=== PATIENT | female | born 1970 | race Caucasian/White ===

== ENCOUNTER 2017-10-02 11:20 | Emergency (ER) | payer OTHER, SELFPAY ==
[2017-10-02 11:21] VITALS: BP 117/82; PULSE 69; RESP 17; TEMP 36.9; O2SAT 96; BMI 28.9
--- NOTE | 2017-10-02 11:30 | RAD_ITS ---
STUDY: X-RAY - LEFT HUMERUS REASON FOR EXAM: Female, 47 years old. Status post fall 4 days ago. TECHNIQUE: AP and lateral view(s) of the humerus. COMPARISON: None. FINDINGS: Normal visualized humerus. There is no demonstrated fracture or osseous destructive process. Partially visualized left pacemaker is seen. There is no demonstrated soft tissue abnormality. RAD/Humerus min 2 Views IMPRESSION: No evidence of acute fracture or dislocation. Electronically Signed: Dawood Christensen MD at 12:14 EDT Tel , Service support ,
--- NOTE | 2017-10-02 11:37 | ED.DCSUM_ITS ---
- ER Visit Summary Date of Service: 10/02/17 Chief Complaint: Left upper arm injury History of Present Illness: The patient is a 47 F presents to the emergency department with injury to her left upper arm. The patient had a mechanical fall in the bathtub 4 days ago. She had the outside of her left shoulder just at her proximal humerus. Over the past 2 days, the pain is worsened. She has had increasing swelling. She has had difficult range of motion. She did not strike her head. She denies loss of consciousness. She denies any other systemic symptoms. She is not on anticoagulants. Physical Examination: Exam is relatively unremarkable. Patient has ecchymosis over the proximal humerus. There is no pain to palpation along the shoulder. There is no pain at the elbow. There is no pain with pronation or supination of the forearm. She has normal pulses. Axillary nerve is preserved. No tenderness over the ribs. Lungs are clear. GCS is 15. Test Results: [] Emergency Department Course and Treatment: The patient fell onto her left upper humerus. Compartments are soft. Pulses are normal. She does have some ecchymosis around the area. Plain films were obtained. There is no evidence of acute fracture. I do feel this is likely bony contusion. The patient was placed in a sling but counseled on increasing range of motion to prevent frozen shoulder. She was given 2 days of analgesics and will follow up with PCP for reevaluation. Treatment Plan: [] Disposition: Discharge Impression: 1. Left proximal humerus contusion This note was generated with [employer] dictation software. It may contain incorrect words, spelling, and punctuation that were not noted in review of the chart prior to signing ED Disposition - Plan for ED Patient: Chief Complaint: Upper Extremity Injury Instructions: ED Sprain Shoulder Prescriptions: Oxycodone HCl/Acetaminophen [Percocet 5/325] 1 tab PO Q6H PRN PRN 3 Days #10 tab PRN Reason: Pain Referrals: Oliver Lyons MD [Primary Care Provider] -
[2017-10-02] MEDS: oxyCODONE 5 MG Tablet PO (11:40)
[2017-10-02 12:19] VITALS: BP 115/76; PULSE 81; RESP 14; O2SAT 99
== END 2017-10-02 12:38 | disposition home or self-care (01) ==
LOC: ED 12:22
PROVIDERS: Emergency Provider Emergency Medicine; Family Provider Family Medicine; PCP Family Medicine
DX: S40.022A Contusion of left upper arm, initial encounter (principal); W18.2XXA Fall in (into) shower or empty bathtub, initial encounter; Y93.9 Activity, unspecified; Y92.002 Bathroom of unspecified non-institutional (private) residence as the place of occurrence of the external cause; Y99.9 Unspecified external cause status; I10 Essential (primary) hypertension; E78.00 Pure hypercholesterolemia, unspecified
CPT/HCPCS: 73060; 99283

== ENCOUNTER 2018-04-26 09:22 | Emergency (ER) | payer OTHER, SELFPAY ==
[2018-04-26 09:23] VITALS: BP 117/71; PULSE 69; RESP 20; TEMP 36.7; O2SAT 98; BMI 28.3
[2018-04-26 09:26] VITALS: O2SAT 100
[2018-04-26 09:53] VITALS: PULSE 69; RESP 16
[2018-04-26] MEDS: Ipratropium/Albuterol Sulfate 3 ML AMPUL.NEB INHALATION (09:53)
[2018-04-26 10:01] LABS: Hematocrit 41.5 % (37-47); Hemoglobin 13.6 g/dl (12.0-15.0); Mean Corp Hgb Conc 32.8 g/gl (32-36); Mean Corpuscular Hgb 29.3 pg (27.0-32.0); Mean Corpuscular Volume 89.4 fL (81-99); Mean Platelet Vol. 10.7 fl (6.2-12.0); Platelet Count 225 K/mm3 (150-450); RBC Distribution Width CV 13.2 % (11.6-14.6); RBC Distribution Width SD 42.9 fl (35.1-43.9); Red Blood Count 4.64 M/mm3 (4.2-5.4); White Blood Count 6.6 K/mm3 (4.4-11.0)
[2018-04-26 10:02] LABS: Scan Indicated on CBC? Y/N NO
[2018-04-26 10:10] LABS: Anion Gap 6 (5-15); BUN 7 mg/dL (7-18); BUN/Creat Ratio 7.8 RATIO (10-20); Calcium,Total 8.4 mg/dL (8.5-10.1); Chloride 107 mmol/L (98-107); D-Dimer Quantitative (DVT/PE) 0.42 FEU/ug/m (0.27-0.49); EST Glomerular Filtration Rate 72 mL/min (>60); Est Glom Filt Rate - Afr Amer 87 mL/min (>60); Estimated Creatinine Clearance 69.53 ml/min; Glucose 92 mg/dL (74-106); Potassium 4.2 mmol/L (3.5-5.1); Sodium Level 139 mmol/L (136-145)
[2018-04-26 10:23] LABS: BNP,B-Type NATRIURETIC PEPTIDE 8.3 pg/mL (0-100)
[2018-04-26 10:30] VITALS: BP 92/61; PULSE 72; RESP 16; O2SAT 98
--- NOTE | 2018-04-26 10:36 | ED.DCSUM_ITS ---
- ER Visit Summary Date of Service: 04/26/18 Chief Complaint: [Shortness of breath and cough History of Present Illness: The patient is a 48 F [presents to the emergency department complaint of shortness of breath that started 4 days ago. Patient's had a cough with some intermittent sputum production which she typically just swallows. Patient had a fever last night up to 101. Patient complains of this of breath with activity and exertion. Patient was seen at urgent care today and referred to the emergency department for further workup and evaluation. Patient did have a chest x-ray today at the urgent care that was unremarkable. Patient denies any headache or body aches. She denies any sick contacts. Patient does have a history of cardiomyopathy and history of CHF. She denies any weight gain or excessive edema.] Physical Examination: [HEENT-PERRLA, EOMI. Cranial nerves II through XII grossly intact. TMs clear. Mucous membranes moist. No adenopathy. Cardiovascular-regular rate and rhythm without murmur or ectopy Lungs-good aeration bilaterally with some faint expiratory wheezes noted bilaterally. No accessory muscle use or retractions. No conversational dyspnea. Abdomen-normoactive bowel sounds, soft, nontender, no rebound or rigidity, no peritoneal signs. Extremities-intact ?4, normal range of motion, normal pulses, atraumatic] Test Results: [CBC with differential obtained was normal. Chemistries were normal. BNP was normal at 8.3. D-dimer was normal at 24 2. Influenza screen was negative.] Emergency Department Course and Treatment: [Patient received a DuoNeb aerosol and was given prednisone 40 mg p.o.] Treatment Plan: [Patient will be started on prednisone and albuterol MDI as well as Tessalon Perles for cough. I suspect patient likely has a viral asthmatic bronchitis.] Disposition: [Discharged home in stable condition. Patient advised to follow-up with primary care physician within next 5-7 days. Patient advised to return if increasing shortness of breath or condition should worsen anyway.] Impression: [Asthmatic bronchitis] This note was generated with [employer] dictation software. It may contain incorrect words, spelling, and punctuation that were not noted in review of the chart prior to signing ED Disposition - Plan for ED Patient: Chief Complaint: Shortness of Breath Referrals: Oliver Lyons MD [Primary Care Provider] -
--- NOTE | 2018-04-26 10:36 | ED.DEP ---
ED Disposition - Plan for ED Patient: Chief Complaint: Shortness of Breath Instructions: ED Bronchitis Asthmatic Prescriptions: Benzonatate [Tessalon Perle] 200 mg PO TID PRN PRN #20 cap PRN Reason: Cough Prednisone [Deltasone] 20 mg PO BID #10 tab Referrals: Oliver Lyons MD [Primary Care Provider] - 5-7 Days
[2018-04-26] MEDS: predniSONE 20 MG Tablet 40 MG PO (10:45)
[2018-04-26 11:15] VITALS: BP 113/56; PULSE 78; RESP 16; O2SAT 99
== END 2018-04-26 11:16 | disposition home or self-care (01) ==
PROVIDERS: Emergency Provider Emergency Medicine; Family Provider Family Medicine; PCP Family Medicine
DX: J45.909 Unspecified asthma, uncomplicated (principal)
CPT/HCPCS: 80048; 83880; 85027; 85379; 87804; 94640; 99285

== ENCOUNTER 2018-12-28 13:41 | Emergency (ER) | payer OTHER, SELFPAY ==
[2018-12-28 13:42] VITALS: BP 115/75; PULSE 88; RESP 18; TEMP 36.7; O2SAT 97
--- NOTE | 2018-12-28 14:05 | CT_ITS ---
STUDY: CT BRAIN WITHOUT CONTRAST REASON FOR EXAM: Female, 48 years old. Headaches and nausea. RADIATION DOSAGE (If Supplied By Facility): CTDIvol = ( 44.99 ) mGy, DLP = ( 779.24 ) mGycm TECHNIQUE: Transaxial CT imaging of the brain was performed without administration of intravenous contrast material. Individualized dose optimization techniques were used for this CT. COMPARISON: No relevant priors. FINDINGS: Normal soft tissue structures. Normal calvarium. Normal size ventricles and extra-axial spaces for the patient's age. Normal white matter tracts of the cerebral hemispheres. Normal basal ganglia and thalami. Normal brainstem. Normal cerebellum. There is no intracranial hemorrhage. There are no findings of an acute ischemic infarction. Normal visualized paranasal sinuses. CT/Brain/Head without Contrast IMPRESSION: Normal unenhanced CT scan of the brain. Electronically Signed: Abel Lundberg, at 15:12 EDT , Service support ,
--- NOTE | 2018-12-28 14:10 | ED.DCSUM_ITS ---
- ER Visit Summary Date of Service: 12/28/18 Chief Complaint: Headache History of Present Illness: The patient is a 48 F pain gradual onset of a frontal headache yesterday. She thinks it might just be from it being hot at her workplace. Said their air conditioning went out. Denies any falls or trauma. No sinus congestion. No fever. No neck pain. She is on no blood thinners. There is no family history of intracranial bleeds or aneurysms. She denies any neurological symptoms. He does have a history of cardiomyopathy of uncertain etiology. Physical Examination: Middle-aged female no acute distress vital signs stable afebrile. She is not septic or toxic. HEENT exam unremarkable. Atraumatic. Pupils are reactive light. No frontal or maxillary sinus tenderness. No signs of trauma. No facial droop. Neck nontender. Lungs clear to auscultation bilaterally. Heart regular rhythm no murmur. Abdomen soft nontender. Extremities moves all 4. Calves nontender no edema no cords. Neurologically she is awake and alert with no focal motor or sensory deficits. No facial droop. Normal speech. Vital signs are faint bilaterally. Dorsi plantar flexion intact bilaterally. Fingertip to nose [id number] all within normal limits. NIH is 0. Test Results: CT scan of the brain without contrast shows no acute abnormality. Reviewed by me and read by the radiologist as normal. Emergency Department Course and Treatment: Patient treated with IV fluids and IV Toradol. Repeat exam at 1610 patient is doing better but still has a headache. She was also given IV Nubain. On repeat exam at 1601 p.m. her headache is resolving. Her neurologic exam remains normal. She is comfortable being discharged home. Treatment Plan: Tylenol Motrin for pain. Follow-up if not improving return if a lot worse. Disposition: Discharge Impression: Acute headache of uncertain etiology This note was generated with [employer] software. It may contain incorrect words, spelling, and punctuation that were not noted in review of the chart prior to signing ED Disposition - Plan for ED Patient: Referrals: Oliver Lyons MD [Primary Care Provider] -
[2018-12-28] MEDS: Ondansetron 4 MG/2 ML Vial IV (14:41)
[2018-12-28] MEDS: Ketorolac 30 MG/ML Syringe IV (14:41)
[2018-12-28] MEDS: 0.9% Normal Saline 1,000 ML 1000 ML IV (14:41)
[2018-12-28] MEDS: Nalbuphine 10 MG/ML Ampul IV (15:41)
--- NOTE | 2018-12-28 16:03 | ED.DEP ---
ED Disposition - Plan for ED Patient: Disposition: Home or Assisted Living Instructions: HEADACHE, Unspecified Referrals: Oliver Lyons MD [Primary Care Provider] - 3-5 Days if not improving Additional Instructions: Plenty of fluids and rest. Your CAT scan brain is normal today.
[2018-12-28 16:41] VITALS: BP 114/66; PULSE 60; RESP 16; O2SAT 98
--- NOTE | 2018-12-28 16:42 | ED.RN ---
REVIEWED D/C INSTRUCTIONS, FOLLOW UP CARE, AND S/S THAT WOULD WARRANT A RETURN TO THE ED WITH PT. PT VERBALIZED AN UNDERSTANDING AND DENIES FURTHER QUESTIONS FOR THIS RN. PT SKIN P/W/D, RESP EVEN AND UNLABORED, PT A&O X 3, NO DISTRESS NOTED. PT AMBULATED OUT OF ED, GAIT STEADY.
== END 2018-12-28 16:43 | disposition home or self-care (01) ==
PROVIDERS: Emergency Provider Emergency Medicine; Family Provider Family Medicine; PCP Family Medicine
DX: R51 Headache (principal); I42.9 Cardiomyopathy, unspecified; R11.0 Nausea
CPT/HCPCS: 70450; 96361; 96374; 96375; 99284; J7030; A4216; J2405

== ENCOUNTER 2019-05-02 09:23 | Emergency (ER) | payer OTHER, SELFPAY ==
[2019-05-02] VITALS (7 sets, daily range): BP systolic 98–117; BP diastolic 43–55; PULSE 79–86; RESP 16–33; TEMP 36.2; O2SAT 96–100; BMI 28.3
--- NOTE | 2019-05-02 09:34 | EKG12_ITS ---
Test Reason : SOB Blood Pressure : / mmHG Vent. Rate : 067 BPM Atrial Rate : 067 BPM P-R Int : 000 ms QRS Dur : 068 ms QT Int : 384 ms P-R-T Axes : 031 159 041 degrees QTc Int : 405 ms Ventricular-paced rhythm Biventricular pacemaker detected Abnormal ECG Confirmed by SUGAR WRIGHT, REKHA ([id number]), film and video editor ROBERT DOWLING ([id number]) on 05/05/2019 12:17:27 PM Referred By: ANANDA Confirmed By:MARCELINO WOOTEN MD
--- NOTE | 2019-05-02 09:35 | ED.VIS.GEN ---
History of Present Illness Chief Complaint: Shortness of Breath Informant: Patient Onset: Yesterday Narrative: Worsening dyspnea since yesterday. States cough for the past 2 months with intermittent productive. No fevers. No tobacco history. No asthma or COPD history. History of nonischemic cardiomyopathy diagnosed 11 years ago with an AICD followed by cardiology from [facility]. States that 15 minutes of chest pain yesterday however was under a lot of stress. States wheezing. Today felt more short of breath, breathing faster with tingling in the fingers around her mouth. Reports took her anxiety medicines with no relief. No current chest pain. Prior similar symptoms: Yes Past Medical History - Allergies and Home Meds Allergies/Adverse Reactions: Allergies naproxen Allergy (Verified 12/28/18 13:42) Hives vancomycin Allergy (Verified 12/28/18 13:42) Rash carvedilol Adverse Reaction (Verified 12/28/18 13:42) Upset Stomach Primary Care Physician: Oliver Lyons MD [Primary Care Provider] - Surgical History: appendectomy, cholecystectomy, - - Pacemaker, ICD. Smoking Status: Never smoker - Family History Maternal Family History: Reports: No pertinent history Paternal Family History: Reports: No pertinent history Review of Systems General: Denies: Chills, Fever, Sweats Eyes: Denies: Visual changes - bilaterally, Diplopia ENT: Denies: Rhinorrhea, Sore throat Cardiovascular: Denies: Chest pain, Palpitations Respiratory: Reports: Dyspnea, Cough, Sputum. Denies: Dyspnea on exertion Gastrointestinal: Denies: Abdominal pain, Nausea, Vomiting, Diarrhea, Melena, Hematochezia Genitourinary: Denies: Dysuria, Hematuria, Frequency Musculoskeletal: Denies: Back pain, Extremity Pain Skin: Denies: Rash, Wounds Neurological: Denies: Headache, Weakness, Numbness Physical Exam Vital Signs/Narrative: Vital Signs Temp Pulse Resp BP Pulse Ox 05/02/19 09:25 97.1 F L 81 30 H 117/43 L 100 Inital Vital Signs reviewed: Yes General: Well nourished, Well developed, - - Mildly hyperventilating, was able to calm down with coaching Head: Normocephalic, Atraumatic Eyes: Perrl, EOMI ENT: Moist mucous membranes, No rhinorrhea Neck: Supple, Nontender Cardiovascular: Regular rate, Regular rhythm, No murmurs Respiratory: Chest nontender, Wheezing, - - Mild expiratory wheeze. Abdomen: Soft, Nontender, Nondistended, Normal bowel sounds Back: Nontender, Normal Inspection Extremities: Nontender, No edema Skin: Normal color, No rash Neurological: Alert, Oriented x3, Cranial nerves II-XII grossly intact, Normal Strength, Normal Sensation Psychological: Normal affect, Normal Mood Diagnostic/Tx/Re-eval Clinical Impression(s) from Imaging Studies Chest X-Ray 05/02/19 09:59 IMPRESSION: No acute cardiopulmonary findings Electronically Signed: Mainor Ayon DO at 10:19 EST Tel , Service support , Abnormal Lab Results 05/02/19 05/02/19 09:50 09:50 WBC 9.5 RBC 4.30 Hgb 12.4 Hct 36.9 L MCV 85.8 MCH 28.8 MCHC 33.6 RDW Std Deviation 39.4 RDW Coeff of Irma 12.6 Plt Count 279 MPV 10.1 Immature Gran % (Auto) 0.300 Neut % (Auto) 73.3 H Lymph % (Auto) 17.1 L Angelina % (Auto) 7.4 Eos % (Auto) 1.5 Baso % (Auto) 0.4 Absolute Neuts (auto) 7.0 Absolute Lymphs (auto) 1.63 Nucleated RBC % 0 Sodium 141 Potassium 3.2 L Chloride 110 H Carbon Dioxide 22.0 Anion Gap 9 BUN 13 Creatinine 0.91 Estim Creat Clear Calc 68.03 Est GFR (MDRD) Af Amer 85 Est GFR (MDRD) Non-Af 70 BUN/Creatinine Ratio 14.3 Glucose 106 Calcium 9.1 Troponin I < 0.015 - EKG Initial EKG Interpretation: Sinus Rhythm - Sinus rate of 67, biventricular pace, T wave inversion in aVL, artifacts noted on inferior and extreme lateral leads. - Medical Decision Making patient with mild wheeze and hyperventilation on exam. Patient allowed toPatient allowed to breath into bag, duoneb tx given. improved. EKG and cardiac w/u neg. CXR neg. mild hypokalemia, orally replaced, no diuretics. PRN MDI, d/w viral syndrome and hyperventilation syndrome. Follow up as outpatient. ED Disposition - Plan for ED Patient: Disposition: Home or Assisted Living Diagnosis: Upper respiratory infection, Hyperventilation syndrome, Hypokalemia Instructions: BRONCHITIS, No Antibiotic (Adult), Hyperventilation Syndrome Prescriptions: Albuterol Inhaler [Ventolin Hfa] 1 - 2 puff INHALATION Q4H PRN PRN #1 inhaler PRN Reason: Wheezing Referrals: Oliver Lyons MD [Primary Care Provider] - 3-5 Days if not improving
[2019-05-02] MEDS: Ipratropium/Albuterol Sulfate 3 ML AMPUL.NEB INHALATION (09:42)
--- NOTE | 2019-05-02 09:59 | RAD_ITS ---
STUDY: X-RAY CHEST REASON FOR EXAM: Female, 49 years old. Shortness of breath. Cough. TECHNIQUE: PA and lateral views of the chest. COMPARISON: October 03, 2015. FINDINGS: Left-sided cardiac device in position. Cardiac silhouette unremarkable. Pulmonary vascularity unremarkable. Aorta unremarkable. No focal patchy airspace opacities. No pleural effusions. Right upper quadrant surgical clips. Osseous structures intact. No pneumothorax. RAD/Chest PA and Lateral IMPRESSION: No acute cardiopulmonary findings Electronically Signed: Mainor Ayon DO at 10:19 EST Tel , Service support ,
[2019-05-02 10:00] LABS: Absolute Lymphocyte Count 1.63 X10^3/uL (0.83-4.51); Basophil# 0.04 X10^3/uL; Basophil% 0.4 % (0-1); Eosinophil# 0.14 X10^3/uL; Eosinophils% 1.5 % (0-5); Hematocrit 36.9 % (37-47); Hemoglobin 12.4 g/dL (12.0-15.0); Lymphocyte # 1.63 X10^3/ul (4.0); Lymphocyte % 17.1 % (19-41); Mean Corp Hgb Conc 33.6 g/dL (32-36); Mean Corpuscular Hgb 28.8 pg (27.0-32.0); Mean Corpuscular Volume 85.8 fL (81-99); Mean Platelet Vol. 10.1 fl (6.2-12.0); Monocyte# 0.71 X10^3/uL; Monocyte% 7.4 % (0-10); NRBC Flagged by Analyzer 0 % (0-5); Neutrophil # 6.99 X10^3/uL (2.7-7.7); Neutrophil % 73.3 % (47-70); Platelet Count 279 K/mm3 (150-450); RBC Distribution Width CV 12.6 % (11.6-14.6); RBC Distribution Width SD 39.4 fl (35.1-43.9); White Blood Count 9.5 K/mm3 (4.4-11.0)
[2019-05-02 10:22] LABS: Anion Gap 9 (5-15); BUN 13 mg/dL (7-18); BUN/Creat Ratio 14.3 RATIO (10-20); Calcium,Total 9.1 mg/dL (8.5-10.1); Chloride 110 mmol/L (98-107); Creatinine, Serum 0.91 mg/dL (0.55-1.02); EST Glomerular Filtration Rate 70 mL/min (>60); Est Glom Filt Rate - Afr Amer 85 mL/min (>60); Estimated Creatinine Clearance 68.03 ml/min; Glucose 106 mg/dL (74-106); Potassium 3.2 mmol/L (3.5-5.1); Sodium Level 141 mmol/L (136-145)
== END 2019-05-02 10:49 | disposition home or self-care (01) ==
PROVIDERS: Emergency Provider Emergency Medicine; Family Provider Family Medicine; PCP Family Medicine
DX: J06.9 Acute upper respiratory infection, unspecified (principal); F45.8 Other somatoform disorders; E87.6 Hypokalemia; Z90.49 Acquired absence of other specified parts of digestive tract; Z95.810 Presence of automatic (implantable) cardiac defibrillator
CPT/HCPCS: 71046; 80048; 84484; 85025; 93005; 94640; 99285; A4216

== ENCOUNTER 2019-06-10 15:50 | Emergency (ER) | payer OTHER, SELFPAY ==
[2019-05-02 09:25] VITALS: BMI 28.3
[2019-06-10 15:51] VITALS: BP 113/69; PULSE 97; RESP 16; TEMP 37.4; O2SAT 97; BMI 27.8
--- NOTE | 2019-06-10 15:54 | ED.RN ---
PT STATES NEVERMIND AND WALKED OUT OF TRIAGE
== END 2019-06-10 16:54 | disposition left against medical advice (07) ==
LOC: ED 16:30
PROVIDERS: Emergency Provider Emergency Medicine; Family Provider Family Medicine; PCP Family Medicine
DX: R51 Headache (principal)

== ENCOUNTER 2020-01-14 00:05 | Emergency (ER) | payer BC, SELFPAY ==
[2020-01-14 00:07] VITALS: BP 138/71; PULSE 77; PULSE 79; RESP 16; RESP 18; TEMP 36.4; O2SAT 100; BMI 31.0
--- NOTE | 2020-01-14 00:13 | ED.DCSUM_ITS ---
History of Present Illness Chief Complaint: Nausea/Vomiting Informant: Patient Narrative: Presenting with abdominal pain which is been going on for a couple of days. She describes it as periumbilical. Patient has not had a fever. She states that sometimes she is able to tolerate p.o. fluids and other times she vomits this up. She also has diarrhea. She states she says cholecystectomy but no other abdominal surgeries. She describes her pain as a 10. Past Medical History - Allergies and Home Meds Allergies/Adverse Reactions: Allergies naproxen Allergy (Verified 06/10/19 15:51) Hives vancomycin Allergy (Verified 06/10/19 15:51) Rash carvedilol Adverse Reaction (Verified 06/10/19 15:51) Upset Stomach Primary Care Physician: Oliver Lyons MD [Primary Care Provider] - Prior records reviewed: Yes Surgical History: appendectomy, cholecystectomy, - - Pacemaker, ICD. Smoking Status: Never smoker - Family History Maternal Family History: Reports: No pertinent history Paternal Family History: Reports: No pertinent history Review of Systems General: Denies: Chills, Fever, Sweats Eyes: Denies: Visual changes - bilaterally, Diplopia ENT: Denies: Rhinorrhea, Sore throat Cardiovascular: Denies: Chest pain, Palpitations Respiratory: Denies: Dyspnea, Cough, Dyspnea on exertion Gastrointestinal: Reports: Abdominal pain, Nausea, Vomiting, Diarrhea. Denies: Melena, Hematochezia Genitourinary: Denies: Dysuria, Hematuria, Frequency Musculoskeletal: Denies: Back pain, Extremity Pain Skin: Denies: Rash, Wounds Neurological: Denies: Headache, Weakness, Numbness Endocrine: Denies: Polyuria, Polydipsia Hematologic: Denies: Easy bruising, Easy bleeding Allergy: Denies: Uticaria Physical Exam Vital Signs/Narrative: Vital Signs Temp Pulse Resp BP Pulse Ox 01/14/20 00:07 97.5 F L 79 18 138/71 H 100 General: Well nourished, Well developed, No Acute Distress Head: Normocephalic, Atraumatic Eyes: Perrl, EOMI ENT: Moist mucous membranes Neck: Supple, Nontender Cardiovascular: Regular rate, Regular rhythm Respiratory: No distress, CTA bilaterally Rectal: - - Tenderness to palpation above the umbilicus in the midline. Non- peritoneal. No rebound Back: Nontender, Normal Inspection Extremities: Nontender, No edema Skin: Normal color, No rash Neurological: Alert, Oriented x3, Cranial nerves II-XII grossly intact Psychological: Normal affect, Normal Mood Diagnostic/Tx/Re-eval Clinical Impression(s) from Imaging Studies Abdomen/Pelvis CT 01/14/20 00:24 IMPRESSION: Hepatic steatosis. There is fluid within the endometrial canal. Small amount of fluid in the pelvis. There is heterogeneous appearance to the cervix. Recommend correlation with pelvic ultrasound. The cervix may represent phase of cycle however mass cannot be excluded. Status post cholecystectomy. No CT evidence for acute diverticulitis. Small pulmonary nodule. Correlate with prior studies for stability versus follow-up CT scan in 6-12 months to ensure ability. Other findings as discussed above. Electronically Signed: Christian Infanteford, at 1:43 EDT Tel , Service support , Laboratory Data 01/14/20 01/14/20 00:25 00:25 WBC 9.2 RBC 4.28 Hgb 12.5 Hct 38.1 MCV 89.0 MCH 29.2 MCHC 32.8 RDW Std Deviation 41.4 RDW Coeff of Irma 12.7 Plt Count 246 MPV 10.3 Immature Gran % (Auto) 0.300 Neut % (Auto) 69.5 Lymph % (Auto) 22.8 Hockley % (Auto) 6.3 Eos % (Auto) 0.8 Baso % (Auto) 0.3 Absolute Neuts (auto) 6.4 Absolute Lymphs (auto) 2.11 Nucleated RBC % 0 Sodium 138 Potassium 3.4 L Chloride 109 H Carbon Dioxide 25.0 Anion Gap 4 L BUN 8 Creatinine 0.85 Estim Creat Clear Calc 72.83 Est GFR (MDRD) Af Amer 92 Est GFR (MDRD) Non-Af 76 BUN/Creatinine Ratio 9.4 L Glucose 107 H Calcium 8.9 Total Bilirubin 0.40 AST 15 ALT 23 Alkaline Phosphatase 89 Total Protein 7.2 Albumin 3.8 Globulin 3.4 Albumin/Globulin Ratio 1.1 Lipase 59 L - Medical Decision Making She was seen and evaluated on arrival for abdominal pain. On examination it appears to be for above the umbilicus. No other tenderness palpated on examination. Patient also states that she is nauseous. Patient was treated with morphine and Zofran. This did improve her pain. His lab work was normal. She has no concern for because she states her has had a vasectomy. She also states she is monogamous. CT of the abdomen pelvis does not show any acute abdominal findings with exception of some fluid in the vaginal canal. She is not having any vaginal complaints or urinary complaints. It also did identify a pulmonary nodule. Patient was counseled on follow-up for this. I did offer the patient a ultrasound however she did not want to have to wait for them to come in and wait for read. She was given a prescription to have this done as an outpatient in the morning. She was amenable to this plan. Was counseled if she continues to have pain and/or nausea she should return to the ER for repeat evaluation. Impression: 1. Abdominal pain 2. Nausea 3. Pulmonary nodule 4. Small fluid in the endometrial canal and pelvis ED Disposition - Plan for ED Patient: Disposition: Home or Assisted Living Prescriptions: Ondansetron [Zofran Odt] 4 mg PO Q8H PRN PRN #10 tab PRN Reason: Nausea Transmission Status: Received by [id number] Referrals: Oliver Lyons MD [Primary Care Provider] -
--- NOTE | 2020-01-14 00:24 | CT_ITS ---
STUDY: CT ABDOMEN AND PELVIS WITH CONTRAST REASON FOR EXAM: Female, 49 years old. N/V SINCE WEDNESDAY/BACK PAIN TODAY. Hx of cholecystectomy and ICD. RADIATION DOSAGE (If Supplied By Facility): CTDIvol = ( 15.85 ) mGy, DLP = ( 1178.41 ) mGycm TECHNIQUE: Transaxial images were obtained from the dome of the diaphragm to the symphysis pubis without oral contrast. IV 75mL Isovue-[id number] was administered. Sagittal and coronal images were reconstructed. Individualized dose optimization techniques were used for this CT. COMPARISON: None. FINDINGS: Atelectasis/scarring within the lungs. There is AICD leads noted within the left chest cavity partially visualized. There is a left lower lobe 4 mm pulmonary nodule. No prior imaging is available for comparison. There is decreased attenuation of the liver consistent with steatosis. There are surgical clips in the gallbladder fossa consistent with a prior cholecystectomy. Normal spleen. Normal pancreas. Normal bilateral adrenal glands. Normal right kidney. Normal left kidney. Normal visualized stomach. Normal small intestine. Normal colon. There is non-visualization of the appendix. Normal abdominal aorta. Normal inferior vena cava. Normal retroperitoneum. Normal urinary bladder. Fluid within the endometrial canal. Consider correlation with pelvic ultrasound. Small amount of fluid in the pelvis. Right adnexal 1.2 cm low-attenuation structure likely ovarian. Cervix is heterogeneous. Normal abdominal wall. There are diffuse degenerative changes of the visualized lumbar spine. CT/Abdomen/Pelvis W IV Cont ONLY IMPRESSION: Hepatic steatosis. There is fluid within the endometrial canal. Small amount of fluid in the pelvis. There is heterogeneous appearance to the cervix. Recommend correlation with pelvic ultrasound. The cervix may represent phase of cycle however mass cannot be excluded. Status post cholecystectomy. No CT evidence for acute diverticulitis. Small pulmonary nodule. Correlate with prior studies for stability versus follow-up CT scan in 6-12 months to ensure ability. Other findings as discussed above. Electronically Signed: Christian Gallego, at 1:43 EDT Tel , Service support ,
[2020-01-14 00:33] LABS: Absolute Lymphocyte Count 2.11 X10^3/uL (0.83-4.51); Absolute Neutrophil Count 6.4 X10^3/uL (2.0-7.7); Basophil# 0.03 X10^3/uL; Basophil% 0.3 % (0-1); Eosinophil# 0.07 X10^3/uL; Eosinophils% 0.8 % (0-5); Hematocrit 38.1 % (37-47); Hemoglobin 12.5 g/dL (12.0-15.0); Lymphocyte # 2.11 X10^3/ul (4.0); Lymphocyte % 22.8 % (19-41); Mean Corp Hgb Conc 32.8 g/dL (32-36); Mean Corpuscular Hgb 29.2 pg (27.0-32.0); Mean Platelet Vol. 10.3 fl (6.2-12.0); Monocyte# 0.58 X10^3/uL; Monocyte% 6.3 % (0-10); NRBC Flagged by Analyzer 0 % (0-5); Neutrophil # 6.42 X10^3/uL (2.7-7.7); Neutrophil % 69.5 % (47-70); Platelet Count 246 K/mm3 (150-450); RBC Distribution Width CV 12.7 % (11.6-14.6); RBC Distribution Width SD 41.4 fl (35.1-43.9); Red Blood Count 4.28 M/mm3 (4.2-5.4); White Blood Count 9.2 K/mm3 (4.4-11.0)
[2020-01-14 00:47] LABS: ALB/GLOB Ratio 1.1 RATIO (0.9-2.4); AST(SGOT) 15 U/L (15-37); Alanine Aminotransfer ALT/SGPT 23 U/L (13-56); Albumin, Serum 3.8 g/dL (3.2-5.0); Alkaline Phosphatase 89 U/L (45-117); Anion Gap 4 (5-15); BUN 8 mg/dL (7-18); BUN/Creat Ratio 9.4 RATIO (10-20); Calcium,Total 8.9 mg/dL (8.5-10.1); Chloride 109 mmol/L (98-107); Creatinine, Serum 0.85 mg/dL (0.55-1.02); EST Glomerular Filtration Rate 76 mL/min (>60); Est Glom Filt Rate - Afr Amer 92 mL/min (>60); Estimated Creatinine Clearance 72.83 ml/min; Globulin 3.4 g/dL (2.2-4.2); Glucose 107 mg/dL (74-106); Lipase 59 U/L (73-393); Potassium 3.4 mmol/L (3.5-5.1); Protein, Total 7.2 g/dL (6.4-8.2); Sodium Level 138 mmol/L (136-145)
[2020-01-14] MEDS: Ondansetron 4 MG/2 ML Vial IV (00:49)
[2020-01-14] MEDS: 0.9% Normal Saline 1,000 ML 999 ML IV (00:50)
[2020-01-14] MEDS: Morphine 4 MG/ML Syringe IV ×2 (00:50→01:48)
[2020-01-14 01:58] LABS: Bacteria 0 SEEN /hpf (None Seen); Mucous, Urine 0 SEEN /hpf (<or=2+); White Blood Cells 0 SEEN /hpf (0-5)
[2020-01-14 01:59] LABS: Color, Urine Yellow (Yellow); Glucose, Dipstick Normal (Normal); Ketone-Dipstick Negative (Negative); Leukocyte Esterase-Dipstick Negative /ul (Negative); Nitrite-Dipstick Negative (Negative); Occult Blood-Urine 10 /ul (Negative); Protein-Dipstick Negative (Negative); Urine Bilirubin Dipstick Negative (Negative); Urine Clarity Clear (Clear); Urine Urobilinogen Normal (Normal)
[2020-01-14 02:02] LABS: Red Blood Cells-Urine 0-5 SEEN /hpf (0-5)
[2020-01-14 02:04] LABS: Squamous Epithelial Cells - UA 0-5 SEEN /hpf (5-10)
[2020-01-14 02:44] VITALS: BP 105/52; PULSE 77; RESP 16; O2SAT 99
== END 2020-01-14 02:46 | disposition home or self-care (01) ==
PROVIDERS: Emergency Provider Student in an Organized Health Care Education/Training Program; PCP Family Medicine
DX: R10.9 Unspecified abdominal pain (principal); R11.2 Nausea with vomiting, unspecified; R91.1 Solitary pulmonary nodule; K76.0 Fatty (change of) liver, not elsewhere classified; Z90.49 Acquired absence of other specified parts of digestive tract; Z95.0 Presence of cardiac pacemaker; R19.7 Diarrhea, unspecified
CPT/HCPCS: 74177; 80053; 81001; 83690; 85025; 96361; 96374; 96375; 96376; 99284; J7030; Q9967; A4216; J2405

== ENCOUNTER → 2020-01-18 16:14 | Outpatient (CLI) | payer BC, SELFPAY ==
[2020-01-14 00:07] VITALS: BMI 31.0
--- NOTE | 2020-01-18 16:17 | US_ITS ---
STUDY: ULTRASOUND OF THE FEMALE PELVIS - COMPLETE REASON FOR EXAM: Female, 49 years old. PELVIC PAIN ABN CT LMP: January 09, 2020 TECHNIQUE: Transvaginal TECHNICAL QUALITY: Adequate. COMPARISON: None. FINDINGS: The uterus is anteverted and is in a midline position. The uterus measures 10.3 x 6.6 x 4.9 cm. There is a Nabothian cyst of the cervix. The endometrium measures 15 mm in thickness, and is hyperechoic. There is 0.6 cm cystic region of the endometrium. There is no demonstrated myometrial mass. I.U.D. - The patient does not have an I.U.D. The right ovary is visualized. The right ovary measures 3.3 x 2.0 x 1.9 cm. There is 2.2 cm cyst with septation. There is normal arterial and normal venous vascularity. The left ovary is visualized. The left ovary measures 2.6 x 1.8 x 1.4 cm. There is 1.4 cm follicle. There is no visualized left adnexal mass or complex lesion. There is normal arterial and normal venous vascularity. There is mild fluid in the cul-de-sac. US/Transvaginal Non- IMPRESSION: Right adnexal cyst. Cystic region of the endometrium. Mild free fluid. Electronically Signed: Gonzalo George MD at 10:28 EDT , Service support ,
== END ==
LOC: US 16:17
PROVIDERS: PCP Family Medicine; Referring Provider Student in an Organized Health Care Education/Training Program; Visit Provider Student in an Organized Health Care Education/Training Program
DX: R10.2 Pelvic and perineal pain (principal)
CPT/HCPCS: 76830

== ENCOUNTER 2020-03-12 12:00 | Emergency (ER) | payer BC, SELFPAY ==
[2020-03-12 12:01] VITALS: BP 122/71; PULSE 106; RESP 19; TEMP 36.4; O2SAT 100; BMI 28.3
--- NOTE | 2020-03-12 12:25 | CT_ITS ---
STUDY: CT ABDOMEN AND PELVIS WITHOUT CONTRAST REASON FOR EXAM: Female, 50 years old. ABDOMINAL PAIN. S/P UPPER/LOWER SCOPE YESTERDAY AT [facility]. PRIOR APPENDECTOMY AND CHOLECYSTECTOMY RADIATION DOSAGE (If Supplied By Facility): CTDIvol = ( 14.38 ) mGy, DLP = ( 925.07 ) mGycm TECHNIQUE: Transaxial images were obtained from the dome of the diaphragm to the symphysis pubis without oral contrast, and without intravenous contrast. Sagittal and coronal images were reconstructed. Individualized dose optimization techniques were used for this CT. COMPARISON: Comparison is made with prior study dated 01/14/2020. FINDINGS: The visualized lung bases are unremarkable. A dual-chamber pacemaker is seen. A left-sided AICD lead noted within the left chest. There is decreased attenuation of the liver consistent with steatosis. There are surgical clips in the gallbladder fossa consistent with a prior cholecystectomy. Normal spleen. Normal pancreas. Normal bilateral adrenal glands. Normal right kidney. Normal left kidney. Normal visualized stomach. Normal small intestine. Anastomosis seen in the region of the proximal descending colon. There are surgical clips in the region of the appendix consistent with a prior appendectomy. Normal abdominal aorta. Normal inferior vena cava. Normal retroperitoneum. Normal urinary bladder. Small benign-appearing bilateral inguinal lymph nodes. There is a small umbilical hernia containing fat. Normal osseous structures. CT/Abdomen/Pelvis W IV Cont ONLY IMPRESSION: Fatty infiltration of the liver. Electronically Signed: Abel Lundberg, at 14:00 EDT , Service support ,
[2020-03-12] MEDS: Ondansetron 4 MG/2 ML Vial IV (13:06)
[2020-03-12] MEDS: 0.9% Normal Saline 1,000 ML 1000 ML IV (13:06)
[2020-03-12 13:14] LABS: Absolute Lymphocyte Count 0.96 X10^3/uL (0.83-4.51); Basophil# 0.03 X10^3/uL; Basophil% 0.4 % (0-1); Eosinophil# 0.01 X10^3/uL; Eosinophils% 0.1 % (0-5); Hematocrit 40.3 % (37-47); Hemoglobin 13.3 g/dL (12.0-15.0); Lymphocyte # 0.96 X10^3/ul (4.0); Lymphocyte % 11.4 % (19-41); Mean Corpuscular Hgb 28.9 pg (27.0-32.0); Mean Corpuscular Volume 87.4 fL (81-99); Mean Platelet Vol. 10.2 fl (6.2-12.0); Monocyte% 4.7 % (0-10); NRBC Flagged by Analyzer 0 % (0-5); Platelet Count 262 K/mm3 (150-450); RBC Distribution Width CV 12.4 % (11.6-14.6); RBC Distribution Width SD 39.7 fl (35.1-43.9); Red Blood Count 4.61 M/mm3 (4.2-5.4); White Blood Count 8.4 K/mm3 (4.4-11.0)
[2020-03-12 13:23] LABS: Internal QC Validated? YES +Cl - CLEAR BKGD; Pregnancy, Serum, hCG Quali. NEGATIVE Negative
[2020-03-12 13:31] LABS: ALB/GLOB Ratio 1.1 RATIO (0.9-2.4); AST(SGOT) 20 U/L (15-37); Alanine Aminotransfer ALT/SGPT 27 U/L (13-56); Alkaline Phosphatase 100 U/L (45-117); Anion Gap 4 (5-15); BUN 7 mg/dL (7-18); BUN/Creat Ratio 7.3 RATIO (10-20); Calcium,Total 9.6 mg/dL (8.5-10.1); Chloride 109 mmol/L (98-107); Creatinine, Serum 0.96 mg/dL (0.55-1.02); EST Glomerular Filtration Rate 66 mL/min (>60); Est Glom Filt Rate - Afr Amer 80 mL/min (>60); Estimated Creatinine Clearance 63.79 ml/min; Globulin 3.7 g/dL (2.2-4.2); Glucose 116 mg/dL (74-106); Lipase 74 U/L (73-393); Potassium 3.8 mmol/L (3.5-5.1); Protein, Total 7.7 g/dL (6.4-8.2); Sodium Level 141 mmol/L (136-145)
[2020-03-12 13:37] LABS: Lactic Acid 1.7 mmol/L (0.4-1.9)
--- NOTE | 2020-03-12 13:54 | ED.DCSUM_ITS ---
History of Present Illness Chief Complaint: Nausea/Vomiting - Abdominal Pain/Flank Pain Onset: Yesterday Context: Gradual Onset Timing: Continuous Quality: Burning, Sharp Location: Epigastric Worsened by: Movement - Nausea/Vomiting/Emesis GI Symptom: Nausea, Vomiting Onset: Today Quality: Nonbilious. Negative for: Blood streaks, Coffee ground, Hematemesis Associated Symptoms: Hematuria Narrative: Patient is a 50-year-old female with history of cardiomyopathy and bundle branch block presenting with nausea, vomiting and abdominal pain. Patient had an EGD and colonoscopy yesterday by Dr. Canales at [facility]. She states she had some abdominal discomfort after the procedure and a sore throat. This morning when she woke up she developed nausea and has had multiple episodes of vomiting. Patient states her vomit is been yellow and green in color. No black or blood. She states she is continued to have some diarrhea since her colonoscopy but again no black or blood. Patient did have 3 biopsies during her EGD 1 in her esophagus and 2 in her stomach. She was told those were areas of inflammation. In addition starting 2 days ago patient's head hematuria and suprapubic discomfort. She is worried she might have a urinary tract infection. Patient not take any medications for her pain. She had a colonoscopy because she was having epigastric abdominal pain. She called her surgeon today who was not available so they said to go to the ER to be evaluated further. Patient has any fever or chills. She has any chest pain or difficulty breathing. No other complaints at this time. Past Medical History - Allergies and Home Meds Allergies/Adverse Reactions: Allergies naproxen Allergy (Verified 06/10/19 15:51) Hives vancomycin Allergy (Verified 06/10/19 15:51) Rash carvedilol Adverse Reaction (Verified 06/10/19 15:51) Upset Stomach Primary Care Physician: Oliver Lyons MD [Primary Care Provider] - Past Medical History: - - History of CHF/nonischemic cardiomyopathy status post pacemaker placement, bundle branch block, Surgical History: appendectomy, cholecystectomy, - - Pacemaker, ICD. Lives: Spouse/ Significant Other Smoking Status: Never smoker - Family History Maternal Family History: Reports: No pertinent history Paternal Family History: Reports: No pertinent history Review of Systems General: Denies: Chills, Fever, Sweats Eyes: Denies: Visual changes - bilaterally, Diplopia ENT: Denies: Rhinorrhea, Sore throat Cardiovascular: Denies: Chest pain, Palpitations Respiratory: Denies: Dyspnea, Cough, Dyspnea on exertion Gastrointestinal: Reports: Abdominal pain, Nausea, Vomiting, Diarrhea. Denies: Melena, Hematochezia Genitourinary: Denies: Dysuria, Hematuria, Frequency Musculoskeletal: Denies: Back pain, Extremity Pain Skin: Denies: Rash, Wounds Neurological: Denies: Headache, Weakness, Numbness Physical Exam Vital Signs/Narrative: Vital Signs Temp Pulse Resp BP Pulse Ox 03/12/20 12:01 97.6 F L 106 H 19 H 122/71 H 100 Inital Vital Signs reviewed: Yes General: Well nourished, Well developed, No Acute Distress Head: Normocephalic, Atraumatic Eyes: Perrl, EOMI ENT: Moist mucous membranes, No rhinorrhea Neck: Supple, Nontender Cardiovascular: Regular rate, Regular rhythm, No murmurs Respiratory: No distress, CTA bilaterally, Chest nontender Abdomen: Soft, Nondistended, Normal bowel sounds, Tender - Diffusely, Hyperactive bowel sounds. Negative for: Guarding, Rebound tenderness, Murrell's sign Back: Nontender, Normal Inspection Extremities: Nontender, No edema Skin: Normal color, No rash Neurological: Alert, Oriented x3, Cranial nerves II-XII grossly intact, Normal Strength, Normal Sensation Psychological: Normal affect, Normal Mood Diagnostic/Tx/Re-eval CT: Abdomen and Pelvis, - - Fatty liver Laboratory Data 03/12/20 03/12/20 03/12/20 13:03 13:03 13:03 WBC 8.4 RBC 4.61 Hgb 13.3 Hct 40.3 MCV 87.4 MCH 28.9 MCHC 33.0 RDW Std Deviation 39.7 RDW Coeff of Irma 12.4 Plt Count 262 MPV 10.2 Immature Gran % (Auto) 0.400 Neut % (Auto) 83.0 H Lymph % (Auto) 11.4 L [place] % (Auto) 4.7 Eos % (Auto) 0.1 Baso % (Auto) 0.4 Absolute Neuts (auto) 7.0 Absolute Lymphs (auto) 0.96 Nucleated RBC % 0 Sodium 141 Potassium 3.8 Chloride 109 H Carbon Dioxide 28.0 Anion Gap 4 L BUN 7 Creatinine 0.96 Estim Creat Clear Calc 63.79 Est GFR (MDRD) Af Amer 80 Est GFR (MDRD) Non-Af 66 BUN/Creatinine Ratio 7.3 L Glucose 116 H Lactic Acid 1.7 Calcium 9.6 Total Bilirubin 0.40 AST 20 ALT 27 Alkaline Phosphatase 100 Total Protein 7.7 Albumin 4.0 Globulin 3.7 Albumin/Globulin Ratio 1.1 Lipase 74 Serum , Qual 03/12/20 13:03 WBC RBC Hgb Hct MCV MCH MCHC RDW Std Deviation RDW Coeff of Irma Plt Count MPV Immature Gran % (Auto) Neut % (Auto) Lymph % (Auto) [place] % (Auto) Eos % (Auto) Baso % (Auto) Absolute Neuts (auto) Absolute Lymphs (auto) Nucleated RBC % Sodium Potassium Chloride Carbon Dioxide Anion Gap BUN Creatinine Estim Creat Clear Calc Est GFR (MDRD) Af Amer Est GFR (MDRD) Non-Af BUN/Creatinine Ratio Glucose Lactic Acid Calcium Total Bilirubin AST ALT Alkaline Phosphatase Total Protein Albumin Globulin Albumin/Globulin Ratio Lipase Serum , Qual NEGATIVE - Medical Decision Making Patient is evaluated for nausea and vomiting as well as abdominal pain after an EGD and colonoscopy yesterday. She appears uncomfortable but no acute distress. Her vital signs are normal. Patient is given IV Zofran and fluids with improvement of her symptoms. While she is in the ER she does start to complain of headache and states she takes Tylenol for this at home. She is given a dose of Tylenol in the ER as well. Lab work is unremarkable. No findings consistent with pancreatitis and no transaminitis. She does not have any leukocytosis and her lactate is normal. Do not think that she has mesenteric ischemia. Patient does not have any findings with UTI on her urinalysis. CT abdomen pelvis is negative for signs of perforation or any other acute process. Patient is feeling improved and is discharged home with prescription for Zofran. I did touch base with her surgeon, Dr. Canales, who is aware of her visit today and will follow up with her outpatient. She is given a work note for today and tomorrow per her request. Patient is counseled on signs and symptoms requiring return to the emergency room. Patient verbalizes agreement and understand this plan. Patient discharged home in stable and improved condition. ED Disposition - Plan for ED Patient: Disposition: Home or Assisted Living Diagnosis: Nausea and vomiting, Abdominal pain Instructions: ED Abdominal Pain Unkn Cause Fem, ED Nausea Vomiting Adult Prescriptions: Ondansetron [Zofran Odt] 4 mg PO Q8H PRN PRN #10 tab PRN Reason: Nausea Transmission Status: Pending to [id number] Referrals: Oliver Lyons MD [Primary Care Provider] - Additional Instructions: Please continue the medications as prescribed. We will start you on nausea medicine to help with your symptoms today. You do not have any source of infection or surgical abnormalities. No UTI. Please follow-up with Dr. Canales in this next week.
[2020-03-12 14:00] VITALS: BP 106/74; PULSE 78; RESP 18; O2SAT 96
[2020-03-12] MEDS: Acetaminophen 500 MG Tablet 1000 MG PO (14:03)
[2020-03-12] MEDS: Famotidine 200 MG/20 ML MDV 20 MG in 0.9% Normal Saline (Pres. free 8 ML 300 MG IV (14:08)
[2020-03-12 14:09] LABS: Bacteria 0 SEEN /hpf (None Seen); Mucous, Urine 0 SEEN /hpf (<or=2+); Red Blood Cells-Urine 0 SEEN /hpf (0-5); White Blood Cells 0 SEEN /hpf (0-5)
[2020-03-12 14:13] LABS: Color, Urine Straw (Yellow); Glucose, Dipstick Normal (Normal); Ketone-Dipstick 5 mg/dl (Negative); Leukocyte Esterase-Dipstick Negative /ul (Negative); Nitrite-Dipstick Negative (Negative); Occult Blood-Urine Negative /ul (Negative); Protein-Dipstick Negative (Negative); Urine Bilirubin Dipstick Negative (Negative); Urine Clarity Clear (Clear); Urine Urobilinogen Normal (Normal)
[2020-03-12 14:21] LABS: Squamous Epithelial Cells - UA 0-5 SEEN /hpf (5-10)
== END 2020-03-12 15:04 | disposition home or self-care (01) ==
PROVIDERS: Emergency Provider Emergency Medicine; PCP Family Medicine
DX: R10.9 Unspecified abdominal pain (principal); R11.2 Nausea with vomiting, unspecified; I50.9 Heart failure, unspecified; K76.0 Fatty (change of) liver, not elsewhere classified; I42.9 Cardiomyopathy, unspecified; Z90.49 Acquired absence of other specified parts of digestive tract; Z95.0 Presence of cardiac pacemaker
CPT/HCPCS: 74177; 80053; 81001; 83605; 83690; 84703; 85025; 96361; 96365; 96375; 99284; J7030; Q9967; A4216; J2405; J3490

== ENCOUNTER 2021-07-07 12:45 | Emergency (ER) | payer OTHER, SELFPAY ==
[2021-07-07] VITALS (8 sets, daily range): BP systolic 115–132; BP diastolic 63–75; PULSE 67–85; RESP 14–20; TEMP 36.2–37.1; O2SAT 95–97; BMI 32.5
--- NOTE | 2021-07-07 13:04 | ED.VIS.DYS ---
HPI History of Present Illness Chief Complaint: Shortness of Breath Informant: patient Narrative Narrative: 51-year-old female states that she was diagnosed with COVID-19 on 01 July which was her first day of symptoms. She states she called her doctor's office because she is still feeling generalized fatigue shortness of breath chest heaviness and they directed her to emergency department. On arrival here during my discussion with her she is breathing about 16 times a minute and I asked her to describe her shortness of breath and she states that she just cannot catch her breath. She states that it is about the same now as it was at home. She is 97% on room air. She notes that she was Covid vaccinated she has not been on any steroids or referred for monoclonal antibodies. [facility] Medical History Congestive heart failure (CHF) ICD (implantable cardioverter-defibrillator) in place Home Medications lisinopril 2.5 mg PO DAILY 10/03/15 [History Last Taken 09/12/15] atenolol [Tenormin] 25 mg PO DAILY 04/26/18 [History Last Taken Unknown] diclofenac sodium 75 mg PO BID PRN PRN 04/26/18 [History Last Taken Unknown] gabapentin 300 mg PO QHS 12/28/18 [History Last Taken Unknown] albuterol sulfate 1 - 2 puff INHALATION Q4H PRN PRN #1 inhaler 05/02/19 [Rx Last Taken Unknown] hydroxyzine HCl 25 mg PO Q6H PRN PRN 05/02/19 [History Last Taken Unknown] venlafaxine 37.5 mg PO DAILY 05/02/19 [History Last Taken Unknown] ondansetron 4 mg PO Q8H PRN PRN #10 tab 01/14/20 [Rx Last Taken Unknown] ondansetron 4 mg PO Q8H PRN PRN #10 tab 03/12/20 [Rx Last Taken Unknown] Allergy/AdvReac Type Severity Reaction Status Date / Time naproxen Allergy Hives Verified 07/07/21 12:45 vancomycin Allergy Rash Verified 07/07/21 12:45 carvedilol AdvReac Upset Verified 07/07/21 12:45 Stomach Social History Smoking Status: Never smoker ROS ROS ED Constitutional Constitutional ED: Reports fever(s); Denies chills or weight loss Eyes Eyes: Denies change in vision or diplopia ENT ENT ED: Denies ear pain, rhinorrhea or sore throat Cardiovascular Cardiovascular: Reports chest pain; Denies orthopnea, palpitations or racing heartbeat Respiratory/Chest Respiratory/Chest: Reports cough, dyspnea and dyspnea on exertion; Denies orthopnea Gastrointestinal Gastrointestinal: Denies abdominal pain, diarrhea, nausea or vomiting Genitourinary Genitourinary ED: Denies dysuria, hematuria or urinary frequency Musculoskeletal Musculoskeletal: Reports back pain and myalgias; Denies arthralgias Integumentary Denies abscess or rash Neurologic Neurologic: Reports headache(s); Denies weakness Psychiatric Psychiatric: Denies anxiety, depression, suicidal ideation or suicidal thoughts Endocrine Endocrinology: Denies polydipsia, polyphagia or polyuria Allergic/Immunologic Allergic/Immunologic ED: Denies mouth swelling, tongue swelling or urticaria EXAM Physical Exam Const Vital Signs: 07/07/21 12:45 07/07/21 12:47 07/07/21 12:54 Temperature 97.1 F L 97.1 F L Temperature Source Temporal Temporal Pulse Rate 85 75 75 Respiratory Rate 16 20 H 20 H Blood Pressure 123/71 H 132/67 H 132/67 H Blood Pressure Mean 88 88 88 Pulse Ox 97 97 Oxygen Delivery Method Room Air Room Air 07/07/21 13:49 07/07/21 14:04 07/07/21 14:05 Temperature Temperature Source Pulse Rate 67 73 Respiratory Rate 14 17 Blood Pressure 115/71 115/71 Blood Pressure Mean 85 85 Pulse Ox 95 Oxygen Delivery Method Room Air 07/07/21 15:15 Temperature 98.7 F Temperature Source Temporal Pulse Rate 75 Respiratory Rate 14 Blood Pressure 118/75 Blood Pressure Mean 89 Pulse Ox 97 Oxygen Delivery Method Room Air Positive well nourished and well developed General Appearance ED: well developed HEENT Reports normocephalic, head/scalp atraumatic, TM's clear and moist mucous membranes Negative for atraumatic Tympanic Membrane ED: Yes TM's clear Eyes PERRL and EOMs intact bilaterally Neck no lymphadenopathy, supple and no JVD Resp normal respiratory effort and clear to auscultation bilaterally Cardio regular rate, regular rhythm and no murmurs GI normal to inspection, nondistended, normoactive bowel sounds and non-tender Auscultation: normoactive bowel sounds Palpation: soft Back/Spine no CVA tenderness and normal ROM Extremity normal to inspection General Extremety ED: Negative for edema General Extremity: Negative for edema Neuro oriented x3 and CN's II-XII intact bilaterally Sensorium / Orientation: alert Motor Exam: strength 5/5 throughout Psych mental status grossly normal Mood & Affect: Negative for depressed or tearful Skin no rashes or lesions noted and no wounds MDM MDM MDM Narrative Medical decision making narrative: CBC CMP negative. Troponin high-sensitivity is at 4. CTA of the chest did not demonstrate any pulmonary embolism or groundglass opacities. Patient has not required any supplemental oxygen and ambulates without hypoxia. I think the patient can be discharged home instructions to follow-up Lab Data Attestation: I reviewed the patient's lab results. Labs: Laboratory Results - last 24 hr 07/07/21 07/07/21 14:00 14:00 WBC 6.1 RBC 4.29 Hgb 12.6 Hct 37.0 MCV 86.2 MCH 29.4 MCHC 34.1 RDW Std Deviation 41.5 RDW Coeff of Irma 13.2 Plt Count 224 MPV 10.0 Immature Gran % (Auto) 0.200 Neut % (Auto) 52.8 Lymph % (Auto) 37.0 [place] % (Auto) 6.2 Eos % (Auto) 3.1 Baso % (Auto) 0.7 Absolute Neuts (auto) 3.2 Absolute Lymphs (auto) 2.26 Nucleated RBC % 0 Sodium 140 Potassium 3.5 Chloride 103 Carbon Dioxide 29.0 Anion Gap 8 BUN 11 Creatinine 0.82 Estim Creat Clear Calc 70.88 Est GFR (MDRD) Af Amer 95 Est GFR (MDRD) Non-Af 78 BUN/Creatinine Ratio 13.4 Glucose 86 Calcium 8.1 L Total Bilirubin 0.40 AST 31 ALT 43 Alkaline Phosphatase 98 Troponin I High Sens 4 Total Protein 6.6 Albumin 3.4 Globulin 3.2 Albumin/Globulin Ratio 1.1 Radiography Diagnostic Testing: Clinical Impression(s) from Imaging Studies Chest CTA 07/07/21 13:42 IMPRESSION: No demonstrated PE, or thoracic aortic aneurysm or dissection No superimposed infiltrate, groundglass opacifications, or suspicious noncalcified mass or nodule. There are small bilateral pleural effusions No suspicious adenopathy Degenerative bony changes Fatty liver Electronically Signed: Florian Woodruff MD at 15:10 EST , Service support , EKG Initial EKG: Attestation: I personally reviewed and interpreted this EKG as follows: Comments: Atrial sensed ventricular paced rhythm with a rate of 72 bpm Discharge Plan Triage Chief Complaint: Shortness of Breath Other Complaint: Chest Pain ED Provider: Shan Forde Dx/Rx/DC Orders Clinical Impression: COVID-19, Chest pain, Acute dyspnea Instructions: Coronavirus Disease 2019 (COVID-19): Caring for Yourself or Others Prescriptions: No Action lisinopril 2.5 MG tablet 2.5 mg PO DAILY RF: 0 atenolol [Tenormin] 25 MG tablet 25 mg PO DAILY RF: 0 diclofenac sodium 75 MG tablet 75 mg PO BID PRN PRN (Reason: Pain) RF: 0 gabapentin 300 MG capsule 300 mg PO QHS RF: 0 albuterol sulfate 1 INHALER inhaler 1 - 2 puff inhalation Q4H PRN PRN (Reason: Wheezing) Qty: 1 RF: 0 venlafaxine 37.5 MG tablet 37.5 mg PO DAILY RF: 0 hydroxyzine HCl 25 MG tablet 25 mg PO Q6H PRN PRN (Reason: Anxiety) RF: 0 ondansetron 4 MG tablet 4 mg PO Q8H PRN PRN (Reason: Nausea) Qty: 10 RF: 0 ondansetron 4 MG tablet 4 mg PO Q8H PRN PRN (Reason: Nausea) Qty: 10 RF: 0 Primary Care Provider: Oliver Lyons Referrals: Oliver Lyons MD [Primary Care Provider] - As Needed Disposition Disposition: Home, Self Care
--- NOTE | 2021-07-07 13:42 | CT_ITS ---
STUDY: CTA CHEST REASON FOR EXAM: Female, 51 years old. Acute substernal chest pain, Covid + RADIATION DOSAGE (If Supplied By Facility): CTDIvol = ( 11.35 ) mGy, DLP = ( 473.80 ) mGycm TECHNIQUE: The examination was performed with the intravenous administration of IV 100mL [id number]-370. Post-processing of the angiographic images was performed, with multiplanar reformation and 3D reconstruction. Individualized dose optimization techniques were used for this CT. COMPARISON: None. FINDINGS: Normal enhancement of the main pulmonary artery and right and left pulmonary arteries. Normal enhancement of the bilateral peripheral pulmonary arteries. There is no demonstrated pulmonary embolism. Normal thoracic aorta and visualized great vessels. There is no demonstrated aortic dissection. Normal heart and pericardium. Pacer leads seen along the base of the heart. No calcified coronary vessels noted. Normal mediastinum. Normal hilar regions. Normal visualized trachea and bronchi. The lungs are well expanded. No organizing infiltrate or suspicious groundglass opacifications. There are small bilateral pleural effusions. Normal pleura. Normal chest wall structures. There are degenerative changes of thoracic spine. Limited cuts through the upper abdomen show fatty infiltration of the liver without a discrete lesion. CT/CTA Chest W/WO Contrast IMPRESSION: No demonstrated PE, or thoracic aortic aneurysm or dissection No superimposed infiltrate, groundglass opacifications, or suspicious noncalcified mass or nodule. There are small bilateral pleural effusions No suspicious adenopathy Degenerative bony changes Fatty liver Electronically Signed: Florian Woodruff MD at 15:10 EST , Service support ,
--- NOTE | 2021-07-07 13:42 | EKG12_ITS ---
Test Reason : CP Blood Pressure : / mmHG Vent. Rate : 072 BPM Atrial Rate : 072 BPM P-R Int : 112 ms QRS Dur : 116 ms QT Int : 448 ms P-R-T Axes : 061 147 064 degrees QTc Int : 490 ms Atrial-sensed ventricular-paced rhythm Biventricular pacemaker detected Abnormal ECG Confirmed by AMRIK WRIGHT, TIFFANY ([id number]), make up editor MICKIE HARRIS ([id number]) on 07/08/2021 9:56:24 AM Referred By: PL Confirmed By:TIFFANY ROWLEY MD
[2021-07-07 14:08] LABS: Absolute Lymphocyte Count 2.26 X10^3/uL (0.83-4.51); Absolute Neutrophil Count 3.2 X10^3/uL (2.0-7.7); Basophil# 0.04 X10^3/uL; Basophil% 0.7 % (0-1); Eosinophil# 0.19 X10^3/uL; Eosinophils% 3.1 % (0-5); Hemoglobin 12.6 g/dL (12.0-15.0); Lymphocyte # 2.26 X10^3/ul (0.83-4.51); Mean Corp Hgb Conc 34.1 g/dL (32-36); Mean Corpuscular Hgb 29.4 pg (27.0-32.0); Mean Corpuscular Volume 86.2 fL (81-99); Monocyte# 0.38 X10^3/uL; Monocyte% 6.2 % (0-10); NRBC Flagged by Analyzer 0 % (0-5); Neutrophil # 3.22 X10^3/uL (2.7-7.7); Neutrophil % 52.8 % (47-70); Platelet Count 224 K/mm3 (150-450); RBC Distribution Width CV 13.2 % (11.6-14.6); RBC Distribution Width SD 41.5 fl (35.1-43.9); Red Blood Count 4.29 M/mm3 (4.2-5.4); White Blood Count 6.1 K/mm3 (4.4-11.0)
[2021-07-07] MEDS: Ketorolac 30 MG/ML Syringe IV (14:13)
[2021-07-07 14:26] LABS: ALB/GLOB Ratio 1.1 RATIO (0.9-2.4); AST(SGOT) 31 U/L (15-37); Alanine Aminotransfer ALT/SGPT 43 U/L (13-56); Albumin, Serum 3.4 g/dL (3.2-5.0); Alkaline Phosphatase 98 U/L (45-117); Anion Gap 8 (5-15); BUN 11 mg/dL (7-18); BUN/Creat Ratio 13.4 RATIO (10-20); Calcium,Total 8.1 mg/dL (8.5-10.1); Chloride 103 mmol/L (98-107); Creatinine, Serum 0.82 mg/dL (0.55-1.02); EST Glomerular Filtration Rate 78 mL/min (>60); Est Glom Filt Rate - Afr Amer 95 mL/min (>60); Estimated Creatinine Clearance 70.88 ml/min; Globulin 3.2 g/dL (2.2-4.2); Glucose 86 mg/dL (74-106); Potassium 3.5 mmol/L (3.5-5.1); Protein, Total 6.6 g/dL (6.4-8.2); Sodium Level 140 mmol/L (136-145); Troponin-I HS 4 pg/mL (3.0-54.0)
== END 2021-07-07 15:30 | disposition home or self-care (01) ==
PROVIDERS: Emergency Provider Emergency Medicine; PCP Family Medicine; Visit Provider Emergency Medicine
DX: U07.1 COVID-19 (principal); I50.9 Heart failure, unspecified; Z95.810 Presence of automatic (implantable) cardiac defibrillator; Z79.899 Other long term (current) drug therapy
CPT/HCPCS: 71275; 80053; 84484; 85025; 93005; 96374; 99284; Q9967; A4216

== ENCOUNTER 2021-08-05 07:00 | Outpatient (CLI) | payer OTHER, MEDICAID, SELFPAY | END 2021-08-05 23:59 | disposition home or self-care (01) | PROVIDERS: PCP Family Medicine | DX: R05.3 Chronic cough (principal) ==

== ENCOUNTER 2021-08-15 12:47 | Emergency (ER) | payer OTHER, MEDICAID, SELFPAY ==
[2021-08-15 12:50] VITALS: BP 115/62; PULSE 71; RESP 18; TEMP 36.6; O2SAT 99; BMI 32.8
--- NOTE | 2021-08-15 13:17 | RAD_ITS ---
STUDY: X-RAY - PELVIS AND LEFT HIP REASON FOR EXAM: Female, 51 years old. Pain after a fall TECHNIQUE: 3 views of the pelvis and hip. COMPARISON: None. FINDINGS: There is a non-specific bowel gas pattern. Normal visualized soft tissue structures. Normal bilateral iliac wings, sacroiliac joints and visualized sacrum. Normal bilateral superior and inferior pubic rami. Normal pubic symphysis. Normal bilateral ischial tuberosities. Normal visualized femoral head. Normal acetabulum. Normal hip joint. RAD/HIP, UNI W/ Pelvis 2-3 Views IMPRESSION: Normal x-ray examination of the pelvis and hip. Electronically Signed: Florian Woodruff MD at 14:25 EST ,
--- NOTE | 2021-08-15 13:17 | RAD_ITS ---
STUDY: X-RAY - LEFT KNEE REASON FOR EXAM: Female, 51 years old. Fall, knee pain TECHNIQUE: 4 view(s) of the knee. COMPARISON: None. FINDINGS: Normal visualized distal femur. Normal visualized proximal tibia and fibula. Normal proximal tibiofibular articulation. Normal medial femorotibial compartment. Normal lateral femorotibial compartment. Normal patellofemoral articulation. The soft tissue structures are unremarkable. RAD/Knee 4 or More Views IMPRESSION: Normal x-ray examination of the knee. Electronically Signed: Florian Woodruff MD at 14:26 EST ,
--- NOTE | 2021-08-15 13:18 | EDS_ITS ---
HPI <YOGESH Acuna - Last Filed: 08/15/21 15:11> HPI - Fall History of Present Illness Chief Complaint: Fall Narrative Narrative: 51-year-old female with history of hypertension, chronic pain presents to the emergency department after mechanical fall. 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 Patient denies any LOC, patient members the entire event. Patient has most of her pain in her left hip, left knee. Patient states that she is unable to move her left leg and she is concerned. Patient denies being on any blood thinners, patient states sometimes her blood pressure does drop which cause her to be unsteady. Patient's vital signs are stable here. Denies any fevers chills nausea vomiting. PFSH <YOGESH Acuna - Last Filed: 08/15/21 15:11> [facility] Medical History Congestive heart failure (CHF) ICD (implantable cardioverter-defibrillator) in place Home Medications lisinopril 2.5 mg PO DAILY 10/03/15 [History Last Taken 09/12/15] atenolol [Tenormin] 25 mg PO DAILY 04/26/18 [History Last Taken Unknown] diclofenac sodium 75 mg PO BID PRN PRN 04/26/18 [History Last Taken Unknown] gabapentin 300 mg PO QHS 12/28/18 [History Last Taken Unknown] albuterol sulfate 1 - 2 puff INHALATION Q4H PRN PRN #1 inhaler 05/02/19 [Rx Last Taken Unknown] hydroxyzine HCl 25 mg PO Q6H PRN PRN 05/02/19 [History Last Taken Unknown] venlafaxine 37.5 mg PO DAILY 05/02/19 [History Last Taken Unknown] ondansetron 4 mg PO Q8H PRN PRN #10 tab 01/14/20 [Rx Last Taken Unknown] amoxicillin 500 mg tablet 500 mg PO BID #20 tab 09/14/21 [Rx Last Taken Unknown] prednisone 10 mg tablet 10 mg PO .COMPLEX #30 tab 09/14/21 [Rx Last Taken Unknown] Allergy/AdvReac Type Severity Reaction Status Date / Time naproxen Allergy Hives Verified 08/29/21 08:51 vancomycin Allergy Rash Verified 08/29/21 08:51 carvedilol AdvReac Upset Verified 08/29/21 08:51 Stomach Social History Smoking Status: Never smoker ROS <YOGESH Acuna - Last Filed: 08/15/21 15:11> ROS ED ROS Narrative Constitutional: Negative for fever, chills, weight loss or gain, weakness Eyes: Negative for vision loss, vision change, double vision ENT: Negative for any hearing changes, ringing in the ears, dizziness, discharge, pain Nose: Negative for any congestion, runny nose, sinus pain, allergies Throat: Negative for any sore throat hoarseness, voice changes, Cardiovascular: Negative for any chest pain, tightness, palpitations, racing heartbeat Respiratory: Negative for any coughs, sputum production, coughing, hemoptysis, shortness of breath, shortness of breath on exertion, Gastrointestinal: Negative for any abdominal pain, nausea, vomiting, diarrhea, constipation, blood in stool, blood in vomit : Negative for any urinary frequency, incontinence, dysuria, retention, blood in urine Muscle skeletal: Negative for any muscle joint pain, stiffness, myalgias, arthralgias, neck pain, back pain. Positive for left hip pain, left knee pain Neurological: Negative for any headache, head injury, dizziness, syncope, numbness or tingling Skin: Negative for any rashes, lumps, itching, abrasions, lacerations Psychiatric: Negative for any depression, anxiety, stress, suicidal ideation, homicidal ideation Hematologic: Negative for any easy bruising, excessive bruising, easy bleeding Allergies: Negative for any eczema, hives, rash EXAM <YOGESH Acuna - Last Filed: 08/15/21 15:11> Physical Exam Const Vital Signs: 08/15/21 12:50 08/15/21 12:56 Temperature 97.9 F Temperature Source Temporal Pulse Rate 71 Respiratory Rate 18 Respiratory Effort Normal Blood Pressure 115/62 Blood Pressure Mean 79 Pulse Ox 99 Oxygen Delivery Method Room Air Room Air Positive well nourished and well developed General Appearance ED: well developed HEENT HEENT Narrative: Pupils are equal round reactive to light, negative for any hematoma, septal hematoma. Eyes PERRL Neck full ROM and no lymphadenopathy Chest Wall inspection of chest normal Resp normal respiratory effort and clear to auscultation bilaterally Cardio regular rate and regular rhythm GI non-tender and non-distended Auscultation: normoactive bowel sounds Palpation: soft Back/Spine no CVA tenderness Extremity Extremity Narrative: Patient has discomfort to the lateral hip, patient is unable to flex or extend at this time secondary to pain. Patient's left knee shows no edema, negative for any abrasion. While trying to flex or extend the knee, this does put increased pain on her left hip. Negative for any external rotation. Negative for any deformity. +2 pulse. Negative for any neurological focal deficit. General Extremety ED: Yes tenderness Right Lower Extremity: hip joint Neuro oriented x3 Neuro Narrative: Patient is alert and oriented x4, patient is acting appropriate. Patient remembers the entire event Sensorium / Orientation: alert Skin Lesions: no lesions Rashes: no rashes <Dr. Lauro Gordillo DO - Last Filed: 09/15/21 14:59> Physical Exam Const Vital Signs: 08/15/21 12:50 08/15/21 12:56 Temperature 97.9 F Temperature Source Temporal Pulse Rate 71 Respiratory Rate 18 Respiratory Effort Normal Blood Pressure 115/62 Blood Pressure Mean 79 Pulse Ox 99 Oxygen Delivery Method Room Air Room Air [facility] <YOGESH Acuna - Last Filed: 08/15/21 15:11> [facility] Narrative Medical decision making narrative: Patient appears to be in mild discomfort secondary to left hip pain, left knee pain. Patient presents to the emergency department after having a mechanical fall while at work. Patient arrives via squad, patient's visit examination was limited because the patient would not move her left hip, left knee. Patient did receive a Percocet for pain which did decrease her pain. Patient did receive x-rays of the left hip and left knee, these were all unremarkable for any acute osseous abnormalities. Patient was ambulated in the department, patient felt well and will be discharged. Patient will be off work until 08/18/2021. Patient will follow up with the [facility] or the [facility] provider of your choice. Patient instructed to ice, elevate the knee, and to perform gentle stretching. Patient stable for discharge Lab Data Attestation: I reviewed the patient's lab results. Radiography Diagnostic Testing: Clinical Impression(s) from Imaging Studies Hip/Pelvis X-Ray 08/15/21 13:17 IMPRESSION: Normal x-ray examination of the pelvis and hip. Electronically Signed: Florian Woodruff MD at 14:25 EST , Knee X-Ray 08/15/21 13:17 IMPRESSION: Normal x-ray examination of the knee. Electronically Signed: Florian Woodruff MD at 14:26 EST , <Dr. Lauro Gordillo, DO - Last Filed: 09/15/21 14:59> MDM MDM Narrative Medical decision making narrative: Patient seen and evaluated with nurse practitioner. Agree with assessment and plan. Patient seen and examined individually and history and physical taken. Patient had a fall complaining of hip and knee pain. My interpretation of the hip and knee film shows no acute fracture or subluxation. Patient was medicated and currently comfortable. She is able ambulate. Feel she stable for discharge at this time. Radiography Diagnostic Testing: Clinical Impression(s) from Imaging Studies Hip/Pelvis X-Ray 08/15/21 13:17 IMPRESSION: Normal x-ray examination of the pelvis and hip. Electronically Signed: Florian Woodruff MD at 14:25 EST , Knee X-Ray 08/15/21 13:17 IMPRESSION: Normal x-ray examination of the knee. Electronically Signed: Florian Woodruff MD at 14:26 EST , Discharge Plan Triage Chief Complaint: Fall ED Provider: Jean Shah Dx/Rx/DC Orders Clinical Impression: Fall, Contusion of hip, left, Contusion of knee, Concussion without loss of consciousness, Contusion of knee, left Instructions: Bruises (Contusions), Concussion Dc, ED Contusion, Lower Extremity, ED Hip Contusion, ED Fall Prevention Prescriptions: No Action amoxicillin 500 mg tablet 500 mg PO BID Qty: 20 RF: 0 prednisone 10 mg tablet 10 mg PO .COMPLEX Qty: 30 RF: 0 lisinopril 2.5 MG tablet 2.5 mg PO DAILY RF: 0 atenolol [Tenormin] 25 MG tablet 25 mg PO DAILY RF: 0 diclofenac sodium 75 MG tablet 75 mg PO BID PRN PRN (Reason: Pain) RF: 0 gabapentin 300 MG capsule 300 mg PO QHS RF: 0 albuterol sulfate 1 INHALER inhaler 1 - 2 puff inhalation Q4H PRN PRN (Reason: Wheezing) Qty: 1 RF: 0 venlafaxine 37.5 MG tablet 37.5 mg PO DAILY RF: 0 hydroxyzine HCl 25 MG tablet 25 mg PO Q6H PRN PRN (Reason: Anxiety) RF: 0 ondansetron 4 MG tablet 4 mg PO Q8H PRN PRN (Reason: Nausea) Qty: 10 RF: 0 Stand Alone Forms: ED Work / School 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 With her head injury and headaches use Tylenol every 6 hours as needed. [facility] as given for outpatient evaluation. Disposition Disposition: Home, Self Care Discharge Date/Time: 08/15/21 23:59
[2021-08-15] MEDS: oxyCODONE 5 MG Tablet PO (13:26)
[2021-08-15] MEDS: morphine 10 MG/ML Syringe 6 MG IM (13:39)
== END 2021-08-15 15:26 | disposition home or self-care (01) ==
PROVIDERS: Emergency Provider Nurse Practitioner; PCP Family Medicine; Visit Provider Nurse Practitioner
DX: I11.0 Hypertensive heart disease with heart failure (principal); I50.9 Heart failure, unspecified; S80.00XA Contusion of unspecified knee, initial encounter; W01.0XXA Fall on same level from slipping, tripping and stumbling without subsequent striking against object, initial encounter; S70.02XA Contusion of left hip, initial encounter; Z95.810 Presence of automatic (implantable) cardiac defibrillator
CPT/HCPCS: 73502; 73564; 96372; 99285

== ENCOUNTER 2021-08-19 06:52 | Outpatient (CLI) | payer OTHER, MEDICAID, SELFPAY ==
[2021-08-19] MEDS: Methacholine Chloride 18 ml neb kit INHALATION (07:08)
--- NOTE | 2021-08-19 07:35 | CPS ---
4 out of 6 doses of Methacholine given during testing, including the saline dose. Patient had significant change after 4th dose resulting in termination of testing. Last two doses of Methacholine were disposed of in the Pharmaceutical waste bin.
--- NOTE | 2021-08-19 13:47 | BRONCHALL ---
Bronchoprovocation Challenge Bronchoprovocation Challenge Bronchoprovocation Challenge: INTRODUCTION: The patient is a 51-year-old female that presents for a methacholine challenge secondary to a diagnosis of cough. Respiratory therapy reported good patient effort without any contraindications for testing. INTERPRETATION: Initial spirometry did not show any large airways obstructive ventilatory defect and preserved airflows throughout. The patient was then given progressively increasing doses of methacholine in a standardized fashion. At level 3, the patient did experience a 23% drop in FEV1. The patient's PD20 FEV1 was noted to be 0.045, indicating the presence of moderate AHR. Postbronchodilator recovery was noted. IMPRESSION: Positive methacholine challenge, indicative of moderate airway hyperresponsiveness.
== END 2021-08-19 23:59 | disposition home or self-care (01) ==
LOC: PSN 06:52
PROVIDERS: PCP Family Medicine
DX: R05.3 Chronic cough (principal)
CPT/HCPCS: 94070; 95070

== ENCOUNTER 2021-09-25 16:30 | Outpatient (RCR) | payer OTHER, MEDICAID, SELFPAY ==
--- NOTE | 2021-09-11 17:33 | HP.PTEVAL ---
Patient's Visit Information RAZA MANCUSO is a 51 year old F referred to Physical Therapy by RYAN Adams with a diagnosis of Lumbar Pain. Date of Evaluation: 09/11/21 Physical Therapist: Chanda Liang DPT - Visit Plan Frequency: 3x /Week Duration: 3 Weeks Plan: Aquatic- focus on LE and core strength/stabilization, Gently progression. 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 She landed on her right knee, hip and her back. She had a concussion for 2 weeks- they called the squad. She currently has increased back pain. She has had an x-ray which showed OA. She didnt have pain right away but now its really bad. She was given muscle relaxers. The pain is located in the lumbar spine and radiates down into both hips. She does have radiating pain down her leg to her toes. She has numbness and tingling in her toes. She reports that was after the muscle relaxer so she is unsure if thats what it is. The right leg is worse than the left. 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 Eases: muscle relaxer Best: 0/10 right in the beginning when she gets out of bed. Describes the pain as achy and sharp. She has had pain shooting down the right leg and has taken Gabapentin for years- no testing. Does flare up so bad that she is unable to walk on it. No change in bowel or bladder since the fall. . She has not had any MRI's of her spine. She has had cervical spine surgery to clear out the nerve pathway-unsure of how long ago and [facility] but unsure of the doctor. She does see a heart doctor too. Sleep: disturbed- hard to get comfortable- normally a back and side sleeper. She can't lay on her left side currently. She has falls her balance is not normally good. 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 PMHx/Meds: no changes since she saw the [facility]. - Objective Posture: FH, RS- can correct with verbal cues but does not maintain. Gait: antalgic- no AD- decreased stance on the right LE. ROM: Lumbar Flexion: hands to toes, Extn: neutral with pain SB: diminished by 50% with pain, Rotation: decreased by 75% with pain. Hip: WFL with pain IR bilateral R>L. Knee/Ankle: WNL. HR/TR: able with UE A. Balance: unable to SLS due to fear right>left but does weight shift. Stairs: asc/desc 8 recip with HR. Sensation: WNL to gross touch bilateral. Reflex: Patella WFL bilateral. Strength: Core: fair minus, Hip: Right: 4-/5 throughout with pain, Left: 4/5, Knee: 4+/5 throughout Ankle:5/5. Palpation: tender along paraspinals of the lumbar spine and along the right greater troch. - Special Tests L/S Slump test left side: Positive L/S Slump test right side: Positive L/S Left Straight Leg Raise: Positive L/S Right Straight Leg Raise: Positive R Hip Scour: Positive R Hip EKTA - Intraarticular Pathology: Positive R Hip FADDIR - Labrum: Positive R Hip Celestino - IT Band: Positive L Hip EKTA - Intraarticular Pathology: Positive L Hip FADDIR - Labrum: Positive L Hip Celestino - IT Band: Positive - Balance/Special Test Scores Lower Extremity Functional Score: 34 - Goals Goal 1:: Patient will be I with HEP and progression Goal Time Frame: 4-6 Weeks Goal 2:: Patient will maintain proper posture t/o tx session to demo increased core s/s Goal Time Frame: 4-6 Weeks Goal 3:: Patient will SLS for 15 seconds without LOB Goal Time Frame: 4-6 Weeks Goal 4:: Patient will report 80% improvement Goal Time Frame: 4-6 Weeks - Rehabilitation Potential Physical Therapy Diagnosis: Patient presents with hypomobility- she has decreased painfree lumbar and LE ROM, LE and core strength/stabilization, flex and muscular endurance leading to poor posture and increased pain with ADL's Rehabilitation Potential: Fair - Anticipated Interventions Patient/Client Instruction: Educate patient on: Benefits of Fitness Program Therapeutic Exercise to Include: Strength training, Endurance training, Balance training, Coordination, Agility training, Body mechanics, Postural training, Flexibilty training, Gait and locomotor training, Neuromotor development, In an aquatic setting, Dynamic Lumbar Stabilization, Scapular Strength/Stabilization For the Purpose of:: To improve muscle performance and motor function Thank you for the opportunity to evaluate your patient. For Medicare and Medicare HMO plans, please review the plan of care and approve it. It will need to be FAXED BACK to us at [phone] for Medicare purposes. For Medicare only, by signing this I certify the plan of care. Please let me know if there are questions or concerns regarding this plan of care. Physician Signature: Date:
--- NOTE | 2021-11-26 10:40 | HP.PT.NRP ---
RAZA MANCUSO was seen in my office for initial evaluation on 09/11/21. The following Plan of Care was established for this patient: Initial Frequency: 3x /Week Initial Duration: 3 Weeks Patient/Client Instruction: Educate patient on: Benefits of Fitness Program Therapeutic Exercise to Include: Strength training, Endurance training, Balance training, Coordination, Agility training, Body mechanics, Postural training, Flexibilty training, Gait and locomotor training, Neuromotor development, In an aquatic setting, Dynamic Lumbar Stabilization, Scapular Strength/Stabilization For the Purpose of:: To improve muscle performance and motor function This patient was last seen in our office . Pertinent comments regarding their Physical therapy will appear below: Patient has not attended PT in over 30 days and is appropriate for d/c At this point I will be discontinuing this patient from physical therapy. I would be happy to see this patient again in the future if found appropriate by the physician. Thank you! Chanda Liang, BRIANDAT Balance/Gait/Functional tests - Balance/Special Test Scores Lower Extremity Functional Score: 34
== END 2021-09-25 19:00 | disposition home or self-care (01) ==
LOC: PT 16:30
PROVIDERS: PCP Family Medicine; Referring Provider Physician Assistant Surgical; Visit Provider Physician Assistant Surgical
DX: S30.0XXD Contusion of lower back and pelvis, subsequent encounter (principal); S70.02XD Contusion of left hip, subsequent encounter
CPT/HCPCS: 97113; 97162; 97530

== ENCOUNTER → 2021-10-29 | Outpatient (CLI) | payer OTHER, MEDICAID, SELFPAY ==
--- NOTE | 2021-10-29 12:28 | CT_ITS ---
STUDY: CT LUMBAR SPINE WITH CONTRAST REASON FOR EXAM: Female, 51 years old. Pain -- CT myelogram. Chronic low back pain. RADIATION DOSAGE (If Supplied By Facility): CTDIvol = ( 19.06 ) mGy, DLP = ( 529.93 ) mGycm TECHNIQUE: The patient was scanned in a multi detector CT scanner. High resolution transaxial imaging was performed following the intravenous administration of 0 ISOVUE M200. Images were obtained from L1 to S1 vertebral level. Sagittal and coronal images were reconstructed. Individualized dose optimization techniques were used for this CT. COMPARISON: None FINDINGS: Normal lumbar lordosis. There is no substantial scoliosis. Normal vertebrae of the lumbar spine. L1-2: Mild degree of disc space narrowing. No significant stenosis is seen. L2-3: Marked degree of disc space narrowing and disc degeneration. Minimal retrolisthesis of L2 on L3. Diffuse posterior disc bulge worse on the left side with narrowing of the left intervertebral foramen. Anterior spondylosis. L3-4: Mild degree of disc space narrowing. Mild degree of diffuse posterior disc bulge. No significant stenosis is seen. L4-5: Normal endplates. Normal disc height and morphology. Normal bilateral facet joints. Normal central canal and bilateral lateral recesses. Normal bilateral intervertebral neural foramina. L5-S1: Normal endplates. Normal disc height and morphology. Normal bilateral facet joints. Normal central canal and bilateral lateral recesses. Normal bilateral intervertebral neural foramina. Normal visualized paraspinous soft tissue structures. CT/Spine Lumbar WITH Contrast IMPRESSION: Marked degree of disc space narrowing and disc degeneration with minimal retrolisthesis of L2 on L3. Diffuse posterior disc bulge at the L2-L3 level was on left side with narrowing of the left intervertebral foramen. Anterior spondylosis. Electronically Signed: Abel Lundberg MD at 14:09 EDT ,
--- NOTE | 2021-10-29 12:30 | RAD_ITS ---
PROCEDURE: LUMBAR MYELOGRAM DATE OF EXAMINATION: 10/29/2021 INDICATION: Female, 51 years old. Low back pain. PHYSICIAN: Abel Lundberg M.D. CONSENT: The patient''s history and physical findings were reviewed. The lumbar myelogram procedure was discussed with the patient prior to signing a consent. SEDATION: Local anesthesia with 3 mL of 1% lidocaine was used. FLUOROSCOPY TIME (if supplied): (3:45) minutes/seconds. Number of images obtained: 0 TECHNIQUE: Digital fluoroscopy was used to identify a safe approach for the lumbar myelogram. The back was prepped and draped in usual fashion. Local anesthesia was utilized. Under fluoroscopic guidance a lumbar puncture was attempted. Unsuccessful lumbar puncture due to the patient''s anatomy. RAD/Lumbar Myelogram IMPRESSION: Unsuccessful lumbar puncture due to the patient''s anatomy. Electronically Signed: Abel Lundberg MD at 14:05 EDT ,
[2021-10-29 12:41] VITALS: BP 117/60; PULSE 80; RESP 14; TEMP 37.1; O2SAT 98; BMI 32.5
[2021-10-29] MEDS: Lidocaine 2% (5ml sdv) 5 ML VIAL.MPF INFILT (12:45)
[2021-10-29 13:45] VITALS: BP 125/70; PULSE 77; RESP 16; O2SAT 100
--- NOTE | 2021-10-29 13:46 | NURSING ---
Difficulty injecting contrast under fluoro. CT completed. Patient in holding bay 1. Patient tearful and states pain in lower back is 10/10. Emotional support provided. This RN called patient's per her request.
[2021-10-29 14:45] VITALS: BP 106/39; PULSE 75; RESP 18; O2SAT 100
== END | disposition home or self-care (01) ==
LOC: RAD 12:26
PROVIDERS: PCP Family Medicine; Referring Provider Orthopaedic Surgery; Visit Provider Orthopaedic Surgery
DX: M54.50 Low back pain, unspecified (principal); G89.29 Other chronic pain
CPT/HCPCS: 62304; 72132; Q9965

== ENCOUNTER 2021-10-31 15:16 | Emergency (ER) | payer OTHER, MEDICAID, SELFPAY ==
[2021-10-31 15:18] VITALS: BP 124/80; PULSE 104; RESP 14; TEMP 36.6; O2SAT 97; BMI 34.3
--- NOTE | 2021-10-31 16:32 | EDS_ITS ---
HPI History of Present Illness Chief Complaint: Back Informant: patient Onset/Context/Timing Onset: Days (2) Chronic pain exacerbated by: CT and CT myelogram Timing: Continuous Quality: Aching Location: Lumbar, Buttock, Right Leg and Left Leg Current Severity: Severe Maximum Severity: Severe Worsened by: improves with Movement Relieved by: Nothing Associated Symptoms Associated Symptoms: Radiation to Right Leg and Radiation to Left Leg; Negative for Abdominal Pain, Dysuria, Urinary Retention, Urinary Incontinence, Constipation and Fecal Incontinence Narrative Narrative: Patient with a history of back issues and sciatica symptoms on both sides worse on the left that preexisted before studies that she had 2 days ago which included a CT with IV contrast and an attempted CT myelogram that was unsuccessful due to the patient's back anatomy under fluoroscopy. She states there was not one-point during all of that at which she knew this was the etiology of worsening, but she knows that when she arrived for the studies her pain was 5/10 and when she left it was 10/10. It has persisted and when she called her back specialist he advised to come to the ER for pain control. She was taken to muscle relaxer at home that she was prescribed but she is currently out of it. She denies any new bowel or bladder dysfunction or any new symptoms compared with 2 days ago, they are all pre-existing symptoms that are worse. [facility] Medical History Congestive heart failure (CHF) ICD (implantable cardioverter-defibrillator) in place Home Medications lisinopril 2.5 mg PO DAILY 10/03/15 [History Last Taken 09/12/15] atenolol [Tenormin] 25 mg PO DAILY 04/26/18 [History Last Taken Unknown] diclofenac sodium 75 mg PO BID PRN PRN 04/26/18 [History Last Taken Unknown] gabapentin 300 mg PO QHS 12/28/18 [History Last Taken Unknown] albuterol sulfate 1 - 2 puff INHALATION Q4H PRN PRN #1 inhaler 05/02/19 [Rx Last Taken Unknown] hydroxyzine HCl 25 mg PO Q6H PRN PRN 05/02/19 [History Last Taken Unknown] venlafaxine 37.5 mg PO DAILY 05/02/19 [History Last Taken Unknown] fluticasone propion-salmeterol [Advair HFA] 2 puff INHALATION BID 10/29/21 [History Last Taken Unknown] linaclotide [Linzess] 290 mcg PO DAILY 10/29/21 [History Last Taken Unknown] omeprazole 40 mg PO BID 10/29/21 [History Last Taken Unknown] Allergy/AdvReac Type Severity Reaction Status Date / Time naproxen Allergy Hives Verified 10/31/21 15:17 vancomycin Allergy Rash Verified 10/31/21 15:17 carvedilol AdvReac Upset Verified 10/31/21 15:17 Stomach Surgical History History of ankle surgery History of appendectomy History of cholecystectomy History of neck surgery Social History Smoking Status: Never smoker alcohol intake: never substance use type: does not use ROS ROS ED Constitutional Constitutional ED: Denies chills or fever(s) Gastrointestinal Gastrointestinal: Denies abdominal pain, constipation, fecal incontinence, nausea or vomiting Genitourinary Genitourinary ED: Reports other Details: no urinary retention ; Denies abdominal discomfort or urinary incontinence Musculoskeletal Musculoskeletal: Reports as per HPI and back pain; Denies neck pain Integumentary Denies rash or wounds Neurologic Neurologic: Denies headache(s), paresthesias or weakness EXAM Physical Exam Const Vital Signs: 10/31/21 15:18 Temperature 97.8 F Temperature Source Temporal Pulse Rate 104 H Respiratory Rate 14 Blood Pressure 124/80 H Blood Pressure Mean 94 Pulse Ox 97 Oxygen Delivery Method Room Air Positive well nourished and well developed General Appearance ED: well developed and NAD HEENT Negative for trauma or tenderness Eyes PERRL and EOMs intact bilaterally Neck full ROM and supple GI normal to inspection, nondistended, normoactive bowel sounds, soft to palpation and non-tender Back/Spine normal to inspection Back/Spine Narrative: Lumbar puncture site benign, nontender, no signs of drainage or infection Lumbar Spine / Lower Back: ROM limited, lumbar spinal tenderness, paraspinal muscle tenderness bilateral (With spasm, and into buttocks) and straight leg ra ise negative bilaterally Extremity normal to inspection, full ROM and no pedal edema Neuro oriented x3 and no sensory deficits noted Sensorium / Orientation: alert Motor Exam: strength 5/5 throughout and clonus absent Deep Tendon Reflexes: Rt Patellar (L4): 2+, Lt Patellar (L4): 2+, Rt Ankle (S1): 2+ and Lt Ankle (S1): 2+ Deep Tendon Reflexes Back: Rt Patellar (L4): 2+, Lt Patellar (L4): 2+, Rt Ankle (S1): 2+ and Lt Ankle (S1): 2+ Plantar Reflex: Downgoing: bilateral Psych mental status grossly normal and thought process normal Skin no rashes or lesions noted and no wounds MDM MDM MDM Narrative Medical decision making narrative: Patient was treated with morphine 10 mg in addition to prophylactic Zofran and a dose of Norflex. She has a ride home. She did have some improvement and was discharged to follow-up with her surgeon. I did review her CT scan, she does have significant lumbar pathology but nothing acutely surgical nor does she clinically have cauda equina syndrome. Discharge Plan Triage Chief Complaint: Back ED Provider: Gonzalo Garrido Dx/Rx/DC Orders Clinical Impression: Acute exacerbation of chronic low back pain, Bilateral sciatica Instructions: ED Back Pain (Acute or Chronic) Prescriptions: No Action lisinopril 2.5 MG tablet 2.5 mg PO DAILY RF: 0 atenolol [Tenormin] 25 MG tablet 25 mg PO DAILY RF: 0 diclofenac sodium 75 MG tablet 75 mg PO BID PRN PRN (Reason: Pain) RF: 0 gabapentin 300 MG capsule 300 mg PO QHS RF: 0 albuterol sulfate 1 INHALER inhaler 1 - 2 puff inhalation Q4H PRN PRN (Reason: Wheezing) Qty: 1 RF: 0 venlafaxine 37.5 MG tablet 37.5 mg PO DAILY RF: 0 hydroxyzine HCl 25 MG tablet 25 mg PO Q6H PRN PRN (Reason: Anxiety) RF: 0 omeprazole 40 mg Capsule,Delayed Release(Dr/Ec) 40 mg PO BID RF: 0 Advair HFA 115-21 mcg/actuation Hfa Aerosol Inhaler 2 puff INHALATION BID RF: 0 Linzess 290 mcg Capsule 290 mcg PO DAILY RF: 0 Primary Care Provider: Oliver Lyons Referrals: Oliver Lyons MD [Primary Care Provider] - Felix Kendall DO [STAFF PHYSICIAN] - Keep Conrad appointment Disposition Disposition: Home, Self Care
[2021-10-31] MEDS: morphine 10 MG/ML Syringe IM (17:04)
[2021-10-31] MEDS: Orphenadrine 60 MG/2 ML Ampul IM (17:04)
[2021-10-31] MEDS: Ondansetron ODT 4 MG Tablet 8 MG PO (17:04)
== END 2021-10-31 17:37 | disposition home or self-care (01) ==
LOC: ED 17:07
PROVIDERS: Emergency Provider Emergency Medicine; PCP Family Medicine; Visit Provider Emergency Medicine
DX: M54.42 Lumbago with sciatica, left side (principal); I50.9 Heart failure, unspecified; G89.29 Other chronic pain; M54.41 Lumbago with sciatica, right side; Z95.810 Presence of automatic (implantable) cardiac defibrillator
CPT/HCPCS: 96372; 99282

== ENCOUNTER → 2022-01-05 | Outpatient (CLI) | payer OTHER, SELFPAY ==
--- NOTE | 2022-01-05 12:15 | CT_ITS ---
STUDY: CT LUMBAR SPINE WITH INTRATHECAL CONTRAST (LUMBAR CT MYELOGRAM) REASON FOR EXAM: Female, 51 years old. SPRAIN OF LIGAMENTS OF LUMBAR SPINE, INITIAL ENCOUNTER RADIATION DOSAGE (If Supplied By Facility): CTDIvol = ( 24.70 ) mGy, DLP = ( 940.15 ) mGycm TECHNIQUE: Transaxial images were obtained from the T12 vertebra through the S1 vertebra, following intrathecal administration of 15 ml of ISOVUE-M 200 contrast material, performed by Dr. WILSON. Please refer to this physicians technical notes for procedural details. Coronal and sagittal reconstructions were obtained. Individualized dose optimization techniques were used for this CT. COMPARISON: Comparison is made with prior myelogram done earlier in the day. FINDINGS: Normal lumbar lordosis. There is no substantial scoliosis. Normal vertebrae of the lumbar spine. There is dependent layering of contrast material in the distal thecal sac. The conus medullaris terminates in a normal position at the T12-L1 level. There is no demonstrated cauda equina nerve root abnormality or intraspinal mass. L1-2: Mild degree of disc space narrowing at the L1-L2 level. Mild degree of central posterior disc bulge. No significant stenosis is seen. L2-3: Moderate degree of disc space narrowing within the anterior spondylosis. There is evidence of a small anterior extradural defect. There is evidence of a disc herniation within the left intervertebral foramen which causes narrowing of the left intervertebral foramen and compromise of the exiting nerve root. Minimal retrolisthesis of L2 on L3. L3-4: Normal endplates. Normal disc height and morphology. Normal bilateral facet joints. Normal central canal and bilateral lateral recesses. Normal bilateral intervertebral neural foramina. L4-5: Left lateral disc herniation causing narrowing of the left intervertebral foramen and compromise of the exiting nerve root. L5-S1: Normal endplates. Normal disc height and morphology. Normal bilateral facet joints. Normal central canal and bilateral lateral recesses. Normal bilateral intervertebral neural foramina. Normal visualized sacroiliac joints. Normal visualized paraspinous soft tissue structures. CT/Spine Lumbar WITH Contrast IMPRESSION: Left lateral disc herniation at the L2-L3 level as well as at the L4-L5 level as described. Electronically Signed: Abel Wilson MD at 14:21 EDT ,
--- NOTE | 2022-01-05 12:15 | RAD_ITS ---
PROCEDURE: LUMBAR MYELOGRAM DATE OF EXAMINATION: 01/05/2022. INDICATION: Female, 51 years old. Low back pain. PHYSICIAN: Abel Lundberg M.D. CONSENT: The patient''s history and physical findings were reviewed. The lumbar myelogram procedure was discussed with the patient prior to signing a consent. SEDATION: Local anesthesia with 3 mL of 1% lidocaine was used. FLUOROSCOPY TIME (if supplied): (1:30) minutes/seconds. Injection Information: 15 cc of the ISOVUE-M 200. Number of images obtained: 4 TECHNIQUE: Digital fluoroscopy was used to identify a safe approach for the lumbar myelogram. The back was prepped and draped in usual fashion. Local anesthesia was utilized. Under fluoroscopic guidance a 22-gauge spinal needle was inserted into the spinal canal at the L3-L4 level. . Clear spinal fluid was seen. 15 mL of Isovue 200 M was injected into the spinal canal. There is good opacification of the spinal fluid. The nerve root sheaths are asymmetrically identified. There is no extradural defects. Multilevel disc space narrowing. RAD/Lumbar Myelogram IMPRESSION: Normal lumbar myelogram. Electronically Signed: Abel Lundberg MD at 14:17 EDT ,
[2022-01-05 12:24] VITALS: BP 128/71; PULSE 72; RESP 18; TEMP 35.7; O2SAT 99; BMI 33.7
[2022-01-05] MEDS: Lidocaine 2% (5ml sdv) 5 ML VIAL.MPF INFILT (12:43)
[2022-01-05 13:05] VITALS: BP 136/60; PULSE 88; RESP 18; TEMP 36; O2SAT 99
[2022-01-05 14:15] VITALS: BP 112/60; PULSE 69; RESP 20; O2SAT 100
== END | disposition home or self-care (01) ==
LOC: RAD 12:08
PROVIDERS: PCP Family Medicine; Visit Provider Orthopaedic Surgery
DX: S33.5XXA Sprain of ligaments of lumbar spine, initial encounter (principal)
CPT/HCPCS: 62304; 72132; Q9965

== ENCOUNTER 2022-01-06 14:57 | Emergency (ER) | payer OTHER, MEDICAID, SELFPAY ==
[2022-01-06 14:58] VITALS: BP 114/96; PULSE 83; RESP 16; TEMP 36.6; O2SAT 98; BMI 33.7
--- NOTE | 2022-01-06 15:35 | ED.VIS.BACK ---
HPI History of Present Illness Chief Complaint: Back Informant: patient Narrative Narrative: 51-year-old female states that she has had chronic back pain since August. She states that this is a Workmen's Comp. case from a fall that occurred. 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 doctor and recently started seeing Dr. Serrato with [facility]. She reports that yesterday she had a CT myelogram that demonstrated 2 herniated disc. Since that procedure she states she has been in worse pain. She states that nobody will prescribe her pain medication. I see that she is on gabapentin. She states that Dr. Serrato was not in the office and she needs pain control. She notes radiculopathy to the left lower extremity. She denies any bowel or bladder dysfunction. She denies any loss of sensation or muscle strength. [facility] Medical History Back injury Congestive heart failure (CHF) ICD (implantable cardioverter-defibrillator) in place Home Medications lisinopril 2.5 mg tablet 2.5 mg PO DAILY 10/03/15 [History Last Taken 09/12/15] atenolol 25 mg tablet (Tenormin) 25 mg PO DAILY 04/26/18 [History Last Taken Unknown] diclofenac sodium 75 mg tablet,delayed release 75 mg PO BID PRN PRN Pain 04/26/18 [History Last Taken Unknown] gabapentin 300 mg capsule 300 mg PO QHS 12/28/18 [History Last Taken Unknown] albuterol sulfate 90 mcg/actuation aerosol inhaler 1 - 2 puff inhalation Q4H PRN PRN Wheezing ##1 05/02/19 [Rx Last Taken Unknown] hydroxyzine HCl 25 mg tablet 25 mg PO Q6H PRN PRN Anxiety 05/02/19 [History Last Taken Unknown] venlafaxine 37.5 mg tablet 37.5 mg PO DAILY 05/02/19 [History Last Taken Unknown] fluticasone propionate 115 mcg-salmeterol 21 mcg/actuation HFA inhaler (Advair HFA) 2 puff inhalation BID 10/29/21 [History Last Taken Unknown] linaclotide 290 mcg capsule (Linzess) 290 mcg PO DAILY 10/29/21 [History Last Taken Unknown] omeprazole 40 mg capsule,delayed release 40 mg PO BID 10/29/21 [History Last Taken Unknown] hydrocodone-acetaminophen 5-325mg 5mg-325mg 1 tab PO Q6H PRN PRN Pain 3 days #12 TABLETS 01/06/22 [Rx Last Taken Unknown] Allergy/AdvReac Type Severity Reaction Status Date / Time naproxen Allergy Hives Verified 01/06/22 15:02 vancomycin Allergy Rash Verified 01/06/22 15:02 carvedilol AdvReac Upset Verified 01/06/22 15:02 Stomach Surgical History History of ankle surgery History of appendectomy History of cholecystectomy History of neck surgery Social History Smoking Status: Never smoker alcohol intake: never substance use type: does not use ROS ROS ED Constitutional Constitutional ED: Denies chills or weight loss Eyes Eyes: Denies change in vision or diplopia ENT ENT ED: Denies ear pain, rhinorrhea or sore throat Cardiovascular Cardiovascular: Denies chest pain, orthopnea, palpitations or racing heartbeat Respiratory/Chest Respiratory/Chest: Denies cough, dyspnea or orthopnea Gastrointestinal Gastrointestinal: Denies abdominal pain, diarrhea, nausea or vomiting Genitourinary Genitourinary ED: Denies dysuria, hematuria or urinary frequency Musculoskeletal Musculoskeletal: Reports back pain; Denies arthralgias or myalgias Integumentary Denies abscess or rash Neurologic Neurologic: Denies headache(s), paresthesias or weakness Psychiatric Psychiatric: Denies anxiety, depression, suicidal ideation or suicidal thoughts Endocrine Endocrinology: Denies polydipsia, polyphagia or polyuria Allergic/Immunologic Allergic/Immunologic ED: Denies mouth swelling, tongue swelling or urticaria EXAM Physical Exam Const Vital Signs: 01/06/22 14:58 Temperature 97.8 F Temperature Source Temporal Pulse Rate 83 Respiratory Rate 16 Blood Pressure 114/96 H Blood Pressure Mean 102 Pulse Ox 98 Oxygen Delivery Method Room Air Positive well nourished and well developed General Appearance ED: well developed HEENT Reports normocephalic, head/scalp atraumatic and moist mucous membranes Eyes PERRL and EOMs intact bilaterally Neck no lymphadenopathy, supple and no JVD Resp normal respiratory effort and clear to auscultation bilaterally Cardio regular rate, regular rhythm and no murmurs GI normal to inspection, nondistended, normoactive bowel sounds and non-tender Palpation: soft Back/Spine no CVA tenderness Back/Spine Narrative: The injection site of the back appears without complication. There is tenderness to palpation. Extremity normal to inspection General Extremety ED: Negative for edema General Extremity: Negative for edema Neuro oriented x3, CN's II-XII intact bilaterally and no sensory deficits noted Neuro Narrative: No saddle anesthesia. Sensorium / Orientation: alert Motor Exam: strength 5/5 throughout Deep Tendon Reflexes: Rt Patellar (L4): 2+ and Lt Patellar (L4): 2+ Deep Tendon Reflexes Back: Rt Patellar (L4): 2+ and Lt Patellar (L4): 2+ Psych mental status grossly normal Mood & Affect: Negative for depressed or tearful Skin no rashes or lesions noted and no wounds MDM MDM MDM Narrative Medical decision making narrative: Patient was advised this is a chronic problem and pain management should be through her doctors. I did review her [facility] report. I will give her a shot of morphine and a short 3-day course of [place]. Further prescription should come from her doctors. Discharge Plan Triage Chief Complaint: Back ED Provider: Shan Forde Dx/Rx/DC Orders Clinical Impression: Acute exacerbation of chronic low back pain, Lumbar radiculopathy, Lumbar disc herniation Instructions: ED Herniated Intervertebral Disk Prescriptions: New hydrocodone-acetaminophen [hydrocodone-acetaminophen] 5-325 mg tablet 1 tab PO Q6H PRN PRN (Reason: Pain) 3 Days Qty: 12 0RF No Action lisinopril 2.5 MG tablet 2.5 mg PO DAILY Label Comments: HEART atenolol [Tenormin] 25 MG tablet 25 mg PO DAILY diclofenac sodium 75 MG tablet 75 mg PO BID PRN PRN (Reason: Pain) gabapentin 300 MG capsule 300 mg PO QHS Label Comments: TAKE 1 CAPSULE BY MOUTH AT BEDTIME albuterol sulfate 1 INHALER inhaler 1 - 2 puff inhalation Q4H PRN PRN (Reason: Wheezing) Qty: 1 0RF venlafaxine 37.5 MG tablet 37.5 mg PO DAILY hydroxyzine HCl 25 MG tablet 25 mg PO Q6H PRN PRN (Reason: Anxiety) Label Comments: TAKE 1 TABLET BY MOUTH EVERY 6 HOURS NEEDED FOR ANXIETY omeprazole 40 mg Capsule,Delayed Release(Dr/Ec) 40 mg PO BID Advair HFA 115-21 mcg/actuation Hfa Aerosol Inhaler 2 puff INHALATION BID Linzess 290 mcg Capsule 290 mcg PO DAILY Primary Care Provider: Oliver Lyons Referrals: Bang Serrato DO [Med Staff - Active Staff] - As soon as possible Oliver Lyons MD [Primary Care Provider] - Disposition Disposition: Home, Self Care
[2022-01-06] MEDS: morphine 10 MG/ML Syringe IM (16:03)
== END 2022-01-06 16:20 | disposition home or self-care (01) ==
LOC: ED 16:04
PROVIDERS: Emergency Provider Emergency Medicine; PCP Family Medicine; Visit Provider Emergency Medicine
DX: M54.50 Low back pain, unspecified (principal); I50.9 Heart failure, unspecified; M51.16 Intervertebral disc disorders with radiculopathy, lumbar region; Z95.810 Presence of automatic (implantable) cardiac defibrillator; G89.29 Other chronic pain
CPT/HCPCS: 96372; 99282

== ENCOUNTER 2022-03-08 21:40 | Emergency (ER) | payer OTHER, MEDICAID, SELFPAY ==
[2022-03-08 21:41] VITALS: BP 140/85; PULSE 84; RESP 18; TEMP 36.6; O2SAT 98; BMI 34.5
[2022-03-08 21:43] VITALS: BP 140/85; PULSE 84; RESP 16; TEMP 36.6; O2SAT 98
--- NOTE | 2022-03-08 22:34 | ED.VIS.BACK ---
HPI History of Present Illness Chief Complaint: Back Narrative Narrative: 52-year-old female with chronic back pain. She states she had an on-the-job injury where she hurt her back and [facility]. She was initially on muscle relaxers and referred to orthopedics and saw Dr. Serrato. Dr. Serrato did have a CT myelogram performed but the patient states that this was not diagnostic enough to determine whether she needs surgery. She was then referred to a neurologist in [place] through [employer] and the patient states that he told her he would file his report and gave her no information on any possibilities or outcomes. She takes gabapentin chronically for her neck pain. Intermittently she has received [place] for pain when she has flareups. She states she has not seen her primary care physician because [employer] will not cover it and nobody will touch me because it is a [employer] problem. She states she did get referred to pain management and saw Dr. Piper who did do an injection of her lower back and she states this did not work. She reports that when she spoke with him again about the fact that it did not help her he did not offer her any options and referred her back to Dr. Serrato. Patient states that the issue is that it is [employer] and that she cannot have an MRI because she has a cardiac pacemaker. Patient denies any new trauma. She describes pain in the left side of her lower back and it radiates into the gluteal region and left lower leg. This is not atypical in its location. She denies loss of bladder or bowel control. She denies saddle anesthesia. She states is difficult to walk due to the pain. She states that Tylenol and ibuprofen just do not help. She reports that steroids have helped her in the past and still have muscle relaxers but she cannot remember the name of any muscle relaxer that she had. [facility] Medical History Back injury Congestive heart failure (CHF) ICD (implantable cardioverter-defibrillator) in place Home Medications lisinopril 2.5 mg tablet 2.5 mg PO DAILY 10/03/15 [History Last Taken 09/12/15] atenolol 25 mg tablet (Tenormin) 25 mg PO DAILY 04/26/18 [History Last Taken Unknown] diclofenac sodium 75 mg tablet,delayed release 75 mg PO BID PRN PRN Pain 04/26/18 [History Last Taken Unknown] gabapentin 300 mg capsule 300 mg PO QHS 12/28/18 [History Last Taken Unknown] albuterol sulfate 90 mcg/actuation aerosol inhaler 1 - 2 puff inhalation Q4H PRN PRN Wheezing ##1 05/02/19 [Rx Last Taken Unknown] hydroxyzine HCl 25 mg tablet 25 mg PO Q6H PRN PRN Anxiety 05/02/19 [History Last Taken Unknown] venlafaxine 37.5 mg tablet 37.5 mg PO DAILY 05/02/19 [History Last Taken Unknown] fluticasone propionate 115 mcg-salmeterol 21 mcg/actuation HFA inhaler (Advair HFA) 2 puff inhalation BID 10/29/21 [History Last Taken Unknown] linaclotide 290 mcg capsule (Linzess) 290 mcg PO DAILY 10/29/21 [History Last Taken Unknown] omeprazole 40 mg capsule,delayed release 40 mg PO BID 10/29/21 [History Last Taken Unknown] hydrocodone-acetaminophen 5-325mg 5mg-325mg 1 tab PO Q6H PRN PRN Pain 3 days #12 TABLETS 01/06/22 [Rx Last Taken Unknown] Allergy/AdvReac Type Severity Reaction Status Date / Time naproxen Allergy Hives Verified 01/06/22 15:02 vancomycin Allergy Rash Verified 01/06/22 15:02 carvedilol AdvReac Upset Verified 01/06/22 15:02 Stomach Surgical History History of ankle surgery History of appendectomy History of cholecystectomy History of neck surgery Social History Smoking Status: Never smoker alcohol intake: never substance use type: does not use ROS ROS ED Constitutional Constitutional ED: Denies chills or fever(s) Eyes Eyes: Denies change in vision ENT ENT ED: Denies rhinorrhea or sore throat Cardiovascular Cardiovascular: Denies chest pain or palpitations Respiratory/Chest Respiratory/Chest: Denies dyspnea or dyspnea on exertion Gastrointestinal Gastrointestinal: Denies abdominal pain or constipation Genitourinary Genitourinary ED: Denies dysuria or hematuria Musculoskeletal Musculoskeletal: Reports back pain and other Details: Left-sided back pain with radicular symptoms down the left leg ; Denies arthralgias Integumentary Denies abscess or Abrasions Neurologic Neurologic: Denies headache(s) Psychiatric Psychiatric: Denies anxiety or depression EXAM Physical Exam Const Vital Signs: 03/08/22 21:41 03/08/22 21:43 Temperature 97.8 F 97.8 F Temperature Source Temporal Temporal Pulse Rate 84 84 Respiratory Rate 18 16 Blood Pressure 140/85 H 140/85 H Blood Pressure Mean 103 103 Pulse Ox 98 98 Oxygen Delivery Method Room Air Room Air Positive well nourished General Appearance ED: NAD HEENT Reports moist mucous membranes and dry mucous membranes Mouth ED: Yes dry mucous membranes Mouth: dry mucous membranes Eyes PERRL and EOMs intact bilaterally Resp normal respiratory effort and clear to auscultation bilaterally Cardio regular rate and regular rhythm Back/Spine Back/Spine Narrative: Patient is exquisitely tender to palpation in the left lumbar region extending into the left gluteal and left posterior thigh and hamstring. She jumps off the bed to just light touch of her skin. She will not let me palpate any deeper. There is no sign of infection, cellulitis. There is no bruising. I do not see any edema. Neuro oriented x3 Psych mental status grossly normal Skin no rashes or lesions noted MDM MDM MDM Narrative Medical decision making narrative: I had a long discussion with the patient about her exacerbation of chronic pain. 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 that can see her for her ongoing pain. I counseled her because this is a chronic issue I do not feel comfortable prescribing her narcotic pain medication. I did offer her an IM dose of morphine 6 mg, Norflex in the ER. She was given a dose of Zofran as this is helped her in the past. It looks like from [employer] that she was on Flexeril before so I will give her a prescription for this. Since she states that steroids have helped in the past I will put her on prednisone as well. She does not have any signs or symptoms of cauda equina syndrome. No symptoms of an infectious etiology. This appears to be a exacerbation of her chronic pain. Impression: 1. Acute exacerbation of chronic back pain. Lab Data Attestation: I reviewed the patient's lab results. Discharge Plan Triage Chief Complaint: Back ED Provider: Lauro Gordillo Dx/Rx/DC Orders Prescriptions: No Action lisinopril 2.5 MG tablet 2.5 mg PO DAILY Label Comments: HEART atenolol [Tenormin] 25 MG tablet 25 mg PO DAILY diclofenac sodium 75 MG tablet 75 mg PO BID PRN PRN (Reason: Pain) gabapentin 300 MG capsule 300 mg PO QHS Label Comments: TAKE 1 CAPSULE BY MOUTH AT BEDTIME albuterol sulfate 1 INHALER inhaler 1 - 2 puff inhalation Q4H PRN PRN (Reason: Wheezing) Qty: 1 0RF venlafaxine 37.5 MG tablet 37.5 mg PO DAILY hydroxyzine HCl 25 MG tablet 25 mg PO Q6H PRN PRN (Reason: Anxiety) Label Comments: TAKE 1 TABLET BY MOUTH EVERY 6 HOURS NEEDED FOR ANXIETY omeprazole 40 mg Capsule,Delayed Release(Dr/Ec) 40 mg PO BID Advair HFA 115-21 mcg/actuation Hfa Aerosol Inhaler 2 puff INHALATION BID Linzess 290 mcg Capsule 290 mcg PO DAILY hydrocodone-acetaminophen [hydrocodone-acetaminophen] 5-325 mg tablet 1 tab PO Q6H PRN PRN (Reason: Pain) 3 Days Qty: 12 0RF Primary Care Provider: Oliver Lyons Referrals: Oliver Lyons MD [Primary Care Provider] -
[2022-03-08] MEDS: Orphenadrine 60 MG/2 ML Ampul IM (22:40)
[2022-03-08] MEDS: Ondansetron ODT 4 MG Tablet PO (22:40)
[2022-03-08] MEDS: morphine 10 MG/ML Syringe 6 MG IM (22:40)
== END 2022-03-08 23:06 | disposition home or self-care (01) ==
PROVIDERS: Emergency Provider Student in an Organized Health Care Education/Training Program; PCP Family Medicine; Visit Provider Student in an Organized Health Care Education/Training Program
DX: M54.9 Dorsalgia, unspecified (principal); G89.29 Other chronic pain; Z95.0 Presence of cardiac pacemaker; Z95.810 Presence of automatic (implantable) cardiac defibrillator
CPT/HCPCS: 96372; 99281; 99282

== ENCOUNTER 2022-04-23 18:56 | Emergency (ER) | payer OTHER, MEDICAID, SELFPAY ==
[2022-04-23 18:58] VITALS: BP 118/70; PULSE 87; RESP 14; TEMP 36.4; O2SAT 99; BMI 34.3
--- NOTE | 2022-04-23 19:18 | EX.ED.VIS.UR ---
HPI HPI - URI History of Present Illness Chief Complaint: Cold Sx Informant: patient Onset/Context/Timing Onset: Weeks (2) Context: Gradual Onset Timing: Continuous Quality: discomfort, burning Location: mid-chest w/ coughing Current Severity: Moderate Maximum Severity: Moderate Worsened by: - (coughing) Relieved by: - (albuterol MDI) Associated Symptoms Associated Symptoms: Positive for Nasal Congestion, Headache, Myalgias, Nausea (at times), Shortness of Breath (wheezing), Chest Pain and Nonproductive cough; Negative for Vomiting or Hemoptysis Narrative Narrative: Patient has been ill with upper respiratory tract symptoms for the past 2 weeks. She presents with daughter who is also being seen, who has been sick for similar period of time with upper respiratory symptoms. Patient has had no fevers or chills. She has asthma, she states she has required her albuterol rescue inhaler 4 times a day on average for the wheezing but she is having different discomfort in her chest that is retro--sternal when she coughs. She has had significant hoarseness of voice. She did a COVID test a week ago and it was negative. She is vaccinated against COVID. Has a history of congestive heart failure denies any specific orthopnea right now or unusual swelling in her legs, she states it comes and goes but is doing pretty well. ROS [facility] ED Constitutional Constitutional ED: Denies chills or fever(s) ENT ENT ED: Reports hoarseness, nasal congestion and rhinorrhea; Denies ear pain, loss taste/smell or sore throat Cardiovascular Cardiovascular: Reports chest pain; Denies orthopnea or palpitations Respiratory/Chest Respiratory/Chest: Reports cough, dyspnea and wheezing; Denies orthopnea Gastrointestinal Gastrointestinal: Reports nausea; Denies abdominal pain, diarrhea or vomiting Genitourinary Genitourinary ED: Denies dysuria or hematuria Musculoskeletal Musculoskeletal: Denies myalgias or neck pain Integumentary Denies abscess or rash Neurologic Neurologic: Denies headache(s), paresthesias or weakness Psychiatric Psychiatric: Denies depression or suicidal thoughts Endocrine Endocrinology: Denies polydipsia or polyuria [facility] Medical History Back injury Congestive heart failure (CHF) ICD (implantable cardioverter-defibrillator) in place Home Medications lisinopril 2.5 mg tablet 2.5 mg PO DAILY 10/03/15 [History Last Taken 09/12/15] atenolol 25 mg tablet (Tenormin) 25 mg PO DAILY 04/26/18 [History Last Taken Unknown] diclofenac sodium 75 mg tablet,delayed release 75 mg PO BID PRN PRN Pain 04/26/18 [History Last Taken Unknown] gabapentin 300 mg capsule 300 mg PO QHS 12/28/18 [History Last Taken Unknown] albuterol sulfate 90 mcg/actuation aerosol inhaler 1 - 2 puff inhalation Q4H PRN PRN Wheezing ##1 05/02/19 [Rx Last Taken Unknown] hydroxyzine HCl 25 mg tablet 25 mg PO Q6H PRN PRN Anxiety 05/02/19 [History Last Taken Unknown] venlafaxine 37.5 mg tablet 37.5 mg PO DAILY 05/02/19 [History Last Taken Unknown] fluticasone propionate 115 mcg-salmeterol 21 mcg/actuation HFA inhaler (Advair HFA) 2 puff inhalation BID 10/29/21 [History Last Taken Unknown] linaclotide 290 mcg capsule (Linzess) 290 mcg PO DAILY 10/29/21 [History Last Taken Unknown] omeprazole 40 mg capsule,delayed release 40 mg PO BID 10/29/21 [History Last Taken Unknown] cyclobenzaprine 10 mg tablet 10 mg PO TID PRN muscle spasm #20 tabs 03/08/22 [Rx Last Taken Unknown] prednisone 20 mg tablet 40 mg PO DAILY #12 TABLETS 04/23/22 [Rx Last Taken Unknown] Allergy/AdvReac Type Severity Reaction Status Date / Time naproxen Allergy Hives Verified 04/23/22 19:01 vancomycin Allergy Rash Verified 04/23/22 19:01 carvedilol AdvReac Upset Verified 04/23/22 19:01 Stomach Surgical History History of ankle surgery History of appendectomy History of cholecystectomy History of neck surgery Social History Smoking Status: Never smoker alcohol intake: never substance use type: does not use EXAM Physical Exam Const Vital Signs: 04/23/22 18:58 04/23/22 19:06 04/23/22 19:32 Temperature 97.6 F L Temperature Source Temporal Pulse Rate 87 87 Respiratory Rate 14 14 Respiratory Effort Short of Breath Respiratory Pattern Tachypnea Blood Pressure 118/70 Blood Pressure Mean 86 Pulse Ox 99 Oxygen Delivery Method Room Air Positive well nourished and well developed General Appearance ED: well developed and NAD HEENT Reports moist mucous membranes HEENT Narrative: TMs normal bilaterally. normocephalic and atraumatic Face and Sinus: Negative for sinus tenderness Throat: Negative for posterior oropharynx abnormal Eyes PERRL and EOMs intact bilaterally Neck no lymphadenopathy, supple, no meningeal signs and no JVD Neck Narrative: Hoarse without stridor Resp normal respiratory effort and clear to auscultation bilaterally Cardio no murmurs Rate: regular rate Rhythm: regular rhythm GI non-tender and no masses; Negative for non-distended Back/Spine no CVA tenderness and normal ROM Extremity normal to inspection and full ROM Neuro oriented x3, CN's II-XII intact bilaterally and no sensory deficits noted Sensorium / Orientation: alert Motor Exam: strength 5/5 throughout Psych mental status grossly normal Skin Lesions: no lesions Rashes: no rashes MDM MDM MDM Narrative Medical decision making narrative: Patient was given a duo nebulizer treatment, she felt like she could use 1 although her lungs sound clear at this time. 2 view chest x-ray was obtained. In my interpretation, it is normal radiology is in agreement. Patient was given a duo nebulizer and she did feel little better, but would like some more albuterol which was done. Started on prednisone, I think she will benefit from prednisone prescription but not antibiotics. I saw her daughter as well who signed in simultaneously, she has the exact same thing with the exact same timing and this is highly likely to be viral in etiology. Radiography Chest X-Ray - ED: 2 View and Read by ED Physician Diagnostic Testing: Clinical Impression(s) from Imaging Studies Chest X-Ray 04/23/22 19:22 IMPRESSION: There are no acute findings. Electronically Signed: Bennett Johnson MD at 19:45 EST , Discharge Plan Triage Chief Complaint: Cold Sx ED Provider: Gonzalo Garrido Dx/Rx/DC Orders Clinical Impression: Acute bronchitis, viral, Acute asthma exacerbation Instructions: ED Bronchitis, No Antibiotic (Adult), Asthma Prescriptions: New prednisone 20 mg tablet 40 mg PO DAILY Qty: 12 0RF No Action lisinopril 2.5 MG tablet 2.5 mg PO DAILY Label Comments: HEART atenolol [Tenormin] 25 MG tablet 25 mg PO DAILY diclofenac sodium 75 MG tablet 75 mg PO BID PRN PRN (Reason: Pain) gabapentin 300 MG capsule 300 mg PO QHS Label Comments: TAKE 1 CAPSULE BY MOUTH AT BEDTIME albuterol sulfate 1 INHALER inhaler 1 - 2 puff inhalation Q4H PRN PRN (Reason: Wheezing) Qty: 1 0RF venlafaxine 37.5 MG tablet 37.5 mg PO DAILY hydroxyzine HCl 25 MG tablet 25 mg PO Q6H PRN PRN (Reason: Anxiety) Label Comments: TAKE 1 TABLET BY MOUTH EVERY 6 HOURS NEEDED FOR ANXIETY omeprazole 40 mg Capsule,Delayed Release(Dr/Ec) 40 mg PO BID Advair HFA 115-21 mcg/actuation Hfa Aerosol Inhaler 2 puff INHALATION BID Linzess 290 mcg Capsule 290 mcg PO DAILY cyclobenzaprine 10 mg tablet 10 mg PO TID PRN (Reason: muscle spasm) Qty: 20 0RF Primary Care Provider: Oliver Lyons Referrals: Oliver Lyons MD [Primary Care Provider] - 1 Week if not improving Disposition Disposition: Home, Self Care
[2022-04-23] MEDS: predniSONE 20 MG Tablet 40 MG PO (19:20)
--- NOTE | 2022-04-23 19:22 | RAD_ITS ---
STUDY: X-RAY CHEST REASON FOR EXAM: Female, 52 years old. cough, chest hurts, wheezing/asthma TECHNIQUE: XR Chest 2 Views COMPARISON: 05.02.19 FINDINGS: There is atherosclerotic calcification of the aortic arch with tortuosity. There are diffuse degenerative changes of the visualized thoracic spine. There is degenerative osteoarthritis of the bilateral shoulders. There is no demonstrated pleural abnormality. There is a left sided pacemaker batterypack. Normal size heart. Normal mediastinum and sagar. Normal visualized pulmonary arteries. There is no demonstrated abnormality of the visualized soft tissue structures of the upper abdomen. RAD/Chest PA and Lateral IMPRESSION: There are no acute findings. Electronically Signed: Bennett Johnson MD at 19:45 EST ,
[2022-04-23] MEDS: Ipratropium/Albuterol Sulfate 3 ML AMPUL.NEB INHALATION (19:24)
[2022-04-23 19:32] VITALS: PULSE 87; RESP 14
[2022-04-23] MEDS: Albuterol 2.5 MG/3 ML VIAL.NEB. INHALATION ×2 (20:14)
== END 2022-04-23 20:27 | disposition home or self-care (01) ==
PROVIDERS: Emergency Provider Emergency Medicine; PCP Family Medicine; Visit Provider Emergency Medicine
DX: J20.9 Acute bronchitis, unspecified (principal); I50.9 Heart failure, unspecified; R51.9 Headache, unspecified; M79.10 Myalgia, unspecified site; J45.901 Unspecified asthma with (acute) exacerbation; Z95.810 Presence of automatic (implantable) cardiac defibrillator
CPT/HCPCS: 71046; 94640; 99283

== ENCOUNTER 2022-04-27 10:23 | Emergency (ER) | payer OTHER, MEDICAID, SELFPAY ==
[2022-04-27 10:24] VITALS: BP 129/74; PULSE 101; RESP 18; TEMP 37.2; O2SAT 100; BMI 33.3
[2022-04-27 10:40] VITALS: O2SAT 98
--- NOTE | 2022-04-27 10:43 | EKG12_ITS ---
Test Reason : Blood Pressure : / mmHG Vent. Rate : 083 BPM Atrial Rate : 083 BPM P-R Int : 146 ms QRS Dur : 076 ms QT Int : 376 ms P-R-T Axes : 057 138 -20 degrees QTc Int : 441 ms Atrial-sensed ventricular-paced rhythm Abnormal ECG Confirmed by ROSELIA WRIGHT, LATIA ([id number]), multimedia editor MICKIE HARRIS ([id number]) on 04/28/2022 11:40:25 AM Referred By: Confirmed By:LATIA VELOZ MD
--- NOTE | 2022-04-27 10:44 | ED.VIS.DYS ---
HPI History of Present Illness Chief Complaint: Shortness of Breath Informant: patient Onset/Context/Timing Onset: Weeks (2-3) Context: gradual and onset Timing: Continuous Quality: Positive for - (short of breath) Current Severity: Moderate Maximum Severity: Moderate Worsened by: Exertion and Lying flat Associated Symptoms cough Chest Pain: Positive for None Narrative Narrative: Patient is a cough along with wheezing, hoarseness for the past 2 or 3 weeks, she now has developed fevers up to 100, we saw her here and place her on prednisone, she states it is not helping and she Feels like she is getting worse. Although she did not tell us this at her last visit, when she brought her daughter who was ill with the same symptoms for the same period of time, she apparently is here for her fourth visit for these issues. She was seen at an ER and placed on a prednisone taper before she saw us, unbeknownst to me at the time when I put her on a prednisone burst. She denies developing any swelling in her legs right now. She sees [facility] pulmonology for her asthma. She denies any chest pain. She denies any other new symptoms except for feeling her heart beating fast, her heart rate is 101 here in the emergency department. She had a negative COVID test several days at least, into the illness. [facility] Medical History (Updated 04/27/22 @ 14:[address] Gonzalo Garrido MD) Asthma Back injury Congestive heart failure (CHF) DDD (degenerative disc disease), lumbar ICD (implantable cardioverter-defibrillator) in place Nonischemic cardiomyopathy Home Medications lisinopril 2.5 mg tablet 2.5 mg PO DAILY 10/03/15 [History Last Taken 09/12/15] atenolol 25 mg tablet (Tenormin) 25 mg PO DAILY 04/26/18 [History Last Taken Unknown] diclofenac sodium 75 mg tablet,delayed release 75 mg PO BID PRN PRN Pain 04/26/18 [History Last Taken Unknown] gabapentin 300 mg capsule 300 mg PO QHS 12/28/18 [History Last Taken Unknown] albuterol sulfate 90 mcg/actuation aerosol inhaler 1 - 2 puff inhalation Q4H PRN PRN Wheezing ##1 05/02/19 [Rx Last Taken Unknown] hydroxyzine HCl 25 mg tablet 25 mg PO Q6H PRN PRN Anxiety 05/02/19 [History Last Taken Unknown] venlafaxine 37.5 mg tablet 37.5 mg PO DAILY 05/02/19 [History Last Taken Unknown] fluticasone propionate 115 mcg-salmeterol 21 mcg/actuation HFA inhaler (Advair HFA) 2 puff inhalation BID 10/29/21 [History Last Taken Unknown] linaclotide 290 mcg capsule (Linzess) 290 mcg PO DAILY 10/29/21 [History Last Taken Unknown] omeprazole 40 mg capsule,delayed release 40 mg PO BID 10/29/21 [History Last Taken Unknown] cyclobenzaprine 10 mg tablet 10 mg PO TID PRN muscle spasm #20 tabs 03/08/22 [Rx Last Taken Unknown] prednisone 20 mg tablet 40 mg PO DAILY #12 TABLETS 04/23/22 [Rx Last Taken Unknown] azithromycin 250 mg tablet See Rx Instructions PO .COMPLEX #6 tabs 04/27/22 [Rx Last Taken Unknown] Allergy/AdvReac Type Severity Reaction Status Date / Time naproxen Allergy Hives Verified 04/27/22 10:27 vancomycin Allergy Rash Verified 04/27/22 10:27 carvedilol AdvReac Upset Verified 04/27/22 10:27 Stomach Surgical History History of ankle surgery History of appendectomy History of cholecystectomy History of neck surgery Status post biventricular pacemaker Social History Smoking Status: Never smoker alcohol intake: never substance use type: does not use ROS ROS ED Constitutional Constitutional ED: Reports fever(s) and malaise; Denies chills Eyes Eyes: Denies change in vision or diplopia ENT ENT ED: Reports hoarseness and nasal congestion; Denies ear pain, rhinorrhea or sore throat Cardiovascular Cardiovascular: Reports orthopnea and racing heartbeat; Denies leg edema or palpitations Respiratory/Chest Respiratory/Chest: Reports chest tightness, cough, dyspnea, dyspnea on exertion, orthopnea and sputum Gastrointestinal Gastrointestinal: Denies abdominal pain, diarrhea, nausea or vomiting Genitourinary Genitourinary ED: Denies dysuria or hematuria Musculoskeletal Musculoskeletal: Denies back pain, myalgias or neck pain Integumentary Denies abscess or rash Neurologic Neurologic: Denies headache(s), paresthesias or weakness Psychiatric Psychiatric: Denies anxiety or suicidal thoughts EXAM Physical Exam Const Vital Signs: 04/27/22 10:24 04/27/22 10:40 Temperature 98.9 F Temperature Source Temporal Pulse Rate 101 H Respiratory Rate 18 Respiratory Effort Normal Respiratory Depth Normal Respiratory Pattern Normal Blood Pressure 129/74 H Blood Pressure Mean 92 Pulse Ox 100 Oxygen Delivery Method Room Air Room Air Positive well nourished and well developed General Appearance ED: well developed and NAD HEENT Reports moist mucous membranes HEENT Narrative: Hoarse of voice. No stridor. normocephalic and atraumatic Eyes PERRL and EOMs intact bilaterally Neck full ROM, supple, no meningeal signs and no JVD Resp Resp Narrative: Tachypnea no distress. Able to converse. Bibasilar rhonchi. No wheezes. Equal breath sounds bilaterally. Cardio regular rate, regular rhythm and no murmurs GI non-tender and non-distended Auscultation: normoactive bowel sounds Palpation: soft Back/Spine no CVA tenderness General Back: other FROM Extremity normal to inspection and no calf tenderness General Extremety ED: Negative for edema, pulses abnormal or tenderness General Extremity: Negative for edema or pulses abnormal Neuro oriented x3, CN's II-XII intact bilaterally and no sensory deficits noted Sensorium / Orientation: awake and alert Motor Exam: strength 5/5 throughout Psych mental status grossly normal Skin no rashes or lesions noted and no wounds MDM MDM MDM Narrative Medical decision making narrative: Patient's lungs were clear last week and her CXR was normal, but today she does have some bibasilar rhonchi, and given that she is on prednisone given by multiple providers and she is getting worse, I am considering the possibility that she is getting fluid overloaded and having an exacerbation of congestive heart failure, although clinically if this is the case it does not appear to involve any peripheral edema. Performed a more of a work-up than just a chest x-ray this time, although that was repeated, and she was given IV Lasix. Prior to that she is not febrile nor hypoxemic. However, her work-up really is negative except for her potassium being low but this is probably due to an acute respiratory alkalosis due to her being mildly tachypneic. Her BNP and troponin are normal, her EKG and chest x-ray are normal, 2 views of my interpretation as confirmed by radiology. Patient wants a chest CT she is concerned about an occult pneumonia, at this time since she has been seen to many times and has been sick for over 2-3 weeks without any improvement, I had this performed. It showed was bilateral upper lobe groundglass opacities of unknown significance/chronicity. We will cover her for atypicals, her pulse ox has been 100% and she has been breathing fine during her stay here, asking for Tylenol for headache, and at this time there is no indication for admission. Lab Data Attestation: I reviewed the patient's lab results. Labs: Laboratory Results - last 24 hr 04/27/22 04/27/22 04/27/22 10:55 10:55 10:55 WBC 7.2 RBC 4.59 Hgb 12.4 Hct 39.8 MCV 86.7 MCH 27.0 MCHC 31.2 L RDW Std Deviation 43.4 RDW Coeff of Irma 13.7 Plt Count 253 MPV 10.2 Immature Gran % (Auto) 1.400 H Neut % (Auto) 74.6 H Lymph % (Auto) 15.8 L [place] % (Auto) 7.2 Eos % (Auto) 0.4 Baso % (Auto) 0.6 Absolute Neuts (auto) 5.4 Absolute Lymphs (auto) 1.14 Nucleated RBC % 0 D-Dimer Quant (PE/DVT) Sodium 142 Potassium 3.0 L Chloride 104 Carbon Dioxide 31.0 Anion Gap 7 BUN 13 Creatinine 0.98 Estim Creat Clear Calc 61.11 Est GFR (MDRD) Af Amer 77 Est GFR (MDRD) Non-Af 64 BUN/Creatinine Ratio 13.3 Glucose 114 H Calcium 8.5 Troponin I High Sens 4 B-Natriuretic Peptide 20.6 04/27/22 10:55 WBC RBC Hgb Hct MCV MCH MCHC RDW Std Deviation RDW Coeff of Irma Plt Count MPV Immature Gran % (Auto) Neut % (Auto) Lymph % (Auto) [place] % (Auto) Eos % (Auto) Baso % (Auto) Absolute Neuts (auto) Absolute Lymphs (auto) Nucleated RBC % D-Dimer Quant (PE/DVT) 0.34 Sodium Potassium Chloride Carbon Dioxide Anion Gap BUN Creatinine Estim Creat Clear Calc Est GFR (MDRD) Af Amer Est GFR (MDRD) Non-Af BUN/Creatinine Ratio Glucose Calcium Troponin I High Sens B-Natriuretic Peptide Radiography Diagnostic Testing: Clinical Impression(s) from Imaging Studies Chest X-Ray 04/27/22 11:25 IMPRESSION: No acute cardiopulmonary process. Electronically Signed: Angeles Perry MD at 11:47 EST , Chest CT 04/27/22 12:21 IMPRESSION: Small left pleural effusion. Minimal stable lower lobe dependent atelectasis. Few right upper lobe groundglass opacities, may be secondary to an infectious process of uncertain chronicity. Fatty infiltration of the liver. Electronically Signed: Angeles Perry MD at 13:55 EST , Discharge Plan Triage Chief Complaint: Shortness of Breath ED Provider: Gonzalo Garrido Dx/Rx/DC Orders Clinical Impression: Acute lower respiratory tract infection Instructions: ED Upper Resp Infec Abx Tx Prescriptions: New azithromycin 250 mg tablet See Rx Instructions .ROUTE .COMPLEX Qty: 6 0RF Rx Instructions: For 250 mg dose pack: take 500 mg today (day 1), then 250 mg for 4 days (days 2-5) Continued lisinopril 2.5 MG tablet 2.5 mg PO DAILY Label Comments: HEART atenolol [Tenormin] 25 MG tablet 25 mg PO DAILY diclofenac sodium 75 MG tablet 75 mg PO BID PRN PRN (Reason: Pain) gabapentin 300 MG capsule 300 mg PO QHS Label Comments: TAKE 1 CAPSULE BY MOUTH AT BEDTIME albuterol sulfate 1 INHALER inhaler 1 - 2 puff inhalation Q4H PRN PRN (Reason: Wheezing) Qty: 1 0RF venlafaxine 37.5 MG tablet 37.5 mg PO DAILY omeprazole 40 mg Capsule,Delayed Release(Dr/Ec) 40 mg PO BID Advair HFA 115-21 mcg/actuation Hfa Aerosol Inhaler 2 puff INHALATION BID Linzess 290 mcg Capsule 290 mcg PO DAILY cyclobenzaprine 10 mg tablet 10 mg PO TID PRN (Reason: muscle spasm) Qty: 20 0RF prednisone 20 mg tablet 40 mg PO DAILY Qty: 12 0RF Held hydroxyzine HCl 25 MG tablet 25 mg PO Q6H PRN PRN (Reason: Anxiety) Hold Instructions: Resume on 05/07/22. Label Comments: TAKE 1 TABLET BY MOUTH EVERY 6 HOURS NEEDED FOR ANXIETY Primary Care Provider: Oliver Lyons Referrals: Oliver Lyons MD [Primary Care Provider] - Saulo Marquez MD [Non-Staff] - 3-5 Days (Dr. Baeza) Disposition Disposition: Home, Self Care
[2022-04-27 11:09] LABS: Absolute Lymphocyte Count 1.14 X10^3/uL (0.83-4.51); Absolute Neutrophil Count 5.4 X10^3/uL (2.0-7.7); Basophil# 0.04 X10^3/uL; Basophil% 0.6 % (0-1); Eosinophil# 0.03 X10^3/uL; Eosinophils% 0.4 % (0-5); Hematocrit 39.8 % (37-47); Hemoglobin 12.4 g/dL (12.0-15.0); Lymphocyte # 1.14 X10^3/ul (0.83-4.51); Lymphocyte % 15.8 % (19-41); Mean Corp Hgb Conc 31.2 g/dL (32-36); Mean Corpuscular Volume 86.7 fL (81-99); Mean Platelet Vol. 10.2 fl (6.2-12.0); Monocyte# 0.52 X10^3/uL; Monocyte% 7.2 % (0-10); NRBC Flagged by Analyzer 0 % (0-5); Neutrophil # 5.39 X10^3/uL (2.7-7.7); Neutrophil % 74.6 % (47-70); Platelet Count 253 K/mm3 (150-450); RBC Distribution Width CV 13.7 % (11.6-14.6); RBC Distribution Width SD 43.4 fl (35.1-43.9); Red Blood Count 4.59 M/mm3 (4.2-5.4); White Blood Count 7.2 K/mm3 (4.4-11.0)
[2022-04-27 11:19] LABS: D-Dimer Quantitative (DVT/PE) 0.34 FEU/ug/m (0.27-0.49)
[2022-04-27 11:21] LABS: Anion Gap 7 (5-15); BUN 13 mg/dL (7-18); BUN/Creat Ratio 13.3 RATIO (10-20); Calcium,Total 8.5 mg/dL (8.5-10.1); Chloride 104 mmol/L (98-107); Creatinine, Serum 0.98 mg/dL (0.55-1.02); EST Glomerular Filtration Rate 64 mL/min (>60); Est Glom Filt Rate - Afr Amer 77 mL/min (>60); Estimated Creatinine Clearance 61.11 ml/min; Glucose 114 mg/dL (74-106); Sodium Level 142 mmol/L (136-145); Troponin-I HS 4 pg/mL (3.0-54.0)
--- NOTE | 2022-04-27 11:25 | RAD_ITS ---
STUDY: X-RAY CHEST REASON FOR EXAM: Female, 52 years old. Dyspnea, cough, hx CHF TECHNIQUE: Frontal and lateral views of the chest. COMPARISON: 04/23/2022 FINDINGS: There is no new focal consolidation. Normal size heart. There is a cardiac pacer device in place. Normal mediastinum and sagar. Normal visualized pulmonary arteries. Normal visualized aortic arch and descending thoracic aorta. Normal visualized thoracic spine. Normal visualized ribs, clavicles, and shoulders. There is no demonstrated abnormality of the visualized soft tissue structures of the upper abdomen. RAD/Chest PA and Lateral IMPRESSION: No acute cardiopulmonary process. Electronically Signed: Angeles Perry MD at 11:47 EST ,
[2022-04-27 11:30] LABS: BNP,B-Type NATRIURETIC PEPTIDE 20.6 pg/mL (0-100)
--- NOTE | 2022-04-27 12:21 | CT_ITS ---
INDICATION: dyspnea, cough, normal CXR EXAMINATION: CT CHEST WITHOUT CONTRAST - CT Chest W/O Contrast Injection TECHNIQUE: Helically acquired images were obtained of the chest. A radiation dose optimization technique was used for this scan. IV Contrast dosage and agent: None. COMPARISON: 07/07/[address] of the abdomen and pelvis dated 03/12/2020 FINDINGS: LUNGS, PLEURA AND LARGE AIRWAYS: There is a small left pleural effusion. There is stable dependent atelectasis within the lower lobes. There is a stable cardiac pacer device in place with leads traversing the posterior right hemithorax and right lung base. There is a stable subpleural 3 mm right lower lobe nodule. There are a few subcentimeter groundglass opacities within the right upper lobe. THYROID: No thyroid lesions. HEART AND PERICARDIUM: Heart size is normal. No pericardial effusion. CORONARY ARTERIES: Coronary artery calcification is not seen. VESSELS: Thoracic aorta is not dilated. MEDIASTINUM AND MISSY: There is a stable prominent subcarinal lymph node. Esophagus is unremarkable. No hiatal hernia. UPPER ABDOMEN: The limited images of the upper abdomen demonstrate diffusely low attenuation liver consistent with fatty infiltration. BONES: No suspicious lytic or blastic abnormality. CT/Chest without Contrast IMPRESSION: Small left pleural effusion. Minimal stable lower lobe dependent atelectasis. Few right upper lobe groundglass opacities, may be secondary to an infectious process of uncertain chronicity. Fatty infiltration of the liver. Electronically Signed: Angeles Perry MD at 13:55 EST ,
--- NOTE | 2022-04-27 14:34 | CCN.REFER ---
multiple unsuccessful IV sticks for lasix administration. per dr gregory wilkerson told hold lasix per CT results.
[2022-04-27] MEDS: Acetaminophen 500 MG Tablet 1000 MG PO (14:37)
[2022-04-27 14:39] VITALS: BP 118/57; PULSE 90; RESP 14; O2SAT 97
== END 2022-04-27 14:43 | disposition home or self-care (01) ==
PROVIDERS: Emergency Provider Emergency Medicine; PCP Family Medicine; Visit Provider Emergency Medicine
DX: J22 Unspecified acute lower respiratory infection (principal); I50.9 Heart failure, unspecified; J45.909 Unspecified asthma, uncomplicated; Z95.810 Presence of automatic (implantable) cardiac defibrillator
CPT/HCPCS: 71046; 71250; 80048; 83880; 84484; 85025; 85379; 93005; 96374; 99283; A4216; J1940

== ENCOUNTER 2022-04-29 11:01 | Emergency (ER) | payer OTHER, MEDICAID, SELFPAY ==
[2022-04-29 11:02] VITALS: BP 121/79; PULSE 113; RESP 24; TEMP 37.1; O2SAT 97; BMI 32.9
--- NOTE | 2022-04-29 11:30 | RAD_ITS ---
STUDY: X-RAY CHEST REASON FOR EXAM: Female, 52 years old. Shortness of breath, fever and cough. TECHNIQUE: Single AP portable view of the chest. COMPARISON: Comparison is made with prior study dated 04/27/2022. FINDINGS: The lungs are clear and expanded. There is no demonstrated pleural abnormality. Normal size heart. A left-sided dual-chamber pacemaker is seen. Normal mediastinum and sagar. Normal visualized pulmonary arteries. Normal visualized aortic arch and descending thoracic aorta. Normal visualized thoracic spine. Normal visualized ribs, clavicles, and shoulders. There is no demonstrated abnormality of the visualized soft tissue structures of the upper abdomen. RAD/Chest 1 View (Portable) IMPRESSION: Normal x-ray examination of the chest. Electronically Signed: Abel Lundberg MD at 11:42 EST ,
[2022-04-29] MEDS: Haloperidol Lactate 5 MG/ML Vial 10 MG IM (11:36)
--- NOTE | 2022-04-29 11:37 | EDS_ITS ---
HPI History of Present Illness Chief Complaint: Shortness of Breath Informant: patient and EMS Narrative Narrative: 52-year-old female with a history of panic attacks CHF and asthma presenting to the emergency room with chief complaint of shortness of breath. Reportedly she was laying on the floor of her nurse practitioner's office hyperventilating. She tells me that she has had a cough for a month and is lost her voice. She states that she is on her second round of antibiotics. Her pulse ox was reportedly 92% at home which would still be in an acceptable range. She has a history of panic attacks but tells me that what I take for them is in the [facility] er you should look it up [facility] Medical History Asthma Back injury Congestive heart failure (CHF) DDD (degenerative disc disease), lumbar ICD (implantable cardioverter-defibrillator) in place Nonischemic cardiomyopathy Home Medications lisinopril 2.5 mg tablet 2.5 mg PO DAILY 10/03/15 [History Last Taken 09/12/15] atenolol 25 mg tablet (Tenormin) 25 mg PO DAILY 04/26/18 [History Last Taken Unknown] diclofenac sodium 75 mg tablet,delayed release 75 mg PO BID PRN PRN Pain 04/26/18 [History Last Taken Unknown] gabapentin 300 mg capsule 300 mg PO QHS 12/28/18 [History Last Taken Unknown] albuterol sulfate 90 mcg/actuation aerosol inhaler 1 - 2 puff inhalation Q4H PRN PRN Wheezing ##1 05/02/19 [Rx Last Taken Unknown] hydroxyzine HCl 25 mg tablet 25 mg PO Q6H PRN PRN Anxiety 05/02/19 [History Last Taken Unknown] venlafaxine 37.5 mg tablet 37.5 mg PO DAILY 05/02/19 [History Last Taken Unknown] fluticasone propionate 115 mcg-salmeterol 21 mcg/actuation HFA inhaler (Advair HFA) 2 puff inhalation BID 10/29/21 [History Last Taken Unknown] linaclotide 290 mcg capsule (Linzess) 290 mcg PO DAILY 10/29/21 [History Last Taken Unknown] omeprazole 40 mg capsule,delayed release 40 mg PO BID 10/29/21 [History Last Taken Unknown] cyclobenzaprine 10 mg tablet 10 mg PO TID PRN muscle spasm #20 tabs 03/08/22 [Rx Last Taken Unknown] prednisone 20 mg tablet 40 mg PO DAILY #12 TABLETS 04/23/22 [Rx Last Taken Unknown] azithromycin 250 mg tablet See Rx Instructions PO .COMPLEX #6 tabs 04/27/22 [Rx Last Taken Unknown] Allergy/AdvReac Type Severity Reaction Status Date / Time naproxen Allergy Hives Verified 04/29/22 11:02 vancomycin Allergy Rash Verified 04/29/22 11:02 carvedilol AdvReac Upset Verified 04/29/22 11:02 Stomach Surgical History History of ankle surgery History of appendectomy History of cholecystectomy History of neck surgery Status post biventricular pacemaker Social History Smoking Status: Never smoker alcohol intake: never substance use type: does not use ROS ROS ED Constitutional Constitutional ED: Denies chills or weight loss Eyes Eyes: Denies change in vision or diplopia ENT ENT ED: Reports sore throat; Denies ear pain or rhinorrhea Cardiovascular Cardiovascular: Denies chest pain, orthopnea, palpitations or racing heartbeat Respiratory/Chest Respiratory/Chest: Reports cough, dyspnea and dyspnea on exertion; Denies orthopnea Gastrointestinal Gastrointestinal: Denies abdominal pain, diarrhea, nausea or vomiting Genitourinary Genitourinary ED: Denies dysuria, hematuria or urinary frequency Musculoskeletal Musculoskeletal: Denies arthralgias or myalgias Integumentary Denies abscess or rash Neurologic Neurologic: Denies headache(s) or weakness Psychiatric Psychiatric: Denies anxiety, depression, suicidal ideation or suicidal thoughts Endocrine Endocrinology: Denies polydipsia, polyphagia or polyuria Allergic/Immunologic Allergic/Immunologic ED: Denies mouth swelling, tongue swelling or urticaria EXAM Physical Exam Narrative Exam Narrative: Patient is hyperventilating and appears extraordinarily anxious. Her pulse ox is 98%. Const Vital Signs: 04/29/22 11:02 04/29/22 11:08 04/29/22 13:05 Temperature 98.8 F Temperature Source Temporal Pulse Rate 113 H Respiratory Rate 24 H Respiratory Pattern Tachypnea Blood Pressure 121/79 H Blood Pressure Mean 93 Pulse Ox 97 93 Oxygen Delivery Method Room Air Room Air Positive well nourished, well developed and obese General Appearance ED: well developed Nutritional Appearance: obese HEENT Reports normocephalic, head/scalp atraumatic and moist mucous membranes Eyes PERRL and EOMs intact bilaterally Neck no lymphadenopathy, supple and no JVD Resp normal respiratory effort and clear to auscultation bilaterally Cardio regular rate, regular rhythm and no murmurs GI normal to inspection, nondistended, normoactive bowel sounds and non-tender Palpation: soft Back/Spine no CVA tenderness and normal ROM Extremity normal to inspection General Extremety ED: Negative for edema General Extremity: Negative for edema Neuro oriented x3 and CN's II-XII intact bilaterally Sensorium / Orientation: alert Motor Exam: strength 5/5 throughout Psych Mood & Affect: anxious and tearful; Negative for depressed Skin no rashes or lesions noted and no wounds MDM MDM MDM Narrative Medical decision making narrative: Patient will receive a dose of Haldol. I will obtain a chest x-ray. This was obtained in my interpretation shows no acute process. Radiology concurs. Patient is now resting more comfortably after the Haldol. Her pulse ox is 95 to 96% on room air. She will be discharged home Radiography Diagnostic Testing: Clinical Impression(s) from Imaging Studies Chest X-Ray 04/29/22 11:30 IMPRESSION: Normal x-ray examination of the chest. Electronically Signed: Abel Lundberg MD at 11:42 EST Reading Location ID and State: [facility] / MD , Service support , Discharge Plan Triage Chief Complaint: Shortness of Breath Other Complaint: Fever ED Provider: Shan Forde Dx/Rx/DC Orders Clinical Impression: Bronchitis, Panic attack Instructions: ED Anxiety Reaction Prescriptions: No Action lisinopril 2.5 MG tablet 2.5 mg PO DAILY Label Comments: HEART atenolol [Tenormin] 25 MG tablet 25 mg PO DAILY diclofenac sodium 75 MG tablet 75 mg PO BID PRN PRN (Reason: Pain) gabapentin 300 MG capsule 300 mg PO QHS Label Comments: TAKE 1 CAPSULE BY MOUTH AT BEDTIME albuterol sulfate 1 INHALER inhaler 1 - 2 puff inhalation Q4H PRN PRN (Reason: Wheezing) Qty: 1 0RF venlafaxine 37.5 MG tablet 37.5 mg PO DAILY hydroxyzine HCl 25 MG tablet 25 mg PO Q6H PRN PRN (Reason: Anxiety) Hold Instructions: Resume on 05/07/22. Label Comments: TAKE 1 TABLET BY MOUTH EVERY 6 HOURS NEEDED FOR ANXIETY omeprazole 40 mg Capsule,Delayed Release(Dr/Ec) 40 mg PO BID Advair HFA 115-21 mcg/actuation Hfa Aerosol Inhaler 2 puff INHALATION BID Linzess 290 mcg Capsule 290 mcg PO DAILY cyclobenzaprine 10 mg tablet 10 mg PO TID PRN (Reason: muscle spasm) Qty: 20 0RF prednisone 20 mg tablet 40 mg PO DAILY Qty: 12 0RF azithromycin 250 mg tablet See Rx Instructions .ROUTE .COMPLEX Qty: 6 0RF Rx Instructions: For 250 mg dose pack: take 500 mg today (day 1), then 250 mg for 4 days (days 2-5) Primary Care Provider: Oliver Lyons Referrals: Oliver Lyons MD [Primary Care Provider] - As Needed Disposition Disposition: Home, Self Care Discharge Date/Time: 04/29/22 14:24
[2022-04-29 13:05] VITALS: O2SAT 93
--- NOTE | 2022-04-29 14:20 | ED.RN ---
pt left prior to d/c. s/o states you have basically done nothing for her, she has been here for 5 hours. pt has not been here for 5 hours. s/o hit the plate to open the er doors when they were leaving.
== END 2022-04-29 14:24 | disposition home or self-care (01) ==
PROVIDERS: Emergency Provider Emergency Medicine; PCP Family Medicine; Visit Provider Emergency Medicine
DX: J40 Bronchitis, not specified as acute or chronic (principal); I42.8 Other cardiomyopathies; I50.9 Heart failure, unspecified; F41.0 Panic disorder [episodic paroxysmal anxiety]; Z95.810 Presence of automatic (implantable) cardiac defibrillator
CPT/HCPCS: 71045; 96372; 99284

== ENCOUNTER → 2022-07-22 | Outpatient (CLI) | payer OTHER, MEDICAID, SELFPAY ==
--- NOTE | 2022-07-22 15:35 | RAD_ITS ---
EXAM: XR LUMBOSACRAL SPINE, 2 OR 3 VIEWS CLINICAL INDICATION: LUMBAR/SACRAL DISC DEGENERATION TECHNIQUE: Frontal and lateral views of the lumbar spine and sacrum. This report was created using [employer] report generation technology. COMPARISON: Lumbar myelogram and postmyelogram CT of 01/05/2022. FINDINGS: VERTEBRAE: Mild/moderate thoracolumbar dextroscoliosis. Interval development of slight anterolisthesis of L5 on S1. No compression fracture. There is minimal degenerative sclerosis about the left SI joint. Lumbar facet arthritis is present greatest at L5/S1. OTHER BONES/JOINTS: The visualized lower ribs are intact. DISC SPACES: The L2/3 disc space is more narrow than on the prior study, with development of endplate sclerosis at this level. There are stable marginal osteophytes about the narrowed L2/3 disc space. Remaining lumbar disc spaces are relatively preserved. SOFT TISSUES: Cholecystectomy clips are present. GASTROINTESTINAL TRACT: Unremarkable as visualized. Included bowel gas pattern is non-obstructive. RAD/Lumbar Spine 2 or 3 Views IMPRESSION: 1. Worsening degenerative disc space narrowing at L2/3. 2. Lumbar facet arthritis with development of slight anterolisthesis of L5 on S1. 3. No acute fracture. Electronically Signed: Glenn Baird MD at 4:46 EST ,
== END | disposition home or self-care (01) ==
LOC: RAD 15:30
PROVIDERS: PCP Internal Medicine; Referring Provider Anesthesiology Pain Medicine; Visit Provider Anesthesiology Pain Medicine
DX: M51.36 Other intervertebral disc degeneration, lumbar region (principal); M51.37 Other intervertebral disc degeneration, lumbosacral region
CPT/HCPCS: 72100

== ENCOUNTER 2022-08-18 10:11 | Observation (INO) | payer OTHER, MEDICAID, SELFPAY ==
[2022-08-18] VITALS (13 sets, daily range): BP systolic 102–126; BP diastolic 57–81; PULSE 79–101; RESP 20–34; TEMP 36.4–36.9; O2SAT 93–100; BMI 34.4; BMI 32.7
--- NOTE | 2022-08-18 10:30 | EDS_ITS ---
HPI History of Present Illness Chief Complaint: Shortness of Breath Narrative Narrative: 52-year-old female, past medical history of asthma, cardiomyopathy with pacemaker for left bundle branch block, CHF, presents from Dr. Schafer's office with need for admission. She states that she has been having problems with shortness of breath and dyspnea for the last week. She has been using her medications as directed. She had an aerosolized treatment in the office today. She states that her sterilization technician was concerned about her PFTs, that were low, and requires admission. She has not been put on steroids yet. She states she had a similar episode like this last month. No fevers or chills, no leg swelling. She presents because of the shortness of breath that has steadily been increasing over the last week. She is coughing. [facility] Medical History A-fib Allergic rhinitis due to allergen Arthritis Asthma Asthma with acute exacerbation Back injury Back problem Congestive heart failure (CHF) DDD (degenerative disc disease), lumbar Excessive daytime sleepiness Heart disease ICD (implantable cardioverter-defibrillator) in place Nonischemic cardiomyopathy Primary snoring Home Medications lisinopril 2.5 mg tablet 2.5 mg PO DAILY 10/03/15 [History Last Taken 09/12/15] atenolol 25 mg tablet (Tenormin) 25 mg PO DAILY 04/26/18 [History Last Taken Unknown] diclofenac sodium 75 mg tablet,delayed release 75 mg PO BID PRN PRN Pain 04/26/18 [History Last Taken Unknown] gabapentin 300 mg capsule 300 mg PO QHS 12/28/18 [History Last Taken Unknown] hydroxyzine HCl 25 mg tablet 25 mg PO Q6H PRN PRN Anxiety 05/02/19 [History Last Taken Unknown] linaclotide 290 mcg capsule (Linzess) 290 mcg PO DAILY 10/29/21 [History Last Taken Unknown] omeprazole 40 mg capsule,delayed release 40 mg PO BID 10/29/21 [History Last Taken Unknown] venlafaxine 150 mg tablet,extended release 24 hr 150 mg PO DAILY 06/04/22 [History Last Taken Unknown] albuterol sulfate 1.25 mg/3 mL solution for nebulization 2.5 mg (6 mL) inhalation TID-QID PRN shortness of breath or wheezing 30 days #90 mL 07/28/22 [Rx Last Taken Unknown] albuterol sulfate 90 mcg/actuation aerosol inhaler 1 - 2 puff inhalation Q4H PRN PRN Wheezing ##1 07/28/22 [Rx Last Taken Unknown] budesonide-formoterol HFA 160 mcg-4.5 mcg/actuation aerosol inhaler (Symbicort) 2 puff inhalation BID #10.2 grams 07/28/22 [Rx Last Taken Unknown] ipratropium bromide 21 mcg (0.03 %) nasal spray 2 spray intranasal BID-TID PRN allergy symptoms #30 mL 07/28/22 [Rx Last Taken Unknown] Allergy/AdvReac Type Severity Reaction Status Date / Time naproxen Allergy Hives Verified 08/18/22 10:16 vancomycin Allergy Rash Verified 08/18/22 10:16 carvedilol AdvReac Upset Verified 08/18/22 10:16 Stomach Family History Other Arthritis Bladder cancer Cancer Colon cancer Diabetes High cholesterol Hypertension Skin cancer Surgical History History of ankle surgery History of appendectomy History of cholecystectomy History of neck surgery Status post biventricular pacemaker Social History Smoking Status: Never smoker alcohol intake: never substance use type: does not use ROS ROS ED ROS Narrative Constitutional: No fever, no chills. HEENT: No sore throat. No neck pain. No loss of vision. No rhinorrhea. Cardiovascular: No chest pain. No palpitations. No pedal edema. Respiratory: Positive cough, increasing shortness of breath. Abdominal: No abdominal pain. No nausea. No vomiting. Genitourinary: No dysuria. No hematuria. Musculoskeletal: No myalgias. No arthralgias. Neurologic: No headaches. No dizziness. No lightheadedness. Skin: No rash. No change in color. Psychiatric: No depression. No anxiety. EXAM Physical Exam Narrative Exam Narrative: Afebrile. Vital signs noted. HEENT: Normocephalic. Atraumatic. PERRL, EOMI. Neck soft and supple. No point tenderness or step off. Cardiovascular: Regular rate and rhythm. No murmurs, rubs, or gallops appreciated. Respiratory: Positive tachypnea. Moving a fair amount of air. Positive expiratory wheezing. Gastrointestinal: Abdomen soft, nontender, with normoactive bowel sounds. No rebound or guarding. Neurological: Awake. Alert. Nonfocal, nonlateralizing. Skin: No rash. Normal color. No pallor. Musculoskeletal: No pedal edema. Full range of motion extremities. Const Vital Signs: 08/18/22 10:13 08/18/22 10:23 08/18/22 10:23 Temperature 97.5 F L 98.4 F 98.4 F Temperature Source Temporal Oral Oral Pulse Rate 85 79 79 Respiratory Rate 22 H 20 H 20 H Respiratory Effort Blood Pressure 111/71 108/64 108/64 Blood Pressure Mean 84 78 78 Pulse Ox 100 100 100 Oxygen Delivery Method Room Air Room Air Room Air 08/18/22 10:28 08/18/22 11:24 08/18/22 11:16 Temperature 97.5 F L 97.5 F L Temperature Source Oral Oral Pulse Rate 79 79 Respiratory Rate 22 H 22 H Respiratory Effort Labored Accessory Muscle Use Blood Pressure 109/57 L 109/57 L Blood Pressure Mean 74 74 Pulse Ox 98 96 Oxygen Delivery Method Room Air Room Air Room Air MDM MDM MDM Narrative Medical decision making narrative: While her pulse ox is 100% on room air currently, looking at her PFTs, she has a low FVC and FEV1. Comprehensive work-up will be pursued. She has just received an aerosolized treatment. She will be administered methylprednisolone 125 mg intravenously. I will obtain an EKG and laboratory work. EKG was obtained and interpreted by myself which demonstrates paced rhythm at [address] changes or ectopy. There is no significant change from an EKG due to April 27, 2022. I reviewed her outpatient PFTs which show a lower than normal FVC and FEV1. Chest x-ray interpreted by myself shows no acute process. I reviewed the radiology report which confirms this. In review of her laboratory work, she has a normal white count of 7.0, hemoglobin normal at 13.7, so anemia is not the cause of her shortness of breath. Review of her electrolyte panel shows normal sodium of 142, normal potassium of 3.8, chloride slightly elevated at 109. High-sensitivity troponin is 3, so I do not think that she is short of breath from cardiac ischemia. Additionally, her BNP is normal at 18.3, so I do not feel that she is short of breath from CHF. At this point in time, given her abnormal pulmonary function tests, she still felt short of breath so she was given a DuoNeb aerosolized treatment. I discussed the patient with Dr. Ramey for observation on the general medical floor. Patient is in stable condition. History & Record Review Discussion w/independent historian: Patient Additional record(s) reviewed:: Prior ED visit Lab Data Attestation: I reviewed the patient's lab results. Labs: Laboratory Results - last 24 hr 08/18/22 08/18/22 08/18/22 10:33 10:33 10:33 WBC 7.0 RBC 5.02 Hgb 13.7 Hct 43.1 MCV 85.9 MCH 27.3 MCHC 31.8 L RDW Std Deviation 46.5 H RDW Coeff of Irma 15.1 H Plt Count 229 MPV 10.1 Immature Gran % (Auto) 0.300 Neut % (Auto) 68.4 Lymph % (Auto) 24.8 Blaine % (Auto) 4.9 Eos % (Auto) 1.0 Baso % (Auto) 0.6 Absolute Neuts (auto) 4.8 Absolute Lymphs (auto) 1.73 Nucleated RBC % 0 Sodium 142 Potassium 3.8 Chloride 109 H Carbon Dioxide 22.0 Anion Gap 11 BUN 15 Creatinine 1.04 H Estim Creat Clear Calc 57.59 Est GFR (MDRD) Af Amer 72 Est GFR (MDRD) Non-Af 59 L BUN/Creatinine Ratio 14.4 Glucose 120 H Calcium 9.7 Troponin I High Sens 3 B-Natriuretic Peptide 18.3 Radiography Diagnostic Testing: Clinical Impression(s) from Imaging Studies Chest X-Ray 08/18/22 11:05 IMPRESSION: Normal x-ray examination of the chest. Electronically Signed: Abel Lundberg MD at 11:47 EST , Discharge Plan Dx/Rx/DC Orders Clinical Impression: Asthma with acute exacerbation, History of cardiomyopathy, Shortness of breath, Abnormal PFTs Disposition Disposition: [facility]
[2022-08-18] MEDS: MethylPREDNISolone 125 MG/2 ML Vial IV (10:51)
[2022-08-18 11:02] LABS: Absolute Lymphocyte Count 1.73 X10^3/uL (0.83-4.51); Absolute Neutrophil Count 4.8 X10^3/uL (2.0-7.7); Basophil# 0.04 X10^3/uL; Basophil% 0.6 % (0-1); Eosinophil# 0.07 X10^3/uL; Hematocrit 43.1 % (37-47); Hemoglobin 13.7 g/dL (12.0-15.0); Lymphocyte # 1.73 X10^3/ul (0.83-4.51); Lymphocyte % 24.8 % (19-41); Mean Corp Hgb Conc 31.8 g/dL (32-36); Mean Corpuscular Hgb 27.3 pg (27.0-32.0); Mean Corpuscular Volume 85.9 fL (81-99); Mean Platelet Vol. 10.1 fl (6.2-12.0); Monocyte# 0.34 X10^3/uL; Monocyte% 4.9 % (0-10); NRBC Flagged by Analyzer 0 % (0-5); Neutrophil # 4.78 X10^3/uL (2.7-7.7); Neutrophil % 68.4 % (47-70); Platelet Count 229 K/mm3 (150-450); RBC Distribution Width CV 15.1 % (11.6-14.6); RBC Distribution Width SD 46.5 fl (35.1-43.9); Red Blood Count 5.02 M/mm3 (4.2-5.4)
--- NOTE | 2022-08-18 11:05 | RAD_ITS ---
STUDY: X-RAY CHEST REASON FOR EXAM: Female, 52 years old. Shortness of Breath TECHNIQUE: Single AP portable view of the chest. COMPARISON: Comparison is made with prior study April 29, 2022. FINDINGS: EKG electrodes are seen. The lungs are clear and expanded. There is no demonstrated pleural abnormality. Normal size heart. A left-sided dual-chamber pacemaker seen. Normal mediastinum and sagar. Normal visualized pulmonary arteries. Normal visualized aortic arch and descending thoracic aorta. Normal visualized thoracic spine. Normal visualized ribs, clavicles, and shoulders. There is no demonstrated abnormality of the visualized soft tissue structures of the upper abdomen. RAD/Chest 1 View (Portable) IMPRESSION: Normal x-ray examination of the chest. Electronically Signed: Abel Lundberg MD at 11:47 EST ,
[2022-08-18 11:17] LABS: BNP,B-Type NATRIURETIC PEPTIDE 18.3 pg/mL (0-100)
[2022-08-18 11:20] LABS: Anion Gap 11 (5-15); BUN 15 mg/dL (7-18); BUN/Creat Ratio 14.4 RATIO (10-20); Calcium,Total 9.7 mg/dL (8.5-10.1); Chloride 109 mmol/L (98-107); Creatinine, Serum 1.04 mg/dL (0.55-1.02); EST Glomerular Filtration Rate 59 mL/min (>60); Est Glom Filt Rate - Afr Amer 72 mL/min (>60); Estimated Creatinine Clearance 57.59 ml/min; Glucose 120 mg/dL (74-106); Potassium 3.8 mmol/L (3.5-5.1); Sodium Level 142 mmol/L (136-145); Troponin-I HS 3 pg/mL (3.0-54.0)
--- NOTE | 2022-08-18 12:30 | HP.PCM.HOS_ITS ---
HPI - General General Date of Admission: 08/18/22 Date of Service: 08/18/22 Chief Complaint: shortness of breath HPI Narrative RAZA MANCUSO, is a 52 F with a PMH as outlined who presents with a complaint of shortness of breath which had been going on for a week. She had been using her meds as outlined and says she went to see her hat parts cutter machine today. She had a pulmonary function test today and her hat parts cutter machine was concerned about her pu lmonary function test so she was sent to the ED. She denied any fever, chills, chest pain, palpitations, dizziness, nausea, vomiting or diarrhea. Review of systems was otherwise negative. VItals in the ED were blood pressure 109/57, pulse rate of 79, respiratory rate of 22 and temperature of 97.5 Fahrenheit. She was saturating at 98% on room air. CBC was unremarkable and chemistry was also largely unremarkable apart from creatinine of 1.04. Initial troponin was 3 and BNP was 18.3. Chest x-ray showed clear lungs with no acute cardiopulmonary process. EKG also showed no acute ST changes. She has been admitted to be managed for shortness of breath likely secondary to acute asthma exacerbation. [facility] Medical History A-fib Allergic rhinitis due to allergen Arthritis Asthma Asthma with acute exacerbation Back injury Back problem Congestive heart failure (CHF) DDD (degenerative disc disease), lumbar Excessive daytime sleepiness Heart disease ICD (implantable cardioverter-defibrillator) in place Nonischemic cardiomyopathy Primary snoring Home Medications lisinopril 2.5 mg tablet 2.5 mg PO QHS BP 10/03/15 [History Last Taken 08/17/22] atenolol 25 mg tablet (Tenormin) 25 mg PO QHS heart 04/26/18 [History Last Taken 08/17/22] diclofenac sodium 75 mg tablet,delayed release 75 mg PO BID PRN PRN Pain 04/26/18 [History Last Taken Unknown] hydroxyzine HCl 25 mg tablet 25 mg PO Q6H PRN PRN Anxiety 05/02/19 [History Last Taken Unknown] omeprazole 40 mg capsule,delayed release 40 mg PO BID Gerd 10/29/21 [History Last Taken 08/17/22] venlafaxine 150 mg tablet,extended release 24 hr 150 mg PO QHS mood 06/04/22 [History Last Taken 08/17/22] albuterol sulfate 1.25 mg/3 mL solution for nebulization 2.5 mg (6 mL) inhalation TID-QID PRN shortness of breath or wheezing 30 days #90 mL 07/28/22 [Rx Last Taken 08/18/22] albuterol sulfate 90 mcg/actuation aerosol inhaler 1 - 2 puff inhalation Q4H PRN PRN Wheezing ##1 07/28/22 [Rx Last Taken 08/17/22] ipratropium bromide 21 mcg (0.03 %) nasal spray 2 spray intranasal BID-TID PRN allergy symptoms #30 mL 07/28/22 [Rx Last Taken 08/18/22] fluticasone propionate 115 mcg-salmeterol 21 mcg/actuation HFA inhaler (Advair HFA) puff inhalation BID sob 08/18/22 [History Last Taken 08/18/22] meloxicam 7.5 mg tablet 7.5 mg PO LUNCH pain 08/18/22 [History Last Taken Unknown] tizanidine 4 mg tablet 4 mg PO QHS pain 08/18/22 [History Last Taken 08/17/22] Allergy/AdvReac Type Severity Reaction Status Date / Time naproxen Allergy Hives Verified 08/18/22 10:16 vancomycin Allergy Rash Verified 08/18/22 10:16 carvedilol AdvReac Upset Verified 08/18/22 10:16 Stomach Family History Other Arthritis Bladder cancer Cancer Colon cancer Diabetes High cholesterol Hypertension Skin cancer Surgical History History of ankle surgery History of appendectomy History of cholecystectomy History of neck surgery Status post biventricular pacemaker Social History Smoking Status: Never smoker alcohol intake: never substance use type: does not use ROS Constitutional Constitutional: Reports fatigue, malaise and weakness; Denies anorexia, chills or fever(s) Eyes Eyes: Denies change in vision ENT HEENT: Denies dysphagia, headache(s) or sore throat Cardiovascular Cardiovascular: Reports dyspnea on exertion; Denies chest pain, edema, lightheadedness, orthopnea, palpitations, paroxysmal nocturnal dyspnea, rapid heart rate or syncope Respiratory/Chest Respiratory/Chest: Reports cough, dyspnea, shortness of breath at rest, shortness of breath with exertion and wheezing; Denies excessive phlegm production, hemoptysis or productive cough Gastrointestinal Gastrointestinal: Denies abdominal pain, constipation, diarrhea, nausea or vomit ing Genitourinary Genitourinary: Denies burning urination or dysuria Musculoskeletal Musculoskeletal: Denies arthralgias Neurologic Neurologic: Denies confusion, dizziness, focal weakness, headache(s), seizures or syncope Psychiatric Psychiatric: Denies anxiety Endocrine Endocrinology: Denies change in body appearance Vital Signs Vital Signs Vital Signs: 08/18/22 10:13 08/18/22 10:23 08/18/22 10:23 Temperature 97.5 F L 98.4 F 98.4 F Temperature Source Temporal Oral Oral Pulse Rate 85 79 79 Respiratory Rate 22 H 20 H 20 H Respiratory Effort Blood Pressure 111/71 108/64 108/64 Blood Pressure Mean 84 78 78 Pulse Ox 100 100 100 Oxygen Delivery Method Room Air Room Air Room Air 08/18/22 10:28 08/18/22 11:24 08/18/22 11:16 Temperature 97.5 F L 97.5 F L Temperature Source Oral Oral Pulse Rate 79 79 Respiratory Rate 22 H 22 H Respiratory Effort Labored Accessory Muscle Use Blood Pressure 109/57 L 109/57 L Blood Pressure Mean 74 74 Pulse Ox 98 96 Oxygen Delivery Method Room Air Room Air Room Air Weight Weight: 207 lb 5.71 oz Body Mass Index (BMI) 34.4 Physical Exam Const alert, oriented x3 and no apparent distress General Appearance: cooperative HEENT normocephalic, head/scalp atraumatic, hearing grossly normal bilaterally and moist oral mucous membranes Mouth: oral and palatal mucosa normal Eyes PERRL, EOMs intact bilaterally and conjunctivae normal Neck no lymphadenopathy and supple Resp Resp Narrative: patient mildly tachypneic, bilateral wheezing and rhonchi in all lung sarabia; no crackles. On room air. Cardio regular rate, regular rhythm, S1 normal heart sound, S2 normal heart sound and n o murmurs GI normal to inspection, nondistended, normoactive bowel sounds, soft to palpation, non-tender and non-distended Extremity normal to inspection, full ROM and no clubbing, cyanosis or edema Neuro oriented x3, CN's II-XII intact bilaterally, moves all extremities and no focal motor deficits Motor Exam: strength 5/5 throughout Psych affect normal Results Lab / Micro Data Result Diagrams: 08/18/22 10:33 08/18/22 10:33 Labs: Laboratory Results - last 24 hr 08/18/22 10:33: WBC 7.0, RBC 5.02, Hgb 13.7, Hct 43.1, MCV 85.9, MCH 27.3, MCHC 31.8 L, RDW Std Deviation 46.5 H, RDW Coeff of Irma 15.1 H, Plt Count 229, MPV 10.1, Immature Gran % (Auto) 0.300, Neut % (Auto) 68.4, Lymph % (Auto) 24.8, Burnett % (Auto) 4.9, Eos % (Auto) 1.0, Baso % (Auto) 0.6, Absolute Neuts (auto) 4.8, Absolute Lymphs (auto) 1.73, Nucleated RBC % 0 08/18/22 10:33: Sodium 142, Potassium 3.8, Chloride 109 H, Carbon Dioxide 22.0, Anion Gap 11, BUN 15, Creatinine 1.04 H, Estim Creat Clear Calc 57.59, Est GFR (MDRD) Af Amer 72, Est GFR (MDRD) Non-Af 59 L, BUN/Creatinine Ratio 14.4, Glucose 120 H, Calcium 9.7, Troponin I High Sens 3 08/18/22 10:33: B-Natriuretic Peptide 18.3 Micro: Microbiology 08/18/22 10:55 Nasal Secretion SARS-CoV-2 & FLU Antigen (Rapid) - Final Radiology Impression Chest X-Ray 08/18/22 11:05 IMPRESSION: Normal x-ray examination of the chest. Electronically Signed: Abel Lundberg MD at 11:47 EST , Assessment & Plan Assessment/Plan (1) Asthma with acute exacerbation: PLAN: Plan #Acute asthma exacerbation * She states she was recently diagnosed with asthma. He has been short of breath about a week and has progressively worsened. She has associated wheezing. * She went see her hat parts cutter machine today and was found to have abnormal PFT's and sent to the ED. * Has bilateral wheezing but chest x-ray showed no acute cardiopulmonary process. * Started on IV Solu-Medrol 40 mg every 8. Breathing treatments of bronch odilators. * Titrate oxygen as needed to maintain saturation above 90%. Currently on room air. * #History of arrhythmia: S/p ICD. Stable. #Hypertension: On lisinopril and atenolol #Depression: On venlafaxine DVT prophylaxis: lovenox Code status: full code * Patient counseled extensively about different types of CODE STATUS including full code, DNR CCA and DNR CCA. Patient elects to be full code. * Total [id number] time 17 minutes. * Total time spent on seeing patient and evaluating patient, discussion with ED doctor, discussion of plan with patient, nursing and ancillary staff, reviewing chart and documentation in the EMR: 55 minutes. Charges/Coding Visit Charges Inpatient E&M: 84035 Init Hosp L2 Procedures Hospitalists Procedures: 03146 Advncd Care Plan 30 Min
--- NOTE | 2022-08-18 12:31 | NURSING ---
DR DERECK MARKS
[2022-08-18] MEDS: Ipratropium/Albuterol Sulfate 3 ML AMPUL.NEB INHALATION ×2 (12:33→19:06)
--- NOTE | 2022-08-18 12:35 | NURSING ---
MED SURG KORAM SOB, ASTHMA
[2022-08-18] MEDS: 0.9% Normal Saline 1,000 ML 125 ML IV ×2 (15:37→23:09)
[2022-08-18] MEDS: 0.9% Saline Lock 10 ML Syringe IV (21:35)
[2022-08-18] MEDS: Atenolol 25 MG Tablet PO (23:09)
[2022-08-18] MEDS: Lisinopril 2.5 MG Tablet PO (23:09)
[2022-08-18] MEDS: tiZANidine HCl 2 MG Tablet 4 MG PO (23:10)
[2022-08-18] MEDS: Pantoprazole Sodium 40 MG Tablet PO (23:10)
[2022-08-18] MEDS: Venlafaxine XR 150 MG Capsule PO (23:17)
[2022-08-19] VITALS (12 sets, daily range): BP systolic 108–122; BP diastolic 55–65; PULSE 84–93; RESP 18–28; TEMP 36.6–37.1; O2SAT 92–99
[2022-08-19] MEDS: Ipratropium/Albuterol Sulfate 3 ML AMPUL.NEB INHALATION ×4 (00:35→19:01)
[2022-08-19] MEDS: Acetaminophen 325 MG Tablet 650 MG PO ×2 (01:03→13:30)
[2022-08-19] MEDS: 0.9% Saline Lock 10 ML Syringe IV ×3 (05:28→20:48)
[2022-08-19] MEDS: hydrOXYzine PAM 25 MG Capsule PO ×2 (09:37→16:11)
[2022-08-19] MEDS: Pantoprazole Sodium 40 MG Tablet PO ×2 (09:37→20:47)
--- NOTE | 2022-08-19 11:13 | PN_ITS ---
Subjective Subjective Patient seen and examined. She still feels short of breath, but her wheezing is improving. She denied any chest pain, palpitations, dizziness, nausea, vomiting or diarrhea. Review of systems is otheriwse negative. She has remained hemodynamically stable and remain on room air. Objective Data Objective Data Vital Signs: Vital Signs Temp Pulse Resp BP Pulse Ox O2 Del Method 98.7 F 84 18 108/55 L 99 Room Air 08/19/22 09:00 08/19/22 09:00 08/19/22 09:00 08/19/22 09:00 08/19/22 09:00 08/19/22 09:00 Oxygen Delivery Method Room Air Weight: 196 lb 9.6 oz Body Mass Index (BMI) 32.7 Intake & Output: Intake and Output for Last 24 Hours 08/17/22 08/18/22 08/19/22 23:59 23:59 23:59 Intake Total 941.67 / 941.67 866.67 / 866.67 Balance 941.67 / 941.67 866.67 / 866.67 Lab / Micro Data Result Diagrams: 08/18/22 10:33 08/18/22 10:33 Labs: Laboratory Results - last 24 hr 08/18/22 10:33: Sodium 142, Potassium 3.8, Chloride 109 H, Carbon Dioxide 22.0, Anion Gap 11, BUN 15, Creatinine 1.04 H, Estim Creat Clear Calc 57.59, Est GFR (MDRD) Af Amer 72, Est GFR (MDRD) Non-Af 59 L, BUN/Creatinine Ratio 14.4, Glucose 120 H, Calcium 9.7, Troponin I High Sens 3 08/18/22 10:33: B-Natriuretic Peptide 18.3 Micro: Microbiology 08/18/22 10:55 Nasal Secretion SARS-CoV-2 & FLU Antigen (Rapid) - Final Radiography Diagnostic Testing: Radiology Impression Chest X-Ray 08/18/22 11:05 IMPRESSION: Normal x-ray examination of the chest. Electronically Signed: Abel Lundberg MD at 11:47 EST , Physical Exam Const alert, oriented x3 and no apparent distress General Appearance: cooperative HEENT normocephalic, head/scalp atraumatic, hearing grossly normal bilaterally and moist oral mucous membranes Eyes PERRL, EOMs intact bilaterally and conjunctivae normal Neck no lymphadenopathy and supple Resp Resp Narrative: wheezing has resolved. Diminished breath sounds bibasally, no wheezes or crackles. On room air. Cardio regular rate, regular rhythm, S1 normal heart sound, S2 normal heart sound and no murmurs GI normal to inspection, nondistended, normoactive bowel sounds, soft to palpation, non-tender and non-distended Extremity normal to inspection, full ROM and no clubbing, cyanosis or edema Skin General Skin Exam: no breakdown Neuro oriented x3, CN's II-XII intact bilaterally, moves all extremities and no focal motor deficits Motor Exam: strength 5/5 throughout Psych affect normal Assessment & Plan Assessment/Plan (1) Asthma with acute exacerbation: PLAN: Plan #Acute asthma exacerbation * her breathing is improving. Wheezing has improved. Breath sound still diminished * on IV solumedrol * breathing treatment with bronchodilators * titrate oxygen to maintain sats >90% * * #History of arrhythmia: S/p ICD. Stable. #Hypertension: On lisinopril and atenolol #Depression: On venlafaxine DVT prophylaxis: lovenox Code status: full code * Patient counseled extensively about different types of CODE STATUS including full code, DNR CCA and DNR CCA. Patient elects to be full code. * Total hahu-er-xsmc time 17 minutes. * Charges/Coding Visit Charges Inpatient E&M: 12499 Subs Hosp L2
[2022-08-19] MEDS: Meloxicam 7.5 MG Tablet PO (13:17)
--- NOTE | 2022-08-19 13:37 | CPS ---
in room, pt asleep.
[2022-08-19] MEDS: Atenolol 25 MG Tablet PO (20:47)
[2022-08-19] MEDS: Lisinopril 2.5 MG Tablet PO (20:47)
[2022-08-19] MEDS: Venlafaxine XR 150 MG Capsule PO (20:48)
[2022-08-19] MEDS: tiZANidine HCl 2 MG Tablet 4 MG PO (20:48)
[2022-08-19] MEDS: guaiFENesin 10 ML UDC (200MG/10ML) PO (21:54)
[2022-08-20 01:51] VITALS: PULSE 87; RESP 24
[2022-08-20] MEDS: Ipratropium/Albuterol Sulfate 3 ML AMPUL.NEB INHALATION ×3 (01:51→13:09)
[2022-08-20 02:20] VITALS: BP 112/56; PULSE 80; RESP 18; TEMP 36.6; O2SAT 92
[2022-08-20 02:42] VITALS: RESP 18
[2022-08-20] MEDS: 0.9% Saline Lock 10 ML Syringe IV (05:41)
[2022-08-20 07:25] VITALS: PULSE 85; RESP 17
[2022-08-20 08:30] VITALS: BP 102/54; PULSE 72; RESP 16; TEMP 36.9; O2SAT 96
[2022-08-20] MEDS: Pantoprazole Sodium 40 MG Tablet PO (09:32)
--- NOTE | 2022-08-20 10:20 | CASEMGMT ---
MARIA EUGENIA MILTON notified that pt would like a FWW. Obtained rx. MARIA EUGENIA MILTON into pt room, pt sitting up in chair. Pt states that she would just like a rx for the FWW but does not want this MARIA EUGENIA MILTON to have delivered to her room prior to dc. Discussed options for companies to obtain should pt want to fill once home. Pt denies any further homegoing needs. Pt is on RA.
[2022-08-20] MEDS: Meloxicam 7.5 MG Tablet PO (11:23)
[2022-08-20] MEDS: guaiFENesin 10 ML UDC (200MG/10ML) PO (11:25)
--- NOTE | 2022-08-20 11:46 | DS.PCM_ITS ---
Providers Date of Admission: 08/18/22 Date of Discharge: 08/20/22 Primary Care Physician: Dr. Emani Rodríguez MD Reason For Visit: ACUTE ASTHMA EXACERBATION Diagnosis Discharge Diagnosis (1) Asthma with acute exacerbation: Status: Acute Code(s): J45.901 - Unspecified asthma with (acute) exacerbation Plan #Acute asthma exacerbation * her breathing is improving. Wheezing has improved. Breath sound still diminished * on IV solumedrol * breathing treatment with bronchodilators * titrate oxygen to maintain sats >90% * * #History of arrhythmia: S/p ICD. Stable. #Hypertension: On lisinopril and atenolol #Depression: On venlafaxine DVT prophylaxis: lovenox Code status: full code * Patient counseled extensively about different types of CODE STATUS including full code, DNR CCA and DNR CCA. Patient elects to be full code. * Total fyhm-nv-efox time 17 minutes. * Medications at Discharge Home Medications lisinopril 2.5 mg tablet 2.5 mg PO QHS BP 10/03/15 atenolol 25 mg tablet (Tenormin) 25 mg PO QHS heart 04/26/18 diclofenac sodium 75 mg tablet,delayed release 75 mg PO BID PRN PRN Pain 04/26/18 hydroxyzine HCl 25 mg tablet 25 mg PO Q6H PRN PRN Anxiety 05/02/19 omeprazole 40 mg capsule,delayed release 40 mg PO BID Gerd 10/29/21 venlafaxine 150 mg tablet,extended release 24 hr 150 mg PO QHS mood 06/04/22 albuterol sulfate 1.25 mg/3 mL solution for nebulization 2.5 mg (6 mL) inhalation TID-QID PRN shortness of breath or wheezing 30 days #90 mL 07/28/22 albuterol sulfate 90 mcg/actuation aerosol inhaler 1 - 2 puff inhalation Q4H PRN PRN Wheezing ##1 07/28/22 ipratropium bromide 21 mcg (0.03 %) nasal spray 2 spray intranasal BID-TID PRN allergy symptoms #30 mL 07/28/22 fluticasone propionate 115 mcg-salmeterol 21 mcg/actuation HFA inhaler (Advair HFA) puff inhalation BID sob 08/18/22 meloxicam 7.5 mg tablet 7.5 mg PO LUNCH pain 08/18/22 tizanidine 4 mg tablet 4 mg PO QHS pain 08/18/22 prednisone 20 mg tablet 40 mg PO DAILY #10 tabs 08/20/22 Hospital Course Operations None Procedures None Summary of Care Provided Minutes Spent on Discharge: 45 Hospital Course: RAZA MANCUSO, is a 52 F with a PMH as outlined who presents with a complaint of shortness of breath which had been going on for a week. She had been using her meds as outlined and says she went to see her safety sitter today. She had a pulmonary function test today and her safety sitter was concerned about her pulmonary function test so she was sent to the ED. She denied any fever, chills, chest pain, palpitations, dizziness, nausea, vomiting or diarrhea. Review of systems was otherwise negative. VItals in the ED were blood pressure 109/57, pulse rate of 79, respiratory rate of 22 and temperature of 97.5 Fahrenheit.? She was saturating at 98% on room air.? CBC was unremarkable and chemistry was also largely unremarkable apart from creatinine of 1.04.? Initial troponin was 3 and BNP was 18.3.? Chest x-ray showed clear lungs with no acute cardiopulmonary process.? EKG also showed no acute ST changes.? She was admitted to be managed for shortness of breath likely secondary to acute asthma exacerbation. She was started on breathing treatment with bronchodilators as well as IV solumedrol. Her wheezing gradually did improve and she felt better. I did speak to her safety sitter who stated that the patient's PFTs had actually been normal and showed no evidence of asthma. 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 Patient did improve and was discharged home on 08/20/2022. Of note, despite all her wheezing patient never did require oxygen during the admission. She was discharged home on 08/20/2022. She was discharged on p.o. prednisone 40 mg daily for 5 days. She is follow-up with pulmonology for her safety sitter to schedule methylcholine challenge test. Patient seen and examined prior to discharge. She had no active complaints and had an uneventful night. Review of systems otherwise negative. Labs and vitals reviewed. Home medication reviewed and reconciled. Physical Exam Const alert, oriented x3 and no apparent distress General Appearance: cooperative, comfortable and well kempt Orientation / Consciousness: awake HEENT normocephalic, head/scalp atraumatic, hearing grossly normal bilaterally and moist oral mucous membranes Mouth: oral and palatal mucosa normal Eyes PERRL, EOMs intact bilaterally and conjunctivae normal Neck no lymphadenopathy and supple Resp normal respiratory effort, no retractions, no use of accessory muscles and clear to auscultation bilaterally Resp Narrative: wheezing has resolved. Diminished breath sounds bibasally, no wheezes or crackles. On room air. Cardio regular rate, regular rhythm, S1 normal heart sound, S2 normal heart sound and no murmurs GI normal to inspection, nondistended, normoactive bowel sounds, soft to palpation, non-tender and non-distended Extremity normal to inspection, full ROM and no clubbing, cyanosis or edema Skin no rashes or lesions noted General Skin Exam: no breakdown Neuro oriented x3, CN's II-XII intact bilaterally, moves all extremities and no focal motor deficits Motor Exam: strength 5/5 throughout Psych affect normal Weight / BMI Weight Weight: 196 lb 9.6 oz Body Mass Index (BMI) 32.7 ABG / Lab / Microbiology Data Result Diagrams: 08/18/22 10:33 08/18/22 10:33 Microbiology: Microbiology 08/18/22 10:55 Nasal Secretion SARS-CoV-2 & FLU Antigen (Rapid) - Final D/C Instructions Discharge Diet: Low fat / Low cholesterol Discharge Activity: Return to Normal Activity Meaningful Use Info Meaningful Use Diagnoses (Choose all that apply): None applicable Discharge Plan Admission Admit Date/Time: 08/18/22 12:34 Primary Reason for Your Visit: wheezing Attending Provider: Shante Ramey Primary Care Provider: Emani Rodríguez Instructions Forms: Work / School Excuse Patient Instructions: ED Asthma, Acute (Adult), ED Bronchitis with Wheezing (Child) Discharge Orders/Prescriptions Prescriptions: New prednisone 20 mg tablet 40 mg PO DAILY Qty: 10 0RF Continued venlafaxine 150 mg tablet extended release 24hr 150 mg PO QHS albuterol sulfate 90 mcg/actuation HFA aerosol inhaler 1 - 2 puff inhalation Q4H PRN PRN (Reason: Wheezing) Qty: 1 0RF albuterol sulfate 1.25 mg/3 mL solution for nebulization 2.5 mg inhalation TID-QID PRN (Reason: shortness of breath or wheezing) 30 Days Qty: 90 6RF ipratropium bromide 21 mcg (0.03 %) spray,non-aerosol 2 spray intranasal BID-TID PRN (Reason: allergy symptoms) Qty: 30 3RF Rx Instructions: administer into each nostril before bed, and in AM for nasal congestions and drip symptoms. lisinopril 2.5 MG tablet 2.5 mg PO QHS Label Comments: HEART atenolol [Tenormin] 25 MG tablet 25 mg PO QHS diclofenac sodium 75 MG tablet 75 mg PO BID PRN PRN (Reason: Pain) hydroxyzine HCl 25 MG tablet 25 mg PO Q6H PRN PRN (Reason: Anxiety) Hold Instructions: Resume on 05/07/22. Label Comments: TAKE 1 TABLET BY MOUTH EVERY 6 HOURS NEEDED FOR ANXIETY omeprazole 40 mg Capsule,Delayed Release(Dr/Ec) 40 mg PO BID tizanidine 4 mg tablet 4 mg PO QHS Label Comments: TAKE 1 TABLET BY MOUTH ONCE DAILY FOR 28 DAYS meloxicam 7.5 mg tablet 7.5 mg PO LUNCH Label Comments: TAKE 1 TABLET BY MOUTH ONCE DAILY WITH FOOD fluticasone propion-salmeterol [Advair HFA] 115-21 mcg/actuation HFA aerosol inhaler INHALATION BID Label Comments: INHALE 2 PUFFS BY MOUTH TWICE DAILY INSTRUCTED Referrals / Follow Up: Derek Schafer MD [Med Staff - Active Staff] - Within 2 Weeks Emani Rodríguez MD [Primary Care Provider] - Within 2 Weeks Disposition Disposition (needs filled in before D/C Order can be placed): Home, Self Care Charges/Coding Visit Charges Inpatient E&M: 41961 Subs Hosp L2
[2022-08-20 13:00] VITALS: PULSE 79; RESP 20
== END 2022-08-20 13:48 | disposition home or self-care (01) ==
LOC: ED 12:34 → MS3 13:12
PROVIDERS: Admitting Provider Student in an Organized Health Care Education/Training Program; Emergency Provider Emergency Medicine; PCP Internal Medicine; Visit Provider Student in an Organized Health Care Education/Training Program
DX: J45.901 Unspecified asthma with (acute) exacerbation (principal); I50.9 Heart failure, unspecified; I42.8 Other cardiomyopathies; I11.0 Hypertensive heart disease with heart failure; I48.91 Unspecified atrial fibrillation; Z79.51 Long term (current) use of inhaled steroids; F32.A Depression, unspecified; Z95.810 Presence of automatic (implantable) cardiac defibrillator; Z79.899 Other long term (current) drug therapy
CPT/HCPCS: 99285; 71045; 80048; 83880; 84484; 85025; 87428; 93005; 94640; 94668; 96361; 96374; 96376; 97162; 97530; 97802; 99221; 99252; J7030; A4216; G0378; G0463

== ENCOUNTER → 2022-08-18 | Outpatient (CLI) | payer OTHER, MEDICAID, SELFPAY ==
--- NOTE | 2022-08-18 10:12 | CPS ---
Patient just received an albuterol neb treatment in office with Dr. Schafer. Sent over here for a post bronchodilator spirometry test, lung volumes and DLCO testing.
--- NOTE | 2022-08-18 10:27 | PFT_ITS ---
This 52-year-old woman woman had urgent pulmonary function testing today, sent to the lab from the pulmonary office. She has asthma diagnosis which has been unresponsive to outpatient treatment and moderate dose ICS/LABA combination. She received an in office nebulizer treatment, therefore no prebronchodilator or airway reactivity testing is possible. Spirometry shows no evidence of airway obstruction in the large or small airways. He the FVC is 76% predicted FEV1 75% predicted FEV1/FVC 78%. FEF 2575 is 76% predicted. Review of the flow volume loop morphology corroborates no S ignificant obstruction. There is likely an effort related delay in the peak flow evident on the flow volume loop, which contributes to the likely effort related reduction in forced vital capacity and FEV1. Lung volume studies by plethysmography show no evidence of restriction. The total lung capacity is 101% predicted. The functional residual capacity is slightly above normal at 123% predicted as is the residual volume of 124% predicted. Diffusing capacity and DL/VA are normal. Compared to her prior study dated 08/19/2021, the FEV1, FVC, and FEF 25/75 increased decreased by 4 to 10%, which is below the level of significance. There was no significant change in the lung volumes or DLCO. Derek Schafer MD, [facility]
== END | disposition home or self-care (01) ==
LOC: PSN 09:04
PROVIDERS: PCP Internal Medicine; Visit Provider Internal Medicine
DX: J45.901 Unspecified asthma with (acute) exacerbation (principal)
CPT/HCPCS: 94010; 94726; 94729

== ENCOUNTER → 2022-08-20 | Outpatient (CLI) | payer OTHER, MEDICAID, SELFPAY | END | disposition home or self-care (01) | LOC: SL 20:05 | PROVIDERS: PCP Internal Medicine; Visit Provider Internal Medicine | DX: R06.83 Snoring (principal); G47.19 Other hypersomnia | CPT/HCPCS: 95810 ==

== ENCOUNTER → 2022-08-24 | Outpatient (CLI) | payer OTHER, MEDICAID, SELFPAY ==
[2022-08-24 16:31] LABS: Bacteria 0 SEEN /hpf (None Seen); Red Blood Cells-Urine 0 SEEN /hpf (0-5); Squamous Epithelial Cells - UA 0 SEEN /hpf (5-10)
[2022-08-24 17:11] LABS: Color, Urine Yellow (Yellow); Glucose, Dipstick Normal (Normal); Ketone-Dipstick 5 mg/dl (Negative); Leukocyte Esterase-Dipstick 100 /ul (Negative); Nitrite-Dipstick Negative (Negative); Occult Blood-Urine Negative /ul (Negative); Protein-Dipstick 30 mg/dl (Negative); Urine Bilirubin Dipstick Negative (Negative); Urine Clarity Clear (Clear); Urine Urobilinogen 1 mg/dl (Normal)
[2022-08-24 17:30] LABS: Mucous, Urine 1+ /hpf (<or=2+); White Blood Cells 10-25 SEEN /hpf (0-5)
[2022-08-24 17:31] LABS: Calcium Oxalate Crystals Ur 1+ /hpf (<or=2+)
[2022-08-24 17:32] LABS: Anion Gap 10 (5-15); BUN 20 mg/dL (7-18); BUN/Creat Ratio 15.6 RATIO (10-20); Calcium,Total 9.4 mg/dL (8.5-10.1); Chloride 103 mmol/L (98-107); Creatinine, Serum 1.28 mg/dL (0.55-1.02); EST Glomerular Filtration Rate 47 mL/min (>60); Est Glom Filt Rate - Afr Amer 56 mL/min (>60); Glucose 176 mg/dL (74-106); Sodium Level 141 mmol/L (136-145)
== END | disposition home or self-care (01) ==
LOC: LAB 16:27
PROVIDERS: PCP Internal Medicine; Visit Provider Internal Medicine
DX: R79.89 Other specified abnormal findings of blood chemistry (principal)
CPT/HCPCS: 36415; 80048; 81001

== ENCOUNTER → 2022-08-31 | Outpatient (CLI) | payer OTHER, MEDICAID, SELFPAY ==
[2022-08-31 09:03] LABS: Anion Gap 6 (5-15); BUN 12 mg/dL (7-18); BUN/Creat Ratio 12.2 RATIO (10-20); Calcium,Total 9.1 mg/dL (8.5-10.1); Chloride 104 mmol/L (98-107); Creatinine, Serum 0.99 mg/dL (0.55-1.02); EST Glomerular Filtration Rate 63 mL/min (>60); Est Glom Filt Rate - Afr Amer 76 mL/min (>60); Glucose 205 mg/dL (74-106); Potassium 3.9 mmol/L (3.5-5.1); Sodium Level 140 mmol/L (136-145)
== END | disposition home or self-care (01) ==
LOC: LAB 08:06
PROVIDERS: PCP Internal Medicine; Referring Provider Internal Medicine; Visit Provider Internal Medicine
DX: R79.89 Other specified abnormal findings of blood chemistry (principal)
CPT/HCPCS: 36415; 80048

== ENCOUNTER → 2022-09-04 | Outpatient (CLI) | payer OTHER, MEDICAID, SELFPAY ==
--- NOTE | 2022-09-04 11:56 | US_ITS ---
STUDY: RENAL ULTRASOUND - COMPLETE REASON FOR EXAM: Female, 52 years old. Elevated creatinine TECHNIQUE: Ultrasound evaluation of the kidneys was performed with real-time and static spencer-scale imaging. COMPARISON: None. FINDINGS: RIGHT KIDNEY: Normal location of the right kidney, which is normal in size. The right kidney measures 11.5 cm x 5.9 cm x 3.8 cm. There is a normal cortex of the right kidney. The renal cortex measures 1.2 cm. There is no right renal mass or cyst. There are no right renal calculi. There is no right hydronephrosis. DISTAL RIGHT URETER: There is non-visualization of the distal right ureter. There is no demonstrated right ureterovesical junction calculus. There is a visualized right ureteral jet. LEFT KIDNEY: Normal location of the left kidney, which is normal in size. The left kidney measures 11 cm x 5.7 cm x 5.8 cm. There is a normal cortex of the left kidney. The renal cortex measures 1.9 cm. There is no left renal mass or cyst. There are no left renal calculi. There is no left hydronephrosis. DISTAL LEFT URETER: There is non-visualization of the distal left ureter. There is no demonstrated left ureterovesical junction calculus. There is a visualized left ureteral jet. BLADDER: The distended urinary bladder has a volume of 28 ml. There is a normal wall thickness of the distended urinary bladder. There is no demonstrated mass within the urinary bladder. There are no demonstrated bladder calculi. US/Kidney and Bladder IMPRESSION: Normal ultrasound of the kidneys and urinary bladder. Electronically Signed: Abel Lundberg MD at 13:06 EDT ,
== END | disposition home or self-care (01) ==
LOC: US 11:55
PROVIDERS: PCP Internal Medicine; Visit Provider Internal Medicine
DX: R79.89 Other specified abnormal findings of blood chemistry (principal)
CPT/HCPCS: 76770

== ENCOUNTER → 2022-11-20 | Outpatient (CLI) | payer OTHER, MEDICAID, SELFPAY ==
--- NOTE | 2022-11-20 07:56 | ECHOCS_ITS ---
Reason For Study: DYSPNEA Procedure This was a 2D Doppler, Color Flow transthoracic echocardiogram. Exam performed in department. Left Ventricle Normal LV size. Left ventricular systolic function is normal. The estimated ejection fraction is 65 %. Stage 2 diastolic dysfunction. No regional wall motion abnormalities noted. Right Ventricle Normal RV size. ICD or pacer leads identified within the right ventricle. Normal systolic function. Atria Normal left atrium. Normal right atrium. Mitral Valve Normal mitral valve. Tricuspid Valve Normal tricuspid valve. Mild (1+) tricuspid valve insufficiency. Pulmonary artery systolic pressure is 28 mmHg. Aortic Valve Normal aortic valve. Trisinus/trileaflet aortic valve. Pulmonic Valve Normal pulmonic valve. Great Vessels Normal aortic root. The pulmonary artery is normal size. Normal inferior vena cava. Pericardium/Pleural No pericardial effusion. MMode/2D Measurements & Calculations LVIDd: 4.6 cm IVSd: 0.77 cm Ao root diam: 2.5 cm LVIDs: 3.1 cm LVPWd: 0.97 cm FS: 33.0 % LAV(MOD-bp): 48.0 ml LVAd ap4: 24.9 cm2 SV(MOD-sp4): 39.4 ml LAV(MOD-bp) Indexed: 24.9 ml/m2 LVLd ap4: 7.5 cm LAV(MOD-sp2): 47.8 ml EDV(MOD-sp4): 70.6 ml LAV(MOD-sp4): 43.1 ml EDV(sp4-el): 70.2 ml LVAs ap4: 15.4 cm2 LVLs ap4: 6.5 cm ESV(MOD-sp4): 31.2 ml ESV(sp4-el): 30.6 ml EF(MOD-sp4): 55.8 % EF(sp4-el): 56.4 % SV(sp4-el): 39.6 ml LA A4 area: 16.1 cm2 LA dimension(2D): 3.0 cm RA A4 area: 13.0 cm2 Time Measurements MV dec time: 0.20 sec Doppler Measurements & Calculations MV E max loki: 78.5 cm/sec Lat Peak E' Loki: 13.2 cm/sec Med Peak E' Loki: 9.2 cm/sec MV A max loki: 54.7 cm/sec E/E' lat: 5.9 E/E' med: 8.6 MV E/A: 1.4 MV V2 max: 92.0 cm/sec Ao V2 max: 121.4 cm/sec MV max P.4 mmHg MV dec slope: 388.6 cm/sec2 Ao max P.9 mmHg MV V2 mean: 52.8 cm/sec Ao V2 mean: 85.0 cm/sec MV mean P.3 mmHg Ao mean P.2 mmHg MV V2 VTI: 27.8 cm Ao V2 VTI: 27.6 cm AV (velocity ratio): 0.93 LV V1 max: 126.5 cm/sec PA V2 max: 121.6 cm/sec TR max loki: 240.9 cm/sec LV V1 max P.4 mmHg PA V2 mean: 80.7 cm/sec TR max P.2 mmHg LV V1 mean P.3 mmHg LV V1 mean: 83.4 cm/sec LV V1 VTI: 25.6 cm ECHO/Echo Complete Interpretation Summary Normal LV size. Left ventricular systolic function is normal. The estimated ejection fraction is 65 %. Stage 2 diastolic dysfunction. Pulmonary artery systolic pressure is 28 mmHg. Ordering Physician: Marc Salazar Referring Physician: Marc Salazar Performed By: Rupa Johnson RCS
== END | disposition home or self-care (01) ==
PROVIDERS: PCP Internal Medicine; Referring Provider Internal Medicine Critical Care Medicine; Visit Provider Internal Medicine Critical Care Medicine
DX: I50.9 Heart failure, unspecified (principal); R06.00 Dyspnea, unspecified; R06.02 Shortness of breath
CPT/HCPCS: 93306

== ENCOUNTER → 2023-02-18 | Outpatient (CLI) | payer BC, MEDICAID, SELFPAY ==
[2023-02-18 11:42] LABS: Anion Gap 7 (5-15); BUN 13 mg/dL (7-18); BUN/Creat Ratio 13.2 RATIO (10-20); Calcium,Total 9.1 mg/dL (8.5-10.1); Chloride 100 mmol/L (98-107); Creatinine, Serum 0.98 mg/dL (0.55-1.02); EST Glomerular Filtration Rate 63 mL/min (>60); Est Glom Filt Rate - Afr Amer 76 mL/min (>60); Glucose 303 mg/dL (74-106); Potassium 3.7 mmol/L (3.5-5.1); Sodium Level 135 mmol/L (136-145)
[2023-02-18 12:26] LABS: BNP,B-Type NATRIURETIC PEPTIDE 19.6 pg/mL (0-100)
== END | disposition home or self-care (01) ==
LOC: LAB 10:22
PROVIDERS: PCP Internal Medicine; Referring Provider Internal Medicine Cardiovascular Disease; Visit Provider Internal Medicine Cardiovascular Disease
DX: R06.02 Shortness of breath (principal); R07.89 Other chest pain; Z95.810 Presence of automatic (implantable) cardiac defibrillator
CPT/HCPCS: 36415; 80048; 83880

== ENCOUNTER → 2023-02-22 | Outpatient (CLI) | payer BC, MEDICAID, SELFPAY ==
[2023-02-22 08:00] LABS: Absolute Neutrophil Count 4.2 X10^3/uL (2.0-7.7); Basophil# 0.05 X10^3/uL; Basophil% 0.7 % (0-1); Eosinophil# 0.14 X10^3/uL; Eosinophils% 2.1 % (0-5); Hematocrit 41.4 % (37-47); Hemoglobin 13.4 g/dL (12.0-15.0); Lymphocyte % 26.7 % (19-41); Mean Corp Hgb Conc 32.4 g/dL (32-36); Mean Corpuscular Volume 83.3 fL (81-99); Mean Platelet Vol. 11.2 fl (6.2-12.0); Monocyte# 0.53 X10^3/uL; Monocyte% 7.9 % (0-10); NRBC Flagged by Analyzer 0 % (0-5); Neutrophil # 4.19 X10^3/uL (2.7-7.7); Neutrophil % 62.3 % (47-70); Platelet Count 269 K/mm3 (150-450); RBC Distribution Width CV 14.4 % (11.6-14.6); RBC Distribution Width SD 43.6 fl (35.1-43.9); Red Blood Count 4.97 M/mm3 (4.2-5.4); White Blood Count 6.7 K/mm3 (4.4-11.0)
[2023-02-22 08:31] LABS: Anion Gap 9 (5-15); BUN 17 mg/dL (7-18); Calcium,Total 9.5 mg/dL (8.5-10.1); Chloride 100 mmol/L (98-107); Cholesterol 267 mg/dL (200); Creatinine, Serum 1.21 mg/dL (0.55-1.02); EST Glomerular Filtration Rate 50 mL/min (>60); Est Glom Filt Rate - Afr Amer 60 mL/min (>60); Glucose 338 mg/dL (74-106); High Density Lipoprotein 47 mg/dL; Potassium 3.8 mmol/L (3.5-5.1); Sodium Level 138 mmol/L (136-145); Triglycerides 188 mg/dL; Very Low Density Lipoprotein 38 mg/dL (5-40)
[2023-02-22 08:44] LABS: Thyroid Stim Hormone (TSH) 5.56 uIU/mL (0.358-3.74)
[2023-02-22 09:22] LABS: Hemoglobin A1c 10.1 % (3.8-5.6)
[2023-02-22 10:28] LABS: Vitamin D,25 Hydroxy 33.2 ng/mL
[2023-02-22 13:27] LABS: Free T3 3.5 pg/mL (2.18-3.98); T4 Free Direct 1.07 ng/dL (0.76-1.46)
== END | disposition home or self-care (01) ==
LOC: LAB 07:21
PROVIDERS: PCP Internal Medicine; Referring Provider Internal Medicine Cardiovascular Disease; Visit Provider Internal Medicine Cardiovascular Disease
DX: R79.89 Other specified abnormal findings of blood chemistry (principal); E11.9 Type 2 diabetes mellitus without complications; E55.9 Vitamin D deficiency, unspecified; Z13.220 Encounter for screening for lipoid disorders
CPT/HCPCS: 36415; 80048; 80061; 82306; 83036; 83525; 84439; 84443; 84481; 85025

== ENCOUNTER 2023-02-23 09:53 | Emergency (ER) | payer BC, MEDICAID, SELFPAY ==
[2023-02-23 09:54] VITALS: BP 137/78; PULSE 120; RESP 14; TEMP 36.4; O2SAT 98; BMI 31.6
--- NOTE | 2023-02-23 10:14 | EDS_ITS ---
HPI History of Present Illness Chief Complaint: Headache Informant: patient Onset/Context/Timing Onset: Month(s) Context: Gradual Timing: Intermittent Quality -Headache: Positive for Throbbing Location: Bilateral temporal area Worsened by: Nothing Relieved by: Nothing Associated Symptoms/Injury Associated Symptoms: Positive for Nausea and Photophobia; Negative for Fever, Vomiting, Sore Throat, Sinus Pressure, Numbness, Tingling, Preceding Aura, Visual Changes, Blurred Vision or Visual Loss Injury - BLACKBURN: Negative for Direct Trauma Narrative Narrative: Patient presents with headache, chest pain, abdominal pain, and nausea that has been getting progressively worse over the past few months. Patient states she saw her primary care physician yesterday who did some blood work. Patient states she was then referred to the emergency department today. Patient states her headache comes and goes. Patient states it is over the temporal areas. Patient describes it as a throbbing. Patient states it comes on gradually. Patient denies any fevers or chills. Patient admits to nausea but denies any vomiting. Patient also admits to some pain in her chest and abdomen. Patient states I just do not feel right. PFSH PFSH Medical History A-fib Abnormal PFTs Allergic rhinitis due to allergen Arthritis Asthma with acute exacerbation Back injury Biventricular ICD (implantable cardioverter-defibrillator) in place (09/10/20) Congestive heart failure (CHF) DDD (degenerative disc disease), lumbar Excessive daytime sleepiness Heart disease History of cardiomyopathy ICD (implantable cardioverter-defibrillator) in place Left bundle branch block Nonischemic cardiomyopathy SOB (shortness of breath) Home Medications atenolol 25 mg tablet (Tenormin) 25 mg PO QHS heart 04/26/18 [History Last Taken 08/17/22] hydroxyzine HCl 25 mg tablet 25 mg PO Q6H PRN PRN Anxiety 05/02/19 [History Last Taken Unknown] albuterol sulfate 1.25 mg/3 mL solution for nebulization 2.5 mg (6 mL) inhalation TID-QID PRN shortness of breath or wheezing 30 days #90 mL 07/28/22 [Rx Last Taken 08/18/22] albuterol sulfate 90 mcg/actuation aerosol inhaler 1 - 2 puff inhalation Q4H PRN PRN Wheezing ##1 07/28/22 [Rx Last Taken 08/17/22] ipratropium bromide 21 mcg (0.03 %) nasal spray 2 spray intranasal BID-TID PRN allergy symptoms #30 mL 07/28/22 [Rx Last Taken 08/18/22] venlafaxine 150 mg tablet,extended release 24 hr 150 mg PO QHS mood #90 tabs 09/17/22 [Rx Last Taken Unknown] budesonide-formoterol HFA 160 mcg-4.5 mcg/actuation aerosol inhaler (Symbicort) 2 puff inhalation BID #1 ea 12/28/22 [Rx Last Taken Unknown] omeprazole 40 mg capsule,delayed release 40 mg PO BID Gerd #180 caps 01/20/23 [Rx Last Taken Unknown] furosemide 20 mg tablet 20 mg PO DAILY #90 tabs 02/18/23 [Rx Last Taken Unknown] lisinopril 2.5 mg tablet 2.5 mg PO QHS BP #90 tabs 02/18/23 [Rx Last Taken Unknown] potassium chloride 10 mEq tablet,extended release 10 meq PO DAILY #90 tabs 02/18/23 [Rx Last Taken Unknown] metformin 500 mg tablet 500 mg PO BID #20 tabs 02/23/23 [Rx Last Taken Unknown] Allergy/AdvReac Type Severity Reaction Status Date / Time naproxen Allergy Hives Verified 02/23/23 09:54 vancomycin Allergy Rash Verified 02/23/23 09:54 carvedilol AdvReac Upset Verified 02/23/23 09:54 Stomach Family History Grandmother CVA (cerebral vascular accident) Mother Colon cancer High cholesterol Other Bladder cancer Cancer Diabetes Hypertension Surgical History History of ankle surgery History of appendectomy History of cholecystectomy History of neck surgery Status post biventricular pacemaker Social History Smoking Status: Never smoker alcohol intake: never substance use type: does not use caffeine: Yes (sometimes) Type: carbonated beverages, coffee and tea ROS ROS ED Constitutional Constitutional ED: Denies chills or fever(s) Eyes Eyes: Denies blurry vision or change in vision ENT ENT ED: Denies rhinorrhea or sore throat Cardiovascular Cardiovascular: Reports chest pain; Denies palpitations Respiratory/Chest Respiratory/Chest: Denies cough or dyspnea Gastrointestinal Gastrointestinal: Reports abdominal pain and nausea; Denies vomiting Genitourinary Genitourinary ED: Reports urinary frequency; Denies dysuria or hematuria Musculoskeletal Musculoskeletal: Reports back pain; Denies neck pain Integumentary Denies abscess or rash Neurologic Neurologic: Reports headache(s); Denies weakness Allergic/Immunologic Allergic/Immunologic ED: Denies mouth swelling or urticaria EXAM Physical Exam Const Vital Signs: 02/23/23 09:54 02/23/23 10:44 02/23/23 11:53 Temperature 97.6 F L Temperature Source Temporal Pulse Rate 120 H 64 Respiratory Rate 14 14 Blood Pressure 137/78 H 128/78 H Blood Pressure Mean 97 94 Pulse Ox 98 98 Oxygen Delivery Method Room Air Room Air Room Air Positive well nourished and well developed General Appearance ED: well developed and NAD HEENT Reports normocephalic and moist mucous membranes Neck supple and no JVD Resp normal respiratory effort and clear to auscultation bilaterally Cardio regular rate and regular rhythm GI non-tender and non-distended Palpation: soft Extremity normal to inspection and full ROM Neuro oriented x3, CN's II-XII intact bilaterally and no sensory deficits noted Ashlyn Coma Scale: document GCS findings Spontaneous Obeys Commands Oriented 15 Sensorium / Orientation: awake and alert Speech: speech normal Motor Exam: strength 5/5 throughout Psych mental status grossly normal MDM MDM MDM Narrative Medical decision making narrative: Differential: Migraine headache, electrolyte abnormality, cardiac dysrhythmia, cardiac ischemia, viral illness, urinary tract infection, hyperglycemia, and intracranial bleeding. CT scan of the brain will be obtained to assess for intracranial bleeding. EKG will be obtained to assess for cardiac dysrhythmia and cardiac ischemia. CBC will be obtained to assess for leukocytosis and anemia. Basic metabolic profile will be obtained to assess for electrolyte abnormality, glucose, and renal function. Urinalysis will be obtained to assess for urinary tract infection. Lab Data Attestation: I reviewed the patient's lab results. Lab results narrative: CBC was reviewed and was within normal limits. Basic metabolic profile was reviewed. Glucose was 368. Anion gap was normal. CO2 was normal. High- sensitivity troponin was reviewed and was normal at 4. Hemoglobin A1c was reviewed and was elevated at 10.2. Urinalysis was reviewed. There is no evidence of urinary tract infection or hematuria. Labs: Laboratory Results - last 24 hr 02/23/23 02/23/23 10:50 11:45 WBC 6.8 RBC 5.14 Hgb 13.6 Hct 41.8 MCV 81.3 MCH 26.5 L MCHC 32.5 RDW Std Deviation 42.1 RDW Coeff of Irma 14.4 Plt Count 234 MPV 11.3 Immature Gran % (Auto) 0.400 Neut % (Auto) 74.3 H Lymph % (Auto) 17.2 L [place] % (Auto) 6.2 Eos % (Auto) 1.3 Baso % (Auto) 0.6 Absolute Neuts (auto) 5.0 Absolute Lymphs (auto) 1.17 Nucleated RBC % 0 Sodium 134 L Potassium 3.6 Chloride 96 L Carbon Dioxide 30.0 Anion Gap 8 BUN 15 Creatinine 1.09 H Estim Creat Clear Calc 54.33 Est GFR (MDRD) Af Amer 68 Est GFR (MDRD) Non-Af 56 L BUN/Creatinine Ratio 13.8 Glucose 368 H Hemoglobin A1c 10.2 H Calcium 9.5 Troponin I High Sens 4 Urine Color Straw Urine Clarity Sl. Cloudy Urine pH 7.0 Ur Specific [place] 1.010 Urine Protein Negative Urine Glucose (UA) 250 H Urine Ketones 5 H Urine Occult Blood Negative Urine Nitrite Negative Urine Bilirubin Negative Urine Urobilinogen Normal Ur Leukocyte Esterase Negative Urine RBC 0 SEEN Urine WBC 0 SEEN Ur Squamous Epith Cells 0-5 SEEN Urine Bacteria 0 SEEN Urine Mucus 0 SEEN Radiography Diagnostic Testing: Clinical Impression(s) from Imaging Studies Brain CT 02/23/23 10:23 IMPRESSION: Normal unenhanced CT scan of the brain. Electronically Signed: Abel Lundberg MD at 11:22 EDT , CT scan of the brain was obtained. There is no acute intracranial abnormality. This was interpreted by the radiologist and was also independently reviewed by myself. EKG Initial EKG: Attestation: I personally reviewed and interpreted this EKG as follows: Interpretation: No Acute Injury Pattern and Paced Comments: EKG was obtained. On my independent interpretation, it showed an atrial sensed, ventricular paced rhythm with a rate of 115. TN interval, QRS interval, and QTc intervals were all normal. [place] was normal. There are no acute ST or T wave changes. Prior EKG tracings: available for review Prior: Unchanged (08/18/2022) Treatment and Re-Evaluation Narrative: Patient was given IV fluids, Reglan, and Benadryl. Patient states her headache improved after this. Patient was advised of her findings. Patient was advised that this may be related to her elevated glucose. Case was discussed with Dr. Marin. He recommended starting the patient on oral hypoglycemics. Patient was given a prescription for metformin. He will follow-up with the patient in his office as scheduled this week. Patient and spouse understood and were agreeable with the plan. All questions were answered. Discharge Plan Triage Chief Complaint: Headache ED Provider: Mainor Wallace Dx/Rx/DC Orders Clinical Impression: Type 2 diabetes mellitus, Hyperglycemia Instructions: ED Diabetic Hyperglycemia Prescriptions: New metformin 500 mg tablet 500 mg PO BID Qty: 20 0RF No Action albuterol sulfate 90 mcg/actuation HFA aerosol inhaler 1 - 2 puff inhalation Q4H PRN PRN (Reason: Wheezing) Qty: 1 0RF albuterol sulfate 1.25 mg/3 mL solution for nebulization 2.5 mg inhalation TID-QID PRN (Reason: shortness of breath or wheezing) 30 Days Qty: 90 6RF ipratropium bromide 21 mcg (0.03 %) spray,non-aerosol 2 spray intranasal BID-TID PRN (Reason: allergy symptoms) Qty: 30 3RF Rx Instructions: administer into each nostril before bed, and in AM for nasal congestions and drip symptoms. furosemide 20 mg tablet 20 mg PO DAILY Qty: 90 2RF potassium chloride 10 mEq tablet extended release 10 meq PO DAILY Qty: 90 2RF atenolol [Tenormin] 25 MG tablet 25 mg PO QHS hydroxyzine HCl 25 MG tablet 25 mg PO Q6H PRN PRN (Reason: Anxiety) Hold Instructions: Resume on 05/07/22. Patient Comments: TAKE 1 TABLET BY MOUTH EVERY 6 HOURS NEEDED FOR ANXIETY venlafaxine 150 mg tablet extended release 24hr 150 mg PO QHS Qty: 90 3RF budesonide-formoterol [Symbicort] 160-4.5 mcg/actuation HFA aerosol inhaler 2 puff inhalation BID Qty: 1 3RF Rx Instructions: administer with spacer, rinse mouth after each use omeprazole 40 mg capsule,delayed release(DR/EC) 40 mg PO BID Qty: 180 3RF lisinopril 2.5 mg tablet 2.5 mg PO QHS Qty: 90 2RF Primary Care Provider: Emani Rodríguez Referrals: Emani Rodríguez MD [Primary Care Provider] - [facility] appointment Disposition Disposition: Home, Self Care
--- NOTE | 2023-02-23 10:23 | CT_ITS ---
STUDY: CT BRAIN WITHOUT CONTRAST REASON FOR EXAM: Female, 53 years old. One-day history of headaches. History of migraine. RADIATION DOSAGE (If Supplied By Facility): CTDIvol = ( 44.99 ) mGy, DLP = ( 812.98 ) mGycm TECHNIQUE: Transaxial CT imaging of the brain was performed without administration of intravenous contrast material. Individualized dose optimization techniques were used for this CT. COMPARISON: Comparison is made with prior study December 28, 2018. FINDINGS: Normal soft tissue structures. Normal calvarium. Normal size ventricles and extra-axial spaces for the patient''s age. Normal white matter tracts of the cerebral hemispheres. Normal basal ganglia and thalami. Stable punctate calcification in the right basal ganglion. Normal brainstem. Normal cerebellum. There is no intracranial hemorrhage. There are no findings of an acute ischemic infarction. Normal visualized paranasal sinuses. CT/Brain/Head without Contrast IMPRESSION: Normal unenhanced CT scan of the brain. Electronically Signed: Abel Lundberg MD at 11:22 EDT ,
--- NOTE | 2023-02-23 10:24 | EKG12_ITS ---
Test Reason : CP/HEADACH Blood Pressure : / mmHG Vent. Rate : 115 BPM Atrial Rate : 115 BPM P-R Int : 124 ms QRS Dur : 102 ms QT Int : 366 ms P-R-T Axes : 059 118 017 degrees QTc Int : 506 ms Atrial-sensed ventricular-paced rhythm Biventricular pacemaker detected Abnormal ECG Confirmed by AMRIK WRIGHT, TIFFANY ([id number]), commissioning editor IESHA HERRERA ([id number]) on 02/25/2023 1:33:11 PM Referred By: ES/RU Confirmed By:TIFFANY ROWLEY MD
[2023-02-23] MEDS: DiphenhydrAMINE 50 MG/ML Syringe 25 MG IV (10:52)
[2023-02-23] MEDS: 0.9% Normal Saline (1000mL) 1,000 ML 1000 ML IV (10:52)
[2023-02-23] MEDS: Metoclopramide 10 MG/2 ML Vial IV (10:53)
[2023-02-23 11:02] LABS: Absolute Lymphocyte Count 1.17 X10^3/uL (0.83-4.51); Basophil# 0.04 X10^3/uL; Basophil% 0.6 % (0-1); Eosinophil# 0.09 X10^3/uL; Eosinophils% 1.3 % (0-5); Hematocrit 41.8 % (37-47); Hemoglobin 13.6 g/dL (12.0-15.0); Lymphocyte # 1.17 X10^3/ul (0.83-4.51); Lymphocyte % 17.2 % (19-41); Mean Corp Hgb Conc 32.5 g/dL (32-36); Mean Corpuscular Hgb 26.5 pg (27.0-32.0); Mean Corpuscular Volume 81.3 fL (81-99); Mean Platelet Vol. 11.3 fl (6.2-12.0); Monocyte# 0.42 X10^3/uL; Monocyte% 6.2 % (0-10); NRBC Flagged by Analyzer 0 % (0-5); Neutrophil # 5.04 X10^3/uL (2.7-7.7); Neutrophil % 74.3 % (47-70); Platelet Count 234 K/mm3 (150-450); RBC Distribution Width CV 14.4 % (11.6-14.6); RBC Distribution Width SD 42.1 fl (35.1-43.9); Red Blood Count 5.14 M/mm3 (4.2-5.4); White Blood Count 6.8 K/mm3 (4.4-11.0)
[2023-02-23 11:27] LABS: Anion Gap 8 (5-15); BUN 15 mg/dL (7-18); BUN/Creat Ratio 13.8 RATIO (10-20); Calcium,Total 9.5 mg/dL (8.5-10.1); Chloride 96 mmol/L (98-107); Creatinine, Serum 1.09 mg/dL (0.55-1.02); EST Glomerular Filtration Rate 56 mL/min (>60); Est Glom Filt Rate - Afr Amer 68 mL/min (>60); Estimated Creatinine Clearance 54.33 ml/min; Glucose 368 mg/dL (74-106); Potassium 3.6 mmol/L (3.5-5.1); Sodium Level 134 mmol/L (136-145); Troponin-I HS 4 pg/mL (3.0-54.0)
[2023-02-23 11:53] VITALS: BP 128/78; PULSE 64; RESP 14; O2SAT 98
[2023-02-23 11:54] LABS: Bacteria 0 SEEN /hpf (None Seen); Mucous, Urine 0 SEEN /hpf (<or=2+); Red Blood Cells-Urine 0 SEEN /hpf (0-5); White Blood Cells 0 SEEN /hpf (0-5)
[2023-02-23 11:56] LABS: Color, Urine Straw (Yellow); Glucose, Dipstick 250 mg/dl (Normal); Ketone-Dipstick 5 mg/dl (Negative); Leukocyte Esterase-Dipstick Negative /ul (Negative); Nitrite-Dipstick Negative (Negative); Occult Blood-Urine Negative /ul (Negative); Protein-Dipstick Negative (Negative); Urine Bilirubin Dipstick Negative (Negative); Urine Clarity Sl. Cloudy (Clear); Urine Urobilinogen Normal (Normal)
[2023-02-23 11:57] LABS: Hemoglobin A1c 10.2 % (3.8-5.6)
[2023-02-23 12:18] LABS: Squamous Epithelial Cells - UA 0-5 SEEN /hpf (5-10)
[2023-02-23 13:16] VITALS: BP 125/71; PULSE 104; RESP 16; O2SAT 96
== END 2023-02-23 13:20 | disposition home or self-care (01) ==
PROVIDERS: Emergency Provider Emergency Medicine; PCP Internal Medicine; Visit Provider Emergency Medicine
DX: E11.65 Type 2 diabetes mellitus with hyperglycemia (principal); I50.9 Heart failure, unspecified; R11.0 Nausea; Z79.899 Other long term (current) drug therapy; Z95.810 Presence of automatic (implantable) cardiac defibrillator; J45.909 Unspecified asthma, uncomplicated; Z79.51 Long term (current) use of inhaled steroids; Z90.49 Acquired absence of other specified parts of digestive tract
CPT/HCPCS: 70450; 80048; 81001; 83036; 84484; 85025; 87428; 93005; 99284; J7030; A4216

== ENCOUNTER 2023-03-02 07:20 | Emergency (ER) | payer BC, MEDICAID, SELFPAY ==
[2023-03-02 07:20] VITALS: BP 132/60; PULSE 111; RESP 20; TEMP 36.6; O2SAT 100
--- NOTE | 2023-03-02 07:23 | ED.VIS.CHEST ---
HPI <Dr. Tr Quintanilla, DO - Last Filed: 03/03/23 09:06> History of Present Illness Chief Complaint: Chest Pain [facility] <Dr. Tr Quintanilla, - Last Filed: 03/03/23 09:06> [facility] Medical History A-fib Abnormal PFTs Allergic rhinitis due to allergen Arthritis Asthma with acute exacerbation Back injury Biventricular ICD (implantable cardioverter-defibrillator) in place (09/10/20) Congestive heart failure (CHF) DDD (degenerative disc disease), lumbar Excessive daytime sleepiness Heart disease History of cardiomyopathy ICD (implantable cardioverter-defibrillator) in place Left bundle branch block Nonischemic cardiomyopathy SOB (shortness of breath) Home Medications atenolol 25 mg tablet (Tenormin) 25 mg PO QHS heart 04/26/18 [History Last Taken 08/17/22] hydroxyzine HCl 25 mg tablet 25 mg PO Q6H PRN PRN Anxiety 05/02/19 [History Last Taken Unknown] albuterol sulfate 1.25 mg/3 mL solution for nebulization 2.5 mg (6 mL) inhalation TID-QID PRN shortness of breath or wheezing 30 days #90 mL 07/28/22 [Rx Last Taken 08/18/22] albuterol sulfate 90 mcg/actuation aerosol inhaler 1 - 2 puff inhalation Q4H PRN PRN Wheezing ##1 07/28/22 [Rx Last Taken 08/17/22] ipratropium bromide 21 mcg (0.03 %) nasal spray 2 spray intranasal BID-TID PRN allergy symptoms #30 mL 07/28/22 [Rx Last Taken 08/18/22] venlafaxine 150 mg tablet,extended release 24 hr 150 mg PO QHS mood #90 tabs 09/17/22 [Rx Last Taken Unknown] budesonide-formoterol HFA 160 mcg-4.5 mcg/actuation aerosol inhaler (Symbicort) 2 puff inhalation BID #1 ea 12/28/22 [Rx Last Taken Unknown] omeprazole 40 mg capsule,delayed release 40 mg PO BID Gerd #180 caps 01/20/23 [Rx Last Taken Unknown] furosemide 20 mg tablet 20 mg PO DAILY #90 tabs 02/18/23 [Rx Last Taken Unknown] lisinopril 2.5 mg tablet 2.5 mg PO QHS BP #90 tabs 02/18/23 [Rx Last Taken Unknown] potassium chloride 10 mEq tablet,extended release 10 meq PO DAILY #90 tabs 02/18/23 [Rx Last Taken Unknown] metformin 500 mg tablet 500 mg PO BID #20 tabs 02/23/23 [Rx Last Taken Unknown] Reli On [place] glucometer 02/25/23 [History Last Taken Unknown] atorvastatin 20 mg tablet 20 mg PO DAILY #30 tabs 03/01/23 [Rx Last Taken Unknown] Allergy/AdvReac Type Severity Reaction Status Date / Time naproxen Allergy Hives Verified 03/02/23 07:20 vancomycin Allergy Rash Verified 03/02/23 07:20 carvedilol AdvReac Upset Verified 03/02/23 07:20 Stomach Family History Grandmother CVA (cerebral vascular accident) Mother Colon cancer High cholesterol Other Bladder cancer Cancer Diabetes Hypertension Surgical History History of ankle surgery History of appendectomy History of cholecystectomy History of neck surgery Status post biventricular pacemaker Social History Smoking Status: Never smoker alcohol intake: never substance use type: does not use caffeine: Yes (sometimes) Type: carbonated beverages, coffee and tea EXAM <Dr. Tr Quintanilla DO - Last Filed: 03/03/23 09:06> Physical Exam Const Vital Signs: 03/02/23 11:18 Pulse Rate 75 Blood Pressure 127/72 H <Dr. Cedrick Vogt MD - Last Filed: 03/02/23 08:39> Physical Exam Const Vital Signs: 03/02/23 11:18 Pulse Rate 75 Blood Pressure 127/72 H <Dr. Tr Quintanilla DO - Last Filed: 03/03/23 09:06> Heart Score History: Slightly/Non-Suspicious ECG: Normal Age: >45 - <65 years Risk Factors: >/= 3 Risk Factors or History of CAD Score: 3 <Dr. Cedrick Vogt MD - Last Filed: 03/02/23 08:39> Heart Score Score: 3 MDM <Dr. Tr Quintanilla DO - Last Filed: 03/03/23 09:06> [facility] Narrative Medical decision making narrative: HISTORY OF PRESENT ILLNESS: 53-year-old female here with concern for feeling lightheaded/chest pressure. States this began approximately 20 minutes prior to arrival and has since resolved. States she was undergoing a nuclear stress test at the time felt overwhelmed. She further states she cannot describe how she is feeling. She denies any current chest pain, shortness of breath. Denies any volume loss such as vomiting or diarrhea. Denies any bleeding diathesis. The patient denies recent surgery in the last 4 weeks or immobilization in the last 3 days, denies previous diagnosis of DVT or PE, hemoptysis, unilateral leg swelling or malignancy with treatment the last 6 months. No estrogen use noted. Patient denies sudden onset of pain, no tearing sensation, no migratory symptoms, no new numbness, weakness or loss of sensation. Patient denies family history or personal history of Connective tissue disorders (Marfan's Syndrome, Milton Danlos etc) REVIEW OF SYSTEMS: Pertinent positives: Chest pressure, lightheadedness, diaphoresis Pertinent negatives: Fever, cough, syncope, LE edema PHYSICAL EXAM: Nursing triage notes reviewed, Vital signs reviewed Constitutional: please see [facility] HENT: MMM Eyes: Pupils equal round and reactive to light, Extraocular muscles intact Neck: No stridor, no JVD, full neck ROM Lungs: Clear to auscultation, No wheezing or rales. No increased work of breathing, no conversational dyspnea, no accessory muscle use, no nasal flaring. No respiratory distress noted Heart: Regular rate and rhythm, No murmurs, No rubs and No gallops, 2+ distal pulses (radial, femoral, posterior tibial) in all extremities Abdomen: Soft, there is no tenderness, rigidity, rebound or guarding, no obvious peritoneal signs, no palpable pulsatile abdominal masses, no auscultated abdominal bruit : No CVAT Extremities: No edema Neuro: No focal neurological deficits, cranial nerves II through XII intact, 5/5 strength in all extremities. Intact sensation to light touch in all extremities, 2+ reflexes bilateral patella tendons. Normal gait. No ataxia. Skin: No rash or lesions noted MEDICAL DECISION MAKING: Chief Complaint: Chest pain External records reviewed: Echocardiogram from November 2022 shows ejection fraction 65%. Last cardiology visit on 02/18/2023 Factors affecting care: cardiomyopathy status post ICD placement, stage II diastolic dysfunction, type 2 diabetes, hyperlipidemia, asthma Consults: Cardiology ALL IMAGES (IF OBTAINED) HAVE BEEN PERSONALLY REVIEWED AND INTERPRETED BY MYSELF. EKG with atrial sensed ventricular paced rhythm right axis deviation, prolonged QT interval, no obvious STEMI, similar morphology to prior EKG on February 23, 2023 CBC without leukocytosis, severe anemia, no thrombocytopenia. Magnesium within normal limits BNP within normal limits High sensitivity cardiac biomarkers (ie troponin)5 negative x2 BMP without significant electrolyte abnormalities, PIPPA or elevated anion gap to suggest endorgan hypoperfusion I have personally reviewed the patient's chest x-ray. Chest x-ray is unremarkable for pulmonary edema, pneumothorax, pneumonia or focal cardiopulmonary abnormality. MDM Narrative: The patient was initially tachycardic, tachypnea otherwise hemodynamically stable, afebrile. There were no focal cardiopulmonary abnormalities. No rales or wheezes. No lower extremity edema. No calf tenderness noted on exam. I considered the following differential diagnosis: ACS, arrhythmia, anemia, CHF, pneumonia, PE, dissection I considered PE/dissection however think these etiologies less likely lower as well score, no pulse deficits, relatively well appearance is not consistent with dissection. I considered CHF for the patient no pulmonary edema on x-ray by my read, BNP was negative. I considered anemia however the patient has not been anemic. She had no significant electrolyte abnormalities. Her EKG was nonischemic and stable from prior studies and her cardiac biomarkers were negative x2. I consulted our on-call cardiology. I spoke to Dr. Santiago who evaluated the patient history, labs department report and thought the patient could follow-up as an outpatient for further risk stratification testing. Her heart score is low risk at 3. She is appropriate for discharge home. I completed a HEART Score to screen for Major Adverse Cardiac Event (MACE) in this patient. The evidence indicates that the patient is very low risk for MACE and this is consistent with my clinical intuition. The risk of further workup or hospitalization for MACE is likely higher than the risk of the patient having a MACE. It is, therefore, in the patient?s best interest not to do additional emergent testing or to be hospitalized for MACE at this time. Shared Decision-Making No hospitalization indicated I have discussed with the patient my clinical impression and the result of the HEART Score to screen for MACE, as well as the risks of further testing and hospitalization. The HEART Score shows that the risk for MACE is less than 1%. Although the risk of MACE has not been completely eliminated, the risks of further testing or hospitalization for MACE likely exceed any potential benefit, and the patient agrees with not pursuing further emergent evaluation or hospitalization for MACE at this time. The patient and/or family, caregivers express understanding. The patient and/or family, caregivers agrees with the plan. Total critical care time today provided was at least 0 minutes. This excludes separately billable procedures. Critical care time (if documented) is secondary to the patient having high probability of clinically significant/life threatening deterioration in the patient's condition which required my urgent intervention. Impression: 1. Chest pain 2. Hypokalemia 3. History of cardiomyopathy Dispo: Discharge Lab Data Attestation: I reviewed the patient's lab results. Labs: Laboratory Results - last 24 hr 03/02/23 09:43 Troponin I High Sens 5 Radiography Chest X-Ray - ED: Read by ED Physician Diagnostic Testing: Clinical Impression(s) from Imaging Studies Chest X-Ray 03/02/23 08:15 IMPRESSION: No acute cardiopulmonary abnormality. No interval change. Electronically Signed: Vic Mckay MD at 8:27 EDT , <Dr. Cedrick Vogt MD - Last Filed: 03/02/23 08:39> [facility] MDM Narrative Medical decision making narrative: HISTORY OF PRESENT ILLNESS: 53-year-old female here with concern for feeling lightheaded/chest pressure. States this began approximately 20 minutes prior to arrival and has since resolved. States she was undergoing a nuclear stress test at the time felt overwhelmed. She further states she cannot describe how she is feeling. She denies any current chest pain, shortness of breath. Denies any volume loss such as vomiting or diarrhea. Denies any bleeding diathesis. The patient denies recent surgery in the last 4 weeks or immobilization in the last 3 days, denies previous diagnosis of DVT or PE, hemoptysis, unilateral leg swelling or malignancy with treatment the last 6 months. No estrogen use noted. Patient denies sudden onset of pain, no tearing sensation, no migratory symptoms, no new numbness, weakness or loss of sensation. Patient denies family history or personal history of Connective tissue disorders (Marfan's Syndrome, Milton Danlos etc) REVIEW OF SYSTEMS: Pertinent positives: Chest pressure, lightheadedness, diaphoresis Pertinent negatives: Fever, cough, syncope PHYSICAL EXAM: Nursing triage notes reviewed, Vital signs reviewed Constitutional: please see mdm HENT: MMM Eyes: Pupils equal round and reactive to light, Extraocular muscles intact Neck: No stridor, no JVD, full neck ROM Lungs: Clear to auscultation, No wheezing or rales. No increased work of breathing, no conversational dyspnea, no accessory muscle use, no nasal flaring. No respiratory distress noted Heart: Regular rate and rhythm, No murmurs, No rubs and No gallops, 2+ distal pulses (radial, femoral, posterior tibial) in all extremities Abdomen: Soft, there is no tenderness, rigidity, rebound or guarding, no obvious peritoneal signs, no palpable pulsatile abdominal masses, no auscultated abdominal bruit : No CVAT Extremities: No edema Neuro: No focal neurological deficits, cranial nerves II through XII intact, 5/5 strength in all extremities. Intact sensation to light touch in all extremities, 2+ reflexes bilateral patella tendons. Normal gait. No ataxia. Skin: No rash or lesions noted MEDICAL DECISION MAKING: Chief Complaint: Chest pain External records reviewed: Echocardiogram from November 2022 shows ejection fraction 65%. Last cardiology visit on 02/18/2023 Factors affecting care: cardiomyopathy status post ICD placement, stage II diastolic dysfunction, type 2 diabetes, hyperlipidemia, asthma Consults: Cardiology ALL IMAGES (IF OBTAINED) HAVE BEEN PERSONALLY REVIEWED AND INTERPRETED BY MYSELF. EKG with atrial sensed ventricular paced rhythm right axis deviation, prolonged QT interval, no obvious STEMI, similar morphology to prior EKG on February 23, 2023 CBC without leukocytosis, severe anemia, no thrombocytopenia. I have personally reviewed the patient's chest x-ray. Chest x-ray is unremarkable for pulmonary edema, pneumothorax, pneumonia or focal cardiopulmonary abnormality. [facility] Narrative: The patient was initially tachycardic, tachypnea otherwise hemodynamically stable, afebrile. There were no focal cardiopulmonary abnormalities. No rales or wheezes. No lower extremity edema. No calf tenderness noted on exam. I considered the following differential diagnosis: ACS, arrhythmia, anemia, CHF, pneumonia, PE, dissection [] The patient and/or family, caregivers express understanding. The patient and/or family, caregivers agrees with the plan. Shared decision making: I will have a discussion with the patient and or visitors regarding risk/benefits of further testing or admission. They will be made aware of of the risk/benefits inherent in this decision they will be given the opportunity to voice understanding. Total critical care time today provided was at least 0 [] minutes. This excludes separately billable procedures. Critical care time (if documented) is secondary to the patient having high probability of clinically significant/life threatening deterioration in the patient's condition which required my urgent intervention. Impression: [] Dispo: [] Lab Data Labs: Laboratory Results - last 24 hr 03/02/23 09:43 Troponin I High Sens 5 Radiography Diagnostic Testing: Clinical Impression(s) from Imaging Studies Chest X-Ray 03/02/23 08:15 IMPRESSION: No acute cardiopulmonary abnormality. No interval change. Electronically Signed: Vic Mckay MD at 8:27 EDT , Discharge Plan Triage Chief Complaint: Chest Pain ED Provider: Tr Quintanilla Dx/Rx/DC Orders Clinical Impression: Chest pain Instructions: Chest Pain [facility] Prescriptions: No Action albuterol sulfate 90 mcg/actuation HFA aerosol inhaler 1 - 2 puff inhalation Q4H PRN PRN (Reason: Wheezing) Qty: 1 0RF albuterol sulfate 1.25 mg/3 mL solution for nebulization 2.5 mg inhalation TID-QID PRN (Reason: shortness of breath or wheezing) 30 Days Qty: 90 6RF ipratropium bromide 21 mcg (0.03 %) spray,non-aerosol 2 spray intranasal BID-TID PRN (Reason: allergy symptoms) Qty: 30 3RF Rx Instructions: administer into each nostril before bed, and in AM for nasal congestions and drip symptoms. furosemide 20 mg tablet 20 mg PO DAILY Qty: 90 2RF potassium chloride 10 mEq tablet extended release 10 meq PO DAILY Qty: 90 2RF (DME) Reli On [place] glucometer 0 .ROUTE .MEDSUPPLY atenolol [Tenormin] 25 MG tablet 25 mg PO QHS hydroxyzine HCl 25 MG tablet 25 mg PO Q6H PRN PRN (Reason: Anxiety) Hold Instructions: Resume on 05/07/22. Patient Comments: TAKE 1 TABLET BY MOUTH EVERY 6 HOURS NEEDED FOR ANXIETY metformin 500 mg tablet 500 mg PO BID Qty: 20 0RF venlafaxine 150 mg tablet extended release 24hr 150 mg PO QHS Qty: 90 3RF budesonide-formoterol [Symbicort] 160-4.5 mcg/actuation HFA aerosol inhaler 2 puff inhalation BID Qty: 1 3RF Rx Instructions: administer with spacer, rinse mouth after each use omeprazole 40 mg capsule,delayed release(DR/EC) 40 mg PO BID Qty: 180 3RF lisinopril 2.5 mg tablet 2.5 mg PO QHS Qty: 90 2RF atorvastatin 20 mg tablet 20 mg PO DAILY Qty: 30 11RF Primary Care Provider: Emani Rodríguez Referrals: Natalio Berkowitz MD [Med Staff - Active Staff] - Emani Rodríguez MD [Primary Care Provider] - Activity Restrictions/Additional Instructions: Thank you for trusting us with your care today! Please take Tylenol (2 pills, 650 mg), ibuprofen (2 pills, 400 mg) every 6 hours as needed for pain and fever control. Please take a daily aspirin. Please return to the emergency department if your symptoms change or worsen. Please follow with your primary care physician for further outpatient evaluation and management. Disposition Disposition: Home, Self Care Discharge Date/Time: 03/02/23 11:21
--- NOTE | 2023-03-02 07:26 | EKG12_ITS ---
Test Reason : Blood Pressure : / mmHG Vent. Rate : 104 BPM Atrial Rate : 104 BPM P-R Int : 114 ms QRS Dur : 108 ms QT Int : 392 ms P-R-T Axes : 063 133 050 degrees QTc Int : 515 ms Atrial-sensed ventricular-paced rhythm Biventricular pacemaker detected Abnormal ECG Confirmed by SUGAR WRIGHT, REKHA ([id number]), copy editor IESHA HERRERA ([id number]) on 03/09/2023 10:11:00 AM Referred By: Confirmed By:MARCELINO WOOTEN MD
[2023-03-02] MEDS: Aspirin 81 MG TAB.CHEW 324 MG PO (07:34)
[2023-03-02 07:57] LABS: Absolute Neutrophil Count 4.7 X10^3/uL (2.0-7.7); Basophil# 0.04 X10^3/uL; Basophil% 0.6 % (0-1); Eosinophil# 0.12 X10^3/uL; Eosinophils% 1.8 % (0-5); Hematocrit 41.2 % (37-47); Hemoglobin 13.5 g/dL (12.0-15.0); Lymphocyte % 22.1 % (19-41); Mean Corp Hgb Conc 32.8 g/dL (32-36); Mean Corpuscular Hgb 26.8 pg (27.0-32.0); Mean Corpuscular Volume 81.9 fL (81-99); Mean Platelet Vol. 10.7 fl (6.2-12.0); Monocyte% 5.9 % (0-10); NRBC Flagged by Analyzer 0 % (0-5); Neutrophil # 4.72 X10^3/uL (2.7-7.7); Neutrophil % 69.3 % (47-70); Platelet Count 234 K/mm3 (150-450); RBC Distribution Width CV 14.2 % (11.6-14.6); RBC Distribution Width SD 42.6 fl (35.1-43.9); Red Blood Count 5.03 M/mm3 (4.2-5.4); White Blood Count 6.8 K/mm3 (4.4-11.0)
--- NOTE | 2023-03-02 08:15 | RAD_ITS ---
EXAM: XR CHEST, 1 VIEW CLINICAL INDICATION: chest pain TECHNIQUE: Frontal view of the chest. COMPARISON: XR Chest dated 08/18/2022 FINDINGS: LUNGS AND PLEURAL SPACES: Normal. No consolidation or edema. No pneumothorax. No effusion. HEART: Normal heart size. MEDIASTINUM: No mediastinal or hilar mass. BONES/JOINTS: No acute abnormality. TUBES, LINES AND DEVICES: Automatic implantable cardioverter defibrillator (AICD) in place. Epicardial wires remain in place. RAD/Chest 1 View (Portable) IMPRESSION: No acute cardiopulmonary abnormality. No interval change. Electronically Signed: Vic Mckay MD at 8:27 EDT ,
[2023-03-02 08:28] LABS: BNP,B-Type NATRIURETIC PEPTIDE 3.3 pg/mL (0-100)
[2023-03-02 08:52] LABS: Anion Gap 10 (5-15); BUN 14 mg/dL (7-18); BUN/Creat Ratio 12.6 RATIO (10-20); Calcium,Total 9.6 mg/dL (8.5-10.1); Chloride 101 mmol/L (98-107); Creatinine, Serum 1.11 mg/dL (0.55-1.02); EST Glomerular Filtration Rate 55 mL/min (>60); Est Glom Filt Rate - Afr Amer 66 mL/min (>60); Glucose 290 mg/dL (74-106); Magnesium 1.9 mg/dL (1.6-2.6); Potassium 3.4 mmol/L (3.5-5.1); Sodium Level 136 mmol/L (136-145); Troponin-I HS (w/2H Reflex) 3 pg/mL (3.0-54.0)
[2023-03-02 09:52] LABS: Reflex Troponin-HS? (from REC) Y
[2023-03-02 10:10] LABS: Troponin-I HS 5 pg/mL (3.0-54.0)
[2023-03-02 11:18] VITALS: BP 127/72; PULSE 75
== END 2023-03-02 11:21 | disposition home or self-care (01) ==
PROVIDERS: Emergency Provider Emergency Medicine; PCP Internal Medicine; Visit Provider Emergency Medicine
DX: R07.9 Chest pain, unspecified (principal); I50.9 Heart failure, unspecified; I42.9 Cardiomyopathy, unspecified; E11.9 Type 2 diabetes mellitus without complications; E87.6 Hypokalemia; J45.909 Unspecified asthma, uncomplicated; E78.5 Hyperlipidemia, unspecified; Z79.899 Other long term (current) drug therapy; Z79.51 Long term (current) use of inhaled steroids; Z90.49 Acquired absence of other specified parts of digestive tract; Z95.0 Presence of cardiac pacemaker; Z79.84 Long term (current) use of oral hypoglycemic drugs
CPT/HCPCS: 71045; 80048; 83735; 83880; 84484; 85025; 93005; 99284; A4216

== ENCOUNTER → 2023-03-02 | Outpatient (CLI) | payer BC, MEDICAID, SELFPAY ==
[2023-03-02 15:05] LABS: Bedside Glucose 278 mg/dL (74-106)
== END | disposition home or self-care (01) ==
PROVIDERS: PCP Internal Medicine; Referring Provider Internal Medicine Cardiovascular Disease; Visit Provider Internal Medicine Cardiovascular Disease
DX: R06.02 Shortness of breath (principal); I50.9 Heart failure, unspecified; I44.7 Left bundle-branch block, unspecified; R07.89 Other chest pain
CPT/HCPCS: 82962

== ENCOUNTER → 2023-03-29 | Outpatient (CLI) | payer BC, MEDICAID, SELFPAY ==
--- NOTE | 2023-03-29 11:17 | STRESSREP ---
Stress Test Report Date: 03/29/2023 Procedure: Pharmacologic stress nuclear imaging study Indications: Chest pain Consent: Per the patient Procedure: The patient underwent pharmacologic (Regadenoson 0.4mg ) evaluation with a peak heart rate of 115 beats per minute (68%predicted maximal heart rate) and a peak blood pressure of 118/80 mmHg. The baseline ECG demonstrated sinus rhythm with nonspecific intraventricular conduction delay. The peak pharmacologic ECG demonstrated no diagnostic changes secondary to baseline abnormalities. There were no cardiac dysrhythmias pretest, during pharmacologic infusion, or recovery. There was no complaint of chest discomfort during pharmacologic infusion or recovery. The patient was injected with 14.2 millicuries of technetium 99m Cardiolite and subsequently rest SPECT Cardiolite nuclear imaging was obtained in the horizontal long, vertical long, and short axis views. The patient underwent pharmacologic (Regadenoson) evaluation. The patient was injected with 44.4 millicuries of technetium 99m Cardiolite and subsequently stress SPECT Cardiolite nuclear imaging was obtained in the horizontal long, vertical long, and short axis views. A gated Cardiolite study at peak stress was obtained. The examination was stopped secondary to completion of protocol. Rest and stress SPECT Cardiolite nuclear imaging status post realignment, normalization, and attenuation correction demonstrate reversible perfusion defect of the apex and distal anterior wall suggestive of ischemia. There is end systolic thickening and brightening. The gated Cardiolite study demonstrates myocardial thickening and inward wall motion. The reported LVEF is 77%. Impression: 1. Pharmacologic (Regadenoson) evaluation 2. Peak pharmacologic ECG with no diagnostic changes. 3. There were no cardiac dysrhythmias pretest, during pharmacologic infusion, or recovery. 5. Reversible perfusion defect of the apex and distal anterior wall suggestive of ischemia. 6. The gated Cardiolite study reports an LVEF of 77%. This note was generated with [employer] software. It may contain incorrect words, spelling, and punctuation that were not noted in checking the note before signing.
== END | disposition home or self-care (01) ==
LOC: CVS 07:20
PROVIDERS: PCP Internal Medicine; Referring Provider Internal Medicine Cardiovascular Disease; Visit Provider Internal Medicine Cardiovascular Disease
DX: R06.09 Other forms of dyspnea (principal); I50.32 Chronic diastolic (congestive) heart failure; Z86.79 Personal history of other diseases of the circulatory system; I51.89 Other ill-defined heart diseases; I44.7 Left bundle-branch block, unspecified
CPT/HCPCS: 78452; 93017; A9500; A4216; J2785

== ENCOUNTER → 2023-03-31 | Outpatient (CLI) | payer BC, MEDICAID, SELFPAY ==
[2023-03-31 07:26] LABS: Mucous, Urine 0 SEEN /hpf (<or=2+); Squamous Epithelial Cells - UA 0 SEEN /hpf (5-10)
[2023-03-31 08:06] LABS: Absolute Lymphocyte Count 1.61 X10^3/uL (0.83-4.51); Absolute Neutrophil Count 5.9 X10^3/uL (2.0-7.7); Basophil# 0.03 X10^3/uL; Basophil% 0.4 % (0-1); Eosinophils% 1.2 % (0-5); Hematocrit 38.9 % (37-47); Hemoglobin 12.1 g/dL (12.0-15.0); Lymphocyte # 1.61 X10^3/ul (0.83-4.51); Lymphocyte % 19.5 % (19-41); Mean Corp Hgb Conc 31.1 g/dL (32-36); Mean Corpuscular Hgb 26.5 pg (27.0-32.0); Mean Corpuscular Volume 85.1 fL (81-99); Mean Platelet Vol. 11.1 fl (6.2-12.0); Monocyte% 7.3 % (0-10); NRBC Flagged by Analyzer 0 % (0-5); Neutrophil # 5.91 X10^3/uL (2.7-7.7); Neutrophil % 71.4 % (47-70); Platelet Count 214 K/mm3 (150-450); RBC Distribution Width CV 13.9 % (11.6-14.6); RBC Distribution Width SD 43.1 fl (35.1-43.9); Red Blood Count 4.57 M/mm3 (4.2-5.4); White Blood Count 8.3 K/mm3 (4.4-11.0)
[2023-03-31 08:18] LABS: Internal QC Validated? YES +Cl - CLEAR BKGD; Pregnancy, Serum, hCG Quali. NEGATIVE Negative
[2023-03-31 08:25] LABS: Anion Gap 7 (5-15); BUN 13 mg/dL (7-18); BUN/Creat Ratio 13.6 RATIO (10-20); Calcium,Total 9.3 mg/dL (8.5-10.1); Chloride 109 mmol/L (98-107); Creatinine, Serum 0.96 mg/dL (0.55-1.02); EST Glomerular Filtration Rate 65 mL/min (>60); Est Glom Filt Rate - Afr Amer 79 mL/min (>60); Glucose 163 mg/dL (74-106); Potassium 3.8 mmol/L (3.5-5.1); Sodium Level 142 mmol/L (136-145)
[2023-03-31 08:43] LABS: Color, Urine Yellow (Yellow); Glucose, Dipstick Normal (Normal); Ketone-Dipstick 5 mg/dl (Negative); Leukocyte Esterase-Dipstick 100 /ul (Negative); Nitrite-Dipstick Positive (Negative); Occult Blood-Urine 250 /ul (Negative); Protein-Dipstick 500 mg/dl (Negative); Specific Gravity, Urine 1.015 (1.002-1.030); Urine Clarity Cloudy (Clear); Urine Urobilinogen 1 mg/dl (Normal)
[2023-03-31 09:05] LABS: Urine Bilirubin Dipstick 1 mg/dL (Negative)
[2023-03-31 09:26] LABS: Bacteria 2+ /hpf (None Seen); Red Blood Cells-Urine > 100 SEEN /hpf (0-5); White Blood Cells >100 SEEN /hpf (0-5)
== END | disposition home or self-care (01) ==
LOC: LAB 07:21
PROVIDERS: Nurse Practitioner Gerontology; PCP Internal Medicine; Referring Provider Internal Medicine; Visit Provider Internal Medicine
DX: R31.9 Hematuria, unspecified (principal); R94.39 Abnormal result of other cardiovascular function study; R07.9 Chest pain, unspecified; I51.89 Other ill-defined heart diseases; R06.09 Other forms of dyspnea
CPT/HCPCS: 36415; 80048; 81001; 84703; 85025; 87086; 87088

== ENCOUNTER 2023-04-07 08:31 | Day surgery (SDC) | payer BC, MEDICAID, SELFPAY ==
--- NOTE | 2023-04-01 08:22 | HP.PCM_ITS ---
History and Physical Date of Admission: 04/07/23 This is a 53 year old female who presents to the cardiac laboratory tech today following an abnormal stress test. She has a history of cardiomyopathy status post ICD placement. Her left ventricular ejection fraction has since recovered. She also has a history of asthma. Stage II olivia stolic dysfunction was noted on recent echocardiogram. Patient describes episodes of anterior chest heaviness that occur intermittently. According to her, these last for minutes at a time. She does feel short of breath with them. According to her, they can occur at rest as well as with exertion. According to her, the discomfort is relieved on its own. According to her, sometimes she has left shoulder discomfort with it but not always. Patient sleeps with 6 pillows. According to her, she cannot breathe if she lies flat. Occasional ankle edema. Not sure about paroxysmal nocturnal dyspnea. Denies any palpitations. Denies any shocks from her defibrillator. Intake Vital Signs See EMR Allergies See EMR Medications See EMR [facility] Medical History A-fib Abnormal PFTs Allergic rhinitis due to allergen Arthritis Asthma with acute exacerbation Back injury Biventricular ICD (implantable cardioverter-defibrillator) in place (09/10/20) Congestive heart failure (CHF) DDD (degenerative disc disease), lumbar Excessive daytime sleepiness Heart disease History of cardiomyopathy ICD (implantable cardioverter-defibrillator) in place Left bundle branch block Nonischemic cardiomyopathy SOB (shortness of breath) Surgical History History of ankle surgery History of appendectomy History of cholecystectomy History of neck surgery Status post biventricular pacemaker Family History Grandmother CVA (cerebral vascular accident)Mother Colon cancer High cholesterolOther Bladder cancer Cancer Diabetes Hypertension Social History Smoking Status: Never smoker alcohol intake: never substance use type: does not use caffeine: Yes (sometimes) Type: carbonated beverages, coffee and tea ROS Const Const: Positive for fatigue, headache(s), frequent falls, daytime sleepiness (afternoon) and difficulty sleeping (sometimes); Negative for weakness or excessive sweating Eyes Eyes: Positive for change in vision; Negative for loss of peripheral vision, transient loss of vision, blurry vision, double vision or tunnel vision ENT ENT: Positive for headache(s), dizziness and balance problems; Negative for Nosebleed/epistaxis Cardio Chest Pain: Yes Frequency: daily Character: sharp (left arm/chest), tightness and other (heaviness) Location: mid sternal, left chest and other (neck) Duration: minutes and continuous (off and on all day) Palpitations: Yes (laying down) feels like its: fast and pounding (jumping oput of chest) Edema: Bilateral (lots ) Muscle aches with walking: None Resp Respiratory: Positive for SOB with activity, SOB at rest and SOB orthopnea\SOB lying down (sleeps on a lot of pills); Negative for Cough or paroxysmal nocturnal dyspnea GI GI: Positive for nausea (sometimes in am/ sometimes headache at work then vomits feels better) and heartburn (if not on omeprazole); Negative vomiting or black,tarry stools : Positive for frequent nighttime urination/ nocturia; Negative for hematuria Musc Musc: Positive for balance problems; Negative for muscle aches/ myalgia, muscle weakness or joint pain Skin Skin: Negative non-healing lesions, rash or unusual bruising Neuro Neuro: Positive for dizziness, lightheadedness (sits immediately), frequent falls and headache(s); Negative for near syncope, syncope, weakness, blurry vision, double vision or lack of coordination Lev Hematologic/Lymphatic: Negative for easy bleeding or easy bruising Endo Endo: Positive for fatigue; Negative for excessive sweating or increased thirst/drinking Psych Psych: Negative for anxiety or depression Allergy Allergy/Immunology: Negative for hives and Negative for rash Cardiology Exam Const Appearance: comfortable and no acute distress Nutritional Appearance: well nourished Neck Neck: no JVD Carotids: Negative bruit Chest Auscultation: Bilateral: Clear to Auscultation Cardio Rate: regular rate Rhythm: regular rhythm Heart sounds: S1 normal and S2 normal Neuro General: patient alert, patient awake and patient oriented x3 Extremities Lower Extremity Edema: None: Bilateral Supplemental Info Supplemental Information Stress test 03/29/2023: Procedure: Pharmacologic stress nuclear imaging study Indications: Chest pain Consent: Per the patient Procedure: The patient underwent pharmacologic (Regadenoson 0.4mg ) evaluation with a peak heart rate of 115 beats per minute (68%predicted maximal heart rate) and a peak blood pressure of 118/80 mmHg. The baseline ECG demonstrated sinus rhythm with nonspecific intraventricular conduction delay. The peak pharmacologic ECG demonstrated no diagnostic changes secondary to baseline abnormalities. There were no cardiac dysrhythmias pretest, during pharmacologic infusion, or r ecovery. There was no complaint of chest discomfort during pharmacologic infusion or recovery. The patient was injected with 14.2 millicuries of technetium 99m Cardiolite and subsequently rest SPECT Cardiolite nuclear imaging was obtained in the horizontal long, vertical long, and short axis views. The patient underwent pharmacologic (Regadenoson) evaluation. The patient was injected with 44.4 millicuries of technetium 99m Cardiolite and subsequently stress SPECT Cardiolite nuclear imaging was obtained in the horizontal long, vertical long, and short axis views. A gated Cardiolite study at peak stress was obtained. The examination was stopped secondary to completion of protocol. Rest and stress SPECT Cardiolite nuclear imaging status post realignment, normalization, and attenuation correction demonstrate reversible perfusion defect of the apex and distal anterior wall suggestive of ischemia. There is end systolic thickening and brightening. The gated Cardiolite study demonstra melita myocardial thickening and inward wall motion. The reported LVEF is 77%. Impression: 1. Pharmacologic (Regadenoson) evaluation 2. Peak pharmacologic ECG with no diagnostic changes. 3. There were no cardiac dysrhythmias pretest, during pharmacologic infusion, or recovery. 5. Reversible perfusion defect of the apex and distal anterior wall suggestive of ischemia. 6. The gated Cardiolite study reports an LVEF of 77%. Echocardiogram: 11/20/2022 ([facility]) Interpretation Summary: Normal LV size. Left ventricular systolic function is normal. The estimated ejection fraction is 65 %. Stage 2 diastolic dysfunction. Pulmonary artery systolic pressure is 28 mmHg. Echocardiogram: 12/12/2012 ([facility]) Conclusion: Cardiomyopathy Left ventricle is normal in size and function. EF= 60 + 5%. Baseline left ventricular systolic function is normal The right ventricle is normal in size and function 1+ TR RVSP 33mHg. Normal pulmonary artery pressure No valvular disease Compared to prior echo performed 10/15/10 the LVEF has improved, otherwise no significant change. Nuclear Stress Test - Chemical: 10/03/2015 ([facility]) Conclusion: Normal pharmacologic myocardial perfusion stress test with no evidence of ischemia. Preserved ejection fraction. BIV ICD Remote Evaluation: 12/29/2022 ([facility]) Presenting EGM: /BIV pacing Atrial Arrhythmias: None Ventricular Arrhythmias: None Lead measurements: Sensing is appropriate. Review of the lead impedance trends toward normal. Other diagnostics: RA pacing 2%. BIV pacing 100% Sleep Study: 08/20/22 ([facility]) Impression: The study does not meet the criteria used to define the presence of sleep apnea. Clinical correlation is suggested. Assessment and Plan Assessment and Plan (1) Chest pain: Status: Chronic Plan: Patient acknowledges chest pain. Her recent stress test from 03/29/2023 demonstrated reversible perfusion defect of the apex and distal anterior wall suggestive of ischemia. Will proceed with a cardiac catheterization to further assess this. Depending on results, further recommendations will be made. (2) Dyspnea on exertion: Status: Chronic Plan: She does have complaints of dyspnea on exertion. Her recent stress test from 03/29/2023 demonstrated reversible perfusion defect of the apex and distal anterior wall suggestive of ischemia. Will proceed with a cardiac catheterization to further assess this. Depending on results, further recommendations will be made. (3) Abnormal stress test: Patients stress test from 03/29/2023 was abnormal. Will proceed with a cardiac catheterization to further assess this. Depending on results, further recommendations will be made.
[2023-04-07 08:55] LABS: Internal QC Validated? YES +Cl - CLEAR BKGD; Pregnancy, Urine Negative Negative; Record Kit Lot#,Urine Preg HCG0000667200
--- NOTE | 2023-04-07 14:53 | CL.D_ITS ---
Patient Name: RAZA MANCUSO Study Date: 04/07/2023 Performing: Natalio Berkowitz MD Ht: 65 inches 165.1 cm : 1970 Wt: 200.3 lbs 90.72 kg Age: 53 Gender: female BSA: 1.98 PROCEDURE(S) PERFORMED DC02-([id number])[facility] CLINICAL PROFILE AND INDICATIONS Indications: Suspected CAD Heart Failure: None Stress/Imaging Stress Test w/SPECT MPI: Yes Result: Positive Intermediate RiskStress Test with SPECT MPI: Positive Intermediate Risk CAD Presentations: Symptom unlikely to be ischemic. CONCLUSIONS No angiographic CAD RECOMMENDATIONS Risk factor modification Follow up with primary care physician for evalaution of non-cardiac CP DESCRIPTION OF PROCEDURE The patient arrived to the procedure lab. The risks and benefits of the procedure as well as a full description of our services here and current unavailability of surgical backup were fully explained to the patient and/or their significant other prior to the catheterization. The Timeout was completed, verifying the correct patient and procedure. The patient's procedural site was prepped and draped in the usual fashion. Local anesthetic was given subcutaneously to right radial region with Lidocaine 2%. Using a modified Seldinger technique, arterial access was obtained via the right radial artery, a 6Fr sheath was inserted. Left Coronary Artery selective angiography was performed in multiple views using a 5 Fr. 4.0 [place] catheter. Right Coronary Artery selective angiography was then performed in multiple views using a 5 Fr. 4.0 [place] catheter.The arterial sheath was pulled and a TR Band was applied for hemostasis. 10cc of air CORONARY ANGIOGRAPHY DOMINANCE: Right Dominant LEFT MAIN: Angiographically normal LEFT ANTERIOR DESCENDING ARTERY: Angiographically normal CIRCUMFLEX ARTERY: Angiographically normal RIGHT CORONARY ARTERY: Angiographically normal COMPLICATIONS No Complications PROCEDURE MEDICATIONS Fentanyl 50 mcg IV Versed 1 mg IV Versed 1 mg IV Oxygen: 2 L/min via nasal cannula Aspirin (325mg) 1 Tabs PO @ 04/07/2023 10:00:49 Heparin given IA 04/07/2023 10:40:41 Verapamil 2.5mg, Ntg 200mcgs, 2000 units of Heparin given IA 04/07/2023 10:40:41 SUMMARY OF HEMODYNAMIC DATA Time AIR REST ECG 09:02:06 AO 109/68 (84) SA 10:47:31 Signed By Natalio Berkowitz MD On 04/07/2023 14:52:37 Natalio Berkowitz MD
== END 2023-04-07 12:30 | disposition home or self-care (01) ==
LOC: CLSP 08:37
PROVIDERS: PCP Internal Medicine; Referring Provider Internal Medicine Cardiovascular Disease; Visit Provider Internal Medicine Cardiovascular Disease
DX: R07.9 Chest pain, unspecified (principal); R00.2 Palpitations; R06.09 Other forms of dyspnea; R94.39 Abnormal result of other cardiovascular function study; Z95.810 Presence of automatic (implantable) cardiac defibrillator
CPT/HCPCS: 81025; 93454; 99152; J7040; Q9967; C1769; C1894

== ENCOUNTER → 2023-04-12 | Outpatient (CLI) | payer BC, MEDICAID, SELFPAY ==
--- NOTE | 2023-04-12 19:04 | CT_ITS ---
INDICATION: Abdominal and flank pain, hematuria EXAMINATION: CT Abdomen And Pelvis W/ Contrast Injection TECHNIQUE: Helically acquired images were obtained of the abdomen and pelvis after IV contrast. A radiation dose optimization technique was used for this scan. IV Contrast dosage and agent: IV 100mL Isovue-300 Oral contrast: None. COMPARISON: None. FINDINGS: Visualized lung bases: Unremarkable Liver: Unremarkable Gallbladder: Unremarkable Spleen: Unremarkable Pancreas: Unremarkable Adrenal Glands: Unremarkable Kidneys: Unremarkable Vasculature: Unremarkable GI Tract: Unremarkable Lymphadenopathy: None Peritoneum: No ascites. Bladder: Mild circumferential wall thickening with subtle surrounding inflammatory changes. Reproductive organs: Unremarkable Bones/Soft tissues: Mild scattered degenerative changes of the visualized spine. CT/Abdomen/Pelvis WITH Contrast IMPRESSION: Findings suspicious for cystitis. Correlate with urinalysis. No hydronephrosis or renal/ureteral stones seen. Electronically Signed: Ben Nuno MD at 20:19 EDT ,
== END | disposition home or self-care (01) ==
LOC: CT 19:03
PROVIDERS: PCP Internal Medicine; Referring Provider Internal Medicine; Visit Provider Internal Medicine
DX: R31.9 Hematuria, unspecified (principal); R10.9 Unspecified abdominal pain
CPT/HCPCS: 74177; Q9967

== ENCOUNTER → 2023-05-27 | Outpatient (CLI) | payer BC, MEDICAID, SELFPAY ==
[2023-05-27 08:43] LABS: AST(SGOT) 36 U/L (15-37); Alanine Aminotransfer ALT/SGPT 44 U/L (13-56); Albumin, Serum 3.7 g/dL (3.2-5.0); Alkaline Phosphatase 127 U/L (45-117); Free T3 2.3 pg/mL (2.18-3.98); Globulin 3.4 g/dL (2.2-4.2); Protein, Total 7.1 g/dL (6.4-8.2); T4 Free Direct 0.94 ng/dL (0.76-1.46); Thyroid Stim Hormone (TSH) 2.44 uIU/mL (0.358-3.74)
[2023-05-27 11:12] LABS: Hemoglobin A1c 6.8 % (3.8-5.6)
== END | disposition home or self-care (01) ==
LOC: LAB 06:45
PROVIDERS: Nurse Practitioner Family; PCP Internal Medicine; Referring Provider Internal Medicine; Visit Provider Internal Medicine
DX: E11.9 Type 2 diabetes mellitus without complications (principal); R79.89 Other specified abnormal findings of blood chemistry; E78.5 Hyperlipidemia, unspecified
CPT/HCPCS: 36415; 80076; 83036; 84439; 84443; 84481

== ENCOUNTER → 2023-07-14 | Outpatient (CLI) | payer BC, MEDICAID, SELFPAY ==
--- OUTSIDE RECORDS SUMMARY | 2023-07-14 06:48 | XMS RPT_ITS | CCD ---
Author Name Unknown Address [address] [place] [address] Organization [facility] Care Team Providers Care [employer] Name Role Phone YOANNA GALLEGOS Unavailable Unavailable Yanira Patel Unavailable DR YANIRA Green MD Primary Care Physician Yanira Patel MD Primary Care Provider Dagoberto Hills MD Unavailable DR YANIRA PATEL MD Primary Care Physician Yanira Patel MD Primary Care Provider Dagoberto Hills MD Unavailable AMANDA WRIGHT., DR. DOYLE Primary Care Unavail HALIE Bah MD Attending Unavailable AMANDA WRIGHT., DR. DOYLE Primary Care Unavail HALIE Bah MD Attending Unavailable AMANDA WRIGHT., DR. DOYLE Primary Care Unavail TAMY Flores MD Attending Unavailable AQUILES PETTIT Attending Unavailable AMANDA WRIGHT., DR. DOYLE Primary Care Unavail Yanira Mckenna MD Primary Care Provider Dagoberto Hills MD Unavailable ANISA FIELD Attending Unavailable YANIRA PATEL Primary Care Unavailable YANIRA PATEL Primary Care Unavailable SHASHA BALTAZAR Referring Unavailable SHASHA BALTAZAR Attending Unavailable YANIRA PATEL Primary Care Unavailable DAGOBERTO HILLS Referring Unavailable DAGOBERTO HILLS Attending Unavailable YANIRA PATEL Primary Care Unavailable Emani Rodríguez Unavailable Zachery Tang Unavailable Dr. Zachery Hess Attending Catrina Dr. Emani Wilson Primary Care [facility] juan Hills MD, Dagoberto Unavailable Allergies Allergy Classification Reported Allergen(s) Allergy Type Date of Onset Reaction(s) Facility (20 sources) carvedilol; Translations: [CARVEDILOL] Drug Allergy 4 Other: See Comments [facility] (20 sources) naproxen; Translations: [NAPROXEN] Drug Allergy 1 Hives [facility] (20 sources) vancomycin; Translations: [VANCOMYCIN] Drug Allergy 1 Other: See Comments [facility] (2 sources) OTHER; Translations: [OTHER] Propensity to adverse reactions (disorder) 1 [facility] (20 sources) environmental [Other] Propensity to adverse reactions 1 Other: See Comments [facility] Medications Current Medications Medication Drug Class(es) Dates Sig (Normalized) Sig (Original) acetaminophen 325 mg / HYDROcodone bitartrate 5 mg oral tablet (6 sources) Opioid Agonist Start: 09-22-2021 End: 09-25-2021 take 1 tablet by mouth every six hours as needed for pain Reydon 325- 5 mg oral tablet Dose = 1 tab(s), Oral, q6h, PRN As needed for severe pain, X 3 day(s), # 12 tab(s), 0 Refill(s), Back pain, acute Start Date: 09/22/21 Stop Date: 09/25/21 Status: Ordered Completed/Discontinued Medications Medication Drug Class(es) Dates Sig (Normalized) Sig (Original) [id number] 200 actuat albuterol 0.09 mg/actuat metered dose inhaler (20 sources) beta2-Adrenergic Agonist Start: 04-16-2022 take 2 puff(s) by inhalation every four hours as needed for wheezing albuterol HFA (PROVENTIL HFA, VENTOLIN HFA) 90 mcg/actuation inhaler Inhale 2 Puffs as instructed every 4 hours as needed for wheezing/shortnes s of breath. 18 g 5 04/16/2022 Active Problems Active Problems Problem Classification Problem Date Documented Date Episodic/Chronic Anxiety disorders (2 sources) Panic attack; Translations: [Panic disorder [episodic paroxysmal anxiety]] Chronic Asthma (20 sources) Cough variant asthma; Translations: [Cough variant asthma] Onset: 10-02-2021 Chronic Chronic obstructive pulmonary disease and bronchiectasis (2 sources) Bronchitis; Translations: [Bronchitis, not specified as acute or chronic] Onset: 05-11-2021 Episodic Conduction disorders (20 sources) Left bundle branch block; Translations: [Left bundle-branch block, unspecified] Onset: 05-06-2010 03-11-2020 Chronic Congestive heart failure; nonhypertensive (20 sources) Congestive heart failure stage C; Translations: [Heart failure, unspecified] Onset: 05-06-2010 06-09-2021 Chronic E Codes: Fall (1 source) Fall 02-05-2023 Esophageal disorders (20 sources) Gastroesophageal reflux disease without esophagitis; Translations: [Gastro-esophageal reflux disease without esophagitis] Onset: 10-29-2020 10-29-2020 Chronic Genitourinary symptoms and ill-defined conditions (20 sources) Female stress incontinence; Translations: [Stress incontinence (female) (male)] Onset: 12-31-2014 02-11-2015 Chronic Menstrual disorders (20 sources) Menometrorrhagia; Translations: [Excessive and frequent menstruation with irregular cycle] Onset: 10-29-2020 10-29-2020 Chronic Other infections; including parasitic (1 source) Late effects of other and unspecified infectious and parasitic diseases; 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 Other lower respiratory disease (1 source) Cough; Translations: [Cough, unspecified] Onset: 05-20-2021 Episodic Other lower respiratory disease (2 sources) Dyspnea; Translations: [Dyspnea, unspecified] Onset: 05-20-2021 Episodic Other lower respiratory disease (1 source) Pleuritic pain; Translations: [Pleurodynia] Episodic Other nervous system disorders (1 source) Neuropathy; Translations: [Polyneuropathy, unspecified] Chronic Other nutritional; endocrine; and metabolic disorders (20 sources) Obese class I; Translations: [Obesity, unspecified] Onset: 10-29-2020 10-29-2020 Chronic Magdalena-; endo-; and myocarditis; cardiomyopathy (except that caused by tuberculosis or sexually transmitted disease) (20 sources) Primary cardiomyopathy; Translations: [Other cardiomyopathies] Onset: 12-25-2008 12-25-2008 Chronic Spondylosis; intervertebral disc disorders; other back problems (20 sources) Cervical spondylosis without myelopathy; Translations: [Spondylosis without myelopathy or radiculopathy, cervical region] Onset: 12-03-2011 12-03-2011 Chronic Superficial injury; contusion (3 sources) Contusion of hip; Translations: [Contusion of hip] 02-05-2023 Episodic Unclassified (1 source) Acute cough; Translations: [Acute cough] Onset: 04-16-2022 Unclassified (2 sources) LOW BS 02-05-2023 Past or Other Problems Problem Classification Problem Date Documented Da te Episodic/Chronic Abdominal pain (20 sources) Right upper quadrant pain; Translations: [Right upper quadrant pain] Onset: 10-29-2020 10-29-2020 Episodic E Codes: Fall (20 sources) Fall on same level from slipping, tripping and stumbling without subsequent striking against object, initial encounter; Translations: [Fall from other slipping, tripping, or stumbling] Onset: 02-21-2015 02-21-2015 Episodic Malaise and fatigue (1 source) Other fatigue; Translations: [Other fatigue] Onset: 04-16-2022 Episodic Other circulatory disease (20 sources) History of cardiomyopathy; Translations: [Personal history of other diseases of the circulatory system] Onset: 01-13-2013 03-11-2020 Episodic Other lower respiratory disease (18 sources) Cough; Translations: [Post-COVID chronic cough] Onset: 10-02-2021 10-02-2021 Episodic Other nervous system disorders (20 sources) Abnormal gait; Translations: [Unsteadiness on feet] Onset: 01-29-2015 01-29-2015 Episodic Other non-traumatic joint disorders (20 sources) Arthralgia of the pelvic region and thigh; Translations: [Pain in unspecified hip] Onset: 06-22-2011 06-22-2011 Episodic Other non-traumatic joint disorders (20 sources) Shoulder pain; Translations: [Pain in left shoulder] Onset: 10-06-2017 10-06-2017 Episodic Other non-traumatic joint disorders (2 sources) Pain in left shoulder; Translations: [Pain in joint, shoulder region] Onset: 10-06-2017 10-06-2017 Episodic Residual codes; unclassified (20 sources) Family history of cancer of colon; Translations: [Family history of malignant neoplasm of digestive organs] Onset: 01-28-2009 01-28-2009 Episodic Spondylosis; intervertebral disc disorders; other back problems (20 sources) Sciatica; Translations: [Sciatica, unspecified side] Onset: 10-02-2011 Episodic Results Test Name Value Interpretation Reference Range Facil ity Vital Signs Date Time Vital Sign Value Performing Clinician Facility 02-05-2023 13:00-0400 Diastolic blood pressure 96 mm[Hg] Emani Rodríguez Other Phone: [facility] 02-05-2023 13:00-0400 Heart rate 84 /min Emani Rodríguez Other Phone: [facility] 02-05-2023 13:00-0400 Respiratory rate 18 /min Emani Rodríguez Other Phone: [facility] 02-05-2023 13:00-0400 SaO2% (BldA) [Mass fraction] 99 % Emani Rodríguez Other Phone: [facility] 02-05-2023 13:00-0400 Systolic blood pressure 108 mm[Hg] Emani Rodríguez Other Phone: [facility] 02-05-2023 11:06-0400 Body height 165.1 cm Emani Rodríguez Other Phone: [facility] 02-05-2023 11:06-0400 Body temperature 98.06 [degF] Emani Rodríguez Other Phone: [facility] 02-05-2023 11:06-0400 Body weight 85 kg Emani Rodríguez Other Phone: [facility] 04-29-2022 10:25-0500 Body temperature 100.2 [degF] Anisa Field APRN.CHANGE OF ADDRESS CLERK Work Phone: [facility] 04-29-2022 10:25-0500 Diastolic blood pressure 80 mm[Hg] Anisa Tannhof ANGLE SHEAR OPERATOR.CHANGE OF ADDRESS CLERK Work Phone: [facility] 04-29-2022 10:25-0500 Heart rate 134 /min Anisa Tannhof ANGLE SHEAR OPERATOR.CHANGE OF ADDRESS CLERK Work Phone: [facility] 04-29-2022 10:25-0500 Respiratory rate 28 /min Anisa Tannhof ANGLE SHEAR OPERATOR.CHANGE OF ADDRESS CLERK Work Phone: [facility] 04-29-2022 10:25-0500 SaO2% (BldA) [Mass fraction] 98 % Anisa Tannhof ANGLE SHEAR OPERATOR.CHANGE OF ADDRESS CLERK Work Phone: [facility] 04-29-2022 10:25-0500 Systolic blood pressure 120 mm[Hg] Anisa Tannhof ANGLE SHEAR OPERATOR.CHANGE OF ADDRESS CLERK Work Phone: [facility] 04-20-2022 11:18-0500 Body height 162.6 cm HALIE PHILIP MD [facility] 04-20-2022 11:18-0500 Body temperature 98.42 [degF] HALIE PHILIP MD [facility] 04-20-2022 11:18-0500 Body weight 90.9 kg HALIE PHILIP MD [facility] 04-20-2022 11:18-0500 Diastolic blood pressure 76 mm[Hg] HALIE PHILIP MD [facility] 04-20-2022 11:18-0500 Heart rate 81 /min HALIE PHILIP MD [facility] 04-20-2022 11:18-0500 Respiratory rate 24 /min HALIE PHILIP MD [facility] 04-20-2022 11:18-0500 Systolic blood pressure 139 mm[Hg] HALIE PHILIP MD [facility] 10-02-2021 10:29-0400 Body weight 89.81 kg Mckenna Baeza MD Work Phone: [facility] 10-02-2021 10:29-0400 Diastolic blood pressure 58 mm[Hg] Mckenna Beaza MD Work Phone: [facility] 10-02-2021 10:29-0400 Heart rate 85 /min Mckenna Baeza MD Work Phone: [facility] 10-02-2021 10:29-0400 Respiratory rate 14 /min Mckenna Baeza MD Work Phone: [facility] 10-02-2021 10:29-0400 SaO2% (BldA) [Mass fraction] 99 % Mckenna Baeza MD Work Phone: [facility] 10-02-2021 10:29-0400 Systolic blood pressure 124 mm[Hg] Mckenna Baeza MD Work Phone: [facility] 09-22-2021 13:25-0400 Diastolic blood pressure 62 mm[Hg] TAMY CALERO MD [facility] 09-22-2021 13:25-0400 Heart rate 80 /min TAMY CALERO MD [facility] 09-22-2021 13:25-0400 Reason For Taking VItal Signs TAMY CALERO MD [facility] 09-22-2021 13:25-0400 Respiratory rate 16 /min TAMY CALERO MD [facility] 09-22-2021 13:25-0400 Systolic blood pressure 106 mm[Hg] TAMY CALERO MD [facility] 09-22-2021 13:10-0400 Diastolic blood pressure 70 mm[Hg] TAMY CALERO MD [facility] 09-22-2021 13:10-0400 Heart rate 81 /min TAMY CALERO MD [facility] 09-22-2021 13:10-0400 Respiratory rate 16 /min TAMY CALERO MD [facility] 09-22-2021 13:10-0400 Systolic blood pressure 110 mm[Hg] TAMY CALERO MD [facility] 09-22-2021 12:01-0400 Body temperature 97.88 [degF] TAMY CALERO MD [facility] 09-22-2021 12:01-0400 Diastolic blood pressure 70 mm[Hg] TAMY CALERO MD [facility] 09-22-2021 12:01-0400 Heart rate 77 /min TAMY CALERO MD [facility] 09-22-2021 12:01-0400 Mean blood pressure 89 mm[Hg] TAMY CALERO MD [facility] 09-22-2021 12:01-0400 Respiratory rate 16 /min TAMY CALERO MD [facility] 09-22-2021 12:01-0400 Systolic blood pressure 126 mm[Hg] TAMY CALERO MD [facility] 05-20-2021 13:40-0500 Diastolic blood pressure 55 mm[Hg] AQUILES FROMMELT DO [facility] 05-20-2021 13:40-0500 Heart rate 91 /min AQUILES FROMMELT DO [facility] 05-20-2021 13:40-0500 Respiratory rate 20 /min AQUILES FROMMELT DO [facility] 05-20-2021 13:40-0500 Systolic blood pressure 101 mm[Hg] AQUILES FROMMELT DO [facility] 05-20-2021 12:06-0500 Heart rate 72 /min AQUILES FROMMELT DO [facility] 05-20-2021 12:06-0500 Respiratory rate 16 /min AQUILES FROMMELT DO [facility] 05-20-2021 11:55-0500 Heart rate 66 /min AQUILES FROMMELT DO [facility] 05-20-2021 11:55-0500 Respiratory rate 20 /min AQUILES FROMMELT DO [facility] 05-20-2021 08:46-0500 Body temperature 96.98 [degF] AQUILES PETTIT DO [facility] 05-20-2021 08:46-0500 Diastolic blood pressure 74 mm[Hg] AQUILES PETTIT DO [facility] 05-20-2021 08:46-0500 Systolic blood pressure 136 mm[Hg] AQUILES PETTIT DO [facility] 05-11-2021 13:00-0500 Heart rate 87 /min HALIE PHILIP MD [facility] 05-11-2021 12:13-0500 Body temperature 98.24 [degF] HALIE PHILIP MD [facility] 05-11-2021 12:13-0500 Diastolic blood pressure 77 mm[Hg] HALIE PHILIP MD [facility] 05-11-2021 12:13-0500 Heart rate 90 /min HALIE PHILIP MD [facility] 05-11-2021 12:13-0500 Respiratory rate 24 /min HALIE PHILIP MD [facility] 05-11-2021 12:13-0500 Systolic blood pressure 119 mm[Hg] HALIE PHILIP MD [facility] 04-11-2021 19:07-0400 Body temperature 98.6 [degF] HALIE PHILIP MD [facility] 04-11-2021 19:07-0400 Diastolic blood pressure 54 mm[Hg] HALIE PHILIP MD [facility] 04-11-2021 19:07-0400 Heart rate 86 /min HALIE PHILIP MD [facility] 04-11-2021 19:07-0400 Reason For Taking VItal Signs HALIE PHILIP MD [facility] 04-11-2021 19:07-0400 Respiratory rate 18 /min HALIE PHILIP MD [facility] 04-11-2021 19:07-0400 Systolic blood pressure 119 mm[Hg] HALIE PHILIP MD [facility] 04-11-2021 18:08-0400 Body temperature 98.78 [degF] HALIE PHILIP MD [facility] 04-11-2021 18:08-0400 Diastolic blood pressure 74 mm[Hg] HALIE PHILIP MD [facility] 04-11-2021 18:08-0400 Heart rate 96 /min HALIE PHILIP MD [facility] 04-11-2021 18:08-0400 Mean blood pressure 87 mm[Hg] HALIE PHILIP MD [facility] 04-11-2021 18:08-0400 Respiratory rate 16 /min HALIE PHILIP MD [facility] 04-11-2021 18:08-0400 Systolic blood pressure 113 mm[Hg] HALIE PHILIP MD [facility] Encounters Encounter Date Encounter Type Care Provider Facility Start: 04-06-2023 Follow-up encounter Dgaoberto hand MD Work Phone: [facility] Start: 04-06-2023 ICD Remote F/U Dagoberto fisher MD Work Phone: [facility] Department Start: 02-05-2023 End: 02-05-2023 Emergency department patient visit Zachery Tang [facility] Emergency Start: 12-29-2022 Follow-up encounter Dagoberto hand MD Work Phone: [facility] Start: 12-29-2022 ICD Remote F/U Dagoberto fisher MD Work Phone: [facility] Department Start: 10-01-2022 Telephone encounter Dagoberto hand MD Work Phone: Cardiology Procedures Date Procedure Procedure Detail Performing Clinician Start: 04-06-2023 ICD REMOTE CHECK Dagoberto Hills MD Work Phone: Start: 12-29-2022 ICD REMOTE CHECK Dagoberto Hills MD Work Phone: Start: 09-10-2022 ICD REMOTE CHECK Dagoberto Hills MD Work Phone: Start: 06-11-2022 ICD REMOTE CHECK Dagoberto Hills MD Work Phone: Start: 09-15-2021 ICD CLINIC CHECK Dagoberto Hills MD Work Phone: Start: 09-09-2021 ICD REMOTE CHECK Dagoberto Hills MD Work Phone: Start: 11-09-2020 Lipid 1996 panel - S james or Plasma Dagoberto Hills MD Work Phone: Start: 11-01-2020 Mammography Shan carlos APRN.DAXA MAGALLON Work Phone: Start: 10-28-2020 Adult depression scr eening assessment Shan Lazo APRN.DAXA MAGALLON Work Phone: Start: 03-11-2020 Colonoscopy Shan carlos APRN.DAXA MAGALLON Work Phone: Plan of Treatment Date Care Activity Detail Author Start: 11-12-2025 HPV TESTING HPV TESTING [facility] Start: 11-12-2025 PAP TESTING PAP TESTING [facility] Start: 11-09-2025 Lipid 1996 panel - Serum or Plasma Lipid Screening [facility] Start: 11-09-2025 LIPID SCREEN LIPID SCREEN [facility] Start: 03-04-2024 DIABETES SCREEN DIABETES SCREEN [facility] Start: 03-04-2024 Diabetes Screening Diabetes Screenin g [facility] Start: 04-29-2023 ANNUAL PCP TEAM LIGHT OUT EXAMINER GENTRY DISEASE VISIT ANNUAL PCP TEAM CHRONIC DISEASE VISIT [facility] Start: 02-12-2023 Covid-19 Vaccine ( season) Covid-19 Vaccine ( season) [facility] Start: 02-12-2023 Influenza vaccination C [facility] Start: 08-18-2022 ANNUAL PCP TEAM LIGHT OUT EXAMINER GENTRY DISEASE VISIT ANNUAL PCP TEAM CHRONIC DISEASE VISIT [facility] Start: 07-29-2022 End: 09-28-2022 C reactive protein [Mass/volume] in Serum or Plasma C-REACTIVE PROTEIN (CRP) Lab Routine Pleurodynia Expected: 07/29/2022, Expires: 09/28/2022 [facility] Work Phone: Immunizations Immunization Date Immunization Notes Care Provider Fa cili 06-06-2019 influenza, injectabl e, quadrivalent, contains preservative Shan Lazo APRN.DAXA MAGALLON Work Phone: [facility] 06-06-2019 influenza virus vaccine, unspecified formulation Dagoberto Hills MD Work Phone: [facility] 03-12-2018 influenza, injectabl e, quadrivalent, contains preservative Shan Violet ANGLE SHEAR OPERATOR.[facility] Work Phone: [facility] 04-17-2017 influenza, injectabl e, quadrivalent, contains preservative Shan Violet ANGLE SHEAR OPERATOR.[facility] Work Phone: [facility] Work Phone: 04-04-2016 influenza, injectabl e, quadrivalent, contains preservative Shan Violet ANGLE SHEAR OPERATOR.[facility] Work Phone: [facility] 07-16-2015 measles, mumps and rubella virus vaccine Shan Blaz ANGLE SHEAR OPERATOR.[facility] Work Phone: [facility] Work Phone: 03-23-2015 influenza, injectabl e, quadrivalent, contains preservative Shan Violet ANGLE SHEAR OPERATOR.[facility] Work Phone: [facility] 03-29-2014 influenza, seasonal, injectable Shan Blaz ANGLE SHEAR OPERATOR.[facility] Work Phone: [facility] Work Phone: 03-25-2013 influenza virus vaccine, unspecified formulation Shan Blaz ANGLE SHEAR OPERATOR.[facility] Work Phone: [facility] 03-05-2012 influenza virus vaccine, unspecified formulation Shan Blaz ANGLE SHEAR OPERATOR.[facility] Work Phone: [facility] Work Phone: 04-25-2011 influenza virus vaccine, unspecified formulation Shan Blaz ANGLE SHEAR OPERATOR.[facility] Work Phone: [facility] 09-22-2010 hepatitis B vaccine, adult dosage Shan Blaz ANGLE SHEAR OPERATOR.[facility] Work Phone: [facility] 03-24-2010 hepatitis B vaccine, adult dosage Shan Blaz ANGLE SHEAR OPERATOR.[facility] Work Phone: [facility] 03-24-2010 influenza virus vaccine, unspecified formulation Shan Blaz ANGLE SHEAR OPERATOR.[facility] Work Phone: [facility] 02-08-2010 hepatitis B vaccine, adult dosage Shan Lazo APRN.CHANGE OF ADDRESS CLERK, DNP Work Phone: [facility] 02-08-2010 tetanus toxoid, reduced diphtheria toxoid, and acellular pertussis vaccine, adsorbed Shan Lazo APRN.CHANGE OF ADDRESS CLERK, DNP Work Phone: [facility] 03-28-2009 influenza virus vaccine, unspecified formulation Shan Lazo APRN.CHANGE OF ADDRESS CLERK, DNP Work Phone: [facility] Work Phone: Payers Date Payer Category Payer Unknown MMO MMO [employer] [id number] 2021-Present [phone] [address] [place] [address] PPO [id number] 51453.[facility] 2021 Unknown [id number] 2021 Medicaid [place] [employer] [place] [employer] [id number] 2021-Present [phone] [address] [place] [address] Medicaid [id number] 2021 Medicaid [id number] 2021 Unknown [id number] 2021 Unknown [id number] 2018 Unknown [id number] 1971 Unknown [id number] 1971 Unknown [id number] 1971 Unknown [id number] 1971 Unknown [id number] 1971 Unknown [id number] Unknown [id number] Unknown [id number] Social History Date Type Detail Facility Never smoker [facility] Start: 1970 Sex Assigned At Female [facility] Start: 09-22-2021 End: 03-30-2022 Tobacco smoking status NHIS Never smoked tobacco [facility] Start: 08-13-2021 End: 04-29-2022 Alcohol intake Current non-drinker of alcohol (finding) [facility] Start: 03-08-2020 End: 06-03-2021 History SDOH Alcohol Frequency 1 [facility] Start: 03-08-2020 End: 03-21-2020 History SDOH Social Connections Phone 3 [facility] Start: 03-21-2020 End: 06-03-2021 History SDOH Social Connections Get Together 2 [facility] Start: 03-21-2020 History SDOH Physical Activity DPW 0 [facility] Start: 10-13-2019 Education 17 [facility] Start: 08-19-2021 End: 04-29-2022 Exposure to SARS-CoV-2 (event) Not sure [facility] Start: 01-04-2022 End: 01-14-2022 Exposure to SARS-CoV-2 (event) Unable to assess [facility] Work Phone: Start: 06-10-2011 End: 03-30-2022 Tobacco use and exposure Smokeless tobacco non-user [facility] Start: 03-20-2020 End: 05-20-2020 History of Social function [facility] Start: 03-20-2020 End: 05-20-2020 Social connection and isolation panel [facility] Do you belong to any clubs or organizations such as sikh groups, unions, fraternal or athletic groups, or school groups? Yes [facility] Status [facility] How many standard dr inks containing alcohol do you have on a typical day? 1 or 2 [facility] How hard is it for y ou to pay for the very basics like food, housing, medical care, and heating Somewhat hard [facility] Work Phone: Do you feel stress - tense, restless, nervous, or anxious, or unable to sleep at night because your mind is troubled all the time - these days [OSQ] To some extent [facility] (I/We) worried raquel er (my/our) food would run out before (I/we) got money to buy more. Sometimes true [facility] In the past 12 month s, was there a time when you were not able to pay the mortgage or rent on time? No [facility] Start: 08-26-2020 Gender identity Identifies as female gender (finding) [facility] Tobacco smoking consumption unknown [facility] Medical Equipment Procedure Code Equipment Code Equipment Origin al Text Equipment Identifier Dates Lead Uplr V Epi [id number] [id number] - [id number] Start: 07-11-2010 Functional Status Date Assessment Result Facility 04-20-2022 Functional Status Assistive Device None A [facility] 04-20-2022 Functional Status Resting [facility] 09-22-2021 Functional Status [facility] 09-22-2021 Functional Status [facility] Mental Status Date Assessment Result Facility 04-20-2022 Mental Status Orientation Oriented x 4 [facility] 04-20-2022 Mental Status [facility] 09[facility]22-2021 [facility] Clinical Notes 07-12-2010 to 10-01-2022 Telephone Encounter - Junior Humphrey RN - 10/01/2022 4:46 PM EDTTelephone Encounter - Dasia Falcon - 07/20/2022 10:55 AM Noe Field APRN.CNP - 04/29/2022 11:00 AM EST Note Date & Type Note Facility 10-01-2022 Miscellaneous Notes Spoke with patient and updated them on their device and its MRI conditionality. Patient verbalized understanding. documented in this encounter [facility] 07-20-2022 Miscellaneous Notes Call from pharmacy requesting refill. Requested Prescriptions Pending Prescriptions Disp Refills lisinopril 2.5 mg tablet 90 tablet 3 Sig: Take 1 tablet by mouth once daily. atenolol (TENORMIN) 25 mg tablet 90 tablet 3 Sig: Take 1 tablet by mouth once daily. Patient last seen 10/14/20 By: Amanda Falcon documented in this encounter [facility] 04-29-2022 Note HNO ID: [id number] Author: Anisa Field APRN.SHERITA Service: ? Author Type: Nurse Practitioner Type: Progress Notes Filed: 04/29/2022 11:28 AM Note Text: This is a 52 year old female who presents today with: No chief complaint on file. HISTORY OF PRESENT ILLNESS: Raza Mancuso is a 52 year old female. No chief complaint on file. HOSPITAL/ER FOLLOW UP: Reason for visit: Cough Which facility: [facility] ER Date of visit: 04/27/2022 Diagnosis: Bronchitis Testing done: BNP and troponin normal. Potassium mildly low. EKG and chest x-ray normal. CT of chest showed bilateral upper lobe groundglass opacities of unknown significance. Treatment given: Azithromycin/Z-Mandeep. Currently following with pulmonology, Dr. Baeza next appointment? History of post COVID chronic cough with asthma. Current symptoms: I walked into room to find patient sitting on the floor with her head in her lap, breathing quickly. Refers that she has been feeling like this for several days which led her to go to the ER. Still taking Z-Mandeep. Refers that she has difficulty catching breath. Requesting to go back to ER by EMS at this time. PAST MEDICAL HISTORY: PAST MEDICAL HISTORY Diagnosis Date Allergies Cardiac defibrillator in place Cough variant asthma Cyst of Bartholin's gland GERD (gastroesophageal reflux disease) History of COVID-19 IBS (irritable bowel syndrome) Pacemaker PMH - PAST MEDICAL HISTORY OF 06/14/2004 Cardiomyopathy PAST SURGICAL HISTORY Procedure Laterality Date APPENDECTOMY age 22 COLONOSCOPY FLX DX W/COLLJ SPEC WHEN PFRMD 03/11/2020 Colonoscopy ESOPHAGOGASTRODUODENOSCOPY TRANSORAL DIAGNOSTIC 03/11/2020 EGD IANDD OF BARTHOLINS GLAND ABSCESS 1999 ICD (ICD) 2009 LAPAROSCOPY SURG CHOLECYSTECTOMY 2004 Cholecystectomy, lap PAST SURGICAL HISTORY OF Left 2004 ankle /screws and plate PAST SURGICAL HISTORY OF ~2014 cervical spine surgery- unsure of what occured- states they tried to make the hole bigger on my spine ALLERGIES Carvedilol, Environmental [Other], Naproxen, and Vancomycin MEDICATIONS Current Outpatient Medications Medication Sig albuterol HFA (PROVENTIL HFA, VENTOLIN HFA) 90 mcg/actuation inhaler Inhale 2 Puffs as instructed every 4 hours as needed for wheezing/shortness of breath. diclofenac, EC, (VOLTAREN) 75 mg EC tablet Take 1 tablet by mouth twice daily. For pain/inflammation. Take with food. gabapentin (NEURONTIN) 300 mg capsule Take 1 capsule by mouth daily at bedtime for 181 days. omeprazole (PRILOSEC) 40 mg capsule Take 1 capsule by mouth twice daily. linaclotide (LINZESS) 145 mcg capsule Take 1 capsule by mouth DAILY (6 AM). fluticasone-salmeterol HFA (ADVAIR HFA) 115-21 mcg/actuation inhaler Inhale 2 Puffs as instructed twice daily. lisinopril 2.5 mg tablet Take 1 tablet by mouth once daily. atenolol (TENORMIN) 25 mg tablet Take 1 tablet by mouth once daily. venlafaxine ER (EFFEXOR XR) 150 mg 24 hr capsule Take 1 capsule by mouth once daily. omeprazole (PRILOSEC) 40 mg capsule Take 1 capsule by mouth once daily albuterol (PROVENTIL) 2.5 mg /3 mL (0.083 %) nebulizer solution Use 3 mL via nebulizer every 4 hours as needed for wheezing/shortness of breath. Use over 5-15minutes. linaCLOtide (LINZESS) 290 mcg capsule Take 1 capsule by mouth DAILY (6 AM). dicyclomine (BENTYL) 10 mg capsule Take 1 capsule by mouth three times daily as needed. MULTIVITAMIN ORAL Take by mouth. lactulose (DUPHALAC, CONSTULOSE) 20 gram/30 mL solution Take 30 mL by mouth once daily. hydrOXYzine HCl (ATARAX) 25 mg tablet Take 1 tablet by mouth every 6 hours as needed for Anxiety. Current Facility-Administered Medications Medication Dose Route Frequency perflutren lipid microspheres 1.3 mL in NaCl (PF) 0.9% 10 mL injection (DEFINITY) INTRAVENOUS DIRECTED PRN sodium chloride 0.9 % (flush) 10 mL (BD POSIFLUSH) 10 mL INTRAVENOUS DIRECTED PRN FAMILY HISTORY Problem Relation Age of Onset Colon Cancer Mother Lipids Mother Stroke Maternal Grandmother Anesthesia Problems No Family History Blood Clots No Family History Clotting Disorder No Family History Social History Tobacco Use Smoking status: Never Smokeless tobacco: Never Vaping Use Vaping Use: Never used Substance Use Topics Alcohol use: No Drug use: No REVIEW OF SYSTEMS GENERAL: No weight loss, malaise or fevers/chills HEENT: Negative for frequent or significant headaches, No changes in hearing or vision. NECK: Negative for lumps, goiter, pain and significant neck swelling RESPIRATORY: + SOB CARDIOVASCULAR: Negative for chest pain, leg swelling, orthopnea, or palpitations GI: No nausea, vomiting, or diarrhea/constipation. No hematochezia/melena. No heartburn or reflux symptoms. : No history of dysuria, frequency or incontinence MUSCULOSKELETAL: Negative for joint pain or swelling. SKIN: Negative for lesions, rash, and itching ENDOCRINE: Negative for col (more content not included)... [facility] 04-29-2022 History of Present illness Narrative This is a 52 year old female who presents today with: No chief complaint on file. HISTORY OF PRESENT ILLNESS: Raza Mancuso is a 52 year old female. No chief complaint on file. HOSPITAL/ER FOLLOW UP: Reason for visit: Cough Which facility: [facility] ER Date of visit: 04/27/2022 Diagnosis: Bronchitis Testing done: BNP and troponin normal. Potassium mildly low. EKG and chest x-ray normal. CT of chest showed bilateral upper lobe groundglass opacities of unknown significance. Treatment given: Azithromycin/Z-Mandeep. Currently following with pulmonology, Dr. Baeza next appointment? History of post COVID chronic cough with asthma. Current symptoms: I walked into room to find patient sitting on the floor with her head in her lap, breathing quickly. Refers that she has been feeling like this for several days which led her to go to the ER. Still taking Z-Mandeep. Refers that she has difficulty catching breath. Requesting to go back to ER by EMS at this time. PAST MEDICAL HISTORY: PAST MEDICAL HISTORY Diagnosis Date Allergies Cardiac defibrillator in place Cough variant asthma Cyst of Bartholin's gland GERD (gastroesophageal reflux disease) History of COVID-19 IBS (irritable bowel syndrome) Pacemaker PMH - PAST MEDICAL HISTORY OF 06/14/2004 Cardiomyopathy PAST SURGICAL HISTORY Procedure Laterality Date APPENDECTOMY age 22 COLONOSCOPY FLX DX W/COLLJ SPEC WHEN PFRMD 03/11/2020 Colonoscopy ESOPHAGOGASTRODUODENOSCOPY TRANSORAL DIAGNOSTIC 03/11/2020 EGD I&D OF BARTHOLINS GLAND ABSCESS 1999 ICD (ICD) 2009 LAPAROSCOPY SURG CHOLECYSTECTOMY 2005 Cholecystectomy, lap PAST SURGICAL HISTORY OF Left 2005 ankle /screws and plate PAST SURGICAL HISTORY OF ~2014 cervical spine surgery- unsure of what occured- states they tried to make the hole bigger on my spine ALLERGIES Carvedilol, Environmental [Other], Naproxen, and Vancomycin MEDICATIONS Current Outpatient Medications Medication Sig albuterol HFA (PROVENTIL HFA, VENTOLIN HFA) 90 mcg/actuation inhaler Inhale 2 Puffs as instructed every 4 hours as needed for wheezing/shortness of breath. diclofenac, EC, (VOLTAREN) 75 mg EC tablet Take 1 tablet by mouth twice daily. For pain/inflammation. Take with food. gabapentin (NEURONTIN) 300 mg capsule Take 1 capsule by mouth daily at bedtime for 181 days. omeprazole (PRILOSEC) 40 mg capsule Take 1 capsule by mouth twice daily. linaclotide (LINZESS) 145 mcg capsule Take 1 capsule by mouth DAILY (6 AM). fluticasone-salmeterol HFA (ADVAIR HFA) 115-21 mcg/actuation inhaler Inhale 2 Puffs as instructed twice daily. lisinopril 2.5 mg tablet Take 1 tablet by mouth once daily. atenolol (TENORMIN) 25 mg tablet Take 1 tablet by mouth once daily. venlafaxine ER (EFFEXOR XR) 150 mg 24 hr capsule Take 1 capsule by mouth once daily. omeprazole (PRILOSEC) 40 mg capsule Take 1 capsule by mouth once daily albuterol (PROVENTIL) 2.5 mg /3 mL (0.083 %) nebulizer solution Use 3 mL via nebulizer every 4 hours as needed for wheezing/shortness of breath. Use over 5-15minutes. linaCLOtide (LINZESS) 290 mcg capsule Take 1 capsule by mouth DAILY (6 AM). dicyclomine (BENTYL) 10 mg capsule Take 1 capsule by mouth three times daily as needed. MULTIVITAMIN ORAL Take by mouth. lactulose (DUPHALAC, CONSTULOSE) 20 gram/30 mL solution Take 30 mL by mouth once daily. hydrOXYzine HCl (ATARAX) 25 mg tablet Take 1 tablet by mouth every 6 hours as needed for Anxiety. Current Facility-Administered Medications Medication Dose Route Frequency perflutren lipid microspheres 1.3 mL in NaCl (PF) 0.9% 10 mL injection (DEFINITY) INTRAVENOUS DIRECTED PRN sodium chloride 0.9 % (flush) 10 mL (BD POSIFLUSH) 10 mL INTRAVENOUS DIRECTED PRN FAMILY HISTORY Problem Relation Age of Onset Colon Cancer Mother Lipids Mother Stroke Maternal Grandmother Anesthesia Problems No Family History Blood Clots No Family History Clotting Disorder No Family History Social History Tobacco Use Smoking status: Never Smokeless tobacco: Never Vaping Use Vaping Use: Never used Substance Use Topics Alcohol use: No Drug use: No REVIEW OF SYSTEMS GENERAL: No weight loss, malaise or fevers/chills HEENT: Negative for frequent or significant headaches, No changes in hearing or vision. NECK: Negative for lumps, goiter, pain and significant neck swelling RESPIRATORY: + SOB CARDIOVASCULAR: Negative for chest pain, leg swelling, orthopnea, or palpitations GI: No nausea, vomiting, or diarrhea/constipation. No hematochezia/melena. No heartburn or reflux symptoms. : No history of dysuria, frequency or incontinence MUSCULOSKELETAL: Negative for joint pain or swelling. SKIN: Negative for lesions, rash, and itching ENDOCRINE: Negative for cold or heat intolerance, polyuria, polydipsia and goiter NEURO: No history of headaches, syncope, paralysis, seizures or tremors MOOD: Negative for depression, anxiety, or suicidal ideation. EXAM: BP 120/80 Pulse (!) 134 Temp 37.9 C (100.2 F) (Left Tympanic) Resp 28 LMP 10/07/2020 SpO2 98% PHYSICAL EXAM: General Appearance: Well appearing, alert, in no acute distress, well-hydrated, well nourished. Skin: Skin color, texture, turgor normal, no suspicious rashes or lesions. Head: Normocephalic, no masses, lesions, tenderness or abnormalities. Eyes: Anicteric sclera. Pupils are equally round and reactive to light. Extraocular movements are intact. Lungs: Mild rhonchi noted in upper lobes bilaterally.. Heart: Tachycardia. ASSESSMENT/PLAN: 1. SOB (shortness of breath) - ICD9: 786.05, ICD10: R06.02 - Due to history and exam 911 was called to have patient transported to the ER for further evaluation. - Low-grade fever and tachycardia noted in office. Follow-up pending recommendations from ER. Discussed treatment plan and patient voices understanding. Patient's questions answered appropriately. Medications and potential side effects were discussed and patient voices understanding. Anisa Field APRN.SHERITA This note was partially generated using [employer] voice recognition system. Note was reviewed for accuracy. There may be minor misspellings or grammar miscues with [employer] voice recognition. documented in this encounter [facility] 04-20-2022 Hospital Discharge instructions Patient Education 04/20/2022 12:23:17 BRONCHITIS, No Abx (Adult) Bronchitis, Viral (Adult: No Abx) You have a viral bronchitis. This illness is contagious during the first few days and is spread through the air by coughing and sneezing, or by direct contact (touching the sick person and then touching your own eyes, nose, or mouth). Most viral illnesses resolve within 10-14 days with rest and simple home remedies, although they may sometimes last for several weeks. Antibiotics will not kill a virus and are generally not prescribed for this condition. Home Care: 1.If symptoms are severe, rest at home for the first 2-3 days. When resuming activity, don't let yourself become overly tired. 2.Do not smoke and avoid the smoke of others. 3.You may use acetaminophen (Tylenol) or ibuprofen (Motrin, Advil) to control fever or pain, unless another pain medicine was prescribed. [NOTE: If you have chronic liver or kidney disease or ever had a stomach ulcer or GI bleeding, talk with your doctor before using these medicines.] (Aspirin should never be used in anyone under 18 years of age who is ill with a fever. It may cause severe liver damage.) 4.Your appetite may be poor so a light diet is fine. Avoid dehydration by drinking 6-8 glasses of fluids per day (water, sport drinks such as Gatorade, juices, tea, soup, etc.). Extra fluids will help loosen secretions in the nose and lung. 5.Wwls-[id number]-sapisus cold medicines will not shorten the length of the illness, but may be helpful for cough (Robitussin DM), sore throat (Chloraseptic lozenges or spray), nasal and sinus congestion (Actifed or Sudafed). [NOTE: Do not use decongestants if you have high blood pressure.] Follow Up with your doctor or as directed by our staff if you are not improving over the next week. NOTE: If you are age 65 or older, or if you have chronic asthma or COPD, we recommend a PNEUMOCOCCAL VACCINATION every five years and a yearly INFLUENZAVACCINATION (FLU-SHOT) every . Ask your doctor about this. If you had an X-ray, a radiologist will review it. You will be notified of any new findings that may affect your care.] Get Prompt Medical Attention if any of the following occur: Fever over 100.4 F (38.0 C) for more than three days Trouble breathing, wheezing or pain with breathing Coughing up blood or increased amounts of colored sputum Weakness, drowsiness, headache, facial pain, ear pain or a stiff neck [id number] [employer]. [address] [place] [address], [place] [address]. All rights reserved. This information is not intended as a substitute for professional medical care. Always follow your healthcare professional's instructions. Follow Up Care 04/20/2022 10:52:59 With:YANIRA PATEL MD Address: [address] [place] [address]- When:3-5 days [facility] Discharge Instructions Thank you for allowing [facility] to assist you with your healthcare needs. The following is important discharge information regarding your hospital visit. Diagnosis from Today's Visit Bronchitis Chest pain with deep breathing What to Do Next Instructions from Your Care Team No qualifying data available. Post Acute Orders No qualifying data available. You Need to Schedule the Following Appointments Follow Up with YANIRA PATEL MD When Within 3-5 days Where: [address] [facility] [place] [id number]- Allergies Coreg naproxen vancomycin Medications Please ask your primary doctor or pharmacist before taking any other medication not listed, including over the counter drugs, herbal medications, vitamins and or supplements as they may interact with your home medications. What How Much When Why Instructions Last Dose New codeine-guaifenesin (codeine-guaifenesin 10 mg-100 mg/ 5 mL oral syrup) 10 Milliliter by mouth Every 6 hours as needed for as needed for cough Bronchitis Duration: 3 Days Printed Prescription Unchanged acetaminophen-hydrocodone (Reydon 325- 5 mg oral tablet) 1 tab(s) by mouth Every 6 hours as needed for as needed for pain Sciatica Duration: 3 Days Unchanged albuterol (albuterol MDI (90 mcg/ inh) CFC free inhalation aerosol) 1 puff(s) by inhalation Once as needed for as needed for wheezing Unchanged albuterol (ProAir HFA MDI (90 mcg/ inh) inhalation aerosol) 2 puff(s) by inhalation Every 4 hours as needed for as needed for wheezing Bronchitis Unchanged atenolol (atenolol 25 mg oral tablet) 1 tab(s) by mouth Once a day Unchanged azithromycin (Zithromax Z-Mandeep 250 mg oral tablet) 1 dose by mouth Every day Bronchitis Duration: 5 Days Unchanged diclofenac (diclofenac sodium 75 mg oral delayed release tablet) 1 tab(s) by mouth Two (2) times a day Unchanged dicyclomine (dicyclomine 10 mg oral capsule) 1 cap by mouth Four (4) times a day Duration: 10 Days Unchanged gabapentin (gabapentin 300 mg oral capsule) 1 cap by mouth Two (2) times a day Unchanged linaclotide (Linzess 290 mcg oral capsule) 1 cap by mouth Once a day Unchanged lisinopril (lisinopril 2.5 mg oral tablet) 1 tab(s) by mouth Once a day Unchanged omeprazole (omeprazole 40 mg oral delayed release capsule) 1 cap by mouth Once a day Unchanged predniSONE (predniSONE 20 mg oral tablet) 2 tab(s) by mouth Every day Bronchitis Duration: 5 Days Unchanged predniSONE (predniSONE 20 mg oral tablet) 1 tab(s) by mouth Every day Sciatica Duration: 5 Days Unchanged venlafaxine (venlafaxine 75 mg oral capsule, extended release) 1 cap by mouth Once a day Please take this list to your next doctor s visit. Bring all medications you take, including over the counter medications, herbals and other supplements with you to your doctor s visit. Patients and families are reminded to discard old lists and to update any records with all medication providers or retail pharmacies. Medication Leaflets codeine and guaifenesin (JOSEY jimenez and karen ortiz sin) Allfen CD, Cheracol with Codeine, Cheratussin AC, Codar GF, Duraganidin NR, Guaiatussin AC, Iophen-C NR, Mar-cof CG, M-Clear, Mytussin AC, Relcof C What is the most important information I should know about codeine and guaifenesin? Codeine can slow or stop your breathing, and may be habit-forming. MISUSE OF THIS MEDICINE CAN CAUSE ADDICTION, OVERDOSE, OR , especially in a child or other person using the medicine without a prescription. Do not give this medicine to anyone under 18. What is codeine and guaifenesin? Codeine is a narcotic cough suppressant. It affects the signals in the brain that trigger cough reflex. Guaifenesin is an expectorant. It helps loosen congestion in your chest and throat, making it easier to cough out through your mouth. Codeine and guaifenesin is a combination medicine used to treat cough and chest congestion caused by allergies, the common cold, or the flu. This medicine will not treat a cough that is caused by smoking, asthma, or emphysema. Codeine and guaifenesin may also be used for purposes not listed in this medication guide. What should I discuss with my healthcare provider before taking codeine and guaifenesin? You should not take this medicine if you are allergic to codeine or guaifenesin. In some people, codeine breaks down rapidly in the liver and reaches higher than normal levels in the body. This can cause dangerously slow breathing and may cause , especially in a child. Do not give this medicine to anyone under 18. To make sure codeine and guaifenesin is safe for you, tell your doctor if you have ever had: a cough with mucus; asthma, COPD, or other breathing disorder; blockage in your digestive tract (stomach or intestines); a head injury or brain tumor; low blood pressure; or drug or alcohol addiction. If you use codeine while you are , your baby could become dependent on the drug. This can cause life-threatening withdrawal symptoms in the baby after it is born. Babies born dependent on habit-forming medicine may need medical treatment for several weeks. Tell your doctor if you are or plan to become . Do not breast-feed. Codeine can pass into breast milk and may cause drowsiness, breathing problems, or in a nursing baby. Do not breast-feed. How should I take codeine and guaifenesin? Follow all directions on your prescription label. Codeine can slow or stop your breathing. Never use codeine and guaifenesin in larger amounts, or for longer than prescribed. Cough or cold medicine is usually taken only for a short time until your symptoms clear up. Codeine may be habit-forming, even at regular doses. Never share this medicine with another person, especially someone with a history of drug abuse or addiction. MISUSE OF NARCOTIC MEDICINE CAN CAUSE ADDICTION, OVERDOSE, OR , especially in a child or other person using the medicine without a prescription. Selling or giving away codeine is against the law. Measure liquid medicine with the dosing syringe provided, or with a special dose-measuring spoon or medicine cup. If you do not have a dose-measuring device, ask your pharmacist for one. Call your doctor if your symptoms do not improve after 7 days of treatment, or if you have a fever with a headache or skin rash. Store at room temperature away from moisture and heat. Do not freeze. Keep track of the amount of medicine used from each new bottle. Codeine is a drug of abuse and you should be aware if anyone is using your medicine improperly or without a prescription. What happens if I miss a dose? Since codeine and guaifenesin is used when needed, you may not be on a dosing schedule. If you are on a schedule, use the missed dose as soon as you remember. Skip the missed dose if it is almost time for your next scheduled dose. Do not use extra medicine to make up the missed dose. What happens if I overdose? Seek emergency medical attention or call the Poison Help line at . A codeine overdose can be fatal, especially in a child or other person using the medicine without a prescription. Overdose symptoms may include slow breathing and heart rate, severe drowsiness, muscle weakness, cold and clammy skin, pinpoint pupils, and fainting. What should I avoid while taking codeine and guaifenesin? This medicine may impair your thinking or reactions. Avoid driving or operating machinery until you know how this medicine will affect you. Dizziness or severe drowsiness can cause falls or other accidents. Do not drink alcohol. Dangerous side effects or could occur. Ask a doctor or pharmacist before using any other cough or cold medicine. Many combination medicines contain guaifensin. Taking certain products together can cause you to get too much of this medicine. What are the possible side effects of codeine and guaifenesin? Get emergency medical help if you have signs of an allergic reaction: hives; difficult breathing; swelling of your face, lips, tongue, or throat. Like other narcotic medications, codeine can slow your breathing. may occur if breathing becomes too weak. A person caring for you should seek emergency medical attention if you have slow breathing with long pauses, blue colored lips, or if you are hard to wake up. Stop using this medicine and call your doctor at once if you have: noisy breathing, sighing, shallow breathing; a slow heart rate or weak pulse; severe dizziness or drowsiness; confusion, hallucinations, unusual thoughts or behavior; little or no urinating; severe constipation; or slow heart rate, weak or shallow breathing. Serious side effects may be more likely in older adults and those who are overweight, malnourished, or debilitated. Common side effects may include: constipation; or mild drowsiness. This is not a complete list of side effects and others may occur. Call your doctor for medical advice about side effects. You may report side effects to FDA at 4-984-DRR-9838. What other drugs will affect codeine and guaifenesin? Taking codeine and guaifenesin with other drugs that make you sleepy or slow your breathing can cause dangerous side effects or . Ask your doctor before taking a sleeping pill, narcotic pain medicine, prescription cough medicine, a muscle relaxer, or medicine for anxiety, depression, or seizures. Other drugs may interact with codeine and guaifenesin, including prescription and lfxo-tnr-emrsbxk medicines, vitamins, and herbal products. Tell your doctor about all your current medicines and any medicine you start or stop using. Where can I get more information? Your pharmacist can provide more information about codeine and guaifenesin. Remember, keep this and all other medicines out of the reach of children, never share your medicines with others, and use this medication only for the indication prescribed. Every effort has been made to ensure that the information provided by [employer]. ('[employer]') is accurate, up-to-date, and complete, but no guarantee is made to that effect. Drug information contained herein may be time sensitive. [employer] information has been compiled for use by healthcare practitioners and consumers in the [place] and therefore [employer] does not warrant that uses outside of the [place] are appropriate, unless specifically indicated otherwise. Fwd: [employer] drug information does not endorse drugs, diagnose patients or recommend therapy. Fwd: [employer] drug information is an informational resource designed to assist licensed healthcare practitioners in caring for their patients and/or to serve consumers viewing this service as a supplement to, and not a substitute for, the expertise, skill, knowledge and judgment of healthcare practitioners. The absence of a warning for a given drug or drug combination in no way should be construed to indicate that the drug or drug combination is safe, effective or appropriate for any given patient. [employer] does not assume any responsibility for any aspect of healthcare administered with the aid of information [employer] provides. The information contained herein is not intended to cover all possible uses, directions, precautions, warnings, drug interactions, allergic reactions, or adverse effects. If you have questions about the drugs you are taking, check with your doctor, nurse or pharmacist. Copyright 9479-6247 [employer]. Version: 8.02. Revision Date: 06/28/2017. Education Materials Bronchitis, Viral (Adult: No Abx) You have a viral bronchitis. This illness is contagious during the first few days and is spread through the air by coughing and sneezing, or by direct contact (touching the sick person and then touching your own eyes, nose, or mouth). Most viral illnesses resolve within 10-14 days with rest and simple home remedies, although they may sometimes last for several weeks. Antibiotics will not kill a virus and are generally not prescribed for this condition. Home Care: 1. If symptoms are severe, rest at home for the first 2-3 days. When resuming activity, don't let yourself become overly tired. 2. Do not smoke and avoid the smoke of others. 3. You may use acetaminophen (Tylenol) or ibuprofen (Motrin, Advil) to control fever or pain, unless another pain medicine was prescribed. [NOTE: If you have chronic liver or kidney disease or ever had a stomach ulcer or GI bleeding, talk with your doctor before using these medicines.] (Aspirin should never be used in anyone under 18 years of age who is ill with a fever. It may cause severe liver damage.) 4. Your appetite may be poor so a light diet is fine. Avoid dehydration by drinking 6-8 glasses of fluids per day (water, sport drinks such as Gatorade, juices, tea, soup, etc.). Extra fluids will help loosen secretions in the nose and lung. 5. Uvfg-syi-oewsgpy cold medicines will not shorten the length of the illness, but may be helpful for cough (Robitussin DM), sore throat (Chloraseptic lozenges or spray), nasal and sinus congestion (Actifed or Sudafed). [NOTE: Do not use decongestants if you have high blood pressure.] Follow Up with your doctor or as directed by our staff if you are not improving over the next week. NOTE: If you are age 65 or older, or if you have chronic asthma or COPD, we recommend a PNEUMOCOCCAL VACCINATION every five years and a yearly INFLUENZAVACCINATION (FLU-SHOT) every . Ask your doctor about this. If you had an X-ray, a radiologist will review it. You will be notified of any new findings that may affect your care.] Get Prompt Medical Attention if any of the following occur: Fever over 100.4 F (38.0 C) for more than three days Trouble breathing, wheezing or pain with breathing Coughing up blood or increased amounts of colored sputum Weakness, drowsiness, headache, facial pain, ear pain or a stiff neck 4466-4660 [employer]. [address] [place] [address]. All rights reserved. This information is not intended as a substitute for professional medical care. Always follow your healthcare professional's instructions. Additional Information VACCINATE! IT SAVES LIVES! Members of the community who have not yet received the COVID-19 vaccine and would like to receive it can visit one of [facility] vaccine clinics. There are many vaccine clinic locations within the [facility]. For locations and available times, please visit [email or web address]. It is important to note that some COVID mobile vaccine clinics are held outdoors and may be canceled in rainy or stormy conditions. To learn more about pediatric vaccinations (ages 5-11), we invite you to visit the [facility] webpage. [email or web address] To learn more about the COVID-19 vaccine, we invite you to visit the [place] website for a list of frequently asked questions. [email or web address] ently_[email or web address] [place] [employer] Patient Portal Access Instructions: Stay connected with your healthcare team and access your personal medical information anytime with the [facility] Patient Portal. If you would like a full copy of your medical records please contact the [facility] Medical Records Department Wednesday through Wednesday between 8a.m. and 4:30p.m. Please follow the directions below to access the portal: 1.Access the email account you provided upon registration to the hospital.2.Look for an invitation email from [facility].3.Open the email and access the invitation link: Accept Invitation to [facility]4.Fill in the required sarabia to create your account. Sign into [email or web address] with your username and password that you created in the above steps to stay up to date. You can then view a summary of results, a summary of your visits, and the ability to download your summaries to your computer or send the information securely to a physician. Remember that your healthcare information is confidential, so carefully consider who you will allow to register on the [facility] Patient Portal for access to your information. You can also access the [employer] Patient Portal on the [employer] de. Simply click on Health Records under Health Data and then click on the [employer] logo. HOW TO SAFELY DISPOSE OF PRESCRIPTION MEDICATIONS Please use one of the following methods to safely dispose of your unused medications. 1.Use a drug disposal kit: the drug disposal pouch allows you to safely discard your old and unused drugs. Ask your nurse to give you one when you are discharged.2.Visit a local take-back location: Many local pharmacies and police departments have programs that collect old and unwanted prescription drugs. Call your local pharmacy or go to http://TrekCafe.RealtyAPX/6L2Ji9g to find one close to you.3.Make use of household items: Use cat litter or old coffee grounds to dispose medications if other options are not available. Mix your drugs with these household products, seal them in an airtight container and throw it into the garbage. Call [facility]: [phone] to be sure your drugs can be disposed of in this way. Some medicines may require a different approach.4.Never flush your medications down the toilet. IF YOU HAVE BEEN PRESCRIBED AN OPIOIDS FOR PAIN If you have been prescribed an opioid (such as hydrocodone, oxycodone or morphine), it is critical to understand the possible side effects and risks of opioid pain medications. Even when taken as directed, opioids can have several side effects including: Tolerance, meaning you might need to take more of a medication for the same pain relief. Nausea, vomiting and/or constipation. Sleepiness, dizziness, dry mouth, confusion, depression or itching. Physical dependence, meaning you have withdrawal symptoms when a medication is stopped ? this can develop within a few days. KNOW YOUR RESPONSIBILITIES It is important to know exactly how much and how often to take the opioid pain medications you are prescribed. Never take opioids in higher amounts or more often than prescribed. Do not combine opioids with alcohol or other drugs that cause drowsiness, such as benzodiazepines, also known as benzos, including diazepam and alprazolam, muscle relaxants or sleep aids. Never sell or share prescription opioids. This is illegal. Store opioids in a secure place and out of reach of others (including children, family, friends and visitors). The last page(s) of this document has been signed and retained as a CHART COPY Signatures Patient Education Materials BRONCHITIS, No Abx (Adult) Medication Leaflets codeine and guaifenesin My discharge plan and instructions have been reviewed and explained to me and I,BLOUGH, RAZA understand my current condition and have read and understand these discharge instructions. I have received a written copy of the plan/instructions. If I have questions, I am aware that I should contact my doctor. Patient/Director Speech Language Signature: Date/Time: Relationship to Patient: ___ Witness Name/Signature: Date/Time: [facility] 04-20-2022 Note ORIGINAL EXAMINATION: ONE XRAY VIEW OF THE CHEST04/20/2022 11:46 am COMPARISON: 05/20/2021 HISTORY: ORDERING SYSTEM PROVIDED HISTORY: Reason for Exam: SOB FINDINGS: The cardiomediastinal contours are normal. Pacer/defibrillator device is similar to the prior exam. Lung volumes are low with hypoventilatory changes. No pleural fluid or pneumothorax. No aggressive osseous lesions identified. IMPRESSION: Low lung volumes with hypoventilatory change Interpreted by: Ruben Kitchen MD Preliminary Report By: Ruben Kitchen MD Electronically signed By Ruben Kitchen MD Dictated Date: 04/20/2022 12:14:48 PM Prelim Date: 04/20/2022 12:15:32 PM Sign Date: 04/20/2022 12:15:32 PM Ordering Provider: MARY ALICE MOYER [facility] 04-20-2022 SARS-CoV-2 (COVID-19) RNA AMY+probe Ql (Nph) Negative *NA* (04/20/22 11:47 AM) AO Auto Urine SS 04-20-2022 Note ORIGINAL EXAMINATION: ONE XRAY VIEW OF THE CHEST04/20/2022 11:46 am COMPARISON: 05/20/2021 HISTORY: ORDERING SYSTEM PROVIDED HISTORY: Reason for Exam: SOB FINDINGS: The cardiomediastinal contours are normal. Pacer/defibrillator device is similar to the prior exam. Lung volumes are low with hypoventilatory changes. No pleural fluid or pneumothorax. No aggressive osseous lesions identified. IMPRESSION: Low lung volumes with hypoventilatory change Interpreted by: Ruben Kitchen MD Preliminary Report By: Ruben Kitchen MD Electronically signed By Ruben Kitchen MD Dictated Date: 04/20/2022 12:14:48 PM Prelim Date: 04/20/2022 12:15:32 PM Sign Date: 04/20/2022 12:15:32 PM Ordering Provider: MARY ALICE FOREMAN [facility] 04-16-2022 Influenza virus A and B RNA and SARS-CoV-2 (COVID-19) N gene panel AMY+probe (Resp) COVID 19 RESULT: SARS-CoV-2 (Agent of COVID-19) Not Detected by RT-PCR or equivalent method. xavier DEPV-PfL-7_[employer] (LUIS)_EUA This test was developed and its performance characteristics determined by [facility]'s [facility] [place]. This test has been authorized by FDA under an Emergency Use Authorization (EUA). This test has been validated in accordance with the FDA's Guidance Document Policy for Diagnostics Testing in Laboratories Certified to Perform High Complexity Testing under CLIA prior to Emergency use Authorization for Coronavirus Disease 2019 during the Public Health Emergency issued on August 12, 2019. Test performed by [facility], [facility] [place], [facility] [place], [place] [address]. INFLUENZA A PCR: Negative for Influenza A by RT-PCR INFLUENZA B PCR: Negative for Influenza B by RT-PCR [facility] documented as of this encounter (statuses as of 09/03/2021) [facility]01-29-2011 History of Past illness Narrative* Problem Noted Date Resolved Date Leukocytosis 07/12/2010 07/17/2010 Overview: Resolved SUMMARY 07/12/2010 07/17/2010 Overview: 40yo recently diagnosed with nonischemic cardiomyopathy-possible . NYHA-stage B with LBBB. Mother of 5 children. EF-35%. Sp PPM/AICD placed on 06/09/2010; 07/11/10-Left mini postero lateral thoracothomy, 2 LV bipolar leads placed on the lateral wall of LV, leads tunneled and connected to AICD . Kameron drain intact-removed today 07/13-CXR verified by Dr. Arce DVT prophylaxis-encourage ambulation and PAS stockings while in bed Atelectasis/fluid overload 07/12/201007/17 Overview: CXR-atelectasis. On RA. Kameron drain with minimal drng-will remove today. Holding lasix d/t marginal BP's. Encourage ambulation, C&DB, and pep therapy. discharge planning 07/10/2010 07/17/2010 Overview: Pt from [place], [place]. Mother of 5 children ages 6-16yo. Discharge today. No discharge needs. Pre-op testing 07/10/2010 07/17/2010 Overview: Images from the original note were not included. [facility] PRE[facility] Surgeon: Sj Hayward M.D. Informed Consent Completed: No STS Score: unsupported CAD: No Is intended procedure a CABG: No - H & P completed: Yes 06/27 PA/LAT: Completed CT: N/A MRI: N/A LE US: N/A Cath: No Echo:Completed EKG: Completed EF %: 55 PI's: N/A Carotid: N/A Mapping: N/A Dental: N/A PFT's: N/A No results found for this basename: WBC,HB,HCT,PLT,INR,CREAT in the last 72 hours UA: pending ABO/ABO Confirmed: Yes Blood ordered: No SA Swab: Yes - results: p Last Dose of Anticoagulation: none Op Note: N/A Pacemaker Check: Yes Consults: EPS DM: No Cardiac Surgical prep: Yes SIGNATURE: Reg Wells Rn CHECKED BY: DATE of SERVICE: 07/10/2010 TIME of SERVICE: 2:55 PM Pain in joint, forearm 04/21/2010 1 documented as of this encounter (statuses as of 09/09/2021) [facility]01-29-2011 History of Past illness Narrative* Problem Noted Date Resolved Date Leukocytosis 07/12/2010 07/17/2010 Overview: Resolved SUMMARY 07/12/2010 07/17/2010 Overview: 40yo recently diagnosed with nonischemic cardiomyopathy-possible . NYHA-stage B with LBBB. Mother of 5 children. EF-35%. Sp PPM/AICD placed on 06/09/2010; 07/11/10-Left mini postero lateral thoracothomy, 2 LV bipolar leads placed on the lateral wall of LV, leads tunneled and connected to AICD . Kameron drain intact-removed today 07/13-CXR verified by Dr. Arce DVT prophylaxis-encourage ambulation and PAS stockings while in bed Atelectasis/fluid overload 07/12/201007/17 Overview: CXR-atelectasis. On RA. Kameron drain with minimal drng-will remove today. Holding lasix d/t marginal BP's. Encourage ambulation, C&DB, and pep therapy. discharge planning 07/10/2010 07/17/2010 Overview: Pt from [place]. Mother of 5 children ages 6-16yo. Discharge today. No discharge needs. Pre-op testing 07/10/2010 07/17/2010 Overview: Images from the original note were not included. [facility] PRE-OP CHECKLIST Surgeon: Sj Hayward M.D. Informed Consent Completed: No STS Score: unsupported CAD: No Is intended procedure a CABG: No - H & P completed: Yes 06/27 PA/LAT: Completed CT: N/A MRI: N/A LE US: N/A Cath: No Echo:Completed EKG: Completed EF %: 55 PI's: N/A Carotid: N/A Mapping: N/A Dental: N/A PFT's: N/A No results found for this basename: WBC,HB,HCT,PLT,INR,CREAT in the last 72 hours UA: pending ABO/ABO Confirmed: Yes Blood ordered: No SA Swab: Yes - results: p Last Dose of Anticoagulation: none Op Note: N/A Pacemaker Check: Yes Consults: EPS DM: No Cardiac Surgical prep: Yes SIGNATURE: Reg Wells Rn CHECKED BY: DATE of SERVICE: 07/10/2010 TIME of SERVICE: 2:55 PM Pain in joint, forearm 04/21/2010 1 documented as of this encounter (statuses as of 09/10/2021) [facility]01-29-2011 History of Past illness Narrative* Problem Noted Date Resolved Date Leukocytosis 07/12/2010 07/17/2010 Overview: Resolved SUMMARY 07/12/2010 07/17/2010 Overview: 40yo recently diagnosed with nonischemic cardiomyopathy-possible . NYHA-stage B with LBBB. Mother of 5 children. EF-35%. Sp PPM/AICD placed on 06/09/2010; 07/11/10-Left mini postero lateral thoracothomy, 2 LV bipolar leads placed on the lateral wall of LV, leads tunneled and connected to AICD . Kameron drain intact-removed today 07/13-CXR verified by Dr. Arce DVT prophylaxis-encourage ambulation and PAS stockings while in bed Atelectasis/fluid overload 07/12/201007/17 Overview: CXR-atelectasis. On RA. Kameron drain with minimal drng-will remove today. Holding lasix d/t marginal BP's. Encourage ambulation, C&DB, and pep therapy. discharge planning 07/10/2010 07/17/2010 Overview: Pt from [place]. Mother of 5 children ages 6-16yo. Discharge today. No discharge needs. Pre-op testing 07/10/2010 07/17/2010 Overview: Images from the original note were not included. [facility] PRE-OP CHECKLIST Surgeon: Sj Hayward M.D. Informed Consent Completed: No STS Score: unsupported CAD: No Is intended procedure a CABG: No - H & P completed: Yes 06/27 PA/LAT: Completed CT: N/A MRI: N/A LE US: N/A Cath: No Echo:Completed EKG: Completed EF %: 55 PI's: N/A Carotid: N/A Mapping: N/A Dental: N/A PFT's: N/A No results found for this basename: WBC,HB,HCT,PLT,INR,CREAT in the last 72 hours UA: pending ABO/ABO Confirmed: Yes Blood ordered: No SA Swab: Yes - results: p Last Dose of Anticoagulation: none Op Note: N/A Pacemaker Check: Yes Consults: EPS DM: No Cardiac Surgical prep: Yes SIGNATURE: Reg Wells Rn CHECKED BY: DATE of SERVICE: 07/10/2010 TIME of SERVICE: 2:55 PM Pain in joint, forearm 04/21/2010 1 documented as of this encounter (statuses as of 09/15/2021) [facility]01-29-2011 History of Past illness Narrative* Problem Noted Date Resolved Date Leukocytosis 07/12/2010 07/17/2010 Overview: Resolved SUMMARY 07/12/2010 07/17/2010 Overview: 40yo recently diagnosed with nonischemic cardiomyopathy-possible . NYHA-stage B with LBBB. Mother of 5 children. EF-35%. Sp PPM/AICD placed on 06/09/2010; 07/11/10-Left mini postero lateral thoracothomy, 2 LV bipolar leads placed on the lateral wall of LV, leads tunneled and connected to AICD . Kameron drain intact-removed today 07/13-CXR verified by Dr. Arce DVT prophylaxis-encourage ambulation and PAS stockings while in bed Atelectasis/fluid overload 07/12/201007/17 Overview: CXR-atelectasis. On RA. Kameron drain with minimal drng-will remove today. Holding lasix d/t marginal BP's. Encourage ambulation, C&DB, and pep therapy. discharge planning 07/10/2010 07/17/2010 Overview: Pt from [place]. Mother of 5 children ages 6-16yo. Discharge today. No discharge needs. Pre-op testing 07/10/2010 07/17/2010 Overview: Images from the original note were not included. [facility] PRE-OP CHECKLIST Surgeon: Sj Hayward M.D. Informed Consent Completed: No STS Score: unsupported CAD: No Is intended procedure a CABG: No - H & P completed: Yes 06/27 PA/LAT: Completed CT: N/A MRI: N/A LE US: N/A Cath: No Echo:Completed EKG: Completed EF %: 55 PI's: N/A Carotid: N/A Mapping: N/A Dental: N/A PFT's: N/A No results found for this basename: WBC,HB,HCT,PLT,INR,CREAT in the last 72 hours UA: pending ABO/ABO Confirmed: Yes Blood ordered: No SA Swab: Yes - results: p Last Dose of Anticoagulation: none Op Note: N/A Pacemaker Check: Yes Consults: EPS DM: No Cardiac Surgical prep: Yes SIGNATURE: Reg Wells Rn CHECKED BY: DATE of SERVICE: 07/10/2010 TIME of SERVICE: 2:55 PM Pain in joint, forearm 04/21/2010 1 documented as of this encounter (statuses as of 09/17/2021) [facility]01-29-2011 History of Past illness Narrative* Problem Noted Date Resolved Date Leukocytosis 07/12/2010 07/17/2010 Overview: Resolved SUMMARY 07/12/2010 07/17/2010 Overview: 40yo recently diagnosed with nonischemic cardiomyopathy-possible . NYHA-stage B with LBBB. Mother of 5 children. EF-35%. Sp PPM/AICD placed on 06/09/2010; 07/11/10-Left mini postero lateral thoracothomy, 2 LV bipolar leads placed on the lateral wall of LV, leads tunneled and connected to AICD . Kameron drain intact-removed today 07/13-CXR verified by Dr. Arce DVT prophylaxis-encourage ambulation and PAS stockings while in bed Atelectasis/fluid overload 07/12/201007/17 Overview: CXR-atelectasis. On RA. Kameron drain with minimal drng-will remove today. Holding lasix d/t marginal BP's. Encourage ambulation, C&DB, and pep therapy. discharge planning 07/10/2010 07/17/2010 Overview: Pt from [place]. Mother of 5 children ages 6-16yo. Discharge today. No discharge needs. Pre-op testing 07/10/2010 07/17/2010 Overview: Images from the original note were not included. [facility] PRE-OP CHECKLIST Surgeon: Sj Hayward M.D. Informed Consent Completed: No STS Score: unsupported CAD: No Is intended procedure a CABG: No - H & P completed: Yes 06/27 PA/LAT: Completed CT: N/A MRI: N/A LE US: N/A Cath: No Echo:Completed EKG: Completed EF %: 55 PI's: N/A Carotid: N/A Mapping: N/A Dental: N/A PFT's: N/A No results found for this basename: WBC,HB,HCT,PLT,INR,CREAT in the last 72 hours UA: pending ABO/ABO Confirmed: Yes Blood ordered: No SA Swab: Yes - results: p Last Dose of Anticoagulation: none Op Note: N/A Pacemaker Check: Yes Consults: EPS DM: No Cardiac Surgical prep: Yes SIGNATURE: Reg Wells Rn CHECKED BY: DATE of SERVICE: 07/10/2010 TIME of SERVICE: 2:55 PM Pain in joint, forearm 04/21/2010 1 documented as of this encounter (statuses as of 10/02/2021) [facility]01-29-2011 History of Past illness Narrative* Problem Noted Date Resolved Date Leukocytosis 07/12/2010 07/17/2010 Overview: Resolved SUMMARY 07/12/2010 07/17/2010 Overview: 40yo recently diagnosed with nonischemic cardiomyopathy-possible . NYHA-stage B with LBBB. Mother of 5 children. EF-35%. Sp PPM/AICD placed on 06/09/2010; 07/11/10-Left mini postero lateral thoracothomy, 2 LV bipolar leads placed on the lateral wall of LV, leads tunneled and connected to AICD . Kameron drain intact-removed today 07/13-CXR verified by Dr. Arce DVT prophylaxis-encourage ambulation and PAS stockings while in bed Atelectasis/fluid overload 07/12/201007/17 Overview: CXR-atelectasis. On RA. Kameron drain with minimal drng-will remove today. Holding lasix d/t marginal BP's. Encourage ambulation, C&DB, and pep therapy. discharge planning 07/10/2010 07/17/2010 Overview: Pt from [place], [place]. Mother of 5 children ages 6-16yo. Discharge today. No discharge needs. Pre-op testing 07/10/2010 07/17/2010 Overview: Images from the original note were not included. [facility] Surgeon: Sj Hayward M.D. Informed Consent Completed: No STS Score: unsupported CAD: No Is intended procedure a CABG: No - H & P completed: Yes 06/27 PA/LAT: Completed CT: N/A MRI: N/A LE US: N/A Cath: No Echo:Completed EKG: Completed EF %: 55 PI's: N/A Carotid: N/A Mapping: N/A Dental: N/A PFT's: N/A No results found for this basename: WBC,HB,HCT,PLT,INR,CREAT in the last 72 hours UA: pending ABO/ABO Confirmed: Yes Blood ordered: No SA Swab: Yes - results: p Last Dose of Anticoagulation: none Op Note: N/A Pacemaker Check: Yes Consults: EPS DM: No Cardiac Surgical prep: Yes SIGNATURE: Reg Wells Rn CHECKED BY: DATE of SERVICE: 07/10/2010 TIME of SERVICE: 2:55 PM Pain in joint, forearm 04/21/2010 1 documented as of this encounter (statuses as of 10/06/2021) [facility]01-29-2011 History of Past illness Narrative* Problem Noted Date Resolved Date Leukocytosis 07/12/2010 07/17/2010 Overview: Resolved SUMMARY 07/12/2010 07/17/2010 Overview: 40yo recently diagnosed with nonischemic cardiomyopathy-possible . NYHA-stage B with LBBB. Mother of 5 children. EF-35%. Sp PPM/AICD placed on 06/09/2010; 07/11/10-Left mini postero lateral thoracothomy, 2 LV bipolar leads placed on the lateral wall of LV, leads tunneled and connected to AICD . Kameron drain intact-removed today 07/13-CXR verified by Dr. Arce DVT prophylaxis-encourage ambulation and PAS stockings while in bed Atelectasis/fluid overload 07/12/201007/17 Overview: CXR-atelectasis. On RA. Kameron drain with minimal drng-will remove today. Holding lasix d/t marginal BP's. Encourage ambulation, C&DB, and pep therapy. discharge planning 07/10/2010 07/17/2010 Overview: Pt from [place]. Mother of 5 children ages 6-16yo. Discharge today. No discharge needs. Pre-op testing 07/10/2010 07/17/2010 Overview: Images from the original note were not included. [facility] Surgeon: Sj Hayward M.D. Informed Consent Completed: No STS Score: unsupported CAD: No Is intended procedure a CABG: No - H & P completed: Yes 06/27 PA/LAT: Completed CT: N/A MRI: N/A LE US: N/A Cath: No Echo:Completed EKG: Completed EF %: 55 PI's: N/A Carotid: N/A Mapping: N/A Dental: N/A PFT's: N/A No results found for this basename: WBC,HB,HCT,PLT,INR,CREAT in the last 72 hours UA: pending ABO/ABO Confirmed: Yes Blood ordered: No SA Swab: Yes - results: p Last Dose of Anticoagulation: none Op Note: N/A Pacemaker Check: Yes Consults: EPS DM: No Cardiac Surgical prep: Yes SIGNATURE: Reg Wells Rn CHECKED BY: DATE of SERVICE: 07/10/2010 TIME of SERVICE: 2:55 PM Pain in joint, forearm 04/21/2010 1 documented as of this encounter (statuses as of 11/17/2021) [facility]01-29-2011 History of Past illness Narrative* Problem Noted Date Resolved Date Leukocytosis 07/12/2010 07/17/2010 Overview: Resolved SUMMARY 07/12/2010 07/17/2010 Overview: 40yo recently diagnosed with nonischemic cardiomyopathy-possible . NYHA-stage B with LBBB. Mother of 5 children. EF-35%. Sp PPM/AICD placed on 06/09/2010; 07/11/10-Left mini postero lateral thoracothomy, 2 LV bipolar leads placed on the lateral wall of LV, leads tunneled and connected to AICD . Kameron drain intact-removed today 07/13-CXR verified by Dr. Arce DVT prophylaxis-encourage ambulation and PAS stockings while in bed Atelectasis/fluid overload 07/12/201007/17 Overview: CXR-atelectasis. On RA. Kameron drain with minimal drng-will remove today. Holding lasix d/t marginal BP's. Encourage ambulation, C&DB, and pep therapy. discharge planning 07/10/2010 07/17/2010 Overview: [place] Mother of 5 children ages 6-16yo. Discharge today. No discharge needs. Pre-op testing 07/10/2010 07/17/2010 Overview: Images from the original note were not included. [facility] Surgeon: Sj Hayward M.D. Informed Consent Completed: No STS Score: unsupported CAD: No Is intended procedure a CABG: No - H & P completed: Yes 06/27 PA/LAT: Completed CT: N/A MRI: N/A LE US: N/A Cath: No Echo:Completed EKG: Completed EF %: 55 PI's: N/A Carotid: N/A Mapping: N/A Dental: N/A PFT's: N/A No results found for this basename: WBC,HB,HCT,PLT,INR,CREAT in the last 72 hours UA: pending ABO/ABO Confirmed: Yes Blood ordered: No SA Swab: Yes - results: p Last Dose of Anticoagulation: none Op Note: N/A Pacemaker Check: Yes Consults: EPS DM: No Cardiac Surgical prep: Yes SIGNATURE: Reg Wells Rn CHECKED BY: DATE of SERVICE: 07/10/2010 TIME of SERVICE: 2:55 PM Pain in joint, forearm 04/21/2010 1 documented as of this encounter (statuses as of 12/01/2021) [facility]01-29-2011 History of Past illness Narrative* Problem Noted Date Resolved Date Leukocytosis 07/12/2010 07/17/2010 Overview: Resolved SUMMARY 07/12/2010 07/17/2010 Overview: 40yo recently diagnosed with nonischemic cardiomyopathy-possible . NYHA-stage B with LBBB. Mother of 5 children. EF-35%. Sp PPM/AICD placed on 06/09/2010; 07/11/10-Left mini postero lateral thoracothomy, 2 LV bipolar leads placed on the lateral wall of LV, leads tunneled and connected to AICD . Kameron drain intact-removed today 07/13-CXR verified by Dr. Arce DVT prophylaxis-encourage ambulation and PAS stockings while in bed Atelectasis/fluid overload 07/12/201007/17 Overview: CXR-atelectasis. On RA. Kameron drain with minimal drng-will remove today. Holding lasix d/t marginal BP's. Encourage ambulation, C&DB, and pep therapy. discharge planning 07/10/2010 07/17/2010 Overview: Pt from [place]. Mother of 5 children ages 6-16yo. Discharge today. No discharge needs. Pre-op testing 07/10/2010 07/17/2010 Overview: Images from the original note were not included. [facility] Surgeon: Sj Hayward M.D. Informed Consent Completed: No STS Score: unsupported CAD: No Is intended procedure a CABG: No - H & P completed: Yes 06/27 PA/LAT: Completed CT: N/A MRI: N/A LE US: N/A Cath: No Echo:Completed EKG: Completed EF %: 55 PI's: N/A Carotid: N/A Mapping: N/A Dental: N/A PFT's: N/A No results found for this basename: WBC,HB,HCT,PLT,INR,CREAT in the last 72 hours UA: pending ABO/ABO Confirmed: Yes Blood ordered: No SA Swab: Yes - results: p Last Dose of Anticoagulation: none Op Note: N/A Pacemaker Check: Yes Consults: EPS DM: No Cardiac Surgical prep: Yes SIGNATURE: Reg Wells Rn CHECKED BY: DATE of SERVICE: 07/10/2010 TIME of SERVICE: 2:55 PM Pain in joint, forearm 04/21/2010 1 documented as of this encounter (statuses as of 01/15/2022) [facility]01-29-2011 History of Past illness Narrative* Problem Noted Date Resolved Date Leukocytosis 07/12/2010 07/17/2010 Overview: Resolved SUMMARY 07/12/2010 07/17/2010 Overview: 40yo recently diagnosed with nonischemic cardiomyopathy-possible . NYHA-stage B with LBBB. Mother of 5 children. EF-35%. Sp PPM/AICD placed on 06/09/2010; 07/11/10-Left mini postero lateral thoracothomy, 2 LV bipolar leads placed on the lateral wall of LV, leads tunneled and connected to AICD . Kameron drain intact-removed today 07/13-CXR verified by Dr. Arce DVT prophylaxis-encourage ambulation and PAS stockings while in bed Atelectasis/fluid overload 07/12/201007/17 Overview: CXR-atelectasis. On RA. Kameron drain with minimal drng-will remove today. Holding lasix d/t marginal BP's. Encourage ambulation, C&DB, and pep therapy. discharge planning 07/10/2010 07/17/2010 Overview: Pt from [place]. Mother of 5 children ages 6-16yo. Discharge today. No discharge needs. Pre-op testing 07/10/2010 07/17/2010 Overview: Images from the original note were not included. [facility] Surgeon: Sj Hayward M.D. Informed Consent Completed: No STS Score: unsupported CAD: No Is intended procedure a CABG: No - H & P completed: Yes 06/27 PA/LAT: Completed CT: N/A MRI: N/A LE US: N/A Cath: No Echo:Completed EKG: Completed EF %: 55 PI's: N/A Carotid: N/A Mapping: N/A Dental: N/A PFT's: N/A No results found for this basename: WBC,HB,HCT,PLT,INR,CREAT in the last 72 hours UA: pending ABO/ABO Confirmed: Yes Blood ordered: No SA Swab: Yes - results: p Last Dose of Anticoagulation: none Op Note: N/A Pacemaker Check: Yes Consults: EPS DM: No Cardiac Surgical prep: Yes SIGNATURE: Reg Wells Rn CHECKED BY: DATE of SERVICE: 07/10/2010 TIME of SERVICE: 2:55 PM Pain in joint, forearm 04/21/2010 1 documented as of this encounter (statuses as of 03/23/2022) [facility]01-[facility]-2011 History of Past illness Narrative* Problem Noted Date Resolved Date Leukocytosis 07/12/2010 07/17/2010 Overview: Resolved SUMMARY 07/12/2010 07/17/2010 Overview: 40yo recently diagnosed with nonischemic cardiomyopathy-possible . NYHA-stage B with LBBB. Mother of 5 children. EF-35%. Sp PPM/AICD placed on 06/09/2010; 07/11/10-Left mini postero lateral thoracothomy, 2 LV bipolar leads placed on the lateral wall of LV, leads tunneled and connected to AICD . Kameron drain intact-removed today 07/13-CXR verified by Dr. Arce DVT prophylaxis-encourage ambulation and PAS stockings while in bed Atelectasis/fluid overload 07/12/201007/17 Overview: CXR-atelectasis. On RA. Kameron drain with minimal drng-will remove today. Holding lasix d/t marginal BP's. Encourage ambulation, C&DB, and pep therapy. discharge planning 07/10/2010 07/17/2010 Overview: Pt [place] Mother of 5 children ages 6-16yo. Discharge today. No discharge needs. Pre-op testing 07/10/2010 07/17/2010 Overview: Images from the original note were not included. [facility] Surgeon: Sj Hayward M.D. Informed Consent Completed: No STS Score: unsupported CAD: No Is intended procedure a CABG: No - H & P completed: Yes 06/27 PA/LAT: Completed CT: N/A MRI: N/A LE US: N/A Cath: No Echo:Completed EKG: Completed EF %: 55 PI's: N/A Carotid: N/A Mapping: N/A Dental: N/A PFT's: N/A No results found for this basename: WBC,HB,HCT,PLT,INR,CREAT in the last 72 hours UA: pending ABO/ABO Confirmed: Yes Blood ordered: No SA Swab: Yes - results: p Last Dose of Anticoagulation: none Op Note: N/A Pacemaker Check: Yes Consults: EPS DM: No Cardiac Surgical prep: Yes SIGNATURE: Reg Wells Rn CHECKED BY: DATE of SERVICE: 07/10/2010 TIME of SERVICE: 2:55 PM Pain in joint, forearm 04/21/2010 1 documented as of this encounter (statuses as of 04/16/2022) [facility]01-[facility]-2011 History of Past illness Narrative* Problem Noted Date Resolved Date Leukocytosis 07/12/2010 07/17/2010 Overview: Resolved SUMMARY 07/12/2010 07/17/2010 Overview: 40yo recently diagnosed with nonischemic cardiomyopathy-possible . NYHA-stage B with LBBB. Mother of 5 children. EF-35%. Sp PPM/AICD placed on 06/09/2010; 07/11/10-Left mini postero lateral thoracothomy, 2 LV bipolar leads placed on the lateral wall of LV, leads tunneled and connected to AICD . Kameron drain intact-removed today 07/13-CXR verified by Dr. Arce DVT prophylaxis-encourage ambulation and PAS stockings while in bed Atelectasis/fluid overload 07/12/201007/17 Overview: CXR-atelectasis. On RA. Kameron drain with minimal drng-will remove today. Holding lasix d/t marginal BP's. Encourage ambulation, C&DB, and pep therapy. discharge planning 07/10/2010 07/17/2010 Overview: Pt from [place]. Mother of 5 children ages 6-16yo. Discharge today. No discharge needs. Pre-op testing 07/10/2010 07/17/2010 Overview: Images from the original note were not included. [facility] Surgeon: Sj Hayward M.D. Informed Consent Completed: No STS Score: unsupported CAD: No Is intended procedure a CABG: No - H & P completed: Yes 06/27 PA/LAT: Completed CT: N/A MRI: N/A LE US: N/A Cath: No Echo:Completed EKG: Completed EF %: 55 PI's: N/A Carotid: N/A Mapping: N/A Dental: N/A PFT's: N/A No results found for this basename: WBC,HB,HCT,PLT,INR,CREAT in the last 72 hours UA: pending ABO/ABO Confirmed: Yes Blood ordered: No SA Swab: Yes - results: p Last Dose of Anticoagulation: none Op Note: N/A Pacemaker Check: Yes Consults: EPS DM: No Cardiac Surgical prep: Yes SIGNATURE: Reg Wells Rn CHECKED BY: DATE of SERVICE: 07/10/2010 TIME of SERVICE: 2:55 PM Pain in joint, forearm 04/21/2010 1 documented as of this encounter (statuses as of 04/17/2022) [facility]01[facility]-2011 History of Past illness Narrative* Problem Noted Date Resolved Date Leukocytosis 07/12/2010 07/17/2010 Overview: Resolved SUMMARY 07/12/2010 07/17/2010 Overview: 40yo recently diagnosed with nonischemic cardiomyopathy-possible . NYHA-stage B with LBBB. Mother of 5 children. EF-35%. Sp PPM/AICD placed on 06/09/2010; 07/11/10-Left mini postero lateral thoracothomy, 2 LV bipolar leads placed on the lateral wall of LV, leads tunneled and connected to AICD . Kameron drain intact-removed today 07/13-CXR verified by Dr. Arce DVT prophylaxis-encourage ambulation and PAS stockings while in bed Atelectasis/fluid overload 07/12/201007/17 Overview: CXR-atelectasis. On RA. Kameron drain with minimal drng-will remove today. Holding lasix d/t marginal BP's. Encourage ambulation, C&DB, and pep therapy. discharge planning 07/10/2010 07/17/2010 Overview: Pt from [place]. Mother of 5 children ages 6-16yo. Discharge today. No discharge needs. Pre-op testing 07/10/2010 07/17/2010 Overview: Images from the original note were not included. [facility] Surgeon: Sj Hayward M.D. Informed Consent Completed: No STS Score: unsupported CAD: No Is intended procedure a CABG: No - H & P completed: Yes 06/27 PA/LAT: Completed CT: N/A MRI: N/A LE US: N/A Cath: No Echo:Completed EKG: Completed EF %: 55 PI's: N/A Carotid: N/A Mapping: N/A Dental: N/A PFT's: N/A No results found for this basename: WBC,HB,HCT,PLT,INR,CREAT in the last 72 hours UA: pending ABO/ABO Confirmed: Yes Blood ordered: No SA Swab: Yes - results: p Last Dose of Anticoagulation: none Op Note: N/A Pacemaker Check: Yes Consults: EPS DM: No Cardiac Surgical prep: Yes SIGNATURE: Reg Wells Rn CHECKED BY: DATE of SERVICE: 07/10/2010 TIME of SERVICE: 2:55 PM Pain in joint, forearm 04/21/2010 1 documented as of this encounter (statuses as of 04/17/2022) [facility]01[facility]-2011 History of Past illness Narrative* Problem Noted Date Resolved Date Leukocytosis 07/12/2010 07/17/2010 Overview: Resolved SUMMARY 07/12/2010 07/17/2010 Overview: 40yo recently diagnosed with nonischemic cardiomyopathy-possible . NYHA-stage B with LBBB. Mother of 5 children. EF-35%. Sp PPM/AICD placed on 06/09/2010; 07/11/10-Left mini postero lateral thoracothomy, 2 LV bipolar leads placed on the lateral wall of LV, leads tunneled and connected to AICD . Kameron drain intact-removed today 07/13-CXR verified by Dr. Arce DVT prophylaxis-encourage ambulation and PAS stockings while in bed Atelectasis/fluid overload 07/12/201007/17 Overview: CXR-atelectasis. On RA. Kameron drain with minimal drng-will remove today. Holding lasix d/t marginal BP's. Encourage ambulation, C&DB, and pep therapy. discharge planning 07/10/2010 07/17/2010 Overview: Pt from [place]. Mother of 5 children ages 6-16yo. Discharge today. No discharge needs. Pre-op testing 07/10/2010 07/17/2010 Overview: Images from the original note were not included. [facility] Surgeon: Sj Hayward M.D. Informed Consent Completed: No STS Score: unsupported CAD: No Is intended procedure a CABG: No - H & P completed: Yes 06/27 PA/LAT: Completed CT: N/A MRI: N/A LE US: N/A Cath: No Echo:Completed EKG: Completed EF %: 55 PI's: N/A Carotid: N/A Mapping: N/A Dental: N/A PFT's: N/A No results found for this basename: WBC,HB,HCT,PLT,INR,CREAT in the last 72 hours UA: pending ABO/ABO Confirmed: Yes Blood ordered: No SA Swab: Yes - results: p Last Dose of Anticoagulation: none Op Note: N/A Pacemaker Check: Yes Consults: EPS DM: No Cardiac Surgical prep: Yes SIGNATURE: Reg Wells Rn CHECKED BY: DATE of SERVICE: 07/10/2010 TIME of SERVICE: 2:55 PM Pain in joint, forearm 04/21/2010 1 documented as of this encounter (statuses as of 04/29/2022) [facility] History of Past illness Narrative* Problem Noted Date Resolved Date Leukocytosis 07/12/2010 07/17/2010 Overview: Resolved SUMMARY 07/12/2010 07/17/2010 Overview: 40yo recently diagnosed with nonischemic cardiomyopathy-possible . NYHA-stage B with LBBB. Mother of 5 children. EF-35%. Sp PPM/AICD placed on 06/09/2010; 07/11/10-Left mini postero lateral thoracothomy, 2 LV bipolar leads placed on the lateral wall of LV, leads tunneled and connected to AICD . Kameron drain intact-removed today 07/13-CXR verified by Dr. Arce DVT prophylaxis-encourage ambulation and PAS stockings while in bed Atelectasis/fluid overload 07/12/201007/17 Overview: CXR-atelectasis. On RA. Kameron drain with minimal drng-will remove today. Holding lasix d/t marginal BP's. Encourage ambulation, C&DB, and pep therapy. discharge planning 07/10/2010 07/17/2010 Overview[place] Mother of 5 children ages 6-16yo. Discharge today. No discharge needs. Pre-op testing 07/10/2010 07/17/2010 Overview: Images from the original note were not included. [facility] Surgeon: Sj Hayward M.D. Informed Consent Completed: No STS Score: unsupported CAD: No Is intended procedure a CABG: No - H & P completed: Yes 06/27 PA/LAT: Completed CT: N/A MRI: N/A LE US: N/A Cath: No Echo:Completed EKG: Completed EF %: 55 PI's: N/A Carotid: N/A Mapping: N/A Dental: N/A PFT's: N/A No results found for this basename: WBC,HB,HCT,PLT,INR,CREAT in the last 72 hours UA: pending ABO/ABO Confirmed: Yes Blood ordered: No SA Swab: Yes - results: p Last Dose of Anticoagulation: none Op Note: N/A Pacemaker Check: Yes Consults: EPS DM: No Cardiac Surgical prep: Yes SIGNATURE: Reg Wells Rn CHECKED BY: DATE of SERVICE: 07/10/2010 TIME of SERVICE: 2:55 PM Pain in joint, forearm 04/21/2010 1 documented as of this encounter (statuses as of 04/29/2022) [facility] History of Past illness Narrative* Problem Noted Date Resolved Date Leukocytosis 07/12/2010 07/17/2010 Overview: Resolved SUMMARY 07/12/2010 07/17/2010 Overview: 40yo recently diagnosed with nonischemic cardiomyopathy-possible . NYHA-stage B with LBBB. Mother of 5 children. EF-35%. Sp PPM/AICD placed on 06/09/2010; 07/11/10-Left mini postero lateral thoracothomy, 2 LV bipolar leads placed on the lateral wall of LV, leads tunneled and connected to AICD . Kameron drain intact-removed today 07/13-CXR verified by Dr. Arce DVT prophylaxis-encourage ambulation and PAS stockings while in bed Atelectasis/fluid overload 07/12/201007/17 Overview: CXR-atelectasis. On RA. Kameron drain with minimal drng-will remove today. Holding lasix d/t marginal BP's. Encourage ambulation, C&DB, and pep therapy. discharge planning 07/10/2010 07/17/2010 Overview: Pt from [place]. Mother of 5 children ages 6-16yo. Discharge today. No discharge needs. Pre-op testing 07/10/2010 07/17/2010 Overview: Images from the original note were not included. [facility] Surgeon: Sj Hayward M.D. Informed Consent Completed: No STS Score: unsupported CAD: No Is intended procedure a CABG: No - H & P completed: Yes 06/27 PA/LAT: Completed CT: N/A MRI: N/A LE US: N/A Cath: No Echo:Completed EKG: Completed EF %: 55 PI's: N/A Carotid: N/A Mapping: N/A Dental: N/A PFT's: N/A No results found for this basename: WBC,HB,HCT,PLT,INR,CREAT in the last 72 hours UA: pending ABO/ABO Confirmed: Yes Blood ordered: No SA Swab: Yes - results: p Last Dose of Anticoagulation: none Op Note: N/A Pacemaker Check: Yes Consults: EPS DM: No Cardiac Surgical prep: Yes SIGNATURE: Reg Wells Rn CHECKED BY: DATE of SERVICE: 07/10/2010 TIME of SERVICE: 2:55 PM Pain in joint, forearm 04/21/2010 1 documented as of this encounter (statuses as of 06/17/2022) [facility] History of Past illness Narrative* Problem Noted Date Resolved Date Leukocytosis 07/12/2010 07/17/2010 Overview: Resolved SUMMARY 07/12/2010 07/17/2010 Overview: 40yo recently diagnosed with nonischemic cardiomyopathy-possible . NYHA-stage B with LBBB. Mother of 5 children. EF-35%. Sp PPM/AICD placed on 06/09/2010; 07/11/10-Left mini postero lateral thoracothomy, 2 LV bipolar leads placed on the lateral wall of LV, leads tunneled and connected to AICD . Kameron drain intact-removed today 07/13-CXR verified by Dr. Arce DVT prophylaxis-encourage ambulation and PAS stockings while in bed Atelectasis/fluid overload 07/12/201007/17 Overview: CXR-atelectasis. On RA. Kameron drain with minimal drng-will remove today. Holding lasix d/t marginal BP's. Encourage ambulation, C&DB, and pep therapy. discharge planning 07/10/2010 07/17/2010 Overview: Pt from [place]. Mother of 5 children ages 6-16yo. Discharge today. No discharge needs. Pre-op testing 07/10/2010 07/17/2010 Overview: Images from the original note were not included. [facility] Surgeon: Sj Hayward M.D. Informed Consent Completed: No STS Score: unsupported CAD: No Is intended procedure a CABG: No - H & P completed: Yes 06/27 PA/LAT: Completed CT: N/A MRI: N/A LE US: N/A Cath: No Echo:Completed EKG: Completed EF %: 55 PI's: N/A Carotid: N/A Mapping: N/A Dental: N/A PFT's: N/A No results found for this basename: WBC,HB,HCT,PLT,INR,CREAT in the last 72 hours UA: pending ABO/ABO Confirmed: Yes Blood ordered: No SA Swab: Yes - results: p Last Dose of Anticoagulation: none Op Note: N/A Pacemaker Check: Yes Consults: EPS DM: No Cardiac Surgical prep: Yes SIGNATURE: Reg Wells Rn CHECKED BY: DATE of SERVICE: 07/10/2010 TIME of SERVICE: 2:55 PM Pain in joint, forearm 04/21/2010 1 documented as of this encounter (statuses as of 07/21/2022) [facility] History of Past illness Narrative* Problem Noted Date Resolved Date Leukocytosis 07/12/2010 07/17/2010 Overview: Resolved SUMMARY 07/12/2010 07/17/2010 Overview: 40yo recently diagnosed with nonischemic cardiomyopathy-possible . NYHA-stage B with LBBB. Mother of 5 children. EF-35%. Sp PPM/AICD placed on 06/09/2010; 07/11/10-Left mini postero lateral thoracothomy, 2 LV bipolar leads placed on the lateral wall of LV, leads tunneled and connected to AICD . Kameron drain intact-removed today 07/13-CXR verified by Dr. Arce DVT prophylaxis-encourage ambulation and PAS stockings while in bed Atelectasis/fluid overload 07/12/201007/17 Overview: CXR-atelectasis. On RA. Kameron drain with minimal drng-will remove today. Holding lasix d/t marginal BP's. Encourage ambulation, C&DB, and pep therapy. discharge planning 07/10/2010 07/17/2010 Overview: Pt [place] Mother of 5 children ages 6-16yo. Discharge today. No discharge needs. Pre-op testing 07/10/2010 07/17/2010 Overview: Images from the original note were not included. [facility] Surgeon: Sj Hayward M.D. Informed Consent Completed: No STS Score: unsupported CAD: No Is intended procedure a CABG: No - H & P completed: Yes 06/27 PA/LAT: Completed CT: N/A MRI: N/A LE US: N/A Cath: No Echo:Completed EKG: Completed EF %: 55 PI's: N/A Carotid: N/A Mapping: N/A Dental: N/A PFT's: N/A No results found for this basename: WBC,HB,HCT,PLT,INR,CREAT in the last 72 hours UA: pending ABO/ABO Confirmed: Yes Blood ordered: No SA Swab: Yes - results: p Last Dose of Anticoagulation: none Op Note: N/A Pacemaker Check: Yes Consults: EPS DM: No Cardiac Surgical prep: Yes SIGNATURE: Reg Wells Rn CHECKED BY: DATE of SERVICE: 07/10/2010 TIME of SERVICE: 2:55 PM Pain in joint, forearm 04/21/2010 1 documented as of this encounter (statuses as of 07/29/2022) [facility]01-29-2011 History of Past illness Narrative* Problem Noted Date Resolved Date Leukocytosis 07/12/2010 07/17/2010 Overview: Resolved SUMMARY 07/12/2010 07/17/2010 Overview: 40yo recently diagnosed with nonischemic cardiomyopathy-possible . NYHA-stage B with LBBB. Mother of 5 children. EF-35%. Sp PPM/AICD placed on 06/09/2010; 07/11/10-Left mini postero lateral thoracothomy, 2 LV bipolar leads placed on the lateral wall of LV, leads tunneled and connected to AICD . Kameron drain intact-removed today 07/13-CXR verified by Dr. Arce DVT prophylaxis-encourage ambulation and PAS stockings while in bed Atelectasis/fluid overload 07/12/201007/17 Overview: CXR-atelectasis. On RA. Kameron drain with minimal drng-will remove today. Holding lasix d/t marginal BP's. Encourage ambulation, C&DB, and pep therapy. discharge planning 07/10/2010 07/17/2010 Overview: Pt from [place], [place]. Mother of 5 children ages 6-16yo. Discharge today. No discharge needs. Pre-op testing 07/10/2010 07/17/2010 Overview: Images from the original note were not included. [facility] Surgeon: jS Hayward M.D. Informed Consent Completed: No STS Score: unsupported CAD: No Is intended procedure a CABG: No - H & P completed: Yes 06/27 PA/LAT: Completed CT: N/A MRI: N/A LE US: N/A Cath: No Echo:Completed EKG: Completed EF %: 55 PI's: N/A Carotid: N/A Mapping: N/A Dental: N/A PFT's: N/A No results found for this basename: WBC,HB,HCT,PLT,INR,CREAT in the last 72 hours UA: pending ABO/ABO Confirmed: Yes Blood ordered: No SA Swab: Yes - results: p Last Dose of Anticoagulation: none Op Note: N/A Pacemaker Check: Yes Consults: EPS DM: No Cardiac Surgical prep: Yes SIGNATURE: Reg Wells Rn CHECKED BY: DATE of SERVICE: 07/10/2010 TIME of SERVICE: 2:55 PM Pain in joint, forearm 04/21/2010 1 documented as of this encounter (statuses as of 09/10/2022) [facility] History of Past illness Narrative* Problem Noted Date Resolved Date Leukocytosis 07/12/2010 07/17/2010 Overview: Resolved SUMMARY 07/12/2010 07/17/2010 Overview: 40yo recently diagnosed with nonischemic cardiomyopathy-possible . NYHA-stage B with LBBB. Mother of 5 children. EF-35%. Sp PPM/AICD placed on 06/09/2010; 07/11/10-Left mini postero lateral thoracothomy, 2 LV bipolar leads placed on the lateral wall of LV, leads tunneled and connected to AICD . Kameron drain intact-removed today 07/13-CXR verified by Dr. Arce DVT prophylaxis-encourage ambulation and PAS stockings while in bed Atelectasis/fluid overload 07/12/201007/17 Overview: CXR-atelectasis. On RA. Kameron drain with minimal drng-will remove today. Holding lasix d/t marginal BP's. Encourage ambulation, C&DB, and pep therapy. discharge planning 07/10/2010 07/17/2010 Overview: Pt from [place]. Mother of 5 children ages 6-16yo. Discharge today. No discharge needs. Pre-op testing 07/10/2010 07/17/2010 Overview: Images from the original note were not included. [facility] Surgeon: Sj Hayward M.D. Informed Consent Completed: No STS Score: unsupported CAD: No Is intended procedure a CABG: No - H & P completed: Yes 06/27 PA/LAT: Completed CT: N/A MRI: N/A LE US: N/A Cath: No Echo:Completed EKG: Completed EF %: 55 PI's: N/A Carotid: N/A Mapping: N/A Dental: N/A PFT's: N/A No results found for this basename: WBC,HB,HCT,PLT,INR,CREAT in the last 72 hours UA: pending ABO/ABO Confirmed: Yes Blood ordered: No SA Swab: Yes - results: p Last Dose of Anticoagulation: none Op Note: N/A Pacemaker Check: Yes Consults: EPS DM: No Cardiac Surgical prep: Yes SIGNATURE: Reg Wells Rn CHECKED BY: DATE of SERVICE: 07/10/2010 TIME of SERVICE: 2:55 PM Pain in joint, forearm 04/21/2010 1 documented as of this encounter (statuses as of 10/02/2022) [facility]01-[facility]-2011 History of Past illness Narrative* Problem Noted Date Diagnosed Date Resolved Date Leukocytosis 07/12/2010 07/17/2010 Overview: Resolved SUMMARY 07/12/2010 07/17/2010 Overview: 40yo recently diagnosed with nonischemic cardiomyopathy-possible . NYHA-stage B with LBBB. Mother of 5 children. EF-35%. Sp PPM/AICD placed on 06/09/2010; 07/11/10-Left mini postero lateral thoracothomy, 2 LV bipolar leads placed on the lateral wall of LV, leads tunneled and connected to AICD . Kameron drain intact-removed today 07/13-CXR verified by Dr. Arce DVT prophylaxis-encourage ambulation and PAS stockings while in bed Atelectasis/fluid overload 07/12/2010 0 07/17/2010 Overview: CXR-atelectasis. On RA. Kameron drain with minimal drng-will remove today. Holding lasix d/t marginal BP's. Encourage ambulation, C&DB, and pep therapy. discharge planning 07/10/2010 1 Overview: Pt from [place]. Mother of 5 children ages 6-16yo. Discharge today. No discharge needs. Pre-op testing 07/10/2010 07/17/2010 Overview: Images from the original note were not included. [facility] Surgeon: Sj Hayward M.D. Informed Consent Completed: No STS Score: unsupported CAD: No Is intended procedure a CABG: No - H & P completed: Yes 06/27 PA/LAT: Completed CT: N/A MRI: N/A LE US: N/A Cath: No Echo:Completed EKG: Completed EF %: 55 PI's: N/A Carotid: N/A Mapping: N/A Dental: N/A PFT's: N/A No results found for this basename: WBC,HB,HCT,PLT,INR,CREAT in the last 72 hours UA: pending ABO/ABO Confirmed: Yes Blood ordered: No SA Swab: Yes - results: p Last Dose of Anticoagulation: none Op Note: N/A Pacemaker Check: Yes Consults: EPS DM: No Cardiac Surgical prep: Yes SIGNATURE: Reg Wells Rn CHECKED BY: DATE of SERVICE: 07/10/2010 TIME of SERVICE: 2:55 PM Pain in joint, forearm 04/21/201007/17 documented as of this encounter (statuses as of 12/31/2022) [facility]01-[facility]-2011 History of Past illness Narrative* Problem Noted Date Diagnosed Date Resolved Date Leukocytosis 07/12/2010 07/17/2010 Overview: Resolved SUMMARY 07/12/2010 07/17/2010 Overview: 40yo recently diagnosed with nonischemic cardiomyopathy-possible . NYHA-stage B with LBBB. Mother of 5 children. EF-35%. Sp PPM/AICD placed on 06/09/2010; 07/11/10-Left mini postero lateral thoracothomy, 2 LV bipolar leads placed on the lateral wall of LV, leads tunneled and connected to AICD . Kameron drain intact-removed today 07/13-CXR verified by Dr. Arce DVT prophylaxis-encourage ambulation and PAS stockings while in bed Atelectasis/fluid overload 07/12/2010 0 07/17/2010 Overview: CXR-atelectasis. On RA. Kameron drain with minimal drng-will remove today. Holding lasix d/t marginal BP's. Encourage ambulation, C&DB, and pep therapy. discharge planning 07/10/2010 1 Overview: Pt from [place]. Mother of 5 children ages 6-16yo. Discharge today. No discharge needs. Pre-op testing 07/10/2010 07/17/2010 Overview: Images from the original note were not included. [facility] Surgeon: Sj Hayward M.D. Informed Consent Completed: No STS Score: unsupported CAD: No Is intended procedure a CABG: No - H & P completed: Yes 06/27 PA/LAT: Completed CT: N/A MRI: N/A LE US: N/A Cath: No Echo:Completed EKG: Completed EF %: 55 PI's: N/A Carotid: N/A Mapping: N/A Dental: N/A PFT's: N/A No results found for this basename: WBC,HB,HCT,PLT,INR,CREAT in the last 72 hours UA: pending ABO/ABO Confirmed: Yes Blood ordered: No SA Swab: Yes - results: p Last Dose of Anticoagulation: none Op Note: N/A Pacemaker Check: Yes Consults: EPS DM: No Cardiac Surgical prep: Yes SIGNATURE: Reg Wells Rn CHECKED BY: DATE of SERVICE: 07/10/2010 TIME of SERVICE: 2:55 PM Pain in joint, forearm 04/21/201007/17 documented as of this encounter (statuses as of 04/09/2023) [facility] No data available for this section [facility] Evaluation note* Diagnosis Panic attack Panic disorder without agoraphobia Panic attack as reaction to stress Predominant disturbance of emotions [facility] Diagnosis Cough variant asthma- Primary COVID-19 long hauler Gastroesophageal reflux disease, unspecified whether esophagitis present [facility] Diagnosis Neuropathy Mononeuritis of unspecified site [facility] Diagnosis Cervicalgia documented in [facility] Diagnosis Moderate persistent asthma with acute exacerbation- Primary documented in this [facility]* Diagnosis SOB (shortness of breath)- Primary Shortness of breath documented [facility] this [facility]* Diagnosis Pleurodynia- Primary Painful respiration [facility] No data available for this section [facility] Reason for referral (narrative)* Outpatient Procedure (Routine) - Pending Review Specialty Diagnoses / Procedures Referred By Ramona t Referred To Contact [facility] Diagnoses Cough variant asthma Procedures NITRIC OXIDE, EXHALED NITRIC OXIDE GAS DETERMINATION Mckenna Baeza MD [address] [place] [address] Respiratory [place] [address] [place] [address] Referral ID Status Reason Start Date Expiration Date Visits Requested Visits Authorized [id number] Pending Review Auto-Generat ed Referral 10/02/2021 11/01/2022 1 1 [facility] Summary Purpose Family History No Family History Records FoundNo Family History Records FoundNo Family History Records FoundNo Family History Records FoundNo Family History Records FoundNo Family History Records FoundNo Family History Records Found Advance Directives Documents on File Type Date Recorded Patient Director Speech Language Expl anation Advance Directive(s) 08/28/2020 2:48 PM Advance Directive(s) 03/11/2020 8:15 AM Advance Directive(s) 03/09/2020 3:38 PM Documents on File Type Date Recorded Patient Director Speech Language Expl anation Advance Directive(s) 08/28/2020 2:48 PM Advance Directive(s) 03/11/2020 8:15 AM Advance Directive(s) 03/09/2020 3:38 PM Health Concerns Infection Onset Date Last Indicated Resolved Time COVID-19 Rule-Out 04/16/2022 04/16/2022 04/17/2022 4:10 AM EDT Reason for Referral * Right Hip Contusion Additional Source Comments INFORMATION SOURCE (unrecogn ized section and content) DATE CREATED AUTHOR AUTHOR'S ORGANIZ ATION 03/12/2020 [facility] DATE CREATED AUTHOR AUTHOR'S ORGANIZ ATION 05/13/2021 [facility] DATE CREATED AUTHOR AUTHOR'S ORGANIZ ATION 02/04/2022 [facility] DATE CREATED AUTHOR AUTHOR'S ORGANIZ ATION 05/06/2022 [facility] ([place]) DATE CREATED AUTHOR AUTHOR'S ORGANIZ ATION 10/02/2022 [facility] DATE CREATED AUTHOR AUTHOR'S ORGANIZ ATION 02/06/2023 [facility] Source Comments (unrecognize d section and content) In the event this informatio n is protected by the Federal Confidentiality of Alcohol and Drug Abuse Patient Records regulations: The Federal rules restrict any use of the information to criminally investigate or prosecute any alcohol or drug abuse patient.[facility] the event this information is protected by the Federal Confidentiality of Alcohol and Drug Abuse Patient Records regulations: The Federal rules restrict any use of the information to criminally investigate or prosecute any alcohol or drug abuse patient.[facility] Center[facility] the event this information is protected by the Federal Confidentiality of Alcohol and Drug Abuse Patient Records regulations: The Federal rules restrict any use of the information to criminally investigate or prosecute any alcohol or drug abuse patient.[facility] Center[facility] the event this information is protected by the Federal Confidentiality of Alcohol and Drug Abuse Patient Records regulations: The Federal rules restrict any use of the information to criminally investigate or prosecute any alcohol or drug abuse patient.[facility] Center[facility] the event this information is protected by the Federal Confidentiality of Alcohol and Drug Abuse Patient Records regulations: The Federal rules restrict any use of the information to criminally investigate or prosecute any alcohol or drug abuse patient.[facility] Center[facility] the event this information is protected by the Federal Confidentiality of Alcohol and Drug Abuse Patient Records regulations: The Federal rules restrict any use of the information to criminally investigate or prosecute any alcohol or drug abuse patient.[facility] Center[facility] the event this information is protected by the Federal Confidentiality of Alcohol and Drug Abuse Patient Records regulations: The Federal rules restrict any use of the information to criminally investigate or prosecute any alcohol or drug abuse patient.[facility] CenterIn the event this information is protected by the Federal Confidentiality of Alcohol and Drug Abuse Patient Records regulations: The Federal rules restrict any use of the information to criminally investigate or prosecute any alcohol or drug abuse patient.[facility] CenterIn the event this information is protected by the Federal Confidentiality of Alcohol and Drug Abuse Patient Records regulations: The Federal rules restrict any use of the information to criminally investigate or prosecute any alcohol or drug abuse patient.[facility] CenterIn the event this information is protected by the Federal Confidentiality of Alcohol and Drug Abuse Patient Records regulations: The Federal rules restrict any use of the information to criminally investigate or prosecute any alcohol or drug abuse patient.[facility] CenterIn the event this information is protected by the Federal Confidentiality of Alcohol and Drug Abuse Patient Records regulations: The Federal rules restrict any use of the information to criminally investigate or prosecute any alcohol or drug abuse patient.[facility] CenterIn the event this information is protected by the Federal Confidentiality of Alcohol and Drug Abuse Patient Records regulations: The Federal rules restrict any use of the information to criminally investigate or prosecute any alcohol or drug abuse patient.[facility]In the event this information is protected by the Federal Confidentiality of Alcohol and Drug Abuse Patient Records regulations: The Federal rules restrict any use of the information to criminally investigate or prosecute any alcohol or drug abuse patient.[facility] CenterIn the event this information is protected by the Federal Confidentiality of Alcohol and Drug Abuse Patient Records regulations: The Federal rules restrict any use of the information to criminally investigate or prosecute any alcohol or drug abuse patient.[facility] CenterIn the event this information is protected by the Federal Confidentiality of Alcohol and Drug Abuse Patient Records regulations: The Federal rules restrict any use of the information to criminally investigate or prosecute any alcohol or drug abuse patient.[facility] CenterIn the event this information is protected by the Federal Confidentiality of Alcohol and Drug Abuse Patient Records regulations: The Federal rules restrict any use of the information to criminally investigate or prosecute any alcohol or drug abuse patient.[facility] CenterIn the event this information is protected by the Federal Confidentiality of Alcohol and Drug Abuse Patient Records regulations: The Federal rules restrict any use of the information to criminally investigate or prosecute any alcohol or drug abuse patient.[facility] CenterIn the event this information is protected by the Federal Confidentiality of Alcohol and Drug Abuse Patient Records regulations: The Federal rules restrict any use of the information to criminally investigate or prosecute any alcohol or drug abuse patient.[facility] CenterIn the event this information is protected by the Federal Confidentiality of Alcohol and Drug Abuse Patient Records regulations: The Federal rules restrict any use of the information to criminally investigate or prosecute any alcohol or drug abuse patient.[facility] CenterIn the event this information is protected by the Federal Confidentiality of Alcohol and Drug Abuse Patient Records regulations: The Federal rules restrict any use of the information to criminally investigate or prosecute any alcohol or drug abuse patient.[facility] CenterIn the event this information is protected by the Federal Confidentiality of Alcohol and Drug Abuse Patient Records regulations: The Federal rules restrict any use of the information to criminally investigate or prosecute any alcohol or drug abuse patient.[facility] CenterIn the event this information is protected by the Federal Confidentiality of Alcohol and Drug Abuse Patient Records regulations: The Federal rules restrict any use of the information to criminally investigate or prosecute any alcohol or drug abuse patient.[facility] CenterIn the event this information is protected by the Federal Confidentiality of Alcohol and Drug Abuse Patient Records regulations: The Federal rules restrict any use of the information to criminally investigate or prosecute any alcohol or drug abuse patient.[facility] Reason for Visit (unrecogniz ed section and content) Reason Onset Date Comments Refill Request 09/09/2021 Reason Comments Established Patient Cough asthma Reason Onset Date Comments Refill Request 10/04/2021 Reason Onset Date Comments Refill Request 11/17/2021 Reason Comments external documents [facility] Reason Onset Date Comments Refill Request 03/19/2022 Reason Onset Date Comments Refill Request 04/16/2022 Reason Comments Follow Up ER follow up for Bro nchitis Reason Onset Date Comments Refill Request 07/17/2022 Reason Comments Patient Question Patient wants to kno w, if her device is MRI compatible. Please call patient at [phone] Care Teams (unrecognized sec tion and content) [employer] Relationship Specialty Start Date End Date Yanira Patel MD [address] [place] [address] PCP - General Cardiology 12/25/08 Dagoberto Hills MD [address] [place] [address] Primary Staff Physician Cardiology 08/30/18 [employer] Relationship Specialty Start Date End Date Yanira Patel MD [address] [place] [address] PCP - General Cardiology 12/25/08 Dagoberto Hills MD [address] [place] [address] Primary Staff Physician Cardiology 08/30/18 [employer] Relationship Specialty Start Date End Date Yanira Patel MD [address] [place] [address] PCP - General Cardiology 12/25/08 Dagoberto Hills MD [address] [place] [address] Primary Staff Physician Cardiology 08/30/18 [employer] Relationship Specialty Start Date End Date Yanira Patel MD [address] [place] [address] PCP - General Cardiology 12/25/08 Dagoberto Hills MD [address] [place] [address] Primary Staff Physician Cardiology 08/30/18 [employer] Relationship Specialty Start Date End Date Yanira Patel MD [address] [place] [address] PCP - General Cardiology 12/25/08 Dagoberto Hills MD [address] [place] [address] Primary Staff Physician Cardiology 08/30/18 [employer] Operator Relationship Specialty Start Date End Date Yanira Patel MD [address] [place] [address] PCP - General Cardiology 12/25/08 Dagoberto Hills MD [address] [place] [address] Primary Staff Physician Cardiology 08/30/18 [employer] Operator Relationship Specialty Start Date End Date Yanira Patel MD [address] [place] [address] PCP - General Cardiology 12/25/08 Dagoberto Hills MD [address] [place] [address] Primary Staff Physician Cardiology 08/30/18 [employer] Relationship Specialty Start Date End Date Yanira Patel MD [address] [place] [address] PCP - General Cardiology 12/25/08 Dagoberto Hills MD [address] [place] [address] Primary Staff Physician Cardiology 08/30/18 [employer] Relationship Specialty Start Date End Date Yanira Patel MD [address] [place] [address] PCP - General Cardiology 12/25/08 Dagoberto Hills MD [address] [place], [place] [id number] Primary Staff Physician Cardiology 08/30/18 [employer] Operator Relationship Specialty Start Date End Date Yanira Patel MD [address] [place] [address] PCP - General Cardiology 12/25/08 Dagoberto Hills MD [address] [place] [address] Primary Staff Physician Cardiology 08/30/18 [employer] Operator Relationship Specialty Start Date End Date Yanira Patel MD [address] [place] [address] PCP - General Cardiology 12/25/08 Dagoberto Hills MD [address] [place] [address] Primary Staff Physician Cardiology 08/30/18 [employer] Relationship Specialty Start Date End Date Yanira Patel MD [address] [place] [address] PCP - General Cardiology 12/25/08 Dagoberto Hills MD [address] [place] [address] Primary Staff Physician Cardiology 08/30/18 [employer] Relationship Specialty Start Date End Date Yanira Patel MD [address] [place] [address] PCP - General Cardiology 12/25/08 Dagoberto Hills MD [address] [place] [address] Primary Staff Physician Cardiology 08/30/18 Care Team (unrecognized sect ion and content) Care Team Personnel Name: YANIRA PATEL MD Member Role: Primary Care Physician Address: Address: [address] [place], [place] [address] Name: MARIA EUGENIA Fournier Position: AO RN Member Role: ED RN Name: MARY ALICE CHAVIRA MD Position: AH Resident Member Role: Resident Address: Address: [address] [place] [address]- Care Team Related Persons Name: DMITRY MANCUSO Address: Home [address] [place] [address] Name: DOMINGA MANCUSO Address: Home [address] [place] [address] Name: YANIRA MANCUSO <item> Privacy Markings (unrecogniz ed section and content) Section Author: Joelle Solares PROHIBITION ON REDISCLOSURE OF CONFIDENTIAL INFORMATION This notice accompanies a disclosure of information concerning a client made to you with the consent of such client. FOR RECORDS PERTAINING TO PATIENTS WHO ARE OR HAVE BEEN ENROLLED IN A CHEMICAL DEPENDENCY/SUBSTANCEABUSE PROGRAM, SOME INFORMATION MAY BE OMITTED. This clinical summary was aggregated from multiple sources. Caution should be exercised in using it in the provision of clinical care. This summary normalizes information from multiple sources, and as a consequence, information in this document may materially change the coding, format and clinical context of patient data. In addition, data may be omitted in some cases. CLINICAL DECISIONS SHOULD BE BASED ON THE PRIMARY CLINICAL RECORDS. [employer] provides no warranty or guarantee of the accuracy or completeness of information in this document.
[2023-07-14 07:38] LABS: Cholesterol 154 mg/dL (200); High Density Lipoprotein 52 mg/dL; Triglycerides 109 mg/dL; Very Low Density Lipoprotein 22 mg/dL (5-40)
== END | disposition home or self-care (01) ==
PROVIDERS: PCP Internal Medicine; Referring Provider Nurse Practitioner Family; Visit Provider Nurse Practitioner Family
DX: E78.5 Hyperlipidemia, unspecified (principal)
CPT/HCPCS: 36415; 80061

== ENCOUNTER → 2023-10-20 | Outpatient (CLI) | payer BC, SELFPAY ==
[2023-10-20 07:22] LABS: Absolute Lymphocyte Count 1.68 X10^3/uL (0.83-4.51); Absolute Neutrophil Count 4.5 X10^3/uL (2.0-7.7); Basophil# 0.07 X10^3/uL; Eosinophil# 0.24 X10^3/uL; Eosinophils% 3.4 % (0-5); Hematocrit 41.7 % (37-47); Hemoglobin 12.9 g/dL (12.0-15.0); Lymphocyte # 1.68 X10^3/ul (0.83-4.51); Lymphocyte % 23.9 % (19-41); Mean Corp Hgb Conc 30.9 g/dL (32-36); Mean Corpuscular Hgb 26.4 pg (27.0-32.0); Mean Corpuscular Volume 85.5 fL (81-99); Mean Platelet Vol. 10.9 fl (6.2-12.0); Monocyte# 0.49 X10^3/uL; NRBC Flagged by Analyzer 0 % (0-5); Neutrophil # 4.53 X10^3/uL (2.7-7.7); Neutrophil % 64.6 % (47-70); Platelet Count 278 K/mm3 (150-450); RBC Distribution Width CV 14.2 % (11.6-14.6); RBC Distribution Width SD 43.9 fl (35.1-43.9); Red Blood Count 4.88 M/mm3 (4.2-5.4)
[2023-10-20 08:05] LABS: Vitamin D,25 Hydroxy 35.4 ng/mL
[2023-10-20 08:07] LABS: ALB/GLOB Ratio 1.1 RATIO (0.9-2.4); AST(SGOT) 20 U/L (15-37); Alanine Aminotransfer ALT/SGPT 23 U/L (13-56); Albumin, Serum 3.9 g/dL (3.2-5.0); Alkaline Phosphatase 121 U/L (45-117); Anion Gap 4 (5-15); BUN 11 mg/dL (7-18); BUN/Creat Ratio 11.7 RATIO (10-20); Calcium,Total 9.2 mg/dL (8.5-10.1); Chloride 107 mmol/L (98-107); Cholesterol 157 mg/dL (200); Creatinine, Serum 0.94 mg/dL (0.55-1.02); EST Glomerular Filtration Rate 66 mL/min (>60); Est Glom Filt Rate - Afr Amer 80 mL/min (>60); Globulin 3.5 g/dL (2.2-4.2); Glucose 113 mg/dL (74-106); High Density Lipoprotein 49 mg/dL; Magnesium 2.3 mg/dL (1.6-2.6); Potassium 3.7 mmol/L (3.5-5.1); Protein, Total 7.4 g/dL (6.4-8.2); Sodium Level 141 mmol/L (136-145); Thyroid Stim Hormone (TSH) 1.77 uIU/mL (0.358-3.74); Triglycerides 109 mg/dL; Very Low Density Lipoprotein 22 mg/dL (5-40)
[2023-10-20 08:40] LABS: Hemoglobin A1c 5.6 % (3.8-5.6)
== END | disposition home or self-care (01) ==
LOC: LAB 06:27
PROVIDERS: PCP Internal Medicine; Referring Provider Internal Medicine; Visit Provider Internal Medicine
DX: Z13.220 Encounter for screening for lipoid disorders (principal); I50.32 Chronic diastolic (congestive) heart failure; E11.9 Type 2 diabetes mellitus without complications; E78.5 Hyperlipidemia, unspecified; R79.89 Other specified abnormal findings of blood chemistry; I51.89 Other ill-defined heart diseases; Z95.810 Presence of automatic (implantable) cardiac defibrillator; E55.9 Vitamin D deficiency, unspecified
CPT/HCPCS: 36415; 80053; 80061; 82306; 83036; 83735; 84443; 85025

== ENCOUNTER → 2024-01-27 | Outpatient (CLI) | payer BC, SELFPAY ==
[2024-01-27 07:42] LABS: AST(SGOT) 20 U/L (15-37); Alanine Aminotransfer ALT/SGPT 24 U/L (13-56); Albumin, Serum 3.7 g/dL (3.2-5.0); Alkaline Phosphatase 129 U/L (45-117); Bilirubin, Direct 0.16 mg/dL (0.00-0.30); Cholesterol 130 mg/dL (200); Globulin 3.3 g/dL (2.2-4.2); High Density Lipoprotein 46 mg/dL; Triglycerides 168 mg/dL; Very Low Density Lipoprotein 34 mg/dL (5-40)
[2024-01-27 08:16] LABS: Hemoglobin A1c 5.5 % (3.8-5.6)
== END | disposition home or self-care (01) ==
LOC: LAB 06:20
PROVIDERS: PCP Internal Medicine; Referring Provider Nurse Practitioner Family; Visit Provider Nurse Practitioner Family
DX: R73.9 Hyperglycemia, unspecified (principal); E78.00 Pure hypercholesterolemia, unspecified
CPT/HCPCS: 36415; 80061; 80076; 83036

== ENCOUNTER 2024-03-18 15:23 | Emergency (ER) | payer BC, SELFPAY ==
[2024-03-18 15:24] VITALS: BP 104/57; PULSE 83; RESP 16; TEMP 35.5; O2SAT 100; BMI 27.2
[2024-03-18 15:27] VITALS: BP 104/57; PULSE 83; RESP 16; TEMP 35.5; O2SAT 100
--- NOTE | 2024-03-18 15:28 | ED.VIS.FEGU ---
HPI HPI - Female History of Present Illness Chief Complaint: Complaint [facility] Medical History (Updated 03/18/24 @ 18:[address] Tr Quintanilla, DO) Chest pain Diabetes Flank pain Hematuria Abnormal stress test Hyperlipidemia Elevated TSH Type 2 diabetes mellitus Diastolic dysfunction Dyspnea on exertion SOB (shortness of breath) Left bundle branch block Biventricular ICD (implantable cardioverter-defibrillator) in place (09/10/20) Abnormal PFTs Asthma with acute exacerbation Allergic rhinitis due to allergen Excessive daytime sleepiness Encounter for wellness examination in adult Encounter to establish care History of cardiomyopathy Heart disease A-fib Arthritis Asthma Back injury Lumbosacral radiculopathy at S1 DDD (degenerative disc disease), lumbar Bronchitis Contusion of lower back Contusion, hip COVID-19 Congestive heart failure (CHF) ICD (implantable cardioverter-defibrillator) in place Atypical chest pain Congestive heart failure (CHF) Nonischemic cardiomyopathy Home Medications ?Medication ?Instructions ?Recorded ?Last Taken ?Type atenolol 25 mg tablet (Tenormin) 25 mg PO QHS heart 04/26/18 08/17/22 History hydroxyzine HCl 25 mg tablet 25 mg PO Q6H PRN PRN Anxiety 05/02/19 Unknown History albuterol sulfate 1.25 mg/3 mL 2.5 mg (6 mL) inhalation TID-QID 07/28/22 08/18/22 Rx solution for nebulization PRN shortness of breath or wheezing 30 days #90 mL albuterol sulfate 90 mcg/actuation 1 - 2 puff inhalation Q4H PRN PRN 07/28/22 08/17/22 Rx aerosol inhaler Wheezing ##1 ipratropium bromide 21 mcg (0.03 2 spray intranasal BID-TID PRN 07/28/22 08/18/22 Rx %) nasal spray allergy symptoms #30 mL omeprazole 40 mg capsule,delayed 40 mg PO BID Gerd #180 caps 01/20/23 Unknown Rx release Reli On Seneca glucometer 02/25/23 Unknown History aspirin 81 mg tablet,delayed 81 mg PO DAILY 05/13/23 Unknown History release (Adult Low Dose Aspirin) budesonide-formoterol HFA 160 2 puff inhalation BID #1 ea 08/04/23 Unknown Rx mcg-4.5 mcg/actuation aerosol inhaler (Symbicort) semaglutide 0.25 mg or 0.5 mg (2 0.25 mg (0.368 mL) subcut QWEEK #3 08/23/23 Unknown Rx mg/3 mL) subcutaneous pen injector mL (Ozempic) venlafaxine 150 mg 150 mg PO DAILY #90 caps 09/29/23 Unknown Rx capsule,extended release 24 hr furosemide 20 mg tablet 20 mg PO DAILY #90 tabs 11/09/23 Unknown Rx lisinopril 2.5 mg tablet 2.5 mg PO QHS BP #90 tabs 11/09/23 Unknown Rx potassium chloride 10 mEq 10 meq PO DAILY #90 tabs 11/09/23 Unknown Rx tablet,extended release flash glucose sensor (FreeStyle #1 ea 11/29/23 Unknown Rx Georgiana 14 Day Sensor kit) atorvastatin 20 mg tablet 20 mg PO DAILY #30 tabs 02/29/24 Unknown Rx sulfamethoxazole 800 1 tab PO BID 7 days #14 tabs 03/18/24 Unknown Rx mg-trimethoprim 160 mg tablet (Bactrim DS) Allergy/AdvReac Type Severity Reaction Status Date / Time naproxen Allergy Hives Verified 03/18/24 15:24 vancomycin Allergy Rash Verified 03/18/24 15:24 carvedilol AdvReac Upset Verified 03/18/24 15:24 Stomach Family History Grandmother CVA (cerebral vascular accident) Mother Colon cancer High cholesterol Other Bladder cancer Cancer Diabetes Hypertension Surgical History History of neck surgery History of ankle surgery History of cholecystectomy History of appendectomy Status post biventricular pacemaker Social History Smoking Status: Never smoker alcohol intake: never substance use type: does not use caffeine: Yes (sometimes) Type: carbonated beverages, coffee and tea EXAM Physical Exam Const Vital Signs: 03/18/24 15:24 03/18/24 15:27 03/18/24 16:27 Temperature 96 F L 96 F L 97.9 F Temperature Source Temporal Oral Oral Pulse Rate 83 83 74 Respiratory Rate 16 16 18 Blood Pressure 104/57 L 104/57 L 102/57 L Blood Pressure Mean 72 72 72 Pulse Ox 100 100 97 Oxygen Delivery Method Room Air Room Air Room Air 03/18/24 16:56 03/18/24 17:00 03/18/24 18:00 Temperature 97.9 F 98 F Temperature Source Oral Pulse Rate 71 68 66 Respiratory Rate 16 18 18 Blood Pressure 105/62 106/58 L 112/72 Blood Pressure Mean 76 74 85 Pulse Ox 99 98 99 Oxygen Delivery Method Room Air Room Air [facility] [place] Medical decision making narrative: HISTORY OF PRESENT ILLNESS: 54-year-old female presents with pain with urination. Concern for UTI. Patient also endorses bilateral flank pain. No history of kidney stones. No she was seen by urgent care prior to arrival. She noted her urinalysis there showed evidence of a urine infection. Given her flank pain the urgent care suggested she be evaluated further by the emergency department. REVIEW OF SYSTEMS: Pertinent positives: Dysuria, flank pain Pertinent negatives: Chest pain, fever, vomiting, focal weakness PHYSICAL EXAM: Nursing triage notes reviewed, Vital signs reviewed Constitutional: please see mdm HENT: MMM Eyes: Pupils equal round and reactive to light, Extraocular muscles intact Neck: No stridor, no JVD, full neck ROM Lungs: Clear to auscultation, No wheezing or rales. No increased work of breathing, no conversational dyspnea, no accessory muscle use, no nasal flaring. No respiratory distress noted Heart: Regular rate and rhythm, No murmurs, No rubs and No gallops, 2+ distal pulses (radial, femoral, posterior tibial) in all extremities Abdomen: Soft, there is no tenderness, rigidity, rebound or guarding, no obvious peritoneal signs, no palpable pulsatile abdominal masses, no auscultated abdominal bruit : No CVAT Extremities: No edema Neuro: No focal neurological deficits, cranial nerves II through XII intact, 5/5 strength in all extremities. Intact sensation to light touch in all extremities, 2+ reflexes bilateral patella tendons. Normal gait. No ataxia. Skin: No rash or lesions noted MEDICAL DECISION MAKING: Chief Complaint: Dysuria, flank pain External records reviewed: Reviewed prior urine culture noted urine culture from 2022 was negative Factors affecting care: Type 2 diabetes, hyperlipidemia, status post ICD, A-fib, nonischemic cardiomyopathy, Social determinants of health: none History obtained from others: none Consults: none [facility] Narrative: Patient was initially hemodynamically stable, afebrile and [id number]. Exam with bilateral CVA tenderness. Abdomen soft nontender no peritoneal signs. No pulse abdominal masses auscultated bruits. I considered the following differential diagnosis: UTI, pyelonephritis, nephrolithiasis, AAA I obtained a broad lab and imaging workup to further elucidate etiology the patient complaint. I initially treated the patient with 500 cc IV fluid bolus, 15 mg IV Toradol. ALL IMAGES (IF OBTAINED) HAVE BEEN PERSONALLY REVIEWED AND INTERPRETED BY MYSELF. CT scan on pelvis showed no evidence of kidney stones, AAA or signs of pyelonephritis CBC without leukocytosis, severe anemia, no thrombocytopenia. BMP without evidence of significant electrolyte abnormalities, no anion gap, no acute kidney injury. The synthesis of the patient history, physical exam, and images suggest UTI. With flank pain with concern for pyelonephritis. Will treat with Bactrim. Patient's urinalysis and urine culture will be handled by urgent care as he is already obtained. Gave strict return precautions and follow-up instructions. The patient and/or family, caregivers express understanding. The patient and/or family, caregivers agrees with the plan. Shared decision making: I will have a discussion with the patient and or visitors regarding risk/benefits of further testing or admission. They will be made aware of of the risk/benefits inherent in this decision they will be given the opportunity to voice understanding. Total critical care time today provided was at least 0 minutes. This excludes separately billable procedures. Critical care time (if documented) is secondary to the patient having high probability of clinically significant/life threatening deterioration in the patient's condition which required my urgent intervention. Impression: 1. Dysuria 2. Pyelonephritis 3. Hyponatremia Dispo: Discharge home This note was generated with [employer] dictation software. It may contain incorrect words, spelling, and punctuation that were not noted in review of the chart prior to signing. Lab Data Labs: Laboratory Results - last 24 hr 03/18/24 15:50 WBC 10.6 RBC 4.68 Hgb 12.8 Hct 40.2 MCV 85.9 MCH 27.4 MCHC 31.8 L RDW Std Deviation 41.6 RDW Coeff of Irma 13.4 Plt Count 225 MPV 10.2 Immature Gran % (Auto) 0.400 Neut % (Auto) 65.8 Lymph % (Auto) 25.6 [place] % (Auto) 6.1 Eos % (Auto) 1.6 Baso % (Auto) 0.5 Absolute Neuts (auto) 7.0 Absolute Lymphs (auto) 2.72 Nucleated RBC % 0 Sodium 134 L Potassium 4.4 Chloride 107 Carbon Dioxide 21.0 Anion Gap 6 BUN 15 Creatinine 0.76 Estim Creat Clear Calc 86.36 Est GFR (MDRD) Af Amer 103 Est GFR (MDRD) Non-Af 85 BUN/Creatinine Ratio 19.8 Glucose 97 Calcium 9.0 Radiography Diagnostic Testing: Clinical Impression(s) from Imaging Studies Abdomen/Pelvis CT 03/18/24 15:46 IMPRESSION: No acute findings in the abdomen or pelvis. Colonic fecal burden consistent with clinical constipation. Electronically Signed: Mandeep Vazquez MD at 16:58 EDT , Discharge Plan Triage Chief Complaint: Complaint ED Provider: Tr Quintanilla Dx/Rx/DC Orders Clinical Impression: Pyelonephritis Instructions: Kidney Infec Dc Prescriptions: New sulfamethoxazole-trimethoprim [Bactrim DS] 800-160 mg tablet 1 tab PO BID 7 Days Qty: 14 0RF No Action albuterol sulfate 90 mcg/actuation HFA aerosol inhaler 1 - 2 puff inhalation Q4H PRN PRN (Reason: Wheezing) Qty: 1 0RF albuterol sulfate 1.25 mg/3 mL solution for nebulization 2.5 mg inhalation TID-QID PRN (Reason: shortness of breath or wheezing) 30 Days Qty: 90 6RF ipratropium bromide 21 mcg (0.03 %) spray,non-aerosol 2 spray intranasal BID-TID PRN (Reason: allergy symptoms) Qty: 30 3RF Rx Instructions: administer into each nostril before bed, and in AM for nasal congestions and drip symptoms. aspirin [Adult Low Dose Aspirin] 81 mg tablet,delayed release (DR/EC) 81 mg PO DAILY (DME) Reli On Seneca glucometer 0 .Route .MEDSUPPLY atenolol [Tenormin] 25 MG tablet 25 mg PO QHS hydroxyzine HCl 25 MG tablet 25 mg PO Q6H PRN PRN (Reason: Anxiety) Patient Comments: TAKE 1 TABLET BY MOUTH EVERY 6 HOURS NEEDED FOR ANXIETY omeprazole 40 mg capsule,delayed release(DR/EC) 40 mg PO BID Qty: 180 3RF budesonide-formoterol [Symbicort] 160-4.5 mcg/actuation HFA aerosol inhaler 2 puff inhalation BID Qty: 1 11RF Rx Instructions: administer with spacer, rinse mouth after each use Ozempic 0.25 mg or 0.5 mg (2 mg/3 mL) pen injector 0.25 mg subcut QWEEK Qty: 3 5RF Rx Instructions: Once weekly for 4 weeks. venlafaxine 150 mg capsule,extended release 24hr 150 mg PO DAILY Qty: 90 3RF furosemide 20 mg tablet 20 mg PO DAILY Qty: 90 3RF lisinopril 2.5 mg tablet 2.5 mg PO QHS Qty: 90 3RF potassium chloride 10 mEq tablet extended release 10 meq PO DAILY Qty: 90 3RF (DME) FreeStyle [place] 14 Day Sensor Kit See Rx Instructions .Route Qty: 1 5RF Rx Instructions: As directed atorvastatin 20 mg tablet 20 mg PO DAILY Qty: 30 11RF Primary Care Provider: Emani Rodríguez Referrals: Emani Rodríguez MD [Primary Care Provider] - Print Language: Icelandic
--- NOTE | 2024-03-18 15:46 | CT_ITS ---
INDICATION: Bilateral flank pain, history of cholecystectomy and appendectomy EXAMINATION: CT ABDOMEN AND PELVIS WITHOUT CONTRAST - CT Abdomen And Pelvis W/O Contrast Injection TECHNIQUE: Helically acquired images were obtained of the abdomen and pelvis without oral or IV contrast. A radiation dose optimization technique was used for this scan. IV Contrast dosage and agent: None. Oral contrast: None. COMPARISON: 04/12/2023 FINDINGS: LOWER CHEST: Lung bases are clear. Stable left-sided AICD lead along the periphery of the left chest. LIVER: Homogeneous. No focal mass. GALLBLADDER AND BILIARY TREE: Cholecystectomy. No intra- or extrahepatic biliary ductal dilation. PANCREAS: No focal cystic or solid mass. SPLEEN: Normal size without focal cystic or solid mass. ADRENAL GLANDS: No nodules. KIDNEYS AND URETERS: No nephrolithiasis or hydronephrosis. PERITONEUM: No ascites or free air. BOWEL: Prior appendectomy changes. No stomach or bowel distension. Diffusely increased colonic fecal burden. No focal inflammatory bowel wall changes. LYMPH NODES: No enlarged mesenteric or retroperitoneal lymph nodes. VESSELS: Aorta is non-dilated. URINARY BLADDER: Unremarkable. REPRODUCTIVE ORGANS: No pelvic masses. BONES: No acute or aggressive abnormality. CT/Abdomen/Pelvis without Cont IMPRESSION: No acute findings in the abdomen or pelvis. Colonic fecal burden consistent with clinical constipation. Electronically Signed: Mandeep Vazquez MD at 16:58 EDT ,
[2024-03-18] MEDS: 0.9% Normal Saline (500mL Bag) 500 ML 999 ML IV (15:55)
[2024-03-18] MEDS: Ketorolac 15 MG/ML Vial IV (15:55)
[2024-03-18 16:27] VITALS: BP 102/57; PULSE 74; RESP 18; TEMP 36.6; O2SAT 97
[2024-03-18 16:42] LABS: Anion Gap 6 (5-15); BUN 15 mg/dL (7-18); BUN/Creat Ratio 19.8 RATIO (10-20); Chloride 107 mmol/L (98-107); Creatinine, Serum 0.76 mg/dL (0.55-1.02); EST Glomerular Filtration Rate 85 mL/min (>60); Est Glom Filt Rate - Afr Amer 103 mL/min (>60); Estimated Creatinine Clearance 86.36 ml/min; Glucose 97 mg/dL (74-106); Potassium 4.4 mmol/L (3.5-5.1); Sodium Level 134 mmol/L (136-145)
[2024-03-18 16:43] LABS: Absolute Lymphocyte Count 2.72 X10^3/uL (0.83-4.51); Basophil# 0.05 X10^3/uL; Basophil% 0.5 % (0-1); Eosinophil# 0.17 X10^3/uL; Eosinophils% 1.6 % (0-5); Hematocrit 40.2 % (37-47); Hemoglobin 12.8 g/dL (12.0-15.0); Lymphocyte # 2.72 X10^3/ul (0.83-4.51); Lymphocyte % 25.6 % (19-41); Mean Corp Hgb Conc 31.8 g/dL (32-36); Mean Corpuscular Hgb 27.4 pg (27.0-32.0); Mean Corpuscular Volume 85.9 fL (81-99); Mean Platelet Vol. 10.2 fl (6.2-12.0); Monocyte# 0.65 X10^3/uL; Monocyte% 6.1 % (0-10); NRBC Flagged by Analyzer 0 % (0-5); Neutrophil # 6.98 X10^3/uL (2.7-7.7); Neutrophil % 65.8 % (47-70); Platelet Count 225 K/mm3 (150-450); RBC Distribution Width CV 13.4 % (11.6-14.6); RBC Distribution Width SD 41.6 fl (35.1-43.9); Red Blood Count 4.68 M/mm3 (4.2-5.4); White Blood Count 10.6 K/mm3 (4.4-11.0)
[2024-03-18 16:56] VITALS: BP 105/62; PULSE 71; RESP 16; O2SAT 99
[2024-03-18] MEDS: Morphine 2 MG/ML Syringe IV (16:57)
[2024-03-18 17:00] VITALS: BP 106/58; PULSE 68; RESP 18; TEMP 36.6; O2SAT 98
[2024-03-18 18:00] VITALS: BP 112/72; PULSE 66; RESP 18; TEMP 36.6; O2SAT 99
[2024-03-18] MEDS: Smz/Tmp Ds Tablet 1 TABLET PO (18:41)
== END 2024-03-18 18:48 | disposition home or self-care (01) ==
PROVIDERS: Emergency Provider Emergency Medicine; PCP Internal Medicine; Visit Provider Emergency Medicine
DX: N12 Tubulo-interstitial nephritis, not specified as acute or chronic (principal); I50.32 Chronic diastolic (congestive) heart failure; I48.91 Unspecified atrial fibrillation; E11.9 Type 2 diabetes mellitus without complications; R30.0 Dysuria; E87.1 Hypo-osmolality and hyponatremia; E78.5 Hyperlipidemia, unspecified; Z86.16 Personal history of COVID-19; Z79.82 Long term (current) use of aspirin; Z90.49 Acquired absence of other specified parts of digestive tract; Z95.810 Presence of automatic (implantable) cardiac defibrillator
CPT/HCPCS: 74176; 80048; 85025; 96361; 96374; 96375; 99283; J7040; A4216

== ENCOUNTER → 2024-03-21 | Outpatient (CLI) | payer BC, SELFPAY ==
--- NOTE | 2024-03-21 15:05 | ART_ITS ---
Reason For Study: COLD EXTREMITIES Procedure A bilateral lower extremity continuous wave Doppler with analog waveform analysis and ankle brachial indexes. Left Segmental Pressures Left brachial= 97mmHg. Left posterior tibial artery = 136mmHg. Left dorsalis pedis artery = 119mmHg. The left posterior tibial artery waveforms are triphasic. The left dorsalis pedis waveforms are triphasic. Right Segmental Pressures Right brachial= 101mmHg. Right posterior tibial artery = 141mmHg. Right dorsalis pedis artery = 125mmHg. The right posterior tibial artery waveforms are triphasic. The right dorsalis pedis waveforms are triphasic. Indices The right resting ankle brachial index is 1.40. The right ankle brachial index by the posterior tibial artery is 1.40. The right ankle brachial index by the dorsalis pedis is 1.24. The left resting ankle brachial index is 1.35. The left ankle brachial index by the posterior tibial artery is 1.35. The left ankle brachial index by the dorsalis pedis is 1.18. VL/Ankle Brachial Index Interpretation Summary Right MICHAEL 1.4, normal. Doppler/PVR waveforms of the right ankle normal at rest. Left MICHAEL 1.35, normal. Doppler/PVR waveforms of the left ankle normal at rest. Ordering Physician: Cyndi Elizondo Referring Physician: Emani Rodríguez Performed By: Jolene Vaughan RVT, RDCS
== END | disposition home or self-care (01) ==
LOC: CVS 15:03
PROVIDERS: PCP Internal Medicine; Referring Provider Nurse Practitioner Gerontology; Visit Provider Nurse Practitioner Gerontology
DX: R20.9 Unspecified disturbances of skin sensation (principal)
CPT/HCPCS: 93922

== ENCOUNTER → 2024-06-01 | Outpatient (CLI) | payer BC, SELFPAY | END | disposition home or self-care (01) | PROVIDERS: PCP Internal Medicine; Referring Provider Internal Medicine; Visit Provider Internal Medicine | DX: E11.9 Type 2 diabetes mellitus without complications (principal) | CPT/HCPCS: 36415; 83036 ==

== ENCOUNTER → 2024-06-16 | Outpatient (CLI) | payer BC, SELFPAY ==
--- NOTE | 2024-06-16 13:47 | ECHOD_ITS ---
Reason For Study: CHF Procedure This was a 2D Doppler, Color Flow transthoracic echocardiogram. Exam performed in department. Left Ventricle Normal LV size. The estimated ejection fraction is 55 %. No evidence for diastolic dysfunction. No regional wall motion abnormalities noted. Right Ventricle ICD or pacer leads identified within the right ventricle. Normal RV size. Normal systolic function. Atria The left and right atria are normal. ICD or pacer leads identified within the right atrium. Mitral Valve The mitral valve is structurally normal. No prolapse or stenosis seen. Trivial mitral valve insufficiency. Tricuspid Valve Normal tricuspid valve. Trivial tricuspid valve insufficiency. Unable to estimate RV systolic pressure due to insufficient tricuspid regurgitant envelope. Aortic Valve Trisinus/trileaflet aortic valve. Trivial aortic valve insufficiency. Pulmonic Valve Normal pulmonic valve. Trivial pulmonic valve insufficiency. Great Vessels Normal aortic root. Pericardium/Pleural No pericardial effusion. MMode/2D Measurements & Calculations LVIDd: 3.7 cm IVSd: 1.0 cm LVOT diam: 1.7 cm LVIDs: 2.7 cm LVPWd: 0.92 cm LVOT area: 2.3 cm2 RVDd: 3.4 cm FS: 26.8 % Ao root diam: 2.4 cm LAV(MOD-bp): 20.0 ml LVAd ap4: 23.2 cm2 LAV(MOD-bp) Indexed: 10.8 ml/m2 LVLd ap4: 7.7 cm LAV(MOD-sp2): 23.0 ml EDV(MOD-sp4): 64.2 ml LAV(MOD-sp4): 15.1 ml EDV(sp4-el): 59.8 ml LVAs ap4: 12.3 cm2 LVLs ap4: 6.2 cm ESV(MOD-sp4): 23.0 ml ESV(sp4-el): 20.8 ml EF(MOD-sp4): 64.3 % EF(sp4-el): 65.1 % SV(MOD-sp4): 41.3 ml SV(sp4-el): 38.9 ml LA A4 area: 9.0 cm2 SI(MOD-sp4): 22.4 ml/m2 LA dimension(2D): 2.6 cm RA A4 area: 7.2 cm2 Time Measurements MV dec time: 0.15 sec Doppler Measurements & Calculations MV E max loki: 59.6 cm/sec Lat Peak E' Loki: 9.1 cm/sec Med Peak E' Loki: 8.0 cm/sec MV A max loki: 53.3 cm/sec E/E' lat: 6.6 E/E' med: 7.4 MV E/A: 1.1 MV V2 max: 70.1 cm/sec Ao V2 max: 116.0 cm/sec MV max P.0 mmHg MV dec slope: 408.0 cm/sec2 Ao max P.4 mmHg MV V2 mean: 47.3 cm/sec Ao V2 mean: 80.0 cm/sec MV mean P.0 mmHg Ao mean P.9 mmHg MV V2 VTI: 16.9 cm Ao V2 VTI: 23.1 cm AV (velocity ratio): 0.85 MVA(VTI): 2.7 cm2 MELE(I,D): 2.0 cm2 MELE(V,D): 2.0 cm2 LV V1 max: 102.8 cm/sec SV(LVOT): 45.1 ml PA V2 max: 96.8 cm/sec LV V1 max P.2 mmHg PA V2 mean: 70.1 cm/sec LV V1 mean P.4 mmHg LV V1 mean: 72.4 cm/sec LV V1 VTI: 19.6 cm ECHO/Echo Complete Interpretation Summary The estimated ejection fraction is 55 %. No evidence for diastolic dysfunction. Trivial aortic valve insufficiency. Ordering Physician: Aydin Cee Referring Physician: Aydin Cee Performed By: Rupa Johnson RCS
== END | disposition home or self-care (01) ==
PROVIDERS: PCP Internal Medicine; Referring Provider Nurse Practitioner Family; Visit Provider Nurse Practitioner Family
DX: I50.32 Chronic diastolic (congestive) heart failure (principal); I44.7 Left bundle-branch block, unspecified; Z95.810 Presence of automatic (implantable) cardiac defibrillator
CPT/HCPCS: 93306

== ENCOUNTER → 2024-06-21 | Outpatient (CLI) | payer BC, SELFPAY | END | disposition home or self-care (01) | LOC: PSN 07:51 | PROVIDERS: PCP Internal Medicine; Referring Provider Nurse Practitioner Family; Visit Provider Nurse Practitioner Family | DX: J45.40 Moderate persistent asthma, uncomplicated (principal) | CPT/HCPCS: 94060; 94726; 94729 ==

== ENCOUNTER → 2024-06-27 | Outpatient (CLI) | payer BC, SELFPAY ==
[2024-06-27 08:15] VITALS: PULSE 104; PULSE 108; PULSE 109; PULSE 87; PULSE 88; PULSE 94; O2SAT 100; O2SAT 97; O2SAT 98; O2SAT 99
--- NOTE | 2024-06-27 08:42 | CPS ---
Pt was tolerating walk well until start of minute 4. Pt stated she was feeling dizzy and S.O.B. Pt was stopped and helped to wall to lean on. Pt continued to state she was dizzy through remainder of time so walk was not resumed. Pt was help by this therapist and another MATERIAL COORDINATOR to the PFT lab to sit. Pt continued to C/O dizziness and chest tightness. Pt saturation was 99 - 1oo% and had never fell below 97% during or post walk. Pt was asked if she had a rescue inhaler. Pt stated she did but did not have it with her. Pt remained in room with this therapist for another 10 minutes until she felt she was no longer dizzy and was safe to leave.
--- NOTE | 2024-07-03 10:35 | WT_ITS ---
PSN 6 Minute Walk Test 6 Minute Walk Test 6 Minute Walk Test: 6 Minute Walk Test PSN:6-Minute Walk Test Start: 06/27/24 08:36 Freq: Status: Active Protocol: RESP.6MINW Document 06/27/24 08:15 [facility] (Rec: 06/27/24 08:50 [facility] [id number]) 6 Minute Walk Test Date Performed 06/27/24 Time Performed 08:15 Height 5 ft Weight: 170 lb Weight in Pounds 170.[address]: Beau Assistive device used: None Pre-test Oxygen Delivery Method Room Air Pulse Ox (%) 97 Pulse Rate (60-100 beats/min) 88 Dyspnea Omid Scale (0-10) 0.5 Exertion Omid Scale (6-20) 6 1st minute Oxygen Delivery Method Room Air Pulse Ox (%) 99 Pulse Rate (60-100 beats/min) 94 2nd minute Oxygen Delivery Method Room Air Pulse Ox (%) 98 Pulse Rate (60-100 beats/min) 104 H 3rd minute Oxygen Delivery Method Room Air Pulse Ox (%) 98 Pulse Rate (60-100 beats/min) 109 H 4th minute Oxygen Delivery Method Room Air Pulse Ox (%) 99 Pulse Rate (60-100 beats/min) 108 H Dyspnea Omid Scale (0-10) 3 Number of Rests Taken 1 Reported Symptoms Dizziness 5th minute Dyspnea Omid Scale (0-10) 3 Number of Rests Taken 1 Reported Symptoms Dizziness 6th minute Dyspnea Omid Scale (0-10) 3 Number of Rests Taken 1 Reported Symptoms Dizziness Post-test Oxygen Delivery Method Room Air Pulse Ox (%) 100 Pulse Rate (60-100 beats/min) 87 Full Laps Walked 15 Partial Lap, Number of Tiles Walked 0 Total Distance Walked (ft) 885 06/27/24 08:42 Cardiopulmonary Services by Marilou Greenfield Pt was tolerating walk well until start of minute 4. Pt stated she was feeling dizzy and S.O.B. Pt was stopped and helped to wall to lean on. Pt continued to state she was dizzy through remainder of time so walk was not resumed. Pt was help by this therapist and another COMMUNITY SERVICE REPRESENTATIVE to the PFT lab to sit. Pt continued to C/O dizziness and chest tightness. Pt saturation was 99 - 1oo% and had never fell below 97% during or post walk. Pt was asked if she had a rescue inhaler. Pt stated she did but did not have it with her. Pt remained in room with this therapist for another 10 minutes until she felt she was no longer dizzy and was safe to leave. Initialized on 06/27/24 08:42 - END OF NOTE Interpretation Interpretation: The patient ambulated 885 feet over the course of 4 minutes beginning on room air without assistive devices. Respiratory therapy reported that the patient was unable to complete testing beyond 4 minutes due to shortness of breath and dizziness. Pretesting oxygen saturation was noted to be 97% on room air. With ambulation, the jonatan oxygen saturation was 98%. There was no significant exertional oxygen desaturation. Recommendations Recommendations: There is no indication for the use of supplemental oxygen at this time.
== END | disposition home or self-care (01) ==
LOC: PSN 08:06
PROVIDERS: PCP Internal Medicine; Referring Provider Nurse Practitioner Family; Visit Provider Nurse Practitioner Family
DX: J45.40 Moderate persistent asthma, uncomplicated (principal)

== ENCOUNTER → 2024-07-31 | Outpatient (CLI) | payer BC, SELFPAY ==
[2024-07-31 11:01] LABS: Absolute Neutrophil Count 5.1 X10^3/uL (2.0-7.7); Basophil# 0.04 X10^3/uL; Basophil% 0.6 % (0-1); Eosinophil# 0.06 X10^3/uL; Eosinophils% 0.8 % (0-5); Hematocrit 38.7 % (37-47); Hemoglobin 12.5 g/dL (12.0-15.0); Lymphocyte % 22.3 % (19-41); Mean Corp Hgb Conc 32.3 g/dL (32-36); Mean Corpuscular Hgb 27.7 pg (27.0-32.0); Mean Corpuscular Volume 85.6 fL (81-99); Mean Platelet Vol. 9.9 fl (6.2-12.0); Monocyte# 0.38 X10^3/uL; Monocyte% 5.3 % (0-10); NRBC Flagged by Analyzer 0 % (0-5); Neutrophil # 5.08 X10^3/uL (2.7-7.7); Neutrophil % 70.9 % (47-70); Platelet Count 244 K/mm3 (150-450); RBC Distribution Width CV 13.6 % (11.6-14.6); RBC Distribution Width SD 42.4 fl (35.1-43.9); Red Blood Count 4.52 M/mm3 (4.2-5.4); White Blood Count 7.2 K/mm3 (4.4-11.0)
[2024-07-31 11:38] LABS: AST(SGOT) 15 U/L (15-37); Alanine Aminotransfer ALT/SGPT 23 U/L (13-56); Albumin, Serum 3.6 g/dL (3.2-5.0); Alkaline Phosphatase 144 U/L (45-117); Bilirubin, Direct 0.11 mg/dL (0.00-0.30); Cholesterol 149 mg/dL (200); Globulin 3.5 g/dL (2.2-4.2); High Density Lipoprotein 60 mg/dL; Protein, Total 7.1 g/dL (6.4-8.2); Triglycerides 80 mg/dL; Very Low Density Lipoprotein 16 mg/dL (5-40)
[2024-08-01 10:32] LABS: Anion Gap 6 (5-15); BUN 15 mg/dL (7-18); BUN/Creat Ratio 14.9 RATIO (10-20); Calcium,Total 9.3 mg/dL (8.5-10.1); Chloride 107 mmol/L (98-107); Creatinine, Serum 1.01 mg/dL (0.55-1.02); EST Glomerular Filtration Rate 61 mL/min (>60); Est Glom Filt Rate - Afr Amer 74 mL/min (>60); Glucose 124 mg/dL (74-106); Sodium Level 141 mmol/L (136-145)
== END | disposition home or self-care (01) ==
LOC: LAB 10:36
PROVIDERS: Nurse Practitioner Family; PCP Internal Medicine
DX: Z01.818 Encounter for other preprocedural examination (principal)
CPT/HCPCS: 36415; 80048; 80061; 80076; 85025

== ENCOUNTER → 2024-08-25 | Outpatient (CLI) | payer BC, SELFPAY ==
[2024-08-28 16:08] LABS: Alkaline Phosphatase, Serum 138 IU/L (44-121); Bone Fraction 22 % (14-68); Intestinal Fraction 9 % (0-18); Liver Fraction 69 % (18-85)
== END | disposition home or self-care (01) ==
LOC: LAB 07:25
PROVIDERS: PCP Internal Medicine; Referring Provider Internal Medicine; Visit Provider Internal Medicine
DX: R74.8 Abnormal levels of other serum enzymes (principal)
CPT/HCPCS: 36415; 84075; 84080

== ENCOUNTER → 2024-09-27 | Outpatient (CLI) | payer BC, SELFPAY ==
--- NOTE | 2024-09-27 16:50 | CT_ITS ---
PROCEDURE: CHEST WITHOUT CONTRAST 09/27/2024 REASON FOR EXAM: SHORTNESS OF BREATH, PREVIOUS GROUND GLASS OPACITY TECHNIQUE: Chest CT without contrast. Coronal and Sagittal reconstruction series were provided. One or more dose reduction techniques were used (e.g., Automated exposure control, adjustment of the mA and/or kV according to patient size, use of iterative reconstruction technique RADIATION DOSE SUMMARY: CTDlvol: mGy DLP: mGycm COMPARISON: none FINDINGS: Bilateral upper lobes reticulations and right lower lobe calcified nodule. Left lower lung lobe 3 mm pulmonary nodule. No obvious pulmonary masses, consolidations or cavitary changes. Bilateral pulmonary atelectatic plates. The heart size is within normal. Cardiac pacemaker is noted. No pleural or pericardial effusion. No pathologically enlarged lymph nodes are noted. No definite mass lesion in the chest wall. Intact bony thoracic cage with no fractures or osseous destruction. The examined vertebrae showing preserved height with no fracture of dislocation. Thoracic spondylosis. Scanned upper abdomen show cholecystectomy clips. CT/Chest without Contrast IMPRESSION: No acute cardiopulmonary abnormalities. Left lower lung lobe 3 mm pulmonary nodule. According to Fleischner society of radiology, no follow up in low risk patients. No obvious pulmonary masses or consolidations. Reading [facility]
== END | disposition home or self-care (01) ==
LOC: CT 16:44
PROVIDERS: PCP Internal Medicine; Referring Provider Nurse Practitioner Family; Visit Provider Nurse Practitioner Family
DX: R06.02 Shortness of breath (principal)
CPT/HCPCS: 71250

== ENCOUNTER → 2024-10-20 | Outpatient (CLI) | payer BC, SELFPAY ==
[2024-10-20 08:37] LABS: Erythrocyte Sedimentation Rate 8 mm/hr (0-30)
[2024-10-20 09:56] LABS: CRP 3.65 mg/L (0.0-3.0)
[2024-10-23 14:08] LABS: ANTINUCLEAR ANTIBODIES DIRECT Negative (Negative)
== END | disposition home or self-care (01) ==
LOC: LAB 07:52
PROVIDERS: PCP Internal Medicine; Referring Provider Internal Medicine; Visit Provider Internal Medicine
DX: R74.8 Abnormal levels of other serum enzymes (principal)
CPT/HCPCS: 36415; 85652; 86038; 86140; 86225

== ENCOUNTER → 2024-11-13 | Outpatient (CLI) | payer BC, SELFPAY ==
--- NOTE | 2024-11-13 16:20 | RAD_ITS ---
EXAM: Three views right tibia fibula. CLINICAL HISTORY: Patient fell 1 month ago. Pain below patella. Area was infected last month after the fall. COMPARISON: None TECHNIQUE: Three views of the right tibia and fibula. FINDINGS: There is normal mineralization of the osseous structures. There are no osteoblastic or osteolytic lesions seen. There is no osteomyelitis. There are no fractures or dislocations. Joint spaces are well preserved. Soft tissues are unremarkable. RAD/Tibia & Fibula 2 Views IMPRESSION: Unremarkable right tibia fibula study. Reading Location: [id number]
== END | disposition home or self-care (01) ==
LOC: MTRAD 16:20
PROVIDERS: PCP Internal Medicine; Referring Provider Internal Medicine; Visit Provider Internal Medicine
DX: S80.11XA Contusion of right lower leg, initial encounter (principal)
CPT/HCPCS: 73590

== ENCOUNTER 2024-11-20 17:00 | Outpatient (RCR) | payer BC, SELFPAY ==
--- NOTE | 2024-10-09 19:37 | HP.PTEVAL_ITS ---
Patient's Visit Information Visit Information Visit Information: RAZA MANCUSO is a 54 year old F referred to Physical Therapy by Bang Little with a diagnosis of S/P L4-5 & L5-S1 LAMINECTOMY 08/04/23 (8 WKS PO TODAY).. Date of Evaluation: 10/02/24 Physical Therapist: Gretel Michelle, PT, Cert MDT Visit Plan Frequency: 2-3x /Week Duration: 6-8 WKS Plan: POSTURE CORRECTION/STRENGTHENING, INSTRUCTION IN APPROPRIATE BODY MECHANICS AND ACTIVITY MODIFICATIONS INCLUDING WEANING FROM BACK BRACE STARTING NEXT VISIT. DLS STARTING WITH A NEUTRAL SPINE PROGRESSING ROM STARTING AT 3 MONTHS PO. VIRGINIE LE ROM, STRETCHING AND STRENGTHENING. HEP INSTRUCTION. 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 Disability: NO Present symptoms: WEAKNESS. PATIENT REPORTS SHE WENT FOR A WALK YESTERDAY TO TRY TO PUSH HERSELF AND HER LEFT HIP STARTED TO HURT GOING UP THE HILL AFTER ABOUT 15 MIN AND THEN HURT THE REST OF THE WAY BACK. THE PAIN DECREASED WITH REST. CONSTANT NUMBNESS FIRST 3 TOES L FOOT. INTERMITTENT TINGLING BACK OF L THIGH, CALF AND HEEL. Present since: 08/14/21 Pain Scale: NO PAIN OTHER THAN THE L HIP PAIN YESTERDAY. Is it getting better, worse or staying the same: GETTING BETTER Commenced as a result of: FALL AT WORK. Symptoms at onset: LOW BACK PAIN Worse: WALKING THE DOG YESTERDAY, GOING UP STEPS PROVOKES L KNEE PAIN. Better: REST Disturbed sleep: NO Previous history/Previous treatment: H/O LBP PRIOR TO FALL SELF TREATED ONLY. Treatment this episode: AFTER FALL TRIED PT PRIOR TO SURGERY BUT COULD NOT TOLERATE IT. ALSO TRIED PRESCRIPTION MEDICATION AND PAIN MGMT JACQUELINE'S WITHOUT BENEFIT. S/P L4-5 & L5-S1 LAMINECTOMY 08/04/23 (8 WKS PO TODAY). Coughing/sneezing/straining: NEGATIVE FOR INCREASED PAIN. Gait: ABOUT 30 MINUTE WALK YESTERDAY AT [employer] [facility] STARTING AND STOPPING WITH DOG AND . Bowel or Bladder Dysfunction: NONE CURRENT. Accidents: NO Unexplained weight loss: NO Imaging: MYELOGRAM BEFORE LUMBAR SX. CAN'T HAVE MRI DUE TO PACEMAKER. PMH/Recent major surgery: *PACEMAKER* NIDDM. HTN. HIGH CHOLESTEROL, NECK SX YEARS AGO, L ANKLE SX. OTHER: PATIENT REPORTS SURGEON HAS LEFT RESTRICTIONS UP TO PHYSICAL THERAPY BUT CURRENTLY ON LIFTING RESTRICTION. CURRENTLY WEARING BACK BRACE AT ALL TIMES OUTSIDE OF HOME BUT NOT IN HOME. F/U PENDING WITH SURGEON NEXT Wednesday10/12/24. SHE STATES SHE HAS BEEN TRYING NOT TO BEND AND TWIST BUT SHE HASN'T BEEN ABLE TO AVOID TWISTING BECAUSE SHE HAS A DOG THAT WEIGHS 25 TO 30 LBS AND SHE KNEELS DOWN TO HELP PUSH HIM UP ON TO THE BED AND CAN'T HELP BUT TWIST SOME. Objective Objective: Sitting/Standing Posture: L ILIAC CREST HIGHER THAN R. MILD ANTERIOR PELVIC TILT. Active Correction of posture: NE. ABLE TO CORRECT BUT DOES NOT MAINTAIN. Other Observations: INDEP GAIT AND TRANSFERS WITH NO GROSS DEVIATIONS NOTED. INDEP TRANSFER SIT TO STAND WITHOUT UE ASSIST. Sensory deficit: VIRGINIE LE LIGHT TOUCH SENSATION GROSSLY INTACT AND SYMMETRICAL EXCEPT L 1ST, 2ND AND 3RD TOES WHICH HAVE DECREASED LIGHT TOUCH SENSATION COMPARED TO R. ROM deficit: VIRGINIE LE HS AND CALF TIGHTNESS L > R. R HIP IR/ER TIGHTNESS AND PAIN WITH TESTING. Motor deficit: R HIP 4/5, KNEE 5/5, ANKLE 5/5. L HIP 4-/5, KNEE 4/5, ANKLE 5/5 . VIRGINIE EHL 5/5. Reflexes: VIRGINIE QUADS 2+, VIRGINIE ACHILLES 2+ Dural Signs: - VIRGINIE LE'S NEGATIVE. Lumbar mvmt loss: NT Core strength: POOR Palpation: TENDERNESS L GREATER TROCH REGION. OTHER: EVAL NEEDED TO BE STOPPED DURING SUBJECTIVE PORTION DUE TO PATIENT FELLING NAUSEOUS AND VOMITING. PATIENT THEN WANTING TO PROCEED WITH EVALUATION. THIS PT PROCEEDED WITH MODIFIED EVAL DUE TO PATIENT STILL NOT LOOKING LIKE SHE FELT VERY GOOD EVEN THOUGH SHE WAS REQUESTING TO CONTINUE. Balance/Special Test Scores Oswestry Low Back Score: 4 Goals Goal 1:: DECREASE C/O L LE SX'S BY AT LEAST 80% Goal Time Frame: 6-8 Weeks Goal 2:: PATIENT WILL HAVE VIRGINIE LE ROM WFL ALL PLANES W/O C/O PAIN TO HELP PATIENT RETURN TO NORMAL FUNCTION Goal Time Frame: 6-8 Weeks Goal 3:: PATIENT WILL HAVE LUMBAR ROM WFL ALL PLANES WITHOUT C/O PAIN Goal Time Frame: 6-8 Weeks Goal 4:: PATIENT WILL HAVE CORE AND VIRGINIE LE STRENGTH WFL TO HELP PATIENT RETURN TO NORMAL FUNCTION. Goal Time Frame: 8-12 Weeks Goal 5:: INDEP HEP Goal Time Frame: 8-12 Weeks Rehabilitation Potential Physical Therapy Diagnosis: CORE WEAKNESS WITH VIRGINIE LE WEAKNESS AND STIFFNESS L>R. Rehabilitation Potential: Good Anticipated Interventions Patient/Client Instruction: Educate patient on: Condition, Plan of Care and Risk Factors For the Purpose of:: To improve self management Therapeutic Exercise to Include: Strength training, Body mechanics, Postural training, Flexibilty training, Neuromotor development and Dynamic Lumbar Stabilization For the Purpose of:: To improve muscle performance and motor function, To increase tolerance to activity/condition/position, To improve ability of physical actions for home/community/work/leisure, To increase flexibility/ROM and To improve self management Cryotherapy (ice pack, ice massage): Yes Thermo therapy (hot pack): Yes For the Purpose of:: To decrease pain, To decrease swelling/inflammation and To improve nutrient delivery to tissue Text: Thank you for the opportunity to evaluate your patient. For Medicare and Medicare HMO plans, please review the plan of care and approve it. It will need to be FAXED BACK to us at [phone] for Medicare purposes. For Medicare only, by signing this I certify the plan of care. Please let me know if there are questions or concerns regarding this plan of care. Physician Signature: Date:
--- NOTE | 2024-11-20 17:25 | HP.PTDCSUM_ITS ---
Discharge Summary D/C summary: It has been my pleasure to treat RAZA MANCUSO referred by Bang Little, with the diagnosis of S/P L4-5 & L5-S1 LAMINECTOMY 08/04/23 for a total of 15 visit(s). Discharge Date: 11/20/24 Please see the following information for a summary of their discharge status. Subjective Subjective: PATIENT REPORTS SHE IS DOING GREAT. STATES SHE HAS A MEMBERSHIP AT THE [employer] AND WENT WITH HER ONCE ALREADY. REPORTS SHE DID GOOD AFTER LAST PT SESSION AND WOULD BE HAPPY IF WE AGREE WITH HER BEING DISCHARGED FROM PT. STATES SHE DOESN'T FEEL RESTRICTED IN ANYTHING AND IS NO LONGER WEARING THE BRACE. Overall Improvement % Improvement: 100 Objective Objective/Function: PATIENT WAS SEEN TODAY FOR RE-ASSESSMENT OF PROGRESS TOWARD THE SET PT GOALS AND THE NEED FOR FURTHER PHYSICAL THERAPY VS READINESS FOR DISCHARGE. UPON EXAM TODAY: INDEP GAIT AND TRANSFERS WITHOUT GROSS DEVIATION OR GUARDING. VIRGINIE LE STRENGTH 5/5. LE ROM: MILD LE STIFFNESS BUT WFL AND NO C/O PAIN WITH TESTIN. LUMBAR MVMT LOSS: FLEX - MIN EXT - MOD R SG - MIN L SG - NIL PATIENT DENIES PAIN WITH LUMBAR ROM TESTING. NEGATIVE VIRGINIE LE DURAL SIGNS. Goals Goal 1:: DECREASE C/O L LE SX'S BY AT LEAST 80% Goal Progress: Goal Met Goal 2:: PATIENT WILL HAVE VIRGINIE LE ROM WFL ALL PLANES W/O C/O PAIN TO HELP PATIENT RETURN TO NORMAL FUNCTION Goal Progress: Goal Met Goal 3:: PATIENT WILL HAVE LUMBAR ROM WFL ALL PLANES WITHOUT C/O PAIN Goal Progress: Progressing Goal 4:: PATIENT WILL HAVE CORE AND VIRGINIE LE STRENGTH WFL TO HELP PATIENT RETURN TO NORMAL FUNCTION. Goal Progress: Goal Met Goal 5:: INDEP HEP Goal Progress: Goal Met Plan Plan: D/C TO INDEP EX. PATIENT AGREEABLE. D/C Information d/c sentence: If there are questions or concerns regarding this patient's physical therapy, please feel free to call me at [phone]. Thank you for the referral of this patient. Sincerely, Gretel Michelle, PT, Cert MDT Balance/Gait/Functional tests Balance/Special Test Scores Oswestry Low Back Score: 0 Improvement % Improvement: 100
== END 2024-11-20 19:00 | disposition home or self-care (01) ==
LOC: PT 17:00
PROVIDERS: PCP Internal Medicine; Referring Provider Orthopaedic Surgery; Visit Provider Orthopaedic Surgery
DX: M54.10 Radiculopathy, site unspecified (principal); Z98.890 Other specified postprocedural states
CPT/HCPCS: 97110; 97162; 97530

== ENCOUNTER → 2024-12-07 | Outpatient (CLI) | payer BC, SELFPAY ==
[2024-12-07 09:57] LABS: Absolute Lymphocyte Count 2.05 X10^3/uL (0.83-4.51); Absolute Neutrophil Count 5.4 X10^3/uL (2.0-7.7); Basophil# 0.06 X10^3/uL; Basophil% 0.7 % (0-1); Eosinophil# 0.22 X10^3/uL; Eosinophils% 2.6 % (0-5); Hematocrit 39.2 % (37-47); Hemoglobin 12.3 g/dL (12.0-15.0); Lymphocyte # 2.05 X10^3/ul (0.83-4.51); Lymphocyte % 24.2 % (19-41); Mean Corp Hgb Conc 31.4 g/dL (32-36); Mean Corpuscular Hgb 25.7 pg (27.0-32.0); Mean Platelet Vol. 10.7 fl (6.2-12.0); Monocyte# 0.71 X10^3/uL; Monocyte% 8.4 % (0-10); NRBC Flagged by Analyzer 0 % (0-5); Neutrophil % 63.7 % (47-70); Platelet Count 268 K/mm3 (150-450); RBC Distribution Width CV 14.6 % (11.6-14.6); RBC Distribution Width SD 43.5 fl (35.1-43.9); Red Blood Count 4.78 M/mm3 (4.2-5.4); White Blood Count 8.5 K/mm3 (4.4-11.0)
[2024-12-07 10:40] LABS: ALB/GLOB Ratio 1.7 RATIO (0.9-2.4); AST(SGOT) 19 U/L (<=31); Alanine Aminotransfer ALT/SGPT 14 U/L (<=34); Albumin, Serum 4.5 g/dL (3.5-5.0); Alkaline Phosphatase 158 U/L (35-104); Anion Gap 12 (5-15); BUN 11 mg/dL (4-19); BUN/Creat Ratio 13.1 RATIO (10-20); Calcium,Total 9.4 mg/dL (7.6-11.0); Carbon Dioxide 26.8 mmol/L (21.0-32.0); Chloride 105 mmol/L (98-108); Creatinine, Serum 0.86 mg/dL (0.70-1.20); EST Glomerular Filtration Rate 80 (>60); Globulin 2.6 g/dL (2.2-4.2); Glucose 77 mg/dL (70-99); Magnesium 2.2 mg/dL (1.5-2.2); Protein, Total 7.1 g/dL (5.9-8.4); Sodium Level 144 mmol/L (133-145); Total Bilirubin 0.28 mg/dL (0.00-1.30); Vitamin B12 444 pg/mL (180-914); Vitamin D,25 Hydroxy 25.6 ng/mL (30-100)
[2024-12-07 11:11] LABS: Hemoglobin A1c 6.2 % (<=5.6)
[2024-12-07 12:22] LABS: Cholesterol 178 mg/dL (<=200); High Density Lipoprotein 50 mg/dL; Low Density Lipoprotein Calc. 103 mg/dL; Triglycerides 123 mg/dL; Very Low Density Lipoprotein 25 mg/dL (5-40); cholesterol:hdl ratio screen 3.53
== END | disposition home or self-care (01) ==
LOC: LAB 09:26
PROVIDERS: PCP Internal Medicine; Referring Provider Internal Medicine; Visit Provider Internal Medicine
DX: R73.9 Hyperglycemia, unspecified (principal); E66.9 Obesity, unspecified; E78.5 Hyperlipidemia, unspecified; G47.19 Other hypersomnia; E53.8 Deficiency of other specified B group vitamins; E55.9 Vitamin D deficiency, unspecified
CPT/HCPCS: 36415; 80053; 80061; 82306; 82607; 83036; 83735; 84443; 85025

== ENCOUNTER → 2024-12-21 | Outpatient (CLI) | payer BC, SELFPAY ==
--- NOTE | 2024-12-21 07:05 | US_ITS ---
EXAM: US Abdomen Limited, Right Upper Quadrant CLINICAL INDICATION: RU ABD PAIN, ELEVATED ALK PHOS, REMOTE LAP CHOLECY TECHNIQUE: Real-time ultrasound of the right upper quadrant with image documentation. COMPARISON: No relevant prior studies available. FINDINGS: LIVER: Liver measures up to 15.8 cm. Fatty infiltration of the liver. No intrahepatic bile duct dilation. GALLBLADDER: Cholecystectomy. COMMON BILE DUCT: Unremarkable as visualized. No stones. No dilation. Common bile duct measures 0.45 cm in diameter. PANCREAS: Unremarkable as visualized. RIGHT KIDNEY: Unremarkable. No stones. No hydronephrosis. The right kidney measures 10.2 x 5.5 x 4.1 cm. US/Abdomen Limited IMPRESSION: Fatty infiltration of the liver. Reading Location: [id number]
--- OUTSIDE RECORDS SUMMARY | 2024-12-21 07:09 | XMS RPT_ITS | CCD ---
Author Organization [facility] Care Team Providers Care Aircraft Navigator Name Role Phone YOANNA GALLEGOS Unavailable Unavailable Yanira Lyons Unavailable Unavailable DR YANIRA LYONS MD Primary Care Physician Yanira Lyons MD Primary Care Provider Dagoberto Durham MD Unavailable DR YANIRA LYONS MD Primary Care Physician Dr. Yanira Lyons Primary Care Provider Dr. Yanira Lyons Referring Provider RYAN Mac Attending Provider Dr. Mckenna Baeza Other Provider Dr. Vincent Baeza Attending Provider Dr. Vincent Baeza Referring Provider Dr. Maynor Meredith Attending Provider RYAN Mac Referring Provider RYAN Guerra Attending Provider Dr. Felix Kendall Attending Provider Dr. Yanira Lyons Primary Care Provider [phone] Dr. Yanira Lyons Referring Provider RYAN Mac Attending Provider Yanira Lyons MD Primary Care Provider Dagoberto Durham MD Unavailable DR. YANIRA LYONS MD. Primary Care Unavail able HALIE PHILIP MD Attending Unavailable SERENA MORRIS, DR. DOYLE Primary Care Unavail able HALIE PHILIP MD Attending Unavailable SERENA MORRIS, DR. DOYLE Primary Care Unavail able GALILEA WRIGHT, TAMY Attending Unavailable AQUILES PETTIT Attending Unavailable SERENA MORRIS, DR. DOYLE Primary Care Unavail able Serena WRIGHT, Yanira Garcia Primary Care Provider Herminio WRIGHT, Dagoberto Unavailable Dr. Bhavana Rodríguez Primary Care Provider Dr. Bhavana Rodríguez Attending Provider Dr. Bhavana Rodríguez Referring Provider Dr. Derek Schafer Attending Provider Dr. Derek Schafer Other Provider MD Naresh Dobbs Emergency Provider Koram, Dr. Shante Eisenberg Admit Provider Korsuleiman, Dr. Shante Eisenberg Attending Provider Korsuleiman, Dr. Shante Eisenberg Other Provider Dr. Bhavana Rodríguez Primary Care Provider Dr. Bhavana Rodríguez Attending Provider Dr. Bhavana Rodríguez Referring Provider Dr. Derek Schafer Attending Provider Dr. Derek Schafer Other Provider MD Naresh Dobbs Emergency Provider Koram, Dr. Shante Eisenberg Admit Provider Tanvir, Dr. Shante Eisenberg Attending Provider Koram, Dr. Shante Eisenberg Other Provider Bhavana Rodríguez Unavailable Zachery Latif Unavailable Unavailabl e Dr. Zachery Laitf Attending Catrinav juan Rodríguez, Dr. Joaquin [place] Primary Care Unav Dr. Bhavana Wilson Primary Care Provider Dr. Maynor Meredith Attending Provider Dr. Marc Salazar Referring Provider Dr. Bhavana Rodríguez Referring Provider Dr. Marc Salazar Attending Provider MARIA EUGENIA Ambriz Attending Provider Unavail able Woo, Dr. Lance Attending Provider Dr. Bhavana Rodríguez Attending Provider Dr. Bhavana Rodríguez Primary Care Provider Woo, Dr. Lance Referring Provider Woo, Dr. Lance Other Provider Mikhail ALUMINUM SIDING APPLICATOR, ALUMINUM SIDING APPLICATOR-C Cyndi Attending Provider Herminio WRIGHT, Dagoberto Unavailable Dr. Bhavana Rodríguez Primary Care Provider Dr. Bhavana Rodríguez Referring Provider Dr. Marc Salazar Attending Provider MARIA EUGENIA Ambriz Attending Provider Unavail able Woo, Dr. Lance Attending Provider Dr. Bhavana Rodríguez Attending Provider Woo, Dr. Lance Referring Provider Woo, Dr. Lance Other Provider Mikhail RODRIGUEZ, ALUMINUM SIDING APPLICATOR-C Cyndi Attending Provider Dr. Bhavana Rodríguez Primary Care Provider Woo, Dr. Lance Attending Provider Dr. Bhavana Rodríguez Referring Provider Dr. Marc Salazar Attending Provider Dr. Bhavana Rodríguez Attending Provider Nadeen Mcclain Attending Provider Unavailable Serena WRIGHT, Yanira Garcia Primary Care Provider Bhavana Rodríguez MD Primary Care Provider Serena WRIGHT, Yanira Garcia Primary Care Provider Unavailable Primary Care Provider Unavailabl e MONISHA FRANKEL Attending Unavailable Dr. Bhavana Rodríguez MD Primary Care Provider Dr. Bhavana Rodríguez MD Referring Provider Matthewer ALUMINUM SIDING APPLICATOR-C, Meghan Hernandez Attending Provider Anne WRIGHT, Dr. Joaquin Attending Provider Roof ALUMINUM SIDING APPLICATOR-C, Aydin Mccabe Attending Provider Roof ALUMINUM SIDING APPLICATOR-C, Aydin Mccabe Referring Provider Woo WRIGHT, Dr. Lance Attending Provider Rumalinaer ALUMINUM SIDING APPLICATOR-C, Meghan Hernandez Referring Provider Angle ALUMINUM SIDING APPLICATOR-C, Meghan Hernandez Other Provider [phone] Vincent Baeza DO Attending Provider [phone] Masoud WRIGHT, Dr. Mcguire Attending Provider Masoud WRIGHT, Dr. Mcguire Referring Provider MONISHA FRANKEL Attending Provider MONISHA FRANKEL Referring Provider Dr. Bhavana Rodríguez MD Primary Care Provider [phone] Angle ALUMINUM SIDING APPLICATOR-C, Meghan Hernandez Attending Provider Dr. Bhavana Rodríguez MD Attending Provider Dr. Bhavana Rodríguez MD Referring Provider Bang Lynne Attending Provider Unavailable Bang Lynne Referring Provider Unavailable Dr. Bhavana Rodríguez MD Primary Care Provider Angle ALUMINUM SIDING APPLICATOR-C, Meghan Hernandez Attending Provider Angle ALUMINUM SIDING APPLICATOR-C, Meghan Hernandez Referring Provider Bang Lynne Attending Provider Unavailable Bang Lynne Referring Provider Unavailable CHARANJIT COKER Referring Unavailable ANNE, BHAVANA M Primary Care Unavailable ANNE, BHAVANA M Primary Care Unavailable CRYSTAL ASHFORD Attending Unavailable ANNE, BHAVANA M Primary Care Unavailable ANNE, BHAVANA M Primary Care Unavailable CHARANJIT COKER Referring Unavailable ANNE, BHAVANA M Primary Care Unavailable ANNE, BHAVANA M Primary Care Unavailable ANNE, BHAVANA M Primary Care Unavailable CHARANJIT COKER Referring Unavailable ANNE, BHAVANA M Primary Care Unavailable ANNE, BHAVANA M Primary Care Unavailable BRITTANY FLORIAN Referring Unavailable ANNE, BHAVANA M Primary Care Unavailable ANNE, BHAVANA M Primary Care Unavailable CHARANJIT COKER Attending Unavailable Dr. Bhavana Rodríguez MD Primary Care Provider [phone] Angle ALUMINUM SIDING APPLICATOR-CMeghan Attending Provider Angle ALUMINUM SIDING APPLICATOR-CMeghan Referring Provider Bang Lynne Attending Provider Unavailable Bang Lynne Referring Provider Unavailable Dr. Bhavana Rodríguez MD Primary Care Provider [phone] Dr. Maynor Meredith MD Attending Provider Dr. Maynor Meredith MD Referring Provider [phone] Bang Lynne Attending Provider Unavailable Bang Lynne Referring Provider Unavailable Bang Lynne Attending Provider Unavailable Bang Lynne Referring Provider Unavailable Dr. Bhavana Rodríguez MD Primary Care Provider [phone] Meghan Barbour Attending Unavailable Anne, Bhavana Referring Unavailable Anne, Bhavana Primary Care Unavailable Anne, Bhavana Referring Unavailable AnneBhavana Attending Unavailable Anne, Bhavana Primary Care Unavailable RufenerMeghan M Referring Unavailable RufenerMeghan M Attending Unavailable Anne, Bhavana Primary Care Unavailable Anne, Bhavana Primary Care Unavailable Woo, Natalio Attending Unavailable Woo Natalio Referring Unavailable Maynor Meredith Attending Unavailable Maynor Meredith Referring Unavailable Anne, Bhavana Primary Care Unavailable Anne, Bhavana Primary Care Unavailable Roof ALUMINUM SIDING APPLICATOR, Aydin H Attending Unavailable Roof ALUMINUM SIDING APPLICATOR, Aydin H Referring Unavailable MEGAN GOMEZ Attending Unavailable MEGAN GOMEZ Referring Unavailable Anne, Bhavana Primary Care Unavailable Anne, Bhavana Primary Care Unavailable Coleman ALUMINUM SIDING APPLICATOR, Aydin Mccabe Attending Unavailable Bang Lynne Attending Unavailable Shall Bang Referring Unavailable Anne, Bhavana Primary Care Unavailable Anne, Bhavana Primary Care Unavailable Mikhail ALUMINUM SIDING APPLICATOR, Cyndi Attending Unavailable Mikhail ALUMINUM SIDING APPLICATOR, Cyndi Referring Unavailable Anne, Bhavana Primary Care Unavailable Tr Quintanilla Attending Unavailable Masoud, Maynor Attending Unavailable Masoud, [place] Referring Unavailable Anne, Bhavana Primary Care Unavailable Anne, Bhavana Attending Unavailable Anne, Bhavana Primary Care Unavailable Anne, Bhavana Attending Unavailable Anne, Bhavana Primary Care Unavailable Anne, Bhavana Primary Care Unavailable Masoud, Maynor Attending Unavailable Masoud, [place] Referring Unavailable RumalinaerMeghan Attending Unavailable Anne, Bhavana Referring Unavailable Anne, Bhavana Primary Care Unavailable Masoud, [place] Attending Unavailable Masoud, Maynor Referring Unavailable Anne, Bhavana Primary Care Unavailable Meghan Barbour Attending Unavailable RufenerMeghan M Referring Unavailable Anne, Bhavana Primary Care Unavailable Meghan Barbour Attending Unavailable Rufener Meghan M Referring Unavailable Anne, Bhavana Primary Care Unavailable Anne, Bhavana Primary Care Unavailable Coleman ALUMINUM SIDING APPLICATOR, Aydin Mccabe Attending Unavailable Coleman ALUMINUM SIDING APPLICATOR, Aydin Mccabe Referring Unavailable Vincent Baeza Attending Unavailable RufenerMeghan Referring Unavailable RufenerMeghan Consulting Unavailable Anne, Bhavana Primary Care Unavailable Anne, Bhavana Referring Unavailable Anne, Bhavana Attending Unavailable Anne, Bhavana Primary Care Unavailable Anne, Bhavana Primary Care Unavailable Mikhail ALUMINUM SIDING APPLICATOR, Cyndi Attending Unavailable iMkhail ALUMINUM SIDING APPLICATORCyndi Referring Unavailable Anne, Bhavana Referring Unavailable Anne, Bhavana Attending Unavailable Anne, Bhavana Primary Care Unavailable Anne, Bhavana Referring Unavailable Anne, Bhavana Attending Unavailable Anne, Bhavana Primary Care Unavailable Anne, Bhavana Referring Unavailable Anne, Bhavana Attending Unavailable Anne, Bhavana Primary Care Unavailable Anne, Bhavana Referring Unavailable Anne, Bhavana Primary Care Unavailable Mikhail ALUMINUM SIDING APPLICATOR, Cyndi Attending Unavailable Anne, Bhavana Attending Unavailable Anne, Bhavana Referring Unavailable Anne, Bhavana Primary Care Unavailable Anne, Bhavana Primary Care Unavailable Masoud, [place] Attending Unavailable Masoud, [place] Referring Unavailable Anne, Bhavana Referring Unavailable Anne, Bhavana Attending Unavailable Anne, Bhavana Primary Care Unavailable Masoud, [place] Attending Unavailable Masoud, Maynor Referring Unavailable Anne, Bhavana Primary Care Unavailable Anne, Bhavana Attending Unavailable Anne, Bhavana Primary Care Unavailable Anne, Bhavana Primary Care Unavailable Natalio Berkowitz Attending Unavailable Mainor Pedraza Attending Unavailable Anne, Bhavana Primary Care Unavailable Cyndi Elizondo NP Referring Unavailable Anne, Bhavana Referring Unavailable Anne, Bhavana Primary Care Unavailable Benja ALUMINUM SIDING APPLICATOR, Flora Attending Unavailable Allergies Allergy Classification Reported Allergen(s) Allergy Type Date of Onset Reaction(s) Facility (20 sources) carvedilol; Translations: [CARVEDILOL] Drug Allergy 4 Other: See Comments, Other [facility] (20 sources) naproxen; Translations: [NAPROXEN] Drug Allergy 1 Hives [facility] (20 sources) vancomycin; Translations: [VANCOMYCIN] Drug Allergy 1 Other: See Comments, Other [facility] (2 sources) OTHER; Translations: [OTHER] Propensity to adverse reactions (disorder) 1 [facility] (20 sources) environmental [Other] Propensity to adverse reactions 1 Other: See Comments [facility] (12 sources) Seasonal allergy; Translations: [SEASONAL ALLERGIES] Allergy to substance 1 Intolerance [facility] Medications Current Medications Medication Drug Class(es) Dates Sig (Normalized) Sig (Original) acetaminophen 325 mg / HYDROcodone bitartrate 5 mg oral tablet (9 sources) Opioid Agonist Start: 01-06-2022 take 1 tablet by mouth every six hours as needed Hydrocodone-Aceta minophen Active 1 TABLET PO EVERY 6 HOURS NEEDED 12 3 January 06, 2022 Start: 09-22-2021 End: 09-25-2021 take 1 tablet by mouth every six hours as needed for pain [place] 325- 5 mg oral tablet Dose = 1 tab(s), Oral, q6h, PRN As needed for severe pain, X 3 day(s), # 12 tab(s), 0 Refill(s), Back pain, acute Start Date: 09/22/21 Stop Date: 09/25/21 Status: Ordered Start: 04-11-2021 End: 04-14-2021 take 1 tablet by mouth every six hours as needed for pain [place] 325- 5 mg oral tablet Dose = 1 tab(s), Oral, q6h, PRN as needed for pain, # 12 tab(s), 0 Refill(s), Sciatica Start Date: 04/11/21 Stop Date: 04/14/21 Status: Ordered [id number] 200 actuat albuterol 0.09 mg/actuat metered dose inhaler (20 sources) beta2-Adrenergic Agonist Start: 08-11-2024 take 2 puff(s) by inhalation every four hours as needed for wheezing albuterol HFA (PROVENTIL HFA, VENTOLIN HFA) 90 mcg/actuation inhaler Inhale 2 Puffs as instructed every 4 hours as needed for wheezing/shortness of breath. 8 g 08/11/2024 Active Start: 07-28-2022 take 2.5 mg by inhal ation three to four times daily as needed for wheezing Albuterol Sulfate 1.25 mg/3 mL solution for nebulization Active 2.5 mg INHALATION 3 to 4 times per day as needed for shortness of breath or wheezing 90 30 6 July 28, 2022 1:00am Start: 04-16-2022 take 2 puff(s) by in halation every four hours as needed for wheezing albuterol HFA (PROVENTIL HFA, VENTOLIN HFA) 90 mcg/actuation inhaler Inhale 2 Puffs as instructed every 4 hours as needed for wheezing/shortness of breath. 18 g 5 04/16/2022 Active Start: 12-01-2021 take 2 puff(s) by in halation every four hours as needed for wheezing albuterol HFA (PROVENTIL HFA, VENTOLIN HFA) 90 mcg/actuation inhaler Inhale 2 Puffs as instructed every 4 hours as needed for wheezing/shortness of breath. 1 Inhaler 5 12/01/2021 Active Start: 06-21-2021 End: 12-01-2021 take 2 puff(s) by inhalation every six hours as needed for wheezing albuterol HFA (PROVENTIL HFA, VENTOLIN HFA) 90 mcg/actuation inhaler Inhale 2 Puffs as instructed every 6 hours as needed for wheezing/shortness of breath. 1 Each 06/21/2021 12/01/2021 Discontinued Start: 05-21-2021 End: 03-18-2024 albuterol (PROVENTIL) 2.5 mg /3 mL (0.083 %) nebulizer solution Indications: Acute bronchitis, unspecified organism Use 3 mL via nebulizer every 4 hours as needed for wheezing/shortness of breath. Use over 5-15minutes. 18 mL 2 05/21/2021 03/18/2024 Discontinued Start: 05-11-2021 take 2 puff(s) by in halation every four hours as needed for wheezing ProAir HFA MDI (90 mcg/inh) inhalation aerosol 2 puff(s), Inhalation, q4h, PRN as needed for wheezing, # 8.5 gram(s), 0 Refill(s), Bronchitis Start Date: 05/11/21 Status: Ordered Start: 05-11-2021 take 2 puff(s) by in halation every four hours as needed for wheezing ProAir HFA MDI (90 mcg/inh) inhalation aerosol 2 puff(s), Inhalation, q4h, PRN as needed for wheezing, # 8.5 gram(s), 0 Refill(s), Bronchitis Start Date: 05/11/21 Status: Ordered Start: 12-23-2020 End: 06-21-2021 take 2 puff(s) by inhalation every four hours as needed albuterol HFA (PROAIR HFA) 90 mcg/actuation inhaler Indications: Wheezing Inhale 2 Puffs as instructed every 4 hours as needed. 8 g 12/23/2020 06/21/2021 Discontinued Start: 05-02-2019 End: 07-28-2022 Albuterol Sulfate 90 mcg/act uation HFA aerosol inhaler Active 1 - 2 NMA INHALATION EVERY 4 HOURS NEEDED as needed for Wheezing 1 July 28, 2022 9:10am Start: 05-02-2019 End: 07-28-2022 take 1 puff(s) by inhalation every four hours as needed Albuterol Sulfate Active 1 - 2 PUFF INHALATION EVERY 4 HOURS NEEDED July 28, 2022 8:10am albuterol (2.5 M G/3ML) 0.083% nebulizer solution USE 1 VIAL IN NEBULIZER EVERY 4 HOURS NEEDED FOR WHEEZING FOR SHORTNESS OF BREATH. USE OVER 5-15 MINUTES Active take 2 puff(s) by mo uth every four hours as needed for wheezing albuterol HFA (Ventolin HFA) 90 mcg/act inhaler INHALE 2 PUFFS BY MOUTH EVERY 4 HOURS NEEDED FOR WHEEZING OR SHORTNESS OF BREATH Active Comment on above: Use 3 mL via nebuliz er every 4 hours as needed for wheezing/shortness of breath. Use over 5-15minutes. Inhale 2 Puffs as in structed every 6 hours as needed for wheezing/shortness of breath. Inhale 2 Puffs as in structed every 4 hours as needed for wheezing/shortness of breath. albuterol MDI (90 mcg/inh) CFC free inhalation aerosol (5 sources) Start: take 1 puff(s) by inhalation once as needed for wheezing albuterol MDI (90 mcg/inh) CFC free inhalation aerosol 1 puff(s), Inhalation, Once, PRN as needed for wheezing, # 18 gram(s), 0 Refill(s) Start Date: 04/11/21 Status: Ordered amoxicillin 875 mg oral tablet (1 source) Penicillin-class Antibacterial Start: End: take 1 tablet by mouth twice daily amoxicillin (AMOXIL) 875 mg tablet Indications: Acute otitis media, right Take 1 tablet by mouth two times a day for 7 days. 14 tablet 03/01/2024 03/08/2024 Active aspirin 81 mg delayed release oral tablet (20 sources) Platelet Aggregation Inhibitor, Nonsteroidal Anti-inflammatory Drug Start: Aspirin (Adult Low Dose Aspirin) 81 mg tablet,delayed release (DR/EC) Active 81 mg PO DAILY May 13, 2023 1:00am atenolol 25 mg oral tablet (20 sources) beta-Adrenergic Sima Start: End: take 1 tablet by mouth at bedtime Atenolol (Tenormin) 25 MG tablet Active 25 mg PO AT BEDTIME April 26, 2018 1:00am heart Comment on above: Take 1 tablet by jamel th once daily. atorvastatin 20 mg oral tablet (20 sources) HMG-CoA Reductase Inhibitor Start: End: take 1 tablet by mouth once daily Atorvastatin 20 mg tablet Active 20 mg PO DAILY 13 05February 29, 2024 10:15am benzonatate 100 mg oral capsule (20 sources) Non-narcotic Antitussive Start: take 2 capsules by mouth three times daily as needed benzonatate (TESSALON PERLE) 100 mg capsule Indications: Subacute cough Take 2 capsules by mouth three times a day as needed. 30 capsule 03/10/2024 Active Start: 03-01-2024 End: 03-18-2024 take 1 capsule by mouth three times daily as needed for cough benzonatate (TESSALON PERLES) 100 mg capsule Indications: Viral URI with cough Take 1 capsule by mouth three times a day as needed for cough. 30 capsule 03/01/2024 03/18/2024 Discontinued Start: 07-01-2021 End: 10-02-2021 take 100-200 mg by mouth every eight hours as needed for cough and cough benzonatate (TESSALON PERLES) 100 mg capsule Indications: Cough Take 1-2 capsules by mouth three times daily as needed. 30 capsule 07/01/2021 10/02/2021 Discontinued Comment on above: Take 1-2 capsules by mouth three times daily as needed. clobetasol propionate 0.5 mg/ml topical cream (11 sources) Corticosteroid Start: clobetasol (TEMOVATE) 0.05 % cream APPLY CREAM TOPICALLY TWICE DAILY TO RASH FOR UP TO 2 WEEKS A MONTH NEEDED 02/22/2024 Active codeine phosphate 2 mg/ml / guaiFENesin 20 mg/ml oral solution (2 sources) Opioid Agonist Start: End: take 1 dose by mouth every six hours as needed for cough codeine-guaifenesi n 10 mg-100 mg/5 mL oral syrup Dose = 10 mL, Oral, q6h, PRN as needed for cough, X 3 day(s), # 120 mL, 0 Refill(s), Bronchitis, 90.9 Start Date: 04/20/22 Stop Date: 04/23/22 Status: Ordered Start: 05-11-2021 End: 05-14-2021 take 1 dose by mouth every six hours as needed for cough codeine-guaifenesin 10 mg-100 mg/5 mL oral syrup Dose = 10 mL, Oral, q6h, PRN as needed for cough, X 3 day(s), # 120 mL, 0 Refill(s), Bronchitis Start Date: 05/11/21 Stop Date: 05/14/21 Status: Ordered Continuous Glucose Sensor (FreeStyle Carli 14 Day Sensor) misc (1 source) Start: 12-01-2023 Continuous Glucose Sensor (FreeStyle Carli 14 Day Sensor) misc USE DIRECTED 12/01/2023 Active diazePAM 5 mg oral tablet (1 source) Benzodiazepine Start: 04-11-2021 End: 04-18-2021 Valium 5 mg oral tablet Dose : 5 mg = 1 tab(s), Oral, BID, PRN as needed for pain, X 7 day(s), # 14 tab(s), 0 Refill(s), 04/18/21 19:17:00 EDT, Sciatica Start Date: 04/11/21 Stop Date: 04/18/21 Status: Ordered diclofenac sodium 75 mg oral delayed release tablet (3 sources) Start: 04-11-2021 diclofenac sod ium 75 mg oral delayed release tablet Dose : 75 mg = 1 tab(s), Oral, BID, # 180 tab(s), 0 Refill(s) Start Date: 04/11/21 Status: Ordered doxycycline monohydrate 100 mg oral tablet (10 sources) Tetracycline-class Drug Start: 10-30-2024 End: 11-06-2024 take 1 tablet by mouth twice daily doxycycline monohydrate 100 mg tablet Indications: Skin infection Take 1 tablet by mouth two times a day for 7 days. 14 tablet 10/30/2024 11/06/2024 Active Start: 09-11-2024 End: 11-13-2024 take 2-3 tablets by mouth twice daily Doxycycline Hyclate 100 mg tablet Discontinued 100 mg PO TWICE A DAY 14 0 September 11, 2024 12:00am November 13, 2024 2:59pm Take medication on an empty stomach with 2-3 crackers and a small amount of water. Do not take with dairy products. Do not eat for 30 minutes after taking medication. Start: 08-11-2024 End: 08-18-2024 take 1 tablet by mouth twice daily doxycycline (VIBRA-TABS) 100 mg tablet Indications: Acute cough Take 1 tablet by mouth two times a day for 7 days. 14 tablet 08/11/2024 08/18/2024 Active Flash Glucose Sensor (Freest yle Carli 14 Day Sensor) kit (20 sources) Start: 11-29-2023 Flash Glucose Sensor (Freestyle Carli 14 Day Sensor) kit Active 0 .Route 1 November 29, 2023 7:47am As directed Start: 11-29-2023 Flash Glucose Sensor (Freestyle Carli 14 Day Sensor) kit Active 0 .Route November 29, 2023 7:47am As directed Start: 08-30-2023 End: 11-29-2023 Flash Glucose Sensor (Freest yle Carli 14 Day Sensor) kit Discontinued 0 .Route 1 August 30, 2023 1:34pm November 29, 2023 7:48am As directed Start: 08-30-2023 End: 11-29-2023 Flash Glucose Sensor (Freest yle Carli 14 Day Sensor) kit Discontinued 0 .Route August 30, 2023 1:34pm November 29, 2023 7:48am As directed Start: 06-03-2023 End: 08-30-2023 Flash Glucose Sensor (Freest yle Carli 14 Day Sensor) kit Discontinued 0 .Route 1 June 03, 2023 9:29am August 30, 2023 1:34pm As directed Start: 06-03-2023 End: 08-30-2023 Flash Glucose Sensor (Freest yle Carli 14 Day Sensor) kit Discontinued 0 .Route June 03, 2023 9:29am August 30, 2023 1:34pm As directed Start: 06-03-2023 Flash Glucose Sensor (Freestyle Carli 14 Day Sensor) kit Active 0 .Route June 03, 2023 8:29am As directed Start: 05-20-2023 End: 06-03-2023 Flash Glucose Sensor (Freest yle Carli 14 Day Sensor) kit Discontinued 0 .Route 1 May 20, 2023 9:05am June 03, 2023 9:30am As directed Start: 05-20-2023 End: 06-03-2023 Flash Glucose Sensor (Freest yle Carli 14 Day Sensor) kit Discontinued 0 .Route 1 May 20, 2023 9:05am June 03, 2023 9:30am As directed Start: 05-20-2023 End: 06-03-2023 Flash Glucose Sensor (Freest yle Carli 14 Day Sensor) kit Discontinued 0 .Route May 20, 2023 8:05am June 03, 2023 8:30am As directed Start: 05-03-2023 End: 05-20-2023 Flash Glucose Sensor (Freest yle Carli 14 Day Sensor) kit Discontinued 0 .Route 1 0 May 03, 2023 4:56pm May 20, 2023 9:05am As directed Start: 05-03-2023 End: 05-20-2023 Flash Glucose Sensor (Freest yle Carli 14 Day Sensor) kit Discontinued 0 .Route May 03, 2023 4:56pm May 20, 2023 9:05am As directed Start: 05-03-2023 End: 05-20-2023 Flash Glucose Sensor (Freest yle Carli 14 Day Sensor) kit Discontinued 0 .Route May 03, 2023 3:56pm May 20, 2023 8:05am As directed Start: 05-03-2023 Flash Glucose Sensor (Freestyle Carli 14 Day Sensor) kit Active 0 .Route 1 May 03, 2023 3:56pm As directed Start: 05-03-2023 End: 05-03-2023 Flash Glucose Sensor (Freest yle Carli 14 Day Sensor) kit Discontinued 0 .Route May 03, 2023 1:00am May 03, 2023 4:57pm As directed Start: 05-03-2023 End: 05-03-2023 Flash Glucose Sensor (Freest yle Carli 14 Day Sensor) kit Discontinued 0 .Route May 03, 2023 12:00am May 03, 2023 3:57pm As directed 30 actuat fluticasone furoate 0.2 mg/actuat / vilanterol 0.025 mg/actuat dry powder inhaler (17 sources) Corticosteroid, beta2-Adrenergic Agonist Start: 05-31-2024 End: 12-08-2024 Fluticasone Furoate-Vilanterol (Breo Ellipta) 200-25 mcg/dose blister with device Active 1 NMA INHALATION Q24H 60 11 December 08, 2024 11:48am Start: 09-15-2021 End: 09-17-2021 take 1 dose by inhalation once daily fluticasone-vilanterol (BREO ELLIPTA) 100-25 mcg/dose inhaler Inhale 1 Inhalation as instructed once daily. 1 Each 5 09/15/2021 09/17/2021 Discontinued (Not on Formulary) Fluticasone Furo ate-Vilanterol (Breo Ellipta) 200-25 MCG/ACT aerosol powder Inhale 1 Inhalation Daily in the Morning Active Comment on above: Inhale 1 Inhalation as instructed once daily. Fluticasone Propion-Salmeterol (Advair Hfa) 115-21 mcg/actuation HFA aerosol inhaler (6 sources) Start: take 1 puff(s) by inhalation twice daily Fluticasone Propion-Salmeterol (Advair Hfa) 115-21 mcg/actuation HFA aerosol inhaler Active PUFF INHALATION TWICE A DAY August 18, 2022 1:00am Start: 08-18-2022 take 1 puff(s) by in halation twice daily Fluticasone Propion-Salmeterol (Advair Hfa) 115-21 mcg/actuation HFA aerosol inhaler Active PUFF INHALATION TWICE A DAY August 18, 2022 12:00am FREESTYLE CARLI 14 DAY SENSOR kit (11 sources) Start: 12-01-2023 FREESTYLE CARLI 14 DAY SENSOR kit as directed. 12/01/2023 Active hydrOXYzine hydrochloride 25 mg oral tablet (20 sources) Antihistamine Start: 05-02-2019 End: 03-18-2024 take 1 tablet by mouth every six hours as needed for anxiety Hydroxyzine Hcl 25 MG tablet Active 25 mg PO EVERY 6 HOURS NEEDED as needed for Anxiety May 02, 2019 1:00am Comment on above: Take 1 tablet by jamel th every 6 hours as needed for Anxiety. Inhalational Spacing Device (1 source) Start: 08-11-2024 End: 08-11-2024 Inhalational Spacing Device 1 Device one time only for 1 dose. 1 Each 08/11/2024 08/11/2024 Active Ipratropium (14 sources) Anticholinergic Start: 07-28-2022 take 1 spray(s) nasal route in the morning Ipratropium [place] Active 2 SPRAY INTRANASAL 2 to 3 times per day July 28, 2022 1:00am administer into each nostril before bed, and in AM for nasal congestions and drip symptoms. Start: 07-28-2022 take 1 spray(s) nasa l route in the morning Ipratropium [place] Active 2 SPRAY INTRANASAL 2 to 3 times per day July 28, 2022 12:00am administer into each nostril before bed, and in AM for nasal congestions and drip symptoms. Ipratropium [place] 21 mcg ( 0.03 %) spray,non-aerosol (8 sources) Start: 07-28-2022 Ipratropium Br omide 21 mcg (0.03 %) spray,non-aerosol Active 2 NMA INTRANASAL 2 to 3 times per day as needed for allergy symptoms 10 09July 28, 2022 1:00am administer into each nostril before bed, and in AM for nasal congestions and drip symptoms. Start: 07-28-2022 Ipratropium Br omide 21 mcg (0.03 %) spray,non-aerosol Active 2 NMA INTRANASAL 2 to 3 times per day as needed for allergy symptoms July 28, 2022 1:00am administer into each nostril before bed, and in AM for nasal congestions and drip symptoms. MULTIVITAMIN ORAL (20 sources) MULTIVITAMIN ORA L Take by mouth. Active MULTIVITAMIN ORA L Take by mouth. 0 Active Comment on above: Take by mouth. mupirocin 0.02 mg/mg topical ointment (2 sources) RNA Synthetase Inhibitor Antibacterial Start: 025 End: 025 mupirocin (BACTROBAN) 2 % ointment Indications: Skin infection Apply to affected area three times a day for 10 days. 22 g 10/30/2024 11/09/2024 Active Nebulizers ([employer] Essence Nebulizer) misc (1 source) Nebulizers ([employer] Essence Nebulizer) misc USE DIRECTED Active OZEMPIC 0.25 mg or 0.5 mg (2 mg/3 mL) pen (11 sources) Start: OZEMPIC 0.25 mg or 0.5 mg (2 mg/3 mL) pen INJECT 0.25 MG SUBCUTANEOUSLY ONCE EVERY WEEK 02/16/2024 Active Ozempic, 0.25 or 0.5 MG/DOSE, 2 MG/3ML solution pen-injector (1 source) Start: inject 0.25 mg by subcutaneous injection every week Ozempic, 0.25 or 0.5 MG/DOSE, 2 MG/3ML solution pen-injector INJECT 0.25 MG SUBCUTANEOUSLY ONCE EVERY WEEK 02/16/2024 Active perflutren lipid microspheres 1.3 mL in NaCl (PF) 0.9% 10 mL injection (DEFINITY) (12 sources) Start: End: perflutren lipid microspheres 1.3 mL in NaCl (PF) 0.9% 10 mL injection (DEFINITY) predniSONE 20 mg oral tablet (20 sources) Start: End: take 2 tablets by mouth once daily predniSONE (DELTASONE) 20 mg tablet Indications: Subacute cough , History of asthma Take 2 tablets by mouth once daily for 5 days. 10 tablet 03/10/2024 03/15/2024 Active Start: 08-20-2022 End: 01-21-2023 take 2 tablets by mouth once daily Prednisone 20 mg tablet Discontinued 40 mg PO DAILY August 20, 2022 1:00am January 21, 2023 8:20am Start: 08-20-2022 End: 01-21-2023 take 40 mg by mouth once daily Prednisone Discontinued 40 MG PO DAILY August 20, 2022 12:00am January 21, 2023 7:20am Start: 04-23-2022 End: 06-04-2022 take 40 mg by mouth once daily Prednisone Discontinued 40 MG PO DAILY April 23, 2022 12:00am June 04, 2022 2:36pm Start: 04-17-2022 End: 06-04-2022 take 2 tablets by mouth once daily Prednisone 20 mg tablet Discontinued 40 mg PO DAILY April 23, 2022 1:00am June 04, 2022 3:36pm Start: 03-08-2022 take 50 mg by mouth once daily Prednisone Active 50 MG PO DAILY 05 11March 08, 2022 12:00am Start: 05-20-2021 End: 05-24-2021 predniSONE 20 mg oral tablet Dose : 60 mg = 3 tab(s), Oral, qDay, X 4 day(s), # 12 tab(s), 0 Refill(s), 05/24/21 12:39:00 EST, Cough Dyspnea Start Date: 05/20/21 Stop Date: 05/24/21 Status: Ordered Start: 05-11-2021 End: 05-16-2021 predniSONE 20 mg oral tablet Dose : 40 mg = 2 tab(s), Oral, Daily, # 10 tab(s), 0 Refill(s), Bronchitis Start Date: 05/11/21 Stop Date: 05/16/21 Status: Ordered Start: 04-11-2021 End: 04-16-2021 predniSONE 20 mg oral tablet Dose : 20 mg = 1 tab(s), Oral, Daily, # 5 tab(s), 0 Refill(s), Sciatica Start Date: 04/11/21 Stop Date: 04/16/21 Status: Ordered Comment on above: Take 2 tablets by [facility] once daily for 5 days. Reli On [place] glucometer (16 sources) Start: 02-25-2023 Reli On [place] glucometer Active 0 .Route [facility] February 25, 2023 12:00am Start: 02-25-2023 Reli On [place] glucometer Active 0 .Route .[facility] February 24, 2023 11:00pm Start: 02-25-2023 Reli On [place] um glucometer Active 0 .ROUTE .[facility] February 25, 2023 12:00am 125 ml sodium chloride 9 mg/ml prefilled syringe (12 sources) Start: 03-30-2022 End: 06-29-2023 sodium chloride 0.9 % (flush) 10 mL (BD POSIFLUSH) Spacer/Aero-Holding Chambers (Compact Space Chamber) device (1 source) Spacer/Aero-Hold i ng Chambers (Compact Space Chamber) device USE DIRECTED Active traMADol hydrochloride 50 mg oral tablet (1 source) Opioid Agonist Start: 02-05-2023 End: 02-07-2023 take 1 tablet by mouth every eight hours as needed traMADol 50 mg oral tablet ; 1 tab(s) orally every 8 hours, As Needed -for pain Quantity: 9 Refills: 0 Ordered: 05-Feb-2023 Zachery Latif Start: 05-Feb-2023 End: 07-Feb-2023 Generic Substitution Allowed Comments: Caution [email or web address] law prohibits the transfer of this drug to any person other than the person for whom it was prescribed.May cause drowsiness. Alcohol may intensify this effect. Use care when operating dangerous machinery.Obtain medical advice before taking any non-prescription drugs as some may affect the action of this medication. Comment on above: Caution federal law prohibits the transfer of this drug to any person other than the person for whom it was prescribed.May cause drowsiness. Alcohol may intensify this effect. Use care when operating dangerous machinery.Obtain medical advice before taking any non-prescription drugs as some may affect the action of this medication. Completed/Discontinued Medications Medication Drug Class(es) Dates Sig (Normalized) Sig (Original) amoxicillin 500 mg / clavulanate 125 mg oral tablet (9 sources) Penicillin-class Antibacterial Start: 05-17-2023 End: 05-27-2023 Amoxicillin-Pot Clavulanate (Augmentin) 500-125 mg tablet Discontinued 1 {tbl} PO TWICE A DAY 14 0 May 17, 2023 1:00am May 27, 2023 9:07am azithromycin 250 mg oral tablet (20 sources) Macrolide Antimicrobial Start: 04-27-2022 End: 07-28-2022 Azithromycin 250 mg tablet Discontinued 0 PO .COMPLEX 6 0 April 27, 2022 1:00am July 28, 2022 7:59am For 250 mg dose pack: take 500 mg today (day 1), then 250 mg for 4 days (days 2-5) Start: 04-27-2022 End: 07-28-2022 Azithromycin Discontinued 0 PO .COMPLEX 6 April 27, 2022 12:00am July 28, 2022 6:59am For 250 mg dose pack: take 500 mg today (day 1), then 250 mg for 4 days (days 2-5) Start: 05-11-2021 End: 05-16-2021 take 1 tablet by mouth once daily Zithromax Z-Mandeep 250 mg oral tablet 1 dose, Oral, Daily, # 6 tab(s), 0 Refill(s), Bronchitis Start Date: 05/11/21 Stop Date: 05/16/21 Status: Ordered Budesonide-Formoterol (20 sources) Corticosteroid, beta2-Adrenergic Agonist Start: 08-04-2023 End: 05-31-2024 Budesonide-Formoterol (Symbicort) 160-4.5 mcg/actuation HFA aerosol inhaler Discontinued 2 NMA INHALATION TWICE A DAY 1 August 04, 2023 9:25am May 31, 2024 10:01am administer with spacer, rinse mouth after each use Start: 08-04-2023 End: 05-31-2024 Budesonide-Formoterol (Symbi mark) 160-4.5 mcg/actuation HFA aerosol inhaler Discontinued 2 NMA INHALATION TWICE A DAY August 04, 2023 9:25am May 31, 2024 10:01am administer with spacer, rinse mouth after each use Start: 12-28-2022 End: 08-04-2023 Budesonide-Formoterol (Symbi mark) 160-4.5 mcg/actuation HFA aerosol inhaler Discontinued 2 NMA INHALATION TWICE A DAY 1 December 28, 2022 12:00am August 04, 2023 9:26am administer with spacer, rinse mouth after each use Start: 12-28-2022 End: 08-04-2023 Budesonide-Formoterol (Symbi mark) 160-4.5 mcg/actuation HFA aerosol inhaler Discontinued 2 NMA INHALATION TWICE A DAY December 28, 2022 12:00am August 04, 2023 9:26am administer with spacer, rinse mouth after each use Start: 12-28-2022 take 1 puff(s) by [facility] twice daily Budesonide-Formoterol (Symbicort) 160-4.5 mcg/actuation HFA aerosol inhaler Active 2 PUFF INHALATION TWICE A DAY December 27, 2022 11:00pm administer with spacer, rinse mouth after each use Start: 12-28-2022 take 1 puff(s) by [facility] twice daily Budesonide-Formoterol (Symbicort) 160-4.5 mcg/actuation HFA aerosol inhaler Active 2 PUFF INHALATION TWICE A DAY December 28, 2022 12:00am administer with spacer, rinse mouth after each use End: 07-20-2024 take 2 puff(s) by inhalation in the morning budesonide-formoterol (Symbicort) 160-4.5 MCG/ACT inhaler Inhale 2 puffs in the morning and 2 puffs in the evening. 07/20/2024 Discontinued take 2 puff(s) by in halation twice daily budesonide-formoterol (SYMBICORT) 160-4.5 mcg/actuation inhaler Inhale 2 Puffs as instructed two times a day. Active calcium glycerophosphate 65 mg oral tablet (1 source) Start: 01-25-2015 End: 08-26-2020 Calcium Glycerophosphate (PRELIEF) 65 mg tab Take by mouth as needed. 0 01/25/2015 08/26/2020 Discontinued (Course of therapy completed) 24 hr carvedilol phosphate 40 mg extended release oral capsule (20 sources) alpha-Adrenergic Sima, beta-Adrenergic Sima Start: 04-30-2014 End: 10-04-2015 take 40 mg by mouth once daily Carvedilol Phosphate (Coreg Cr) 40 MG Cpmp.24hr Discontinued 40 mg PO DAILY April 30, 2014 1:00am October 04, 2015 2:49pm ciprofloxacin 500 mg oral tablet (12 sources) Quinolone Antimicrobial Start: 03-31-2023 End: 05-13-2023 take 1 tablet by mouth twice daily Ciprofloxacin Hcl 500 mg tablet Discontinued 500 mg PO TWICE A DAY 14 0 March 31, 2023 12:00am May 13, 2023 7:39am cyclobenzaprine hydrochloride 10 mg oral tablet (20 sources) Muscle Relaxant Start: 03-08-2022 End: 07-28-2022 take 1 tablet by mouth three times daily as needed for muscle spasms Cyclobenzaprine 10 mg tablet Discontinued 10 mg PO THREE TIMES A DAY as needed for muscle spasm 0 March 08, 2022 12:00am July 28, 2022 8:02am Start: 09-26-2021 End: 10-01-2021 take 1 tablet by mouth three times daily as needed for muscle spasms Cyclobenzaprine 10 mg tablet Discontinued 10 mg PO THREE TIMES A DAY as needed for muscle spasm 20 5 0 September 26, 2021 5:41pm September 30, 2021 12:00am October 01, 2021 12:07am Start: 08-25-2021 End: 08-30-2021 take 1 tablet by mouth three times daily as needed for muscle spasms Cyclobenzaprine 10 mg tablet Discontinued 10 mg PO THREE TIMES A DAY as needed for muscle spasm 20 5 0 August 25, 2021 12:00am August 29, 2021 12:00am August 30, 2021 12:04am diclofenac sodium 75 mg delayed release oral tablet (20 sources) Nonsteroidal Anti-inflammatory Drug Start: 04-26-2018 End: 03-18-2024 take 1 tablet by mouth twice daily as needed for pain Diclofenac Sodium 75 mg tablet,delayed release (DR/EC) Discontinued 75 mg PO TWICE DAILY NEEDED as needed for Pain February 10, 2023 1:12pm February 18, 2023 9:27am Comment on above: [facility]/inflammation. Take with food. dicyclomine hydrochloride 10 mg oral capsule (20 sources) Anticholinergic Start: 02-21-2021 End: 03-18-2024 take 1 capsule by mouth three times daily as needed dicyclomine (BENTYL) 10 mg capsule Indications: Bilateral upper abdominal pain Take 1 capsule by mouth three times daily as needed. 30 capsule 2 02/21/2021 03/18/2024 Discontinued Comment on above: Take 1 capsule by mo [facility] three times daily as needed. empagliflozin 10 mg oral tablet (9 sources) Sodium-Glucose Cotransporter 2 Inhibitor Start: 07-13-2023 End: 01-27-2024 take 1 tablet by mouth once daily Empagliflozin (Jardiance) 10 mg tablet Discontinued 10 mg PO DAILY 30 July 13, 2023 1:00am January 27, 2024 8:47am On Hold: None Fluticasone Propion-Salmeterol (20 sources) Corticosteroid, beta2-Adrenergic Agonist Start: 08-18-2022 End: 12-28-2022 Fluticasone Propion-Salmeterol (Advair Hfa) 115-21 mcg/actuation HFA aerosol inhaler Discontinued NMA INHALATION TWICE A DAY August 18, 2022 1:00am December 28, 2022 8:48am sob Start: 08-18-2022 End: 12-28-2022 Fluticasone Propion-Salmeter ol (Advair Hfa) 115-21 mcg/actuation HFA aerosol inhaler Discontinued NMA INHALATION TWICE A DAY August 18, 2022 1:00am December 28, 2022 8:48am Start: 08-18-2022 End: 12-28-2022 take 1 puff(s) by inhalation twice daily Fluticasone Propion-Salmeterol (Advair Hfa) 115-21 mcg/actuation HFA aerosol inhaler Discontinued PUFF INHALATION TWICE A DAY August 18, 2022 12:00am December 28, 2022 7:48am Start: 08-18-2022 End: 12-28-2022 take 1 puff(s) by inhalation twice daily Fluticasone Propion-Salmeterol (Advair Hfa) 115-21 mcg/actuation HFA aerosol inhaler Discontinued PUFF INHALATION TWICE A DAY August 18, 2022 1:00am December 28, 2022 8:48am Start: 10-29-2021 take 1 puff(s) by in halation twice daily Fluticasone Propion-Salmeterol (Advair Hfa) 115-21 mcg/actuation Hfa Aerosol Inhaler Active 2 PUFF INHALATION TWICE A DAY October 29, 2021 12:39pm Start: 10-29-2021 End: 07-28-2022 Fluticasone Propion-Salmeter ol (Advair Hfa) 115-21 mcg/actuation Hfa Aerosol Inhaler Discontinued 2 NMA INHALATION TWICE A DAY October 29, 2021 12:00am July 28, 2022 9:09am Start: 10-29-2021 End: 07-28-2022 take 1 puff(s) by inhalation twice daily Fluticasone Propion-Salmeterol (Advair Hfa) 115-21 mcg/actuation Hfa Aerosol Inhaler Discontinued 2 PUFF INHALATION TWICE A DAY October 29, 2021 12:00am July 28, 2022 9:09am Start: 10-29-2021 End: 07-28-2022 take 1 puff(s) by inhalation twice daily Fluticasone Propion-Salmeterol (Advair Hfa) 115-21 mcg/actuation Hfa Aerosol Inhaler Discontinued 2 PUFF INHALATION TWICE A DAY October 28, 2021 11:00pm July 28, 2022 8:09am Start: 10-29-2021 take 1 puff(s) by in halation twice daily Fluticasone Propion-Salmeterol (Advair Hfa) 115-21 mcg/actuation Hfa Aerosol Inhaler Active 2 PUFF INHALATION TWICE A DAY October 28, 2021 11:00pm Start: 10-29-2021 take 1 puff(s) by in halation twice daily Fluticasone Propion-Salmeterol (Advair Hfa) 115-21 mcg/actuation Hfa Aerosol Inhaler Active 2 PUFF INHALATION TWICE A DAY October 29, 2021 12:00am Start: 09-17-2021 End: 03-18-2024 take 2 puff(s) by inhalation twice daily fluticasone-salmeterol HFA (ADVAIR HFA) 115-21 mcg/actuation inhaler Inhale 2 Puffs as instructed twice daily. 1 Inhaler 5 09/17/2021 03/18/2024 Discontinued Start: 09-17-2021 take 2 puff(s) by in halation twice daily fluticasone-salmeterol HFA (ADVAIR HFA) 115-21 mcg/actuation inhaler Inhale 2 Puffs as instructed twice daily. 1 Inhaler 5 09/17/2021 Active Comment on above: Inhale 2 Puffs as in structed twice daily. furosemide 20 mg oral tablet (20 sources) Loop Diuretic Start: 3 End: 5 take 1 tablet by mouth once daily Furosemide 20 mg tablet Discontinued 20 mg PO DAILY 90 3 November 09, 2023 1:20pm October 30, 2024 12:55pm gabapentin 300 mg oral capsule (20 sources) Anti-epileptic Agent Start: 9 End: 4 take 1 capsule by mouth once daily at bedtime gabapentin (NEURONTIN) 300 mg capsule Indications: Neuropathy Take 1 capsule by mouth daily at bedtime for 181 days. 30 capsule 5 12/11/2019 08/29/2020 Discontinued Comment on above: Take 1 capsule by [facility] daily at bedtime for 181 days. lactulose 667 mg/ml oral solution (20 sources) Osmotic Laxative Start: End: take 30 mL by mouth once daily lactulose (DUPHALAC, CONSTULOSE) 20 gram/30 mL solution Indications: Irritable bowel syndrome with constipation Take 30 mL by mouth once daily. 473 mL 1 12/02/2020 03/18/2024 Discontinued Comment on above: Take 30 mL by mouth once daily. linaclotide 0.145 mg oral capsule (20 sources) Guanylate Cyclase-C Agonist Start: 1 Linzess 290 mcg oral capsule Dose : 290 mcg = 1 cap(s), Oral, qDay, # 30 cap(s), 0 Refill(s) Start Date: 04/11/21 Status: Ordered Start: 03-13-2021 End: 03-18-2024 take 1 capsule by mouth once daily, then take 6 capsules by mouth in the morning linaCLOtide (LINZESS) 290 mcg capsule Indications: Irritable bowel syndrome with constipation Take 1 capsule by mouth DAILY (6 AM). 30 capsule 2 03/13/2021 03/18/2024 Discontinued Start: 12-19-2020 End: 03-18-2024 take 1 capsule by mouth once daily, then take 6 capsules by mouth in the morning linaclotide (LINZESS) 145 mcg capsule Indications: Irritable bowel syndrome with constipation Take 1 capsule by mouth DAILY (6 AM). 30 capsule 2 12/22/2021 03/18/2024 Discontinued Comment on above: Take 1 capsule by mo [facility] DAILY (6 AM). lisinopril 2.5 mg oral tablet (20 sources) Angiotensin Converting Enzyme Inhibitor Start: 2015 End: 2023 take 1 tablet by mouth at bedtime Lisinopril 2.5 mg tablet Discontinued 2.5 mg PO AT BEDTIME 90 2 February 18, 2023 10:22am November 09, 2023 1:20pm BP Comment on above: Take 1 tablet by jamel once daily. meloxicam 7.5 mg oral tablet (20 sources) Nonsteroidal Anti-inflammatory Drug Start: 2022 End: 2022 take 1 tablet by mouth at lunch Meloxicam 7.5 mg tablet Discontinued 7.5 mg PO WITH LUNCH August 18, 2022 1:00am February 18, 2023 9:26am pain metFORMIN hydrochloride 500 mg oral tablet (20 sources) Biguanide Start: 2022 End: 2023 take 1 tablet by mouth twice daily Metformin 500 mg tablet Discontinued 500 mg PO TWICE A DAY 180 March 08, 2023 11:54am October 21, 2023 8:14am On Hold: Order Changed methylPREDNISolone 4 mg oral tablet (20 sources) Corticosteroid Start: 2021 End: 2021 take 1 tablet by mouth once Methylprednisolone (Medrol (Mandeep)) 4 mg tablets,dose pack Discontinued 4 mg PO per package directions 21 5 0 August 25, 2021 12:00am August 29, 2021 12:00am August 30, 2021 12:04am omeprazole 40 mg delayed release oral capsule (20 sources) Proton Pump Inhibitor Start: 2020 End: 2023 take 1 capsule by mouth twice daily Omeprazole 40 mg capsule,delayed release(DR/EC) Discontinued 40 mg PO TWICE A DAY 180 January 20, 2023 10:07am May 05, 2024 11:39am Gerd Start: 03-13-2021 End: 06-24-2021 take 1 capsule by mouth once daily omeprazole (PRILOSEC) 40 mg capsule Indications: GERD without esophagitis Take 1 capsule by mouth once daily 30 capsule 06/24/2021 Active Start: 03-11-2020 End: 10-28-2020 take 1 capsule by mouth once daily omeprazole (PRILOSEC) 40 mg capsule Take 1 capsule by mouth once daily. 30 capsule 03/11/2020 10/28/2020 Discontinued Comment on above: Take 1 capsule by mo [facility] once daily Take 1 capsule by mo [facility] twice daily. polyethylene glycol 3350 77021 mg powder for oral solution (1 source) Osmotic Laxative Start: 0 End: 1 polyethylene glycol 3350 (MIRALAX) 17 gram/dose powder Take 17 g by mouth once daily. 235 g 3 01/30/2020 08/26/2020 Discontinued (Course of therapy completed) potassium chloride 10 meq extended release oral tablet (20 sources) Start: 3 End: 4 take 1 tablet by mouth once daily Potassium Chloride 10 mEq tablet extended release Discontinued 10 meq PO DAILY 90 November 09, 2023 1:20pm June 02, 2024 1:26pm take 1 tablet by mouth twice [place] potassium chloride (K-TAB) 10 mEq tablet Take 10 mEq by mouth two times a day. Active Semaglutide (20 sources) Start: 08-21-2024 End: 12-07-2024 Semaglutide (Ozempic) 0.25 m g or 0.5 mg (2 mg/3 mL) pen injector Discontinued 0.5 mg SC EVERY WEEK 3 August 21, 2024 7:59am December 07, 2024 8:01am Once weekly for 4 weeks. Start: 08-21-2024 End: 12-07-2024 Semaglutide (Ozempic) 0.25 m g or 0.5 mg (2 mg/3 mL) pen injector Discontinued 0.5 mg SC EVERY WEEK August 21, 2024 7:59am December 07, 2024 8:01am Once weekly for 4 weeks. Start: 08-21-2024 Semaglutide (O zempic) 0.25 mg or 0.5 mg (2 mg/3 mL) pen injector Active 0.5 mg SC EVERY WEEK August 21, 2024 7:59am Once weekly for 4 weeks. Start: 08-23-2023 End: 08-21-2024 Semaglutide (Ozempic) 0.25 m g or 0.5 mg (2 mg/3 mL) pen injector Discontinued 0.25 mg SC EVERY WEEK 3 August 23, 2023 10:44am August 21, 2024 7:59am Once weekly for 4 weeks. Start: 08-23-2023 End: 08-21-2024 Semaglutide (Ozempic) 0.25 m g or 0.5 mg (2 mg/3 mL) pen injector Discontinued 0.25 mg SC EVERY WEEK August 23, 2023 10:44am August 21, 2024 7:59am Once weekly for 4 weeks. Start: 07-23-2023 End: 08-23-2023 Semaglutide (Ozempic) 0.25 m g or 0.5 mg (2 mg/3 mL) pen injector Discontinued 0.25 mg SC EVERY WEEK 3 July 23, 2023 1:00am August 23, 2023 10:44am Once weekly for 4 weeks. Start: 07-23-2023 End: 08-23-2023 Semaglutide (Ozempic) 0.25 m g or 0.5 mg (2 mg/3 mL) pen injector Discontinued 0.25 mg SC EVERY WEEK 3 July 23, 2023 1:00am August 23, 2023 10:44am Once weekly for 4 weeks. sulfamethoxazole 800 mg / trimethoprim 160 mg oral tablet (8 sources) Dihydrofolate Reductase Inhibitor Antibacterial, Sulfonamide Antimicrobial Start: 03-18-2024 End: 05-31-2024 Sulfamethoxazole-Trimethopri m (Bactrim Ds) 800-160 mg tablet Discontinued 1 {tbl} PO TWICE A DAY 14 7 0 March 18, 2024 12:00am May 31, 2024 9:16am tiZANidine 4 mg oral tablet (20 sources) Central alpha-2 Adrenergic Agonist Start: 08-18-2022 End: 02-18-2023 take 1 tablet by mouth at bedtime Tizanidine 4 mg tablet Discontinued 4 mg PO AT BEDTIME August 18, 2022 1:00am February 18, 2023 9:26am pain 24 hr venlafaxine 150 mg extended release oral capsule (20 sources) Serotonin and Norepinephrine Reuptake Inhibitor Start: 06-04-2022 End: 09-29-2023 take 1 tablet by mouth every twenty-fo ur hours at bedtime Venlafaxine 150 mg tablet extended release 24hr Discontinued 150 mg PO AT BEDTIME 90 3 September 29, 2023 7:50am September 29, 2023 9:46am mood Start: 06-03-2021 End: 10-04-2024 take 1 capsule by mouth once daily Venlafaxine 150 mg capsule,extended release 24hr Discontinued 150 mg PO DAILY 90 3 September 29, 2023 12:00am October 04, 2024 9:34am Start: 04-11-2021 venlafaxine 75 mg oral capsule, extended release Dose : 75 mg = 1 cap(s), Oral, qDay, # 30 cap(s), 0 Refill(s) Start Date: 04/11/21 Status: Ordered Start: 04-11-2021 venlafaxine 75 mg oral capsule, extended release Dose : 75 mg = 1 cap(s), Oral, qDay, # 30 cap(s), 0 Refill(s) Start Date: 04/11/21 Status: Ordered Start: 03-06-2021 End: 04-09-2021 take 1 capsule by mouth once daily venlafaxine ER (EFFEXOR XR) 75 mg 24 hr capsule Indications: Panic attack , Panic attack as reaction to stress Take 1 capsule by mouth once daily 30 capsule 03/06/2021 04/09/2021 Discontinued Start: 03-22-2020 End: 07-03-2020 take 1 capsule by mouth once daily venlafaxine ER (EFFEXOR XR) 75 mg 24 hr capsule Indications: Panic attack , Panic attack as reaction to stress Take 1 capsule by mouth once daily. 30 capsule 2 03/22/2020 07/03/2020 Discontinued Start: 05-02-2019 End: 06-04-2022 take 1 tablet by mouth once daily Venlafaxine 37.5 MG tablet Discontinued 37.5 mg PO DAILY May 02, 2019 1:00am June 04, 2022 3:35pm Comment on above: Take 1 capsule by mo [facility] once daily. Problems Active Problems Problem Classification Problem Date Documented Date Episodic/Chronic Abdominal pain (20 sources) Right upper quadrant pain; Translations: [Right upper quadrant pain] Onset: 1 10-29-2020 Episodic Acute bronchitis (20 sources) Acute viral bronchitis; Translations: [Acute bronchitis due to other specified organisms] 05-01-2022 Episodic Administrative/social admission (20 sources) Patient encounter status; Translations: [Persons encountering health services in other specified circumstances] Onset: 1 Resolved: 1 06-04-2022 Episodic Anxiety disorders (20 sources) Panic attack; Translations: [Panic disorder [episodic paroxysmal anxiety]] Chronic Asthma (20 sources) Cough variant asthma; Translations: [Cough variant asthma] Onset: 2 Chronic Comment on above: Assessment and Plan( 1) Asthma with status asthmaticus, failed outpatient treatment. Remains uncontrolled since an exacerbation since 12 August. She required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 By: #### L 503.0106, L100.0100, L501.5200, L501.9520, L500.4050, L501.9985, L506.1001, L500.4100 ####[facility] [address] [place], [address] Urea nitrogen [Mass/Vol] 11 mg/dL Normal 4-19 [facility] Comment on above: Performed By: #### L 503.0106, L100.0100, L501.5200, L501.9520, L500.4050, L501.9985, L506.1001, L500.4100 ####[facility] [address] [place], [address] Eosinophil percentageOrdered By: Bhavana Rodríguez on 12-07-2024 Eosinophils/100 WBC (Bld) 2.6 % 0-5 [facility] Erythrocyte distribution wid th ratioOrdered By: Bhavana Rodríguez on 12-07-2024 Erythrocyte distribution width (RBC) [Ratio] 14.6 % 11.6-14.6 [facility] Erythrocyte distribution wid th standard deviationOrdered By: Bhavanajerrica Rodríguez on 12-07-2024 Erythrocyte distribution width (RBC) [Ratio] 43.5 fl 35.1-43.9 [facility] Glomerular filtration rate ( GFR) estimation/1.73 sq m using serum, plasma, or whole bOrdered By: Bhavanajerrica Rodríguez on 12-07-2024 GFR/1.73 sq M.predicted among non-blacks MDRD (S/P/Bld) [Vol rate/Area] 80 mL/min/{1.73_m2} >60 [facility] Comment on above: mL/min/1.73m2 CKD-EP I Creatinine Equation (2020) Hematocrit Auto (Bld) [Volum e fraction]Ordered By: Bhavana Rodríguez on 12-07-2024 Hematocrit (Bld) [Volume fraction] 39.2 % 37-47 [facility] Hemoglobin A1con 12-07-2024 HbA1c (Bld) [Mass fraction] 6.2 % High <=5.6 [facility] Comment on above: Result Comment: Norm al < 5.7 % Prediabetic 5.7 - 6.4 % Diabetic >or= 6.5 % Please note range changes. Performed By: #### L 503.0106, L100.0100, L501.5200, L501.9520, L500.4050, L501.9985, L506.1001, L500.4100 ####[facility] [address] [place], [address] Hemoglobin A1c percentageOrd ered By: Bhavana Rodríguez on 12-07-2024 HbA1c (Bld) [Mass fraction] 6.2 % High <5.7 [facility] Comment on above: Normal < 5.7 % Predi abetic 5.7 - 6.4 % Diabetic >or= 6.5 % Please note range changes. Hemoglobin measurementOrdere d By: Bhavana Rodríguez on 12-07-2024 Hemoglobin (Bld) [Mass/Vol] 12.3 g/dL 12.0-15.0 [facility] Immature granulocytes/100 WB C Auto (Bld)Ordered By: Bhavana Rodríguez on 12-07-2024 Immature granulocytes/100 WBC (Bld) 0.400 % 0.0-0.9 [facility] Comment on above: IG% - Immature Granu locytes (promyelocytes, myelocytes and metamyelocytes) > 1% indicates that a LEFT SHIFT is Present. LDL calc ser/plasOrdered By: Bhavana Rodríguez on 12-07-2024 Cholesterol in LDL [Mass/Vol] 103 mg/dL [facility] Comment on above: Pocfhbqejf=113-993 m g/dL & Higher Uyxo=774 mg/dL or greater Laboratory - Chemistry and C hemistry - challengeOrdered By: Bhavana Rodríguez on 12-07-2024 AST [Catalytic activity/Vol] 19 U/L <32 [facility] Lipid Profileon 12-07-2024 CHOL:HDL 3.53 Normal [facility] Comment on above: Performed By: #### L 503.0106, L100.0100, L501.5200, L501.9520, L500.4050, L501.9985, L506.1001, L500.4100 ####[facility] [address] [place], [place], [address] Cholesterol [Mass/Vol] 178 mg/dL Normal <=200 [facility] Comment on above: Result Comment: Chol esterol level, Desirable <200 mg/dL Borderline high cholesterol 200-239 mg/dL High cholesterol >=240 mg/dL Recommendations of the NCEP Adult Treatment Panel for the following risk-cutoff thresholds for the [place] Prydeinig population. Performed By: #### L 503.0106, L100.0100, L501.5200, L501.9520, L500.4050, L501.9985, L506.1001, L500.4100 ####[facility] [address] [place], [address] Cholesterol in HDL [Mass/Vol] 50 mg/dL Normal [facility] Comment on above: Result Comment: Paulette onal Cholesterol Education Program (NCEP) guidelines: <40 mg/dL: Low HDL-cholesterol (major risk factor for CHD) >= 60 mg/dL: High HDL-cholesterol (negative risk factor for CHD) HDL-cholesterol is affected by a number of factors, e.g. smoking, exercise, hormones, sex and age. Performed By: #### L 503.0106, L100.0100, L501.5200, L501.9520, L500.4050, L501.9985, L506.1001, L500.4100 ####[facility] [address] [place], [address] Cholesterol in LDL [Mass/Vol] 103 mg/dL Normal [facility] Comment on above: Result Comment: Bord prnquh=258-745 mg/dL Higher Corp=893 mg/dL or greater Performed By: #### L 503.0106, L100.0100, L501.5200, L501.9520, L500.4050, L501.9985, L506.1001, L500.4100 ####[facility] [address] [place], [address] Cholesterol in VLDL [Mass/Vol] 25 mg/dL Normal 5-40 [facility] Comment on above: Performed By: #### L 503.0106, L100.0100, L501.5200, L501.9520, L500.4050, L501.9985, L506.1001, L500.4100 ####[facility] [address] [place], [address] Triglyceride [Mass/Vol] 123 mg/dL Normal [facility] Comment on above: Result Comment: The drugs N-Acetylcysteine and Metamizole may falsely depress this assay. Normal range: <150 mg/dL Borderline High: 150-199 mg/dL High: 200-499 mg/dL Very High: >500 mg/dL Performed By: #### L 503.0106, L100.0100, L501.5200, L501.9520, L500.4050, L501.9985, L506.1001, L500.4100 ####[facility] [address] [place], [address] MCV (mean corpuscular volume ) determinationOrdered By: Bhavana Rodírguez on 12-07-2024 MCV (RBC) [Entitic vol] 82.0 fL 81-99 [facility] MR/BMS.[facility] 12-07-2024 MR/BMS.B [facility] [address] [place], [place] [address] OFFICE VISIT Date of Service: 12/07/24 MR#: [id number] Acct: [id number] Name: SYLVIA MANCUSO Rep #: [id number] : 1970 Provider: Dr. Bhavana graff MD Age/Sex: 54/F Location: [facility] Status: Signed Intake Vital Signs 11/13/24 15:02 12/07/24 08:02 Height 5 ft 5 ft Weight: 183 lb 180 lb 4 oz BMI 35.7 35.2 BP 118/72 106/71 Blood Pressure Location Lt brachial Lt brachial Position Sitting Sitting Respiration 16 16 Pulse 86 74 Pulse Source Monitor Monitor Temp 98.0 F 98.0 F Temp Source Temporal Temporal Pulse Oximetry (%) 95 96 Oxygen Delivery Method room air room air Intake Visit Reasons: Annual/Physical Chief Complaint: Annual/Physical Screwdown Operator Required: No Accompanied by: Is patient in pain?: No Allergies naproxen Allergy (Verified 12/07/24 07:58) Hives vancomycin Allergy (Verified 12/07/24 07:58) Rash carvedilol Adverse Reaction (Verified 12/07/24 07:58) Upset Stomach Medications ???Medication ???Instructions ???Recorded ???Confirmed ???Type atenolol 25 mg tablet (Tenormin) 25 mg PO QHS heart 04/26/18 History hydroxyzine HCl 25 mg tablet 25 mg PO Q6H PRN PRN Anxiety 05/0212/07/24 History albuterol sulfate 1.25 mg/3 mL 2.5 mg (6 mL) inhalation TID-QID 0 07/28/22 12/07/24 Rx solution for nebulization PRN shortness of breath or wheezing 30 days #90 mL albuterol sulfate 90 mcg/actuation 1 - 2 puff inhalation Q4H PRN GA N 07/28/22 12/07/24 Rx aerosol inhaler Wheezing ##1 ipratropium bromide 21 mcg (0.03 2 spray intranasal BID-TID PRN 12/07/24 Rx %) nasal spray allergy symptoms #30 mL Reli On [place] glucometer 02/25/23 12/07/24 History aspirin 81 mg tablet,delayed 81 mg PO DAILY 05/13/23 12/07/24 H istory release (Adult Low Dose Aspirin) lisinopril 2.5 mg tablet 2.5 mg PO QHS BP #90 tabs 11/09/23 12/07/24 Rx Held on 02/24/24. Instructions: Hypotension flash glucose sensor (FreeStyle #1 ea 11/29/23 12/07/24 Rx Carli 14 Day Sensor kit) atorvastatin 20 mg tablet 20 mg PO DAILY #30 tabs 02/29/24 0 12/07/24 Rx omeprazole 40 mg capsule,delayed 40 mg PO BID Gerd #180 caps 12/07/24 Rx release potassium chloride 10 mEq 10 meq PO DAILY #90 tabs 06/02/24 12/07/24 Rx tablet,extended release venlafaxine 150 mg 150 mg PO DAILY #90 caps 10/04/24 12/07/24 Rx capsule,extended release 24 hr furosemide 20 mg tablet 20 mg PO DAILY #90 tabs 10/30/24 0 12/07/24 Rx fluticasone furoate 200 1 inh inhalation Q24H #60 ea 11/0812/07/24 Rx mcg-vilanterol 25 mcg/dose inhalation powder (Breo Ellipta) [facility] Medical History (Updated 12/07/24 @ 09:[address] Bhavana Rodríguez MD) Encounter for wellness examination in adult Obesity (BMI 30-39.9) Wound of skin Contusion of right tibia Elevated alkaline phosphatase level Chest pain Diabetes Flank pain Hematuria Abnormal stress test Hyperlipidemia Elevated TSH Type 2 diabetes mellitus Diastolic dysfunction Dyspnea on exertion SOB (shortness of breath) Left bundle branch block Biventricular ICD (implantable cardioverter-defibril lator) in place (09/10/20) Abnormal PFTs Asthma with acute exacerbation Allergic rhinitis due to allergen Excessive daytime sleepiness Encounter to establish care History of cardiomyopathy Heart disease A-fib Arthritis Asthma Back injury Lumbosacral radiculopathy at S1 DDD (degenerative disc disease), lumbar Bronchitis Contusion of lower back Contusion, hip COVID-19 Congestive heart failure (CHF) ICD (implantable cardioverter-defibril lator) in place Atypical chest pain Congestive heart failure (CHF) Nonischemic cardiomyopathy Surgical History History of back surgery History of neck surgery History of ankle surgery History of cholecystectomy History of appendectomy Status post biventricular pacemaker Family History Grandmother CVA (cerebral vascular accident) Mother Colon cancer High cholesterol Other Bladder cancer Cancer Diabetes Hypertension Social History Smoking Status: Never smoker alcohol intake: never substance use type: does not use caffeine: Yes (sometimes) Type: carbonated beverages, coffee and tea HPI HPI Chief Complaint: Annual/Physical Details: SYLVIA MANCUSO, is a 54 F who presents to the office today for annual wellness checkup. 54-year-old female, who has a history of type 2 diabetes, hyperlipidemia, Somma followed by cardiology routinely, status post biventricular ICD, asthma, followed by pulmonary medicine. Generally s (more content not included)... Normal [facility] Magnesiumon 12-07-2024 Magnesium [Mass/Vol] 2.2 mg/dL Normal 1.5-2.2 [facility] Comment on above: Performed By: #### L 503.0106, L100.0100, L501.5200, L501.9520, L500.4050, L501.9985, L506.1001, L500.4100 ####[facility] [address] [place], [address] Magnesium measurement (mass/ volume)Ordered By: Bhavana Rodríguez on 12-07-2024 Magnesium (Unsp spec) [Mass/Vol] 2.2 mg/dL 1.5-2.2 [facility] Mean corpuscular hemoglobin (MCH) determinationOrdered By: Bhavana Rodríguez on 12-07-2024 MCH (RBC) [Entitic mass] 25.7 pg Low 27.0-32.0 [facility] Mean corpuscular hemoglobin concentration (MCHC) determinationOrdered By: Bhavana Rodríguez on 12-07-2024 MCHC (RBC) [Mass/Vol] 31.4 g/dL Low 32-36 [facility] Mean platelet volume determi nationOrdered By: Bhavana Rodríguez on 12-07-2024 Platelet mean volume (Bld) [Entitic vol] 10.7 fL 6.2-12.0 [facility] Monocyte percentageOrdered B y: Bhavana Rodríguez on 12-07-2024 Monocytes/100 WBC (Bld) 8.4 % 0-10 [facility] Neutrophil percentageOrdered By: Bhavana Rodríguez on 12-07-2024 Neutrophils/100 WBC (Bld) 63.7 % 47-70 [facility] Nucleated red blood cell per centageOrdered By: Bhavana Rodríguez on 12-07-2024 Nucleated RBC/100 WBC (Bld) [Ratio] 0 % 0-5 [facility] Platelet countOrdered By: Eunice Rodríguez on 12-07-2024 Platelets (Bld) [#/Vol] 268 10*3/uL 150-450 [facility] Potassium measurement (mass/ volume)Ordered By: Bhavana Rodríguez on 12-07-2024 Potassium (Unsp spec) [Mass/Vol] 4.0 mmol/L 3.3-5.1 [facility] RBC Auto (Bld) [#/Vol]Ordere d By: Bhavana Rodríguez on 12-07-2024 RBC (Bld) [#/Vol] 4.78 10*6/uL 4.2-5.4 [facility] Screening total cholesterol/ high density lipoprotein (HDL) cholesterol ratioOrdered By: Bhavana Rodríguez on 12-07-2024 Cholesterol.total/Grecia sterol in HDL [Mass ratio] 3.53 {ratio} [facility] Serum creatinine measurement (mass/volume)Ordered By: Bhavana Rodríguez on 12-07-2024 Creatinine [Mass/Vol] 0.86 mg/dL 0.70-1.20 [facility] Serum globulin measurementOr dered By: Bhavana Rodríguez on 12-07-2024 Globulin (S) [Mass/Vol] 2.6 g/dL 2.2-4.2 [facility] Serum glucose measurement (m ass/volume)Ordered By: Bhavana Rodríguez on 12-07-2024 Glucose [Mass/Vol] 77 mg/dL 70-[address] [facility] Serum or plasma alanine thompson otransferase (ALT) measurementOrdered By: Bhavana Rodríguez on 12-07-2024 ALT [Catalytic activity/Vol] 14 U/L <35 [facility] Serum or plasma albumin albertina urement (mass/volume)Ordered By: Bhavana Rodríguez on 12-07-2024 Albumin [Mass/Vol] 4.5 g/dL 3.5-5.[address] [facility] Serum or plasma albumin/glob ulin mass ratioOrdered By: Bhavana Rodríguez on 12-07-2024 Albumin/Globulin [Mass ratio] 1.7 {ratio} 0.9-2.4 [facility] Serum or plasma alkaline sonja sphatase measurementOrdered By: Bhavana Rodríguez on 12-07-2024 ALP [Catalytic activity/Vol] 158 U/L High 35-104 [facility] Serum or plasma calcium albertina urement (mass/volume)Ordered By: Bhavana Rodríguez on 12-07-2024 Calcium [Mass/Vol] 9.4 mg/dL 7.6-11.[address] [facility] Serum or plasma cholesterol in HDL measurement (mass/volume)Ordered By: Bhavana Rodríguez on 12-07-2024 Cholesterol in HDL [Mass/Vol] 50 mg/dL >40 [facility] Comment on above: National Cholesterol Education Program (NCEP) guidelines:<40 mg/dL: Low HDL-cholesterol (major risk factor for CHD)>= 60 mg/dL: High HDL-cholesterol (negative risk factor for CHD)HDL-cholesterol is affected by a number of factors, e.g. smoking, exercise, hormones, sex and age. Serum or plasma cholesterol measurement (mass/volume)Ordered By: Bhavana Rodríguez on 12-07-2024 Cholesterol [Mass/Vol] 178 mg/dL <201 [facility] Comment on above: Cholesterol level, D esirable <200 mg/dLBorderline high cholesterol 200-239 mg/dLHigh cholesterol >=240 mg/dLRecommendations of the NCEP Adult Treatment Panel for the following risk-cutoff thresholds for the [place] P[place] population. Serum or plasma urea nitroge n measurement (mass/volume)Ordered By: Bhavana Rodríguez on 12-07-2024 Urea nitrogen [Mass/Vol] 11 mg/dL 4-19 [facility] Sodium levelOrdered By: Anna Rodríguez on 12-07-2024 Sodium [Moles/Vol] 144 mmol/L 133-[address] [facility] TSH DL <= 0.005 mIU/L QnOrde red By: Bhavana Rodríguez on 12-07-2024 TSH Qn 1.430 uIU/mL 0.300-4.200 [facility] Thyroid Stim Hormone (TSH)on 12-07-2024 TSH 1.430 uIU/mL Normal 0.300-4.200 [facility] Comment on above: Performed By: #### L 503.0106, L100.0100, L501.5200, L501.9520, L500.4050, L501.9985, L506.1001, L500.4100 ####[facility] [address] [place], [address] Total proteinOrdered By: Faina Rodríguez on 12-07-2024 Protein [Mass/Vol] 7.1 g/dL 5.9-8.[address] [facility] Triglycerides measurementOrd ered By: Bhavana Rodríguez on 12-07-2024 Triglyceride [Mass/Vol] 123 mg/dL <199 [facility] Comment on above: The drugs N-Acetylcy steine and Metamizole may falsely depress this assay. Normal range: <150 mg/dLBorderline High: 150-199 mg/dLHigh: 200-499 mg/dLVery High: >500 mg/dL Vitamin B12on 12-07-2024 Cobalamin (Vitamin B12) [Mass/Vol] 444 pg/mL Normal 180-914 [facility] Comment on above: Performed By: #### L 503.0106, L100.0100, L501.5200, L501.9520, L500.4050, L501.9985, L506.1001, L500.4100 ####[facility] [address] [place], [place], [id number] Vitamin B12 ser/plasOrdered By: Bhavana Rodríguez on 12-07-2024 Cobalamin (Vitamin B12) [Mass/Vol] 444 pg/mL 180-914 [facility] Vitamin D,25 Hydroxyon 12-07 Vitamin D 25-OH 25.6 ng/mL Low 30-100 [facility] Comment on above: Result Comment: Kiah min D Status Deficiency: <20 ng/mL (50nmol/L) Insufficiency: 20-30 ng/mL (50-75 nmol/L) Sufficiency: 30-100 ng/mL (75-250 nmol/L) Toxicity: >100 ng/mL (>250 nmol/L) Performed By: #### L 503.0106, L100.0100, L501.5200, L501.9520, L500.4050, L501.9985, L506.1001, L500.4100 ####[facility] [address] [place], [place], [id number] White blood cell (WBC) count Ordered By: Bhavana Rodríguez on 12-07-2024 WBC (Bld) [#/Vol] 8.5 10*3/uL 4.4-11.[address] [facility] PT D/C Summary (1)on 025 PT D/C Summary (1) [facility] Physical Therapy [facility] [place] [address] / REHABILITATION SERVICES DISCHARGE SUMMARY MR#: [id number] Acct: [id number] Name: SYLVIA MANCUSO Rep #: [id number] : 1970 54 From: Gretel Michelle PT, Cert. MDT Referring Dr.: BANG LYNNE Status: REG RCR Insurance: [employer] SELF PAY INSURANCE Discharge Summary D/C summary: It has been my pleasure to treat SYLVIA MANCUSO referred by Bang Lynne, with the diagnosis of S/P L4-5 L5-S1 LAMINECTOMY 08/04/23 for a total of 15 visit(s). Discharge Date: 11/20/24 Please see the following information for a summary of their discharge status. Subjective Subjective: PATIENT REPORTS SHE IS DOING GREAT. 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 REPORTS SHE DID GOOD AFTER LAST PT SESSION AND WOULD BE HAPPY IF WE AGREE WITH HER BEING DISCHARGED FROM PT. STATES SHE DOESN'T FEEL RESTRICTED IN ANYTHING AND IS NO LONGER WEARING THE BRACE. Overall Improvement % Improvement: 100 Objective Objective/Function: PATIENT WAS SEEN TODAY FOR RE-ASSESSMENT OF PROGRESS TOWARD THE SET PT GOALS AND THE NEED FOR FURTHER PHYSICAL THERAPY VS READINESS FOR DISCHARGE. UPON EXAM TODAY: INDEP GAIT AND TRANSFERS WITHOUT GROSS DEVIATION OR GUARDING. VIRGINIE LE STRENGTH 5/5. LE ROM: MILD LE STIFFNESS BUT WFL AND NO C/O PAIN WITH TESTIN. LUMBAR MVMT LOSS: FLEX - MIN EXT - MOD R SG - MIN L SG - NIL PATIENT DENIES PAIN WITH LUMBAR ROM TESTING. NEGATIVE VIRGINIE LE DURAL SIGNS. Goals Goal 1:: DECREASE C/O L LE SX'S BY AT LEAST 80% Goal Progress: Goal Met Goal 2:: PATIENT WILL HAVE VIRGINIE LE ROM WFL ALL PLANES W/O C/O PAIN TO HELP PATIENT RETURN TO NORMAL FUNCTION Goal Progress: Goal Met Goal 3:: PATIENT WILL HAVE LUMBAR ROM WFL ALL PLANES WITHOUT C/O PAIN Goal Progress: Progressing Goal 4:: PATIENT WILL HAVE CORE AND VIRGINIE LE STRENGTH WFL TO HELP PATIENT RETURN TO NORMAL FUNCTION. Goal Progress: Goal Met Goal 5:: INDEP HEP Goal Progress: Goal Met Plan Plan: D/C TO INDEP EX. PATIENT AGREEABLE. D/C Information d/c sentence: If there are questions or concerns regarding this patient's physical therapy, please feel free to call me at [phone]. Thank you for the referral of this patient. Sincerely, Gretel Michelle, PT, Cert MDT Balance/Gait/Function al tests Balance/Special Test Scores Oswestry Low Back Score: 0 Improvement % Improvement: 100 11/20/24 1726 CC: Dr. Bhavana Rodríguez MD; BANG LYNNE EARLENE Signed Normal [facility] MR/BMS.[facility] 11-13-2024 MR/BMS.IMB [facility] [address] [place] [address] OFFICE VISIT Date of Service: 11/13/24 MR#: [id number] Acct: [id number] Name: SYLVIA MANCUSO Rep #: [id number] : 1970 Provider: Dr. Bhavana graff MD Age/Sex: 54/F Location: [facility] Status: Signed Intake Vital Signs 08/25/24 05:28 11/10/24 11:20 11/13/24 15:02 Height 5 ft 5 ft 5 ft Weight: 183 lb BMI 35.7 BP 118/72 Blood Pressure Location Lt brachial Position Sitting Respiration 16 Pulse 86 Pulse Source Monitor Temp 98.0 F Temp Source Temporal Pulse Oximetry (%) 95 Oxygen Delivery Method room air Intake Visit Reasons: Knee Infection Chief Complaint: Knee Infection Screwdown Operator Required: No Accompanied by: Self Is patient in pain?: Yes (Right knee) Pain scale (1-10): 8 Allergies naproxen Allergy (Verified 11/13/24 14:54) Hives vancomycin Allergy (Verified 11/13/24 14:54) Rash carvedilol Adverse Reaction (Verified 11/13/24 14:54) Upset Stomach Medications ???Medication ???Instructions ???Recorded ???Confirmed ???Type atenolol 25 mg tablet (Tenormin) 25 mg PO QHS heart 04/26/18 History hydroxyzine HCl 25 mg tablet 25 mg PO Q6H PRN PRN Anxiety 05/0211/13/24 History albuterol sulfate 1.25 mg/3 mL 2.5 mg (6 mL) inhalation TID-QID 0 07/28/22 11/13/24 Rx solution for nebulization PRN shortness of breath or wheezing 30 days #90 mL albuterol sulfate 90 mcg/actuation 1 - 2 puff inhalation Q4H PRN GA N 07/28/22 11/13/24 Rx aerosol inhaler Wheezing ##1 ipratropium bromide 21 mcg (0.03 2 spray intranasal BID-TID PRN 11/13/24 Rx %) nasal spray allergy symptoms #30 mL Reli On [place] glucometer 02/25/23 11/13/24 History aspirin 81 mg tablet,delayed 81 mg PO DAILY 05/13/23 11/13/24 H istory release (Adult Low Dose Aspirin) lisinopril 2.5 mg tablet 2.5 mg PO QHS BP #90 tabs 11/09/23 11/13/24 Rx Held on 02/24/24. Instructions: Hypotension flash glucose sensor (FreeStyle #1 ea 11/29/23 11/13/24 Rx Carli 14 Day Sensor kit) atorvastatin 20 mg tablet 20 mg PO DAILY #30 tabs 02/29/24 0 11/13/24 Rx omeprazole 40 mg capsule,delayed 40 mg PO BID Gerd #180 caps 11/13/24 Rx release potassium chloride 10 mEq 10 meq PO DAILY #90 tabs 06/02/24 11/13/24 Rx tablet,extended release semaglutide 0.25 mg or 0.5 mg (2 0.5 mg (0.736 mL) subcut QWEEK #3 08/21/24 11/13/24 Rx mg/3 mL) subcutaneous pen injector mL (Ozempic) venlafaxine 150 mg 150 mg PO DAILY #90 caps 10/04/24 11/13/24 Rx capsule,extended release 24 hr furosemide 20 mg tablet 20 mg PO DAILY #90 tabs 10/30/24 0 11/13/24 Rx fluticasone furoate 200 1 inh inhalation Q24H #60 ea 11/0811/13/24 Rx mcg-vilanterol 25 mcg/dose inhalation powder (Breo Ellipta) [facility]LY [facility] Medical History (Updated 11/13/24 @ 16:[address] Bhavana Rodríguez MD) Obesity (BMI 30-39.9) Wound of skin Contusion of right tibia Elevated alkaline phosphatase level Chest pain Diabetes Flank pain Hematuria Abnormal stress test Hyperlipidemia Elevated TSH Type 2 diabetes mellitus Diastolic dysfunction Dyspnea on exertion SOB (shortness of breath) Left bundle branch block Biventricular ICD (implantable cardioverter-defibril lator) in place (09/10/20) Abnormal PFTs Asthma with acute exacerbation Allergic rhinitis due to allergen Excessive daytime sleepiness Encounter for wellness examination in adult Encounter to establish care History of cardiomyopathy Heart disease A-fib Arthritis Asthma Back injury Lumbosacral radiculopathy at S1 DDD (degenerative disc disease), lumbar Bronchitis Contusion of lower back Contusion, hip COVID-19 Congestive heart failure (CHF) ICD (implantable cardioverter-defibril lator) in place Atypical chest pain Congestive heart failure (CHF) Nonischemic cardiomyopathy Surgical History History of back surgery History of neck surgery History of ankle surgery History of cholecystectomy History of appendectomy Status post biventricular pacemaker Family History Grandmother CVA (cerebral vascular accident) Mother Colon cancer High cholesterol Other Bladder cancer Cancer Diabetes Hypertension Social History Smoking Status: Never smoker alcohol intake: never substance use type: does not use caffeine: Yes (sometimes) Type: carbonated beverages, coffee and tea HPI HPI Chief Complaint: Knee Infection Details: SYLVIA MANCUSO, is a 54 F who presents to the office today for an acute care follow-up visit. Patient had been seen a couple of occasions at an outside urgent care after she (more content not included)... Normal [facility] Tibia Fibula 2 Viewson 11-13 Tibia Fibula 2 Views [facility] Imaging Services [address] [place] [address] Tibia Fibula 2 Views MR#: [id number] Acct: [id number] Name: SYLVIA MANCUSO Rep #: [id number] : 1970 F 54 From: Gege Correia PCP: Dr. Bhavana Rodríguez MD Status: REG CLI Study: Tibia Fibula 2 Views Date of Exam: 11/13/24 Exam# [id number] Ordering Dr: Bhavana Rodríguez MD EXAM: Three views right tibia fibula. CLINICAL HISTORY: Patient fell 1 month ago. Pain below patella. Area was infected last month after the fall. COMPARISON: None TECHNIQUE: Three views of the right tibia and fibula. FINDINGS: There is normal mineralization of the osseous structures. There are no osteoblastic or osteolytic lesions seen. There is no osteomyelitis. There are no fractures or dislocations. Joint spaces are well preserved. Soft tissues are unremarkable. RAD/Tibia Fibula 2 Views IMPRESSION: Unremarkable right tibia fibula study. Reading Location: [id number] CC: Dr. Bhavana Rodríguez MD Rn Transitional: Signed [facility] Visit ([facility] ) SYLVIA MANCUSO ([id number]) 1970 F U[place] Date Time Provider Department 11/08/24 6:15 PM CRYSTAL ASHFORD [facility] During your visit today, we recorded the following information about you: Temperature Pulse Respiration Blood pressure 97.8 degrees 82/minute 18/minute 105/70 Weight 82.5 kg Crystal Ashford APRN.[facility] 11/08/2024 6:53 PM Addendum [facility] Subjective Sylvia Mancuso is a 54 year old female. Patient presents with: Derm Problem: R knee x2 weeks, seen 10/30 for same, no improvement Patient presents with wound on right knee that is painful to the touch. Patient has a cement burn on right knee and was here a few weeks ago and treated with doxycycline and topical cream. Patient states that wound has not improved despite treatment. Patient is a diabetic, takes ozempic, and does not monitor sugars at home. Patient reports occasional chills. Denies fevers. The history is provided by the patient. No high school foreign language teacher was used. Review of Systems Constitutional: Positive for chills. Negative for fatigue and fever. Skin: Positive for wound. Neurological: Negative for numbness. PAST MEDICAL HISTORY Diagnosis Date Allergies Cardiac defibrillator in place Cough variant asthma (HCC) Cyst of Bartholin's gland GERD (gastroesophageal reflux disease) History of COVID-19 IBS (irritable bowel syndrome) Pacemaker PMH - PAST MEDICAL HISTORY OF 06/14/2004 Cardiomyopathy PAST SURGICAL HISTORY Procedure Laterality Date APPENDECTOMY age 22 COLONOSCOPY FLX DX W/COLLJ SPEC WHEN PFRMD 03/11/2020 Colonoscopy ESOPHAGOGASTRODUODENO SCOPY TRANSORAL DIAGNOSTIC 03/11/2020 EGD IANDD OF BARTHOLINS GLAND ABSCESS 1999 ICD (ICD) 2009 LAPAROSCOPY SURG CHOLECYSTECTOMY 2005 Cholecystectomy, lap PAST SURGICAL HISTORY OF Left 2004 ankle /screws and plate PAST SURGICAL HISTORY OF ~2014 cervical spine surgery- unsure of what occured- states they tried to make the hole bigger on my spine ALLERGIES Carvedilol, Naproxen, Seasonal Allergies, and Vancomycin MEDICATIONS mupirocin (BACTROBAN) 2 % ointment Apply to affected area three times a day for 10 days. albuterol HFA (PROVENTIL HFA, VENTOLIN HFA) 90 mcg/actuation inhaler Inhale 2 Puffs as instructed every 4 hours as needed for wheezing/shortness of breath. aspirin, enteric coated (ASPIRIN, ENTERIC COATED) 81 mg EC tablet Take 81 mg by mouth once daily. budesonide-formoterol (SYMBICORT) 160-4.5 mcg/actuation inhaler Inhale 2 Puffs as instructed two times a day. potassium chloride (K-TAB) 10 mEq tablet Take 10 mEq by mouth two times a day. benzonatate (TESSALON PERLE) 100 mg capsule Take 2 capsules by mouth three times a day as needed. (Patient not taking: Reported on 07/12/2024) atorvastatin (LIPITOR) 20 mg tablet clobetasol (TEMOVATE) 0.05 % cream APPLY CREAM TOPICALLY TWICE DAILY TO RASH FOR UP TO 2 WEEKS A MONTH NEEDED (Patient not taking: Reported on 08/11/2024) LearnerooE 14 DAY SENSOR kit as directed. (Patient not taking: Reported on 08/11/2024) furosemide (LASIX) 20 mg tablet Take 1 tablet by mouth every afternoon. OZEMPIC 0.25 mg or 0.5 mg (2 mg/3 mL) pen INJECT 0.25 MG SUBCUTANEOUSLY ONCE EVERY WEEK atenolol (TENORMIN) 25 mg tablet Take 1 tablet by mouth once daily. albuterol HFA (PROVENTIL HFA, VENTOLIN HFA) 90 mcg/actuation inhaler Inhale 2 Puffs as instructed every 4 hours as needed for wheezing/shortness of breath. venlafaxine ER (EFFEXOR XR) 150 mg 24 hr capsule Take 1 capsule by mouth once daily. omeprazole (PRILOSEC) 40 mg capsule Take 1 capsule by mouth once daily MULTIVITAMIN ORAL Take by mouth. FAMILY HISTORY Problem Relation Age of Onset Colon Cancer Mother Lipids Mother Stroke Maternal Grandmother Anesthesia Problems No Family History Blood Clots No Family History Clotting Disorder No Family History Social History Tobacco Use Smoking status: Never Smokeless tobacco: Never Vaping Use Vaping status: Never Used Substance Use Topics Alcohol use: No Drug use: No Objective BP 105/70 Pulse 82 Temp 36.6 ?C (97.8 ?F) Resp 18 Wt 82.5 kg (181 lb 14.1 oz) LMP (LMP Unknown) SpO2 98% BMI 31.22 kg/m? Physical Exam Constitutional: Appearance: Normal appearance. HENT: Head: Normocephalic. Cardiovascular: Rate and Rhythm: Normal rate and regular rhythm. Heart sounds: Normal heart sounds. Pulmonary: Effort: Pulmonary effort is normal. Breath sounds: Normal breath sounds. Musculoskeletal: General: Tenderness and signs of injury present. Right knee: Tenderness present. Skin: General: Skin is warm. Findings: Wound present. Comments: Patient has a wound on right knee that is moist with some granulation. Neurological: Mental Status: She is alert and oriented to person, place, and time. Patient's wound does appear to be improving tori (more content not included)... Normal [facility] 10-30-2024 [facility] Office Visit ([facility] ) SYLVIA MANCUSO ([id number]) 1970 F [place] Date Time Provider Department 10/30/24 6:45 PM CHARANJIT COKER During your visit today, we recorded the following information about you: Temperature Pulse Respiration Blood pressure 98.4 degrees 82/minute 16/minute 136/84 Weight 82.8 kg Charanjit Coker APRN.[employer] 11/02/2024 7:11 AM Signed [facility] Subjective HPI HPI Sylvia Mancuso is a 54 year old female who presents today for CC of fall, right knee injury, skin infection. This started 1 day ago. Has tried otc medication for relief. Symptoms are worsened by nothing. Risk factors diabetic. .Patient presents with: Derm Problem: right knee ? infection after falling on cement x 1 day PAST MEDICAL HISTORY Diagnosis Date Allergies Cardiac defibrillator in place Cough variant asthma Cyst of Bartholin's gland GERD (gastroesophageal reflux disease) History of COVID-19 IBS (irritable bowel syndrome) Pacemaker PMH - PAST MEDICAL HISTORY OF 06/14/2004 Cardiomyopathy PAST SURGICAL HISTORY Procedure Laterality Date APPENDECTOMY age 22 COLONOSCOPY FLX DX W/COLLJ SPEC WHEN PFRMD 03/11/2020 Colonoscopy ESOPHAGOGASTRODUODENO SCOPY TRANSORAL DIAGNOSTIC 03/11/2020 EGD IANDD OF BARTHOLINS GLAND ABSCESS 1999 ICD (ICD) 2010 LAPAROSCOPY SURG CHOLECYSTECTOMY 2005 Cholecystectomy, lap PAST SURGICAL HISTORY OF Left 2004 ankle /screws and plate PAST SURGICAL HISTORY OF ~2014 cervical spine surgery- unsure of what occured- states they tried to make the hole bigger on my spine ALLERGIES Carvedilol, Naproxen, Seasonal Allergies, and Vancomycin MEDICATIONS albuterol HFA (PROVENTIL HFA, VENTOLIN HFA) 90 mcg/actuation inhaler Inhale 2 Puffs as instructed every 4 hours as needed for wheezing/shortness of breath. aspirin, enteric coated (ASPIRIN, ENTERIC COATED) 81 mg EC tablet Take 81 mg by mouth once daily. budesonide-formoterol (SYMBICORT) 160-4.5 mcg/actuation inhaler Inhale 2 Puffs as instructed two times a day. potassium chloride (K-TAB) 10 mEq tablet Take 10 mEq by mouth two times a day. atorvastatin (LIPITOR) 20 mg tablet furosemide (LASIX) 20 mg tablet Take 1 tablet by mouth every afternoon. OZEMPIC 0.25 mg or 0.5 mg (2 mg/3 mL) pen INJECT 0.25 MG SUBCUTANEOUSLY ONCE EVERY WEEK atenolol (TENORMIN) 25 mg tablet Take 1 tablet by mouth once daily. albuterol HFA (PROVENTIL HFA, VENTOLIN HFA) 90 mcg/actuation inhaler Inhale 2 Puffs as instructed every 4 hours as needed for wheezing/shortness of breath. venlafaxine ER (EFFEXOR XR) 150 mg 24 hr capsule Take 1 capsule by mouth once daily. omeprazole (PRILOSEC) 40 mg capsule Take 1 capsule by mouth once daily MULTIVITAMIN ORAL Take by mouth. doxycycline monohydrate 100 mg tablet Take 1 tablet by mouth two times a day for 7 days. mupirocin (BACTROBAN) 2 % ointment Apply to affected area three times a day for 10 days. benzonatate (TESSALON PERLE) 100 mg capsule Take 2 capsules by mouth three times a day as needed. (Patient not taking: Reported on 07/12/2024) clobetasol (TEMOVATE) 0.05 % cream APPLY CREAM TOPICALLY TWICE DAILY TO RASH FOR UP TO 2 WEEKS A MONTH NEEDED (Patient not taking: Reported on 08/11/2024) LearnerooE 14 DAY SENSOR kit as directed. (Patient not taking: Reported on 08/11/2024) FAMILY HISTORY Problem Relation Age of Onset Colon Cancer Mother Lipids Mother Stroke Maternal Grandmother Anesthesia Problems No Family History Blood Clots No Family History Clotting Disorder No Family History Social History Tobacco Use Smoking status: Never Smokeless tobacco: Never Vaping Use Vaping status: Never Used Substance Use Topics Alcohol use: No Drug use: No Review of Systems Constitutional: Negative for fever. Objective BP 136/84 Pulse 82 Temp 36.9 ?C (98.4 ?F) Resp 16 Wt 82.8 kg (182 lb 8.7 oz) LMP (LMP Unknown) SpO2 99% BMI 31.33 kg/m? Physical Exam Constitutional: General: She is not in acute distress. Appearance: She is not toxic-appearing or diaphoretic. HENT: Head: Normocephalic and atraumatic. Pulmonary: Effort: Pulmonary effort is normal. No accessory muscle usage or respiratory distress. Musculoskeletal: Legs: Neurological: Mental Status: She is alert and oriented to person, place, and time. {ASSESSMENT/PLAN: 1. Injury of right knee, initial encounter - ICD9: 959.7, ICD10: S89.91XA (primary diagnosis) -no bony abnormality noted on xray -Rest, Ice, Compression, Elevation discussed -follow up with primary care if symptoms persist/worsen in 10-14 days - XR KNEE GENERAL 4V AP BOTH/PA BOTH/LAT/MERC RIGHT IMPRESSION: Negative right knee. Dictated by : ELAYNE VILA MD 2. Need for tetanus booster - ICD9: V03.7, ICD10: Z23 - TDAP VACCINE, AGE 7+ YR (ADACEL, BOOSTRIX) 3. Skin infection - ICD9: 686.9, ICD10: L08.9 - Begin tr (more content not included)... Normal [facility] XR KNEE 4V AP/PA BOTH+LAT/ME R RTon 10-30-2024 XR KNEE 4V AP/PA BOTH+LAT/CRISTINA RT * * *Final Report* * * DATE OF EXAM: Oct 30 2024 7:20PM WOX 5203 - XR KNEE 4V AP/PA BOTH+LAT/CRISTINA RT / PROCEDURE REASON: Injury of right knee, initial encounter * * * * Physician Interpretation * * * * RIGHT KNEE X-RAY SERIES CLINICAL HISTORY: Injury, fell yesterday, pain on medial side TECHNIQUE: Bilateral AP, intercondylar and sunrise views and a right lateral view COMPARISON: None available. RESULT: No fracture, dislocation or destructive changes. Joint spaces and articular surfaces are preserved. No joint effusion. No soft tissue gas or radiodense foreign body. IMPRESSION: Negative right knee. Rn Transitional: PSCB Transcribe Date/Time: Oct 30 2024 8:00P Dictated by : ELAYNE VILA MD This examination was interpreted and the report reviewed and electronically signed by: ELAYNE VILA MD on Oct 30 2024 8:02PM EST [id number] Normal [facility] XR Knee - right 4 Viewson IMPRESSION: Negative right knee. Rn Transitional: PSCB Transcribe Date/Time: Oct 30 2024 8:00P Dictated by : ELAYNE VILA MD This examination was interpreted and the report reviewed and electronically signed by: ELAYNE VILA MD on Oct 30 2024 8:02PM [facility] DIVISION OF RADIOLOGY * * *Final Report* * * DATE OF EXAM: Oct 30 2024 7:20PM WOX 5203 - XR KNEE 4V AP/PA BOTH+LAT/CRISTINA RT / PROCEDURE REASON: Injury of right knee, initial encounter * * * * Physician Interpretation * * * * RIGHT KNEE X-RAY SERIES CLINICAL HISTORY: Injury, fell yesterday, pain on medial side TECHNIQUE: Bilateral AP, intercondylar and sunrise views and a right lateral view COMPARISON: None available. RESULT: No fracture, dislocation or destructive changes. Joint spaces and articular surfaces are preserved. No joint effusion. No soft tissue gas or radiodense foreign body. DIVISION OF RADIOLOGY Provider, [facility] - 10/30/2024 * * *Final Report* * * DATE OF EXAM: Oct 30 2024 7:20PM WOX 5203 - XR KNEE 4V AP/PA BOTH+LAT/CRISTINA RT / PROCEDURE REASON: Injury of right knee, initial encounter * * * * Physician Interpretation * * * * RIGHT KNEE X-RAY SERIES CLINICAL HISTORY: Injury, fell yesterday, pain on medial side TECHNIQUE: Bilateral AP, intercondylar and sunrise views and a right lateral view COMPARISON: None available. RESULT: No fracture, dislocation or destructive changes. Joint spaces and articular surfaces are preserved. No joint effusion. No soft tissue gas or radiodense foreign body. IMPRESSION IMPRESSION: Negative right knee. Rn Transitional: PSCB Transcribe Date/Time: Oct 30 2024 8:00P Dictated by : ELAYNE VILA MD This examination was interpreted and the report reviewed and electronically signed by: ELAYNE VILA MD on Oct 30 2024 8:02PM [facility] Radiology Study observation (narrative) Amna Caputo XR Knee - right 4 ViewsOrder ed By: Ccf Provider on 10-30-2024 [facility] ERIBERTO w/ Reflex Mult Confirmon 10-24-2024 ANTI-DNA (DS)AB TNP Normal [facility] Comment on above: Performed By: #### L 3100.5450, L101.9900, L501.6710 ####[facility] [address] [place], [address] ANTI-SS-A TNP Normal [facility] Comment on above: Performed By: #### L 3100.5450, L101.9900, L501.6710 ####[facility] [address] [place], [address] ANTI-SS-B TNP Normal [facility] Comment on above: Performed By: #### L 3100.5450, L101.9900, L501.6710 ####[facility] [address] [place], [address] CRPon 10-20-2024 C-REACTIVE PROT 3.65 mg/L High 0.0-3.0 [facility] Comment on above: Performed By: #### L 3100.5450, L101.9900, L501.6710 ####[facility] [address] [place], [address] Erythrocyte Sed Rateon 10-20 SED RATE 8 mm/hr Normal 0-30 [facility] Comment on above: Performed By: #### L 3100.5450, L101.9900, L501.6710 ####[facility] [address] [place], [address] Erythrocyte sedimentation ra teOrdered By: Bhavana Rodríguez on 10-20-2024 ESR (Bld) [Velocity] 8 mm/h 0-30 [facility] Serum DNA double strand anti body assay (units/volume)Ordered By: Bhavana Rodríguez on 10-20-2024 DNA double strand Ab Qn (S) [facility] Comment on above: Test not performed Serum Scl-70 antibody assay (units/volume)Ordered By: Bhavana Rodríguez on 10-20-2024 SCL-70 extractable nuclear Ab Qn (S) [facility] Comment on above: Test not performed Serum or plasma C reactive p rotein measurement (mass/volume)Ordered By: Bhavana Rodríguez on 10-20-2024 CRP [Mass/Vol] 3.65 mg/L High 0.0-3.0 [facility] Inital Evaluation (1) - PTon 10-09-2024 Inital Evaluation (1) - PT [facility] Physical Therapy [facility] [address] [place] [address] / REHABILITATION SERVICES INITIAL EVALUATION MR#: [id number] Acct: [id number] Name: SYLVIA MANCUSO Rep #: [id number] : 1970 54 From: Gretel Michelle PT, Cert. MDT Referring DrFlakita: BANG LYNNE Status: REG RCR Insurance: [employer] SELF PAY INSURANCE Patient's Visit Information Visit Information Visit Information: SYLVIA MANCUSO is a 54 year old F referred to Physical Therapy by Bang Lynne with a diagnosis of S/P L4-5 L5-S1 LAMINECTOMY 08/04/23 (8 WKS PO TODAY).. Date of Evaluation: 10/02/24 Physical Therapist: Gretel Michelle PT, Cert MDT Visit Plan Frequency: 2-3x /Week Duration: 6-8 WKS Plan: POSTURE CORRECTION/STRENGTHEN ING, INSTRUCTION IN APPROPRIATE BODY MECHANICS AND ACTIVITY MODIFICATIONS INCLUDING WEANING FROM BACK BRACE STARTING NEXT VISIT. DLS STARTING WITH A NEUTRAL SPINE PROGRESSING ROM STARTING AT 3 MONTHS PO. VIRGINIE LE ROM, STRETCHING AND STRENGTHENING. HEP INSTRUCTION. 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 Disability: NO Present symptoms: WEAKNESS. PATIENT REPORTS SHE WENT FOR A WALK YESTERDAY TO TRY TO PUSH HERSELF AND HER LEFT HIP STARTED TO HURT GOING UP THE HILL AFTER ABOUT 15 MIN AND THEN HURT THE REST OF THE WAY BACK. THE PAIN DECREASED WITH REST. CONSTANT NUMBNESS FIRST 3 TOES L FOOT. INTERMITTENT TINGLING BACK OF L THIGH, CALF AND HEEL. Present since: 08/14/21 Pain Scale: NO PAIN OTHER THAN THE L HIP PAIN YESTERDAY. Is it getting better, worse or staying the same: GETTING BETTER Commenced as a result of: FALL AT WORK. Symptoms at onset: LOW BACK PAIN Worse: WALKING THE DOG YESTERDAY, GOING UP STEPS PROVOKES L KNEE PAIN. Better: REST Disturbed sleep: NO Previous history/Previous treatment: H/O LBP PRIOR TO FALL SELF TREATED ONLY. Treatment this episode: AFTER FALL TRIED PT PRIOR TO SURGERY BUT COULD NOT TOLERATE IT. ALSO TRIED PRESCRIPTION MEDICATION AND PAIN MGMT JACQUELINE'S WITHOUT BENEFIT. S/P L4-5 L5-S1 LAMINECTOMY 08/04/23 (8 WKS PO TODAY). Coughing/sneezing/str aining: NEGATIVE FOR INCREASED PAIN. Gait: ABOUT 30 MINUTE WALK YESTERDAY AT [employer] [facility] STARTING AND STOPPING WITH DOG AND . Bowel or Bladder Dysfunction: NONE CURRENT. Accidents: NO Unexplained weight loss: NO Imaging: MYELOGRAM BEFORE LUMBAR SX. CAN'T HAVE MRI DUE TO PACEMAKER. PMH/Recent major surgery: *PACEMAKER* NIDDM. HTN. HIGH CHOLESTEROL, NECK SX YEARS AGO, L ANKLE SX. OTHER: PATIENT REPORTS SURGEON HAS LEFT RESTRICTIONS UP TO PHYSICAL THERAPY BUT CURRENTLY ON LIFTING RESTRICTION. CURRENTLY WEARING BACK BRACE AT ALL TIMES OUTSIDE OF HOME BUT NOT IN HOME. F/U PENDING WITH SURGEON NEXT Wednesday10/12/24. SHE STATES SHE HAS BEEN TRYING NOT TO BEND AND TWIST BUT SHE HASN'T BEEN ABLE TO AVOID TWISTING BECAUSE SHE HAS A DOG THAT WEIGHS 25 TO 30 LBS AND SHE KNEELS DOWN TO HELP PUSH HIM UP ON TO THE BED AND CAN'T HELP BUT TWIST SOME. Objective Objective: Sitting/Standing Posture: L ILIAC CREST HIGHER THAN R. MILD ANTERIOR PELVIC TILT. Active Correction of posture: NE. ABLE TO CORRECT BUT DOES NOT MAINTAIN. Other Observations: INDEP GAIT AND TRANSFERS WITH NO GROSS DEVIATIONS NOTED. INDEP TRANSFER SIT TO STAND WITHOUT UE ASSIST. Sensory deficit: VIRGINIE LE LIGHT TOUCH SENSATION GROSSLY INTACT AND SYMMETRICAL EXCEPT L 1ST, 2ND AND 3RD TOES WHICH HAVE DECREASED LIGHT TOUCH SENSATION COMPARED TO R. ROM deficit: VIRGINIE LE HS AND CALF TIGHTNESS L > R. R HIP IR/ER TIGHTNESS AND PAIN WITH TESTING. Motor deficit: R HIP 4/5, KNEE 5/5, ANKLE 5/5. L HIP 4-/5, KNEE 4/5, ANKLE 5/5. VIRGINIE EHL 5/5. Reflexes: VIRGINIE QUADS 2+, VIRGINIE ACHILLES 2+ Dural Signs: - VIRGINIE LE'S NEGATIVE. Lumbar mvmt loss: NT Core strength: POOR Palpation: TENDERNESS L GREATER TROCH REGION. OTHER: EVAL NEEDED TO BE STOPPED DURING SUBJECTIVE PORTION DUE TO PATIENT FELLING NAUSEOUS AND VOMITING. PATIENT THEN WANTING TO PROCEED WITH EVALUATION. THIS PT PROCEEDED WITH MODIFIED EVAL DUE TO PATIENT STILL NOT LOOKING LIKE SHE FELT VERY GOOD EVEN THOUGH SHE WAS REQUESTING TO CONTINUE. Balance/Special Test Scores Oswestry Low Back Score: 4 Goals Goal 1:: DECREASE C/O L LE SX'S BY AT LEAST 80% Goal Time Frame: 6-8 Weeks Goal 2:: PATIENT WILL HAVE VIRGINIE LE ROM WFL ALL PLANES W/O C/O PAIN TO HELP PATIENT RETURN TO NORMAL FUNCTION Goal Time Frame: 6-8 Weeks Goal 3:: PATIENT WILL HAVE LUMBAR ROM WFL ALL PLANES WITHOUT C/O PAIN Goal Time Frame: 6-8 Weeks Goal 4:: PATIENT WILL HAVE CORE AND VIRGINIE LE STRENGTH WFL TO HELP PATIENT RETURN TO NORMAL FUNCTION. Goal Time Frame: 8-12 Weeks Goal 5:: INDEP HEP Goal Time Frame: 8-12 Weeks Rehabilitation Potential Physical Therapy Diagnosis: CORE WEAKNESS WITH VIRGINIE LE WEAKNESS AND STIFFNESS L>R. Rehabilitation Potential: Good Anticipated Interventions Patient (more content not included)... Normal [facility] Chest without Contraston Chest without Contrast [facility] Imaging Services [address] [place] [address] [id number] Chest without Contrast MR#: [id number] Acct: [id number] Name: SYLVIA MANCUSO Rep #: [id number] : 1970 F 54 From: Renetta liu MD PCP: Dr. Bhavana Rodríguez MD Status: REG CLI Study: Chest without Contrast Date of Exam: 09/27/24 Exam# [id number] Ordering Dr: Meghan Barbour ALUMINUM SIDING APPLICATOR- C PROCEDURE: CHEST WITHOUT CONTRAST 09/27/2024 REASON FOR EXAM: SHORTNESS OF BREATH, PREVIOUS GROUND GLASS OPACITY TECHNIQUE: Chest CT without contrast. Coronal and Sagittal reconstruction series were provided. One or more dose reduction techniques were used (e.g., Automated exposure control, adjustment of the mA and/or kV according to patient size, use of iterative reconstruction technique RADIATION DOSE SUMMARY: CTDlvol: mGy DLP: mGycm COMPARISON: none FINDINGS: Bilateral upper lobes reticulations and right lower lobe calcified nodule. Left lower lung lobe 3 mm pulmonary nodule. No obvious pulmonary masses, consolidations or cavitary changes. Bilateral pulmonary atelectatic plates. The heart size is within normal. Cardiac pacemaker is noted. No pleural or pericardial effusion. No pathologically enlarged lymph nodes are noted. No definite mass lesion in the chest wall. Intact bony thoracic cage with no fractures or osseous destruction. The examined vertebrae showing preserved height with no fracture of dislocation. Thoracic spondylosis. Scanned upper abdomen show cholecystectomy clips. CT/Chest without Contrast IMPRESSION: No acute cardiopulmonary abnormalities. Left lower lung lobe 3 mm pulmonary nodule. According to Fleischner society of radiology, no follow up in low risk patients. No obvious pulmonary masses or consolidations. Reading Location: [place] [address] CC: Dr. Bhavana Rodríguez MD; Meghan Barbour NP Rn Transitional: Signed Normal [facility] ALK Phos Isoenzymeon 08-28- 025 ALK PHOS, S 138 IU/L High 44-121 [facility] Comment on above: Performed By: #### L 3250.0100 ####[facility] [address] [place], [place], [id number] BONE FRACTION 22 Normal 14-68 [facility] Comment on above: Performed By: #### L 3250.0100 ####[facility] [address] [place], [place], [id number] INTESTINAL FRAC 9 Normal 0-18 [facility] Comment on above: Result Comment: Perf ormed at: - [facility] [address] [id number] Umbrella Repairer: Edwardo Kohler PhD, Phone: [phone] Performed By: #### L 3250.0100 ####[facility] [address] [place], [place], [address] LIVER FRACTION 69 Normal 18-85 [facility] Comment on above: Performed By: #### L 3250.0100 ####[facility] [address] [place], [address] ALP Bone [Catalytic fraction ]Ordered By: Bhavana Rodríguez on 08-25-2024 Alkaline Phosphatase Iso-Bone 22 % 14-68 [facility] ALP Intest [Catalytic fracti on]Ordered By: Bhavana Rodríguez on 08-25-2024 Alkaline Phosphatase Iso-Intestine 9 % 0-18 [facility] Comment on above: Performed at: [address] [id number] Director: Edwardo Kohler PhD, Phone: [phone] ALP Liver [Catalytic fractio n]Ordered By: Bhavana Rodríguez on 08-25-2024 Alkaline Phosphatase Iso-Liver 69 % 18-85 [facility] Alkaline phosphatase, serumO rdered By: Bhavana Rodríguez on 08-25-2024 Alkaline Phosphatase Isoenzymes 138 IU/L High 44-121 [facility] ALP [Catalytic activity/Vol] 138 U/L High 44-121 [facility] Pulmonary Visit Reporton Pulmonary Visit Report [facility] [place] [address] [place] [address] OFFICE VISIT Date of Service: 08/25/24 MR#: [id number] Acct: [id number] Name: SYLVIA MANCUSO Rep #: [id number] : 1970 Provider: Meghan Barbour NP Age/Sex: 54/F Location: [facility] Status: Signed Assessment and Plan Assessment and Plan (1) Asthma: Status: Chronic Qualifiers: Asthma complication type: uncomplicated Asthma persistence: persistent Asthma severity: moderate Qualified Code(s): J45.40 - Moderate persistent asthma, uncomplicated Plan: PFT is grossly normal. NIOX is within normal limits today. She has received benefit with use of Breo and I recommend that she continue with this inhaler therapy. Contact the office with any new or worsening symptoms. (2) Atypical chest pain: Status: Chronic Plan: Chest pain associated with dizziness and shortness of breath does continue. Trace nonpitting bilateral lower extremity edema is also present. I have asked for her to continue to follow with cardiology. (3) Congestive heart failure (CHF): Status: Chronic Qualifiers: Heart failure chronicity: chronic Heart failure type: diastolic Qualified Code(s): I50.32 - Chronic diastolic (congestive) heart failure Plan: Complicates exam, plan, care and prognosis. (4) Hoarseness: Status: Acute Plan: Refer to ENT, Dr. Yanira Sapp for hoarseness and to consider laryngoscopy. (5) SOB (shortness of breath): Status: Acute Plan: The patient has shortness of breath with just 4 minutes of ambulation. Associated symptoms do include dizziness. I am not convinced that this is due to her asthma as the testing shows that she has good control. Previous CT scan did show groundglass opacities. I have recommended repeating the CT scan at this point due to the shortness of breath. I plan to discuss this plan with her PCP as well. Orders: Orders NIOX Today J45.40 - Moderate persistent asthma, uncomplicated Chest without Contrast Today R06.02 - Shortness of breath Referrals Ears, Nose and Throat R49.0 - Dysphonia Plan Details Follow Up: 3 to 4 months (LMR) HPI HPI Comments Details: This 54-year-old female patient presents to the office today to review recent testing. She has a history of asthma. She is ambulatory and on room air. The patient reports that she had bronchitis after back surgery in July and went to the urgent care. She was coughing and had low grade fever that would come and go. She was given a rescue inhaler for the chest tightness and reports that she has used it recently but without a spacer. She denies wheezing and coughing. She continues to have shortness of breath with exertion. At last visit the patient was changed from Symbicort to Breo as she was not compliant with use of Symbicort. She has continued to use Breo without sore throat or hoarseness. Breo has stopped coughing in morning when she gets up. When she is tight in her chest, she has a problem with her voice, it becomes hoarse off and on. She reports that she is using Lasix 20 mg once daily in the morning. She indicates that she does feel the medication wear off in the afternoon as there is less urination and more fluid retention as the day goes on. She reports that she has shortness of breath with exertion. She reports that this has not accelerated but continues to be present. She does have a cough with chest congestion but is unable to expectorate sputum. She denies chest tightness, chest palpitations. She does report chest pain which occurs on occasion. At last visit she did follow-up with cardiology and an EKG was performed. She reports that lisinopril has been held since March due to dizziness. She has had a couple of episodes of dizziness which can last up to 2 hours. She has noticed her voice becoming hoarse at times even without the use of ICS/LABA. She does report that her acid reflux is controlled with use of omeprazole. She has not had a laryngoscopy. She is not reporting fever, chills or body aches. She does experience sinus congestion and PND. In the past she has tried Claritin without benefit. If you recall, she is a lifelong never smoker. She has achieved significant weight loss, 30 pounds with prudent dieting. She reports that she has started to gain weight again. She has a history of COVID and at one point she was told that her cough was from her history of COVID. Documentation reviewed with patient today includes: 6-minute walk test from June 27, 2024 which shows that she was unable to complete the testing beyond 4 minutes due to shortness of breath and dizziness. Resting oxygen saturation was noted to be at 97% on room air and with ambulation the jonatan oxygen saturation was 98%. There is no significant oxygen desaturation. There is no indication for the use of supplemental oxygen (more content not included)... Normal [facility] Serum or plasma bone alkalin e phosphatase/total alkaline phosphatase ratio (catalyticOrdered By: Bhavana Rodríguez on 08-25-2024 ALP Bone [Catalytic fraction] 22 % 14- [facility] Serum or plasma intestinal a lkaline phosphatase/total alkaline phosphatase ratio (catOrdered By: Bhavana Rodríguez on 08-25-2024 ALP Intest [Catalytic fraction] 9 % 0-18 [facility] Comment on above: Performed at: [address] [id number] Director: Edwardo Kohler PhD, Phone: [phone] Serum or plasma liver alkali ne phosphatase/total alkaline phosphatase ratio (catalytiOrdered By: Bhavana Rodríguez on 03-14-2025 ALP Liver [Catalytic fraction] 69 % 18-85 [facility] CNOVon 08-11-2024 CNOV Office Visit (UCWSTR ) SYLVIA MANCUSO ([id number]) 1970 F U[employer] Date Time Provider Department 08/11/24 1:45 PM BRITTANY FLORIAN [facility] During your visit today, we recorded the following information about you: Temperature Pulse Respiration Blood pressure 98.2 degrees 114/minute 20/minute 110/78 Weight 83 kg Brittany Florian APRN.[employer] 08/11/2024 2:21 PM Signed This note was created using Couchbaseriter. Subjective Sylvia Mancuso is a 54 year old female. 54 year old female with PMH asthma, DM, ICD, CHF presents for illness Acute onset one week ago + cough +productive at times +sinus pressure +sinus congestion Denies CP Denies abdominal pain Denies N/V/D Denies skin rash or lesions. Denies tobacco usage The history is provided by the patient. No high school foreign language teacher was used. Cough This is a new problem. The current episode started more than 1 week ago. The problem occurs constantly. The problem has been gradually worsening. Cough characteristics: productive at times and then non productive other times. There has been no fever. Associated symptoms include ear congestion, ear pain, headaches, rhinorrhea, shortness of breath and wheezing. Pertinent negatives include no chest pain, no chills, no sweats, no weight loss, no sore throat, no myalgias and no eye redness. She has tried nothing for the symptoms. The treatment provided no relief. She is not a smoker. Her past medical history is significant for asthma. Her past medical history does not include bronchitis, pneumonia, bronchiectasis, COPD or emphysema. PAST MEDICAL HISTORY Diagnosis Date Allergies Cardiac defibrillator in place Cough variant asthma Cyst of Bartholin's gland GERD (gastroesophageal reflux disease) History of COVID-19 IBS (irritable bowel syndrome) Pacemaker PMH - PAST MEDICAL HISTORY OF 06/14/2004 Cardiomyopathy PAST SURGICAL HISTORY Procedure Laterality Date APPENDECTOMY age 22 COLONOSCOPY FLX DX W/COLLJ SPEC WHEN PFRMD 03/11/2020 Colonoscopy ESOPHAGOGASTRODUODENO SCOPY TRANSORAL DIAGNOSTIC 03/11/2020 EGD IANDD OF BARTHOLINS GLAND ABSCESS 1999 ICD (ICD) 2009 LAPAROSCOPY SURG CHOLECYSTECTOMY 2005 Cholecystectomy, lap PAST SURGICAL HISTORY OF Left 2005 ankle /screws and plate PAST SURGICAL HISTORY OF ~2014 cervical spine surgery- unsure of what occured- states they tried to make the hole bigger on my spine ALLERGIES Carvedilol, Naproxen, Seasonal Allergies, and Vancomycin MEDICATIONS aspirin, enteric coated (ASPIRIN, ENTERIC COATED) 81 mg EC tablet Take 81 mg by mouth once daily. budesonide-formoterol (SYMBICORT) 160-4.5 mcg/actuation inhaler Inhale 2 Puffs as instructed two times a day. potassium chloride (K-TAB) 10 mEq tablet Take 10 mEq by mouth two times a day. atorvastatin (LIPITOR) 20 mg tablet furosemide (LASIX) 20 mg tablet Take 1 tablet by mouth every afternoon. OZEMPIC 0.25 mg or 0.5 mg (2 mg/3 mL) pen INJECT 0.25 MG SUBCUTANEOUSLY ONCE EVERY WEEK atenolol (TENORMIN) 25 mg tablet Take 1 tablet by mouth once daily. albuterol HFA (PROVENTIL HFA, VENTOLIN HFA) 90 mcg/actuation inhaler Inhale 2 Puffs as instructed every 4 hours as needed for wheezing/shortness of breath. omeprazole (PRILOSEC) 40 mg capsule Take 1 capsule by mouth once daily MULTIVITAMIN ORAL Take by mouth. doxycycline (VIBRA-TABS) 100 mg tablet Take 1 tablet by mouth two times a day for 7 days. albuterol HFA (PROVENTIL HFA, VENTOLIN HFA) 90 mcg/actuation inhaler Inhale 2 Puffs as instructed every 4 hours as needed for wheezing/shortness of breath. Inhalational Spacing Device 1 Device one time only for 1 dose. benzonatate (TESSALON PERLE) 100 mg capsule Take 2 capsules by mouth three times a day as needed. (Patient not taking: Reported on 07/12/2024) clobetasol (TEMOVATE) 0.05 % cream APPLY CREAM TOPICALLY TWICE DAILY TO RASH FOR UP TO 2 WEEKS A MONTH NEEDED (Patient not taking: Reported on 08/11/2024) [employer] CARLI 14 DAY SENSOR kit as directed. (Patient not taking: Reported on 08/11/2024) venlafaxine ER (EFFEXOR XR) 150 mg 24 hr capsule Take 1 capsule by mouth once daily. FAMILY HISTORY Problem Relation Age of Onset Colon Cancer Mother Lipids Mother Stroke Maternal Grandmother Anesthesia Problems No Family History Blood Clots No Family History Clotting Disorder No Family History Social History Tobacco Use Smoking status: Never Smokeless tobacco: Never Vaping Use Vaping status: Never Used Substance Use Topics Alcohol use: No Drug use: No Review of Systems Constitutional: Negative for chills, fatigue, fever and weight loss. HENT: Positive for congestion, ear pain, rhinorrhea, sinus pressure and sinus pain. Negative for sore throat. Eyes: Negative for pain, discharge, redness and itching. Respiratory: Positive for cough, shortness of breath and wheezing. Cardiovascular: Nega (more content not included)... Normal [facility] XR CHEST 2V FRONTAL/LATon XR CHEST 2V FRONTAL/LAT * * *Final Repor t* * * DATE OF EXAM: Aug 11 2024 1:51PM WOX [id number] - XR CHEST 2V FRONTAL/LAT / PROCEDURE REASON: Acute cough * * * * Physician Interpretation * * * * EXAMINATION: CHEST RADIOGRAPH (2 VIEW FRONTAL and LATERAL) CLINICAL HISTORY: Acute cough MQ: XC2_6 EXAM DATE/TIME: 08/11/2024 1:51 PM COMPARISON: Chest x-ray on 03/10/2024 RESULT: Lines, tubes, and devices: Stable left chest dual-chamber AICD and epicardial leads. Lungs and pleura: No consolidation. No lung mass. No pleural effusion. No pneumothorax. Cardiomediastinal silhouette: Normal cardiomediastinal silhouette. Bones and soft tissues: Unremarkable. IMPRESSION: No acute radiographic abnormality. Rn Transitional: PSCB Transcribe Date/Time: Aug 11 2024 1:51P Dictated by : PHOENIX MORGAN MD This examination was interpreted and the report reviewed and electronically signed by: PHOENIX MORGAN MD on Aug 11 2024 1:53PM EST [id number] Normal [facility] Chest PA and Lateralon Radiology Study observation (narrative) Amna garcia [facility] IMPRESSION: No acute radiographic abnormality. Rn Transitional: JUAN Transcribe Date/Time: Aug 11 2024 1:51P Dictated by : PHOENIX MORGAN MD This examination was interpreted and the report reviewed and electronically signed by: PHOENIX MORGAN MD on Aug 11 2024 1:53PM [facility] DIVISION OF RADIOLOGY * * *Final Report* * * DATE OF EXAM: Aug 11 2024 1:51PM WOX 5291 - XR CHEST 2V FRONTAL/LAT / PROCEDURE REASON: Acute cough * * * * Physician Interpretation * * * * EXAMINATION: CHEST RADIOGRAPH (2 VIEW FRONTAL & LATERAL) CLINICAL HISTORY: Acute cough MQ: XC2_6 EXAM DATE/TIME: 08/11/2024 1:51 PM COMPARISON: Chest x-ray on 03/10/2024 RESULT: Lines, tubes, and devices: Stable left chest dual-chamber AICD and epicardial leads. Lungs and pleura: No consolidation. No lung mass. No pleural effusion. No pneumothorax. Cardiomediastinal silhouette: Normal cardiomediastinal silhouette. Bones and soft tissues: Unremarkable. DIVISION OF RADIOLOGY Provider, [facility] - 08/11/2024 * * *Final Report* * * DATE OF EXAM: Aug 11 2024 1:51PM WOX 5291 - XR CHEST 2V FRONTAL/LAT / PROCEDURE REASON: Acute cough * * * * Physician Interpretation * * * * EXAMINATION: CHEST RADIOGRAPH (2 VIEW FRONTAL & LATERAL) CLINICAL HISTORY: Acute cough MQ: XC2_6 EXAM DATE/TIME: 08/11/2024 1:51 PM COMPARISON: Chest x-ray on 03/10/2024 RESULT: Lines, tubes, and devices: Stable left chest dual-chamber AICD and epicardial leads. Lungs and pleura: No consolidation. No lung mass. No pleural effusion. No pneumothorax. Cardiomediastinal silhouette: Normal cardiomediastinal silhouette. Bones and soft tissues: Unremarkable. IMPRESSION IMPRESSION: No acute radiographic abnormality. Rn Transitional: JUAN Transcribe Date/Time: Aug 11 2024 1:51P Dictated by : PHOENIX MORGAN MD This examination was interpreted and the report reviewed and electronically signed by: PHOENIX MORGAN MD on Aug 11 2024 1:53PM EST [facility] XR Chest PA and LateralOrder ed By: Ccf Provider on 08-11-2024 [facility] Basic Metabolic Profile (BMP )on 08-01-2024 BUN/CRE 14.9 RATIO Normal 10-20 [facility] Comment on above: Order Comment: NP. Laura FRANKEL ORDERED CBCD AND CMPDR.COLEMAN ORDERED LIVER AND LIPID Performed By: #### L 500.4100, L100.0100, L500.2500, L500.3400 ####[facility] [address] [place], [address] CA,Total 9.3 mg/dL Normal 8.5-10.1 [facility] Comment on above: Order Comment: NP. Laura FRANKEL ORDERED CBCD AND CMPDR.[facility] ORDERED LIVER AND LIPID Performed By: #### L 500.4100, L100.0100, L500.2500, L500.3400 ####[facility] [address] [place], [address] Chloride [Moles/Vol] 107 mmol/L Normal 98-107 [facility] Comment on above: Order Comment: NP. Laura FRANKEL ORDERED CBCD AND CMPDR.[facility] ORDERED LIVER AND LIPID Performed By: #### L 500.4100, L100.0100, L500.2500, L500.3400 ####[facility] [address] [place], [address] CO2 [Moles/Vol] 28.0 mmol/L Normal 21.0-32.0 [facility] Comment on above: Order Comment: NP. Laura FRANKEL ORDERED CBCD AND CMPDR.[facility] ORDERED LIVER AND LIPID Performed By: #### L 500.4100, L100.0100, L500.2500, L500.3400 ####[facility] [address] [place], [address] Creatinine [Mass/Vol] 1.01 mg/dL Normal 0.55-1.02 [facility] Comment on above: Order Comment: NP. Laura FRANKEL ORDERED CBCD AND CMPDR.COLEMAN ORDERED LIVER AND LIPID Result Comment: The validity of the calculated GFR GFRAA in patients over 70 years has not been determined. Clinical correlation is essential. Performed By: #### L 500.4100, L100.0100, L500.2500, L500.3400 ####[facility] [address] [place], [address] EST GFR - AA 74 mL/min Normal >60 [facility] Comment on above: Order Comment: NP. Laura FRANKEL ORDERED CBCD AND CMPDR.COLEMAN ORDERED LIVER AND LIPID Result Comment: Afri can Prydeinig GFR Calc Performed By: #### L 500.4100, L100.0100, L500.2500, L500.3400 ####[facility] [address] [place], [address] GAP 6 Normal 5-15 [facility] Comment on above: Order Comment: NP. Laura FRANKEL ORDERED CBCD AND CMPDR.COLEMAN ORDERED LIVER AND LIPID Performed By: #### L 500.4100, L100.0100, L500.2500, L500.3400 ####[facility] [address] [place], [address] GFR/1.73 sq M.predicted among non-blacks MDRD (S/P/Bld) [Vol rate/Area] 61 mL/min/{1.73_m2} Normal >60 [facility] Comment on above: Order Comment: NP. Laura FRANKEL ORDERED CBCD AND CMPDR.COLEMAN ORDERED LIVER AND LIPID Result Comment: Non- GFR Calc Performed By: #### L 500.4100, L100.0100, L500.2500, L500.3400 ####[facility] [address] [place], [address] Glucose [Mass/Vol] 124 mg/dL High 74-[address] [facility] Comment on above: Order Comment: NP. Laura FRANKEL ORDERED CBCD AND CMPDR.COLEMAN ORDERED LIVER AND LIPID Result Comment: Fast ing Glucose result from 100 to 125 mg/dL suggests IMPAIRED HOMEOSTASIS per A.D.A. criteria. Performed By: #### L 500.4100, L100.0100, L500.2500, L500.3400 ####[facility] [address] [place], [address] Potassium [Moles/Vol] 4.0 mmol/L Normal 3.5-5.1 [facility] Comment on above: Order Comment: NP. Laura FRANKEL ORDERED CBCD AND CMPDR.COLEMAN ORDERED LIVER AND LIPID Performed By: #### L 500.4100, L100.0100, L500.2500, L500.3400 ####[facility] [address] [place], [address] Sodium [Moles/Vol] 141 mmol/L Normal 136-[address] [facility] Comment on above: Order Comment: NP. Laura FRANKEL ORDERED CBCD AND CMPDR.COLEMAN ORDERED LIVER AND LIPID Performed By: #### L 500.4100, L100.0100, L500.2500, L500.3400 ####[facility] [address] [place], [address] Urea nitrogen [Mass/Vol] 15 mg/dL Normal 7-18 [facility] Comment on above: Order Comment: NP. Laura FRANKEL ORDERED CBCD AND CMPDR.COLEMAN ORDERED LIVER AND LIPID Performed By: #### L 500.4100, L100.0100, L500.2500, L500.3400 ####[facility] [address] [place], [address] Absolute lymphocyte countOrd ered By: Aydin Cee on 07-31-2024 Lymphocytes Auto (Unsp spec) [#/Vol] 1.60 10*3/uL 0.83-4.51 [facility] Absolute neutrophil countOrd ered By: Aydin Cee on 07-31-2024 Neutrophils (Bld) [#/Vol] 5.1 10*3/uL 2.0-7.7 [facility] Automated lymphocyte count a s percentage of total leukocytesOrdered By: Aydin Cee on 07-31-2024 Lymphocytes/100 WBC Auto (Unsp spec) 22.3 % 19-41 [facility] Basophil percentageOrdered B y: Aydin Cee on 07-31-2024 Basophils/100 WBC (Bld) 0.6 % 0-1 [facility] Bilirubin directOrdered By: Aydin Cee on 07-31-2024 Bilirubin.direct [Mass/Vol] 0.11 mg/dL 0.00-0.30 [facility] Bilirubin, totalOrdered By: Aydin Cee on 07-31-2024 Bilirubin [Mass/Vol] 0.30 mg/dL 0.20-1.00 [facility] Comment on above: For patients on eltr ombopag therapy, use of Dimension [place] TBIL is not recommended. Blood urea nitrogen (BUN)/cr eatinine ratioOrdered By: Aydin Cee on 07-31-2024 Urea nitrogen/Creatinine [Mass ratio] 14.9 mg/mg 10-20 [facility] CBC W/Diff, Automatedon 07-15 Absolute Lymph 1.60 X10 3/uL Normal 0.83-4.51 [facility] Comment on above: Order Comment: NP. Laura FRANKEL ORDERED CBCD AND CMP ORDERED LIVER AND LIPID Performed By: #### L 500.4100, L100.0100, L500.2500, L500.3400 #### [facility] [address] [place], [address] Absolute Neut 5.1 X10 3/uL Normal 2.0-7.7 [facility] Comment on above: Order Comment: NP. Laura FRANKEL ORDERED CBCD AND CMP ORDERED LIVER AND LIPID Performed By: #### L 500.4100, L100.0100, L500.2500, L500.3400 #### [facility] [address] [place], [address] Basophils/100 WBC (Bld) 0.6 % Normal 0-1 [facility] Comment on above: Order Comment: NP. Laura FRANKEL ORDERED CBCD AND CMP ORDERED LIVER AND LIPID Performed By: #### L 500.4100, L100.0100, L500.2500, L500.3400 #### [facility] [address] [place], [address] Eosinophils/100 WBC (Bld) 0.8 % Normal 0-5 [facility] Comment on above: Order Comment: NP. Laura FRANKEL ORDERED CBCD AND CMP ORDERED LIVER AND LIPID Performed By: #### L 500.4100, L100.0100, L500.2500, L500.3400 #### [facility] [address] [place], [address] Erythrocyte distribution width (RBC) [Ratio] 13.6 % Normal 11.6-14.6 [facility] Comment on above: Order Comment: NP. Laura FRANKEL ORDERED CBCD AND CMP ORDERED LIVER AND LIPID Performed By: #### L 500.4100, L100.0100, L500.2500, L500.3400 #### [facility] [address] [place], [address] Hematocrit (Bld) [Volume fraction] 38.7 % Normal 37-47 [facility] Comment on above: Order Comment: NP. Laura FRANKEL ORDERED CBCD AND CMP ORDERED LIVER AND LIPID Performed By: #### L 500.4100, L100.0100, L500.2500, L500.3400 #### [facility] [address] [place], [address] Hemoglobin (Bld) [Mass/Vol] 12.5 g/dL Normal 12.0-15.0 [facility] Comment on above: Order Comment: NP. Laura FRANKEL ORDERED CBCD AND CMP ORDERED LIVER AND LIPID Performed By: #### L 500.4100, L100.0100, L500.2500, L500.3400 #### [facility] [address] [place], [address] IG% 0.100 Normal 0.0-0.9 [facility] Comment on above: Order Comment: NP. Laura FRANKEL ORDERED CBCD AND CMP ORDERED LIVER AND LIPID Result Comment: IG% - Immature Granulocytes (promyelocytes, myelocytes and metamyelocytes) > 1% indicates that a LEFT SHIFT is Present. Performed By: #### L 500.4100, L100.0100, L500.2500, L500.3400 #### [facility] [address] [place], [address] Lymphocytes/100 WBC (Bld) 22.3 % Normal 19-41 [facility] Comment on above: Order Comment: NP. Laura FRANKEL ORDERED CBCD AND CMP ORDERED LIVER AND LIPID Performed By: #### L 500.4100, L100.0100, L500.2500, L500.3400 #### [facility] [address] [place], [address] MCH (RBC) [Entitic mass] 27.7 pg Normal 27.0-32.0 [facility] Comment on above: Order Comment: NP. Laura FRANKEL ORDERED CBCD AND CMP ORDERED LIVER AND LIPID Performed By: #### L 500.4100, L100.0100, L500.2500, L500.3400 #### [facility] [address] [facility] [place], [address] MCHC (RBC) [Mass/Vol] 32.3 g/dL Normal 32-36 [facility] Comment on above: Order Comment: NP. Laura FRANKEL ORDERED CBCD AND CMP ORDERED LIVER AND LIPID Performed By: #### L 500.4100, L100.0100, L500.2500, L500.3400 #### [facility] [address] [place], [address] MCV (RBC) [Entitic vol] 85.6 fL Normal 81-[address] [facility] Comment on above: Order Comment: NP. Laura FRANKEL ORDERED CBCD AND CMP ORDERED LIVER AND LIPID Performed By: #### L 500.4100, L100.0100, L500.2500, L500.3400 #### [facility] [address] [place], [address] Monocytes/100 WBC (Bld) 5.3 % Normal 0-[address] [facility] Comment on above: Order Comment: NP. Laura FRANKEL ORDERED CBCD AND CMP ORDERED LIVER AND LIPID Performed By: #### L 500.4100, L100.0100, L500.2500, L500.3400 #### [facility] [address] [place], [address] Neutrophils/100 WBC (Bld) 70.9 % High 47-70 [facility] Comment on above: Order Comment: NP. Laura FRANKEL ORDERED CBCD AND CMP ORDERED LIVER AND LIPID Performed By: #### L 500.4100, L100.0100, L500.2500, L500.3400 #### [facility] [address] [place], [address] Nucleated RBC (Bld) [#/Vol] 0 10*3/uL Normal 0-5 [facility] Comment on above: Order Comment: NP. Laura FRANKEL ORDERED CBCD AND CMP ORDERED LIVER AND LIPID Performed By: #### L 500.4100, L100.0100, L500.2500, L500.3400 #### [facility] [address] [place], [address] Platelet mean volume (Bld) [Entitic vol] 9.9 fL Normal 6.2-12.0 [facility] Comment on above: Order Comment: NP. Laura FRANKEL ORDERED CBCD AND CMP ORDERED LIVER AND LIPID Performed By: #### L 500.4100, L100.0100, L500.2500, L500.3400 #### [facility] [address] [place], [address] Platelets (Bld) [#/Vol] 244 10*3/uL Normal 150-450 [facility] Comment on above: Order Comment: NP. Laura FRANKEL ORDERED CBCD AND CMP ORDERED LIVER AND LIPID Performed By: #### L 500.4100, L100.0100, L500.2500, L500.3400 #### [facility] [address] [place], [address] RBC (Bld) [#/Vol] 4.52 10*6/uL Normal 4.2-5.4 [facility] Comment on above: Order Comment: NP. Laura FRANKEL ORDERED CBCD AND CMP ORDERED LIVER AND LIPID Performed By: #### L 500.4100, L100.0100, L500.2500, L500.3400 #### [facility] [address] [place], [address] RDW SD 42.4 fl Normal 35.1-43.9 [facility] Comment on above: Order Comment: NP. Laura FRANKEL ORDERED CBCD AND CMP ORDERED LIVER AND LIPID Performed By: #### L 500.4100, L100.0100, L500.2500, L500.3400 #### [facility] [address] [place], [address] WBC (Bld) [#/Vol] 7.2 10*3/uL Normal 4.4-11.[address] [facility] Comment on above: Order Comment: NP. Laura FRANKEL ORDERED CBCD AND CMP ORDERED LIVER AND LIPID Performed By: #### L 500.4100, L100.0100, L500.2500, L500.3400 #### [facility] [address], [address] Carbon dioxide measurementOr dered By: Aydin Cee on 07-31-2024 CO2 [Moles/Vol] 28.0 mmol/L 21.0-32.0 [facility] Chloride measurementOrdered By: Aydin Cee on 07-31-2024 Chloride [Moles/Vol] 107 mmol/L 98-107 [facility] Eosinophil percentageOrdered By: Aydin Cee on 07-31-2024 Eosinophils/100 WBC (Bld) 0.8 % 0-5 [facility] Erythrocyte distribution wid th ratioOrdered By: Aydin Cee on 07-31-2024 Erythrocyte distribution width (RBC) [Ratio] 13.6 % 11.6-14.6 [facility] Erythrocyte distribution wid th standard deviationOrdered By: Aydin Cee on 07-31-2024 Erythrocyte distribution width (RBC) [Entitic vol] 42.4 fL 35.1-43.9 [facility] Erythrocyte distribution width (RBC) [Ratio] 42.4 fl 35.1-43.9 [facility] Estimated glomerular filtrat ion rate (GFR) AmericanOrdered By: Aydin Cee on 07-31-2024 Estimated GFR (MDRD) Amer 74 mL/min >60 [facility] Comment on above: GFR Calc Glomerular filtration rate ( GFR) estimationOrdered By: Aydin Cee on 07-31-2024 Estimated GFR (MDRD) Non-Af Amer 61 mL/min >60 [facility] Comment on above: Non- GFR Calc GFR/1.73 sq M.predicted among non-blacks MDRD (S/P/Bld) [Vol rate/Area] 61 mL/min/{1.73_m2} >60 [facility] Comment on above: Non- GFR Calc Glucose measurementOrdered B y: Aydin Cee on 07-31-2024 Glucose [Mass/Vol] 124 mg/dL High 74-[address] [facility] Comment on above: Fasting Glucose resu lt from 100 to 125 mg/dL suggests IMPAIRED HOMEOSTASIS per A.D.A. criteria. Hematocrit Auto (Bld) [Volum e fraction]Ordered By: Aydin Cee on 07-31-2024 Hematocrit (Bld) [Volume fraction] 38.7 % 37-47 [facility] Hemoglobin measurementOrdere d By: Aydin Cee on 07-31-2024 Hemoglobin (Bld) [Mass/Vol] 12.5 g/dL 12.0-15.0 [facility] High density lipoprotein (HD L) measurementOrdered By: Aydin Cee on 07-31-2024 Cholesterol in HDL [Mass/Vol] 60 mg/dL >40 [facility] Comment on above: The drugs N-Acetylcy steine and Metamizole may falsely depress this assay. Reference Range HDL <40 mg/dL Low HDL Cholesterol HDL >or= 60 mg/dL High HDL Cholesterol Immature granulocytes/100 WB C Auto (Bld)Ordered By: Aydin Cee on 07-31-2024 Immature granulocytes/100 WBC (Bld) 0.100 % 0.0-0.9 [facility] Comment on above: IG% - Immature Granu locytes (promyelocytes, myelocytes and metamyelocytes) > 1% indicates that a LEFT SHIFT is Present. Laboratory - Chemistry and C hemistry - challengeOrdered By: Aydin Cee on 07-31-2024 AST [Catalytic activity/Vol] 15 U/L 15-37 [facility] Lipid Profileon 07-31-2024 Cholesterol [Mass/Vol] 149 mg/dL Normal 200 [facility] Comment on above: Order Comment: NP. Laura FRANKEL ORDERED CBCD AND CMPDR.COLEMAN ORDERED LIVER AND LIPID Result Comment: <200 mg/dL Desirable 200-240 mg/dL Borderline >240 mg/dL High Risk Performed By: #### L 500.4100, L100.0100, L500.2500, L500.3400 ####[facility] [id number] [place], [place], [id number] Cholesterol in HDL [Mass/Vol] 60 mg/dL Normal [facility] Comment on above: Order Comment: NP. Laura FRANKEL ORDERED CBCD AND CMP ORDERED LIVER AND LIPID Result Comment: The drugs N-Acetylcysteine and Metamizole may falsely depress this assay. Reference Range HDL <40 mg/dL Low HDL Cholesterol HDL >or= 60 mg/dL High HDL Cholesterol Performed By: #### L 500.4100, L100.0100, L500.2500, L500.3400 ####[facility] [id number] [place], [address] Cholesterol in LDL [Mass/Vol] 73 mg/dL Normal 0-130 [facility] Comment on above: Order Comment: NP. Laura FRANKEL ORDERED CBCD AND CMP.COLEMAN ORDERED LIVER AND LIPID Performed By: #### L 500.4100, L100.0100, L500.2500, L500.3400 ####[facility] [id number] [place], [address] Cholesterol in VLDL [Mass/Vol] 16 mg/dL Normal 5-40 [facility] Comment on above: Order Comment: NP. Laura FRANKEL ORDERED CBCD AND CMP ORDERED LIVER AND LIPID Performed By: #### L 500.4100, L100.0100, L500.2500, L500.3400 ####[facility] [id number] [place], [address] Triglyceride [Mass/Vol] 80 mg/dL Normal [facility] Comment on above: Order Comment: NP. Laura FRANKEL ORDERED CBCD AND CMP.COLEMAN ORDERED LIVER AND LIPID Result Comment: The drugs N-Acetylcysteine and Metamizole may falsely depress this assay. Serum Triglycerides Reference Interval Normal <150 mg/dL Borderline high 150 - 199 mg/dL High 200 - 499 mg/dL Very High > or = 500 mg/dL Performed By: #### L 500.4100, L100.0100, L500.2500, L500.3400 ####[facility] [id number] [place], [address] Liver Profileon 07-31-2024 Albumin [Mass/Vol] 3.6 g/dL Normal 3.2-5.[address] [facility] Comment on above: Order Comment: NP. Laura FRANKEL ORDERED CBCD AND CMP DRCINTIA ORDERED LIVER AND LIPID Performed By: #### L 500.4100, L100.0100, L500.2500, L500.3400 #### [facility] [address] [place], [address] ALK P 144 U/L High 45-117 [facility] Comment on above: Order Comment: NP. Laura FRANKEL ORDERED CBCD AND CMP ORDERED LIVER AND LIPID Performed By: #### L 500.4100, L100.0100, L500.2500, L500.3400 #### [facility] [address] [place], [address] ALT [Catalytic activity/Vol] 23 U/L Normal 13-56 [facility] Comment on above: Order Comment: NP. Laura FRANKEL ORDERED CBCD AND CMP ORDERED LIVER AND LIPID Performed By: #### L 500.4100, L100.0100, L500.2500, L500.3400 #### [facility] [address] [place], [address] AST [Catalytic activity/Vol] 15 U/L Normal 15-37 [facility] Comment on above: Order Comment: NP. Laura FRANKEL ORDERED CBCD AND CMP ORDERED LIVER AND LIPID Performed By: #### L 500.4100, L100.0100, L500.2500, L500.3400 #### [facility] [address] [place], [address] Bilirubin [Mass/Vol] 0.30 mg/dL Normal 0.20-1.00 [facility] Comment on above: Order Comment: NP. Laura FRANKEL ORDERED CBCD AND CMP ORDERED LIVER AND LIPID Result Comment: For patients on eltrombopag therapy, use of Dimension [place] TBIL is not recommended. Performed By: #### L 500.4100, L100.0100, L500.2500, L500.3400 #### [facility] [address] [place], [address] Bilirubin.direct [Mass/Vol] 0.11 mg/dL Normal 0.00-0.30 [facility] Comment on above: Order Comment: NP. Laura FRANKEL ORDERED CBCD AND CMP ORDERED LIVER AND LIPID Performed By: #### L 500.4100, L100.0100, L500.2500, L500.3400 #### [facility] [address] [place], [address] Globulin (S) [Mass/Vol] 3.5 g/dL Normal 2.2-4.[address] [facility] Comment on above: Order Comment: NP. Laura FRANKEL ORDERED CBCD AND CMP ORDERED LIVER AND LIPID Performed By: #### L 500.4100, L100.0100, L500.2500, L500.3400 #### [facility] [address] [place], [address] T PROT 7.1 g/dL Normal 6.4-8.2 [facility] Comment on above: Order Comment: NP. Laura FRANKEL ORDERED CBCD AND CMP ORDERED LIVER AND LIPID Performed By: #### L 500.4100, L100.0100, L500.2500, L500.3400 #### [facility] [address] [place], [address] Low density lipoprotein (LDL ) cholesterol measurementOrdered By: Aydin Cee on 07-31-2024 Cholesterol in LDL [Mass/Vol] 73 mg/dL 0-130 [facility] Lymphocytes Auto (Unsp spec) [#/Vol]Ordered By: Aydin Cee on 07-31-2024 Lymphocytes (Bld) [#/Vol] 1.60 10*3/uL 0.83-4.51 [facility] Lymphocytes/100 WBC Auto (Un sp spec)Ordered By: Aydin Cee on 07-31-2024 Lymphocytes/100 WBC (Bld) 22.3 % 19-41 [facility] MCV (mean corpuscular volume ) determinationOrdered By: Aydin Cee on 07-31-2024 MCV (RBC) [Entitic vol] 85.6 fL 81-99 [facility] Mean corpuscular hemoglobin (MCH) determinationOrdered By: Aydin Cee on 07-31-2024 MCH (RBC) [Entitic mass] 27.7 pg 27.0-32.0 [facility] Mean corpuscular hemoglobin concentration (MCHC) determinationOrdered By: Aydin Cee on 07-31-2024 MCHC (RBC) [Mass/Vol] 32.3 g/dL 32-36 [facility] Mean platelet volume determi nationOrdered By: Aydin Cee on 07-31-2024 Platelet mean volume (Bld) [Entitic vol] 9.9 fL 6.2-12.0 [facility] Monocyte percentageOrdered B y: Aydin Cee on 07-31-2024 Monocytes/100 WBC (Bld) 5.3 % 0-10 [facility] Neutrophil percentageOrdered By: Aydin Cee on 07-31-2024 Neutrophils/100 WBC (Bld) 70.9 % High 47-70 [facility] Nucleated red blood cell per centageOrdered By: Aydin Cee on 07-31-2024 Nucleated RBC/100 WBC (Bld) [Ratio] 0 % 0-5 [facility] Platelet countOrdered By: Aimee Cee on 07-31-2024 Platelets (Bld) [#/Vol] 244 10*3/uL 150-450 [facility] Potassium measurementOrdered By: Aydin Cee on 07-31-2024 Potassium [Moles/Vol] 4.0 mmol/L 3.5-5.1 [facility] RBC Auto (Bld) [#/Vol]Ordere d By: Aydin Cee on 07-31-2024 RBC (Bld) [#/Vol] 4.52 10*6/uL 4.2-5.4 [facility] Serum anion gap measurementO rdered By: Aydin Cee on 07-31-2024 Anion gap [Moles/Vol] 6 mmol/L 5-15 [facility] Serum globulin measurementOr dered By: Aydin Cee on 07-31-2024 Globulin (S) [Mass/Vol] 3.5 g/dL 2.2-4.2 [facility] Serum or plasma alanine thompson otransferase (ALT) measurementOrdered By: Aydin Cee on 07-31-2024 ALT [Catalytic activity/Vol] 23 U/L 13-56 [facility] Serum or plasma albumin albertina urement (mass/volume)Ordered By: Aydin Cee on 07-31-2024 Albumin [Mass/Vol] 3.6 g/dL 3.2-5.[address] [facility] Serum or plasma alkaline sonja sphatase measurementOrdered By: Aydin Cee on 07-31-2024 ALP [Catalytic activity/Vol] 144 U/L High 45-117 [facility] Serum or plasma calcium albertina urement (mass/volume)Ordered By: Aydin Cee on 07-31-2024 Calcium [Mass/Vol] 9.3 mg/dL 8.5-10.[address] [facility] Serum or plasma cholesterol measurement (mass/volume)Ordered By: Aydin Cee on 07-31-2024 Cholesterol [Mass/Vol] 149 mg/dL <200 [facility] Comment on above: <200 mg/dL Desirable 200-240 mg/dL Borderline >240 mg/dL High Risk Serum or plasma creatinine m easurement (mass/volume)Ordered By: Aydin Cee on 07-31-2024 Creatinine [Mass/Vol] 1.01 mg/dL 0.55-1.02 [facility] Comment on above: The validity of the calculated GFR & GFRAA in patients over 70 years has not been determined. Clinical correlation is essential. Serum or plasma urea nitroge n measurement (mass/volume)Ordered By: Aydin Cee on 07-31-2024 Urea nitrogen [Mass/Vol] 15 mg/dL 7-18 [facility] Sodium levelOrdered By: Aydin Cee on 07-31-2024 Sodium [Moles/Vol] 141 mmol/L 136-[address] [facility] Total proteinOrdered By: Victorino Cee on 07-31-2024 Protein [Mass/Vol] 7.1 g/dL 6.4-8.[address] [facility] Triglycerides measurementOrd ered By: Aydin Cee on 07-31-2024 Triglyceride [Mass/Vol] 80 mg/dL <[address] [facility] Comment on above: The drugs N-Acetylcy steine and Metamizole may falsely depress this assay.Serum Triglycerides Reference Interval Normal <150 mg/dL Borderline high 150 - 199 mg/dL High 200 - 499 mg/dL Very High > or = 500 mg/dL Very low density lipoprotein (VLDL) cholesterol measurementOrdered By: Aydin Cee on 07-31-2024 Very low density lipoprotein (VLDL) cholesterol measurement 16 mg/dL 5-40 [facility] VLDL Cholesterol 16 mg/dL 5-40 [facility] White blood cell (WBC) count Ordered By: Aydin Cee on 07-31-2024 WBC (Bld) [#/Vol] 7.2 10*3/uL 4.4-11.[address] [facility] CNOVon 07-12-2024 CNOV Office Visit (UCWSTR ) SYLVIA MANCUSO ([id number]) 1970 F [employer] Date Time Provider Department 07/12/24 10:45 AM CHARANJIT COKER [facility] During your visit today, we recorded the following information about you: Temperature Pulse Respiration Blood pressure 98.7 degrees 88/minute 16/minute 110/70 Weight 81.8 kg Charanjit Coker APRN.CNP 07/12/2024 11:53 AM Signed Subjective HPI HPI Sylvia Mancuso is a 54 year old female who presents today for CC of fall, hand injury 3 days ago. Has tried nothing for relief. Symptoms are worsened by rom of hand. .Patient presents with: Hand Injury: right x 3 days, fell PAST MEDICAL HISTORY Diagnosis Date Allergies Cardiac defibrillator in place Cough variant asthma Cyst of Bartholin's gland GERD (gastroesophageal reflux disease) History of COVID-19 IBS (irritable bowel syndrome) Pacemaker PMH - PAST MEDICAL HISTORY OF 06/14/2004 Cardiomyopathy PAST SURGICAL HISTORY Procedure Laterality Date APPENDECTOMY age 22 COLONOSCOPY FLX DX W/COLLJ SPEC WHEN PFRMD 03/11/2020 Colonoscopy ESOPHAGOGASTRODUODENO SCOPY TRANSORAL DIAGNOSTIC 03/11/2020 EGD IANDD OF BARTHOLINS GLAND ABSCESS 1999 ICD (ICD) 2010 LAPAROSCOPY SURG CHOLECYSTECTOMY 2005 Cholecystectomy, lap PAST SURGICAL HISTORY OF Left 2005 ankle /screws and plate PAST SURGICAL HISTORY OF ~2015 cervical spine surgery- unsure of what occured- states they tried to make the hole bigger on my spine ALLERGIES Carvedilol, Naproxen, Seasonal Allergies, and Vancomycin MEDICATIONS aspirin, enteric coated (ASPIRIN, ENTERIC COATED) 81 mg EC tablet Take 81 mg by mouth once daily. budesonide-formoterol (SYMBICORT) 160-4.5 mcg/actuation inhaler Inhale 2 Puffs as instructed two times a day. potassium chloride (K-TAB) 10 mEq tablet Take 10 mEq by mouth two times a day. atorvastatin (LIPITOR) 20 mg tablet clobetasol (TEMOVATE) 0.05 % cream APPLY CREAM TOPICALLY TWICE DAILY TO RASH FOR UP TO 2 WEEKS A MONTH NEEDED Zadby 14 DAY SENSOR kit as directed. furosemide (LASIX) 20 mg tablet Take 1 tablet by mouth every afternoon. OZEMPIC 0.25 mg or 0.5 mg (2 mg/3 mL) pen INJECT 0.25 MG SUBCUTANEOUSLY ONCE EVERY WEEK atenolol (TENORMIN) 25 mg tablet Take 1 tablet by mouth once daily. albuterol HFA (PROVENTIL HFA, VENTOLIN HFA) 90 mcg/actuation inhaler Inhale 2 Puffs as instructed every 4 hours as needed for wheezing/shortness of breath. omeprazole (PRILOSEC) 40 mg capsule Take 1 capsule by mouth once daily MULTIVITAMIN ORAL Take by mouth. benzonatate (TESSALON PERLE) 100 mg capsule Take 2 capsules by mouth three times a day as needed. (Patient not taking: Reported on 07/12/2024) venlafaxine ER (EFFEXOR XR) 150 mg 24 hr capsule Take 1 capsule by mouth once daily. FAMILY HISTORY Problem Relation Age of Onset Colon Cancer Mother Lipids Mother Stroke Maternal Grandmother Anesthesia Problems No Family History Blood Clots No Family History Clotting Disorder No Family History Social History Tobacco Use Smoking status: Never Smokeless tobacco: Never Vaping Use Vaping status: Never Used Substance Use Topics Alcohol use: No Drug use: No ROS Objective Blood pressure 110/70, pulse 88, temperature 37.1 ?C (98.7 ?F), resp. rate 16, weight 81.8 kg (180 lb 5.4 oz), SpO2 97%. Physical Exam Constitutional: General: She is not in acute distress. Appearance: She is not toxic-appearing or diaphoretic. HENT: Head: Normocephalic and atraumatic. Pulmonary: Effort: Pulmonary effort is normal. No accessory muscle usage or respiratory distress. Musculoskeletal: Hands: Neurological: Mental Status: She is alert and oriented to person, place, and time. ASSESSMENT/PLAN: 1. Injury of right hand, initial encounter - ICD9: 959.4, ICD10: S69.91XA -no bony abnormality noted on xray -Rest, Ice, Compression, Elevation discussed -discussed use of ibuprofen -follow up with primary care if symptoms persist/worsen in 10-14 days - XR HAND GENERAL 3V PA/LAT/OBL RIGHT IMPRESSION: No acute radiographic abnormalities seen in the right hand. Dictated by : MD Charanjit PEREIRA APRN.[employer] Allergies As of Date: 07/12/2024 Noted Allergy Reaction CARVEDILOL 08/15/2013 14 - Other: See Comments Comments: Nausea, headache. Intolerant to Generic only, can tolerate Coreg CR NAPROXEN 08/14/2010 4 - Hives SEASONAL ALLERGIES 05/01/2011 5 - Intolerance Comments: Cough VANCOMYCIN 07/10/2010 14 - Other: See Comments Comments: developed itching and redness , infusion was slowed down and tolerated Date Reviewed: 07/12/2024 Reviewed by: Vida Duran MA - Fully Assessed Reason for Visit: Hand Injury [1974] Cmt: right x 3 days, fell Primary Visit Diagnosis:Injury of right hand, initial encounter [S69.91XA] Order(s):XR HAND GENERAL 3V PA/LAT/OBL RIGHT [[id number]] Order #: [id number] (more content not included)... Normal [facility] XR HAND 3V PA/LAT/OBL RTon 0 07-12-2024 XR HAND 3V PA/LAT/OBL RT * * *Final Report* * * DATE OF EXAM: Jul 12 2024 11:28AM WOX [id number] - XR HAND 3V PA/LAT/OBL RT / PROCEDURE REASON: Injury of right hand, initial encounter * * * * Physician Interpretation * * * * EXAM TITLE: XR HAND 3V PA/LAT/OBL RT EXAM DATE/TIME: 07/12/2024 11:28 AM COMPARISON: None. CLINICAL INDICATION/HISTORY: Injury TECHNIQUE: PA, lateral and oblique views of the right hand are presented. FINDINGS: No acute fractures or subluxations are noted. The joint spaces are well preserved. The mineralization of the bones is normal. There is no significant soft tissue swelling. IMPRESSION: No acute radiographic abnormalities seen in the right hand. Rn Transitional: PSCB Transcribe Date/Time: Jul 12 2024 11:28A Dictated by : PHOENIX MORGAN MD This examination was interpreted and the report reviewed and electronically signed by: PHOENIX MORGAN MD on Jul 12 2024 11:32AM EST [id number] Normal [facility] XR Hand - right PA and Later al and Obliqueon 07-12-2024 IMPRESSION: No acute radiographic abnormalities seen in the right hand. Rn Transitional: JUAN Transcribe Date/Time: Jul 12 2024 11:28A Dictated by : PHOENIX MORGAN MD This examination was interpreted and the report reviewed and electronically signed by: PHOENIX MORGAN MD on Jul 12 2024 11:32AM EST DIVISION OF RADIOLOGY * * *Final Report* * * DATE OF EXAM: Jul 12 2024 11:28AM WOX [id number] - XR HAND 3V PA/LAT/OBL RT / PROCEDURE REASON: Injury of right hand, initial encounter * * * * Physician Interpretation * * * * EXAM TITLE: XR HAND 3V PA/LAT/OBL RT EXAM DATE/TIME: 07/12/2024 11:28 AM COMPARISON: None. CLINICAL INDICATION/HISTORY: Injury TECHNIQUE: PA, lateral and oblique views of the right hand are presented. FINDINGS: No acute fractures or subluxations are noted. The joint spaces are well preserved. The mineralization of the bones is normal. There is no significant soft tissue swelling. DIVISION OF RADIOLOGY Provider, [facility] - 07/12/2024 * * *Final Report* * * DATE OF EXAM: Jul 12 2024 11:28AM WOX [id number] - XR HAND 3V PA/LAT/OBL RT / PROCEDURE REASON: Injury of right hand, initial encounter * * * * Physician Interpretation * * * * EXAM TITLE: XR HAND 3V PA/LAT/OBL RT EXAM DATE/TIME: 07/12/2024 11:28 AM COMPARISON: None. CLINICAL INDICATION/HISTORY: Injury TECHNIQUE: PA, lateral and oblique views of the right hand are presented. FINDINGS: No acute fractures or subluxations are noted. The joint spaces are well preserved. The mineralization of the bones is normal. There is no significant soft tissue swelling. IMPRESSION IMPRESSION: No acute radiographic abnormalities seen in the right hand. Rn Transitional: PSCB Transcribe Date/Time: Jul 12 2024 11:28A Dictated by : PHOENIX MORGAN MD This examination was interpreted and the report reviewed and electronically signed by: PHOENIX MORGAN MD on Jul 12 2024 11:32AM EST [facility] Radiology Study observation (narrative) [facility] XR Hand - right PA and Later al and ObliqueOrdered By: Ccf Provider on 07-12-2024 [facility] 6 Minute Walk Teston 025 6 Minute Walk Test y [facility] Pulmonary Services/Neurology [address] [place] [address] MR#: [id number] Acct: [id number] Name: SYLVIA MANCUSO Rep #: [id number] : 1970 54 From: Vincent Baeza DO Referring Dr: Meghan Barbour ALUMINUM SIDING APPLICATOR-C Status: REG CLI Location: PSN Date: Sex: F C PSN 6 Minute Walk Test 6 Minute Walk Test 6 Minute Walk Test: 6 Minute Walk Test PSN:6-Minute Walk Test Start: 06/27/24 08:36 Freq: Status: Active Protocol: RESP.6MINW Document 06/27/24 08:15 [facility] (Rec: 06/27/24 08:50 [facility] [id number]) 6 Minute Walk Test Date Performed 06/27/24 Time Performed 08:15 Height 5 ft Weight: 170 lb Weight in Pounds 170.[address]: Beau Assistive device used: None Pre-test Oxygen Delivery Method Room Air Pulse Ox (%) 97 Pulse Rate (60-100 beats/min) 88 Dyspnea Omid Scale (0-10) 0.5 Exertion Omid Scale (6-20) 6 1st minute Oxygen Delivery Method Room Air Pulse Ox (%) 99 Pulse Rate (60-100 beats/min) 94 2nd minute Oxygen Delivery Method Room Air Pulse Ox (%) 98 Pulse Rate (60-100 beats/min) 104 H 3rd minute Oxygen Delivery Method Room Air Pulse Ox (%) 98 Pulse Rate (60-100 beats/min) 109 H 4th minute Oxygen Delivery Method Room Air Pulse Ox (%) 99 Pulse Rate (60-100 beats/min) 108 H Dyspnea Omid Scale (0-10) 3 Number of Rests Taken 1 Reported Symptoms Dizziness 5th minute Dyspnea Omid Scale (0-10) 3 Number of Rests Taken 1 Reported Symptoms Dizziness 6th minute Dyspnea Omid Scale (0-10) 3 Number of Rests Taken 1 Reported Symptoms Dizziness Post-test Oxygen Delivery Method Room Air Pulse Ox (%) 100 Pulse Rate (60-100 beats/min) 87 Full Laps Walked 15 Partial Lap, Number of Tiles Walked 0 Total Distance Walked (ft) 885 06/27/24 08:42 Cardiopulmonary Services by Marilou Greenfield Pt was tolerating walk well until start of minute 4. Pt stated she was feeling dizzy and S.O.B. Pt was stopped and helped to wall to lean on. Pt continued to state she was dizzy through remainder of time so walk was not resumed. Pt was help by this therapist and another PROFESSOR OF BIOSTATISTICS to the PFT lab to sit. Pt continued to C/O dizziness and chest tightness. Pt saturation was 99 - 1oo% and had never fell below 97% during or post walk. Pt was asked if she had a rescue inhaler. Pt stated she did but did not have it with her. Pt remained in room with this therapist for another 10 minutes until she felt she was no longer dizzy and was safe to leave. Initialized on 06/27/24 08:42 - END OF NOTE Interpretation Interpretation: The patient ambulated 885 feet over the course of 4 minutes beginning on room air without assistive devices. Respiratory therapy reported that the patient was unable to complete testing beyond 4 minutes due to shortness of breath and dizziness. Pretesting oxygen saturation was noted to be 97% on room air. With ambulation, the jonatan oxygen saturation was 98%. There was no significant exertional oxygen desaturation. Recommendations Recommendations: There is no indication for the use of supplemental oxygen at this time. 07/03/24 1036 Date Vincent Baeza DO CC: Date Dictated: 07/03/24 1035 Date Transcribed: 07/03/241034 Rn Transitional: Dr. Vincent Baeza DO Signed Normal [facility] Echo Completeon 06-16-2024 Echo Complete [facility] Cardiovascular Services [address] [place] [address] Echo Complete 06/16/24 1357 MR#: [id number] Acct: [id number] Name: SYLVIA MANCUSO Rep #: [id number] : 1970 54 From: Natalio Berkowitz MD Attending Dr: Aydin Cee NP-C Status: REG CLI Ordering Dr: Aydin Cee ALUMINUM SIDING APPLICATOR ALUMINUM SIDING APPLICATOR-C Date: 06/16/24 Location: [facility] Sex: F C Admitted: Reason For Study: CHF Procedure This was a 2D Doppler, Color Flow transthoracic echocardiogram. Exam performed in department. Left Ventricle Normal LV size. The estimated ejection fraction is 55 %. No evidence for diastolic dysfunction. No regional wall motion abnormalities noted. Right Ventricle ICD or pacer leads identified within the right ventricle. Normal RV size. Normal systolic function. Atria The left and right atria are normal. ICD or pacer leads identified within the right atrium. Mitral Valve The mitral valve is structurally normal. No prolapse or stenosis seen. Trivial mitral valve insufficiency. Tricuspid Valve Normal tricuspid valve. Trivial tricuspid valve insufficiency. Unable to estimate RV systolic pressure due to insufficient tricuspid regurgitant envelope. Aortic Valve Trisinus/trileaflet aortic valve. Trivial aortic valve insufficiency. Pulmonic Valve Normal pulmonic valve. Trivial pulmonic valve insufficiency. Great Vessels Normal aortic root. Pericardium/Pleural No pericardial effusion. MMode/2D Measurements Calculations LVIDd: 3.7 cm IVSd: 1.0 cm LVOT diam: 1.7 cm LVIDs: 2.7 cm LVPWd: 0.92 cm LVOT area: 2.3 cm2 RVDd: 3.4 cm FS: 26.8 % Ao root diam: 2.4 cm LAV(MOD-bp): 20.0 ml LVAd ap4: 23.2 cm2 LAV(MOD-bp) Indexed: 10.8 ml/m2 LVLd ap4: 7.7 cm LAV(MOD-sp2): 23.0 ml EDV(MOD-sp4): 64.2 ml LAV(MOD-sp4): 15.1 ml EDV(sp4-el): 59.8 ml LVAs ap4: 12.3 cm2 LVLs ap4: 6.2 cm ESV(MOD-sp4): 23.0 ml ESV(sp4-el): 20.8 ml EF(MOD-sp4): 64.3 % EF(sp4-el): 65.1 % SV(MOD-sp4): 41.3 ml SV(sp4-el): 38.9 ml LA A4 area: 9.0 cm2 SI(MOD-sp4): 22.4 ml/m2 LA dimension(2D): 2.6 cm RA A4 area: 7.2 cm2 Time Measurements MV dec time: 0.15 sec Doppler Measurements Calculations MV E max catalino: 59.6 cm/sec Lat Peak E' Catalino: 9.1 cm/sec Med Peak E' Catalnio: 8.0 cm/sec MV A max catlaino: 53.3 cm/sec E/E' lat: 6.6 E/E' med: 7.4 MV E/A: 1.1 MV V2 max: 70.1 cm/sec Ao V2 max: 116.0 cm/sec MV max P.0 mmHg MV dec slope: 408.0 cm/sec2 Ao max P.4 mmHg MV V2 mean: 47.3 cm/sec Ao V2 mean: 80.0 cm/sec MV mean P.0 mmHg Ao mean P.9 mmHg MV V2 VTI: 16.9 cm Ao V2 VTI: 23.1 cm AV (velocity ratio): 0.85 MVA(VTI): 2.7 cm2 MELE(I,D): 2.0 cm2 MELE(V,D): 2.0 cm2 LV V1 max: 102.8 cm/sec SV(LVOT): 45.1 ml PA V2 max: 96.8 cm/sec LV V1 max P.2 mmHg PA V2 mean: 70.1 cm/sec LV V1 mean P.4 mmHg LV V1 mean: 72.4 cm/sec LV V1 VTI: 19.6 cm ECHO/Echo Complete Interpretation Summary The estimated ejection fraction is 55 %. No evidence for diastolic dysfunction. Trivial aortic valve insufficiency. Ordering Physician: Aydin Cee Referring Physician: Aydin Cee Performed By: Rupa Johnson RCS 06/22/24830 Date Natalio Berkowitz MD CC: ALUMINUM SIDING APPLICATOR-C Aydin Cee; Dr. Bhavana Rodríguez MD Date Dictated: 06/16/24 1357 Date Transcribed: 06/22/24830 Rn Transitional: Signed Normal [facility] Hemoglobin A1con 06-01-2024 HbA1c (Bld) [Mass fraction] 6.0 % High 3.8-5.6 [facility] Comment on above: Result Comment: Norm al < 5.7 % Prediabetic 5.7 - 6.4 % Diabetic >or= 6.5 % Please note range changes. Performed By: #### L [id number] ####[facility] [address] [place], [address] Hemoglobin A1c percentageOrd ered By: Bhavana Rodríguez on 06-01-2024 HbA1c (Bld) [Mass fraction] 6.0 % High 3.8-5.6 [facility] Comment on above: Normal < 5.7 % Predi abetic 5.7 - 6.4 % Diabetic >or= 6.5 % Please note range changes. Pulmonary Visit Reporton Pulmonary Visit Report [facility] [place] [address] [place] [address] OFFICE VISIT Date of Service: 05/31/24 MR#: [id number] Acct: [id number] Name: SYLVIA MANCUSO Rep #: [id number] : 1970 Provider: Meghan Barbour NP Age/Sex: 54/F Location: [facility] Status: Signed Assessment and Plan Assessment and Plan (1) Asthma: Status: Chronic Qualifiers: Asthma complication type: uncomplicated Asthma persistence: persistent Asthma severity: moderate Qualified Code(s): J45.40 - Moderate persistent asthma, uncomplicated Plan: I am concerned that her asthma has been uncontrolled with a history of recent exacerbation, clinical presentation, and lack of use of ICS/LABA therapy. I do believe that postnasal drainage could be contributing to her respiratory symptoms but him also concerned that there is cardiovascular involvement as well. I discussed these concerns with Aydin Cee, Cardiology [employer] today. He plans to call the patient. NIOX is within normal limits today. I have recommended that Symbicort be discontinued and Breo be initiated. The use and potential side effects were reviewed with patient today. The patient understands that good oral hygiene is warranted to prevent thrush. I believe that this will help her be more compliant with therapy as it is a once daily dosing. I have asked for her to begin Claritin 10 mg, 1 tablet daily, OTC for the sinus drainage. I have discussed the importance of strict adherence to this regimen until it can be reassessed at this practice. I have recommended a PFT and 6-minute walk test on follow-up in 6 weeks. Contact the office with any new or worsening symptoms in the meantime. (2) Atypical chest pain: Status: Chronic Plan: Chest pain associated with dizziness and shortness of breath does continue. I do not believe that this is due to pulmonary hypertension as her last echocardiogram showed a RSVP of 28 mmHg. I plan to reassess her symptoms on follow-up and have also recommended that she follow-up with cardiology. (3) Congestive heart failure (CHF): Status: Chronic Qualifiers: Heart failure chronicity: chronic Heart failure type: diastolic Qualified Code(s): I50.32 - Chronic diastolic (congestive) heart failure Plan: Complicates exam, plan, care and prognosis. Orders: Orders NIOX Today J45.40 - Moderate persistent asthma, uncomplicated Pulmonary Function Test (Comp) Today J45.40 - Moderate persistent asthma, uncomplicated Simple Pulmonary Exercise Test Today J45.40 - Moderate persistent asthma, uncomplicated Medications: New fluticasone furoate-vilanterol 200-25 mcg/dose (Breo Ellipta) 1 inh inhalation Q24H 60 ea 2RF Discontinued budesonide-formoterol 160-4.5 mcg/actuation (Symbicort) administer with spacer, rinse mouth after each use Discontinued Reason: Order Changed 2 puffs inhalation BID 1 ea 11RF Plan Details Follow Up: 6 Weeks (LMR) HPI HPI Comments Details: This 54-year-old female patient presents to the office today for follow-up of her asthma. She is ambulatory and on room air. She reports a bad cough a couple of months ago and needed to go to urgent care in which she was prescribed prednisone. The prednisone was effective. She has not remained compliant with Symbicort, 2 puffs twice daily along with a spacer. In the past she has received benefit from this inhaler but does not like to use all these medications . She has not required the use of albuterol. She reports that she is using Lasix 20 mg once daily in the morning. She indicates that she does feel the medication wear off in the afternoon as there is less urination and more fluid retention as the day goes on. She reports that she has shortness of breath with exertion. She reports that this has not accelerated but continues to be present. She does have a cough with chest congestion but is unable to expectorate sputum. She denies chest tightness, chest palpitations. She does report chest pain which occurs on occasion. At last visit she did follow-up with cardiology and an EKG was performed. She reports that lisinopril has been held since March due to dizziness. She has had a couple of episodes of dizziness which can last up to 2 hours. She has noticed her voice becoming hoarse at times even without the use of ICS/LABA. She does report that her acid reflux is controlled with use of omeprazole. She has not had a laryngoscopy. She is not reporting fever, chills or body aches. She does experience sinus congestion and PND. In the past she has tried Claritin without benefit. If you recall, she is a lifelong never smoker. She has achieved significant weight loss, 30 pounds with prudent dieting. She has a history of COVID and at one point she was told that her cough was from her history of COVID. Today during examination while producing fo (more content not included)... Normal [facility] Ankle Brachial Indexon 03-21 Ankle Brachial Index [facility] Cardiovascular Services [address] [place] [address] Ankle Brachial Index 10/08/24 1506 MR#: [id number] Acct: [id number] Name: SYLVIA MANCUSO Rep #: [id number] : 1970 54 From: Mainor Pedraza MD Attending Dr: Cyndi Elizondo, ALUMINUM SIDING APPLICATOR-C Status: REG C Ordering Dr: Cyndi Elizondo ALUMINUM SIDING APPLICATOR ALUMINUM SIDING APPLICATOR-C Date: 03/21/24 Location: [facility] Sex: F C Admitted: Reason For Study: COLD EXTREMITIES Procedure A bilateral lower extremity continuous wave Doppler with analog waveform analysis and ankle brachial indexes. Left Segmental Pressures Left brachial= 97mmHg. Left posterior tibial artery = 136mmHg. Left dorsalis pedis artery = 119mmHg. The left posterior tibial artery waveforms are triphasic. The left dorsalis pedis waveforms are triphasic. Right Segmental Pressures Right brachial= 101mmHg. Right posterior tibial artery = 141mmHg. Right dorsalis pedis artery = 125mmHg. The right posterior tibial artery waveforms are triphasic. The right dorsalis pedis waveforms are triphasic. Indices The right resting ankle brachial index is 1.40. The right ankle brachial index by the posterior tibial artery is 1.40. The right ankle brachial index by the dorsalis pedis is 1.24. The left resting ankle brachial index is 1.35. The left ankle brachial index by the posterior tibial artery is 1.35. The left ankle brachial index by the dorsalis pedis is 1.18. VL/Ankle Brachial Index Interpretation Summary Right MICHAEL 1.4, normal. Doppler/PVR waveforms of the right ankle normal at rest. Left MICHAEL 1.35, normal. Doppler/PVR waveforms of the left ankle normal at rest. Ordering Physician: Cyndi Elizondo Referring Physician: Bhavana Rodríguez Performed By: Jolene Vaughan T, RDCS 03/21/24 1650 Date Mainor Pedraza MD CC: YOGESH Elizondo; Dr. Bhavana Rodríguez MD Date Dictated: 03/21/24 1506 Date Transcribed: 03/21/241649 Rn Transitional: Signed Normal [facility] Abdomen/Pelvis without Conto n 03-18-2024 Abdomen/Pelvis without Cont [facility] Imaging Services [address] [place], [place] [address] Abdomen/Pelvis without Cont MR#: [id number] Acct: [id number] Name: SYLVIA MANCUSO Rep #: [id number] : 1970 F 54 From: Mandeep Vazquez MD PCP: Dr. Bhavana Rodríguez MD Status: REG ER Study: Abdomen/Pelvis without Cont Date of Exam: 11/04 Exam# [id number] Ordering Dr: Tr Quintanilla DO [id number] INDICATION: Bilateral flank pain, history of cholecystectomy and appendectomy EXAMINATION: CT ABDOMEN AND PELVIS WITHOUT CONTRAST - CT Abdomen And Pelvis W/O Contrast Injection TECHNIQUE: Helically acquired images were obtained of the abdomen and pelvis without oral or IV contrast. A radiation dose optimization technique was used for this scan. IV Contrast dosage and agent: None. Oral contrast: None. COMPARISON: 04/12/2023 __ FINDINGS: LOWER CHEST: Lung bases are clear. Stable left-sided AICD lead along the periphery of the left chest. LIVER: Homogeneous. No focal mass. GALLBLADDER AND BILIARY TREE: Cholecystectomy. No intra- or extrahepatic biliary ductal dilation. PANCREAS: No focal cystic or solid mass. SPLEEN: Normal size without focal cystic or solid mass. ADRENAL GLANDS: No nodules. KIDNEYS AND URETERS: No nephrolithiasis or hydronephrosis. PERITONEUM: No ascites or free air. BOWEL: Prior appendectomy changes. No stomach or bowel distension. Diffusely increased colonic fecal burden. No focal inflammatory bowel wall changes. LYMPH NODES: No enlarged mesenteric or retroperitoneal lymph nodes. VESSELS: Aorta is non-dilated. URINARY BLADDER: Unremarkable. REPRODUCTIVE ORGANS: No pelvic masses. BONES: No acute or aggressive abnormality. CT/Abdomen/Pelvis without Cont IMPRESSION: No acute findings in the abdomen or pelvis. Colonic fecal burden consistent with clinical constipation. Electronically Signed: Mandeep Vazquez MD at 16:58 EDT , CC: Dr. Bhavana Rodríguez MD; Dr. Tr Quintanilla DO Rn Transitional: Signed Normal [facility] Basic Metabolic Profile (BMP )on 03-18-2024 BUN/CRE 19.8 RATIO Normal - [facility] Comment on above: Performed By: #### L 100.0100, L500.2500 #### [facility] [address] [place], [address] CA,Total 9.0 mg/dL Normal 8.5-10.1 [facility] Comment on above: Performed By: #### L 100.0100, L500.2500 #### [facility] [address] [place], [address] Chloride [Moles/Vol] 107 mmol/L Normal 98-107 [facility] Comment on above: Performed By: #### L 100.0100, L500.2500 #### [facility] [address] [place], [address] CO2 [Moles/Vol] 21.0 mmol/L Normal 21.0-32.0 [facility] Comment on above: Performed By: #### L 100.0100, L500.2500 #### [facility] [address] [place], [address] Creatinine [Mass/Vol] 0.76 mg/dL Normal 0.55-1.02 [facility] Comment on above: Result Comment: The validity of the calculated GFR GFRAA in patients over 70 years has not been determined. Clinical correlation is essential. Performed By: #### L 100.0100, L500.2500 #### [facility] [address] [place], [address] ECRCL 86.36 ml/min Normal [facility] Comment on above: Performed By: #### L 100.0100, L500.2500 #### [facility] [address] [place], [address] EST GFR - AA 103 mL/min Normal >60 [facility] Comment on above: Result Comment: Afri can Prydeinig GFR Calc Performed By: #### L 100.0100, L500.2500 #### [facility] [address] [place], [address] GAP 6 Normal 5-15 [facility] Comment on above: Performed By: #### L 100.0100, L500.2500 #### [facility] [address] [place], [address] GFR/1.73 sq M.predicted among non-blacks MDRD (S/P/Bld) [Vol rate/Area] 85 mL/min/{1.73_m2} Normal >60 [facility] Comment on above: Result Comment: Non- GFR Calc Performed By: #### L 100.0100, L500.2500 #### [facility] [address] [place], [address] Glucose [Mass/Vol] 97 mg/dL Normal 74-[address] [facility] Comment on above: Performed By: #### L 100.0100, L500.2500 #### [facility] [address] [place], [address] Potassium [Moles/Vol] 4.4 mmol/L Normal 3.5-5.1 [facility] Comment on above: Performed By: #### L 100.0100, L500.2500 #### [facility] [address] [place], [address] Sodium [Moles/Vol] 134 mmol/L Low 136-[address] [facility] Comment on above: Performed By: #### L 100.0100, L500.2500 #### [facility] [address] [place], [address] Urea nitrogen [Mass/Vol] 15 mg/dL Normal 7-18 [facility] Comment on above: Performed By: #### L 100.0100, L500.2500 #### [facility] [address] [place], [address] CBC W/Diff, Automatedon 10-0 5-2024 Absolute Lymph 2.72 X10 3/uL Normal 0.83-4.51 [facility] Comment on above: Performed By: #### L 100.0100, L500.2500 #### [facility] [address] [place], [address] Absolute Neut 7.0 X10 3/uL Normal 2.0-7.7 [facility] Comment on above: Performed By: #### L 100.0100, L500.2500 #### [facility] [address] [place], [address] Basophils/100 WBC (Bld) 0.5 % Normal 0-1 [facility] Comment on above: Performed By: #### L 100.0100, L500.2500 #### [facility] [address] [place], [address] Eosinophils/100 WBC (Bld) 1.6 % Normal 0-5 [facility] Comment on above: Performed By: #### L 100.0100, L500.2500 #### [facility] [address] [place], [address] Erythrocyte distribution width (RBC) [Ratio] 13.4 % Normal 11.6-14.6 [facility] Comment on above: Performed By: #### L 100.0100, L500.2500 #### [facility] [address] [place], [address] Hematocrit (Bld) [Volume fraction] 40.2 % Normal 37-47 [facility] Comment on above: Performed By: #### L 100.0100, L500.2500 #### [facility] [address] [place], [address] Hemoglobin (Bld) [Mass/Vol] 12.8 g/dL Normal 12.0-15.0 [facility] Comment on above: Performed By: #### L 100.0100, L500.2500 #### [facility] [address] [place], [address] IG% 0.400 Normal 0.0-0.9 [facility] Comment on above: Result Comment: IG% - Immature Granulocytes (promyelocytes, myelocytes and metamyelocytes) > 1% indicates that a LEFT SHIFT is Present. Performed By: #### L 100.0100, L500.2500 #### [facility] [address] [place], [address] Lymphocytes/100 WBC (Bld) 25.6 % Normal 19-41 [facility] Comment on above: Performed By: #### L 100.0100, L500.2500 #### [facility] [address] [place], [address] MCH (RBC) [Entitic mass] 27.4 pg Normal 27.0-32.0 [facility] Comment on above: Performed By: #### L 100.0100, L500.2500 #### [facility] [address] [place], [address] MCHC (RBC) [Mass/Vol] 31.8 g/dL Low 32-36 [facility] Comment on above: Performed By: #### L 100.0100, L500.2500 #### [facility] [address] [place], [address] MCV (RBC) [Entitic vol] 85.9 fL Normal 81-99 [facility] Comment on above: Performed By: #### L 100.0100, L500.2500 #### [facility] [address] [place], [address] Monocytes/100 WBC (Bld) 6.1 % Normal 0-10 [facility] Comment on above: Performed By: #### L 100.0100, L500.2500 #### [facility] [address] [place], [address] Neutrophils/100 WBC (Bld) 65.8 % Normal 47-70 [facility] Comment on above: Performed By: #### L 100.0100, L500.2500 #### [facility] [address] [place], [address] Nucleated RBC (Bld) [#/Vol] 0 10*3/uL Normal 0-5 [facility] Comment on above: Performed By: #### L 100.0100, L500.2500 #### [facility] [address] [place], [address] Platelet mean volume (Bld) [Entitic vol] 10.2 fL Normal 6.2-12.0 [facility] Comment on above: Performed By: #### L 100.0100, L500.2500 #### [facility] [address] [place], [address] Platelets (Bld) [#/Vol] 225 10*3/uL Normal 150-450 [facility] Comment on above: Performed By: #### L 100.0100, L500.2500 #### [facility] [address] [place], [address] RBC (Bld) [#/Vol] 4.68 10*6/uL Normal 4.2-5.4 [facility] Comment on above: Performed By: #### L 100.0100, L500.2500 #### [facility] [address] [place], [address] RDW SD 41.6 fl Normal 35.1-43.9 [facility] Comment on above: Performed By: #### L 100.0100, L500.2500 #### [facility] [address] [place], [address] WBC (Bld) [#/Vol] 10.6 10*3/uL Normal 4.4-11.0 [facility] Comment on above: Performed By: #### L 100.0100, L500.2500 #### [facility] [address] [place], [address] CNOVon 03-18-2024 CNOV Office Visit (UCTR ) SYLVIA MANCUSO ([id number]) 1970 F UPA Date Time Provider Department 03/18/24 2:45 PM CRYSTAL ASHFORD [facility] During your visit today, we recorded the following information about you: Temperature Pulse Respiration Blood pressure 97.8 degrees 81/minute 18/minute 103/70 Weight 74 kg Crystal Ashford APRN.[employer] 03/18/2024 3:28 PM Signed Came in with complaints of possible UTI. Patient says she noticed some blood in her urine. Upon exam patient has severe pain over the right and left flank. Did have a second provider come in and assessed the patient at this time patient is being referred to the emergency room for full evaluation due to 8 out of 10 pain bilaterally. Patient was okay with this care plan. Patient will take her self now. Allergies As of Date: 03/18/2024 Noted Allergy Reaction CARVEDILOL 08/15/2013 14 - Other: See Comments Comments: Nausea, headache. Intolerant to Generic only, can tolerate Coreg CR NAPROXEN 08/14/2010 4 - Hives SEASONAL ALLERGIES 05/01/2011 5 - Intolerance Comments: Cough VANCOMYCIN 07/10/2010 14 - Other: See Comments Comments: developed itching and redness , infusion was slowed down and tolerated Date Reviewed: 03/18/2024 Reviewed by: Viky Valdez LPN - Fully Assessed Reason for Visit: Urinary Problem [252] Cmt: Hematuria, flank pain urination pain x 2 days Primary Visit Diagnosis:Hematuria, unspecified type [R31.9] Other Visit Diagnosis:Flank pain [R10.9] Order(s):UA DIP, URINE (POC) [3920120] Order #: [id number] #:[id number] Prescriptions as of 03/18/2024 - aspirin, enteric coated (ASPIRIN, ENTERIC COATED) 81 mg EC tablet Take 81 mg by mouth once daily. - budesonide-formoterol (SYMBICORT) 160-4.5 mcg/actuation inhaler Inhale 2 Puffs as instructed two times a day. - potassium chloride (K-TAB) 10 mEq tablet Take 10 mEq by mouth two times a day. - benzonatate (TESSALON PERLE) 100 mg capsule Take 2 capsules by mouth three times a day as needed. - atorvastatin (LIPITOR) 20 mg tablet - clobetasol (TEMOVATE) 0.05 % cream APPLY CREAM TOPICALLY TWICE DAILY TO RASH FOR UP TO 2 WEEKS A MONTH NEEDED - FREESTYLE CARLI 14 DAY SENSOR kit as directed. - furosemide (LASIX) 20 mg tablet Take 1 tablet by mouth every afternoon. - OZEMPIC 0.25 mg or 0.5 mg (2 mg/3 mL) pen INJECT 0.25 MG SUBCUTANEOUSLY ONCE EVERY WEEK - atenolol (TENORMIN) 25 mg tablet Take 1 tablet by mouth once daily. - albuterol HFA (PROVENTIL HFA, VENTOLIN HFA) 90 mcg/actuation inhaler Inhale 2 Puffs as instructed every 4 hours as needed for wheezing/shortness of breath. - venlafaxine ER (EFFEXOR XR) 150 mg 24 hr capsule Take 1 capsule by mouth once daily. - omeprazole (PRILOSEC) 40 mg capsule Take 1 capsule by mouth once daily - MULTIVITAMIN ORAL Take by mouth. Problem List As Of Date 03/18/2024 Noted Resolved PRIM CARDIOMYOPATHY NEC [I42.8] 12/25/2008 Family History of Colon Cancer [Z80.0] 01/28/2009 Pain in joint, forearm [M25.539] 04/21/2010 07/17/2010 CHF (NYHA class II, ACC/AHA stage C) ([facility]) [I50*05/06/2010 Left bundle branch block [I44.7] 05/06/2010 Automatic implantable cardiac defibrillator in *06/12/2010 discharge planning [Z71.89] 07/10/2010 07/17/2010 Pre-op testing [Z01.818] 07/10/2010 07/17/2010 Leukocytosis [D72.829] 07/12/2010 07/17/2010 SUMMARY [V999.95] 07/12/2010 07/17/2010 Atelectasis/fluid overload [J98.11] 07/12/2010 07/17/2010 Biventricular cardiac pacemaker in situ [Z95.0] 07/24/2010 Pain in joint, pelvic region and thigh [M25.559]06/22/2011 Thoracic or lumbosacral neuritis or radiculitis* 2 Cervicalgia [M54.2] 10/02/2011 Lumbago [M54.50] 10/02/2011 Brachial neuritis or radiculitis [M54.12] 12/03/2011 Foraminal stenosis of cervical region [M48.02] 12/03/2011 Cervical spondylosis without myelopathy [M47.81*12/03/2011 Cervical spondylosis [M47.812] 01/13/2013 Right cervical radiculopathy [M54.12] 01/13/2013 H/O cardiomyopathy [Z86.79] 01/13/2013 Stress incontinence in female [N39.3] 12/31/2014 Unsteady gait [R26.81] 01/29/2015 Abnormality of gait [R26.9] 02/21/2015 Fall due to stumbling [W01.0XXA] 02/21/2015 Biventricular ICD (implantable cardioverter-def*09/13 Acute pain of left shoulder [M25.512] 10/06/2017 Pacemaker [Z95.0] Obesity, Class I, BMI 30-34.9 [E66.811] 10/29/2020 GERD without esophagitis [K21.9] 10/29/2020 Menorrhagia with irregular cycle [N92.1] 10/29/2020 Chronic RUQ pain [R10.11, G89.29] 10/29/2020 Cough variant asthma [J45.991] 10/02/2021 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 - hydrOXYzine HCl (ATARAX) 25 mg tablet (Discontinued) Reported on 03/01/2024 - lactul (more content not included)... Normal [facility] Emergency Department Summary on 03-18-2024 Emergency Department Summary [facility] Medical Records Department [address] [place] [id number] Emergency Department Summary 03/18/24 MR#: [id number] Acct: [id number] Name: SYLVIA MANCUSO Rep #: [id number] : 1970 54 From: Tr Quintanilla DO PCP: Dr. Bhavana Rodríguez MD Status:DEP ER Location: ED HPI HPI - Female History of Present Illness Chief Complaint: Complaint PFSH [facility] Medical History (Updated 03/18/24 @ 18:[address] Tr Quintanilla DO) Chest pain Diabetes Flank pain Hematuria Abnormal stress test Hyperlipidemia Elevated TSH Type 2 diabetes mellitus Diastolic dysfunction Dyspnea on exertion SOB (shortness of breath) Left bundle branch block Biventricular ICD (implantable cardioverter-defibril lator) in place (09/10/20) Abnormal PFTs Asthma with acute exacerbation Allergic rhinitis due to allergen Excessive daytime sleepiness Encounter for wellness examination in adult Encounter to establish care History of cardiomyopathy Heart disease A-fib Arthritis Asthma Back injury Lumbosacral radiculopathy at S1 DDD (degenerative disc disease), lumbar Bronchitis Contusion of lower back Contusion, hip COVID-19 Congestive heart failure (CHF) ICD (implantable cardioverter-defibril lator) in place Atypical chest pain Congestive heart failure (CHF) Nonischemic cardiomyopathy Home Medications ???Medication ???Instructions ???Recorded ???Last Taken ???Type atenolol 25 mg tablet (Tenormin) 25 mg PO QHS heart 04/26/18 08/17/22 History hydroxyzine HCl 25 mg tablet 25 mg PO Q6H PRN PRN Anxiety 05/02/19 Unknown History albuterol sulfate 1.25 mg/3 mL 2.5 mg (6 mL) inhalation TID-QID 07/28/22 08/18/22 Rx solution for nebulization PRN shortness of breath or wheezing 30 days #90 mL albuterol sulfate 90 mcg/actuation 1 - 2 puff inhalation Q4H PRN PRN 07/28/22 08/17/22 Rx aerosol inhaler Wheezing ##1 ipratropium bromide 21 mcg (0.03 2 spray intranasal BID-TID PRN 07/28/22 08/18/22 Rx %) nasal spray allergy symptoms #30 mL omeprazole 40 mg capsule,delayed 40 mg PO BID Gerd #180 caps 01/20/23 Unknown Rx release Reli On [place] glucometer 02/25/23 Unknown History aspirin 81 mg tablet,delayed 81 mg PO DAILY 05/13/23 Unknown History release (Adult Low Dose Aspirin) budesonide-formoterol HFA 160 2 puff inhalation BID #1 ea 08/04/23 Unknown Rx mcg-4.5 mcg/actuation aerosol inhaler (Symbicort) semaglutide 0.25 mg or 0.5 mg (2 0.25 mg (0.368 mL) subcut QWEEK #3 08/23/23 Unknown Rx mg/3 mL) subcutaneous pen injector mL (Ozempic) venlafaxine 150 mg 150 mg PO DAILY #90 caps 09/29/23 Unknown Rx capsule,extended release 24 hr furosemide 20 mg tablet 20 mg PO DAILY #90 tabs 11/09/23 Unknown Rx lisinopril 2.5 mg tablet 2.5 mg PO QHS BP #90 tabs 11/09/23 Unknown Rx potassium chloride 10 mEq 10 meq PO DAILY #90 tabs 11/09/23 Unknown Rx tablet,extended release flash glucose sensor (FreeStyle #1 ea 11/29/23 Unknown Rx Carli 14 Day Sensor kit) atorvastatin 20 mg tablet 20 mg PO DAILY #30 tabs 02/29/24 Unknown Rx sulfamethoxazole 800 1 tab PO BID 7 days #14 tabs 03/18/24 Unknown Rx mg-trimethoprim 160 mg tablet (Bactrim DS) Allergy/AdvReac Type Severity Reaction Status Date / Time naproxen Allergy Hives Verified 03/18/24 15:24 vancomycin Allergy Rash Verified 03/18/24 15:24 carvedilol AdvReac Upset Verified 03/18/24 15:24 Stomach Family History (Reviewed 03/03/24 @ 10:41 by Cyndi Elizondo ALUMINUM SIDING APPLICATOR, ALUMINUM SIDING APPLICATOR-C) Grandmother CVA (cerebral vascular accident) Mother Colon cancer High cholesterol Other Bladder cancer Cancer Diabetes Hypertension Surgical History History of neck surgery History of ankle surgery History of cholecystectomy History of appendectomy Status post biventricular pacemaker Social History (Reviewed 03/03/24 @ 10:41 by Cyndi Elizondo ALUMINUM SIDING APPLICATOR, ALUMINUM SIDING APPLICATOR-C) Smoking Status: Never smoker alcohol intake: never substance use type: does not use caffeine: Yes (sometimes) Type: carbonated beverages, coffee and tea EXAM Physical Exam Const Vital Signs: 03/18/24 15:24 03/18/24 15:27 03/18/24 16:27 Temperature 96 F L 96 F L 97.9 F Temperature Source Temporal Oral Oral Pulse Rate 83 83 74 Respiratory Rate 16 16 18 Blood Pressure 104/57 L 104/57 L 102/57 L Blood Pressure Mean 72 72 72 Pulse Ox 100 100 97 Oxygen Delivery Method Room Air Room Air Room Air 03/18/24 16:56 03/18/24 17:00 03/18/24 18:00 Temperature 97.9 F 98 F Temperature Source Oral Pulse Rate 71 68 66 Respiratory Rate 16 18 18 Blood Pressure 105/62 106/58 L 112/72 Blood Pressure Mean 76 74 85 Pulse Ox 99 98 99 Oxygen Delivery Method Room Air Room Air MDM MDM MDM Narrative Medical deci (more content not included)... Normal [facility] UA DIP, URINE (POC)on 2023 BILIRUBIN UA (POCT) Negative Negative [facility] CLARITY UA (POCT) Clear [facility] COLOR UA (POCT) Yellow [facility] GLUCOSE UA (POCT) Negative Negative mg/dL [facility] Hemoglobin Ql (U) Moderate Abnormal Negative [facility] Interpretation and review of laboratory results Abnormal [facility] KETONE UA (POCT) Negative Negative mg/dL [facility] LEUKOCYTES UA (POCT) Small Abnormal Negative [facility] NITRITE UA (POCT) Negative Negative [facility] PH UA (POCT) 6.0 4.5 - 8.0 [facility] Protein Ql (U) 30 mg/dL Abnormal Negative [facility] SPECIFIC GRAVITY UA (POCT) 1.020 1.005 - 1.030 [facility] UROBILINOGEN UA (POCT) 0.2 Clementine l E.U./dL [facility] Location:[address], [place], [place], [address] [place] [address] POINT OF CARE [facility] CNOVon 03-10-2024 CNOV Office Visit (UCWSTR ) ZACHMERTSYLVIA ([id number]) 1970 F UPA Date Time Provider Department 03/10/24 8:00 AM CHARANJIT COKER [facility] During your visit today, we recorded the following information about you: Temperature Pulse Respiration Blood pressure 98 degrees 87/minute 20/minute 108/74 Weight 74 kg Charanjit Coker APRN.CNP 03/10/2024 9:04 AM Signed Subjective HPI HPI Sylvia Mancuso is a 54 year old female who presents today for CC of cough. This started 2 weeks ago, seen in express care dx uri and OM on 03/01 finished antibiotics. Risk factors hx of asthma. nonsmoker. .Patient presents with: Cough: Chest congestion, x 2 weeks has worsened PAST MEDICAL HISTORY Diagnosis Date Allergies Cardiac defibrillator in place Cough variant asthma Cyst of Bartholin's gland GERD (gastroesophageal reflux disease) History of COVID-19 IBS (irritable bowel syndrome) Pacemaker PMH - PAST MEDICAL HISTORY OF 06/14/2004 Cardiomyopathy PAST SURGICAL HISTORY Procedure Laterality Date APPENDECTOMY age 22 COLONOSCOPY FLX DX W/COLLJ SPEC WHEN PFRMD 03/11/2020 Colonoscopy ESOPHAGOGASTRODUODENO SCOPY TRANSORAL DIAGNOSTIC 03/11/2020 EGD IANDD OF BARTHOLINS GLAND ABSCESS 2000 ICD (ICD) 2010 LAPAROSCOPY SURG CHOLECYSTECTOMY 2005 Cholecystectomy, lap PAST SURGICAL HISTORY OF Left 2005 ankle /screws and plate PAST SURGICAL HISTORY OF ~2015 cervical spine surgery- unsure of what occured- states they tried to make the hole bigger on my spine ALLERGIES Carvedilol, Naproxen, Seasonal Allergies, and Vancomycin MEDICATIONS aspirin, enteric coated (ASPIRIN, ENTERIC COATED) 81 mg EC tablet Take 81 mg by mouth once daily. budesonide-formoterol (SYMBICORT) 160-4.5 mcg/actuation inhaler Inhale 2 Puffs as instructed two times a day. potassium chloride (K-TAB) 10 mEq tablet Take 10 mEq by mouth two times a day. atorvastatin (LIPITOR) 20 mg tablet clobetasol (TEMOVATE) 0.05 % cream APPLY CREAM TOPICALLY TWICE DAILY TO RASH FOR UP TO 2 WEEKS A MONTH NEEDED [employer]ner[employer] 14 DAY SENSOR kit as directed. furosemide (LASIX) 20 mg tablet Take 1 tablet by mouth every afternoon. OZEMPIC 0.25 mg or 0.5 mg (2 mg/3 mL) pen INJECT 0.25 MG SUBCUTANEOUSLY ONCE EVERY WEEK benzonatate (TESSALON PERLES) 100 mg capsule Take 1 capsule by mouth three times a day as needed for cough. atenolol (TENORMIN) 25 mg tablet Take 1 tablet by mouth once daily. lisinopril 2.5 mg tablet Take 1 tablet by mouth once daily. (Patient taking differently: Take 2.5 mg by mouth once daily. On hold) albuterol HFA (PROVENTIL HFA, VENTOLIN HFA) 90 mcg/actuation inhaler Inhale 2 Puffs as instructed every 4 hours as needed for wheezing/shortness of breath. venlafaxine ER (EFFEXOR XR) 150 mg 24 hr capsule Take 1 capsule by mouth once daily. omeprazole (PRILOSEC) 40 mg capsule Take 1 capsule by mouth once daily MULTIVITAMIN ORAL Take by mouth. predniSONE (DELTASONE) 20 mg tablet Take 2 tablets by mouth once daily for 5 days. benzonatate (TESSALON PERLE) 100 mg capsule Take 2 capsules by mouth three times a day as needed. diclofenac, EC, (VOLTAREN) 75 mg EC tablet Take 1 tablet by mouth twice daily. For pain/inflammation. Take with food. (Patient not taking: Reported on 03/01/2024) gabapentin (NEURONTIN) 300 mg capsule Take 1 capsule by mouth daily at bedtime for 181 days. omeprazole (PRILOSEC) 40 mg capsule Take 1 capsule by mouth twice daily. (Patient not taking: Reported on 03/01/2024) linaclotide (LINZESS) 145 mcg capsule Take 1 capsule by mouth DAILY (6 AM). (Patient not taking: Reported on 03/01/2024) fluticasone-salmetero l HFA (ADVAIR HFA) 115-21 mcg/actuation inhaler Inhale 2 Puffs as instructed twice daily. (Patient not taking: Reported on 03/01/2024) albuterol (PROVENTIL) 2.5 mg /3 mL (0.083 %) nebulizer solution Use 3 mL via nebulizer every 4 hours as needed for wheezing/shortness of breath. Use over 5-15minutes. (Patient not taking: Reported on 03/01/2024) linaCLOtide (LINZESS) 290 mcg capsule Take 1 capsule by mouth DAILY (6 AM). (Patient not taking: Reported on 03/01/2024) dicyclomine (BENTYL) 10 mg capsule Take 1 capsule by mouth three times daily as needed. (Patient not taking: Reported on 03/01/2024) lactulose (DUPHALAC, CONSTULOSE) 20 gram/30 mL solution Take 30 mL by mouth once daily. (Patient not taking: Reported on 03/01/2024) hydrOXYzine HCl (ATARAX) 25 mg tablet Take 1 tablet by mouth every 6 hours as needed for Anxiety. (Patient not taking: Reported on 03/01/2024) FAMILY HISTORY Problem Relation Age of Onset Colon Cancer Mother Lipids Mother Stroke Maternal Grandmother Anesthesia Problems No Family History Blood Clots No Family History Clotting Disorder No Family History Social History Tobacco Use Smoking status: Never Smokeless tobacco: Never Vaping Use Vaping status: Never Used Substanc (more content not included)... Normal [facility] XR CHEST 2V FRONTAL/LATon XR CHEST 2V FRONTAL/LAT * * *Final Repor t* * * DATE OF EXAM: Mar 10 2024 8:27AM WOX [id number] - XR CHEST 2V FRONTAL/LAT / PROCEDURE REASON: Subacute cough * * * * Physician Interpretation * * * * EXAMINATION: CHEST RADIOGRAPH (2 VIEW FRONTAL and LATERAL) CLINICAL HISTORY: Subacute cough MQ: XC2_6 EXAM DATE/TIME: 03/10/2024 8:27 AM COMPARISON: Chest x-ray on 07/01/2021 RESULT: Lines, tubes, and devices: No change in position of left chest dual-chamber AICD leads (right atrial and right ventricle) and epicardial leads. Lungs and pleura: No consolidation. No lung mass. No pleural effusion. No pneumothorax. Cardiomediastinal silhouette: Normal cardiomediastinal silhouette. Bones and soft tissues: Unremarkable. IMPRESSION: No acute radiographic abnormality. Rn Transitional: JUAN Transcribe Date/Time: Mar 10 2024 8:27A Dictated by : PHOENIX MORGAN MD This examination was interpreted and the report reviewed and electronically signed by: PHOENIX MORGAN MD on Mar 10 2024 8:34AM EST [id number] Normal [facility] XR Chest PA and Lateralon IMPRESSION: No acute radiographic abnormality. Rn Transitional: [facility] Transcribe Date/Time: Mar 10 2024 8:27A Dictated by : PHOENIX MORGAN MD This examination was interpreted and the report reviewed and electronically signed by: PHOENIX MORGAN MD on Mar 10 2024 8:34AM EST DIVISION OF RADIOLOGY * * *Final Report* * * DATE OF EXAM: Mar 10 2024 8:27AM WOX [id number] - XR CHEST 2V FRONTAL/LAT / PROCEDURE REASON: Subacute cough * * * * Physician Interpretation * * * * EXAMINATION: CHEST RADIOGRAPH (2 VIEW FRONTAL & LATERAL) CLINICAL HISTORY: Subacute cough MQ: XC2_6 EXAM DATE/TIME: 03/10/2024 8:27 AM COMPARISON: Chest x-ray on 07/01/2021 RESULT: Lines, tubes, and devices: No change in position of left chest dual-chamber AICD leads (right atrial and right ventricle) and epicardial leads. Lungs and pleura: No consolidation. No lung mass. No pleural effusion. No pneumothorax. Cardiomediastinal silhouette: Normal cardiomediastinal silhouette. Bones and soft tissues: Unremarkable. DIVISION OF RADIOLOGY Provider, Sathya Schneider [facility] - 03/10/2024 * * *Final Report* * * DATE OF EXAM: Mar 10 2024 8:27AM WOX [id number] - XR CHEST 2V FRONTAL/LAT / PROCEDURE REASON: Subacute cough * * * * Physician Interpretation * * * * EXAMINATION: CHEST RADIOGRAPH (2 VIEW FRONTAL & LATERAL) CLINICAL HISTORY: Subacute cough MQ: XC2_6 EXAM DATE/TIME: 03/10/2024 8:27 AM COMPARISON: Chest x-ray on 07/01/2021 RESULT: Lines, tubes, and devices: No change in position of left chest dual-chamber AICD leads (right atrial and right ventricle) and epicardial leads. Lungs and pleura: No consolidation. No lung mass. No pleural effusion. No pneumothorax. Cardiomediastinal silhouette: Normal cardiomediastinal silhouette. Bones and soft tissues: Unremarkable. IMPRESSION IMPRESSION: No acute radiographic abnormality. Rn Transitional: [facility] Transcribe Date/Time: Mar 10 2024 8:27A Dictated by : PHOENIX MORGAN MD This examination was interpreted and the report reviewed and electronically signed by: PHOENIX MORGAN MD on Mar 10 2024 8:34AM EST [facility] Radiology Study observation (narrative) Amna gracia [facility] XR Chest PA and LateralOrder ed By: Ccf Provider on 03-10-2024 [facility] 12 Lead EKG performed by [facility] on 03-03-2024 12 Lead EKG performed by [facility] [address] [place] [address] 12 Lead EKG performed by [facility] 03/03/24 0811 MR#: [id number] Acct: [id number] Name: SYLVIA MANCUSO Rep #: [id number] : 1970 54 From: Cyndi Elizondo NP ALUMINUM SIDING APPLICATOR-C Attending Dr: ROBERT FarrellC Status: DEP A MB Ordering Dr: Cyndi Elizondo NP, NP-C Date: 03/03/24 Location: [facility] Sex: F C Admitted: B[facility]/12 Lead EKG performed by [facility] ECG Report Interpretation -----Electronic ventricular pacemaker Pacemaker ECG, No further analysis INSUFFICIENT DATAElectronically signed on 03/07/2024 at 14:38 by Maynor [employer] Software Version [id number] 03/07/24 1441 Date Cyndi Elizondo NP, NP-C CC: Dr. Bhavana Rodríguez MD Date Dictated: 03/03/24810 Date Transcribed: 03/03/24810 Rn Transitional: ESTHER Signed Normal [facility] Cardiology Visit Reporton Cardiology Visit Report [facility] [address] [place] [address] OFFICE VISIT Date of Service: 03/03/24 MR#: [id number] Acct: [id number] Name: SYLVIA MANCUSO Rep #: [id number] : 1970 Provider: YOGESH terrazas Age/Sex: 54/F Location: [facility] Status: Signed [facility] HPI History of Present Illness Details: This is a 54 year old lady who presents to the office today for a cardiovascular follow up visit. She had a coronary angiography done in March of 2023. It did not show any angiographic CAD. She has a history of diabetes mellitus. Her echocardiogram demonstrated a normal left ventricular systolic function, and stage II diastolic dysfunction. From a cardiac standpoint, the patient is doing well. She denies any palpitations. She does acknowledge chest pain. This is located midsternal. This can occur with exertion, and at rest. She describes this as a sharp pain. She denies SOB, Orthopnea, and PND. She does not have bleeding issues; no blood in urine, stool or nosebleeds. She does acknowledge fatigue. She denies myalgias, or claudication. She does not have edema, or sudden weight gain. She does have occasional lightheadedness. She denies dizziness, syncopal or near syncopal episodes, and headaches. Intake Vital Signs 02/11/24 07:32 03/03/24 10:25 03/03/24 10:27 Height 5 ft 5 in 5 ft 5 in 5 ft 5 in Weight: 160 lb BMI 26.6 BP 107/73 Blood Pressure Location Lt brachial Position Sitting Respiration 18 Pulse 76 Pulse Source Monitor Pulse Oximetry (%) 97 Intake Visit Reasons: CP (SEE NOTES FROM BENJA) Screwdown Operator Required: No Is patient in pain?: No Allergies naproxen Allergy (Verified 03/03/24 10:49) Hives vancomycin Allergy (Verified 03/03/24 10:49) Rash carvedilol Adverse Reaction (Verified 03/03/24 10:49) Upset Stomach Medications ???Medication ???Instructions ???Recorded ???Confirmed ???Type atenolol 25 mg tablet (Tenormin) 25 mg PO QHS heart 04/26/18 03/03/24 History hydroxyzine HCl 25 mg tablet 25 mg PO Q6H PRN PRN Anxiety 05/02/19 03/03/24 History albuterol sulfate 1.25 mg/3 mL 2.5 mg (6 mL) inhalation TID-QID 07/28/22 03/03/24 Rx solution for nebulization PRN shortness of breath or wheezing 30 days #90 mL albuterol sulfate 90 mcg/actuation 1 - 2 puff inhalation Q4H PRN PRN 07/28/22 03/03/24 Rx aerosol inhaler Wheezing ##1 ipratropium bromide 21 mcg (0.03 2 spray intranasal BID-TID PRN 07/28/22 03/03/24 Rx %) nasal spray allergy symptoms #30 mL omeprazole 40 mg capsule,delayed 40 mg PO BID Gerd #180 caps 01/20/23 03/03/24 Rx release Reli On [place] glucometer 02/25/23 02/11/24 History aspirin 81 mg tablet,delayed 81 mg PO DAILY 05/13/23 03/03/24 History release (Adult Low Dose Aspirin) budesonide-formoterol HFA 160 2 puff inhalation BID #1 ea 08/04/23 03/03/24 Rx mcg-4.5 mcg/actuation aerosol inhaler (Symbicort) semaglutide 0.25 mg or 0.5 mg (2 0.25 mg (0.368 mL) subcut QWEEK #3 08/23/23 03/03/24 Rx mg/3 mL) subcutaneous pen injector mL (Ozempic) venlafaxine 150 mg 150 mg PO DAILY #90 caps 09/29/23 03/03/24 Rx capsule,extended release 24 hr furosemide 20 mg tablet 20 mg PO DAILY #90 tabs 11/09/23 03/03/24 Rx lisinopril 2.5 mg tablet 2.5 mg PO QHS BP #90 tabs 11/09/23 03/03/24 Rx potassium chloride 10 mEq 10 meq PO DAILY #90 tabs 11/09/23 03/03/24 Rx tablet,extended release flash glucose sensor (FreeStyle #1 ea 11/29/23 02/11/24 Rx Carli 14 Day Sensor kit) atorvastatin 20 mg tablet 20 mg PO DAILY #30 tabs 02/29/24 03/03/24 Rx PFSH Medical History (Updated 03/03/24 @ 15:56 by Cyndi Elizondo ALUMINUM SIDING APPLICATOR, ALUMINUM SIDING APPLICATOR-C) Chest pain Diabetes Flank pain Hematuria Abnormal stress test Hyperlipidemia Elevated TSH Type 2 diabetes mellitus Diastolic dysfunction Dyspnea on exertion SOB (shortness of breath) Left bundle branch block Biventricular ICD (implantable cardioverter-defibril lator) in place (09/10/20) Abnormal PFTs Asthma with acute exacerbation Allergic rhinitis due to allergen Excessive daytime sleepiness Encounter for wellness examination in adult Encounter to establish care History of cardiomyopathy Heart disease A-fib Arthritis Asthma Back injury Lumbosacral radiculopathy at S1 DDD (degenerative disc disease), lumbar Bronchitis Contusion of lower back Contusion, hip COVID-19 Congestive heart failure (CHF) ICD (implantable cardioverter-defibril lator) in place Atypical chest pain Congestive heart failure (CHF) Nonischemic cardiomyopathy Surgical History (Reviewed 03/03/24 @ 10:41 by Cyndi Elizondo ALUMINUM SIDING APPLICATOR, ALUMINUM SIDING APPLICATOR-C) History of neck surgery History of ankle surgery History of cholecystectomy History of appendectomy Status post biventricular pacemaker Family History (Reviewed 03/03/24 @ 10:41 b (more content not included)... [facility] CNOVon 03-01-2024 CNOV Office Visit (UCWSTR ) SYLVIA MANCUSO ([id number]) 1970 F U[place] Date Time Provider Department 03/01/24 1:00 PM SHANA MARQUEZ [facility] During your visit today, we recorded the following information about you: Temperature Pulse Respiration Blood pressure 97.8 degrees 93/minute 18/minute 102/60 Weight 72.4 kg Shana Marquez APRN.[employer] 03/01/2024 1:20 PM Signed This note was created using BitWave. Subjective Sylvia Mancuso is a 54 year old female. Patient presents with cough for 1 week Nonsmoker. Denies hx of asthma or COPD Tried allergy medications with no relief Review of Systems Constitutional: Negative for chills and fever. HENT: Positive for congestion and ear pain. Negative for sore throat. Respiratory: Positive for cough and shortness of breath. Negative for wheezing. Objective BP 102/60 Pulse 93 Temp 36.6 ?C (97.8 ?F) Resp 18 Wt 72.4 kg (159 lb 9.8 oz) LMP 10/07/2020 SpO2 97% BMI 27.40 kg/m? Physical Exam Constitutional: General: She is not in acute distress. Appearance: Normal appearance. She is not toxic-appearing. HENT: Head: Normocephalic and atraumatic. Right Ear: Ear canal normal. A middle ear effusion is present. Tympanic membrane is erythematous. Tympanic membrane is not bulging. Left Ear: Ear canal normal. A middle ear effusion is present. Tympanic membrane is not erythematous or bulging. Nose: Congestion present. No rhinorrhea. Mouth/Throat: Pharynx: No oropharyngeal exudate or posterior oropharyngeal erythema. Eyes: Conjunctiva/sclera: Conjunctivae normal. Cardiovascular: Rate and Rhythm: Normal rate and regular rhythm. Heart sounds: Normal heart sounds. Pulmonary: Effort: Pulmonary effort is normal. Breath sounds: Normal breath sounds. Lymphadenopathy: Cervical: No cervical adenopathy. Neurological: Mental Status: She is alert. Assessment and Plan ASSESSMENT/PLAN: 1. Acute otitis media, right - ICD9: 382.9, ICD10: H66.91 (primary diagnosis) - Will begin treatment with as per antibiotic as written, see orders - Supportive care with plenty of fluids, rest, and analgesia prn. - Follow up in 3-5 days if symptoms persist or worsen. - AMOXICILLIN 875 MG TABLET 2. Viral URI with cough - ICD9: 465.9, ICD10: J06.9 - Discussed viral etiology and rationale for treatment. - Symptomatic treatment with prn analgesia - Supportive care with fluids and rest - Follow up in 3-5 days if symptoms persist or sooner if worsening of symptoms - BENZONATATE 100 MG CAPSULE KALIA Conley Leanne, APRN.CNP 03/01/2024 1:15 PM Signed [facility] PATIENT INFO COMMON COLD OVERVIEW The common cold is one of the most frequent illnesses in the [place]. Although most colds are mild and resolve within a short time period, colds cost billions of dollars per year, mostly due to lost time at work and school. COMMON COLD CAUSES The common cold is a group of symptoms caused by one of a large number of viruses. Rhinoviruses cause the greatest number of colds; there are more than 100 different varieties of rhinovirus. Most viruses cause a person to be ill only once. However, due to the large number of viruses, a person can have a cold multiple times throughout his or her lifetime. The average adult experiences two to three colds per year, while children average 8 to 12 colds per year. Colds are transmitted from [id number]. Less often, the virus can be transmitted by touching a surface. Direct contact -- People with colds typically carry the cold virus on their hands. The virus may remain alive on the skin and capable of infecting another person for at least two hours. Thus, if a sick person shakes someone's hand and that individual then touches his eye, nose, or mouth, the virus can be transmitted and later infect that person. Infection from particles on surfaces -- Some cold viruses can live on surfaces (such as a counter top, door handle, or phone) for several hours. Inhaling viral particles -- Droplets containing viral particles can be breathed, coughed, or sneezed into the air by a person with a cold. The virus can be transmitted to others if another person is standing close (a few feet) and the droplet touches that person?s eye, nose, or mouth. Covering the mouth while coughing or sneezing greatly reduces this risk. Most cold viruses are not spread by saliva. Thus, kissing itself is not likely to transmit the common cold, but close direct contact can. Colds are not caused by cold climates or being exposed to cold air. However, some types of virus cause more colds during certain seasons (eg, fall and winter versus spring). COMMON COLD SIGNS AND SYMPTOMS The common cold usually causes nasal congestion, runny nose, and sneezing. A sore throat may be present on the first day but usually resolves quickly. If a cough occurs, it (more content not included)... Normal [facility] Pulmonary Visit Reporton Pulmonary Visit Report [facility] Pulmonary Medicine of [address] [place] [address] OFFICE VISIT Date of Service: 02/11/24 MR#: [id number] Acct: [id number] Name: SYLVIA MANCUSO Rep #: [id number] : 1970 Provider: YOGESH Yousif Age/Sex: 54/F Location: [facility].PMW Status: Signed Assessment and Plan Assessment and Plan (1) Asthma: Status: Chronic Qualifiers: Asthma severity: moderate Asthma persistence: persistent Asthma complication type: uncomplicated Qualified Code(s): J45.40 - Moderate persistent asthma, uncomplicated Plan: Stable. NIOX procedure performed in the office today, returned within normal limits. This indicates that the patient does not require additional corticosteroids. She was provided with a spacer so she may resume her Symbicort. No change in medications, follow-up in 3 months. Contact the office with any new or worsening symptoms in the meantime. (2) Atypical chest pain: Status: Chronic Plan: Notified cardiology of her complaints. They will get an office visit scheduled with her. (3) Congestive heart failure (CHF): Status: Chronic Qualifiers: Heart failure type: diastolic Heart failure chronicity: chronic Qualified Code(s): I50.32 - Chronic diastolic (congestive) heart failure Plan: Complicates exam, plan, care and prognosis. Orders: Orders NIOX Today J45.40 - Moderate persistent asthma, uncomplicated Plan Details Follow Up: 3 Months ([facility]) HPI 6 M FU Chief Complaint: Chest discomfort HPI Comments Details: This patient presents to the office today for follow-up of her asthma complicated by congestive heart failure. She is ambulatory and currently on room air. She has not recently been seen in the ED or urgent care for any respiratory illness. She has not required any antibiotics or prednisone for any breathing problems. She is compliant with the use of Symbicort, 2 puffs twice daily. However, she admits that she has not taken in the past couple weeks because she needed a new spacer. She does notice that symptoms are a little worse when she has not been on Symbicort. When taking Symbicort she rinses her mouth out. She denies any medication side effect such as sore throat or thrush. She is not currently on the ipratropium bromide nasal spray. She has not required the use of albuterol. She is compliant with Lasix 20 mg daily. She has shortness of breath occasionally. It can be on exertion, such as walking up a flight of steps. It can randomly occur at rest. She has a nonproductive cough in the morning. She denies any hemoptysis. She has occasional chest discomfort. She states it is difficult to describe. She reports that sometimes it sharp and sometimes it still. Sometimes the chest discomfort can be exacerbated by deep breathing. She is not currently having the chest discomfort. She states that right now she would describe it more as a achiness. She denies any wheezing, or palpitations. She has not had any fever, chills or body aches. If you recall, she is a lifelong never smoker. Intake Vital Signs 07/13/23 13:59 10/21/23 08:15 01/27/24 08:04 02/11/24 07:32 Height 5 ft 5 in 5 ft 5 in 5 ft 5 in 5 ft 5 in Weight: 160 lb BMI 26.6 BP 95/61 Blood Pressure Location Rt brachial Position Sitting Respiration 18 Pulse 80 Pulse Source Monitor Temp 97.2 F L Temperature Source Temporal Artery Pulse Oximetry (%) 98 Oxygen Delivery Method room air Intake Visit Reasons: 6 M FU Screwdown Operator Required: No DME Vendor: n/a Accompanied by: Self Is patient in pain?: No Allergies naproxen Allergy (Verified 02/11/24 09:00) Hives vancomycin Allergy (Verified 02/11/24 09:00) Rash carvedilol Adverse Reaction (Verified 02/11/24 09:00) Upset Stomach Medications ???Medication ???Instructions ???Recorded ???Confirmed ???Type atenolol 25 mg tablet (Tenormin) 25 mg PO QHS heart 04/26/18 02/11/24 History hydroxyzine HCl 25 mg tablet 25 mg PO Q6H PRN PRN Anxiety 05/02/19 02/11/24 History albuterol sulfate 1.25 mg/3 mL 2.5 mg (6 mL) inhalation TID-QID 07/28/22 02/11/24 Rx solution for nebulization PRN shortness of breath or wheezing 30 days #90 mL albuterol sulfate 90 mcg/actuation 1 - 2 puff inhalation Q4H PRN PRN 07/28/22 02/11/24 Rx aerosol inhaler Wheezing ##1 ipratropium bromide 21 mcg (0.03 2 spray intranasal BID-TID PRN 07/28/22 02/11/24 Rx %) nasal spray allergy symptoms #30 mL omeprazole 40 mg capsule,delayed 40 mg PO BID Gerd #180 caps 01/20/23 02/11/24 Rx release Reli On [place] glucometer 02/25/23 02/11/24 History atorvastatin 20 mg tablet 20 mg PO DAILY #30 tabs 03/01/23 02/11/24 Rx aspirin 81 mg tablet,delayed 81 mg PO DAILY 05/13/23 02/11/24 History release (Adult Low Dose Aspirin) budesonide-formoterol HFA (more content not included)... Normal [facility] Hemoglobin A1con 01-27-2024 HbA1c (Bld) [Mass fraction] 5.5 % Normal 3.8-5.6 [facility] Comment on above: Order Comment: PER P T-DO BOTH DR [id number] TESTS Result Comment: Norm al < 5.7 % Prediabetic 5.7 - 6.4 % Diabetic >or= 6.5 % Please note range changes. Performed By: #### L [id number] ####[facility] [address] [place], [address] Lipid Profileon 01-27-2024 Cholesterol [Mass/Vol] 130 mg/dL Normal [facility] Comment on above: Order Comment: PER P T-DO BOTH DR LILIA VILLALOBOS ROOF-OTHER TESTS Result Comment: <200 mg/dL Desirable 200-240 mg/dL Borderline >240 mg/dL High Risk Performed By: #### L 500.3400, L500.4100 #### [facility] [address] [place], [address] Cholesterol in HDL [Mass/Vol] 46 mg/dL Normal [facility] Comment on above: Order Comment: PER P T-DO BOTH DR LILIA VILLALOBOS ROOF-OTHER TESTS Result Comment: The drugs N-Acetylcysteine and Metamizole may falsely depress this assay. Reference Range HDL <40 mg/dL Low HDL Cholesterol HDL >or= 60 mg/dL High HDL Cholesterol Performed By: #### L 500.3400, L500.4100 #### [facility] [address] [place], [address] Cholesterol in LDL [Mass/Vol] 50 mg/dL Normal 0-130 [facility] Comment on above: Order Comment: PER P T-DO BOTH DR LILIA VILLALOBOS ROOF-OTHER TESTS Performed By: #### L 500.3400, L500.4100 #### [facility] [address] [place], [address] Cholesterol in VLDL [Mass/Vol] 34 mg/dL Normal 5-40 [facility] Comment on above: Order Comment: PER P T-DO BOTH DR LILIA VILLALOBOS ROOF-OTHER TESTS Performed By: #### L 500.3400, L500.4100 #### [facility] [address] [place], [address] Triglyceride [Mass/Vol] 168 mg/dL Normal [facility] Comment on above: Order Comment: PER P T-DO BOTH DR LILIA RODRÍGUEZ-A1C ROOF-OTHER TESTS Result Comment: The drugs N-Acetylcysteine and Metamizole may falsely depress this assay. Serum Triglycerides Reference Interval Normal <150 mg/dL Borderline high 150 - 199 mg/dL High 200 - 499 mg/dL Very High > or = 500 mg/dL Performed By: #### L 500.3400, L500.4100 #### [facility] [address] [place], [address] Liver Profileon 01-27-2024 Albumin [Mass/Vol] 3.7 g/dL Normal 3.2-5.[address] [facility] Comment on above: Order Comment: PER P T-DO BOTH DR LILIA RODRÍGUEZ-A1C ROOF-OTHER TESTS Performed By: #### L 500.3400, L500.4100 #### [facility] [address] [place], [address] ALK P 129 U/L High 45-117 [facility] Comment on above: Order Comment: PER P T-DO BOTH DR LILIA RODRÍGUEZ-A1C ROOF-OTHER TESTS Performed By: #### L 500.3400, L500.4100 #### [facility] [address] [place], [address] ALT [Catalytic activity/Vol] 24 U/L Normal 13-56 [facility] Comment on above: Order Comment: PER P T-DO BOTH DR LILIA RODRÍGUEZ-A1C ROOF-OTHER TESTS Performed By: #### L 500.3400, L500.4100 #### [facility] [address] [place], [address] AST [Catalytic activity/Vol] 20 U/L Normal 15-37 [facility] Comment on above: Order Comment: PER P T-DO BOTH DR LILIA STEVENSNER-A1C ROOF-OTHER TESTS Performed By: #### L 500.3400, L500.4100 #### [facility] [address] [place], [address] Bilirubin [Mass/Vol] 0.30 mg/dL Normal 0.20-1.00 [facility] Comment on above: Order Comment: PER P T-DO BOTH DR LILIA LLAMASCHNER-A1C ROOF-OTHER TESTS Result Comment: For patients on eltrombopag therapy, use of Dimension [place] TBIL is not recommended. Performed By: #### L 500.3400, L500.4100 #### [facility] [address] [place], [address] Bilirubin.direct [Mass/Vol] 0.16 mg/dL Normal 0.00-0.30 [facility] Comment on above: Order Comment: PER P T-DO BOTH DR LILIA RODRÍGUEZ-A1C ROOF-OTHER TESTS Performed By: #### L 500.3400, L500.4100 #### [facility] [address] [place], [address] Globulin (S) [Mass/Vol] 3.3 g/dL Normal 2.2-4.[address] [facility] Comment on above: Order Comment: PER P T-DO BOTH DR LILIA RODRÍGUEZ-A1C ROOF-OTHER TESTS Performed By: #### L 500.3400, L500.4100 #### [facility] [address] [place], [address] T PROT 7.0 g/dL Normal 6.4-8.2 [facility] Comment on above: Order Comment: PER P T-DO BOTH DR RODRIGUES ANNE-A1C ROOF-OTHER TESTS Performed By: #### L 500.3400, L500.4100 #### [facility] [address] [place], [address] /Mike 01-27-2024 /MIKE.KAYLYNN [facility] [address] [place] [address] OFFICE VISIT Date of Service: 01/27/24 MR#: [id number] Acct: [id number] Name: SYLVIA MANCUSO Rep #: [id number] : 1970 Provider: Dr. Bhavana graff MD Age/Sex: 54/F Location: [facility].IMB Status: Signed Intake Vital Signs 10/21/23 08:15 01/27/24 08:04 Height 5 ft 5 in 5 ft 5 in Weight: 160 lb BMI 26.6 BP 100/68 Blood Pressure Location Lt brachial Position Sitting Respiration 14 Pulse 79 Pulse Source Monitor Temp 98.2 F Temp Source Temporal Pulse Oximetry (%) 96 Oxygen Delivery Method room air Intake Visit Reasons: 2 M FU Chief Complaint: Routine fu chronic conditions Accompanied by: Self Is patient in pain?: No Allergies naproxen Allergy (Verified 01/27/24 08:03) Hives vancomycin Allergy (Verified 01/27/24 08:03) Rash carvedilol Adverse Reaction (Verified 01/27/24 08:03) Upset Stomach Medications ???Medication ???Instructions ???Recorded ???Confirmed ???Type atenolol 25 mg tablet (Tenormin) 25 mg PO QHS heart 04/26/18 01/27/24 History hydroxyzine HCl 25 mg tablet 25 mg PO Q6H PRN PRN Anxiety 05/02/19 01/27/24 History albuterol sulfate 1.25 mg/3 mL 2.5 mg (6 mL) inhalation TID-QID 07/28/22 01/27/24 Rx solution for nebulization PRN shortness of breath or wheezing 30 days #90 mL albuterol sulfate 90 mcg/actuation 1 - 2 puff inhalation Q4H PRN PRN 07/28/22 01/27/24 Rx aerosol inhaler Wheezing ##1 ipratropium bromide 21 mcg (0.03 2 spray intranasal BID-TID PRN 07/28/22 01/27/24 Rx %) nasal spray allergy symptoms #30 mL omeprazole 40 mg capsule,delayed 40 mg PO BID Gerd #180 caps 01/20/23 01/27/24 Rx release Reli On [place] glucometer 02/25/23 01/27/24 History atorvastatin 20 mg tablet 20 mg PO DAILY #30 tabs 03/01/23 01/27/24 Rx aspirin 81 mg tablet,delayed 81 mg PO DAILY 05/13/23 01/27/24 History release (Adult Low Dose Aspirin) budesonide-formoterol HFA 160 2 puff inhalation BID #1 ea 08/04/23 01/27/24 Rx mcg-4.5 mcg/actuation aerosol inhaler (Symbicort) semaglutide 0.25 mg or 0.5 mg (2 0.25 mg (0.368 mL) subcut QWEEK #3 08/23/23 01/27/24 Rx mg/3 mL) subcutaneous pen injector mL (Ozempic) venlafaxine 150 mg 150 mg PO DAILY #90 caps 09/29/23 01/27/24 Rx capsule,extended release 24 hr furosemide 20 mg tablet 20 mg PO DAILY #90 tabs 11/09/23 01/27/24 Rx lisinopril 2.5 mg tablet 2.5 mg PO QHS BP #90 tabs 11/09/23 01/27/24 Rx potassium chloride 10 mEq 10 meq PO DAILY #90 tabs 11/09/23 01/27/24 Rx tablet,extended release flash glucose sensor (FreeStyle #1 ea 11/29/23 01/27/24 Rx Carli 14 Day Sensor kit) [facility] Medical History Diabetes Flank pain Hematuria Abnormal stress test Hyperlipidemia Elevated TSH Type 2 diabetes mellitus Diastolic dysfunction Dyspnea on exertion SOB (shortness of breath) Left bundle branch block Biventricular ICD (implantable cardioverter-defibril lator) in place (09/10/20) Abnormal PFTs Asthma with acute exacerbation Allergic rhinitis due to allergen Excessive daytime sleepiness Encounter for wellness examination in adult Encounter to establish care History of cardiomyopathy Heart disease A-fib Arthritis Asthma Back injury Lumbosacral radiculopathy at S1 DDD (degenerative disc disease), lumbar Bronchitis Contusion of lower back Contusion, hip Chest pain COVID-19 Congestive heart failure (CHF) ICD (implantable cardioverter-defibril lator) in place Atypical chest pain Congestive heart failure (CHF) Nonischemic cardiomyopathy Surgical History History of neck surgery History of ankle surgery History of cholecystectomy History of appendectomy Status post biventricular pacemaker Family History Grandmother CVA (cerebral vascular accident) Mother Colon cancer High cholesterol Other Bladder cancer Cancer Diabetes Hypertension Social History Smoking Status: Never smoker alcohol intake: never substance use type: does not use caffeine: Yes (sometimes) Type: carbonated beverages, coffee and tea HPI HPI Chief Complaint: Routine fu chronic conditions Details: SYLVIA MANCUSO, is a 54 F who presents to the office today for 3-month follow-up. 54-year-old female who was diagnosed with type 2 diabetes late last year. Her A1c was 10.2 at diagnosis. She had borderline sugars in the past prior to that. Since then she has made extensive dietary nutritional pattern changes. Focusing heavily on plants, fruits, vegetables, some meat but fairly small amounts, dairy and eggs etc. Overall pretty good high-quality diet. She (more content not included)... Normal [facility] Basophil percentageOrdered B y: Aydin Cee on 07-14-2023 Cholesterol [Mass/Vol] 154 mg/dL <200 [facility] Comment on above: <200 mg/dL Desirable 200-240 mg/dL Borderline >240 mg/dL High Risk Triglyceride [Mass/Vol] 109 mg/dL <199 [facility] Comment on above: The drugs N-Acetylcy steine and Metamizole may falsely depress this assay.Serum Triglycerides Reference Interval Normal <150 mg/dL Borderline high 150 - 199 mg/dL High 200 - 499 mg/dL Very High > or = 500 mg/dL High density lipoprotein (HD L) measurementOrdered By: Aydin Cee on 07-14-2023 Cholesterol in HDL (Body fld) [Mass/Vol] 52 mg/dL >40 [facility] Comment on above: The drugs N-Acetylcy steine and Metamizole may falsely depress this assay. Reference Range HDL <40 mg/dL Low HDL Cholesterol HDL >or= 60 mg/dL High HDL Cholesterol Low density lipoprotein (LDL ) cholesterol measurementOrdered By: Aydin Cee on 07-14-2023 Cholesterol in LDL (Body fld) [Moles/Vol] 80 mg/dL 0-130 [facility] Very low density lipoprotein (VLDL) cholesterol measurementOrdered By: Aydin Cee on 07-14-2023 Cholesterol in VLDL Calc [Moles/Vol] 22 mg/dL 5-40 [facility] Basophil percentageOrdered B y: Aydin Cee on 05-27-2023 Bilirubin [Mass/Vol] 0.30 mg/dL 0.20-1.00 [facility] Comment on above: For patients on eltr ombopag therapy, use of Dimension [place] TBIL is not recommended. Protein [Mass/Vol] 7.1 g/dL 6.4-8.[address] [facility] Direct bilirubinOrdered By: Aydin Cee on 05-27-2023 Bilirubin.direct [Mass/Vol] 0.10 mg/dL 0.00-0.30 [facility] Laboratory - Chemistry and C hemistry - challengeOrdered By: Aydin Cee on 05-27-2023 ALP [Catalytic activity/Vol] 127 U/L 45-117 [facility] ALT [Catalytic activity/Vol] 44 U/L 13-56 [facility] Globulin (S) [Mass/Vol] 3.4 g/dL 2.2-4.[address] [facility] Laboratory - Chemistry and C hemistry - challengeOrdered By: Bhavana Rodríguez on 05-27-2023 Free T4 [Mass/Vol] 0.94 ng/dL 0.76-1.[address] [facility] No Panel InformationOrdered By: Bhavana Rodríguez on 05-27-2023 Free Triiodothyronine (T3) pg/dL 2.3 pg/mL 2.18-3.98 [facility] Thyroid Stimulating Hormone (TSH) 2.44 uIU/mL 0.358-3.74 [facility] Serum or plasma albumin albertina urement (mass/volume)Ordered By: Aydin Cee on 05-27-2023 Albumin [Mass/Vol] 3.7 g/dL 3.2-5.[address] [facility] Thin prep Papanicolaou smear with manual screeningOrdered By: Aydin Cee on 05-27-2023 Thin prep Papanicolaou smear with manual screening 36 U/L 15-37 [facility] Whole blood hemoglobin A1c/t otal hemoglobin ratio (mass fraction)Ordered By: Bhavana Rodríguez on 05-27-2023 HbA1c (Bld) [Mass fraction] 6.8 % 3.8-5.6 [facility] Comment on above: Normal < 5.7 % Predi abetic 5.7 - 6.4 % Diabetic >or= 6.5 % Please note range changes. ICD REMOTE CHECKon AV Delay Adaptive Paced Minimum (ms) 130 ms [facility] AV Delay Adaptive Sensed Minimum (ms) 100 ms [facility] Vasile LV Pacing Amplitude (volts) 3.0 V [facility] Vasile LV Pacing Pulse Width (ms) 0.7 ms [facility] vasile LV Sensing Amplitude (mvolts) 1.0 mV [facility] Vasile RA Pacing Amplitude (volts) 2.0 V [facility] Vasile RA Pacing Polarity BI [facility] Vasile RA Pacing Pulse Width (ms) 0.4 ms [facility] Vasile RA Sensing Amplitude (mvolts) 0.25 mV [facility] [facility] Sensing Polarity BI [facility] Vasile RV Pacing Amplitude (volts) 2.0 V [facility] Vasile RV Pacing Polarity BI [facility] Vasile RV Pacing Pulse Width (ms) 0.4 ms [facility] RV Sensing Amplitude (mvolts) 0.3 mV [facility] Vasile RV Sensing Polarity BI [facility] Detection Configuration (Vent) 2 - Zone [facility] FastVT_Detection Interval 316 ms [facility] FastVT_Therapy Configuration 1 ATP(s) + 6 Shock(s) [facility] ICD FastVT DetectionStatus ENABLED [facility] ICD-AMS EPISODES 170 {beats}/min [facility] ICD-ATP Episodes (Vent) 0 C [facility] ICD-ATRIALFIBRILLATION 0 Cl [facility] ICD-Device Mfg BSX [facility] ICD-LEADIMPEDANCEATRIAL 751 ohm [facility] ICD-Percent Pacing (Atrial) 2 % [facility] ICD-Percent Pacing (Vent) 100 % [facility] ICD-Shocks Aborted (Vent) 0 [facility] ITN-[id number] 0 [facility] ICD-SHOCKSABORTED 0 [facility] ICD-SHOCKSDELIVEREDVENT RICULAR 0 [facility] ICD-Ventricular Fibrillation 0 [facility] ICD-VVDELAY_MS 0 ms [facility] Implant Date 09/10/2020 [facility] Lead Impedance (LV) 711 ohm [facility] Lead Impedance (RV) 554 ohm [facility] Lead Impedance High Voltage 68 ohm [facility] Lead1 Mfg MDT [facility] Lead2 Mfg MDT [facility] Lead3 Mfg GDT [facility] Lead4 Mfg GDT [facility] Location RV [facility] Location RA [facility] Lower Rate (bpm) 60 {beats}/min [facility] LV PACING % 100 % [facility] Max Sensor Rate (bpm) 130 {beats}/min [facility] MDT_PROG_TACHY_ZONE_DET ECTIONS_STATUS ENABLED [facility] Model G151 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-D [facility] Model 0180 [employer]otak Relianc e SG [facility] Model 4135 Dextrus [facility] Pacing Mode DDD [facility] Serial Number [id number] [facility] Serial Number [id number] [facility] Serial Number [id number] [facility] Serial Number [id number] [facility] Serial Number [id number] [facility] Test Charge Time 10.6 s [facility] Therapy Status (Vent) Enabled [facility] Thresh LV Capture Amplitude (volts) 1.3 V [facility] Thresh LV Capture Duration (ms) 0.7 ms [facility] Thresh RA Capture Amplitude (volts) 0.6 V [facility] Thresh RA Capture Duration (ms) 0.4 ms [facility] Thresh RV Capture Amplitude (VOLTS) 0.8 V [facility] Thresh RV Capture Duration (MS) 0.4 ms [facility] Tracking Rate (bpm) 135 {beats}/min [facility] VF Zone Detection Interval 316 ms [facility] VF Zone Therapy Configuration 1 ATP(s) + 6 Shock(s) [facility] No Panel Informationon 04-09 BLANK _ [facility] ICD-ATRIALTACHYCARDIA 0 [facility] ICD-Fast Ventricular Tachycardia 0 [facility] Implant Date 07/11/2010 [facility] Implant Date 06/09/2010 [facility] Location LV [facility] Model 5071 Screw-In [facility] Laboratory - Chemistry and C hemistry - challengeOrdered By: Natalio Berkowitz on 04-07-2023 HCG ( test) Ql (U) Negative [facility] Comment on above: Very dilute urine sp ecimens, as indicated by a low specificgravity, may not contain development representative levels of hCG. If is still suspected, a first morning urinespecimen should be collected 48 hours later and tested. Absolute lymphocyte countOrd ered By: Cyndi Elizondo on 03-31-2023 Lymphocytes Auto (Unsp spec) [#/Vol] 1.61 10*3/uL 0.83-4.51 [facility] Basophil percentageOrdered B y: Bhavana Rodríguez on 03-31-2023 Basophil percentage >100 SEEN /hpf 0-5 [facility] Basophil percentageOrdered B y: Cyndi Elizondo on 03-31-2023 Basophils/100 WBC (Bld) 0.4 % 0-1 [facility] Chloride [Moles/Vol] 109 mmol/L 98-107 [facility] Eosinophils/100 WBC (Bld) 1.2 % 0-5 [facility] Glucose [Mass/Vol] 163 mg/dL 74-[address] [facility] Comment on above: Fasting Glucose resu lt greater than or equal to 126 mg/dL suggests DIABETES MELLITUS per A.D.A. criteria. Neutrophils (Bld) [#/Vol] 5.9 10*3/uL 2.0-7.7 [facility] Neutrophils/100 WBC (Bld) 71.4 % 47-70 [facility] Potassium [Moles/Vol] 3.8 mmol/L 3.5-5.1 [facility] Sodium [Moles/Vol] 142 mmol/L 136-[address] [facility] WBC (Bld) [#/Vol] 8.3 10*3/uL 4.4-11.[address] [facility] Beta hCG serum qualOrdered B y: Cyndi Elizondo on 03-31-2023 Beta HCG ( test) Ql Negative [facility] Bilirubin Test strip Ql (U)O rdered By: Bhavana Rodríguez on 03-31-2023 Bilirubin Ql (U) 1 mg/dL Negative [facility] Comment on above: COLOR OF URINE MAY A FFECT DIPSTICK RESULTS. Blood erythrocytes count (nu mber/volume)Ordered By: Cyndi Elizondo on 03-31-2023 RBC (Bld) [#/Vol] 4.57 10*6/uL 4.2-5.4 [facility] Blood hemoglobin measurement (mass/volume)Ordered By: Cyndi Elizondo on 03-31-2023 Hemoglobin (Bld) [Mass/Vol] 12.1 g/dL 12.0-15.0 [facility] Blood lymphocytes/100 leukoc ytesOrdered By: Cyndi Elizondo on 03-31-2023 Lymphocytes/100 WBC (Bld) 19.5 % 19-41 [facility] Blood monocytes/100 leukocyt esOrdered By: Cyndi Elizondo on 03-31-2023 Monocytes/100 WBC (Bld) 7.3 % 0-10 [facility] Blood platelet mean volumeOr dered By: Cyndi Elizondo on 03-31-2023 Platelet mean volume (Bld) [Entitic vol] 11.1 fL 6.2-12.0 [facility] Culture, urineOrdered By: Eunice Rodríguez on 03-31-2023 Bacteria identified Cx Nom (U) Mixed Gram Pos & Gram Neg Org [facility] Bacteria identified Cx Nom (U) Mixed Gram Pos & Gram Neg Org [facility] Determination of erythrocyte mean corpuscular volume (MCV)Ordered By: Cyndi Elizondo on 03-31-2023 MCV (RBC) [Entitic vol] 85.1 fL 81-99 [facility] Hematocrit Auto (Bld) [Volum e fraction]Ordered By: Cyndi Elizondo on 03-31-2023 Hematocrit (Bld) [Volume fraction] 38.9 % 37-47 [facility] Ketones Test strip Ql (U)Ord ered By: Bhavana Rodríguez on 03-31-2023 Ketones Ql (U) 5 mg/dl Negative [facility] Laboratory - Chemistry and C hemistry - challengeOrdered By: Cyndi Elizondo on 03-31-2023 CO2 [Moles/Vol] 26.0 mmol/L 21.0-32.0 [facility] Urea nitrogen/Creatinine [Mass ratio] 13.6 mg/mg 10-20 [facility] Laboratory - Hematology and Cell countsOrdered By: Cyndi Elizondo on 03-31-2023 Erythrocyte distribution width (RBC) [Entitic vol] 43.1 fL 35.1-43.9 [facility] Erythrocyte distribution width (RBC) [Ratio] 13.9 % 11.6-14.6 [facility] Immature granulocytes/100 WBC (Bld) 0.200 % 0.0-0.9 [facility] Comment on above: IG% - Immature Granu locytes (promyelocytes, myelocytes and metamyelocytes) > 1% indicates that a LEFT SHIFT is Present. MCH (RBC) [Entitic mass] 26.5 pg 27.0-32.0 [facility] Nucleated RBC/100 WBC (Bld) [Ratio] 0 % 0-5 [facility] MCHC Auto (RBC) [Mass/Vol]Or dered By: Cyndi Elizondo on 03-31-2023 MCHC (RBC) [Mass/Vol] 31.1 g/dL 32-36 [facility] Mucus LM Ql (Urine sed)Order ed By: Bhavana Rodríguez on 03-31-2023 Mucus Ql (Urine sed) 0 SEEN /hpf [facility] Nitrite Test strip Ql (U)Ord ered By: Bhavana Rodríguez on 03-31-2023 Nitrite Ql (U) Positive Negative [facility] No Panel InformationOrdered By: Cyndi Elizondo on 03-31-2023 Estimated GFR (MDRD) Amer 79 mL/min >60 [facility] Comment on above: GFR Calc Estimated GFR (MDRD) Non-Af Amer 65 mL/min >60 [facility] Comment on above: Non- GFR Calc Platelets bldOrdered By: Nathanael Elizondo on 03-31-2023 Platelets (Bld) [#/Vol] 214 10*3/uL 150-450 [facility] Protein Test strip Ql (U)Ord ered By: Bhavana Rodríguez on 03-31-2023 Protein Ql (U) 500 mg/dl Negative [facility] Serum or plasma calcium albertina urement (mass/volume)Ordered By: Cyndi Elizondo on 03-31-2023 Calcium [Mass/Vol] 9.3 mg/dL 8.5-10.[address] [facility] Serum or plasma creatinine m easurement (mass/volume)Ordered By: Cyndi Elizondo on 03-31-2023 Creatinine [Mass/Vol] 0.96 mg/dL 0.55-1.02 [facility] Comment on above: The validity of the calculated GFR & GFRAA in patients over 70 years has not been determined. Clinical correlation is essential. Serum or plasma urea nitroge n measurement (mass/volume)Ordered By: Cyndi Elizondo on 03-31-2023 Urea nitrogen [Mass/Vol] 13 mg/dL - [facility] Squamous epithelial cells de tection in urine sediment by light microscopyOrdered By: Bhavana Rodríguez on 03-31-2023 Epithelial cells.squamous LM Ql (Urine sed) 0 SEEN /hpf 5-10 [facility] Thin prep Papanicolaou smear with manual screeningOrdered By: Cyndi Elizondo on 03-31-2023 Thin prep Papanicolaou smear with manual screening 7 5-15 [facility] Urine blood detectionOrdered By: Bhavana Rodríguez on 03-31-2023 RBC Ql (U) 250 /ul Negative [facility] RBC Ql (U) > 100 SEEN /hpf 0-5 [facility] Urine clarityOrdered By: Faina Rodríguez on 03-31-2023 Clarity (U) Cloudy Clear [facility] Urine color determinationOrd ered By: Bhavana Rodríguez on 03-31-2023 Color (U) Yellow Yellow [facility] Urine glucose detectionOrder ed By: Bhavana Rodríguez on 03-31-2023 Glucose Ql (U) Normal mg/dl Normal [facility] Urine leukocyte esterase det ection by dipstickOrdered By: Bhavana Rodríguez on 03-31-2023 Leukocyte esterase Test strip Ql (U) 100 /ul Negative [facility] Urine pHOrdered By: Bhavana mak on 03-31-2023 pH (U) 6.0 [pH] 5.0 - 8.0 [facility] Urine sediment bacteria coun t by microscopy (number/high power field)Ordered By: Bhavana Rodríguez on 03-31-2023 Bacteria LM.HPF (Urine sed) [#/Area] 2 /[HPF] None Seen [facility] Urine specific gravity measu rementOrdered By: Bhavana Rodríguez on 03-31-2023 Specific gravity (U) [Rel density] 1.015 1.002-1.030 [facility] Urobilinogen Auto test strip Ql (U)Ordered By: Bhavana Rodríguez on 03-31-2023 Urobilinogen Ql (U) 1 mg/dl Normal [facility] Absolute lymphocyte countOrd ered By: Tr Quintanilla on 03-02-2023 Lymphocytes Auto (Unsp spec) [#/Vol] 1.50 10*3/uL 0.83-4.51 [facility] Basophil percentageOrdered B y: Tr Quintanilla on 03-02-2023 Basophils/100 WBC (Bld) 0.6 % 0-1 [facility] Chloride [Moles/Vol] 101 mmol/L 98-107 [facility] Eosinophils/100 WBC (Bld) 1.8 % 0-5 [facility] Glucose [Mass/Vol] 290 mg/dL 74-[address] [facility] Comment on above: Glucose result great er than or equal to 200 mg/dLsuggests DIABETES MELLITUS per A.D.A. criteria. Neutrophils (Bld) [#/Vol] 4.7 10*3/uL 2.0-7.7 [facility] Neutrophils/100 WBC (Bld) 69.3 % 47-70 [facility] Potassium [Moles/Vol] 3.4 mmol/L 3.5-5.1 [facility] Sodium [Moles/Vol] 136 mmol/L 136-[address] [facility] WBC (Bld) [#/Vol] 6.8 10*3/uL 4.4-11.[address] [facility] Blood erythrocytes count (nu mber/volume)Ordered By: Tr Quintanilla on 03-02-2023 RBC (Bld) [#/Vol] 5.03 10*6/uL 4.2-5.4 [facility] Blood hemoglobin measurement (mass/volume)Ordered By: Tr Quintanilla on 03-02-2023 Hemoglobin (Bld) [Mass/Vol] 13.5 g/dL 12.0-15.0 [facility] Blood lymphocytes/100 leukoc ytesOrdered By: Tr Quintanilla on 03-02-2023 Lymphocytes/100 WBC (Bld) 22.1 % 19-41 [facility] Blood monocytes/100 leukocyt esOrdered By: Tr Quintanilla on 03-02-2023 Monocytes/100 WBC (Bld) 5.9 % 0-10 [facility] Blood platelet mean volumeOr dered By: Tr Quintanilla on 03-02-2023 Platelet mean volume (Bld) [Entitic vol] 10.7 fL 6.2-12.0 [facility] Determination of erythrocyte mean corpuscular volume (MCV)Ordered By: Tr Quintanilla on 03-02-2023 MCV (RBC) [Entitic vol] 81.9 fL 81-99 [facility] Glucose Glucometer (BldC) [M ass/Vol]Ordered By: Natalio Berkowitz on 03-02-2023 Glucose [Mass/Vol] 278 mg/dL 74-[address] [facility] Comment on above: MANAGEMENT OF PATIEN T CARE PER NURSING PROTOCOL Hematocrit Auto (Bld) [Volum e fraction]Ordered By: Tr Quintanilla on 03-02-2023 Hematocrit (Bld) [Volume fraction] 41.2 % 37-47 [facility] Laboratory - Chemistry and C hemistry - challengeOrdered By: Tr Quintanilla on 03-02-2023 CO2 [Moles/Vol] 25.0 mmol/L 21.0-32.0 [facility] Magnesium [Mass/Vol] 1.9 mg/dL 1.6-2.6 [facility] Natriuretic peptide B (Bld) [Mass/Vol] 3.3 pg/mL 0-100 [facility] Urea nitrogen/Creatinine [Mass ratio] 12.6 mg/mg 10-20 [facility] Laboratory - Hematology and Cell countsOrdered By: Tr Quintanilla on 03-02-2023 Erythrocyte distribution width (RBC) [Entitic vol] 42.6 fL 35.1-43.9 [facility] Erythrocyte distribution width (RBC) [Ratio] 14.2 % 11.6-14.6 [facility] Immature granulocytes/100 WBC (Bld) 0.300 % 0.0-0.9 [facility] Comment on above: IG% - Immature Granu locytes (promyelocytes, myelocytes and metamyelocytes) > 1% indicates that a LEFT SHIFT is Present. MCH (RBC) [Entitic mass] 26.8 pg 27.0-32.0 [facility] Nucleated RBC/100 WBC (Bld) [Ratio] 0 % 0-5 [facility] MCHC Auto (RBC) [Mass/Vol]Or dered By: Tr Quintanilla on 03-02-2023 MCHC (RBC) [Mass/Vol] 32.8 g/dL 32-36 [facility] No Panel InformationOrdered By: Tr Quintanilla on 03-02-2023 Troponin I High Sensitivity 5 pg/mL 3.0-54.0 [facility] Comment on above: Please Note: [place] Units and Gender Specific Reference Ranges. For more information see Policy Stat Procedure [place] High Sensitivity Troponin (TNIH) and attachments. Estimated GFR (MDRD) Amer 66 mL/min >60 [facility] Comment on above: GFR Calc Estimated GFR (MDRD) Non-Af Amer 55 mL/min >60 [facility] Comment on above: Non- GFR Calc Platelets bldOrdered By: Reanna Quintanilla on 03-02-2023 Platelets (Bld) [#/Vol] 234 10*3/uL 150-450 [facility] Serum or plasma calcium albertina urement (mass/volume)Ordered By: Tr Quintanilla on 03-02-2023 Calcium [Mass/Vol] 9.6 mg/dL 8.5-10.[address] [facility] Serum or plasma creatinine m easurement (mass/volume)Ordered By: Tr Quintanilla on 03-02-2023 Creatinine [Mass/Vol] 1.11 mg/dL 0.55-1.02 [facility] Comment on above: The validity of the calculated GFR & GFRAA in patients over 70 years has not been determined. Clinical correlation is essential. Serum or plasma urea nitroge n measurement (mass/volume)Ordered By: Tr Quintanilla on 03-02-2023 Urea nitrogen [Mass/Vol] 14 mg/dL 7-18 [facility] Thin prep Papanicolaou smear with manual screeningOrdered By: Tr Quintanilla on 03-02-2023 Thin prep Papanicolaou smear with manual screening 10 5-15 [facility] Absolute lymphocyte countOrd ered By: Mainor Wallace on 02-23-2023 Lymphocytes Auto (Unsp spec) [#/Vol] 1.17 10*3/uL 0.83-4.51 [facility] Basophil percentageOrdered B y: Mainor Wallace on 02-23-2023 Basophil percentage 0 SEEN /hpf 0-5 [facility] Basophils/100 WBC (Bld) 0.6 % 0-1 [facility] Chloride [Moles/Vol] 96 mmol/L 98-107 [facility] Eosinophils/100 WBC (Bld) 1.3 % 0-5 [facility] Glucose [Mass/Vol] 368 mg/dL 74-[address] [facility] Comment on above: Glucose result great er than or equal to 200 mg/dLsuggests DIABETES MELLITUS per A.D.A. criteria. Neutrophils (Bld) [#/Vol] 5.0 10*3/uL 2.0-7.7 [facility] Neutrophils/100 WBC (Bld) 74.3 % 47-70 [facility] Potassium [Moles/Vol] 3.6 mmol/L 3.5-5.1 [facility] Sodium [Moles/Vol] 134 mmol/L 136-[address] [facility] WBC (Bld) [#/Vol] 6.8 10*3/uL 4.4-11.[address] [facility] Bilirubin Test strip Ql (U)O rdered By: Mainor Wallace on 02-23-2023 Bilirubin Ql (U) Negative Negative [facility] Blood erythrocytes count (nu mber/volume)Ordered By: Mainor Wallace on 02-23-2023 RBC (Bld) [#/Vol] 5.14 10*6/uL 4.2-5.4 [facility] Blood hemoglobin measurement (mass/volume)Ordered By: Mainor Wallace on 02-23-2023 Hemoglobin (Bld) [Mass/Vol] 13.6 g/dL 12.0-15.0 [facility] Blood lymphocytes/100 leukoc ytesOrdered By: Mainor Wallace on 02-23-2023 Lymphocytes/100 WBC (Bld) 17.2 % 19-41 [facility] Blood monocytes/100 leukocyt esOrdered By: Mainor Wallace on 02-23-2023 Monocytes/100 WBC (Bld) 6.2 % 0-10 [facility] Blood platelet mean volumeOr dered By: Mainor Wallace on 02-23-2023 Platelet mean volume (Bld) [Entitic vol] 11.3 fL 6.2-12.0 [facility] Determination of erythrocyte mean corpuscular volume (MCV)Ordered By: Mainor Wallace on 02-23-2023 MCV (RBC) [Entitic vol] 81.3 fL 81-99 [facility] Hematocrit Auto (Bld) [Volum e fraction]Ordered By: Mainor Wallace on 02-23-2023 Hematocrit (Bld) [Volume fraction] 41.8 % 37-47 [facility] Influenza virus A and B and SARS-CoV-2 (COVID-19) Ag panel - Upper respiratory specimOrdered By: Mainor Wallace on 02-23-2023 SARS-CoV-2 (COVID-19) RNA AMY+probe Ql (Resp) [facility] SARS-CoV-2 (COVID-19) RNA AMY+probe Ql (Resp) [facility] Ketones Test strip Ql (U)Ord ered By: Mainor Wallace on 02-23-2023 Ketones Ql (U) 5 mg/dl Negative [facility] Laboratory - Chemistry and C hemistry - challengeOrdered By: Mainor Wallace on 02-23-2023 CO2 [Moles/Vol] 30.0 mmol/L 21.0-32.0 [facility] Urea nitrogen/Creatinine [Mass ratio] 13.8 mg/mg 10-20 [facility] Laboratory - Hematology and Cell countsOrdered By: Mainor Wallace on 02-23-2023 Erythrocyte distribution width (RBC) [Entitic vol] 42.1 fL 35.1-43.9 [facility] Erythrocyte distribution width (RBC) [Ratio] 14.4 % 11.6-14.6 [facility] Immature granulocytes/100 WBC (Bld) 0.400 % 0.0-0.9 [facility] Comment on above: IG% - Immature Granu locytes (promyelocytes, myelocytes and metamyelocytes) > 1% indicates that a LEFT SHIFT is Present. MCH (RBC) [Entitic mass] 26.5 pg 27.0-32.0 [facility] Nucleated RBC/100 WBC (Bld) [Ratio] 0 % 0-5 [facility] MCHC Auto (RBC) [Mass/Vol]Or dered By: Mainor Wallace on 02-23-2023 MCHC (RBC) [Mass/Vol] 32.5 g/dL 32-36 [facility] Mucus LM Ql (Urine sed)Order ed By: Mainor Wallace on 02-23-2023 Mucus Ql (Urine sed) 0 SEEN /hpf [facility] Nitrite Test strip Ql (U)Ord ered By: Mainor Wallace on 02-23-2023 Nitrite Ql (U) Negative Negative [facility] No Panel InformationOrdered By: Mainor Wallace on 02-23-2023 Estimated Creatinine Clearance Calc 54.33 ml/min [facility] Estimated GFR (MDRD) Amer 68 mL/min >60 [facility] Comment on above: GFR Calc Estimated GFR (MDRD) Non-Af Amer 56 mL/min >60 [facility] Comment on above: Non- GFR Calc Troponin I High Sensitivity 4 pg/mL 3.0-54.0 [facility] Comment on above: Please Note: [place] Units and Gender Specific Reference Ranges. For more information see Policy Stat Procedure [place] High Sensitivity Troponin (TNIH) and attachments. Platelets bldOrdered By: Estela Wallace on 02-23-2023 Platelets (Bld) [#/Vol] 234 10*3/uL 150-450 [facility] Protein Test strip Ql (U)Ord ered By: Mainor Wallace on 02-23-2023 Protein Ql (U) Negative Negative [facility] Serum or plasma calcium albertina urement (mass/volume)Ordered By: Mainor Wallace on 02-23-2023 Calcium [Mass/Vol] 9.5 mg/dL 8.5-10.[address] [facility] Serum or plasma creatinine m easurement (mass/volume)Ordered By: Mainor Wallace on 02-23-2023 Creatinine [Mass/Vol] 1.09 mg/dL 0.55-1.02 [facility] Comment on above: The validity of the calculated GFR & GFRAA in patients over 70 years has not been determined. Clinical correlation is essential. Serum or plasma urea nitroge n measurement (mass/volume)Ordered By: Mainor Wallace on 02-23-2023 Urea nitrogen [Mass/Vol] 15 mg/dL 7-18 [facility] Squamous epithelial cells de tection in urine sediment by light microscopyOrdered By: Mainor Wallace on 02-23-2023 Epithelial cells.squamous LM Ql (Urine sed) 0-5 SEEN /hpf 5-10 [facility] Thin prep Papanicolaou smear with manual screeningOrdered By: Mainor Wallace on 02-23-2023 Thin prep Papanicolaou smear with manual screening 8 5-15 [facility] Urine blood detectionOrdered By: Mainor Wallace on 02-23-2023 RBC Ql (U) Negative Negative [facility] RBC Ql (U) 0 SEEN /hpf 0-5 [facility] Urine clarityOrdered By: Estela Wallace on 02-23-2023 Clarity (U) Sl. Cloudy Clear [facility] Urine color determinationOrd ered By: Mainor Wallace on 02-23-2023 Color (U) Straw Yellow [facility] Urine glucose detectionOrder ed By: Mainor Wallace on 02-23-2023 Glucose Ql (U) 250 mg/dl Normal [facility] Urine leukocyte esterase det ection by dipstickOrdered By: Mainor Wallace on 02-23-2023 Leukocyte esterase Test strip Ql (U) Negative Negative [facility] Urine pHOrdered By: Mainor barnett on 02-23-2023 pH (U) 7.0 [pH] 5.0 - 8.0 [facility] Urine sediment bacteria coun t by microscopy (number/high power field)Ordered By: Mainor Wallace on 02-23-2023 Bacteria LM.HPF (Urine sed) [#/Area] 0 /[HPF] None Seen [facility] Urine specific gravity measu rementOrdered By: Mainor Wallace on 02-23-2023 Specific gravity (U) [Rel density] 1.010 1.002-1.030 [facility] Urobilinogen Auto test strip Ql (U)Ordered By: Mainor Wallace on 02-23-2023 Urobilinogen Ql (U) Normal mg/dl Normal [facility] Whole blood hemoglobin A1c/t otal hemoglobin ratio (mass fraction)Ordered By: Mainor Wallace on 02-23-2023 HbA1c (Bld) [Mass fraction] 10.2 % 3.8-5.6 [facility] Comment on above: Normal < 5.7 % Predi abetic 5.7 - 6.4 % Diabetic >or= 6.5 % Please note range changes. Absolute lymphocyte countOrd ered By: Bhavana Rodríguez on 02-22-2023 Lymphocytes Auto (Unsp spec) [#/Vol] 1.80 10*3/uL 0.83-4.51 [facility] Basophil percentageOrdered B y: Bhavana Rodríguez on 02-22-2023 Basophils/100 WBC (Bld) 0.7 % 0-1 [facility] Eosinophils/100 WBC (Bld) 2.1 % 0-5 [facility] Neutrophils (Bld) [#/Vol] 4.2 10*3/uL 2.0-7.7 [facility] Neutrophils/100 WBC (Bld) 62.3 % 47-70 [facility] WBC (Bld) [#/Vol] 6.7 10*3/uL 4.4-11.[address] [facility] Basophil percentageOrdered B y: Natalio Berkowitz on 02-22-2023 Chloride [Moles/Vol] 100 mmol/L 98-107 [facility] Cholesterol [Mass/Vol] 267 mg/dL <200 [facility] Comment on above: <200 mg/dL Desirable 200-240 mg/dL Borderline >240 mg/dL High Risk Glucose [Mass/Vol] 338 mg/dL 74-[address] [facility] Comment on above: Glucose result great er than or equal to 200 mg/dLsuggests DIABETES MELLITUS per A.D.A. criteria. Potassium [Moles/Vol] 3.8 mmol/L 3.5-5.1 [facility] Sodium [Moles/Vol] 138 mmol/L 136-[address] [facility] Triglyceride [Mass/Vol] 188 mg/dL <199 [facility] Comment on above: The drugs N-Acetylcy steine and Metamizole may falsely depress this assay.Serum Triglycerides Reference Interval Normal <150 mg/dL Borderline high 150 - 199 mg/dL High 200 - 499 mg/dL Very High > or = 500 mg/dL Blood erythrocytes count (nu mber/volume)Ordered By: Bhavana Rodríguez on 02-22-2023 RBC (Bld) [#/Vol] 4.97 10*6/uL 4.2-5.4 [facility] Blood hemoglobin measurement (mass/volume)Ordered By: Bhavana Rodríguez on 02-22-2023 Hemoglobin (Bld) [Mass/Vol] 13.4 g/dL 12.0-15.0 [facility] Blood lymphocytes/100 leukoc ytesOrdered By: Bhavana Rodríguez on 02-22-2023 Lymphocytes/100 WBC (Bld) 26.7 % 19-41 [facility] Blood monocytes/100 leukocyt esOrdered By: Bhavana Rodríguez on 02-22-2023 Monocytes/100 WBC (Bld) 7.9 % 0-10 [facility] Blood platelet mean volumeOr dered By: Bhavana Rodríguez on 02-22-2023 Platelet mean volume (Bld) [Entitic vol] 11.2 fL 6.2-12.0 [facility] Determination of erythrocyte mean corpuscular volume (MCV)Ordered By: Bhavana Rodríguez on 02-22-2023 MCV (RBC) [Entitic vol] 83.3 fL 81-99 [facility] Hematocrit Auto (Bld) [Volum e fraction]Ordered By: Bhavana Rodríguez on 02-22-2023 Hematocrit (Bld) [Volume fraction] 41.4 % 37-47 [facility] Laboratory - Chemistry and C hemistry - challengeOrdered By: Bhavana Rodríguez on 02-22-2023 Free T4 [Mass/Vol] 1.07 ng/dL 0.76-1.[address] [facility] Laboratory - Chemistry and C hemistry - challengeOrdered By: Natalio Berkowitz on 02-22-2023 CO2 [Moles/Vol] 29.0 mmol/L 21.0-32.0 [facility] Urea nitrogen/Creatinine [Mass ratio] 14.0 mg/mg 10-20 [facility] Laboratory - Hematology and Cell countsOrdered By: Bhavana Rodríguez on 02-22-2023 Erythrocyte distribution width (RBC) [Entitic vol] 43.6 fL 35.1-43.9 [facility] Erythrocyte distribution width (RBC) [Ratio] 14.4 % 11.6-14.6 [facility] Immature granulocytes/100 WBC (Bld) 0.300 % 0.0-0.9 [facility] Comment on above: IG% - Immature Granu locytes (promyelocytes, myelocytes and metamyelocytes) > 1% indicates that a LEFT SHIFT is Present. MCH (RBC) [Entitic mass] 27.0 pg 27.0-32.0 [facility] Nucleated RBC/100 WBC (Bld) [Ratio] 0 % 0-5 [facility] Auto (RBC) [Mass/Vol]Or dered By: Bhavana Rodríguez on 02-22-2023 MCHC (RBC) [Mass/Vol] 32.4 g/dL 32-36 [facility] No Panel InformationOrdered By: Bhavana Rodríguez on 02-22-2023 Free Triiodothyronine (T3) pg/dL 3.5 pg/mL 2.18-3.98 [facility] Insulin Level 14.0 mU/L 2.6-37.6 [facility] Thyroid Stimulating Hormone (TSH) 5.56 uIU/mL 0.358-3.74 [facility] Vitamin D 25-Hydroxy 33.2 ng/mL [facility] Comment on above: Vitamin D 25(OH) Sta tus Range Deficiency <20 ng/mL (50nmol/L) Insufficiency 20 - 30 ng/mL (50 - 75 nmol/L) Sufficiency 30 - 100 ng/mL (75 - 250 nmol/L) Toxicity >100 ng/mL (>250 nmol/L) No Panel InformationOrdered By: Natalio Berkowitz on 02-22-2023 Estimated GFR (MDRD) Amer 60 mL/min >60 [facility] Comment on above: GFR Calc Estimated GFR (MDRD) Non-Af Amer 50 mL/min >60 [facility] Comment on above: Non- GFR Calc Platelets bldOrdered By: Faina Rodríguez on 02-22-2023 Platelets (Bld) [#/Vol] 269 10*3/uL 150-450 [facility] Serum or plasma calcium albertina urement (mass/volume)Ordered By: Natalio Berkowitz on 02-22-2023 Calcium [Mass/Vol] 9.5 mg/dL 8.5-10.[address] [facility] Serum or plasma cholesterol in HDL measurement (mass/volume)Ordered By: Natalio Berkowitz on 02-22-2023 Cholesterol in HDL [Mass/Vol] 47 mg/dL >40 [facility] Comment on above: The drugs N-Acetylcy steine and Metamizole may falsely depress this assay. Reference Range HDL <40 mg/dL Low HDL Cholesterol HDL >or= 60 mg/dL High HDL Cholesterol Serum or plasma cholesterol in VLDL measurement (mass/volume)Ordered By: Natalio Berkowitz on 02-22-2023 Cholesterol in VLDL [Mass/Vol] 38 mg/dL 5-40 [facility] Serum or plasma creatinine m easurement (mass/volume)Ordered By: Natalio Berkowitz on 02-22-2023 Creatinine [Mass/Vol] 1.21 mg/dL 0.55-1.02 [facility] Comment on above: The validity of the calculated GFR & GFRAA in patients over 70 years has not been determined. Clinical correlation is essential. Serum or plasma low density lipoprotein (LDL) cholesterol measurement (mass/volume)Ordered By: Natalio Berkowitz on 02-22-2023 Cholesterol in LDL [Mass/Vol] 182 mg/dL 0-130 [facility] Serum or plasma urea nitroge n measurement (mass/volume)Ordered By: Natalio Berkowitz on 02-22-2023 Urea nitrogen [Mass/Vol] 17 mg/dL 7-18 [facility] Thin prep Papanicolaou smear with manual screeningOrdered By: Natalio Berkowitz on 02-22-2023 Thin prep Papanicolaou smear with manual screening 9 5-15 [facility] Whole blood hemoglobin A1c/t otal hemoglobin ratio (mass fraction)Ordered By: Bhavana Rodríguez on 02-22-2023 HbA1c (Bld) [Mass fraction] 10.1 % 3.8-5.6 [facility] Comment on above: Normal < 5.7 % Predi abetic 5.7 - 6.4 % Diabetic >or= 6.5 % Please note range changes. Basophil percentageOrdered B y: Natalio Berkowitz on 02-18-2023 Chloride [Moles/Vol] 100 mmol/L 98-107 [facility] Glucose [Mass/Vol] 303 mg/dL 74-[address] [facility] Comment on above: Glucose result great er than or equal to 200 mg/dLsuggests DIABETES MELLITUS per A.D.A. criteria. Potassium [Moles/Vol] 3.7 mmol/L 3.5-5.1 [facility] Sodium [Moles/Vol] 135 mmol/L 136-[address] [facility] Laboratory - Chemistry and C hemistry - challengeOrdered By: Natalio Berkowitz on 02-18-2023 CO2 [Moles/Vol] 28.0 mmol/L 21.0-32.0 [facility] Natriuretic peptide B (Bld) [Mass/Vol] 19.6 pg/mL 0-100 [facility] Urea nitrogen/Creatinine [Mass ratio] 13.2 mg/mg 10-20 [facility] No Panel InformationOrdered By: Natalio Berkowitz on 02-18-2023 Estimated GFR (MDRD) Amer 76 mL/min >60 [facility] Comment on above: GFR Calc Estimated GFR (MDRD) Non-Af Amer 63 mL/min >60 [facility] Comment on above: Non- GFR Calc Serum or plasma calcium albertina urement (mass/volume)Ordered By: Natalio Berkowitz on 02-18-2023 Calcium [Mass/Vol] 9.1 mg/dL 8.5-10.[address] [facility] Serum or plasma creatinine m easurement (mass/volume)Ordered By: Natalio Berkowitz on 02-18-2023 Creatinine [Mass/Vol] 0.98 mg/dL 0.55-1.02 [facility] Comment on above: The validity of the calculated GFR & GFRAA in patients over 70 years has not been determined. Clinical correlation is essential. Serum or plasma urea nitroge n measurement (mass/volume)Ordered By: Natalio Berkowitz on 02-18-2023 Urea nitrogen [Mass/Vol] 13 mg/dL 7-18 [facility] Thin prep Papanicolaou smear with manual screeningOrdered By: Natalio Berkowitz on 02-18-2023 Thin prep Papanicolaou smear with manual screening 7 5-15 [facility] ANKLE, COMPLETE, MIN 3 VIEWS on 02-05-2023 ANKLE, COMPLETE, MIN 3 VIEWS Patient Name: SYLVIA MANCUSO STUDY: ANKLE, COMPLETE, MIN 3 VIEWS; Right; 02/05/2023 9:45 am INDICATION: fall with pain . COMPARISON: None. ACCESSION NUMBER(S): [id number] ORDERING CLINICIAN: ZACHERY LATIF FINDINGS: Three views right ankle: No acute fracture. Normal osseous alignment. Ankle mortise is congruent. Talar dome is preserved. Joint spaces are unremarkable. Minimal/mild soft tissue swelling of the lateral ankle suggested. Soft tissues are otherwise within normal limits. IMPRESSION: No acute osseous abnormality of the right ankle. MACRO: None Electronically signed by: VALERIE LEAVITT MD [facility] HIP, UNILATERAL W/PELVIS WHE N PERFORMED 2-3 VIEWSon 02-05-2023 HIP, UNILATERAL W/PELVIS WHEN PERFORMED 2-3 VIEWS Patient Name: SYLVIA MANCUSO STUDY: HIP, UNILATERAL W/PELVIS WHEN PERFORMED 2-3 VIEWS; Right; 02/05/2023 9:43 am INDICATION: fall with pain . COMPARISON: None. ACCESSION NUMBER(S): [id number] ORDERING CLINICIAN: ZACHERY LATIF FINDINGS: AP pelvis and two views right hip: No acute fracture. No dislocation. Hip joints are grossly maintained. Overlapping soft tissues are unremarkable. IMPRESSION: No acute osseous abnormality of the pelvis/right hip. MACRO: None Electronically signed by: VALERIE LEAVITT MD [facility] Provider Note - ED v3on 01-13 Provider Note - ED v3 Provider Note: Results/Vital Signs: Pediatric Clinical Scoring (RINA) is no recent RINA charted on this account Chart Review: ED NOTES ED NOTES: Limitations to History: None HPI: 53-year-old female presents with right hip and ankle pain. States that she lost her balance at work and fell on her left side however injured her right ankle and hip. Pain is sharp in nature. Worse with movement. Denies any head injury or loss of consciousness. Patient is not on anticoagulation. Additional History Obtained from: Friend at the bedside. Physical Exam: VS: As documented in the triage note and EMR flowsheet from this visit were reviewed. Appearance: Alert. cooperative, in no acute distress. Skin: Intact, dry skin, no lesions, rash, petechiae or purpura. HENT: Normocephalic, atraumatic. Nares patent. No intraoral lesions. Neck: Supple, without meningismus. Trachea at midline. No lymphadenopathy. Pulmonary: Clear bilaterally with good chest wall excursion. No rales, rhonchi or wheezing. No accessory muscle use or stridor. Cardiac: Regular rate and rhythm, no rubs, murmurs, or gallops. Musculoskeletal: Tenderness to palpation to the right hip. Tenderness to palpation of the right lateral ankle. Full range of motion of both. DP and PT pulses intact as well as popliteal and femoral pulses. Neurological: Sensation grossly intact to the right lower extremity. Psychiatric: Appropriate mood and affect. HISTORY OF PRESENTING ILLNESS SYLVIA is a 53 year old Female and was seen by me at 05-Feb-2023 09:08 for a chief complaint of fall (pt brought in from work reports lost balance fell denies LOC, neck or back pain.. reports right hip and knee pain)(1). Triage Information: Most recent Vital Sign Value Date Temp (F): 98.2 02-05-2023 09:06 Temp (C): 36.7 02-05-2023 09:06 Heart Rate (beats/min): 85 02-05-2023 09:06 Respirations (breaths/min): 18 02-05-2023 09:06 SpO2 (%): 100 02-05-2023 09:06 BP Systolic (mm Hg): 140 02-05-2023 09:06 BP Diastolic (mm Hg): 72 02-05-2023 09:06 PAST MEDICAL HISTORY ALLERGIES/INTOLERANCE S: Allergy Allergen: naproxen Type: Drug Reaction: Hives/Urticaria Allergen: vancomycin Type: Drug Reaction: Hives/Urticaria HEALTH HISTORY: No documented data. OUTPATIENT MEDICATIONS: Home Medications Review Status for Reconciliation: Incomplete Med Status: Incomplete Medication History No documented data. SIGNIFICANT EVENTS: Past Medical History Description:Left BBB Description:Cardiomyo jennifer Description:Pacemaker Description:Anxiety CRITICAL CARE RESULTS: Radiology Results: Impression: No acute osseous abnormality of the right ankle. MACRO: None Xray Ankle 3 View [Feb 05 2023 10:24AM] Impression: No acute osseous abnormality of the pelvis/right hip. MACRO: None Xray Hip 2 View [Feb 05 2023 10:22AM] VITAL SIGNS: T PRBP SpO2O2(LPM) %FiO2 Method 05-Feb-2023 09:06:[id number]/ 72 100 room air, no respiratory support MDM MDM/ED COURSE: Medical Decision Making: Patient appears well and nontoxic. Vital signs within normal limits. X-rays negative. Patient be treated with naproxen at home. Advised on rest and ice. Stable at time of discharge. Differential Diagnoses Considered: Right hip contusion versus fracture. Right ankle contusion versus fracture. Independent Interpretation of Studies: I independently interpreted: Right hip x-ray shows no acute fracture or dislocation. Right ankle x-ray without acute fracture or dislocation. Escalation of Care: Appropriate for outpatient management follow-up with primary care. Prescription Drug Consideration: Oral naproxen. DISPOSITION Diagnosis/Annotation: ED Dx Name:Fall Code:W19.XXXA Name:Contusion of hip Code:S70.00XA Name:Ankle contusion Code:S90.00XA Disposition: discharged Type: home CONSULT CRITICAL CARE TIME Is this a critically ill patient: no Electronic Signatures: Zachery Latif) (Signed 05-Feb-2023 10:46) Authored: ED Notes, HPI, PMH, PE, Results/Vital Signs, MDM/ED Course, Clinical Impression, Attestation, Chart Review, Scores Last Updated: 05-Feb-2023 10:46 by Zachery Latif () References: 1. Data Referenced From Triage - ED 05-Feb-2023 09:06 [facility] Risk Screen - Adult [facility] 02-05-2023 Risk Screen - Adult Emergency Preferred Language: Preferred Language: Preferred Language for Discussing Health Care (patient/designee)Lynne lowery Patient Preferred Pharmacy: Patient Preferred Pharmacy Statement: I have reviewed and updated the patient's preferred pharmacy selection for today's visit. Advanced Directives: Advance Directive/DNRno Family Violence Adult: Abuse Screen: Are you or have you been threatened or abused physically, emotionally, or sexually by anyoneno Learning Assessment (Patient): Learning Assessment (Patient): Patient is Able to be Assessed for Learningyes Factors Influencing Readiness to Learnacuteness of illness Factors that Impact Ability to Learnnone Devices/Methods Used to Communicatenone Learning Preferencesaudio Cultural Considerationsnone Developmental Considerationsnone Congregation Considerationsnone Learning Assessment (Other Learner): Learning Assessment (Other Learner): Other learner availableno Pressure Injury/TB/Substance: Pressure Injury: Do you have a coughno Smoking Statusnever smoker Alcohol Usedenies Drug Usedenies Admission Risk Screen: Significant IndicatorsComplete CAGE: CAGE: Is this an injured patient at a Trauma Center ([facility]/[place]/[facility]/[place]): no Electronic Signatures: Rosa Maria Lassiter (RN) (Signed 05-Feb-2023 09:13) Authored: Preferred Language, Patient Preferred Pharmacy, Advanced Directives, Family Violence Adult, Learning Assessment (Patient), Learning Assessment (Other Learner), Pressure Injury/TB/Substance, Pressure Injury, CAGE Last Updated: 05-Feb-2023 09:13 by Rosa Maria Lassiter (MARIA EUGENIA) [facility] Triage - EDon 02-05-2023 Triage - ED Quick Triage: Are You no Have You Given In The Last 6 Weeksno Are You Currently Breastfeedingno Chart Review: ARRIVAL INFORMATION Mode of Arrival: private vehicle CHIEF COMPLAINT SYLVIA MANCUSO is a Female patient with a chief complaint of fall (pt brought in from work reports lost balance fell denies LOC, neck or back pain.. reports right hip and knee pain). Triage Date/Time: 05-Feb-2023 09:06 JACQUELINE: 3 Pain Rating (0-10): 8 = Severe Pain location: right hip/ankle Vital Signs: Temperature: 98.2F ( 36.7C) Blood Pressure: 140/72 Mean: Heart Rate: 85 Respiratory Rate: 18 Pulse Oximetry: 100% on room air, no respiratory support. Height: 5 feet 5.00 inches. 165.1 CM Weight: 187.3 pounds. Calculated 85.0 kg. Calculated BMI (kg/m2): 31.183 Calculated BSA (m2) 1.97 [place] Coma Scale: Best Eye Response: (E4) spontaneous Best Motor Response: (M6) obeys commands Best Verbal Response: (V5) oriented Ashlyn Score: 15 Allergies: yes Last menstrual period: unknown Patient has homicidal thoughts: no Risk Screens Suicide Risk Screen In the Past Month: Have you wished you were or wished you could go to sleep and not wake up no In the Past Month: Have you had any actual thoughts of killing yourself no In Your Lifetime: Have you ever done anything, started to do anything, or prepared to do anything to end your life no Mistry Fall Scale Screening Has the patient fallen before (or is the patient in the ED as a result of a fall) has had a fall Does the patient have an impaired gait does not have impaired gait Is the patient cognitively impaired not cognitively impaired Mistry Fall Scale History of falling (immediate or previous) yes (25) Secondary Diagnosis yes (15) Intravenous Therapy/ Heparin/Saline Lock no (0) Gait/Transferring normal/bedrest/wheelc hair (0) Ambulatory Aids none/bedrest/nurse assist (0) Mental Status oriented to own ability (0) Mistry Fall Risk Score: 40 Interventions: Mistry Fall Interventions: MODERATE INTERVENTIONS: *Low Interventions Plus: * falls risk band/sticker applied to patient, *yellow non-skid footwear, *instruct to call for assistance before getting out of bed, *bed/chair/bedside commode/toilet alarms, *sensory devices/ambulatory aides available and in reach, *medications reviewed for potential side effects and care planning. TRAVEL HISTORY Travel History Coronavirus Screening: no exposure or symptoms Travel Exposure History: NO travel to International locations in the past 30 days PAIN Pain Scale Used: JIMI Pain Rating (0-10): 8 = Severe Past Medical History: Past Medical History Reviewedyes Anxiety: Past Medical History, Active Pacemaker: Past Medical History, Active Cardiomyopathy: Past Medical History, Active Left BBB: Past Medical History, Active Electronic Signatures: Rosa Maria Lassiter (MARIA EUGENIA) (Signed 05-Feb-2023 09:10) Entered: Risk Screens, Pain, Travel History, Chart Review, Scores, Past Medical History Authored: Quick Triage, Risk Screens, Pain, Travel History, Chart Review, Scores, Past Medical History Last Updated: 05-Feb-2023 09:10 by Rosa Maria Lassiter) [facility] REMOTE CHECKon 3 AV Delay Adaptive Paced Minimum (ms) 130 ms [facility] AV Delay Adaptive Sensed Minimum (ms) 100 ms [facility] Vasile LV Pacing Amplitude (volts) 3.0 V [facility] Vaisle LV Pacing Pulse Width (ms) 0.7 ms [facility] vasile LV Sensing Amplitude (mvolts) 1.0 mV [facility] Vasile RA Pacing Amplitude (volts) 2.0 V [facility] Vasile RA Pacing Polarity BI [facility] Vasile RA Pacing Pulse Width (ms) 0.4 ms [facility] Vasile RA Sensing Amplitude (mvolts) 0.25 mV [facility] Vasile RA Sensing Polarity BI [facility] Vasile RV Pacing Amplitude (volts) 2.0 V [facility] Vasile RV Pacing Polarity BI [facility] Vasile RV Pacing Pulse Width (ms) 0.4 ms [facility] Vasile RV Sensing Amplitude (mvolts) 0.3 mV [facility] Vasile RV Sensing Polarity BI [facility] Detection Configuration (Vent) 2 - Zone [facility] FastVT_Detection Interval 316 ms [facility] FastVT_Therapy Configuration 1 ATP(s) + 6 Shock(s) [facility] ICD FastVT DetectionStatus ENABLED [facility] ICD-AMS EPISODES 170 {beats}/min [facility] ICD-ATP Episodes (Vent) 0 C [facility] ICD-ATRIALFIBRILLATION 0 Cl [facility] ICD-Device Mfg BSX [facility] ICD-LEADIMPEDANCEATRIAL 797 ohm [facility] ICD-Percent Pacing (Atrial) 2 % [facility] ICD-Percent Pacing (Vent) 100 % [facility] ICD-Shocks Aborted (Vent) 0 [facility] [id number] 0 [facility] ICD-SHOCKSABORTED 0 [facility] ICD-SHOCKSDELIVEREDVENT RICULAR 0 [facility] ICD-Ventricular Fibrillation 0 [facility] ICD-VVDELAY_MS 0 ms [facility] Implant Date 09/10/2020 [facility] Lead Impedance (LV) 753 ohm [facility] Lead Impedance (RV) 671 ohm [facility] Lead Impedance High Voltage 82 ohm [facility] Lead1 Mfg MDT [facility] Lead2 Mfg MDT [facility] Lead3 Mfg GDT [facility] Lead4 Mfg GDT [facility] Location RV [facility] Location RA [facility] Lower Rate (bpm) 60 {beats}/min [facility] LV PACING % 100 % [facility] Max Sensor Rate (bpm) 130 {beats}/min [facility] MDT_PROG_TACHY_ZONE_DET ECTIONS_STATUS ENABLED [facility] Model G151 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-D [facility] Model 0180 Endotak Relianc e SG [facility] Model 4135 Dextrus [facility] Pacing Mode DDD [facility] Serial Number [id number] [facility] Serial Number [id number] [facility] Serial Number [id number] [facility] Serial Number [id number] [facility] Serial Number [id number] [facility] Test Charge Time 10.4 s [facility] Therapy Status (Vent) Enabled [facility] Thresh LV Capture Amplitude (volts) 1.3 V [facility] Thresh LV Capture Duration (ms) 0.7 ms [facility] Thresh RA Capture Amplitude (volts) 0.6 V [facility] Thresh RA Capture Duration (ms) 0.4 ms [facility] Thresh RV Capture Amplitude (VOLTS) 0.8 V [facility] Thresh RV Capture Duration (MS) 0.4 ms [facility] Tracking Rate (bpm) 135 {beats}/min [facility] VF Zone Detection Interval 316 ms [facility] VF Zone Therapy Configuration 1 ATP(s) + 6 Shock(s) [facility] No Panel Informationon 12-30 BLANK _ [facility] ICD-ATRIALTACHYCARDIA 0 [facility] ICD-Fast Ventricular Tachycardia 0 [facility] Implant Date 07/11/2010 [facility] [facility] 06[facility]09[facility]2010 [facility] Location LV [facility] Model 5071 Screw-In [facility] ICD REMOTE CHECKon 3 AV Delay Adaptive Paced Minimum (ms) 130 ms [facility] AV Delay Adaptive Sensed Minimum (ms) 100 ms [facility] Vasile LV Pacing Amplitude (volts) 3.0 V [facility] Vasile LV Pacing Pulse Width (ms) 0.7 ms [facility] vasile LV Sensing Amplitude (mvolts) 1.0 mV [facility] Vasile RA Pacing Amplitude (volts) 2.0 V [facility] Vasile RA Pacing Polarity BI [facility] Vasile RA Pacing Pulse Width (ms) 0.4 ms [facility] Vasile RA Sensing Amplitude (mvolts) 0.25 mV [facility] Vasile RA Sensing Polarity BI [facility] Vasile RV Pacing Amplitude (volts) 2.0 V [facility] Vasile RV Pacing Polarity BI [facility] Vasile RV Pacing Pulse Width (ms) 0.4 ms [facility] Vasile RV Sensing Amplitude (mvolts) 0.3 mV [facility] Vasile RV Sensing Polarity BI [facility] Detection Configuration (Vent) 2 - Zone [facility] FastVT_Detection Interval 316 ms [facility] FastVT_Therapy Configuration 1 ATP(s) + 6 Shock(s) [facility] ICD FastVT DetectionStatus ENABLED [facility] ICD-AMS EPISODES 170 {beats}/min [facility] ICD-ATP Episodes (Vent) 0 C [facility] ICD-ATRIALFIBRILLATION 0 Cl [facility] ICD-Device Mfg BSX [facility] ICD-LEADIMPEDANCEATRIAL 800 ohm [facility] ICD-Percent Pacing (Atrial) 1 % [facility] ICD-Percent Pacing (Vent) 100 % [facility] ICD-Shocks Aborted (Vent) 0 [facility] [id number] [facility] ICD-SHOCKSABORTED 0 [facility] ICD-SHOCKSDELIVEREDVENT RICULAR 0 [facility] ICD-Ventricular Fibrillation 0 [facility] ICD-VVDELAY_MS 0 ms [facility] Implant Date 09/10/2020 [facility] Lead Impedance (LV) 733 ohm [facility] Lead Impedance (RV) 603 ohm [facility] Lead Impedance High Voltage 74 ohm [facility] Lead1 Mfg MDT [facility] Lead2 Mfg MDT [facility] Lead3 Mfg GDT [facility] Lead4 Mfg GDT [facility] Location RV [facility] Location RA [facility] Lower Rate (bpm) 60 {beats}/min [facility] LV PACING % 100 % [facility] Max Sensor Rate (bpm) 130 {beats}/min [facility] MDT_PROG_TACHY_ZONE_DET ECTIONS_STATUS ENABLED [facility] Model G151 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-D [facility] Model 0180 Endotak Relianc e SG [facility] Model 4135 Dextrus [facility] Pacing Mode DDD [facility] Serial Number [id number] [facility] Serial Number [id number] [facility] Serial Number [id number] [facility] Serial Number [id number] [facility] Serial Number [id number] [facility] Test Charge Time 10.4 s [facility] Therapy Status (Vent) Enabled [facility] Thresh LV Capture Amplitude (volts) 1.3 V [facility] Thresh LV Capture Duration (ms) 0.7 ms [facility] Thresh RA Capture Amplitude (volts) 0.6 V [facility] Thresh RA Capture Duration (ms) 0.4 ms [facility] Thresh RV Capture Amplitude (VOLTS) 0.8 V [facility] Thresh RV Capture Duration (MS) 0.4 ms [facility] Tracking Rate (bpm) 135 {beats}/min [facility] VF Zone Detection Interval 316 ms [facility] VF Zone Therapy Configuration 1 ATP(s) + 6 Shock(s) [facility] No Panel Informationon 09-10 BLANK _ [facility] ICD-ATRIALTACHYCARDIA 0 [facility] ICD-Fast Ventricular Tachycardia 0 [facility] Implant Date 07/11/2010 [facility] Implant Date 06/09/2010 [facility] Location LV [facility] Model 5071 Screw-In [facility] Basophil percentageOrdered B y: Dr. Rodríguez on 08-31-2022 Chloride [Moles/Vol] 104 mmol/L 98-107 [facility] Glucose [Mass/Vol] 205 mg/dL 74-[address] [facility] Comment on above: Glucose result great er than or equal to 200 mg/dLsuggests DIABETES MELLITUS per A.D.A. criteria. Potassium [Moles/Vol] 3.9 mmol/L 3.5-5.1 [facility] Sodium [Moles/Vol] 140 mmol/L 136-[address] [facility] Laboratory - Chemistry and C hemistry - challengeOrdered By: Dr. Rodríguez on 08-31-2022 CO2 [Moles/Vol] 30.0 mmol/L 21.0-32.0 [facility] Urea nitrogen/Creatinine [Mass ratio] 12.2 mg/mg 04-02 [facility] No Panel InformationOrdered By: Dr. Rodríguez on 08-31-2022 Estimated GFR (MDRD) Amer 76 mL/min >60 [facility] Comment on above: GFR Calc Estimated GFR (MDRD) Non-Af Amer 63 mL/min >60 [facility] Comment on above: Non- GFR Calc Serum or plasma calcium albertina urement (mass/volume)Ordered By: Dr. Rodríguez on 08-31-2022 Calcium [Mass/Vol] 9.1 mg/dL 8.5-10.[address] [facility] Serum or plasma creatinine m easurement (mass/volume)Ordered By: Dr. Rodríguez on 08-31-2022 Creatinine [Mass/Vol] 0.99 mg/dL 0.55-1.02 [facility] Comment on above: The validity of the calculated GFR & GFRAA in patients over 70 years has not been determined. Clinical correlation is essential. Serum or plasma urea nitroge n measurement (mass/volume)Ordered By: Dr. Rodríguez on 08-31-2022 Urea nitrogen [Mass/Vol] 12 mg/dL 7-18 [facility] Thin prep Papanicolaou smear with manual screeningOrdered By: Dr. Rodríguez on 08-31-2022 Thin prep Papanicolaou smear with manual screening 6 5-15 [facility] Basophil percentageOrdered B y: Dr. Rodríguez on 08-24-2022 Basophil percentage 10-25 SEEN /hpf 0-5 [facility] Chloride [Moles/Vol] 103 mmol/L 98-107 [facility] Glucose [Mass/Vol] 176 mg/dL 74-[address] [facility] Comment on above: Fasting Glucose resu lt greater than or equal to 126 mg/dL suggests DIABETES MELLITUS per A.D.A. criteria. Potassium [Moles/Vol] 3.0 mmol/L 3.5-5.1 [facility] Sodium [Moles/Vol] 141 mmol/L 136-[address] [facility] Bilirubin Test strip Ql (U)O rdered By: Dr. Rodríguez on 08-24-2022 Bilirubin Ql (U) Negative Negative [facility] Calcium oxalate crystals det ection in urine sediment by light microscopyOrdered By: Dr. Rodríguez on 08-24-2022 Calcium oxalate crystals LM Ql (Urine sed) 1+ /hpf [facility] Ketones Test strip Ql (U)Ord ered By: Dr. Rodríguez on 08-24-2022 Ketones Ql (U) 5 mg/dl Negative [facility] Laboratory - Chemistry and C hemistry - challengeOrdered By: Dr. Rodríguez on 08-24-2022 CO2 [Moles/Vol] 28.0 mmol/L 21.0-32.0 [facility] Urea nitrogen/Creatinine [Mass ratio] 15.6 mg/mg 10-20 [facility] Mucus LM Ql (Urine sed)Order ed By: Dr. Rodríguez on 08-24-2022 Mucus Ql (Urine sed) 1+ /hpf [facility] Nitrite Test strip Ql (U)Ord ered By: Dr. Rodríguez on 08-24-2022 Nitrite Ql (U) Negative Negative [facility] No Panel InformationOrdered By: Dr. Rodríguez on 08-24-2022 Estimated GFR (MDRD) Amer 56 mL/min >60 [facility] Comment on above: GFR Calc Estimated GFR (MDRD) Non-Af Amer 47 mL/min >60 [facility] Comment on above: Non- GFR Calc Protein Test strip Ql (U)Ord ered By: Dr. Rodríguez on 08-24-2022 Protein Ql (U) 30 mg/dl Negative [facility] Serum or plasma calcium albertina urement (mass/volume)Ordered By: Dr. Rodríguez on 08-24-2022 Calcium [Mass/Vol] 9.4 mg/dL 8.5-10.[address] [facility] Serum or plasma creatinine m easurement (mass/volume)Ordered By: Dr. Rodríguez on 08-24-2022 Creatinine [Mass/Vol] 1.28 mg/dL 0.55-1.02 [facility] Comment on above: The validity of the calculated GFR & GFRAA in patients over 70 years has not been determined. Clinical correlation is essential. Serum or plasma urea nitroge n measurement (mass/volume)Ordered By: Dr. Rodríguez on 08-24-2022 Urea nitrogen [Mass/Vol] 20 mg/dL 7-18 [facility] Squamous epithelial cells de tection in urine sediment by light microscopyOrdered By: Dr. Rodríguez on 08-24-2022 Epithelial cells.squamous LM Ql (Urine sed) 0 SEEN /hpf 5-10 [facility] Thin prep Papanicolaou smear with manual screeningOrdered By: Dr. Rodríguez on 08-24-2022 Thin prep Papanicolaou smear with manual screening 10 5-15 [facility] Urine blood detectionOrdered By: Dr. Rodríguez on 08-24-2022 RBC Ql (U) Negative Negative [facility] RBC Ql (U) 0 SEEN /hpf 0-5 [facility] Urine clarityOrdered By: Dr. Rodríguez on 08-24-2022 Clarity (U) Clear Clear [facility] Urine color determinationOrd ered By: Dr. Rodríguez on 08-24-2022 Color (U) Yellow Yellow [facility] Urine glucose detectionOrder ed By: Dr. Rodríguez on 08-24-2022 Glucose Ql (U) Normal mg/dl Normal [facility] Urine leukocyte esterase det ection by dipstickOrdered By: Dr. Rodríguez on 08-24-2022 Leukocyte esterase Test strip Ql (U) 100 /ul Negative [facility] Urine pHOrdered By: Dr. Santos hner on 08-24-2022 pH (U) 6.0 [pH] 5.0 - 8.0 [facility] Urine sediment bacteria coun t by microscopy (number/high power field)Ordered By: Dr. Rodríguez on 08-24-2022 Bacteria LM.HPF (Urine sed) [#/Area] 0 /[HPF] None Seen [facility] Urine specific gravity measu rementOrdered By: Dr. Rodríguez on 08-24-2022 Specific gravity (U) [Rel density] 1.020 1.002-1.030 [facility] Urobilinogen Auto test strip Ql (U)Ordered By: Dr. Rodríguez on 08-24-2022 Urobilinogen Ql (U) 1 mg/dl Normal [facility] Absolute lymphocyte countOrd ered By: Dr. Dobbs on 08-18-2022 Lymphocytes Auto (Unsp spec) [#/Vol] 1.73 10*3/uL 0.83-4.51 [facility] Basophil percentageOrdered B y: Dr. Dobbs on 08-18-2022 Basophils/100 WBC (Bld) 0.6 % 0-1 [facility] Chloride [Moles/Vol] 109 mmol/L 98-107 [facility] Eosinophils/100 WBC (Bld) 1.0 % 0-5 [facility] Glucose [Mass/Vol] 120 mg/dL 74-[address] [facility] Comment on above: Fasting Glucose resu lt from 100 to 125 mg/dL suggests IMPAIRED HOMEOSTASIS per A.D.A. criteria. Neutrophils (Bld) [#/Vol] 4.8 10*3/uL 2.0-7.7 [facility] Neutrophils/100 WBC (Bld) 68.4 % 47-70 [facility] Potassium [Moles/Vol] 3.8 mmol/L 3.5-5.1 [facility] Sodium [Moles/Vol] 142 mmol/L 136-[address] [facility] WBC (Bld) [#/Vol] 7.0 10*3/uL 4.4-11.[address] [facility] Blood erythrocytes count (nu mber/volume)Ordered By: Dr. Dobbs on 08-18-2022 RBC (Bld) [#/Vol] 5.02 10*6/uL 4.2-5.4 [facility] Blood hemoglobin measurement (mass/volume)Ordered By: Dr. Dobbs on 08-18-2022 Hemoglobin (Bld) [Mass/Vol] 13.7 g/dL 12.0-15.0 [facility] Blood lymphocytes/100 leukoc ytesOrdered By: Dr. Dobbs on 08-18-2022 Lymphocytes/100 WBC (Bld) 24.8 % 19-41 [facility] Blood monocytes/100 leukocyt esOrdered By: Dr. Dobbs on 08-18-2022 Monocytes/100 WBC (Bld) 4.9 % 0-10 [facility] Blood platelet mean volumeOr dered By: Dr. Dobbs on 08-18-2022 Platelet mean volume (Bld) [Entitic vol] 10.1 fL 6.2-12.0 [facility] Determination of erythrocyte mean corpuscular volume (MCV)Ordered By: Dr. Dobbs on 08-18-2022 MCV (RBC) [Entitic vol] 85.9 fL 81-99 [facility] Hematocrit Auto (Bld) [Volum e fraction]Ordered By: Dr. Dobbs on 08-18-2022 Hematocrit (Bld) [Volume fraction] 43.1 % 37-47 [facility] Influenza virus A and B and SARS-CoV-2 (COVID-19) Ag panel - Upper respiratory specimOrdered By: Dr. Dobbs on 08-18-2022 SARS-CoV-2 (COVID-19) RNA AMY+probe Ql (Resp) [facility] Laboratory - Chemistry and C hemistry - challengeOrdered By: Dr. Dobbs on 08-18-2022 CO2 [Moles/Vol] 22.0 mmol/L 21.0-32.0 [facility] Natriuretic peptide B (Bld) [Mass/Vol] 18.3 pg/mL 0-100 [facility] Urea nitrogen/Creatinine [Mass ratio] 14.4 mg/mg 10-20 [facility] Laboratory - Hematology and Cell countsOrdered By: Dr. Dobbs on 08-18-2022 Erythrocyte distribution width (RBC) [Entitic vol] 46.5 fL 35.1-43.9 [facility] Erythrocyte distribution width (RBC) [Ratio] 15.1 % 11.6-14.6 [facility] Immature granulocytes/100 WBC (Bld) 0.300 % 0.0-0.9 [facility] Comment on above: IG% - Immature Granu locytes (promyelocytes, myelocytes and metamyelocytes) > 1% indicates that a LEFT SHIFT is Present. MCH (RBC) [Entitic mass] 27.3 pg 27.0-32.0 [facility] Nucleated RBC/100 WBC (Bld) [Ratio] 0 % 0-5 [facility] MCHC Auto (RBC) [Mass/Vol]Or dered By: Dr. Dobbs on 08-18-2022 MCHC (RBC) [Mass/Vol] 31.8 g/dL 32-36 [facility] No Panel InformationOrdered By: Dr. Dobbs on 08-18-2022 Estimated Creatinine Clearance Calc 57.59 ml/min [facility] Estimated GFR (MDRD) Amer 72 mL/min >60 [facility] Comment on above: GFR Calc Estimated GFR (MDRD) Non-Af Amer 59 mL/min >60 [facility] Comment on above: Non- GFR Calc Troponin I High Sensitivity 3 pg/mL 3.0-54.0 [facility] Comment on above: Please Note: [place] t Units and Gender Specific Reference Ranges. For more information see Policy Stat Procedure [place] High Sensitivity Troponin (TNIH) and attachments. Platelets bldOrdered By: Dr. Dobbs on 08-18-2022 Platelets (Bld) [#/Vol] 229 10*3/uL 150-450 [facility] Serum or plasma calcium albertina urement (mass/volume)Ordered By: Dr. Dobbs on 08-18-2022 Calcium [Mass/Vol] 9.7 mg/dL 8.5-10.[address] [facility] Serum or plasma creatinine m easurement (mass/volume)Ordered By: Dr. Dobbs on 08-18-2022 Creatinine [Mass/Vol] 1.04 mg/dL 0.55-1.02 [facility] Comment on above: The validity of the calculated GFR & GFRAA in patients over 70 years has not been determined. Clinical correlation is essential. Serum or plasma urea nitroge n measurement (mass/volume)Ordered By: Dr. Dobbs on 08-18-2022 Urea nitrogen [Mass/Vol] 15 mg/dL 7-18 [facility] Thin prep Papanicolaou smear with manual screeningOrdered By: Dr. Dobbs on 08-18-2022 Thin prep Papanicolaou smear with manual screening 11 10-26 [facility] ICD REMOTE CHECKon 2 AV Delay Adaptive Paced Minimum (ms) 130 ms [facility] AV Delay Adaptive Sensed Minimum (ms) 100 ms [facility] Vasile LV Pacing Amplitude (volts) 3 V [facility] Vasile LV Pacing Pulse Width (ms) 0.7 ms [facility] vasile LV Sensing Amplitude (mvolts) 1 mV [facility] Vasile RA Pacing Amplitude (volts) 2 V [facility] Vasile RA Pacing Polarity BI [facility] Vasile RA Pacing Pulse Width (ms) 0.4 ms [facility] Vasile RA Sensing Amplitude (mvolts) 0.25 mV [facility] Vasile RA Sensing Polarity BI [facility] Vasile RV Pacing Amplitude (volts) 2 V [facility] Vasile RV Pacing Polarity BI [facility] Vasile RV Pacing Pulse Width (ms) 0.4 ms [facility] Vasile RV Sensing Amplitude (mvolts) 0.3 mV [facility] Vasile RV Sensing Polarity BI [facility] Detection Configuration (Vent) 2 - Zone [facility] FastVT_Detection Interval 316 ms [facility] FastVT_Therapy Configuration 1 ATP(s) + 6 Shock(s) [facility] ICD FastVT DetectionStatus ENABLED [facility] ICD-AMS EPISODES 170 {beats}/min [facility] ICD-ATP Episodes (Vent) 0 C [facility] ICD-ATRIALFIBRILLATION 0 Cl [facility] ICD-Device Mfg BSX [facility] ICD-LEADIMPEDANCEATRIAL 798 ohm [facility] ICD-Percent Pacing (Atrial) 1 % [facility] ICD-Percent Pacing (Vent) 100 % [facility] ICD-Shocks Aborted (Vent) 0 [facility] [id number] 0 [facility] ICD-SHOCKSABORTED 0 [facility] ICD-SHOCKSDELIVEREDVENT RICULAR 0 [facility] ICD-Ventricular Fibrillation 0 [facility] ICD-VVDELAY_MS 0 ms [facility] Implant Date 09/10/2020 [facility] Lead Impedance (LV) 723 ohm [facility] Lead Impedance (RV) 557 ohm [facility] Lead Impedance High Voltage 72 ohm [facility] Lead1 Mfg MDT [facility] Lead2 Mfg MDT [facility] Lead3 Mfg GDT [facility] Lead4 Mfg GDT [facility] Location RV [facility] Location RA [facility] Lower Rate (bpm) 60 {beats}/min [facility] LV PACING % 100 % [facility] Max Sensor Rate (bpm) 130 {beats}/min [facility] MDT_PROG_TACHY_ZONE_DET ECTIONS_STATUS ENABLED [facility] Model G151 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-D [facility] Model 0180 Endotak Relianc e SG [facility] Model 4135 Dextrus [facility] Pacing Mode DDD [facility] Serial Number [id number] [facility] Serial Number [id number] [facility] Serial Number [id number] [facility] Serial Number [id number] [facility] Serial Number [id number] [facility] Test Charge Time 10.2 s [facility] Therapy Status (Vent) Enabled [facility] Thresh LV Capture Amplitude (volts) 1.3 V [facility] Thresh LV Capture Duration (ms) 0.7 ms [facility] Thresh RA Capture Amplitude (volts) 0.6 V [facility] Thresh RA Capture Duration (ms) 0.4 ms [facility] Thresh RV Capture Amplitude (VOLTS) 0.8 V [facility] Thresh RV Capture Duration (MS) 0.4 ms [facility] Tracking Rate (bpm) 135 {beats}/min [facility] VF Zone Detection Interval 316 ms [facility] VF Zone Therapy Configuration 1 ATP(s) + 6 Shock(s) [facility] No Panel Informationon 06-11 BLANK _ [facility] ICD-ATRIALTACHYCARDIA 0 [facility] ICD-Fast Ventricular Tachycardia 0 [facility] Implant Date 07/11/2010 [facility] Implant Date 06/09/2010 [facility] Location LV [facility] Model 5071 Screw-In [facility] Absolute lymphocyte countOrd ered By: Dr. Garrido on 04-27-2022 Lymphocytes Auto (Unsp spec) [#/Vol] 1.14 10*3/uL 0.83-4.51 [facility] Basophil percentageOrdered B y: Dr. Garrido on 04-27-2022 Basophils/100 WBC (Bld) 0.6 % 0-[address] [facility] Chloride [Moles/Vol] 104 mmol/L 98-107 [facility] Eosinophils/100 WBC (Bld) 0.4 % 0-5 [facility] Glucose [Mass/Vol] 114 mg/dL 74-[address] [facility] Comment on above: Fasting Glucose resu lt from 100 to 125 mg/dL suggests IMPAIRED HOMEOSTASIS per A.D.A. criteria. Neutrophils (Bld) [#/Vol] 5.4 10*3/uL 2.0-7.7 [facility] Neutrophils/100 WBC (Bld) 74.6 % 47-70 [facility] Potassium [Moles/Vol] 3.0 mmol/L 3.5-5.1 [facility] Sodium [Moles/Vol] 142 mmol/L 136-[address] [facility] WBC (Bld) [#/Vol] 7.2 10*3/uL 4.4-11.[address] [facility] Blood erythrocytes count (nu mber/volume)Ordered By: Dr. Garrido on 04-27-2022 RBC (Bld) [#/Vol] 4.59 10*6/uL 4.2-5.4 [facility] Blood hemoglobin measurement (mass/volume)Ordered By: Dr. Garrido on 04-27-2022 Hemoglobin (Bld) [Mass/Vol] 12.4 g/dL 12.0-15.0 [facility] Blood lymphocytes/100 leukoc ytesOrdered By: Dr. Garrido on 04-27-2022 Lymphocytes/100 WBC (Bld) 15.8 % 19-41 [facility] Blood monocytes/100 leukocyt esOrdered By: Dr. Garrido on 04-27-2022 Monocytes/100 WBC (Bld) 7.2 % 0-10 [facility] Blood platelet mean volumeOr dered By: Dr. Garrido on 04-27-2022 Platelet mean volume (Bld) [Entitic vol] 10.2 fL 6.2-12.0 [facility] Determination of erythrocyte mean corpuscular volume (MCV)Ordered By: Dr. Garrido on 04-27-2022 MCV (RBC) [Entitic vol] 86.7 fL 81-99 [facility] Hematocrit Auto (Bld) [Volum e fraction]Ordered By: Dr. Garrido on 04-27-2022 Hematocrit (Bld) [Volume fraction] 39.8 % 37-47 [facility] Laboratory - Chemistry and C hemistry - challengeOrdered By: Dr. Garrido on 04-27-2022 CO2 [Moles/Vol] 31.0 mmol/L 21.0-32.0 [facility] Natriuretic peptide B (Bld) [Mass/Vol] 20.6 pg/mL 0-100 [facility] Urea nitrogen/Creatinine [Mass ratio] 13.3 mg/mg 10-20 [facility] [facility] - Hematology and Cell countsOrdered By: Dr. Garrido on 04-27-2022 Erythrocyte distribution width (RBC) [Entitic vol] 43.4 fL 35.1-43.9 [facility] Erythrocyte distribution width (RBC) [Ratio] 13.7 % 11.6-14.6 [facility] Immature granulocytes/100 WBC (Bld) 1.400 % 0.0-0.9 [facility] Comment on above: IG% - Immature Granu locytes (promyelocytes, myelocytes and metamyelocytes) > 1% indicates that a LEFT SHIFT is Present. MCH (RBC) [Entitic mass] 27.0 pg 27.0-32.0 [facility] Nucleated RBC/100 WBC (Bld) [Ratio] 0 % 0-5 [facility] MCHC Auto (RBC) [Mass/Vol]Or dered By: Dr. Garrido on 04-27-2022 MCHC (RBC) [Mass/Vol] 31.2 g/dL 32-36 [facility] No Panel InformationOrdered By: Dr. Garrido on 04-27-2022 D-Dimer Quantitative (PE/DVT) 0.34 FEU/ug/m 0.27-0.49 [facility] Comment on above: NORMAL D-Dimer level (<0.50) indicates no DVT or PE. Estimated Creatinine Clearance Calc 61.11 ml/min [facility] Estimated GFR (MDRD) Amer 77 mL/min >60 [facility] Comment on above: GFR Calc Estimated GFR (MDRD) Non-Af Amer 64 mL/min >60 [facility] Comment on above: Non- GFR Calc Troponin I High Sensitivity 4 pg/mL 3.0-54.0 [facility] Comment on above: Please Note: [place] t Units and Gender Specific Reference Ranges. For more information see Policy Stat Procedure [place] High Sensitivity Troponin (TNIH) and attachments. Platelets bldOrdered By: Dr. Garrido on 04-27-2022 Platelets (Bld) [#/Vol] 253 10*3/uL 150-450 [facility] Serum or plasma calcium albertina urement (mass/volume)Ordered By: Dr. Garrido on 04-27-2022 Calcium [Mass/Vol] 8.5 mg/dL 8.5-10.[address] [facility] Serum or plasma creatinine m easurement (mass/volume)Ordered By: Dr. Garrido on 04-27-2022 Creatinine [Mass/Vol] 0.98 mg/dL 0.55-1.02 [facility] Comment on above: The validity of the calculated GFR & GFRAA in patients over 70 years has not been determined. Clinical correlation is essential. Serum or plasma urea nitroge n measurement (mass/volume)Ordered By: Dr. Garrido on 04-27-2022 Urea nitrogen [Mass/Vol] 13 mg/dL 12-29 [facility] Thin prep Papanicolaou smear with manual screeningOrdered By: Dr. Garrido on 04-27-2022 Thin prep Papanicolaou smear with manual screening 7 -15 [facility] [id number] 04-20-2022 SARS-CoV-2 (COVID-19) RNA AMY+probe Ql (Unsp spec) Negative Normal Negative [facility] ([place]) Comment on above: Performed By: #### C OVD19, FLURSV #### [address] [address] SARS-CoV-2 (COVID-19) RNA AMY+probe Ql (Unsp spec) Normal [facility] ([place]) Comment on above: Result Comment: Nega tive results do not preclude SARS-CoV-2 infection and should not be used as the sole basis for patient management decisions. Negative results must be combined with clinical observations, patient history, and epidemiological information. There is a risk of false negative values resulting from improperly collected, transported, or handled specimens. There is a risk of false negative values due to the presence of sequence variants in the pathogen targets of the assay, procedural errors, amplification inhibitors in specimens, or inadequate numbers of organisms for amplification. JASON SARS-CoV-2 Assay is a Real-Time reverse-transcriptase polymerase chain reaction (RT-PCR) based qualitative in vitro diagnostic test intended for the qualitative detection of nucleic acid from the SARS-CoV-2 in nasopharyngeal swab specimens collected from individuals suspected of COVID-19 by their healthcare provider. Testing is limited to laboratories certified under the Clinical Laboratory Improvement Amendments of 1988 (CLIA), 42 U.S.C. ?263a, to perform moderate and high complexity tests. COVID-19 Int Performed By: #### C OVD19, FLURSV #### [address] [address] FLURSVon 04-20-2022 Flu A PCR (AO) Negative Normal Negative [facility] ([place]) Comment on above: Result Comment: Posi tive Results: Positive Flu A/B or RSV for by PCR. Positive test results do not rule out bacterial infection or co-infection with other pathogens. Test results should be interpreted in conjunction with other laboratory and clinical data. Negative Results: Negative for by PCR. Negative test results do not preclude influenza virus or RSV infection and should not be used as the sole basis for diagnosis, treatment, or other management decisions. There is a risk of false negative RSV results when at low concentration and in the presence of co-infection with high concentration of influenza A. Invalid Results: An Invalid result (INV) was obtained. The test was repeated with similar results. REPEAT COLLECTION AND TESTING IS RECOMMENDED. The Jason Flu A/B & RSV Assay is a real-time polymerase chain reaction (PCR) based qualitative in vitro diagnostic test for the direct detection and differentiation of influenza A virus, influenza B virus, and respiratory syncytial virus (RSV) nucleic acid in nasopharyngeal swab (SUPERINTENDENT NONSELLING) specimens from patients with signs and symptoms of respiratory infection in conjunction with clinical and laboratory findings. The test is intended for use as an aid in the differential diagnosis of influenza A virus, influenza B virus, and RSV in humans and is not intended to detect influenza C. Performed By: #### C OVD19, FLURSV #### [address] [address] Flu B PCR (AO) Negative Normal Negative [facility] ([place]) Comment on above: Result Comment: Posi tive Results: Positive Flu A/B or RSV for by PCR. Positive test results do not rule out bacterial infection or co-infection with other pathogens. Test results should be interpreted in conjunction with other laboratory and clinical data. Negative Results: Negative for by PCR. Negative test results do not preclude influenza virus or RSV infection and should not be used as the sole basis for diagnosis, treatment, or other management decisions. There is a risk of false negative RSV results when at low concentration and in the presence of co-infection with high concentration of influenza A. Invalid Results: An Invalid result (INV) was obtained. The test was repeated with similar results. REPEAT COLLECTION AND TESTING IS RECOMMENDED. The Jason Flu A/B & RSV Assay is a real-time polymerase chain reaction (PCR) based qualitative in vitro diagnostic test for the direct detection and differentiation of influenza A virus, influenza B virus, and respiratory syncytial virus (RSV) nucleic acid in nasopharyngeal swab (SUPERINTENDENT NONSELLING) specimens from patients with signs and symptoms of respiratory infection in conjunction with clinical and laboratory findings. The test is intended for use as an aid in the differential diagnosis of influenza A virus, influenza B virus, and RSV in humans and is not intended to detect influenza C. Performed By: #### C OVD19, FLURSV #### [address] [address] RSV PCR (AO) Negative Normal Negative [facility] ([place]) Comment on above: Result Comment: Posi tive Results: Positive Flu A/B or RSV for by PCR. Positive test results do not rule out bacterial infection or co-infection with other pathogens. Test results should be interpreted in conjunction with other laboratory and clinical data. Negative Results: Negative for by PCR. Negative test results do not preclude influenza virus or RSV infection and should not be used as the sole basis for diagnosis, treatment, or other management decisions. There is a risk of false negative RSV results when at low concentration and in the presence of co-infection with high concentration of influenza A. Invalid Results: An Invalid result (INV) was obtained. The test was repeated with similar results. REPEAT COLLECTION AND TESTING IS RECOMMENDED. [employer] Flu A/B & RSV Assay is a real-time polymerase chain reaction (PCR) based qualitative in vitro diagnostic test for the direct detection and differentiation of influenza A virus, influenza B virus, and respiratory syncytial virus (RSV) nucleic acid in nasopharyngeal swab (SUPERINTENDENT NONSELLING) specimens from patients with signs and symptoms of respiratory infection in conjunction with clinical and laboratory findings. The test is intended for use as an aid in the differential diagnosis of influenza A virus, influenza B virus, and RSV in humans and is not intended to detect influenza C. Performed By: #### C OVD19, FLURSV #### [place] [address] LABORATORYOrdered By: Rajeev Stanton on 04-20-2022 FLUAV RNA AMY+probe Ql (Upper resp) Negative (04/20/22 11:47 AM) Invalid Interpretation Code Negative AO Auto Urine SS FLUBV RNA AMY+probe Ql (Upper resp) Negative (04/20/22 11:47 AM) Invalid Interpretation Code Negative AO Auto Urine SS RSV RNA AMY+probe Ql (Upper resp) Negative (04/20/22 11:47 AM) Invalid Interpretation Code Negative AO Auto Urine SS SARS-CoV-2 (COVID-19) RNA AMY+probe Ql (Resp) Negative results do not preclude SARS-CoV-2 infection and should not be used as the sole basis for patient management decisions. Negative results must be combined with clinical observations, patient history, and epidemiological information.There is a risk of false negative values resulting from improperly collected, transported, or handled specimens.There is a risk of false negative values due to the presence of sequence variants in the pathogen targets of the assay, procedural errors, amplification inhibitors in specimens, or inadequate numbers of organisms for amplification.JASON SARS-CoV-2 Assay is a Real-Time reverse-transcriptase polymerase chain reaction (RT-PCR) based qualitative in vitro diagnostic test intended for the qualitative detection of nucleic acid from the SARS-CoV-2 in nasopharyngeal swab specimens collected from individuals suspected of COVID-19 by their healthcare provider. Testing is limited to laboratories certified under the Clinical Laboratory Improvement Amendments of 1988 (CLIA), 42 U.S.C. 263a, to perform moderate and high complexity tests. Invalid Interpretation Code AO Auto Urine SS XR CHEST 1 VIEWon 04-20-2022 XR CHEST 1 VIEW ORIGINAL EXAMINATION: ONE XRAY VIEW OF THE [...] 12:15:32 PM Ordering Provider: MARY ALICE MOYER [facility] ([place]) [facility] [place] Telephone ([facility]AG[facility]M) SYLVIA MANCUSO ([id number]) 1970 F [place] Date Time Provider Department 01/28/22 ABRAM AGUILERA NEAGCLM During your visit today, we recorded the following information about you: Charla Carrasquillo 01/28/2022 10:12 AM Signed Changed appointment from Friday 02/02 to 01/29 Charla Moreau Pss 01/28/2022 11:31 AM Signed At this time Sylvia's appointment is not approved and has been canceled. I left her a message to call our office when she receives information from her [employer]. Charla Moreau Pss Allergies As of Date: 01/28/2022 Noted Allergy Reaction CARVEDILOL 08/15/2013 14 - Other: See Comments Comments: Nausea, headache. Intolerant to Generic only, can tolerate Coreg CR environmental [Other] 05/01/2011 14 - Other: See Comments Comments: Head cold, cough NAPROXEN 08/14/2010 4 - Hives VANCOMYCIN 07/10/2010 14 - Other: See Comments Comments: developed itching and redness , infusion was slowed down and tolerated Date Reviewed: 10/02/2021 Reviewed by: Mckenna Baeza MD - Fully Assessed Reason for Visit: Appointment [186] Prescriptions as of 01/28/2022 - linaclotide (LINZESS) 145 mcg capsule Take 1 capsule by mouth DAILY (6 AM). - albuterol HFA (PROVENTIL HFA, VENTOLIN HFA) 90 mcg/actuation inhaler Inhale 2 Puffs as instructed every 4 hours as needed for wheezing/shortness of breath. - diclofenac, EC, (VOLTAREN) 75 mg EC tablet Take 1 tablet by mouth twice daily. For pain/inflammation. Take with food. - gabapentin (NEURONTIN) 300 mg capsule Take 1 capsule by mouth daily at bedtime for 181 days. - fluticasone-salmetero l HFA (ADVAIR HFA) 115-21 mcg/actuation inhaler Inhale 2 Puffs as instructed twice daily. - lisinopril 2.5 mg tablet Take 1 tablet by mouth once daily. - atenolol (TENORMIN) 25 mg tablet Take 1 tablet by mouth once daily. - venlafaxine ER (EFFEXOR XR) 150 mg 24 hr capsule Take 1 capsule by mouth once daily. - omeprazole (PRILOSEC) 40 mg capsule Take 1 capsule by mouth twice daily. - omeprazole (PRILOSEC) 40 mg capsule Take 1 capsule by mouth once daily - albuterol (PROVENTIL) 2.5 mg /3 mL (0.083 %) nebulizer solution Use 3 mL via nebulizer every 4 hours as needed for wheezing/shortness of breath. Use over 5-15minutes. - linaCLOtide (LINZESS) 290 mcg capsule Take 1 capsule by mouth DAILY (6 AM). - dicyclomine (BENTYL) 10 mg capsule Take 1 capsule by mouth three times daily as needed. - MULTIVITAMIN ORAL Take by mouth. - lactulose (DUPHALAC, CONSTULOSE) 20 gram/30 mL solution Take 30 mL by mouth once daily. - hydrOXYzine HCl (ATARAX) 25 mg tablet Take 1 tablet by mouth every 6 hours as needed for Anxiety. 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] 12/25/2008 Family History of Colon Cancer [Z80.0] 01/28/2009 Pain in joint, forearm [M25.539] 04/21/2010 07/17/2010 CHF (NYHA class II, ACC/AHA stage C) (HCC) [I50*05/06/2010 Left bundle branch block [I44.7] 05/06/2010 Automatic implantable cardiac defibrillator in *06/12/2010 discharge planning [Z71.89] 07/10/2010 07/17/2010 Pre-op testing [Z01.818] 07/10/2010 07/17/2010 Leukocytosis [D72.829] 07/12/2010 07/17/2010 SUMMARY [V999.95] 07/12/2010 07/17/2010 Atelectasis/fluid overload [J98.11] 07/12/2010 07/17/2010 Biventricular cardiac pacemaker in situ [Z95.0] 07/24/2010 Pain in joint, pelvic region and thigh [M25.559]06/22/2011 Thoracic or lumbosacral neuritis or radiculitis* 2 Cervicalgia [M54.2] 10/02/2011 Lumbago [M54.50] 10/02/2011 Brachial neuritis or radiculitis [M54.12] 12/03/2011 Foraminal stenosis of cervical region [M48.02] 12/03/2011 Cervical spondylosis without myelopathy [M47.81*12/03/2011 Cervical spondylosis [M47.812] 01/13/2013 Right cervical radiculopathy [M54.12] 01/13/2013 H/O cardiomyopathy [Z86.79] 01/13/2013 Stress incontinence in female [N39.3] 12/31/2014 Unsteady gait [R26.81] 01/29/2015 Abnormality of gait [R26.9] 02/21/2015 Fall due to stumbling [W01.0XXA] 02/21/2015 Biventricular ICD (implantable cardioverter-def*09/13 Acute pain of left shoulder [M25.512] 10/06/2017 Pacemaker [Z95.0] Obesity, Class I, BMI 30-34.9 [E66.9] 10/29/2020 GERD without esophagitis [K21.9] 10/29/2020 Menorrhagia with irregular cycle [N92.1] 10/29/2020 Chronic RUQ pain [R10.11, G89.29] 10/29/2020 Cough variant asthma [J45.991] 10/02/2021 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, U09.9] 10/02/2021 Encounter Status:Closed by CHARLA HERNANDEZ on 01/28/22 [facility] ICD CLINIC CHECKon 2 AV Delay Adaptive Paced Minimum (ms) 130 ms [facility] AV Delay Adaptive Sensed Minimum (ms) 100 ms [facility] Vasile LV Pacing Amplitude (volts) 3 V [facility] Vasile LV Pacing Pulse Width (ms) 0.7 ms [facility] vasile LV Sensing Amplitude (mvolts) 1 mV [facility] Vasile RA Pacing Amplitude (volts) 2 V [facility] Vasile RA Pacing Polarity BI [facility] Vasile RA Pacing Pulse Width (ms) 0.4 ms [facility] Vasile RA Sensing Amplitude (mvolts) 0.25 mV [facility] Vasile RA Sensing Polarity BI [facility] Vasile RV Pacing Amplitude (volts) 2 V [facility] Vasile RV Pacing Polarity BI [facility] Vasile RV Pacing Pulse Width (ms) 0.4 ms [facility] Vasile RV Sensing Amplitude (mvolts) 0.3 mV [facility] Vasile RV Sensing Polarity BI [facility] Detection Configuration (Vent) 2 - Zone [facility] FastVT_Detection Interval 316 ms [facility] FastVT_Therapy Configuration 1 ATP(s) + 6 Shock(s) [facility] ICD FastVT DetectionStatus ENABLED [facility] ICD-AMS EPISODES 170 {beats}/min [facility] ICD-ATP Episodes (Vent) 0 C [facility] ICD-ATRIALFIBRILLATION 0 Cl [facility] ICD-Device Mfg BSX [facility] ICD-LEADIMPEDANCEATRIAL 745 ohm C [facility] ICD-Percent Pacing (Atrial) 5 % [facility] ICD-Percent Pacing (Vent) 100 % [facility] ICD-Rhythm Normal Sinus Rhythm [facility] ICD-Shocks Aborted (Vent) 0 [facility] [id number] 0 [facility] ICD-SHOCKSABORTED 0 [facility] ICD-SHOCKSDELIVEREDVENT RICULAR 0 [facility] ICD-Ventricular Fibrillation 0 [facility] ICD-VVDELAY_MS 0 ms [facility] Implant Date 09/10/2020 [facility] Lead Impedance (LV) 717 ohm [facility] Lead Impedance (RV) 571 ohm [facility] Lead Impedance High Voltage 75 ohm [facility] Lead1 Mfg MDT [facility] Lead2 Mfg MDT [facility] Lead3 Mfg GDT [facility] Lead4 Mfg GDT [facility] Location RV [facility] Location RA [facility] Lower Rate (bpm) 60 {beats}/min [facility] LV PACING % 100 % [facility] Max Sensor Rate (bpm) 130 {beats}/min [facility] MDT_PROG_TACHY_ZONE_DET ECTIONS_STATUS ENABLED [facility] Model 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 NO [facility] Pacing Mode DDD [facility] Serial Number [id number] [facility] Serial Number [id number] [facility] Serial Number [id number] [facility] Serial Number [id number] [facility] Serial Number [id number] [facility] Test Charge Time 10 s [facility] Therapy Status (Vent) Enabled [facility] Thresh LV Capture Amplitude (volts) 1.3 V [facility] Thresh LV Capture Duration (ms) 0.7 ms [facility] Thresh RA Capture Amplitude (volts) 0.6 V [facility] Thresh RA Capture Duration (ms) 0.4 ms [facility] Thresh RA Sensing Amplitude (mvolts) 4.9 mV [facility] Thresh RV Capture Amplitude (VOLTS) 0.8 V [facility] Thresh RV Capture Duration (MS) 0.4 ms [facility] Thresh RV Sensing Amplitude (MVOLTS) 10.8 mV [facility] Tracking Rate (bpm) 135 {beats}/min [facility] VF Zone Detection Interval 316 ms [facility] VF Zone Therapy Configuration 1 ATP(s) + 6 Shock(s) [facility] No Panel Informationon 09-15 BLANK _ [facility] ICD-Fast Ventricular Tachycardia 0 [facility] Implant Date 07/11/2010 [facility] Implant Date 06/09/2010 [facility] Location LV [facility] Model 5071 Screw-In [facility] Laboratory - Microbiology an d Antimicrobial susceptibilityon 09-14-2021 SARS-CoV-2 (COVID-19) RNA AMY+probe Ql (Unsp spec) Not detected [facility] Work Phone: No Panel Informationon 09-14 Influenza Types A,B Rapid (Clinic) Not detected [facility] Work Phone: ICD REMOTE CHECKon 2 AV Delay Adaptive Paced Minimum (ms) 130 ms [facility] AV Delay Adaptive Sensed Minimum (ms) 100 ms [facility] Vasile LV Pacing Amplitude (volts) 3 V [facility] Vasile LV Pacing Pulse Width (ms) 0.7 ms [facility] vasile LV Sensing Amplitude (mvolts) 1 mV [facility] Vasile RA Pacing Amplitude (volts) 2 V [facility] Vasile RA Pacing Polarity BI [facility] Vasile RA Pacing Pulse Width (ms) 0.4 ms [facility] Vasile RA Sensing Amplitude (mvolts) 0.25 mV [facility] Vasile RA Sensing Polarity BI [facility] Vasile RV Pacing Amplitude (volts) 2 V [facility] Vasile RV Pacing Polarity BI [facility] Vasile RV Pacing Pulse Width (ms) 0.4 ms [facility] Vasile RV Sensing Amplitude (mvolts) 0.3 mV [facility] Vasile RV Sensing Polarity BI [facility] Detection Configuration (Vent) 2 - Zone [facility] FastVT_Detection Interval 316 ms [facility] FastVT_Therapy Configuration 1 ATP(s) + 6 Shock(s) [facility] ICD FastVT DetectionStatus ENABLED [facility] ICD-AMS EPISODES 170 {beats}/min [facility] ICD-ATP Episodes (Vent) 0 C [facility] ICD-ATRIALFIBRILLATION 0 Cl [facility] ICD-Device Mfg BSX [facility] ICD-LEADIMPEDANCEATRIAL 766 ohm C [facility] ICD-Percent Pacing (Atrial) 5 % [facility] ICD-Percent Pacing (Vent) 100 % [facility] ICD-Shocks Aborted (Vent) 0 [facility] [id number] 0 [facility] ICD-SHOCKSABORTED 0 [facility] ICD-SHOCKSDELIVEREDVENT RICULAR 0 [facility] ICD-Ventricular Fibrillation 0 [facility] ICD-VVDELAY_MS 0 ms [facility] Implant Date 09/10/2020 [facility] Lead Impedance (LV) 709 ohm [facility] Lead Impedance (RV) 582 ohm [facility] Lead Impedance High Voltage 70 ohm [facility] Lead1 Mfg MDT [facility] Lead2 Mfg MDT [facility] Lead3 Mfg GDT [facility] Lead4 Mfg GDT [facility] Location RV [facility] Location RA [facility] Lower Rate (bpm) 60 {beats}/min [facility] LV PACING % 100 % [facility] Max Sensor Rate (bpm) 130 {beats}/min [facility] MDT_PROG_TACHY_ZONE_DET ECTIONS_STATUS ENABLED [facility] Model G151 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-D [facility] Model 0180 Endotak Relianc e SG [facility] Model 4135 Dextrus [facility] Pacing Mode DDD [facility] Serial Number [id number] [facility] Serial Number [id number] [facility] Serial Number [id number] [facility] Serial Number [id number] [facility] Serial Number [id number] [facility] Test Charge Time 10 s [facility] Therapy Status (Vent) Enabled [facility] Thresh LV Capture Amplitude (volts) 1.6 V [facility] Thresh LV Capture Duration (ms) 0.7 ms [facility] Thresh RA Capture Amplitude (volts) 0.5 V [facility] Thresh RA Capture Duration (ms) 0.4 ms [facility] Thresh RV Capture Amplitude (VOLTS) 0.9 V [facility] Thresh RV Capture Duration (MS) 0.4 ms [facility] Tracking Rate (bpm) 135 {beats}/min [facility] VF Zone Detection Interval 316 ms [facility] VF Zone Therapy Configuration 1 ATP(s) + 6 Shock(s) [facility] No Panel Informationon 09-09 BLANK _ [facility] ICD-ATRIALTACHYCARDIA 0 [facility] ICD-Fast Ventricular Tachycardia 0 [facility] Implant Date 07/11/2010 [facility] Implant Date 06/09/2010 [facility] Location LV [facility] Model 5071 Screw-In [facility] XR Hand - left PA and Latera l and Obliqueon 08-13-2021 IMPRESSION: No acute osseous abnormality. Rn Transitional: JUAN Transcribe Date/Time: Aug 13 2021 2:33P Dictated by : GEOFF BOSE DO This examination was interpreted and the report reviewed and electronically signed by: GEOFF BOSE DO on Aug 13 2021 2:37PM [facility] DIVISION OF RADIOLOGY * * *Final Report* * * DATE OF EXAM: Aug 13 2021 2:22PM WOX 5345 - XR HAND 3V PA/LAT/OBL LT / PROCEDURE REASON: Hand injuries, left, initial encounter * * * * Physician Interpretation * * * * EXAMINATION: XR HAND 3V PA/LAT/OBL LT PATIENT/TECHNOLOGIST PROVIDED HISTORY: pt fell wednesday injuring left hand. Majority of pain in index and middle finger but pain and swelling in ring finger also. Pt unable to remove ring from ring finger due to pain and swelling. CLINICAL INFORMATION: 51 years old Female with Hand injuries, left, initial encounter TECHNIQUE: XR HAND 3V PA/LAT/OBL LT Laterality: LEFT Number of different views (projections): 3 COMPARISON: None RESULT: No fracture or dislocation. Mild degenerative change first CMC joint. Joint spaces are otherwise maintained. Reactive cyst in the scaphoid. No erosions or other significant abnormality. DIVISION OF RADIOLOGY Provider, [facility] - 08/13/2021 * * *Final Report* * * DATE OF EXAM: Aug 13 2021 2:22PM WOX 5345 - XR HAND 3V PA/LAT/OBL LT / PROCEDURE REASON: Hand injuries, left, initial encounter * * * * Physician Interpretation * * * * EXAMINATION: XR HAND 3V PA/LAT/OBL LT PATIENT/TECHNOLOGIST PROVIDED HISTORY: pt fell wednesday injuring left hand. Majority of pain in index and middle finger but pain and swelling in ring finger also. Pt unable to remove ring from ring finger due to pain and swelling. CLINICAL INFORMATION: 51 years old Female with Hand injuries, left, initial encounter TECHNIQUE: XR HAND 3V PA/LAT/OBL LT Laterality: LEFT Number of different views (projections): 3 COMPARISON: None RESULT: No fracture or dislocation. Mild degenerative change first CMC joint. Joint spaces are otherwise maintained. Reactive cyst in the scaphoid. No erosions or other significant abnormality. IMPRESSION IMPRESSION: No acute osseous abnormality. Rn Transitional: JUAN Transcribe Date/Time: Aug 13 2021 2:33P Dictated by : GEOFF BOSE DO This examination was interpreted and the report reviewed and electronically signed by: GEOFF BOSE DO on Aug 13 2021 2:37PM EST [facility] Radiology Study observation (narrative) [facility] XR Hand - left PA and Latera l and ObliqueOrdered By: Ccf Provider on 08-13-2021 [facility] XR Pelvis and Hip - right AP and Lateral frogon 07-22-2021 Radiology Study observation (narrative) [facility] IMPRESSION:No evidence of significant osseous abnormality Rn Transitional: [facility] Transcribe Date/Time: Jul 22 2021 4:32P Dictated by : JOSE MIGUEL SLOAN MD This examination was interpreted and the report reviewed and electronically signed by: JOSE MIGUEL SLOAN MD on Jul 22 2021 4:32PM [facility] DIVISION OF RADIOLOGY * * *Final Report* * * DATE OF EXAM: Jul 22 2021 4:29PM WOX 5352 - XR HIP 3V PELV+ AP/LAT RT / PROCEDURE REASON: Fall, initial encounter * * * * Physician Interpretation * * * * Exam:Single view of the pelvis and right hip series. Reason for exam:Right hip pain. Findings:The sacroiliac joints are normal. The pubic symphysis is normal. The femoral heads are well situated in the acetabula. No fracture is identified. Bone density is normal. DIVISION OF RADIOLOGY Provider, [facility] - 07/22/2021 * * *Final Report* * * DATE OF EXAM: Jul 22 2021 4:29PM WOX 5352 - XR HIP 3V PELV+ AP/LAT RT / PROCEDURE REASON: Fall, initial encounter * * * * Physician Interpretation * * * * Exam:Single view of the pelvis and right hip series. Reason for exam:Right hip pain. Findings:The sacroiliac joints are normal. The pubic symphysis is normal. The femoral heads are well situated in the acetabula. No fracture is identified. Bone density is normal. IMPRESSION IMPRESSION:No evidence of significant osseous abnormality Rn Transitional: [facility] Transcribe Date/Time: Jul 22 2021 4:32P Dictated by : JOSE MIGUEL SLOAN MD This examination was interpreted and the report reviewed and electronically signed by: JOSE MIGUEL SLOAN MD on Jul 22 2021 4:32PM EST [facility] XR Pelvis and Hip - right AP and Lateral frogOrdered By: Ccf Provider on 07-22-2021 [facility] Absolute lymphocyte counton 07-07-2021 Lymphocytes Auto (Unsp spec) [#/Vol] 2.26 10*3/uL 0.83-4.51 [facility] Work Phone: Basophil percentageon 2021 Basophils/100 WBC (Bld) 0.7 % 0-1 [facility] Work Phone: Bilirubin [Mass/Vol] 0.40 mg/dL 0.20-1.00 [facility] Work Phone: Comment on above: For patients on eltr ombopag therapy, use of Dimension [place] TBIL is not recommended. Chloride [Moles/Vol] 103 mmol/L 98-107 [facility] Work Phone: Eosinophils/100 WBC (Bld) 3.1 % 0-5 [facility] Work Phone: Glucose [Mass/Vol] 86 mg/dL 74-[address] [facility] Work Phone: Neutrophils (Bld) [#/Vol] 3.2 10*3/uL 2.0-7.7 [facility] Work Phone: [phone] Neutrophils/100 WBC (Bld) 52.8 % 47-70 [facility] Work Phone: [phone] Potassium [Moles/Vol] 3.5 mmol/L 3.5-5.1 [facility] Work Phone: [phone] Protein [Mass/Vol] 6.6 g/dL 6.4-8.[address] [facility] Work Phone: [phone] Sodium [Moles/Vol] 140 mmol/L 136-[address] [facility] Work Phone: [phone] WBC (Bld) [#/Vol] 6.1 10*3/uL 4.4-11.[address] [facility] Work Phone: [phone] Blood erythrocytes count (nu mber/volume)on 07-07-2021 RBC (Bld) [#/Vol] 4.29 10*6/uL 4.2-5.4 [facility] Work [facility]: [phone] Blood hemoglobin measurement (mass/volume)on 07-07-2021 Hemoglobin (Bld) [Mass/Vol] 12.6 g/dL 12.0-15.0 [facility] Work Phone: [phone] Blood lymphocytes/100 leukoc yteson 07-07-2021 Lymphocytes/100 WBC (Bld) 37.0 % 19-41 [facility] Work Phone: [phone] Blood monocytes/100 leukocyt eson 07-07-2021 Monocytes/100 WBC (Bld) 6.2 % 0-10 [facility] Work Phone: [phone] Blood platelet mean volumeon 07-07-2021 Platelet mean volume (Bld) [Entitic vol] 10.0 fL 6.2-12.0 [facility] Work Phone: [phone] Determination of erythrocyte mean corpuscular volume (MCV)on 07-07-2021 MCV (RBC) [Entitic vol] 86.2 fL 81-99 [facility] Work Phone: Hematocrit Auto (Bld) [Volum e fraction]on 07-07-2021 Hematocrit (Bld) [Volume fraction] 37.0 % 37-47 [facility] Work Phone: [phone] Laboratory - Chemistry and C hemistry - challengeon 07-07-2021 ALP [Catalytic activity/Vol] 98 U/L 45-117 [facility] Work Phone: [phone] ALT [Catalytic activity/Vol] 43 U/L 13-56 [facility] Work Phone: [phone] CO2 [Moles/Vol] 29.0 mmol/L 21.0-32.0 [facility] Work Phone: [phone] Globulin (S) [Mass/Vol] 3.2 g/dL 2.2-4.2 [facility] Work Phone: [phone] Urea nitrogen/Creatinine [Mass ratio] 13.4 mg/mg 10-20 [facility] Work Phone: [phone] Laboratory - Hematology and Cell countson 07-07-2021 Erythrocyte distribution width (RBC) [Entitic vol] 41.5 fL 35.1-43.9 [facility] Work Phone: [phone] Erythrocyte distribution width (RBC) [Ratio] 13.2 % 11.6-14.6 [facility] Work Phone: [phone] Immature granulocytes/100 WBC (Bld) 0.200 % 0.0-0.9 [facility] Work Phone: [phone] Comment on above: IG% - Immature Granu locytes (promyelocytes, myelocytes and metamyelocytes) > 1% indicates that a LEFT SHIFT is Present. MCH (RBC) [Entitic mass] 29.4 pg 27.0-32.0 [facility] Work Phone: [phone] Nucleated RBC/100 WBC (Bld) [Ratio] 0 % 0-5 [facility] Work Phone: [phone] MCHC Auto (RBC) [Mass/Vol]on 07-07-2021 MCHC (RBC) [Mass/Vol] 34.1 g/dL 32-36 [facility] Work [facility]: No Panel Informationon 07-07 Estimated Creatinine Clearance Calc 70.88 ml/min [facility] Work Phone: Estimated GFR (MDRD) Amer 95 mL/min >60 [facility] Work Phone: Comment on above: GFR Calc Estimated GFR (MDRD) Non-Af Amer 78 mL/min >60 [facility] Work Phone: Comment on above: Non- GFR Calc Troponin I High Sensitivity 4 pg/mL 3.0-54.0 [facility] Work Phone: Comment on above: Please Note: [place] t Units and Gender Specific Reference Ranges. For more information see Policy Stat Procedure [place] High Sensitivity Troponin (TNIH) and attachments. Platelets bldon 07-07-2021 Platelets (Bld) [#/Vol] 224 10*3/uL 150-450 [facility] Work Phone: Serum or plasma albumin albertina urement (mass/volume)on 07-07-2021 Albumin [Mass/Vol] 3.4 g/dL 3.2-5.[address] [facility] Work Phone: Serum or plasma albumin/glob ulin mass ratioon 07-07-2021 Albumin/Globulin [Mass ratio] 1.1 {ratio} 0.9-2.4 [facility] Work Phone: Serum or plasma calcium albertina urement (mass/volume)on 07-07-2021 Calcium [Mass/Vol] 8.1 mg/dL 8.5-10.[address] [facility] Work Phone: [phone] Serum or plasma creatinine m easurement (mass/volume)on 07-07-2021 Creatinine [Mass/Vol] 0.82 mg/dL 0.55-1.02 [facility] Work Phone: Comment on above: The validity of the calculated GFR & GFRAA in patients over 70 years has not been determined. Clinical correlation is essential. Serum or plasma urea nitroge n measurement (mass/volume)on 07-07-2021 Urea nitrogen [Mass/Vol] 11 mg/dL 7-18 [facility] Work Phone: Thin prep Papanicolaou smear with manual screeningon 07-07-2021 Thin prep Papanicolaou smear with manual screening 31 U/L 15-37 [facility] Work Phone: Thin prep Papanicolaou smear with manual screening 8 5-15 [facility] Work Phone: XR Chest PA and Lateralon IMPRESSION: No acute radiographic abnormality. No significant interval change Rn Transitional: [facility] Transcribe Date/Time: Jul 01 2021 9:42A Dictated by : YANIRA MCBRIDE MD This examination was interpreted and the report reviewed and electronically signed by: YANIRA MCBRIDE MD on Jul 01 2021 9:43AM [facility] DIVISION OF RADIOLOGY * * *Final Report* * * DATE OF EXAM: Jul 01 2021 9:41AM WOX 5291 - XR CHEST 2V FRONTAL/LAT / PROCEDURE REASON: multiple diagnoses * * * * Physician Interpretation * * * * EXAMINATION: CHEST RADIOGRAPH (2 VIEW FRONTAL & LATERAL) CLINICAL HISTORY: Suspected COVID-19 virus infection Cough MQ: XC2_6 EXAM DATE/TIME: 07/01/2021 9:41 AM COMPARISON: 03/29/2020 RESULT: Lines, tubes, and devices: No change in the positioning of the pacemaker leads. . Lungs and pleura: No consolidation. Stable 2 mm nodule lateral RIGHT lung base. No pleural effusion. No pneumothorax. Cardiomediastinal silhouette: Normal cardiomediastinal silhouette. Bones and soft tissues: Unremarkable. DIVISION OF RADIOLOGY Provider, [facility] - 07/01/2021 * * *Final Report* * * DATE OF EXAM: Jul 01 2021 9:41AM WOX 5291 - XR CHEST 2V FRONTAL/LAT / PROCEDURE REASON: multiple diagnoses * * * * Physician Interpretation * * * * EXAMINATION: CHEST RADIOGRAPH (2 VIEW FRONTAL & LATERAL) CLINICAL HISTORY: Suspected COVID-19 virus infection Cough MQ: XC2_6 EXAM DATE/TIME: 07/01/2021 9:41 AM COMPARISON: 03/29/2020 RESULT: Lines, tubes, and devices: No change in the positioning of the pacemaker leads. . Lungs and pleura: No consolidation. Stable 2 mm nodule lateral RIGHT lung base. No pleural effusion. No pneumothorax. Cardiomediastinal silhouette: Normal cardiomediastinal silhouette. Bones and soft tissues: Unremarkable. IMPRESSION IMPRESSION: No acute radiographic abnormality. No significant interval change Rn Transitional: JUAN Transcribe Date/Time: Jul 01 2021 9:42A Dictated by : YANIRA MCBRIDE MD This examination was interpreted and the report reviewed and electronically signed by: YANIRA MCBRIDE MD on Jul 01 2021 9:43AM EST [facility] Radiology Study observation (narrative) [facility] XR Chest PA and LateralOrder ed By: Ccf Provider on 07-01-2021 [facility] .Auto Diffon 05-20-2021 Basophil, Absolute 0.10 10 3/mcL Normal 0.00-0.19 [facility] ([place]) Comment on above: Performed By: #### T ROPHS, GFR, CBC, PBNP, BMP, ANEU, ADIFF #### [address] [address] Basophils/100 WBC (Bld) 0.9 % Normal 0.0-2.5 A [facility] ([place]) Comment on above: Performed By: #### T ROPHS, GFR, CBC, PBNP, BMP, ANEU, ADIFF #### [address] [address] Eosinophil, Absolute 0.20 10 3/mcL Normal 0.00-0.40 A [facility] ([place]) Comment on above: Performed By: #### T ROPHS, GFR, CBC, PBNP, BMP, ANEU, ADIFF #### [address] [address] Eosinophils/100 WBC (Bld) 1.9 % Normal 0.0-7.0 [facility] ([place]) Comment on above: Performed By: #### T ROPHS, GFR, CBC, PBNP, BMP, ANEU, ADIFF #### [address] [address] Lymphocyte, Absolute 2.40 10 3/mcL Normal 0.77-3.85 A [facility] ([place]) Comment on above: Performed By: #### T ROPHS, GFR, CBC, PBNP, BMP, ANEU, ADIFF #### [address] [address] Lymphocytes/100 WBC (Bld) 26.8 % Normal 10.0-50.0 [facility] ([place]) Comment on above: Performed By: #### T ROPHS, GFR, CBC, PBNP, BMP, ANEU, ADIFF #### [address] [address] Monocyte, Absolute 0.60 10 3/mcL Normal 0.15-1.00 [facility] ([place]) Comment on above: Performed By: #### T ROPHS, GFR, CBC, PBNP, BMP, ANEU, ADIFF #### [address] [address] Monocytes/100 WBC (Bld) 6.9 % Normal 1.7-13.0 [facility] ([place]) Comment on above: Performed By: #### T ROPHS, GFR, CBC, PBNP, BMP, ANEU, ADIFF #### [address] [address] Neutrophils/100 WBC (Bld) 63.5 % Normal 37.0-80.0 [facility] ([place]) Comment on above: Performed By: #### T ROPHS, GFR, CBC, PBNP, BMP, ANEU, ADIFF #### [address] [address] .GFRon 05-20-2021 GFR 74 ml/min/1.73sqm Normal [facility] ([place]) Comment on above: Result Comment: GFR Population mean for , Non- Americans Ages 20-29 = 116 mL/min/1.73 sq.m. Ages 30-39 = 107 mL/min/1.73 sq.m. Ages 40-49 = 99 mL/min/1.73 sq.m. Ages 50-59 = 93 mL/min/1.73 sq.m. Ages 60-69 = 85 mL/min/1.73 sq.m. Ages 70+ = 75 mL/min/1.73 sq.m. Chronic Kidney Disease: Less than 60 mL/min/1.73 square meters End Stage Renal Disease: Less than 15 mL/min/1.73 square meters Performed By: #### T JORY, GFR, CBC, PBNP, BMP, ANEU, ADIFF #### [address] [address] GFR Non- 61 ml/min/1.73sqm Normal [facility] ([place]) Comment on above: Result Comment: GFR Population mean for , Non- Americans Ages 20-29 = 116 mL/min/1.73 sq.m. Ages 30-39 = 107 mL/min/1.73 sq.m. Ages 40-49 = 99 mL/min/1.73 sq.m. Ages 50-59 = 93 mL/min/1.73 sq.m. Ages 60-69 = 85 mL/min/1.73 sq.m. Ages 70+ = 75 mL/min/1.73 sq.m. Chronic Kidney Disease: Less than 60 mL/min/1.73 square meters End Stage Renal Disease: Less than 15 mL/min/1.73 square meters Performed By: #### T JORY, GFR, CBC, PBNP, BMP, ANEU, ADIFF #### [address] [address] .NEUABSon 05-20-2021 Neutrophil, Absolute 5.60 10 3/mcL Normal 2.85-6.16 A [facility] ([place]) Comment on above: Performed By: #### T JORY, GFR, CBC, PBNP, BMP, ANEU, ADIFF #### [address] [address] BMPon 05-20-2021 BUN/Creatinine Ratio 11 ratio Normal 7-27 [facility] ([place]) Comment on above: Performed By: #### T JORY, GFR, CBC, PBNP, BMP, ANEU, ADIFF #### [address] [address] Calcium [Mass/Vol] 9.1 mg/dL Normal 8.4-10.2 [facility] ([place]) Comment on above: Performed By: #### T ROPHS, GFR, CBC, PBNP, BMP, ANEU, ADIFF #### [address] [address] Chloride [Moles/Vol] 105 mmol/L Normal 98-107 [facility] ([place]) Comment on above: Performed By: #### T ROPHS, GFR, CBC, PBNP, BMP, ANEU, ADIFF #### [address] [address] CO2 [Moles/Vol] 29 mmol/L Normal 22-29 [facility] ([place]) Comment on above: Performed By: #### T JORY, GFR, CBC, PBNP, BMP, ANEU, ADIFF #### [address] [address] Creatinine [Mass/Vol] 0.97 mg/dL Normal 0.55-1.02 [facility] ([place]) Comment on above: Performed By: #### T JORY, GFR, CBC, PBNP, BMP, ANEU, ADIFF #### [address] [address] Electrolyte Balance 9.0 mEq/L Normal [facility] ([place]) Comment on above: Performed By: #### T JORY, GFR, CBC, PBNP, BMP, ANEU, ADIFF #### [address] [address] Glucose [Mass/Vol] 111 mg/dL High 70-105 [facility] ([place]) Comment on above: Performed By: #### T ROPHS, GFR, CBC, PBNP, BMP, ANEU, ADIFF #### [address] [address] Potassium [Moles/Vol] 4.4 mmol/L Normal 3.5-5.1 [facility] ([place]) Comment on above: Performed By: #### T ROPHS, GFR, CBC, PBNP, BMP, ANEU, ADIFF #### [address] [address] Sodium [Moles/Vol] 143 mmol/L Normal 136-145 [facility] ([place]) Comment on above: Performed By: #### T ROPHS, GFR, CBC, PBNP, BMP, ANEU, ADIFF #### [place] [address] Urea nitrogen [Mass/Vol] 11 mg/dL Normal 7-18 [facility] ([place]) Comment on above: Performed By: #### T ROPHS, GFR, CBC, PBNP, BMP, ANEU, ADIFF #### [place] [address] CBCon 05-20-2021 Erythrocyte distribution width (RBC) [Ratio] 13.6 % Normal 11.5-14.5 [facility] ([place]) Comment on above: Performed By: #### T ROPHS, GFR, CBC, PBNP, BMP, ANEU, ADIFF #### [place] [address] Hematocrit (Bld) [Volume fraction] 38.3 % Normal 37.0-47.0 [facility] ([place]) Comment on above: Performed By: #### T ROPHS, GFR, CBC, PBNP, BMP, ANEU, ADIFF #### [place] [address] Hgb 13.1 G/dL Normal 12.0-16.0 [facility] ([place]) Comment on above: Performed By: #### T ROPHS, GFR, CBC, PBNP, BMP, ANEU, ADIFF #### [place] [address] MCH (RBC) [Entitic mass] 29.3 pg Normal 27.0-31.2 [facility] ([place]) Comment on above: Performed By: #### T ROPHS, GFR, CBC, PBNP, BMP, ANEU, ADIFF #### [place] [address] MCHC 34.3 G/dL Normal 33.0-37.0 [facility] ([place]) Comment on above: Performed By: #### T ROPHS, GFR, CBC, PBNP, BMP, ANEU, ADIFF #### [address] [address] MCV (RBC) [Entitic vol] 85.5 fL Normal 80.0-94.0 A [facility] ([place]) Comment on above: Performed By: #### T ROPHS, GFR, CBC, PBNP, BMP, ANEU, ADIFF #### [address] [address] Platelet 260 10 3/mcL Normal 130-400 [facility] ([place]) Comment on above: Performed By: #### T ROPHS, GFR, CBC, PBNP, BMP, ANEU, ADIFF #### [address] [address] Platelet mean volume (Bld) [Entitic vol] 8.3 fL Normal 7.4-10.4 [facility] ([place]) Comment on above: Performed By: #### T ROPHS, GFR, CBC, PBNP, BMP, ANEU, ADIFF #### [address] [address] RBC 4.48 10 6/mcL Normal 4.20-5.40 [facility] ([place]) Comment on above: Performed By: #### T ROPHS, GFR, CBC, PBNP, BMP, ANEU, ADIFF #### [address] [address] WBC 8.90 10 3/mcL Normal 4.60-10.80 [facility] ([place]) Comment on above: Performed By: #### T ROPHS, GFR, CBC, PBNP, BMP, ANEU, ADIFF #### [address] [address] [id number] 05-20-2021 Date of Onset [id number] Invalid Interpretation Code [facility] ([place]) Comment on above: Performed By: #### C OVD19 #### [address] [address] Employed in Healthcare No Normal [facility] ([place]) Comment on above: Performed By: #### Desire OVD19 #### [address] [address] First Test No [facility] ([place]) Comment on above: Performed By: #### C OVD19 #### [address] [address] Hospitalized Unknown Normal [facility] ([place]) Comment on above: Performed By: #### C OVD19 #### [address] [address] ICU No Normal [facility] ([place]) Comment on above: Performed By: #### C OVD19 #### [address] [address] Not [facility] ([place]) Comment on above: Performed By: #### C OVD19 #### [place] [address] Resides in Congregate Care Setting No [facility] ([place]) Comment on above: Performed By: #### C OVD19 #### [place] [address] SARS-CoV-2 (COVID-19) RNA AMY+probe Ql (Unsp spec) Negative Normal Negative [facility] ([place]) Comment on above: Performed By: #### C OVD19 #### [place] [address] SARS-CoV-2 (COVID-19) RNA AMY+probe Ql (Unsp spec) Normal [facility] ([place]) Comment on above: Result Comment: Nega tive results do not preclude SARS-CoV-2 infection and should not be used as the sole basis for patient management decisions. Negative results must be combined with clinical observations, patient history, and epidemiological information. There is a risk of false negative values resulting from improperly collected, transported, or handled specimens. There is a risk of false negative values due to the presence of sequence variants in the pathogen targets of the assay, procedural errors, amplification inhibitors in specimens, or inadequate numbers of organisms for amplification. JASON SARS-CoV-2 Assay is a Real-Time reverse-transcriptase polymerase chain reaction (RT-PCR) based qualitative in vitro diagnostic test intended for the qualitative detection of nucleic acid from the SARS-CoV-2 in nasopharyngeal swab specimens collected from individuals suspected of COVID-19 by their healthcare provider. Testing is limited to laboratories certified under the Clinical Laboratory Improvement Amendments of 1988 (CLIA), 42 U.S.C. ?263a, to perform moderate and high complexity tests. COVID-19 Int Performed By: #### C OVD19 #### [id number] [place], [place] [address] Symptomatic as Defined by CDC Yes Normal [facility] ([place]) Comment on above: Performed By: #### C OVD19 #### [id number] [place], [place] [address] LABORATORYOrdered By: Luna Mak on 05-20-2021 ADMITTED TO INTENSIVE CARE UNIT FOR CONDITION OF INTEREST:FIND:PT:^PATIE NT:ORD: No (05/20/21 9:51 AM) Invalid Interpretation Code AO Auto Urine SS EMPLOYED IN A HEALTHCARE SETTING:FIND:PT:^PATIEN T:ORD: No (05/20/21 9:51 AM) Invalid Interpretation Code AO Auto Urine SS FIRST TEST FOR CONDITION OF INTEREST:FIND:PT:^PATIE NT:ORD: No (05/20/21 9:51 AM) Invalid Interpretation Code AO Auto Urine SS HAS SYMPTOMS RELATED TO CONDITION OF INTEREST:FIND:PT:^PATIE NT:ORD: Yes (05/20/21 9:51 AM) Invalid Interpretation Code AO Auto Urine SS Illness or injury onset date and time [id number] Invalid Interpretation Code AO Auto Urine SS Patient was hospitalized because of this condition Unknown (05/20/21 9:51 AM) Invalid Interpretation Code AO Auto Urine SS status Not (05/20/21 9:51 AM) Invalid Interpretation Code AO Auto Urine SS RESIDES IN A CONGREGATE CARE SETTING:FIND:PT:^PATIEN T:ORD: No (05/20/21 9:51 AM) Invalid Interpretation Code AO Auto Urine SS SARS-CoV-2 (COVID-19) RNA AMY+probe Ql (Resp) Negative (05/20/21 9:51 AM) Invalid Interpretation Code Negative AO Auto Urine SS SARS-CoV-2 (COVID-19) RNA AMY+probe Ql (Unsp spec) Negative results do not preclude SARS-CoV-2 infection and should not be used as the sole basis for patient management decisions. Negative results must be combined with clinical observations, patient history, and epidemiological information.There is a risk of false negative values resulting from improperly collected, transported, or handled specimens.There is a risk of false negative values due to the presence of sequence variants in the pathogen targets of the assay, procedural errors, amplification inhibitors in specimens, or inadequate numbers of organisms for amplification.JASON SARS-CoV-2 Assay is a Real-Time reverse-transcriptase polymerase chain reaction (RT-PCR) based qualitative in vitro diagnostic test intended for the qualitative detection of nucleic acid from the SARS-CoV-2 in nasopharyngeal swab specimens collected from individuals suspected of COVID-19 by their healthcare provider. Testing is limited to laboratories certified under the Clinical Laboratory Improvement Amendments of 1988 (CLIA), 42 U.S.C. 263a, to perform moderate and high complexity tests. Invalid Interpretation Code AO Auto Urine SS LABORATORYOrdered By: Chari Patricia on 05-20-2021 Basophil, Absolute 0.10 103/mcL Invalid Interpretation Code 0.00 - 0.19 10^3/mcL AO Auto Heme SS Basophils/100 WBC (Bld) 0.9 % Invalid Interpretation Code 0.0 - 2.5 % AO Auto Heme SS Eosinophil, Absolute 0.20 103/mcL Invalid Interpretation Code 0.00 - 0.40 10^3/mcL AO Auto Heme SS Eosinophils/100 WBC (Bld) 1.9 % Invalid Interpretation Code 0.0 - 7.0 % AO Auto Heme SS Erythrocyte distribution width (RBC) [Ratio] 13.6 % Invalid Interpretation Code 11.5 - 14.5 % AO Auto Heme SS Hematocrit (Bld) [Volume fraction] 38.3 % Invalid Interpretation Code 37.0 - 47.0 % AO Auto Heme SS Hemoglobin (Bld) [Mass/Vol] 13.1 G/dL Invalid Interpretation Code 12.0 - 16.0 G/dL AO Auto Heme SS Lymphocyte, Absolute 2.40 103/mcL Invalid Interpretation Code 0.77 - 3.85 10^3/mcL AO Auto Heme SS Lymphocytes/100 WBC (Bld) 26.8 % Invalid Interpretation Code 10.0 - 50.0 % AO Auto Heme SS MCH (RBC) [Entitic mass] 29.3 pg Invalid Interpretation Code 27.0 - 31.2 pg AO Auto Heme SS MCHC (RBC) [Mass/Vol] 34.3 G/dL Invalid Interpretation Code 33.0 - 37.0 G/dL AO Auto Heme SS MCV (RBC) [Entitic vol] 85.5 fL Invalid Interpretation Code 80.0 - 94.0 fL AO Auto Heme SS Monocyte, Absolute 0.60 103/mcL Invalid Interpretation Code 0.15 - 1.00 10^3/mcL AO Auto Heme SS Monocytes/100 WBC (Bld) 6.9 % Invalid Interpretation Code 1.7 - 13.0 % AO Auto Heme SS Neutrophil, Absolute 5.60 103/mcL Invalid Interpretation Code 2.85 - 6.16 10^3/mcL AO Auto Heme SS Neutrophils/100 WBC (Bld) 63.5 % Invalid Interpretation Code 37.0 - 80.0 % AO Auto Heme SS Platelet mean volume (Bld) [Entitic vol] 8.3 fL Invalid Interpretation Code 7.4 - 10.4 fL AO Auto Heme SS Platelets (Bld) [#/Vol] 260 103/mcL Invalid Interpretation Code 130 - 400 10^3/mcL AO Auto Heme SS RBC (Bld) [#/Vol] 4.48 106/mcL Invalid Interpretation Code 4.20 - 5.40 10^6/mcL AO Auto Heme SS WBC (Bld) [#/Vol] 8.90 103/mcL Invalid Interpretation Code 4.60 - 10.80 10^3/mcL AO Auto Heme SS LABORATORYOrdered By: Rajeev Stanton on 05-20-2021 Calcium [Mass/Vol] 9.1 mg/dL Invalid Interpretation Code 8.4 - 10.2 mg/dL AO ADM SS Chloride [Moles/Vol] 105 mmol/L Invalid Interpretation Code 98 - 107 mmol/L AO ADM SS CO2 [Moles/Vol] 29 mmol/L Invalid Interpretation Code 22 - 29 mmol/L AO ADM SS Creatinine [Mass/Vol] 0.97 mg/dL Invalid Interpretation Code 0.55 - 1.02 mg/dL AO ADM SS Electrolyte Balance 9.0 mEq/L Invalid Interpretation Code AO ADM SS Glucose [Mass/Vol] 111 mg/dL Invalid Interpretation Code 70 - 105 mg/dL AO ADM SS Natriuretic peptide.B prohormone N-Terminal [Mass/Vol] 65 pg/mL Invalid Interpretation Code 0 - 125 pg/mL AO ADM SS Potassium [Moles/Vol] 4.4 mmol/L Invalid Interpretation Code 3.5 - 5.1 mmol/L AO ADM SS Sodium [Moles/Vol] 143 mmol/L Invalid Interpretation Code 136 - 145 mmol/L AO ADM SS Troponin I.cardiac DL <= 0.01 ng/mL [Mass/Vol] 5.0 ng/L Invalid Interpretation Code 0.0 - 51.4 ng/L AO ADM SS Urea nitrogen [Mass/Vol] 11 mg/dL Invalid Interpretation Code 7 - 18 mg/dL AO ADM SS Urea nitrogen/Creatinine [Mass ratio] 11 ratio Invalid Interpretation Code 7 - 27 ratio AO ADM SS LABORATORYOrdered By: SYSTEM SYSTEM on 05-20-2021 GFR 74 ml/min/1.73sqm Invalid Interpretation Code AO Chemistry S GFR Non- 61 ml/min/1.73sqm Invalid Interpretation Code AO Chemistry S PBNPon 05-20-2021 Natriuretic peptide B (Bld) [Mass/Vol] 65 pg/mL Normal 0-125 [facility] ([place]) Comment on above: Result Comment: NT-p roBNP results of less than 300 pg/mL effectively rules out acute congestive heart failure with 99% negative predictive value. Performed By: #### T ROPHS, GFR, CBC, PBNP, BMP, ANEU, ADIFF #### [address] [address] [facility] Troponin I High Sensitivity 5.0 ng/L Normal 0.0-51.4 [facility] ([place]) Comment on above: Performed By: #### T ROPHS, GFR, CBC, PBNP, BMP, ANEU, ADIFF #### [address] [address] XR CHEST 1 VIEWon 05-20-2021 XR CHEST 1 VIEW ORIGINAL EXAMINATION: ONE XRAY VIEW OF THE CHEST 05/20/2021 11:51 am COMPARISON: None. HISTORY: ORDERING SYSTEM PROVIDED HISTORY: Reason for Exam: cough FINDINGS: The cardiomediastinal silhouette is normal. There is a left-sided AICD. No focal consolidation, pleural effusion, vascular congestion, or pneumothorax. IMPRESSION: No acute radiographic findings. Interpreted by: Cyndi Rangel MD Preliminary Report By: Cyndi Rangel MD Electronically signed By Cyndi Rangel MD Dictated Date: 05/20/2021 11:59:04 AM Prelim Date: 05/20/2021 12:00:17 PM Sign Date: 05/20/2021 12:00:17 PM Ordering Provider: AQUILES HODAN [facility] ([place]) ELASTOGRAPHY WITH IMAGINGon 04-22-2021 ELASTOGRAPHY WITH IMAGING ULTRASOUND OF THE LIVER AND ELASTOGRAPHY: Clinical Statement: Fatty liver. FINDINGS: The liver is 17.8 cm in length. The liver parenchyma is diffusely echogenic with diminished through-transmission of sound and poor visualization of the deep structures and portal triads. No focal lesions are seen. No perihepatic ascites. ARFI median: 0.96 m/s IQR - 0.10 IQR/median ratio = 0.10 (must be 0.15 or less to ensure technical adequacy) Recommendation for Interpretation of Liver Stiffness Values Obtained with ARFI Techniques in Patients with Viral Hepatitis and NAFLD: Liver Stiffness Value: Recommendation: <=kPa (1.3 m/sec) High probability of being normal <9 kPa (1.7 m/sec) In absence of other known clinical signs, rules out cACLD. If known clinical signs, may need further test for confirmation. 9-13 kPa (1.7-2.1 m/sec) Suggestive of cACLD but need further test for confirmation > 13 kPa (2.1 m/sec) Rules in cACLD > 17 kPa (2.4 m/sec) Suggestive of CSPH ARFI = acoustic radiation force impulse cACLD = compensated advanced chronic liver disease CSPH = clinically significant portal hypertension NAFLD = non-alcoholic fatty liver disease IMPRESSION: 1. Hepatic steatosis. 2. Liver elastography results indicate a high probability of being normal. Dictated by It Project Coordinator: Cass Bennett DO I, Samantha Chandler MD, have supervised the procedure and/or image review, and agree with the above interpretation and report. This report was electronically signed by Samantha Chandler MD 04/22/2021 1:02 PM Reported By: SAMANTHA CHANDLER M.D. Signed By: SAMANTHA CHANDLER M.D. [facility] XR Abdomen Supine and Uprigh ton 03-22-2021 IMPRESSION: Moderate fecal debris Rn Transitional: JUAN Transcribe Date/Time: Mar 22 2021 7:38P Dictated by : LUIS MARTINEZ DO This examination was interpreted and the report reviewed and electronically signed by: LUIS MARTINEZ DO on Mar 22 2021 7:39PM EST DIVISION OF RADIOLOGY * * *Final Report* * * DATE OF EXAM: Mar 22 2021 10:21AM WOX [id number] - XR ABDOMEN 1V SUPINE / PROCEDURE REASON: Irritable bowel syndrome with constipation * * * * Physician Interpretation * * * * Abdomen supine: HISTORY: Indication: Irritable bowel syndrome with constipation hx of contipation for the last couple of years with pain in upper right quad. hx of contipation for the last couple of years with pain in upper right quad. TECHNIQUE: Views obtained: XR ABDOMEN 1V SUPINE Comparison: NONE. RESULT: Findings: Postsurgical clips noted in the RIGHT upper quadrant expected region of the gallbladder fossa No abnormal calcifications are seen. Large amount of fecal debris The bowel gas pattern is nonspecific and unremarkable.. No bony abnormalities are seen DIVISION OF RADIOLOGY Provider, Sathya [facility] - 03/22/2021 * * *Final Report* * * DATE OF EXAM: Mar 22 2021 10:21AM WOX 5289 - XR ABDOMEN 1V SUPINE / PROCEDURE REASON: Irritable bowel syndrome with constipation * * * * Physician Interpretation * * * * Abdomen supine: HISTORY: Indication: Irritable bowel syndrome with constipation hx of contipation for the last couple of years with pain in upper right quad. hx of contipation for the last couple of years with pain in upper right quad. TECHNIQUE: Views obtained: XR ABDOMEN 1V SUPINE Comparison: NONE. RESULT: Findings: Postsurgical clips noted in the RIGHT upper quadrant expected region of the gallbladder fossa No abnormal calcifications are seen. Large amount of fecal debris The bowel gas pattern is nonspecific and unremarkable.. No bony abnormalities are seen IMPRESSION IMPRESSION: Moderate fecal debris Rn Transitional: JUAN Transcribe Date/Time: Mar 22 2021 7:38P Dictated by : LUIS MARTINEZ DO This examination was interpreted and the report reviewed and electronically signed by: LUIS MARTINEZ DO on Mar 22 2021 7:39PM EST [facility] Radiology Study observation (narrative) [facility] XR Abdomen Supine and Uprigh tOrdered By: Ccf Provider on 03-22-2021 [facility] XR Chest PA and Lateralon IMPRESSION: No acute radiographic abnormality. Rn Transitional: JUAN Transcribe Date/Time: Mar 29 2020 5:04P Dictated by : DEJON MERINO MD This examination was interpreted and the report reviewed and electronically signed by: DEJON MERINO MD on Mar 29 2020 5:04PM [facility] DIVISION OF RADIOLOGY * * *Final Report* * * DATE OF EXAM: Mar 29 2020 4:58PM WOX 5291 - XR CHEST 2V FRONTAL/LAT / PROCEDURE REASON: Cough * * * * Physician Interpretation * * * * EXAMINATION: CHEST RADIOGRAPH (2 VIEW FRONTAL & LATERAL) CLINICAL HISTORY: Cough MQ: XC2_6 EXAM DATE/TIME: 03/29/2020 4:58 PM COMPARISON: 06/08/2019 RESULT: Lines, tubes, and devices: Stable cardiac conduction leads. Lungs and pleura: No consolidation. No lung mass. No pleural effusion. No pneumothorax. Cardiomediastinal silhouette: Normal cardiomediastinal silhouette. Bones and soft tissues: Unremarkable. DIVISION OF RADIOLOGY Provider, [facility] - 03/29/2020 * * *Final Report* * * DATE OF EXAM: Mar 29 2020 4:58PM WOX 5291 - XR CHEST 2V FRONTAL/LAT / PROCEDURE REASON: Cough * * * * Physician Interpretation * * * * EXAMINATION: CHEST RADIOGRAPH (2 VIEW FRONTAL & LATERAL) CLINICAL HISTORY: Cough MQ: XC2_6 EXAM DATE/TIME: 03/29/2020 4:58 PM COMPARISON: 06/08/2019 RESULT: Lines, tubes, and devices: Stable cardiac conduction leads. Lungs and pleura: No consolidation. No lung mass. No pleural effusion. No pneumothorax. Cardiomediastinal silhouette: Normal cardiomediastinal silhouette. Bones and soft tissues: Unremarkable. IMPRESSION IMPRESSION: No acute radiographic abnormality. Rn Transitional: JUAN Transcribe Date/Time: Mar 29 2020 5:04P Dictated by : DEJON MERINO MD This examination was interpreted and the report reviewed and electronically signed by: DEJON MERINO MD on Mar 29 2020 5:04PM [facility] Radiology Study observation (narrative) Amna Caputo XR Chest PA and LateralOrder ed By: Ccf Provider on 03-29-2020 [facility] ANES POSTPROC EVALon 020 ANES POSTPROC EVAL HNO ID: [id number] Author: Lon Hannon Service: ? Author Type: Anesthesiologist Type: Anesthesia Postprocedure Evaluation Filed: 03/11/2020 12:47 PM Note Text: POST ANESTHESIA EVALUATION NOTE : 1970 Procedure Summary Date: 03/11/20 Room / Location: [facility] / [facility] Anesthesia Start: 1018 Anesthesia Stop: 1108 Procedures: COLONOSCOPY (N/A ) EGD WITH BIOPSY (N/A ) Diagnosis: RUQ pain Family history of colon cancer Surgeons: Ab Canales Responsible Provider: Lon Hannon Anesthesia Type: MAC ASA Status: 3 Anesthesia Type: MAC Last vitals Vitals Value Taken Time BP 122/56 03/11/20 1215 Temp 36 ?C (96.8 ?F) 03/11/20 1108 HR SpO2 60 03/11/20 1215 Resp 16 03/11/20 1215 SpO2 97 % 03/11/20 1215 Post Anesthesia Patient Status Patient Evaluation: PACU. Anticipated Disposition: phase 2 then home. Neurological Status: aware and responsive. Pulmonary Status: breathing comfortably on room air Airway Control: returned to baseline unsupported. Cardiovascular Status: stable. Pain Management: clinically adequate Postoperative Hydration: acceptable. Intraoperative Events: no significant anesthesia events Post Operative Nausea/Vomiting Status: no significant post operative nausea or vomiting Anesthetic Observations: Recommendation: continue current plan of care. SIGNATURE: Lon Hannon MD PATIENT NAME: Sylvia Mancuso DATE: March 11, 2020 TIME: 12:47 PM CSN: [id number] [facility] ANES PRE-OPon 03-11-2020 ANES PRE-OP HNO ID: [id number] Author: Lon Hannon Service: ? Author Type: Anesthesiologist Type: Anesthesia Preprocedure Evaluation Filed: 03/11/2020 9:13 AM Note Text: ANESTHESIOLOGY DAY OF SURGERY NOTE : 1970 Procedure(s) (LRB): COLONOSCOPY (N/A) EGD (N/A) Surgeon(s): Ab Canales Estimated body mass index is 30.29 kg/m? as calculated from the following: Height as of this encounter: 165.1 cm (5' 5). Weight as of this encounter: 82.6 kg (182 lb). Most recent hematocrit and potassium results: Hematocrit 38.7 01/16/2020 Potassium 4.0 01/16/2020 Relevant Problems CARDIO (+) Biventricular cardiac pacemaker in situ (+) CHF (NYHA class II, ACC/AHA stage C) ([facility]) (+) Left bundle branch block (+) Pacemaker NEURO-PSYCH (+) H/O cardiomyopathy I - PHYSICAL EVALUATION AIRWAY Patient intubated: No. Mallampati: II. TM distance: >3 FB. Neck ROM: full ROM without neurological symptoms. Mouth opening: adequate. DENTAL Dental findings: teeth intact. II - ANESTHESIA PLAN ASA Score: 3 Anesthetic Plan: MAC NPO Status: adequate Monitoring plan: standard ASA. Postoperative analgesic plan: parenteral or oral opioids. Anesthetic Risks, Benefits, Alternatives, Personnel Discussed. Consent obtained from: patient. Patient / Surrogate agrees to blood products: blood products not planned Vitals Value Taken Time BP 112/56 03/11/20 0836 Pulse 68 03/11/20 0836 Resp 16 03/11/2036 Temp 37 ?C (98.6 ?F) 03/11/20 0836 SpO2 100 % 03/11/20 0836 Facility-Administered Medications as of 03/11/2020 Medication Dose Route Frequency - lactated ringers infusion 30 mL/hr INTRAVENOUS CONTINUOUS - midazolam (PF) 1 mg injection (VERSED) 1 mg INTRAVENOUS ONCE Outpatient Medications as of 03/11/2020 Medication Sig - polyethylene glycol 3350 (MIRALAX) 17 gram/dose powder Take 17 g by mouth once daily. - venlafaxine ER (EFFEXOR XR) 75 mg 24 hr capsule Take 1 capsule by mouth once daily. - gabapentin (NEURONTIN) 300 mg capsule Take 1 capsule by mouth daily at bedtime for 181 days. - diclofenac, EC, (VOLTAREN) 75 mg EC tablet Take 1 tablet by mouth twice daily. For pain/inflammation. Take with food. - lisinopril 2.5 mg tablet Take 1 tablet by mouth once daily. - atenolol (TENORMIN) 25 mg tablet Take 1 tablet by mouth once daily. - hydrOXYzine HCl (ATARAX) 25 mg tablet Take 1 tablet by mouth every 6 hours as needed for Anxiety. - Calcium Glycerophosphate (PRELIEF) 65 mg tab Take by mouth as needed. I have interviewed and examined the patient. I have reviewed the medical record and/or the pre-anesthesia evaluation, pertinent labs, and test results. This contains updated information obtained within 48 hours of Surgery/Procedure. SIGNATURE: Lon Hannon MD PATIENT NAME: Sylvia Mancuso DATE: March 11, 2020 TIME: 9:13 AM CSN: [id number] Normal [facility] HISTORY PHYSICALon 0 HISTORY PHYSICAL HNO ID: [id number] Author: Ab Canales Service: General Surgery Author Type: Physician Type: HANDP Filed: 03/11/2020 8:36 AM Note Text: This Team Access Model visit is a virtual encounter.? It required patient-provider interaction for the medical decision making as documented below. The patient is identified by name and birthday. Patient location: [place] ? The patient is aware that I am not fully able to assess symptoms and do a full physical exam including vital signs in the office at this time.The patient consented to this type of encounter since it was performed by phone / virtually due to the COVID-19 epidemic as an effort to protect patients and minimize exposure. ? Sylvia Mancuso a 50 year old female who is a consultation requested by Dr. Lyons for an opinion regarding RLQ pain. My final recommendations will be communicated back to the requesting physician by way of shared Medical record. The patient has not been seen previously. The patient reports a family history of colon cancer in that her mother had the disease. She tells me that her mother no longer has colon cancer. ? The patient has a history of cardiomyopathy and has a pacemaker/defibrillat or. ? Evaluated in [facility] ED 01/14/20. Labs unremarkable aside from potassium of 3.4. lipase and CBC normal. CT abd/pelvis negative for acute findings aside from fluid in the vaginal canal, ?heterogenous appearance of cervix recommending pelvic US to further evaluate, and small pulmonary nodule with recommendation for f/u in 6-12 months. ? Component Latest Ref Rng AND Units 01/16/2020 WBC 3.70 - 11.00 k/uL 8.16 RBC 3.90 - 5.20 m/uL 4.30 Hemoglobin 11.5 - 15.5 g/dL 12.7 Hematocrit 36.0 - 46.0 % 38.7 MCV 80.0 - 100.0 fL 90.0 MCH 26.0 - 34.0 pG 29.5 MCHC 30.5 - 36.0 g/dL 32.8 RDW-CV 11.5 - 15.0 % 12.8 Platelet Count 150 - 400 k/uL 238 MPV 9.0 - 12.7 fL 10.9 Neut% % 70.6 Abs Neut (ANC) 1.45 - 7.50 k/uL 5.76 Lymph% % 20.1 Abs Lymph 1.00 - 4.00 k/uL 1.64 [place]% % 8.2 Abs [place] <0.87 k/uL 0.67 Eosin% % 0.7 Abs Eosin <0.46 k/uL 0.06 Baso% % 0.4 Abs Baso <0.11 k/uL 0.03 Nucleated Reds 0 /100 WBC 0.0 Absolute nRBC <0.01 k/uL <0.01 Diff Type ? Auto Diff WSR 0 - 20 mm/hr 8 CRP <0.9 mg/dL 0.5 ? Component Latest Ref Rng AND Units 01/16/2020 Protein, Total 6.3 - 8.0 g/dL 6.5 Albumin 3.9 - 4.9 g/dL 4.0 Calcium 8.5 - 10.2 mg/dL 8.9 Bilirubin, Total 0.2 - 1.3 mg/dL 0.2 Alkaline Phosphatase 34 - 123 U/L 76 AST 13 - 35 U/L 18 Glucose 74 - 99 mg/dL 90 BUN 7 - 21 mg/dL 9 Creatinine 0.58 - 0.96 mg/dL 0.84 Sodium 136 - 144 mmol/L 139 Potassium 3.7 - 5.1 mmol/L 4.0 Chloride 97 - 105 mmol/L 103 CO2 22 - 30 mmol/L 25 Anion Gap 9 - 18 mmol/L 11 ALT 7 - 38 U/L 16 eGFR- ? >60 eGFR-All Other Races . >60 ? ? ? Presenting complaint: Patient was seen in [facility] ED 01/13 with abdominal pain, nausea and vomiting. Since discharge,?pain has improved to 8/10 and nausea/vomiting has resolved. Describes pain as constant sharp/dull on right side with radiation into her back. Denies exacerbating factors. Not taking anything for it OTC. ? ?Reporting that she has had pain for 4 weeks, sick off and on. She tells me that her pain is on the left side, near the ribs and radiates through to the back. She describes it as a constant discomfort that isn't as bad as it was. ? She tells me that her first bowel movement was Wednesday. Stool was hard small clustering of stool. Minimal relief of discomfort. I have recommended Miralax, fluids and fiber. ? REVIEW OF SYSTEMS: ? ? PAST MEDICAL HISTORY PAST MEDICAL HISTORY Diagnosis Date - Cardiac defibrillator in place ? - Cyst of Bartholin's gland ? - Pacemaker ? - PMH - PAST MEDICAL HISTORY OF 2004 ? Cardiomyopathy ? ? PAST SURGICAL HISTORY PAST SURGICAL HISTORY Procedure Laterality Date - APPENDECTOMY ? ? - IANDD VULVA/PERINE ABSCE TEN GLD ? 1999 - ICD (ICD) ? ? - LAPAROSCOPIC CHOLEYCYSTECTOMY ? ? ? Cholecystectomy, lap - PAST SURGICAL HISTORY OF ? ? ? ankle /screws and plate ? ? FAMILY HISTORY FAMILY HISTORY Problem Relation Age of Onset - Stroke Maternal Grandmother ? - Colon Cancer Mother ? - Lipids Mother ? ? ? CURRENT MEDICATIONS Current Outpatient Medications Medication Sig Dispense Refill - venlafaxine ER (EFFEXOR XR) 75 mg 24 hr capsule Take 1 capsule by mouth once daily. 30 capsule 2 - gabapentin (NEURONTIN) 300 mg capsule Take 1 capsule by mouth daily at bedtime for 181 days. 30 capsule 5 - diclofenac, EC, (VOLTAREN) 75 mg EC tablet Take 1 tablet by mouth twice daily. For pain/inflammation. Take with food. 60 tablet 5 - lisinopril 2.5 mg tablet Take 1 tablet by mouth once daily. 90 tablet 3 - atenolol (TENORMIN) 25 mg tablet Take 1 tablet by mouth once daily. 90 tablet 3 - hydrOXYzine HCl (ATARAX) 25 mg tablet Take 1 tablet by mouth every 6 hours as needed for Anxiety. 30 tablet 2 - Calcium Glycerophosphate (PRELIEF) 65 mg tab Take by mouth as needed. ? 0 ? No current facility-administered medications for this visit. ? ? SOCIAL HISTORY: Patient is . She has never smoked. Sylvia reports her alcohol use as never. ? ? PHYSICAL EXAMINATION: Video Exam (Examination performed via Video enabled technology) General Appearance: Well appearing, alert, in no acute distress, well-hydrated, well nourished. Skin: Skin color normal. Head: Normocephalic, no obvious abnormalities. Eyes: Anicteric sclera. Pupils are equally round. Oropharynx: Lips, tongue and teeth normal. Neck: No obvious masses. Breathing easily and unlabored. Able to speak in complete sentences. Neurologic: Alert and oriented. Good judgement. Answers apporpriately. ? Impression: bilateral upper abd pain 2)RLQ pain 3)family history of colon cancer ? Plan: The patient will be scheduled for an upper endoscopy as well as a colonoscopy. Preparation for the procedures, using GoLytely as the laxative, have been explained in detail. The risks, benefits, anticipated outcomes and possible complications were mentioned, including including failure to complete the endoscopy and perforation. I explained the procedure in understandable terms and the patient will be mailed printed material concerning the planned procedure. The patient had the opportunity to ask questions concerning the planned procedure. The patient freely consents to the planned procedure. ? The patient will be scheduled for procedures at [facility]. The patient and I have discussed in detail the risk of exposure to and/or potential harm posed by the COVID-19 virus with having a procedure at this time versus the risk of? delaying the procedure. The patient is aware that it is not possible to know either the risk of delaying the procedure or chance of getting an infection with perfect accuracy, but I have explained to the patient the measures that are being taken to minimize any potential risk of infection. A joint decision was made between the patient and me?to proceed at this time with the scheduled procedure. The patient is aware of the need for COVID testing. ? The patient is encouraged to call with any questions or concerns, or should there be any change in health status between now and the scheduled procedure. ? I have personally interviewed and examined this patient using video technology. The encounter was 18 minutes in length. ? Lexis Gomez RN HOME HEALTH CLINICIAN.NURSE SCHOOL ?9:55 PM Normal [facility] NURSING PROGon 03-11-2020 NURSING PROG HNO ID: [id number] Author: Brittany (Rn) MARIA EUGENIA Roblero Service: Nursing Author Type: Registered Nurse Type: Nursing Progress Note Filed: 03/11/2020 1:20 PM Note Text: Nursing Progress Note Patient Name: Sylvia Mancuso [facility] pt given work excuse stating that she was here today and can return to work tomorrow as she feels able, also aware she needs to contact office if she needs off longer than tomorrow. Pt verbalizes understanding. at bedside. This note was completed by: Brittany Roblero RN [facility] PT EDon 03-11-2020 PT ED HNO ID: [id number] Author: Brittany HobbsRn) MARIA EUGENIA Roblero Service: Nursing Author Type: Registered Nurse Type: Patient Education Filed: 03/11/2020 1:16 PM Note Text: POST OP LEARNING RESPONSE INSTRUCTION PROVIDED TO: Patient and family member METHOD OF INSTRUCTION: Written instruction - handouts Verbal instruction PATIENT / FAMILY RESPONSE: Verbalizes understanding of: INFECTION MANAGEMENT-Signs and symptoms of an infection and importance of contacting the physician MEDICATION PRESCRIBED-Accurate knowledge of prescribed medication prior to discharge PAIN MANAGEMENT-Effective strategies to manage pain in addition to pain medication PHYSICAL RESTRICTIONS-Physical restrictions and recommendations after discharge from the hospital POST-OPERATIVE INSTRUCTIONS-Correct actions to take to reduce postoperative complications SYMPTOM MANAGEMENT-Correct actions to take to manage symptoms associated with his/her disease/illness WORSENING CONDITION-Signs and symptoms of a worsening condition that warrant a call to the physician WOUND CARE-Correct procedure to perform wound care FOLLOW-UP PLAN: Patient instructed to call with any further issues Contact information given. SUPPLEMENTAL MATERIAL: None REFERRAL (RECOMMENDATION): None Electronically Signed By: Brittany Roblero RN In Department: [facility] ENDOSCOPY [facility] PT ED HNO ID: [id number] Author: Vivian HobbsRn) Sammy RN Service: ? Author Type: Registered Nurse Type: Patient Education Filed: 03/11/2020 8:29 AM Note Text: PRE OP LEARNING ASSESSMENT PROCEDURE/SURGERY: GI PROCEDURES: Colonoscopy and EGD READINESS TO LEARN COGNITIVE ABILITY: Alert and oriented MOTIVATION TO LEARN: Interested FAMILY SUPPORT: Unable to assess - Family not present PATIENT LEARNS BEST BY: Verbal Instruction FACTORS AFFECTING LEARNING: None PHYSICAL LIMITATIONS AFFECTING LEARNING: None Electronically Signed By: Vivian Christianson RN In Department: [facility] ENDOSCOPY [facility] SURGICAL PATHOLOGYon 020 SURGICAL PATHOLOGY Specimen originated from [facility] Specimen #: [id number] Submitting Physician: Ab Canales M.D. FINAL DIAGNOSIS 1. Jejunum, biopsy (A) - Small bowel mucosa with no pathologic diagnostic abnormality; negative for celiac disease, granulomas, Giardia and dysplasia. 2. Stomach, antrum, biopsy (B) - Gastric oxyntic-type mucosa with no pathologic diagnostic abnormality; see comment. 3. Esophagus, distal, biopsy (C) - Squamous mucosa and slightly inflamed gastric mucosa; negative for intestinal metaplasia and dysplasia. 4. Esophagus, mid, biopsy (D) - Squamous mucosa with no pathologic diagnostic abnormality; negative for intraepithelial eosinophils. SS/glw 03/12/2020 COMMENT 2. No microorganisms morphologically compatible with H. pylori are identified on routine H&E stained sections. Cecilia Ferguson M.D. (Electronic Signature) ____ SPECIMEN SUBMITTED A: JEJUNUM, BIOPSY B: GASTRIC/ANTRAL, BIOPSY C: DISTAL ESOPHAGUS, BIOPSY D: MID ESOPHAGUS, BIOPSY CLINICAL DATA RIGHT UPPER QUADRANT ABDOMINAL PAIN, LMP: NA B: R/O H. PYLORI C: DISTAL ESOPHAGITIS GROSS DESCRIPTION A. Received in formalin is one piece of reyes, soft tissue measuring 0.3 x 0.2 x 0.2 cm. Totally submitted in one cassette. B. Received in formalin is one piece of reyes, soft tissue measuring 0.2 x 0.2 x 0.1 cm. Totally submitted in one cassette. C. Received in formalin is one piece of reyes, soft tissue measuring 0.2 x 0.2 x 0.2 cm. Totally submitted in one cassette. D. Received in formalin is one piece of reyes, soft tissue measuring 0.3 x 0.2 x 0.1 cm. Totally submitted in one cassette. Gross examination performed at [facility], [address] [place] [address] EJL 03/11/2020 5:08:43 PM Date of Report: 03/12/2020 Date of Procedure: 03/11/2020 Date of Receipt: 03/11/2020 Submitted by: Ab Canales M.D. Location: [facility] Diagnostic interpretation performed at [facility], [address] [place] [address]. CLIA Number: [id number] [facility] HOSP 02-01-2020 [facility] Patient:Sylvia Mancuso MRN: Height:5' 5[per patient[(1.651 m) Weight:182 lb (82.555 kg) Outpatient Medications as of 03/11/20: polyethylene glycol 3350 (MIRALAX) 17 gram/dose powder venlafaxine ER (EFFEXOR XR) 75 mg 24 hr capsule gabapentin (NEURONTIN) 300 mg capsule diclofenac, EC, (VOLTAREN) 75 mg EC tablet lisinopril 2.5 mg tablet atenolol (TENORMIN) 25 mg tablet hydrOXYzine HCl (ATARAX) 25 mg tablet Calcium Glycerophosphate (PRELIEF) 65 mg tab Admission/Clinic Administered Medications as of 03/11/20: lactated ringers infusion benzocaine 20% 1 [place] (TOPEX) Problem List: Other primary cardiomyopathies [I42.8] Family history of colon cancer [Z80.0] CHF (NYHA class II, ACC/AHA stage C) (HCC) [I50.9] Left bundle branch block [I44.7] Automatic implantable cardiac defibrillator in situ [Z95.810] Biventricular cardiac pacemaker in situ [Z95.0] Pain in joint, pelvic region and thigh [M25.559] Thoracic or lumbosacral neuritis or radiculitis, unspecified [QMW9082] Cervicalgia [M54.2] Lumbago [M54.5] Brachial neuritis or radiculitis [M54.12] Foraminal stenosis of cervical region [M48.02] Cervical spondylosis without myelopathy [M47.812] Cervical spondylosis [M47.812] Right cervical radiculopathy [M54.12] H/O cardiomyopathy [Z86.79] Stress incontinence in female [N39.3] Unsteady gait [R26.81] Abnormality of gait [R26.9] Fall due to stumbling [W01.0XXA] Biventricular ICD (implantable cardioverter-defibril lator) in place [Z95.810] Acute pain of left shoulder [M25.512] Pacemaker [Z95.0] Allergies: Carvedilol environmental [Other] Naproxen Vancomycin Date Verified: 03/11/20 Lab Values No results within the last 30 days for the following basenames: K,HCT No progress notes entered within the past 30 days [facility] Vital Signs Date Time Vital Sign Value Performing Clinician Facility 12-07-2024 08:02-0400 Body height 152.[address] Bhavana Rodríguez MD Work Phone: [facility] 12-07-2024 08:02-0400 Body mass index (BMI) [Ratio] 35.2 kg/m2 Dr. Bhavana Rodríguez MD Work Phone: [facility] 12-07-2024 08:02-0400 Body temperature 98 [degF] Dr. Bhavana Rodríguez MD Work Phone: [facility] 12-07-2024 08:02-0400 Body weight 81.[address] Bhavana Rodríguez MD Work Phone: [facility] 12-07-2024 08:02-0400 Diastolic blood pressure 71 mm[Hg] Dr. Bhavana Rodríguez MD Work Phone: [facility] 12-07-2024 08:02-0400 Heart rate 74 /min Dr. Bhavana Rodríguez MD Work Phone: [facility] 12-07-2024 08:02-0400 Respiratory rate 16 /min Dr. Bhavana Rodríguez MD Work Phone: [facility] 12-07-2024 08:02-0400 SaO2% (BldA) [Mass fraction] 96 % Dr. Bhavana Rodríguez MD Work Phone: [facility] 12-07-2024 08:02-0400 Systolic blood pressure 106 mm[Hg] Dr. Bhavana Rodríguez MD Work Phone: [facility] 11-13-2024 15:02-0400 Body height 152.[address] Bhavana Rodríguez MD Work Phone: [facility] 11-13-2024 15:02-0400 Body mass index (BMI) [Ratio] 35.7 kg/m2 Dr. Bhavana Rodríguez MD Work Phone: [facility] 11-13-2024 15:02-0400 Body temperature 98 [degF] Dr. Bhavana Rodríguez MD Work Phone: [facility] 11-13-2024 15:02-0400 Body weight [address] Bhavana Rodríguez MD Work Phone: [facility] 11-13-2024 15:02-0400 Diastolic blood pressure 72 mm[Hg] Dr. Bhavana Rodríguez MD Work Phone: [facility] 11-13-2024 15:02-0400 Heart rate 86 /min Dr. Bhavana Rodríguez MD Work Phone: [facility] 11-13-2024 15:02-0400 Respiratory rate 16 /min Dr. Bhavana Rodríguez MD Work Phone: [facility] 11-13-2024 15:02-0400 SaO2% (BldA) [Mass fraction] 95 % Dr. Bhavana Rodríguez MD Work Phone: [facility] 11-13-2024 15:02-0400 Systolic blood pressure 118 mm[Hg] Dr. Bhavana Rodríguez MD Work Phone: [facility] 11-08-2024 18:16-0400 Body mass index (BMI) [Ratio] 31.22 kg/m2 Crystal Ashford APRN.CNP Work Phone: [facility] 11-08-2024 18:16-0400 Body temperature 97.81 [degF] Crystal Ashford APRN.NURSE SCHOOL Work Phone: [facility] 11-08-2024 18:16-0400 Body weight 82.5 kg Crystal Ashford APRN.NURSE SCHOOL Work Phone: [facility] 11-08-2024 18:16-0400 Diastolic blood pressure 70 mm[Hg] Crystal Ashford APRN.NURSE SCHOOL Work Phone: [facility] 11-08-2024 18:16-0400 Heart rate 82 /min Crystal Ashford APRN.NURSE SCHOOL Work Phone: [facility] 11-08-2024 18:16-0400 Respiratory rate 18 /min Crystal Ashford APRN.NURSE SCHOOL Work Phone: [facility] 11-08-2024 18:16-0400 SaO2% (BldA) [Mass fraction] 98 % Crystal Ashford APRN.NURSE SCHOOL Work Phone: [facility] 11-08-2024 18:16-0400 Systolic blood pressure 105 mm[Hg] Crystal Ashford APRN.NURSE SCHOOL Work Phone: [facility] 08-25-2024 05:28-0400 Body height 152.[address] Bhavana Rodríguez MD Work Phone: [facility] 08-25-2024 05:28-0400 Body mass index (BMI) [Ratio] 35.3 kg/m2 Dr. Bhavana Rodríguez MD Work Phone: [facility] 08-25-2024 05:28-0400 Body temperature 97.4 [degF] Dr. Bhavana Rodríguez MD Work Phone: [facility] 08-25-2024 05:28-0400 Body weight 82.[address] Bhavana Rodríguez MD Work Phone: [facility] 08-25-2024 05:28-0400 Diastolic blood pressure 68 mm[Hg] Dr. Bhavana Rodríguez MD Work Phone: [facility] 08-25-2024 05:28-0400 Heart rate 75 /min Dr. Bhavana Rodríguez MD Work Phone: [facility] 08-25-2024 05:28-0400 Respiratory rate 18 /min Dr. Bhavana Rodríguez MD Work Phone: [facility] 08-25-2024 05:28-0400 SaO2% (BldA) [Mass fraction] 97 % Dr. Bhavana Rodríguez MD Work Phone: [facility] 08-25-2024 05:28-0400 Systolic blood pressure 101 mm[Hg] Dr. Bhavana Rodríguez MD Work Phone: [facility] 08-11-2024 13:24-0500 Body mass index (BMI) [Ratio] 31.41 kg/m2 Brittany Florian HOME HEALTH CLINICIAN.NURSE SCHOOL Work Phone: [facility] 08-11-2024 13:24-0500 Body temperature 98.2 [degF] Brittany Florian HOME HEALTH CLINICIAN.NURSE SCHOOL Work Phone: [facility] 08-11-2024 13:24-0500 Body weight 83 kg Brittany Florian HOME HEALTH CLINICIAN.NURSE SCHOOL Work Phone: [facility] 08-11-2024 13:24-0500 Diastolic blood pressure 78 mm[Hg] Brittany Florian HOME HEALTH CLINICIAN.NURSE SCHOOL Work Phone: [facility] 08-11-2024 13:24-0500 Heart rate 114 /min Brittany Florian HOME HEALTH CLINICIAN.NURSE SCHOOL Work Phone: [facility] 08-11-2024 13:24-0500 Respiratory rate 20 /min Brittany Florian HOME HEALTH CLINICIAN.NURSE SCHOOL Work Phone: [facility] 08-11-2024 13:24-0500 SaO2% (BldA) [Mass fraction] 95 % Brittany Florian HOME HEALTH CLINICIAN.NURSE SCHOOL Work Phone: [facility] 08-11-2024 13:24-0500 Systolic blood pressure 110 mm[Hg] Brittany Ike HOME HEALTH CLINICIAN.NURSE SCHOOL Work Phone: [facility] 07-20-2024 15:56-0500 Body height 165.1 cm Monisha Paystrup ALUMINUM SIDING APPLICATOR Work Phone: [facility] 07-20-2024 15:56-0500 Body mass index (BMI) [Ratio] 29.2 kg/m2 Monisha Paystrup ALUMINUM SIDING APPLICATOR Work Phone: [facility] 07-20-2024 15:56-0500 Body weight 79.61 kg Monisha Paystrup ALUMINUM SIDING APPLICATOR Work Phone: [facility] 07-20-2024 15:56-0500 Diastolic blood pressure 60 mm[Hg] Monisha Paystrup ALUMINUM SIDING APPLICATOR Work Phone: [facility] 07-20-2024 15:56-0500 Heart rate 90 /min Monisha Paystrup ALUMINUM SIDING APPLICATOR Work Phone: [facility] 07-20-2024 15:56-0500 SaO2% (BldA) [Mass fraction] 94 % Monisha Paystrup ALUMINUM SIDING APPLICATOR Work Phone: [facility] 07-20-2024 15:56-0500 Systolic blood pressure 120 mm[Hg] Monisha Paystrup ALUMINUM SIDING APPLICATOR Work Phone: [facility] 07-12-2024 10:45-0500 Body mass index (BMI) [Ratio] 30.95 kg/m2 Charanjit Coker HOME HEALTH CLINICIAN.NURSE SCHOOL Work Phone: [facility] 07-12-2024 10:45-0500 Body temperature 98.71 [degF] Charanjit Coker HOME HEALTH CLINICIAN.NURSE SCHOOL Work Phone: [facility] 07-12-2024 10:45-0500 Body weight 81.8 kg Charanjit Coker HOME HEALTH CLINICIAN.NURSE SCHOOL Work Phone: [facility] 07-12-2024 10:45-0500 Diastolic blood pressure 70 mm[Hg] Charanjit Coker APRN.NURSE SCHOOL Work Phone: [facility] 07-12-2024 10:45-0500 Heart rate 88 /min Charanjit Coker HOME HEALTH CLINICIAN.NURSE SCHOOL Work Phone: [facility] 07-12-2024 10:45-0500 Respiratory rate 16 /min Charanjit Coker HOME HEALTH CLINICIAN.NURSE SCHOOL Work Phone: [facility] 07-12-2024 10:45-0500 SaO2% (BldA) [Mass fraction] 97 % Charanjit Coker HOME HEALTH CLINICIAN.NURSE SCHOOL Work Phone: [facility] 07-12-2024 10:45-0500 Systolic blood pressure 110 mm[Hg] Charanjit Coker HOME HEALTH CLINICIAN.NURSE SCHOOL Work Phone: [facility] 06-27-2024 08:15-0500 Body weight 77.[address] Bhavana Rodríguez MD Work Phone: [facility] 06-27-2024 08:15-0500 Heart rate 88 /min Dr. Bhavana Rodríguez MD Work Phone: [facility] 06-27-2024 08:15-0500 SaO2% (BldA) [Mass fraction] 97 % Dr. Bhavana Rodríguez MD Work Phone: [facility] 05-31-2024 08:03-0500 Body mass index (BMI) [Ratio] 28.6 kg/m2 Dr. Bhavana Rodríguez MD Work Phone: [facility] 05-31-2024 08:03-0500 Body temperature 97.1 [degF] Dr. Bhavana Rodríguez MD Work Phone: [facility] 05-31-2024 08:03-0500 Body weight 78.[address] Bhavana Rodríguez MD Work Phone: [facility] 05-31-2024 08:03-0500 Diastolic blood pressure 70 mm[Hg] Dr. Bhavana Rodríguez MD Work Phone: [facility] 05-31-2024 08:03-0500 Heart rate 71 /min Dr. Bhavana Rodríguez MD Work Phone: [facility] 05-31-2024 08:03-0500 Respiratory rate 18 /min Dr. Bhavana Rodríguez MD Work Phone: [facility] 05-31-2024 08:03-0500 SaO2% (BldA) [Mass fraction] 97 % Dr. Bhavana Rodríguez MD Work Phone: [facility] 05-31-2024 08:03-0500 Systolic blood pressure 106 mm[Hg] Dr. Bhavana Rodríguez MD Work Phone: [facility] 03-18-2024 14:57-0400 Body mass index (BMI) [Ratio] 28 kg/m2 Crystal Ashford APRN.NURSE SCHOOL Work Phone: [facility] 03-18-2024 14:57-0400 Body temperature 97.81 [degF] Crystal Ashford APRN.NURSE SCHOOL Work Phone: [facility] 03-18-2024 14:57-0400 Body weight 74 kg Crystal Ashford APRN.NURSE SCHOOL Work Phone: [facility] 03-18-2024 14:57-0400 Diastolic blood pressure 70 mm[Hg] Crystal Ashford APRN.NURSE SCHOOL Work Phone: [facility] 03-18-2024 14:57-0400 Heart rate 81 /min Crystal Ashford APRN.NURSE SCHOOL Work Phone: [facility] 03-18-2024 14:57-0400 Respiratory rate 18 /min Crystal Ashford APRN.NURSE SCHOOL Work Phone: [facility] 03-18-2024 14:57-0400 SaO2% (BldA) [Mass fraction] 98 % Crystal Ashford APRN.NURSE SCHOOL Work Phone: [facility] 03-18-2024 14:57-0400 Systolic blood pressure 103 mm[Hg] Crystal Ashford APRN.NURSE SCHOOL Work Phone: [facility] 03-10-2024 08:02-0400 Body mass index (BMI) [Ratio] 28 kg/m2 Charanjit Coker HOME HEALTH CLINICIAN.NURSE SCHOOL Work Phone: [facility] 03-10-2024 08:02-0400 Body temperature 98.01 [degF] Charanjit Coker HOME HEALTH CLINICIAN.NURSE SCHOOL Work Phone: [facility] 03-10-2024 08:02-0400 Body weight 74 kg Charanjit Coker HOME HEALTH CLINICIAN.NURSE SCHOOL Work Phone: [facility] 03-10-2024 08:02-0400 Diastolic blood pressure 74 mm[Hg] Charanjit Coker HOME HEALTH CLINICIAN.NURSE SCHOOL Work Phone: [facility] 03-10-2024 08:02-0400 Heart rate 87 /min Charanjit Coker HOME HEALTH CLINICIAN.NURSE SCHOOL Work Phone: [facility] 03-10-2024 08:02-0400 Respiratory rate 20 /min Charanjit Coker HOME HEALTH CLINICIAN.NURSE SCHOOL Work Phone: [facility] 03-10-2024 08:02-0400 SaO2% (BldA) [Mass fraction] 99 % Charanjit Coker HOME HEALTH CLINICIAN.NURSE SCHOOL Work Phone: [facility] 03-10-2024 08:02-0400 Systolic blood pressure 108 mm[Hg] Charanjit Coker HOME HEALTH CLINICIAN.NURSE SCHOOL Work Phone: [facility] 03-01-2024 12:58-0400 Body mass index (BMI) [Ratio] 27.4 kg/m2 Shaan Marquez HOME HEALTH CLINICIAN.NURSE SCHOOL Work Phone: [facility] 03-01-2024 12:58-0400 Body temperature 97.81 [degF] Shana Marquez HOME HEALTH CLINICIAN.NURSE SCHOOL Work Phone: [facility] 03-01-2024 12:58-0400 Body weight 72.4 kg Shana Marquez HOME HEALTH CLINICIAN.NURSE SCHOOL Work Phone: [facility] 03-01-2024 12:58-0400 Diastolic blood pressure 60 mm[Hg] Shana Marquez HOME HEALTH CLINICIAN.NURSE SCHOOL Work Phone: [facility] 03-01-2024 12:58-0400 Heart rate 93 /min Shana Marquez HOME HEALTH CLINICIAN.NURSE SCHOOL Work Phone: [facility] 03-01-2024 12:58-0400 Respiratory rate 18 /min Shana Marquez HOME HEALTH CLINICIAN.NURSE SCHOOL Work Phone: [facility] 03-01-2024 12:58-0400 SaO2% (BldA) [Mass fraction] 97 % Shana Marquez HOME HEALTH CLINICIAN.NURSE SCHOOL Work Phone: [facility] 03-01-2024 12:58-0400 Systolic blood pressure 102 mm[Hg] Shana Marquez HOME HEALTH CLINICIAN.NURSE SCHOOL Work Phone: [facility] 07-13-2023 13:59-0500 Body height 165.[address] Bhavana Rodríguez Work Phone: [facility] 07-13-2023 13:59-0500 Body mass index (BMI) [Ratio] 29.2 kg/m2 Dr. Bhavana Rodríguez Work Phone: [facility] 07-13-2023 13:59-0500 Body weight 79.[address] Bhavana Rodríguez Work Phone: [facility] 07-13-2023 13:59-0500 Diastolic blood pressure 69 mm[Hg] Dr. Bhavana Rodríguez Work Phone: [facility] 07-13-2023 13:59-0500 Heart rate 89 /min Dr. Bhavana Rodríguez Work Phone: [facility] 07-13-2023 13:59-0500 Respiratory rate 16 /min Dr. Bhavana Rodríguez Work Phone: [facility] 07-13-2023 13:59-0500 Systolic blood pressure 98 mm[Hg] Dr. Bhavana Rodríguez Work Phone: [facility] 05-27-2023 08:05-0500 Body mass index (BMI) [Ratio] 30.1 kg/m2 Dr. Bhavana Rodríguez Work Phone: [facility] 05-27-2023 08:05-0500 Body temperature 98.2 [degF] Dr. Bhavana Rodríguez Work Phone: [facility] 05-27-2023 08:05-0500 Body weight 82.[address] Bhavana Rodríguez Work Phone: [facility] 05-27-2023 08:05-0500 Diastolic blood pressure 74 mm[Hg] Dr. Bhavana Rodríguez Work Phone: [facility] 05-27-2023 08:05-0500 Heart rate 77 /min Dr. Bhavana Rodríguez Work Phone: [facility] 05-27-2023 08:05-0500 SaO2% (BldA) [Mass fraction] 96 % Dr. Bhavana Rodríguez Work Phone: [facility] 05-27-2023 08:05-0500 Systolic blood pressure 116 mm[Hg] Dr. Bhavana Rodríguez Work Phone: [facility] 05-13-2023 06:36-0500 Body height 165.[address] Bhavana Rodríguez Work Phone: [facility] 05-13-2023 06:34-0500 Body mass index (BMI) [Ratio] 30.7 kg/m2 Dr. Bhavana Rodríguez Work Phone: [facility] 05-13-2023 06:34-0500 Body temperature 97 [degF] Dr. Bhavana Rodríguez Work Phone: [facility] 05-13-2023 06:34-0500 Body weight 83.[address] Bhavana Rodríguez Work Phone: [facility] 05-13-2023 06:34-0500 Diastolic blood pressure 61 mm[Hg] Dr. Bhavana Rodríguez Work Phone: [facility] 05-13-2023 06:34-0500 Heart rate 67 /min Dr. Bhavana Rodríguez Work Phone: [facility] 05-13-2023 06:34-0500 Respiratory rate 20 /min Dr. Bhavana Rodríguez Work Phone: [facility] 05-13-2023 06:34-0500 SaO2% (BldA) [Mass fraction] 95 % Dr. Bhavana Rodríguez Work Phone: [facility] 05-13-2023 06:34-0500 Systolic blood pressure 104 mm[Hg] Dr. Bhavana Rodríguez Work Phone: [facility] 04-07-2023 08:56-0400 Body height 165.[address] Bhavana Rodríguez Work Phone: [facility] 04-07-2023 08:56-0400 Body weight 90.[address] Bhavana Rodríguez Work Phone: [facility] 03-02-2023 11:18-0400 Diastolic blood pressure 72 mm[Hg] Dr. Bhavana Rodríguez Work Phone: [facility] 03-02-2023 11:18-0400 Heart rate 75 /min Dr. Bhavana Rodríguez Work Phone: [facility] 03-02-2023 11:18-0400 Systolic blood pressure 127 mm[Hg] Dr. Bhavana Rodríguez Work Phone: [facility] 03-02-2023 07:20-0400 Body height 165.[address] Bhavana Rodríguez Work Phone: [facility] 03-02-2023 07:20-0400 Body temperature 98 [degF] Dr. Bhavana Rodríguez Work Phone: [facility] 03-02-2023 07:20-0400 Respiratory rate 20 /min Dr. Bhavana Rodríguez Work Phone: [facility] 03-02-2023 07:20-0400 SaO2% (BldA) [Mass fraction] 100 % Dr. Bhavana Rodríguez Work Phone: [facility] 02-25-2023 08:13-0400 Body height 165.[address] Bhavana Rodríguez Work Phone: [facility] 02-25-2023 08:13-0400 Body mass index (BMI) [Ratio] 32.3 kg/m2 Dr. Bhavana Rodríguez Work Phone: [facility] 02-25-2023 08:13-0400 Body temperature 97.9 [degF] Dr. Bhavana Rodríguez Work Phone: [facility] 02-25-2023 08:13-0400 Body weight 88.[address] Bhavana Rodríguez Work Phone: [facility] 02-25-2023 08:13-0400 Diastolic blood pressure 73 mm[Hg] Dr. Bhavana Rodríguez Work Phone: [facility] 02-25-2023 08:13-0400 Heart rate 89 /min Dr. Bhavana Rodríguez Work Phone: [facility] 02-25-2023 08:13-0400 Respiratory rate 16 /min Dr. Bhavana Rodríguez Work Phone: [facility] 02-25-2023 08:13-0400 SaO2% (BldA) [Mass fraction] 94 % Dr. Bhavana Rodríguez Work Phone: [facility] 02-25-2023 08:13-0400 Systolic blood pressure 107 mm[Hg] Dr. Bhavana Rodríguez Work Phone: [facility] 02-23-2023 13:16-0400 Diastolic blood pressure 71 mm[Hg] Dr. Bhavana Rodríguez Work Phone: [facility] 02-23-2023 13:16-0400 Heart rate 104 /min Dr. Bhavana Rodríguez Work Phone: [facility] 02-23-2023 13:16-0400 Respiratory rate 16 /min Dr. Bhavana Rodríguez Work Phone: [facility] 02-23-2023 13:16-0400 SaO2% (BldA) [Mass fraction] 96 % Dr. Bhavana Rodríguez Work Phone: [facility] 02-23-2023 13:16-0400 Systolic blood pressure 125 mm[Hg] Dr. Bhavana Rodríguez Work Phone: [facility] 02-23-2023 09:54-0400 Body mass index (BMI) [Ratio] 31.6 kg/m2 Dr. Bhavana Rodríguez Work Phone: [facility] 02-23-2023 09:54-0400 Body temperature 97.6 [degF] Dr. Bhavana Rodríguez Work Phone: [facility] 02-23-2023 09:54-0400 Body weight 86.[address] Bhavana Rodríguez Work Phone: [facility] 02-18-2023 09:23-0400 Body mass index (BMI) [Ratio] 31.9 kg/m2 Dr. Bhavana Rodríguez Work Phone: [facility] 02-18-2023 09:23-0400 Body weight 87.[address] Bhavana Rodríguez Work Phone: [facility] 02-18-2023 09:23-0400 Diastolic blood pressure 82 mm[Hg] Dr. Bhavana Rodríguez Work Phone: [facility] 02-18-2023 09:23-0400 Heart rate 84 /min Dr. Bhavana Rodríguez Work Phone: [facility] 02-18-2023 09:23-0400 Respiratory rate 20 /min Dr. Bhavana Rodríguez Work Phone: [facility] 02-18-2023 09:23-0400 Systolic blood pressure 120 mm[Hg] Dr. Bhavana Rodríguez Work Phone: [facility] 02-05-2023 13:00-0400 Diastolic blood pressure 96 mm[Hg] Bhavana Rodríguez Other Phone: [facility] 02-05-2023 13:00-0400 Heart rate 84 /min Bhavana Rodríguez Other Phone: [facility] 02-05-2023 13:00-0400 Respiratory rate 18 /min Bhavana Rodríguez Other Phone: [facility] 02-05-2023 13:00-0400 SaO2% (BldA) [Mass fraction] 99 % Bhavana Rodríguez Other Phone: [facility] 02-05-2023 13:00-0400 Systolic blood pressure 108 mm[Hg] Bhavana Rodríguez Other Phone: [facility] 02-05-2023 11:06-0400 Body height 165.1 cm Bhavana Rodríguez Other Phone: [facility] 02-05-2023 11:06-0400 Body temperature 98.06 [degF] Bhavana Rodríguez Other Phone: [facility] 02-05-2023 11:06-0400 Body weight 85 kg Bhavana Rodríguez Other Phone: [facility] 01-21-2023 05:53-0400 Body mass index (BMI) [Ratio] 31.6 kg/m2 Dr. Bhavana Rodríguez Work Phone: [facility] 01-21-2023 05:53-0400 Body temperature 96.8 [degF] Dr. Bhavana Rodríguez Work Phone: [facility] 01-21-2023 05:53-0400 Body weight 86.[address] Bhavana Rodríguez Work Phone: [facility] 01-21-2023 05:53-0400 Diastolic blood pressure 66 mm[Hg] Dr. Bhavana Rodríguez Work Phone: [facility] 01-21-2023 05:53-0400 Heart rate 88 /min Dr. Bhavana Rodríguez Work Phone: [facility] 01-21-2023 05:53-0400 Respiratory rate 18 /min Dr. Bhavana Rodríguez Work Phone: [facility] 01-21-2023 05:53-0400 SaO2% (BldA) [Mass fraction] 98 % Dr. Bhavana Rodríguez Work Phone: [facility] 01-21-2023 05:53-0400 Systolic blood pressure 96 mm[Hg] Dr. Bhavana Rodríguez Work Phone: [facility] 08-24-2022 09:40-0400 Body height 165.[address] Bhavana Rodríguez Work Phone: [facility] 08-24-2022 09:40-0400 Body mass index (BMI) [Ratio] 31.8 kg/m2 Dr. Bhavana Rodríguez Work Phone: [facility] 08-24-2022 09:40-0400 Body temperature 98.2 [degF] Dr. Bhavana Rodríguez Work Phone: [facility] 08-24-2022 09:40-0400 Body weight 86.[address] Bhavana Rodríguez Work Phone: [facility] 08-24-2022 09:40-0400 Diastolic blood pressure 81 mm[Hg] Dr. Bhavana Rodríguez Work Phone: [facility] 08-24-2022 09:40-0400 Heart rate 95 /min Dr. Bhavana Rodríguez Work Phone: [facility] 08-24-2022 09:40-0400 Respiratory rate 17 /min Dr. Bhavana Rodríguez Work Phone: [facility] 08-24-2022 09:40-0400 SaO2% (BldA) [Mass fraction] 95 % Dr. Bhavana Rodríguez Work Phone: [facility] 08-24-2022 09:40-0400 Systolic blood pressure 116 mm[Hg] Dr. Bhavana Rodríguez Work Phone: [facility] 08-20-2022 13:00-0500 Heart rate 79 /min Dr. Bhavana Rodríguez Work Phone: [facility] 08-20-2022 13:00-0500 Respiratory rate 20 /min Dr. Bhavana Rodríguez Work Phone: [facility] 08-20-2022 08:30-0500 Body temperature 98.4 [degF] Dr. Bhavana Rodríguez Work Phone: [facility] 08-20-2022 08:30-0500 Diastolic blood pressure 54 mm[Hg] Dr. Bhavana Rodríguez Work Phone: [facility] 08-20-2022 08:30-0500 Heart rate 72 /min Dr. Bhavana Rodríguez Work Phone: [facility] 08-20-2022 08:30-0500 Respiratory rate 16 /min Dr. Bhavana Rodríguez Work Phone: [facility] 08-20-2022 08:30-0500 SaO2% (BldA) [Mass fraction] 96 % Dr. Bhavana Rodríguez Work Phone: [facility] 08-20-2022 08:30-0500 Systolic blood pressure 102 mm[Hg] Dr. Bhavana Rodríguez Work Phone: [facility] 08-19-2022 13:36-0500 Body height 165.[address] Bhavana Rodríguez Work Phone: [facility] 08-19-2022 13:36-0500 Body weight 89.[address] Bhavana Rodríguez Work Phone: [facility] 08-18-2022 15:08-0500 Body mass index (BMI) [Ratio] 32.7 kg/m2 Dr. Bhavana Rodríguez Work Phone: [facility] 08-18-2022 12:58-0500 Body temperature 97.5 [degF] Dr. Bhavana Rodríguez Work Phone: [facility] 08-18-2022 12:58-0500 Diastolic blood pressure 81 mm[Hg] Dr. Bhavana Rodríguez Work Phone: [facility] 08-18-2022 12:58-0500 Heart rate 92 /min Dr. Bhavana Rodríguez Work Phone: [facility] 08-18-2022 12:58-0500 Respiratory rate 34 /min Dr. Bhavana Rodríguez Work Phone: [facility] 08-18-2022 12:58-0500 SaO2% (BldA) [Mass fraction] 98 % Dr. Bhavana Rodríguez Work Phone: [facility] 08-18-2022 12:58-0500 Systolic blood pressure 102 mm[Hg] Dr. Bhavana Rodríguez Work Phone: [facility] 08-18-2022 10:23-0500 Body mass index (BMI) [Ratio] 34.4 kg/m2 Dr. Bhavana Rodríguez Work Phone: [facility] 08-18-2022 10:23-0500 Body weight 94.[address] Bhavana Rodríguez Work Phone: [facility] 08-18-2022 10:13-0500 Body height 165.[address] Bhavana Rodríguez Work Phone: [facility] 08-18-2022 08:01-0500 Body mass index (BMI) [Ratio] 32.4 kg/m2 Dr. Bhavana Rodríguez Work Phone: [facility] 08-18-2022 08:01-0500 Body temperature 98.3 [degF] Dr. Bhavana Rodríguez Work Phone: [facility] 08-18-2022 08:01-0500 Body weight 88.[address] Bhavana Rodríguez Work Phone: [facility] 08-18-2022 08:01-0500 Diastolic blood pressure 70 mm[Hg] Dr. Bhavana Rordíguez Work Phone: [facility] 08-18-2022 08:01-0500 Heart rate 83 /min Dr. Bhavana Rodríguez Work Phone: [facility] 08-18-2022 08:01-0500 Respiratory rate 18 /min Dr. Bhavana Rodríguez Work Phone: [facility] 08-18-2022 08:01-0500 SaO2% (BldA) [Mass fraction] 93 % Dr. Bhavana Rodríguez Work Phone: [facility] 08-18-2022 08:01-0500 Systolic blood pressure 115 mm[Hg] Dr. Bhavana Rodríguez Work Phone: [facility] 07-28-2022 06:53-0500 Body mass index (BMI) [Ratio] 33.1 kg/m2 Dr. Bhavana Rodríguez Work Phone: [facility] 07-28-2022 06:53-0500 Body temperature 95.1 [degF] Dr. Bhavana Rodríguez Work Phone: [facility] 07-28-2022 06:53-0500 Body weight 90.[address] Bhavana Rodríguez Work Phone: [facility] 07-28-2022 06:53-0500 Diastolic blood pressure 65 mm[Hg] Dr. Bhavana Rodríguez Work Phone: [facility] 07-28-2022 06:53-0500 Heart rate 78 /min Dr. Bhavana Rodríguez Work Phone: [facility] 07-28-2022 06:53-0500 Respiratory rate 18 /min Dr. Bhavana Rodríguez Work Phone: [facility] 07-28-2022 06:53-0500 SaO2% (BldA) [Mass fraction] 98 % Dr. Bhavana Rodríguez Work Phone: [facility] 07-28-2022 06:53-0500 Systolic blood pressure 104 mm[Hg] Dr. Bhavana Rodríguez Work Phone: [facility] 06-04-2022 14:32-0500 Body temperature 97.4 [degF] Dr. Bhavana Rodríguez Work Phone: [facility] 06-04-2022 14:32-0500 Body weight 93.[address] Bhavana Rodríguez Work Phone: [facility] 06-04-2022 14:32-0500 Diastolic blood pressure 73 mm[Hg] Dr. Bhavana Rodríguez Work Phone: [facility] 06-04-2022 14:32-0500 Heart rate 110 /min Dr. Bhavana Rodríguez Work Phone: [facility] 06-04-2022 14:32-0500 Respiratory rate 16 /min Dr. Bhavana Rodríguez Work Phone: [facility] 06-04-2022 14:32-0500 SaO2% (BldA) [Mass fraction] 95 % Dr. Bhavana Rodríguez Work Phone: [facility] 06-04-2022 14:32-0500 Systolic blood pressure 118 mm[Hg] Dr. Bhavana Rodríguez Work Phone: [facility] 04-29-2022 13:05-0500 SaO2% (BldA) [Mass fraction] 93 % Dr. Bhavana Rodríguez Work Phone: [facility] 04-29-2022 11:02-0500 Body mass index (BMI) [Ratio] 32.9 kg/m2 Dr. Bhavana Rodríguez Work Phone: [facility] 04-29-2022 11:02-0500 Body temperature 98.8 [degF] Dr. Bhavana Rodríguez Work Phone: [facility] 04-29-2022 11:02-0500 Body weight 89.[address] Bhavana Rodríguez Work Phone: [facility] 04-29-2022 11:02-0500 Diastolic blood pressure 79 mm[Hg] Dr. Bhavana Rodríguez Work Phone: [facility] 04-29-2022 11:02-0500 Heart rate 113 /min Dr. Bhavana Rodríguez Work Phone: [facility] 04-29-2022 11:02-0500 Respiratory rate 24 /min Dr. Bhavana Rodríguez Work Phone: [facility] 04-29-2022 11:02-0500 Systolic blood pressure 121 mm[Hg] Dr. Bhavana Rodríguez Work Phone: [facility] 04-29-2022 10:25-0500 Body temperature 100.2 [degF] Bibianasharon Munizhof [employer] Work Phone: [facility] 04-29-2022 10:25-0500 Diastolic blood pressure 80 mm[Hg] Bibiana Munizhof HOME HEALTH [employer] Work Phone: [facility] 04-29-2022 10:25-0500 Heart rate 134 /min Bibiana Munizhof HOME HEALTH [employer] Work Phone: [facility] 04-29-2022 10:25-0500 Respiratory rate 28 /min Bibiana Munizhof HOME HEALTH [employer] Work Phone: [facility] 04-29-2022 10:25-0500 SaO2% (BldA) [Mass fraction] 98 % Bibiana Tannhof HOME HEALTH [employer] Work Phone: [facility] 04-29-2022 10:25-0500 Systolic blood pressure 120 mm[Hg] Bibiana Tannhof HOME HEALTH [employer] Work Phone: [facility] 04-27-2022 14:39-0500 Diastolic blood pressure 57 mm[Hg] [facility] 04-27-2022 14:39-0500 Heart rate 90 /min [facility] 04-27-2022 14:39-0500 Respiratory rate 14 /min [facility] 04-27-2022 14:39-0500 SaO2% (BldA) [Mass fraction] 97 % [facility] 04-27-2022 14:39-0500 Systolic blood pressure 118 mm[Hg] [facility] 04-27-2022 10:24-0500 Body height 165.1 cm [facility] Work Phone: 04-27-2022 10:24-0500 Body mass index (BMI) [Ratio] 33.3 kg/m2 [facility] 04-27-2022 10:24-0500 Body temperature 98.9 [degF] [facility] 04-27-2022 10:24-0500 Body weight 90.71 kg [facility] 04-23-2022 19:32-0500 Heart rate 87 /min [facility] 04-23-2022 19:32-0500 Respiratory rate 14 /min [facility] 04-23-2022 18:58-0500 Body height 162.56 cm [facility] Work Phone: 04-23-2022 18:58-0500 Body mass index (BMI) [Ratio] 34.3 kg/m2 [facility] 04-23-2022 18:58-0500 Body temperature 97.6 [degF] [facility] 04-23-2022 18:58-0500 Body weight 90.71 kg [facility] 04-23-2022 18:58-0500 Diastolic blood pressure 70 mm[Hg] [facility] 04-23-2022 18:58-0500 SaO2% (BldA) [Mass fraction] 99 % [facility] 04-23-2022 18:58-0500 Systolic blood pressure 118 mm[Hg] [facility] 04-20-2022 11:18-0500 Body height 162.6 cm HALIE PHILIP MD [facility] 04-20-2022 11:18-0500 Body temperature 98.42 [degF] HALIE PHILIP MD [facility] 04-20-2022 11:18-0500 Body weight 90.9 kg HALIE PHILIP MD [facility] 04-20-2022 11:18-0500 Diastolic blood pressure 76 mm[Hg] HALIE PHILIP MD [facility] 04-20-2022 11:18-0500 Heart rate 81 /min HALIE PHILIP MD [facility] 04-20-2022 11:18-0500 Respiratory rate 24 /min HALIE PHILIP MD [facility] 04-20-2022 11:18-0500 Systolic blood pressure 139 mm[Hg] HALIE PHILIP MD [facility] 03-08-2022 21:43-0400 Body temperature 97.8 [degF] [facility] Work Phone: 03-08-2022 21:43-0400 Diastolic blood pressure 85 mm[Hg] [facility] Work Phone: 03-08-2022 21:43-0400 Heart rate 84 /min [facility] Work Phone: 03-08-2022 21:43-0400 Respiratory rate 16 /min [facility] Work Phone: 03-08-2022 21:43-0400 SaO2% (BldA) [Mass fraction] 98 % [facility] Work Phone: 03-08-2022 21:43-0400 Systolic blood pressure 140 mm[Hg] [facility] Work Phone: 03-08-2022 21:41-0400 Body height 162.56 cm [facility] Work Phone: 03-08-2022 21:41-0400 Body mass index (BMI) [Ratio] 34.5 kg/m2 [facility] Work Phone: 03-08-2022 21:41-0400 Body weight 91.4 kg [facility] Work Phone: 01-06-2022 14:58-0400 Body height 162.[address] Yanira Lyons Work Phone: [facility] Work Phone: 01-06-2022 14:58-0400 Body mass index (BMI) [Ratio] 33.7 kg/m2 Dr. Yanira Lyons Work Phone: [facility] Work Phone: 01-06-2022 14:58-0400 Body temperature 97.8 [degF] Dr. Yanira Lyons Work Phone: [facility] Work Phone: 01-06-2022 14:58-0400 Body weight 89.[address] Yanira Lyons Work Phone: [facility] Work Phone: 01-06-2022 14:58-0400 Diastolic blood pressure 96 mm[Hg] Dr. Yanira Lyons Work Phone: [facility] Work Phone: 01-06-2022 14:58-0400 Heart rate 83 /min Dr. Yanira Lyons Work Phone: [facility] Work Phone: 01-06-2022 14:58-0400 Respiratory rate 16 /min Dr. Yanira Lyons Work Phone: [facility] Work Phone: 01-06-2022 14:58-0400 SaO2% (BldA) [Mass fraction] 98 % Dr. Yanira Lyons Work Phone: [facility] Work Phone: 01-06-2022 14:58-0400 Systolic blood pressure 114 mm[Hg] Dr. Yanira Lyons Work Phone: [facility] Work Phone: 01-05-2022 14:15-0400 Diastolic blood pressure 60 mm[Hg] Dr. Yanira Lyons Work Phone: [facility] Work Phone: 01-05-2022 14:15-0400 Heart rate 69 /min Dr. Yanira Lyons Work Phone: [facility] Work Phone: 01-05-2022 14:15-0400 Respiratory rate 20 /min Dr. Yanira Lyons Work Phone: [facility] Work Phone: 01-05-2022 14:15-0400 SaO2% (BldA) [Mass fraction] 100 % Dr. Yanira Lyons Work Phone: [facility] Work Phone: 01-05-2022 14:15-0400 Systolic blood pressure 112 mm[Hg] Dr. Yanira Lyons Work Phone: [facility] Work Phone: 01-05-2022 13:05-0400 Body temperature 96.8 [degF] Dr. Yanira Lyons Work Phone: [facility] Work Phone: 01-05-2022 12:24-0400 Body mass index (BMI) [Ratio] 33.7 kg/m2 Dr. Yanira Lyons Work Phone: [facility] Work Phone: 01-05-2022 12:24-0400 Body weight 89.[address] Yanira Lyons Work Phone: [facility] Work Phone: 10-31-2021 15:18-0400 Body height 162.[address] Yanira Lyons Work Phone: [facility] Work Phone: 10-31-2021 15:18-0400 Body mass index (BMI) [Ratio] 34.3 kg/m2 Dr. Yanira Lyons Work Phone: [facility] Work Phone: 10-31-2021 15:18-0400 Body temperature 97.8 [degF] Dr. Yanira Lyons Work Phone: [facility] Work Phone: 10-31-2021 15:18-0400 Body weight 90.[address] Yanira Lyons Work Phone: [facility] Work Phone: 10-31-2021 15:18-0400 Diastolic blood pressure 80 mm[Hg] Dr. Yanira Lyons Work Phone: [facility] Work Phone: 10-31-2021 15:18-0400 Heart rate 104 /min Dr. Yanira Lyons Work Phone: [facility] Work Phone: 10-31-2021 15:18-0400 Respiratory rate 14 /min Dr. Yanira Lyons Work Phone: [facility] Work Phone: 10-31-2021 15:18-0400 SaO2% (BldA) [Mass fraction] 97 % Dr. Yanira Lyons Work Phone: [facility] Work Phone: 10-31-2021 15:18-0400 Systolic blood pressure 124 mm[Hg] Dr. Yanira Lyons Work Phone: [facility] Work Phone: 10-29-2021 14:45-0400 Diastolic blood pressure 39 mm[Hg] Dr. Yanira Lyons Work Phone: [facility] Work Phone: 10-29-2021 14:45-0400 Heart rate 75 /min Dr. Yanira yLons Work Phone: [facility] Work Phone: 10-29-2021 14:45-0400 Respiratory rate 18 /min Dr. Yanira Lyons Work Phone: [facility] Work Phone: 10-29-2021 14:45-0400 SaO2% (BldA) [Mass fraction] 100 % Dr. Yanira Lyons Work Phone: [facility] Work Phone: 10-29-2021 14:45-0400 Systolic blood pressure 106 mm[Hg] Dr. Yanira Lyons Work Phone: [facility] Work Phone: 10-29-2021 12:41-0400 Body mass index (BMI) [Ratio] 32.5 kg/m2 Dr. Yanira Lyons Work Phone: [facility] Work Phone: 10-29-2021 12:41-0400 Body temperature 98.7 [degF] Dr. Yanira Lyons Work Phone: [facility] Work Phone: 10-29-2021 12:41-0400 Body weight 86.[address] Yanira Lyons Work Phone: [facility] Work Phone: 10-03-2021 08:39-0400 Body mass index (BMI) [Ratio] 33.6 kg/m2 Dr. Yanira Lyons Work Phone: [facility] Work Phone: 10-03-2021 08:39-0400 Body weight 88.[address] Yanira Lyons Work Phone: [facility] Work Phone: 10-03-2021 08:39-0400 Body mass index (BMI) [Ratio] 33.6 kg/m2 Dr. Yanira Lyons Work Phone: [facility] Work Phone: 10-03-2021 08:39-0400 Body weight 88.[address]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 08-24-[address] Bhavana Rodríguez Work Phone: [facility] Start: 08-20-2022 End: 08-20-[address] Bhavana Rodríguez Work Phone: [facility]-Sleep Lab Start: 08-20-2022 Non-patient / Non-visit Dr. Eunice Rodríguez Work Phone: [facility] Inpatient Physicians Start: 08-19-2022 Non-patient / Non-visit Dr. Eunice Rodríguez Work Phone: [facility] Start: 08-18-2022 End: 08-20-2022 Evaluation and management of inpatient Dr. Bhavana Rdoríguez Work Phone: [facility]-Medical Surgical 3 Start: 08-18-2022 End: 08-20-[address] Bhavana Rodríguez Work Phone: [facility] Work Phone: Start: 08-18-2022 Non-patient / Non-visit Dr. Eunice Rodríguez Work Phone: [facility]PMW Start: 08-18-2022 End: 08-18-[address] Bhavana Rodríguez Work Phone: [facility] Work Phone: Start: 08-18-2022 End: 08-18-[address] Bhavana Rodríguez [facility] Start: 07-29-2022 Orders Only Dagoberto fisher MD Work Phone: Cardiology Comment on above: Pleurodynia (Primary Dx) Start: 07-28-2022 End: 07-28-[address] Bhavana Rodríguez [facility] Start: 07-22-2022 End: 07-22-[address] Bhavana Rodríguez Work Phone: [facility]-Radiology, [facility] Start: 07-17-2022 Refill Dagoberto fisher MD Work Phone: Cardiology Comment on above: Refill Request Start: 06-11-2022 Follow-up encounter Dagoberto hand MD Work Phone: [facility] Start: 06-11-2022 ICD Remote F/U Dagoberto fisher MD Work Phone: [facility] Department Start: 06-04-[address] Rohit Rodríguez Work Phone: [facility] Start: 06-04-2022 End: 06-04-2022 Encounter for general adult medical examination without abnormal findings Dr. Bhavana Rodríguez Work Phone: [facility] Start: 06-04-2022 End: 06-04-[address] Bhavana Rodríguez Work Phone: [facility] Start: 04-29-2022 End: 04-29-2022 Emergency department patient visit Dr. Bhavana Rodríguez Work Phone: [facility]-Emergency Department Start: 04-29-2022 End: 04-29-2022 Patient encounter procedure Bibiana Field APRN.CNP Work Phone: [facility] [place] Comment on above: SOB (shortness of br eath) (Primary Dx) Start: 04-28-2022 ambulatory Dagoberto fisher MD Work Phone: Cardiology Comment on above: Oxygen low Start: 04-27-2022 End: 04-27-2022 Emergency department patient visit [facility]-Emergency Department Start: 04-23-2022 End: 04-23-2022 Emergency department patient visit [facility]-Emergency Department Start: 04-20-2022 End: 04-20-2022 Emergency department patient visit DR. YANIRA LYONS MD. Facility:B Start: 04-20-2022 End: 04-20-2022 Emergency department patient visit HALIE PHILIP MD [facility] Start: 04-17-2022 Orders Only Darlene Hernandez Charlie puente PA-C Work Phone: Pulmonary Medicine Comment on above: Moderate persistent asthma with acute exacerbation (Primary Dx) results Start: 04-16-2022 Refill Mckenna Baeza MD Work Phone: Pulmonary Medicine Comment on above: Refill Request Start: 03-19-2022 Refill Mckenna Baeza MD Work Phone: Pulmonary Medicine Comment on above: Refill Request Start: 03-08-2022 End: 03-08-2022 [facility] Start: 01-07-2022 Chart abstracting Yanira grant MD Work Phone: [facility] Comment on above: external documents ( [facility] ER) Start: 01-06-2022 End: 01-06-2022 Emergency department patient visit Dr. Yanira Lyons [facility] Phone[facility] Start: 01-05-2022 End: 01-05-[address] Yanira Lyons Work Phone: [facility]-Radiology, [facility] Start: 11-30-2021 ambulatory Mckenna Baeza MD Work Phone: Pulmonary Medicine Comment on above: Albuteral inhaler Start: 11-17-2021 Refill Bibiana Field APRN.CNP Work Phone: [facility] Comment on above: Refill Request Start: 11-03-2021 End: 11-03-[address] Yanira Lyons Work Phone: [facility] Start: 10-31-2021 End: 10-31-2021 Emergency department patient visit Dr. Yanira Lyons Work Phone: [facility]-Emergency Department Start: 10-29-2021 End: 10-29-[address] Yanira Lyons Work Phone: [facility]-Radiology, [facility] Start: 10-04-2021 Refill Shan BAUTISTA RN.NURSE SCHOOL, DNP Work Phone: [facility] [place] Comment on above: Refill Request Start: 10-03-2021 End: 10-03-[address] Yanira Lyons Work Phone: [facility] Start: 10-02-2021 End: 10-02-2021 Patient encounter procedure Mckenna Baeza MD Work Phone: Pulmonary Medicine Comment on above: Cough variant asthma (Primary Dx); COVID-19 long hauler; Gastroesophageal reflux disease, unspecified whether esophagitis present Start: 09-26-2021 End: 09-26-[address] [facility] Lyons [facility] Start: 09-25-2021 End: 09-25-[address] Yanira Lyons [facility] Start: 09-25-[address] Yanira Lyons [facility] Phone[facility] Start: 09-22-2021 End: 09-22-2021 Emergency department patient visit DR. YANIRA LYONS MD. Facility:[facility] Start: 09-22-2021 End: 09-22-2021 Emergency department patient visit TAMY CALERO MD [facility] Start: 09-17-2021 Orders Only Mckenna Baeza MD Work Phone: Pulmonary Medicine Start: 09-15-2021 Follow-up encounter Dagoberto hand MD Work Phone: [facility] Start: 09-15-2021 Patient encounter procedure Dagoberto Durham MD Work Phone: [facility] Department Start: 09-14-2021 End: 09-14-[address] Yanira Lyons Work Phone: [facility] Start: 09-09-2021 Follow-up encounter Dagoberto hand MD Work Phone: [facility] Start: 09-09-2021 ICD Remote F/U Dagoberto fisher MD Work Phone: [facility] Department Start: 09-09-2021 Refill Dagoberto fisher MD Work Phone: Cardiology Comment on above: Refill Request Start: 09-02-2021 Refill Shan BAUTISTA RN.NURSE [employer]CHO[employer], DNP Work Phone: [facility] Comment on above: Refill Request Start: 08-29-2021 End: 08-29-[address] Yanira Lyons Work Phone: [facility] Start: 08-25-2021 End: 08-25-[address] Yanira Lyons Work Phone: [facility] Start: 08-19-2021 Non-patient / Non-visit Dr. Nica Lyons Work Phone: [facility] Start: 08-19-2021 End: 08-19-[address] Yanira Lyons Work Phone: [facility]-Pulmonary Services/Neurology Start: 08-18-2021 End: 08-18-[address] Yanira Lyons Work Phone: [facility] Start: 08-15-2021 End: 08-15-2021 Emergency department patient visit Dr. Yanira Lyons [facility] Phone[facility] Start: 08-13-2021 End: 08-13-2021 Subsequent hospital visit by physician [facility] Work Phone: Radiology Comment on above: Hand injuries, left, initial encounter [S69.92XA] Start: 08-05-2021 End: 08-05-[address] Yanira Lyons Work Phone: [facility]-Pulmonary Services/Neurology Start: 07-22-2021 End: 07-22-2021 Subsequent hospital visit by physician [facility] Work Phone: Radiology Comment on above: Fall, initial encoun ter [W19.XXXA] Start: 07-07-2021 End: 07-07-2021 Emergency department patient visit Dr. Yanira Lyons Work Phone: [facility]-Emergency Department Start: 07-01-2021 End: 07-01-2021 Subsequent hospital visit by physician [facility] Work Phone: Radiology Comment on above: Suspected COVID-19 v irus infection [Z20.822] Start: 05-20-2021 End: 05-20-2021 Emergency department patient visit AQUILES PETTIT Facility:B Start: 05-20-2021 End: 05-20-2021 [facility] Start: 05-11-2021 End: 05-11-2021 Emergency department patient visit DR. YANIRA LYONS MD. Facility:B Start: 05-11-2021 End: 05-11-2021 Emergency department patient visit HALIE PHILIP MD [facility] Start: 04-11-2021 End: 04-11-2021 Emergency department patient visit HALIE PHILIP MD [facility] Start: 03-22-2021 End: 03-22-2021 [facility]: [facility] Comment on above: Irritable bowel synd rachel with constipation [K58.1] Start: 03-29-2020 End: 03-29-2020 Subsequent hospital visit by physician Eduardo [facility] Work Phone: Radiology Comment on above: Cough [R05] Start: 06-15-2017 Ambulatory YOANNA GALLEGOS Facility :[facility] Start: 07-10-2010 End: 07-17-2010 Patient encounter status Dagoberto Durham MD Work Phone: [facility] Procedures Date Procedure Procedure Detail Performing Clinician Start: 12-07-2024 Vitamin D, 25-hydrox y measurement Dr. Bhavana Rodríguez MD Work Phone: Comment on above: Vitamin D StatusDefi ciency: <20 ng/mL (50nmol/L)Insufficiency: 20-30 ng/mL (50-75 nmol/L)Sufficiency: 30-100 ng/mL (75-250 nmol/L)Toxicity: >100 ng/mL (>250 nmol/L) Start: 11-13-2024 Plain X-ray of tibia and fibula Dr. Bhavana Rodríguez MD Work Phone: Start: 10-30-2024 Radiologic exam knee complete 4/more views Charanjit Coker APRN.CNP Work Phone: Start: 10-20-[address] Faina Rodríguez MD Work Phone: Comment on above: Performed at: [address] [id number] Director: Edwardo Kohler PhD, Phone: [phone] Start: 10-20-2024 Antibody to centrome re measurement Dr. Bhavana Rodríguez MD Work Phone: Comment on above: Test not performed Start: 10-20-2024 Antibody to extracta ble nuclear antigen measurement Dr. Bhavana Rodríguez MD Work Phone: Comment on above: Test not performed Start: 10-20-2024 Antibody to AIMEE-[address] Bhavana Rodríguez MD Work Phone: Comment on above: Test not performed Start: 10-20-2024 Antibody to lupus La protein measurement Dr. Bhavana Rodríguez MD Work Phone: Comment on above: Test not performed Start: 10-20-2024 Antibody to SS-A measurement Dr. Bhavana Rodríguez MD Work Phone: Comment on above: Test not performed Start: 10-20-[address] Bhavana Rodríguez MD Work Phone: Comment on above: Test not performed Start: 10-20-2024 FIELD TALENT QUALIFICATION SPECIALIST antibody measurement Dr. Bhavana Rodríguez MD Work Phone: Comment on above: Test not performed Start: 09-27-2024 CT of chest without contrast Dr. Bhavana Rodríguez MD Work Phone: Start: 08-11-2024 Radiologic exam ches t 2 views Brittany Florian HOME HEALTH CLINICIAN.NURSE SCHOOL Work Phone: Start: 07-31-2024 Measurement of renal function Dr. Bhavana Rodríguez MD Work Phone: Comment on above: GFR Calc Start: 07-12-2024 Radex hand minimum 3 views Charanjit Coker HOME HEALTH CLINICIAN.NURSE [employer]CHOOL Work Phone: Start: 03-18-2024 Urnls dip stick/tabl et rgnt auto w/o microscopy Crystal Ashford HOME HEALTH CLINICIAN.NURSE [employer]CHO[employer] Work Phone: Start: 03-10-2024 Radiologic exam ches t 2 views Charanjit Coker HOME HEALTH CLINICIAN.NURSE [employer] Work Phone: Start: 04-12-2023 Computed tomography of abdomen and pelvis with contrast Dr. Bhavana Rodríguez Work Phone: Start: 04-06-2023 ICD REMOTE CHECK Dagoberto Durham MD Work Phone: Start: 03-31-[address] Bhavana Rodríguez Work Phone: Start: 03-29-2023 Cardiovascular stres s test using pharmacologic stress agent Dr. Bhavana Rodríguez Work Phone: Start: 03-02-2023 Plain chest X-ray Dr. Rohit Rodríguez Work Phone: Start: 02-23-2023 SARS-CoV-2 & FLU Ant igen (Rapid) Dr. Bhavana Rodríguez Work Phone: Start: 02-23-2023 CT of head without contrast Dr. Bhavana Rodríguez Work Phone: Start: 12-29-2022 ICD REMOTE CHECK Dagoberto Durham MD Work Phone: Start: 09-10-2022 ICD REMOTE CHECK Dagoberto Durham MD Work Phone: Start: 09-04-[address] Eunice Rodríguez Work Phone: Start: 08-18-2022 Plain chest X-ray Dr. Rohit Rodríguez Work Phone: Start: 07-22-2022 X-ray of lumbar spin e, two or three views Dr. Bhavana Rodríguez Work Phone: Start: 06-11-2022 ICD REMOTE CHECK Dagoberto Durham MD Work Phone: Start: 04-29-2022 Plain chest X-ray Dr. Rohit Rodríguez Work Phone: Start: 04-27-2022 CT of chest without contrast Start: 04-27-2022 Plain chest X-ray Start: 04-23-2022 Plain chest X-ray Start: 01-05-2022 Computerized axial tomography of lumbar spine with contrast Dr. Yanira Lyons Work Phone: Start: 01-05-[address] Yanira callahan Work Phone: Start: 10-29-[address] Yanira callahan Work Phone: Start: 10-29-2021 Computerized axial tomography of lumbar spine with contrast Dr. Yanira Lyons Work Phone: Start: 09-15-2021 ICD CLINIC CHECK Dagoberto Durham MD Work Phone: Start: 09-09-2021 ICD REMOTE CHECK Dagoberto Durham MD Work Phone: Start: 08-25-2021 X-ray of lumbosacral spine Dr. Yanira Lyons Work Phone: Start: 08-15-2021 Plain x-ray of pelvi s and lower extremity Dr. Yanira Lyons Work Phone: Start: 08-15-2021 Radiologic examinati on of knee Dr. Yanira Lyons Work Phone: Start: 08-13-2021 Radex hand minimum 3 views Charanjit Coker HOME HEALTH CLINICIAN.NURSE [employer]CHOOL Work Phone: Start: 07-22-2021 Radex hip unilateral with pelvis 2-3 views Crystal Ashford HOME HEALTH CLINICIAN.NURSE [employer]CHOOL Work Phone: Start: 07-22-2021 Mammography Monisha albertsfernanda ALUMINUM SIDING APPLICATOR Work Phone: Start: 07-07-2021 CT angiography of ch est with contrast Dr. Yanira Lyons Work Phone: Start: 07-01-2021 Radiologic exam ches t 2 views Milli Hobbs PA-C Work Phone: Start: 03-22-2021 Radiologic exam abdo men 1 view Natasha Gomez PA-C Work Phone: Start: 11-09-2020 Lipid 1996 panel - S james or Plasma Dagoberto Durham MD Work Phone: Start: 11-01-2020 Mammography Shan carlos HOME HEALTH CLINICIAN.NURSE [employer]CHO[employer], DNP Work Phone: Start: 10-28-2020 Adult depression scr eening assessment Shan Lazo HOME HEALTH CLINICIAN.NURSE [employer]CHO[employer], DNP Work Phone: Start: 03-29-2020 Radiologic exam ches t 2 views Brittany Florian HOME HEALTH CLINICIAN.NURSE [employer]CHOOL Work Phone: Start: 03-11-2020 Colonoscopy Shan carlos HOME HEALTH CLINICIAN.NURSE [employer]CHO[employer], DNP Work Phone: SARS-CoV-2 & FLU Ant igen (Rapid) Dr. Bhavana Rodríguez Work Phone: Plan of Treatment Date Care Activity Detail Author Start: 10-30-2034 Urine microalbumin profile DTa P,Tdap,Td Vaccine (3 - Td or Tdap) [facility] Start: 03-11-2030 Screening for malign ant neoplasm of colon [facility] Start: 11-12-2025 HPV TESTING HPV TESTING [facility] Start: 11-12-2025 PAP TESTING PAP TESTING [facility] Start: 11-12-2025 Screening for malign ant neoplasm of cervix [facility] Start: 11-09-2025 Lipid 1996 panel - S jaems or Plasma Lipid Screening [facility] Start: 11-09-2025 Lipid panel Lipid Screening [facility] Start: 11-09-2025 LIPID SCREEN LIPID SCREEN [facility] Start: 02-12-2025 Influenza vaccination Influenz a Vaccine (Season Ended) [facility] Start: 12-21-2024 MG Breast - bilatera l Screening [facility] Start: 08-25-2024 Patient referral [facility] Work Phone: Start: 07-20-2024 End: 07-20-2024 Patient encounter procedure 07/20/2024 4:00 PM EST Consult [facility] [id number] [place] [address] Monisha Frankel, MICHAEL [address] [place], [place] [id number] Degeneration of intervertebral disc of lumbar region, unspecified whether pain present (Primary Dx); Pre-op exam [facility] Comment on above: Degeneration of inte rvertebral disc of lumbar region, unspecified whether pain present (Primary Dx); Pre-op exam Start: 07-19-2024 End: 07-19-2025 CBC W Auto Differential panel - Blood CBC and differential Lab Routine Pre-op exam Expected: 07/19/2024 (Approximate), Expires: 07/19/2025 [facility] Comment on above: Expected: 07/19/2024 (Approximate), Expires: 07/19/2025 Start: 07-19-2024 End: 07-19-2025 Comprehensive metabolic 2000 panel - Serum or Plasma Comprehensive metabolic panel Lab Routine Pre-op exam Expected: 07/19/2024 (Approximate), Expires: 07/19/2025 [facility] Comment on above: Expected: 07/19/2024 (Approximate), Expires: 07/19/2025 Start: 07-19-2024 End: 07-19-2025 ECG 12 lead ECG 12 lead ECG Routine Pre-op exam Expected: 07/19/2024 (Approximate), Expires: 07/19/2025 [facility] Work Phone: Comment on above: Expected: 07/19/2024 (Approximate), Expires: 07/19/2025 Start: 03-04-2024 DIABETES SCREEN DIABETES SCREEN [facility] Start: 03-04-2024 Diabetes Screening Diabetes Screenin g [facility] Start: 02-13-2024 Covid-19 Vaccine () Covid-19 Vaccine () [facility] Start: 02-13-2024 Covid-19 Vaccine () Covid-19 Vaccine () [facility] Start: 02-13-2024 Influenza vaccination [facility] Start: 06-14-2023 Behavioral Health Screening Behavioral Health Screening [facility] Start: 06-14-2023 Depression Assessment Depression Ass essment [facility] Start: 04-29-2023 ANNUAL PCP TEAM RAYON TESTER GENTRY DISEASE VISIT ANNUAL PCP TEAM CHRONIC DISEASE VISIT [facility] Start: 04-07-2023 Patient discharge [facility] Start: 03-02-2023 [facility] Start: 02-23-2023 [facility] Start: 02-12-2023 Covid-19 Vaccine ( season) Covid-19 Vaccine () [facility] Start: 02-12-2023 Influenza vaccination [facility] Start: 01-21-2023 Patient referral [facility] Work Phone: Start: 08-20-2022 Patient discharge [facility] Start: 08-19-2022 Incentive spirometry [facility] Start: 08-19-2022 [facility] Start: 08-18-2022 Assessment of risk o f venous thromboembolism [facility] Start: 08-18-2022 Inhalation therapy procedure [facility] Start: 08-18-2022 Insertion of cathete r into peripheral vein [facility] Start: 08-18-2022 Oxygen therapy [facility] Start: 08-18-2022 Providing care accor ding to standard [facility] Start: 08-18-2022 Provision of activit y privileges [facility] Start: 08-18-2022 Referral to occupati onal therapist [facility] Start: 08-18-2022 Referral to service [facility] Start: 08-18-2022 [facility] Start: 08-18-2022 Following clinical p athway protocol [facility] Start: 08-18-2022 ANNUAL PCP TEAM RAYON TESTER GENTRY DISEASE VISIT ANNUAL PCP TEAM CHRONIC DISEASE VISIT [facility] Start: 08-18-2022 Emergency dept visit high severity&threat funcj EMERGENCY DEPT VISIT HI MDM [facility] Start: 08-18-2022 Verification routine [facility] Start: 08-18-2022 Admission procedure [facility] Start: 08-18-2022 Patient referral to dietitian [facility] Start: 07-29-2022 End: 09-28-2022 C reactive protein [Mass/volume] in Serum or Plasma C-REACTIVE PROTEIN (CRP) Lab Routine Pleurodynia Expected: 07/29/2022, Expires: 09/28/2022 [facility] Work Phone: Comment on above: Expected: 07/29/2022 , Expires: 09/28/2022 Start: 07-29-2022 End: 09-28-2022 Erythrocyte sedimentation rate SED RATE WESTERGREN Lab Routine Pleurodynia Expected: 07/29/2022, Expires: 09/28/2022 [facility] Work Phone: Comment on above: Expected: 07/29/2022 , Expires: 09/28/2022 Start: 07-22-2022 Screening for malign ant neoplasm of breast Mammogram [facility] Start: 06-14-2022 DEPRESSION ASSESSMENT DEPRESSION ASS ESSMENT [facility] Start: 06-04-2022 Patient referral [facility] Work Phone: Start: 04-27-2022 [facility] Start: 04-23-2022 [facility] Start: 02-12-2022 Influenza vaccination [facility] Start: 12-11-2021 Influenza vaccination INFLUENZA (#1) [facility] Comment on above: Postponed from 02/12 (Declined at this time) Start: 11-03-2021 Patient referral [facility] Work Phone: Start: 11-01-2021 Mammography [facility] Start: 11-01-2021 Screening for malign ant neoplasm of breast Mammogram Screening [facility] Start: 10-28-2021 Adult depression scr eening assessment DEPRESSION SCREENING [facility] Start: 09-26-2021 Patient referral [facility] Work Phone: Start: 09-01-2021 Patient [address] [facility] Work Phone: Start: 08-27-2021 COVID-19 VACCINE (3 - Booster for Pfizer series) COVID-19 VACCINE (3 - Booster for Pfizer series) [facility] Start: 06-14-2021 DEPRESSION ASSESSMENT DEPRESSION ASS ESSMENT [facility] Start: 05-24-2021 COVID-19 VACCINE (3 - Booster for Pfizer series) COVID-19 VACCINE (3 - Booster for Pfizer series) [facility] Start: 05-24-2021 COVID-19 VACCINE (3 - Pfizer series) COVID-19 VACCINE (3 - Pfizer series) [facility] Start: 03-11-2021 Colonoscopy COLONOSCOPY [facility] Start: 03-11-2021 COLORECTAL CANCER SCREENING COLORECTAL CANCER SCREENING [facility] Start: 03-11-2021 Screening for malign ant neoplasm of colon [facility] Start: 2021 SHINGRIX VACCINE (1 of 2) STUART GRIX VACCINE (1 of 2) [facility] Start: 02-09-2020 Urine microalbumin profile [facility] Start: 01-24-2016 COLOGUARD (FIT-DNA) COLOGUARD (FIT-D NA) [facility] Start: 01-24-[address] COLONOGRAPHY [facility] Start: 01-24-2016 FECAL OCCULT BLOOD FECAL OCCULT BLOO D [facility] Start: 01-24-2016 Screening for malign ant neoplasm of colon [facility] Start: 01-24-2016 SIGMOIDOSCOPY SIGMOIDOSCOPY [facility] Start: 01-24-1992 Screening for malign ant neoplasm of cervix Pap Smear [facility] Start: 1990 Pneumococcal Vaccine : 50+ (1 of 2 - PCV) Pneumococcal Vaccine: 50+ (1 of 2 - PCV) [facility] Start: 1989 Anxiety Screening Anxiety Screening [facility] Start: 1989 Depression Screening Depression Scre ening [facility] Start: 1977 PNEUMOCOCCAL (1 - PCV) PNEUMOCOCCAL (1 - PCV) [facility] Start: 1977 Pneumococcal vaccination [facility] Start: 1971 Screening for malign ant neoplasm of colon [facility] Alanine aminotransfe rase [Enzymatic activity/volume] in Serum or Plasma [facility] Albumin [Mass/volume ] in Serum or Plasma [facility] Alkaline phosphatase [Enzymatic activity/volume] in Serum or Plasma [facility] Anion gap in Serum o r Plasma [facility] Bilirubin, total measurement [facility] BUN/Creatinine ratio [facility] Calcium [Mass/volume ] in Serum or Plasma [facility] Carbon dioxide, tota l [Moles/volume] in Central venous blood [facility] CBC W Auto Different ial panel - Blood [facility] Cholesterol [Mass/vo lume] in Serum or Plasma [facility] Cholesterol in HDL [Mass/volume] in Serum or Plasma [facility] Cobalamin (Vitamin B 12) [Mass/volume] in Serum or Plasma [facility] Comprehensive metabo lic 1999 panel - Serum or Plasma [facility] Creatinine [Mass/vol ume] in Serum or Plasma [facility] CT Chest contrast [facility] Erythrocyte mean corpuscular volume determination [facility] Glucose [Mass/volume ] in Serum or Plasma [facility] Hematocrit [Volume Fraction] of Blood [facility] Hemoglobin [Mass/vol ume] in Blood [facility] Hemoglobin A1c/Hemoglobin.total in Blood [facility] Hemoglobin A1c/Hemoglobin.total in Blood [facility] Leukocytes [#/volume ] in Blood [facility] Lipid 1996 panel - S james or Plasma [facility] Low density lipoprot ein cholesterol measurement [facility] Magnesium measurement [facility] Mean corpuscular hemoglobin concentration determination [facility] Mean corpuscular hemoglobin determination [facility] Measurement of renal function [facility] MG Breast - bilatera l Screening [facility] Myelogram [facility] Work Phone: Neutrophil count [facility] Neutrophil percent differential count [facility] End: 11-01-2022 NITRIC OXIDE, EXHALED NITRIC OXIDE, EXHALED PFT Routine Cough variant asthma 1 Occurrences starting 10/02/2021 until 11/01/2022 [facility] Work Phone: Comment on above: 1 Occurrences starti ng 10/02/2021 until 11/01/2022 NM Heart Views W str ess and W radionuclide IV [facility] Patient Education [facility] Work Phone: Patient referral [facility] Work Phone: Platelets [#/volume] in Blood [facility] Polysomnography [facility] Potassium measurement [facility] Red blood cell count [facility] Red cell distributio n width determination [facility] Serum chloride measurement [facility] Sodium measurement [facility] T4 free measurement [facility] Thyroid stimulating hormone measurement [facility] Thyroid stimulating hormone measurement [facility] Total cholesterol:HD L ratio measurement [facility] Total protein measurement [facility] Triglycerides measurement [facility] Triiodothyronine, fr ee measurement [facility] Urea nitrogen [Mass/volume] in Serum or Plasma [facility] Vitamin D, 25-hydrox y measurement [facility] VLDL cholesterol measurement [facility] XR Tibia and Fibula 2 Views [facility] Immunizations Immunization Date Immunization Notes Care Provider Wilbur gonzales 10-30-2024 tetanus toxoid, reduced diphtheria toxoid, and acellular pertussis vaccine, adsorbed Xr [place] Work Phone: [facility] 05-13-2023 influenza, injectabl e, quadrivalent, preservative free Dr. Bhavana Rodríguez Work Phone: [facility] 05-13-2023 influenza virus vaccine, unspecified formulation Shana Marquez APRN.CNP Work Phone: [facility] 07-28-2022 influenza, injectabl e, quadrivalent, preservative free Dr. Bhavana Rodríguez Work Phone: [facility] 07-28-2022 influenza, seasonal, injectable Dr. Bhavana Rodríguez Work Phone: [facility] 03-29-2021 Covid (Pfizer) Dr. Bhavana de leon Work Phone: [facility] 03-08-2021 Covid (Pfizer) Dr. Bhavana de leon Work Phone: [facility] 06-06-2019 influenza, injectabl e, quadrivalent, contains preservative Shan Violet HOME HEALTH CLINICIAN.DAXA MAGALLON Work Phone: [facility] 06-06-2019 influenza, injectabl e, quadrivalent, preservative free Dr. Bhavana Rodríguez Work Phone: [facility] 06-06-2019 influenza, seasonal, injectable Dr. Bhavana Rodríguez Work Phone: [facility] 06-06-2019 influenza virus vaccine, unspecified formulation Dagoberto Durham MD Work Phone: [facility] 03-12-2018 influenza, injectabl e, quadrivalent, contains preservative Shan Blabreanna HOME HEALTH CLINICIAN.DAXA MAGALLON Work Phone: [facility] 04-17-2017 influenza, injectabl e, quadrivalent, contains preservative Shan Blaz HOME HEALTH CLINICIAN.DAXA MAGALLON Work Phone: [facility] Work Phone: 04-04-2016 influenza, injectabl e, quadrivalent, contains preservative Shan Blabreanna HOME HEALTH CLINICIAN.SHERITA DNP Work Phone: [facility] 07-16-2015 measles, mumps and rubella virus vaccine Shan Blaz HOME HEALTH CLINICIAN.SHERITA DNP Work Phone: [facility] Work Phone: 03-23-2015 influenza, injectabl e, quadrivalent, contains preservative Shan Violet VELASQUEZ[facility] Work Phone: [facility] 02-19-2015 tuberculin skin test ; purified protein derivative solution, intradermal Dagoberto Durham MD Work Phone: [facility] 02-12-2015 tuberculin skin test ; purified protein derivative solution, intradermal Dagoberto Durham MD Work Phone: [facility] 03-29-2014 influenza, seasonal, injectable Shan Violet VELASQUEZ[facility] Work Phone: [facility] Work Phone: 03-25-2013 influenza virus vaccine, unspecified formulation Shan Violet VELASQUEZ[facility] Work Phone: [facility] 03-05-2012 influenza virus vaccine, unspecified formulation Shan Violet VELASQUEZ.[facility] Work Phone: [facility] Work Phone: 04-25-2011 influenza virus vaccine, unspecified formulation Shan Violet VELASQUEZ[facility] Work Phone: [facility] 09-22-2010 hepatitis B vaccine, adult dosage Shan Lazo APRN.[facility] Work Phone: [facility] 09-22-2010 hepatitis B vaccine, pediatric or pediatric/adolescent dosage Dr. Bhavana Rodríguez Work Phone: [facility] 03-24-2010 hepatitis B vaccine, adult dosage Shan Lazo APRN.[facility] Work Phone: [facility] 03-24-2010 hepatitis B vaccine, pediatric or pediatric/adolescent dosage Dr. Bhavana Rodríguez Work Phone: [facility] 03-24-2010 influenza virus vaccine, unspecified formulation Shan Lazo APRN.[facility] Work Phone: [facility] 02-08-2010 hepatitis B vaccine, adult dosage Shan Lazo APRN.[facility] Work Phone: [facility] 02-08-2010 hepatitis B vaccine, pediatric or pediatric/adolescent dosage Dr. Bhavana Rodríguez Work Phone: [facility] 02-08-2010 tetanus toxoid, reduced diphtheria toxoid, and acellular pertussis vaccine, adsorbed Shan Lazo APRN.[facility] Work Phone: [facility] 02-08-2010 tuberculin skin test ; purified protein derivative solution, intradermal Dagoberto Durham MD Work Phone: [facility] Work Phone: 03-28-2009 influenza virus vaccine, unspecified formulation Shan Lazo APRN.[facility] Work Phone: [facility] Work Phone: Payers Date Payer Category Payer Self-pay [id number] 2023 [facility] 1.2.8 [id number] 2023 Unknown [id number] 2021 Unknown [id number] 2021 Government (not [facility] care or Medicaid) [facility] [place] [address], [address] [address] [id number] 2021 Unknown O [employer] [id number] 2021-Present [phone] [address] [place] [address] PPO [id number]. [id number] 2021 Medicaid [place] [employer] [facility] MEDICAID [id number] 2021-Present [phone] [address] [place] [address] Medicaid [id number]. [id number] 2021 Medicaid [id number]. 1.13.159.2. [id number] 2021 Unknown [id number] 2018 Unknown [id number]. 1.13.159.2. 7.3.171014.315 2014 Unknown [id number] 1971 Unknown [id number] 2.16.840.1.550767.3.579.2. 627 1971 Unknown [id number] 2.16840.1.447165.3.579.2. 627 1971 Unknown [id number] 2.16.840.1.168217.3.579.2. 627 1971 Unknown [id number] 2.16.840.1.597735.3.579.2. 627 1971 Unknown [id number] 2.16.840.1.420549.3.579.2. 1069 1971 Unknown [id number] 2.16.840.1.741678.3.579.2. 1259 Unknown [id number] Unknown [id number] Unknown [id number] 2.16.840.1.945686.3.579.2. 462 Unknown [id number] 2.16.840.1.550668.3.579.2. 462 Unknown [id number] 2.16.840.1.362030.3.579.2. 462 Unknown [id number] 2.16.840.1.604692.3.579.2. 462 Unknown [id number] 2.16.840.1.869890.3.579.2. 462 Unknown [id number] 2.16.840.1.436546.3.579.2. 462 Unknown [id number] 2.16.840.1.898342.3.579.2. 462 Unknown [id number] 2.16.840.1.729102.3.579.2. 462 Unknown [id number] 2.16.840.1.710365.3.579.2. 462 Unknown [id number] 2.16.840.1.950578.3.579.2. 462 Unknown [id number] 2.16.840.1.549808.3.579.2. 462 Unknown [id number] 2.16.840.1.431466.3.579.2. 462 Unknown [id number] 2.16.840.1.123252.3.579.2. 462 Unknown [id number] 2.16.840.1.319202.3.579.2. 462 Unknown [id number] 2.16.840.1.518292.3.579.2. 462 Unknown [id number] 2.16.840.1.660725.3.579.2. 462 Unknown [id number] 2.16.840.1.235748.3.579.2. 462 Unknown [id number] 2.16.840.1.077960.3.579.2. 462 Unknown [id number] 2.16.840.1.763293.3.579.2. 462 Unknown [id number] 2.16.840.1.916408.3.579.2. 462 Unknown [id number] 2.16.840.1.833874.3.579.2. 462 Unknown [id number] 2.16.840.1.207646.3.579.2. 462 Unknown [id number] 2.16.840.1.012578.3.579.2. 462 Unknown [id number] 2.16.840.1.167305.3.579.2. 462 Unknown [id number] 2.16.840.1.410407.3.579.2. 462 Unknown [id number] 2.16.840.1.744821.3.579.2. 462 Unknown [id number] 2.16.840.1.013149.3.579.2. 462 Unknown [id number] 2.16.840.1.939395.3.579.2. 462 Unknown [id number] 2.16.840.1.119002.3.579.2. 462 Unknown [id number] 2.16.840.1.155249.3.579.2. 462 Unknown [id number] 2.16.840.1.169844.3.579.2. 462 Unknown [id number] 2.16.840.1.032642.3.579.2. 462 Unknown [id number] 2.16.840.1.603085.3.579.2. 462 Unknown [id number] 2.16.840.1.792524.3.579.2. 462 Unknown [id number] 2.16.840.1.457316.3.579.2. 462 Social History Date Type Detail Facility [facility] Start: 1970 Sex Assigned At Female [facility] Start: 09-22-2021 End: 11-10-2024 Tobacco smoking status NHIS Never smoked tobacco [facility] Start: 08-13-2021 End: 11-08-2024 Alcohol intake Current non-drinker of alcohol (finding) [facility] Start: 03-08-2020 End: 06-03-2021 History SDOH Alcohol Frequency 1 [facility] Start: 03-08-2020 End: 03-21-2020 History SDOH Social Connections Phone 3 [facility] Start: 03-21-2020 End: 06-03-2021 History SDOH Social Connections Get Together 2 [facility] Start: 03-21-2020 History SDOH Physical Activity DPW 0 [facility] Start: 10-13-2019 Education 17 [facility] Start: 02-28-2020 End: 04-29-2022 Exposure to SARS-CoV-2 (event) Not sure [facility] Start: 10-31-2021 End: 07-13-2023 Tobacco smoking status NHIS Unknown if ever smoked [facility] Start: 10-03-2015 None [facility] Start: 03-12-2020 Spouse/ Significant Other [facility] Start: 01-04-2022 End: 01-14-2022 Exposure to SARS-CoV-2 (event) Unable to assess [facility] Work Phone: Start: 06-10-2011 End: 03-30-2022 Tobacco use and exposure Smokeless tobacco non-user [facility] Start: 03-20-2020 End: 05-20-2020 History of Social function [facility] Start: 03-20-2020 End: 05-20-2020 Social connection and isolation panel [facility] Do you belong to any clubs or organizations such as scientology groups, unions, fraternal or athletic groups, or school groups? Yes [facility] Marital Status Not on file [place] [facility] How many standard dr inks containing alcohol do you have on a typical day? 1 or 2 [facility] How hard is it for y ou to pay for the very basics like food, housing, medical care, and heating Somewhat hard [facility] Work Phone: Do you feel stress - tense, restless, nervous, or anxious, or unable to sleep at night because your mind is troubled all the time - these days [OSQ] To some extent [facility] (I/We) worried wheth er (my/our) food would run out before (I/we) got money to buy more. Sometimes true [facility] In the past 12 month s, was there a time when you were not able to pay the mortgage or rent on time? No [facility] Start: 08-26-2020 Gender identity Identifies as female gender (finding) [facility] Start: 1970 Sex assigned at Not on file [facility] Start: 07-20-2024 Alcoholic beverage intake Lifetime non-drinker (finding) [facility] Start: 09-05-2024 End: 10-02-2024 Sex Female (finding) [facility] Medical Equipment Procedure Code Equipment Code Equipment Origin al Text Equipment Identifier Dates Lead Uplr V Epi Scrw [id number] 53cm - [id number] Start: 07-11-2010 Comment on above: Description: Epicard ial Lead Lead Uplr V Epi Scrw 5071 53cm - [id number] Start: 07-11-2010 Comment on above: Description: Epicard ial Lead Adpt Ld 32mm Kt Slv Increasing - [id number] Start: 07-11-2010 Comment on above: Description: Lead Ad aptor Kit ADPT LD KT, [id number] [facility] [id number] Start: 09-10-2020 Goals Date Patient Goal Desired Activity /State Functional Status Date Assessment Result Facility 08-20-2022 Functional status Patient Activity Bedres t [facility] Work Phone: 08-20-2022 Functional status [facility] Work Phone: 04-20-2022 Functional Status Assistive Device None [facility] 04-20-2022 Functional Status Resting [facility] 09-22-2021 Functional Status [facility] 09-22-2021 Functional Status [facility] 09-10-2020 Are you deaf, or do you have serious difficulty hearing No 09/10/2020 4:00 PM EDT Aurelio Haas, MARIA EUGENIA No [facility] 09-10-2020 Are you blind, or do you have serious difficulty seeing, even when wearing glasses No 09/10/2020 4:00 PM EDT Aurelio Haas RN No [facility] 09-10-2020 Do you have serious difficulty walking or climbing stairs No 09/10/2020 4:00 PM EDT Aurelio Haas RN No [facility] 09-10-2020 Do you have difficul ty dressing or bathing No 09/10/2020 4:00 PM EDT Aurelio Haas, MARIA EUGENIA No [facility] 09-10-2020 Because of a physica l, mental, or emotional condition, do you have difficulty doing errands alone such as visiting a physician's office or shopping No 09/10/2020 4:00 PM EDT Aurelio Haas RN No [facility] Mental Status Date Assessment Result Facility 03-02-2023 Cognitive function Voice/Name [facility] Work Phone: 02-23-2023 Cognitive function Level Of Cons ciousness Awake;Alert;Appropriate;Fol lows Commands [facility] Work Phone: 08-19-2022 Cognitive function Voice/Name [facility] Work Phone: 04-29-2022 Cognitive function Level Of Cons ciousness Awake;Appropriate;Follows Commands;Drowsy [facility] Work Phone: 04-23-2022 Cognitive function Level Of Cons ciousness Alert;Appropriate;Follows Commands;Drowsy [facility] Work Phone: 04-20-2022 Mental Status Orientation Oriented x 4 [facility] 04-20-2022 Mental Status [facility] 01-05-2022 Cognitive function Voice/Name [facility] Work Phone: 10-29-2021 Cognitive function Voice/Name [facility] Work Phone: 09-22-2021 Mental Status [facility] 09-22-2021 Mental Status [facility] 07-07-2021 Cognitive function Voice/Name [facility] Work Phone: 09-10-2020 Because of a physica l, mental, or emotional condition, do you have serious difficulty concentrating, remembering, or making decisions No 09/10/2020 4:00 PM EDT Aurelio Haas RN No [facility] Clinical Notes 07-12-2010 to 11-20-2024 Note Date & Type Note Facility 11-20-2024 Discharge summary Note Date/Time November 20, 2024 5:26p [facility] Physical Therapy [facility] [address] [place] [address]. [address] [place] [address] / REHABILITATION SERVICES DISCHARGE SUMMARY MR#: [id number] Acct: [id number] Name: SYLVIA MANCUSO Rep #: [id number] : 1970 54 From: Gretel Michelle PT, Cert. MDT Referring DrFlakita: BANG LYNNE Status: REG R Insurance: [employer]URANCE Discharge Summary D/C summary: It has been my pleasure to treat SYLVIA MANCUSO referred by Bang Lynne, with the diagnosis of S/P L4-5 & L5-S1 LAMINECTOMY 08/04/23 for a total of 15 visit(s). Discharge Date: 11/20/24 Please see the following information for a summary of their discharge status. Subjective Subjective: PATIENT REPORTS SHE IS DOING GREAT. STATES SHE HAS A MEMBERSHIP AT THE [employer] AND WENT WITH HER ONCE ALREADY. REPORTS SHE DID GOOD AFTER LAST PT SESSION AND WOULD BE HAPPY IF WE AGREE WITH HER BEING DISCHARGED FROM PT. STATES SHE DOESN'T FEEL RESTRICTED IN ANYTHING AND IS NO LONGER WEARING THE BRACE. Overall Improvement % Improvement: 100 Objective Objective/Function: PATIENT WAS SEEN TODAY FOR RE-ASSESSMENT OF PROGRESS TOWARD THE SET PT GOALS AND THE NEED FOR FURTHER PHYSICAL THERAPY VS READINESS FOR DISCHARGE. UPON EXAM TODAY: INDEP GAIT AND TRANSFERS WITHOUT GROSS DEVIATION OR GUARDING. VIRGINIE LE STRENGTH 5/5. LE ROM: MILD LE STIFFNESS BUT WFL AND NO C/O PAIN WITH TESTIN. LUMBAR MVMT LOSS: FLEX - MIN EXT - MOD R SG - MIN L SG - NIL PATIENT DENIES PAIN WITH LUMBAR ROM TESTING. NEGATIVE VIRGINIE LE DURAL SIGNS. Goals Goal 1:: DECREASE C/O L LE SX'S BY AT LEAST 80% Goal Progress: Goal Met Goal 2:: PATIENT WILL HAVE VIRGINIE LE ROM WFL ALL PLANES W/O C/O PAIN TO HELP PATIENT RETURN TO NORMAL FUNCTION Goal Progress: Goal Met Goal 3:: PATIENT WILL HAVE LUMBAR ROM WFL ALL PLANES WITHOUT C/O PAIN Goal Progress: Progressing Goal 4:: PATIENT WILL HAVE CORE AND VIRGINIE LE STRENGTH WFL TO HELP PATIENT RETURN TO NORMAL FUNCTION. Goal Progress: Goal Met Goal 5:: INDEP HEP Goal Progress: Goal Met Plan Plan: D/C TO INDEP EX. PATIENT AGREEABLE. D/C Information d/c sentence: If there are questions or concerns regarding this patient's physical therapy, please feel free to call me at [phone]. Thank you for the referral of thispatient. Sincerely, Gretel Michelle PT, Cert MDT Balance/Gait/Functional tests Balance/Special Test Scores Oswestry Low Back Score: 0 Improvement % Improvement: 100 <Electronically signed by Harish Stuart PT. T> 11/20/24 [id number] CC: Dr. Bhavana Rodríguez MD; BANG LYNNE ~ EARLENE Signed [facility] Work Phone: [phone]) 641-446806-09-2025 Discharge summary [facility] Physical Therapy [facility] [address] [place] [address] / REHABILITATION SERVICES DISCHARGE SUMMARY MR#: [id number] Acct: [id number] Name: SYLVIA MANCUSO Rep #: [id number] : 1970 54 From: Harish Stuart PT. T Referring DrFlakita: BANG LYNNE Status: REG RCR Insurance: [employer] INSURANCE Discharge Summary D/C summary: It has been my pleasure to treat SYLVIA MANCUSO referred by Bang Lynne, with the diagnosis of S/P L4-5 & L5-S1 LAMINECTOMY 08/04/23 for a total of 15 visit(s). Discharge Date: 11/20/24 Please see the following information for a summary of their discharge status. Subjective Subjective: PATIENT REPORTS SHE IS DOING GREAT. 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 REPORTS SHE DID GOOD AFTER LAST PT SESSION AND WOULD BE HAPPY IF WE AGREE WITH HER BEING DISCHARGED FROM PT. STATES SHE DOESN'T FEEL RESTRICTED IN ANYTHING AND IS NO LONGER WEARING THE BRACE. Overall Improvement % Improvement: 100 Objective Objective/Function: PATIENT WAS SEEN TODAY FOR RE-ASSESSMENT OF PROGRESS TOWARD THE SET PT GOALS AND THE NEED FOR FURTHER PHYSICAL THERAPY VS READINESS FOR DISCHARGE. UPON EXAM TODAY: INDEP GAIT AND TRANSFERS WITHOUT GROSS DEVIATION OR GUARDING. VIRGINIE LE STRENGTH 5/5. LE ROM: MILD LE STIFFNESS BUT WFL AND NO C/O PAIN WITH TESTIN. LUMBAR MVMT LOSS: FLEX - MIN EXT - MOD R SG - MIN L SG - NIL PATIENT DENIES PAIN WITH LUMBAR ROM TESTING. NEGATIVE VIRGINIE LE DURAL SIGNS. Goals Goal 1:: DECREASE C/O L LE SX'S BY AT LEAST 80% Goal Progress: Goal Met Goal 2:: PATIENT WILL HAVE VIRGINIE LE ROM WFL ALL PLANES W/O C/O PAIN TO HELP PATIENT RETURN TO NORMAL FUNCTION Goal Progress: Goal Met Goal 3:: PATIENT WILL HAVE LUMBAR ROM WFL ALL PLANES WITHOUT C/O PAIN Goal Progress: Progressing Goal 4:: PATIENT WILL HAVE CORE AND VIRGINIE LE STRENGTH WFL TO HELP PATIENT RETURN TO NORMAL FUNCTION. Goal Progress: Goal Met Goal 5:: INDEP HEP Goal Progress: Goal Met Plan Plan: D/C TO INDEP EX. PATIENT AGREEABLE. D/C Information d/c sentence: If there are questions or concerns regarding this patient's physical therapy, please feel free to call me at [phone]. Thank you for the referral of thispatient. Sincerely, Gretel Michelle, PT, Cert MDT Balance/Gait/Functional tests Balance/Special Test Scores Oswestry Low Back Score: 0 Improvement % Improvement: 100 11/20/24 [id number] CC: Dr. Bhavana Rodríguez MD; BANG LYNNE ~ EARLENE Signed [facility]06-02-2025 Radiology Diagnostic study note [facility] Imaging Services [address] [place] [address] Tibia & Fibula 2 Views MR#: [id number] Acct: [id number] Name: SYLVIA MANCUSO Rep #: [id number] : 1970 F 54 From: Abisai Yates DO PCP: Dr. Bhavana Rodríguez MD Status: REG CLI Study:Tibia & Fibula 2 Views Date of Exam: 11/13/24 Exam# [id number] Ordering Dr: Bhavana Rodríguez MD EXAM: Three views right tibia fibula. CLINICAL HISTORY: Patient fell 1 month ago. Pain below patella. Area was infected last month after the fall. COMPARISON: None TECHNIQUE: Three views of the right tibia and fibula. FINDINGS: There is normal mineralization of the osseous structures. There are no osteoblastic or osteolytic lesions seen. There is no osteomyelitis. There are no fractures or dislocations. Joint spaces are well preserved. Soft tissues are unremarkable. RAD/Tibia & Fibula 2 Views IMPRESSION: Unremarkable right tibia fibula study. Reading Location: [facility] CC: Dr. Bhavana Rodríguez MD ~ Rn Transitional: Signed [facility]06-02-2025 [facility] [facility] [place] [address] OFFICE VISIT Date of Service: 11/13/24 MR#: [id number] Acct: [id number] Name: SYLVIA MANCUSO Rep #: [id number] : 1970 Provider: Dr. 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: No Accompanied by: Self Is patient in pain?: Yes (Right knee) Pain scale (1-10): 8 Allergies naproxen Allergy (Verified 11/13/24 14:54) Hives vancomycin Allergy (Verified 11/13/24 14:54) Rash carvedilol Adverse Reaction (Verified 11/13/24 14:54) Upset Stomach Medications ?Medication ?Instructions ?Recorded ?Confirmed ?Type atenolol 25 mg tablet (Tenormin) 25 mg PO QHS heart 11/13/24 History hydroxyzine HCl 25 mg tablet 25 mg PO Q6H PRN PRN Anxi ety 05/02/19 11/13/24 History albuterol sulfate 1.25 mg/3 mL 2.5 mg (6 mL) inhalatio n TID-QID 07/28/22 11/13/24 Rx solution for nebulization PRN shortness of breath or wheezing 30 days #90 mL albuterol sulfate 90 mcg/actuation 1 - 2 puff inhalati on Q4H PRN PRN 07/28/22 11/13/24 Rx aerosol inhaler Wheezing ##1 ipratropium bromide 21 mcg (0.03 2 spray intranasal BI D-TID PRN 07/28/22 11/13/24 Rx %) nasal spray allergy symptoms #30 mL Reli On [place] glucometer 02/25/23 11/13/24 History aspirin 81 mg tablet,delayed 81 mg PO DAILY 05/13/23 0 11/13/24 History release (Adult Low Dose Aspirin) lisinopril 2.5 mg tablet 2.5 mg PO QHS BP #90 tabs 11/13/24 Rx Held on 02/24/24. Instructions: Hypotension flash glucose sensor (FreeStyle #1 ea 11/29/23 5 Rx Carli 14 Day Sensor kit) atorvastatin 20 mg tablet 20 mg PO DAILY #30 tabs 02/1211/13/24 Rx omeprazole 40 mg capsule,delayed 40 mg PO BID Gerd #18 0 caps 05/05/24 11/13/24 Rx release potassium chloride 10 mEq 10 meq PO DAILY #90 tabs 11/13/24 Rx tablet,extended release semaglutide 0.25 mg or 0.5 mg (2 0.5 mg (0.736 mL) sub cut QWEEK #3 08/21/24 11/13/24 Rx mg/3 mL) subcutaneous pen injector mL (Ozempic) venlafaxine 150 mg 150 mg PO DAILY #90 caps 11/13/24 Rx capsule,extended release 24 hr furosemide 20 mg tablet 20 mg PO DAILY #90 tabs 10/1211/13/24 Rx fluticasone furoate 200 1 inh inhalation Q24H #60 ea 11/08/24 11/13/24 Rx mcg-vilanterol 25 mcg/dose inhalation powder (Breo Ellipta) [facility] Medical History (Updated 11/13/24 @ 16:[address] Bhavana Rodríguez MD) Obesity (BMI 30-39.9) Wound of skin Contusion of right tibia Elevated alkaline phosphatase level Chest pain Diabetes Flank pain Hematuria Abnormal stress test Hyperlipidemia Elevated TSH Type 2 diabetes mellitus Diastolic dysfunction Dyspnea on exertion SOB (shortness of breath) Left bundle branch block Biventricular ICD (implantable cardioverter-defibrillator) in place (09/10/20) Abnormal PFTs Asthma with acute exacerbation Allergic rhinitis due to allergen Excessive daytime sleepiness Encounter for wellness examination in adult Encounter to establish care History of cardiomyopathy Heart disease A-fib Arthritis Asthma Back injury Lumbosacral radiculopathy at S1 DDD (degenerative disc disease), lumbar Bronchitis Contusion of lower back Contusion, hip COVID-19 Congestive heart failure (CHF) ICD (implantable cardioverter-defibrillator) in place Atypical chest pain Congestive heart failure (CHF) Nonischemic cardiomyopathy Surgical History History of back surgery History of neck surgery History of ankle surgery History of cholecystectomy History of appendectomy Status post biventricular pacemaker Family History Grandmother CVA (cerebral vascular accident) Mother Colon cancer High cholesterol Other Bladder cancer Cancer Diabetes Hypertension Social History Smoking Status: Never smoker alcohol intake: never substance use type: does not use caffeine: Yes (sometimes) Type: carbonated beverages, coffee and tea HPI HPI Chief Complaint: Knee Infection Details: SYLVIA MANCUSO, is a 54 F who presents to the office today for an acute care follow-up visit. Patienthad been seen a couple of occasions at an outside urgent care after she had fallen and scraped an area on the right knee. She wasgoing to a graduation ceremony she stumbled, fell landing with her full body weight, on the right knee, more technically the tibia. She then rolled to her side as to tryand protect her back as she just had back surgery not long ago. Received notes through messaging system from the patient in regards to a wound on her knee. Once contacted, per nursing note: Pt called in stating that on 10/29 she fell and scraped her right knee. since then she has gotten an infection. she stated that she went to [facility] urgent care on 10/30 and they gave herdoxycycline and MUPIROCIN 2 % TOPICAL OINTMENT. they did an x-ray which did not show any bony abnormalities, it was negative. she stated that it is still very sore, has pus and very red aroundthe area. denies warmth around the area, feverand chills. she was wondering what else she should door if she needed to go be seen again? please advise. She initially went to the urgent care at [facility] on the and then also again on 08 November. Those notes were received and reviewed on the . X-ray from the did not show any acute fracture of the tibia. We were not aware if she was at the urgent care on the or the until she contacted our office. Initially had been given oral doxycycline as well as topical mupirocin. On the second visit to urgent care she was referred for consult [facility] [place] however wouldbe easier down here local I think would be covered through her insurance. We asked that she would keep that wound clean and dry based on the images that she sent to me. Now following up. Review of systems per chart. No fever, chills. No significant pain with walking. Area of wound soreto touch, not ger pain. Physical exam. Vital signs on chart. My exam is focused, right lower extremity. She has a contused area on the anterior right tibia, just below the patella. There is scab present, no significant drainage, no erythema that is consistent with cellulitis. There is hyperemia as expected around this wound. I suspect this was more of a crush wound due to the nature of the wound. There is significant bone tenderness consistent with bone contusion. ROS Const Constitutional: Positive for weight change; No body ache, chills, excessive sweating, fatigue, fever(s), frequent falls, headache(s), snoring, weakness or change in appetite Eyes Eyes: No blurry vision, change in vision, eye pain or Light sensitivity ENT ENT: No abnormal hearing, ear or mastoid pain, tinnitus, nasal congestion, headache(s), neck pain or sore throat Resp Respiratory: No cough, shortness of breath, snoring or wheezing Cardio Cardiology: No chest pain at rest, chest pain with exertion, excessive sweating,dyspnea on exertion, lightheadedness, orthopnea or palpitations Gastro GI: No abdominal pain, change in bowel habits, constipation, cramping, diarrhea,nausea/dyspepsia orvomiting Genitourinary-Female: No burning urination, painful urination, urinary incontinence or urinary frequency Musc Musculoskeletal: No abnormal gait, joint pain, back pain, limited range of motion, muscle weakness,neck pain or numbness Skin Skin: Positive for redness, skin pain and wounds (Right knee); No dry skin, lesions, itchy eyes or rash Neuro Neurology: No abnormal gait, abnormal hearing, weakness, frequent falls, headache(s), memory loss or numbness Psych Psychiatric: No anxiety, No change in appetite, No depression, No memory loss and No Thoughts of harming yourself/Others Endo Endocrine: Positive for weight change; No cold intolerance, excessive sweating, fatigue, flushing, heat intolerance, increased thirst/drinking or increased hunger Aller/Imm Allergy/Immunologic: No itchy eyes, seasonal allergy symptoms, hives or wheezing Lev/Lymp Hematologic/Lymphatic: No easy bleeding or easy bruising Coding Level of Care Code Off vis,est,level 3 Diagnoses Contusion of right tibia S80.11XA Wound of skin T14.8XXA Diabetes E11.9 Obesity (BMI 30-39.9) E66.9 Time Spent (min) 30 Assessment and Plan Assessment and Plan (1) Contusion of right tibia: Status: Acute (2) Wound of skin: Status: Acute (3) Diabetes: Status: Chronic (4) Obesity (BMI 30-39.9): Status: Acute Orders: Orders Tibia & Fibula 2 Views Today S80.11XA - Contusion of right lower leg, initial encounter Plan Details Additional Comments: Patient presented today in follow-up after contused leg, skin wound. Again fellon the , went tourgent care at [facility] on the . Was given doxycycline 100 mg p.o. twice daily x 7 daysreportedly and topical mupirocin. She then presented back to [facility] on the as the wound was stillpresent, tender. They referred her to the wound center. I asked her to stop putting on topical medication of any kind, kept the wound clean and dry over the weekend and she presented to the office here for follow-up this morning. Examination shows the wound to be actually healing as I think is appropriate. She landed onthe anterior tibia just below the patella, with basically full weight on concrete. Undoubtedly contused the bone, and this was probably more of a crush of the skin than it was simple abrasion. Still a bit of tenderness of the anterior tibia as might be appropriate for a contused bone as we discussed. There is no drainage currently. Will go ahead and get x-ray right tibia to re look at the tibia once again, to make sure there is no findings that would be consistent with developing deeper infection but I am not highly suspicious necessarily of that right now. Hold off on anyfurther antibiotic. We can justcover this with a dry dressing here in the office for now. Otherwiseagain if there is no concerning findings I would continue observation and expect that there will bevery slow resolution to the bone tenderness. We also spent considerable time discussing her diabetes, weight. Weight has been slowly goingback up. She was losing a fair amount for a while but she wasalso having a lotof nausea during the time of the weight loss, which was at least partly related tothe Ozempic. She continues on Ozempic at 0.5 mg currently. I spent a lot oftime discussing dietary nutritional patterns once again. Overall is doing well. Continue new good high-quality diet. I have asked her to really try to curb and cut out any of the energy dense carbohydrates such as wheat products, flour,rice and potatoes for at least the short-term to see if this helps. She is exercising. She does get frustrated because she is not losing additional weightat this point. We discussed perhaps a trial of tirzepatide and she will contacther insurance and see if that is covered under her insurance. Overall 30- minutevisit. Also discussed that perhaps needs to have a regular follow-up with cardiology to consider getting off of atenolol in the future as it could be hampering some of her weight issues. 11/13/24 1612 r MD> Date _ Bhavana Rodríguez MD Cosigner Signature: Date (if applicable) CC: ~ [facility]06-02-2025 Progress note Author Bhavana Rodríguez [facility] Note Date/Time November 13, 2024 4:12p m [facility] [address] [place], [place] [address] OFFICE VISIT Date of Service: 11/13/24 MR#: [id number] Acct: [id number] Name: SYLVIA MANCUSO Ivon Rep #: [id number] : 1970 Provider: Dr. 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: No Accompanied by: Self Is patient in pain?: Yes (Right knee) Pain scale (1-10): 8 Allergies naproxen Allergy (Verified 11/13/24 14:54) Hives vancomycin Allergy (Verified 11/13/24 14:54) Rash carvedilol Adverse Reaction (Verified 11/13/24 14:54) Upset Stomach Medications ?Medication ?Instructions ?Recorded ?Confirmed ?Type atenolol 25 mg tablet (Tenormin) 25 mg PO QHS heart 11/13/24 History hydroxyzine HCl 25 mg tablet 25 mg PO Q6H PRN PRN Anxi ety 05/02/19 11/13/24 History albuterol sulfate 1.25 mg/3 mL 2.5 mg (6 mL) inhalatio n TID-QID 07/28/22 11/13/24 Rx solution for nebulization PRN shortness of breath or wheezing 30 days #90 mL albuterol sulfate 90 mcg/actuation 1 - 2 puff inhalati on Q4H PRN PRN 07/28/22 11/13/24 Rx aerosol inhaler Wheezing ##1 ipratropium bromide 21 mcg (0.03 2 spray intranasal BI D-TID PRN 07/28/22 11/13/24 Rx %) nasal spray allergy symptoms #30 mL Reli On [place] glucometer 02/25/23 11/13/24 History aspirin 81 mg tablet,delayed 81 mg PO DAILY 05/13/23 0 11/13/24 History release (Adult Low Dose Aspirin) lisinopril 2.5 mg tablet 2.5 mg PO QHS BP #90 tabs 11/13/24 Rx Held on 02/24/24. Instructions: Hypotension flash glucose sensor (FreeStyle #1 ea 11/29/23 5 Rx Carli 14 Day Sensor kit) atorvastatin 20 mg tablet 20 mg PO DAILY #30 tabs 02/1211/13/24 Rx omeprazole 40 mg capsule,delayed 40 mg PO BID Gerd #18 0 caps 05/05/24 11/13/24 Rx release potassium chloride 10 mEq 10 meq PO DAILY #90 tabs 11/13/24 Rx tablet,extended release semaglutide 0.25 mg or 0.5 mg (2 0.5 mg (0.736 mL) sub cut QWEEK #3 08/21/24 11/13/24 Rx mg/3 mL) subcutaneous pen injector mL (Ozempic) venlafaxine 150 mg 150 mg PO DAILY #90 caps 11/13/24 Rx capsule,extended release 24 hr furosemide 20 mg tablet 20 mg PO DAILY #90 tabs 10/1211/13/24 Rx fluticasone furoate 200 1 inh inhalation Q24H #60 ea 11/08/24 11/13/24 Rx mcg-vilanterol 25 mcg/dose inhalation powder (Breo Ellipta) [facility] Medical History (Updated 11/13/24 @ 16:[address] Bhavana Rodríguez MD) Obesity (BMI 30-39.9) Wound of skin Contusion of right tibia Elevated alkaline phosphatase level Chest pain Diabetes Flank pain Hematuria Abnormal stress test Hyperlipidemia Elevated TSH Type 2 diabetes mellitus Diastolic dysfunction Dyspnea on exertion SOB (shortness of breath) Left bundle branch block Biventricular ICD (implantable cardioverter-defibrillator) in place (09/10/20) Abnormal PFTs Asthma with acute exacerbation Allergic rhinitis due to allergen Excessive daytime sleepiness Encounter for wellness examination in adult Encounter to establish care History of cardiomyopathy Heart disease A-fib Arthritis Asthma Back injury Lumbosacral radiculopathy at S1 DDD (degenerative disc disease), lumbar Bronchitis Contusion of lower back Contusion, hip COVID-19 Congestive heart failure (CHF) ICD (implantable cardioverter-defibrillator) in place Atypical chest pain Congestive heart failure (CHF) Nonischemic cardiomyopathy Surgical History History of back surgery History of neck surgery History of ankle surgery History of cholecystectomy History of appendectomy Status post biventricular pacemaker Family History Grandmother CVA (cerebral vascular accident) Mother Colon cancer High cholesterol Other Bladder cancer Cancer Diabetes Hypertension Social History Smoking Status: Never smoker alcohol intake: never substance use type: does not use caffeine: Yes (sometimes) Type: carbonated beverages, coffee and tea HPI HPI Chief Complaint: Knee Infection Details: SYLVIA MANCUSO, is a 54 F who presents to the office today for an acute care follow-up visit. Patient had been seen a couple of occasions at an outside urgent care after she had fallen and scraped an area on the right knee. She wasgoing to a graduation ceremony she stumbled, fell landing with her full body weight, on the right knee, more technically the tibia. She then rolled to her side as to try and protect her back as she just had back surgery not long ago. Received notes through messaging system from the patient in regards to a wound on her knee. Once contacted, per nursing note: Pt called in stating that on 10/29 she fell and scraped her right knee. since then she has gotten an infection. she stated that she went to [facility] urgent care on 10/30 and they gave herdoxycycline and MUPIROCIN 2 % TOPICAL OINTMENT. they did an x-ray which did not show any bony abnormalities, it was negative. she stated that it is still very sore, has pus and very red around the area. denies warmth around the area, feverand chills. she was wondering what else she should do or if she needed to go be seen again? please advise. She initially went to the urgent care at [facility] on the and then also again on 08 November. Those notes were received and reviewed on the . X-ray from the did not show any acute fracture of the tibia. We were not aware if she was at the urgent care on the or the until she contacted our office. Initially had been given oral doxycycline as well as topical mupirocin. On the second visit to urgent care she was [facility] [place] however would be easier down here local I think would be covered through her insurance. We asked that she would keep that wound clean and dry based on the images that she sent to me. Now following up. Review of systems per chart. No fever, chills. No significant pain with walking. Area of wound sore to touch, not ger pain. Physical exam. Vital signs on chart. My exam is focused, right lower extremity. She has a contused area on the anterior right tibia, just below the patella. There is scab present, no significant drainage, no erythema that is consistent with cellulitis. There is hyperemia as expected around this wound. I suspect this was more of a crush wound due to the nature of the wound. There is significant bone tenderness consistent with bone contusion. ROS Const Constitutional: Positive for weight change; No body ache, chills, excessive sweating, fatigue, fever(s), frequent falls, headache(s), snoring, weakness or change in appetite Eyes Eyes: No blurry vision, change in vision, eye pain or Light sensitivity ENT ENT: No abnormal hearing, ear or mastoid pain, tinnitus, nasal congestion, headache(s), neck pain or sore throat Resp Respiratory: No cough, shortness of breath, snoring or wheezing Cardio Cardiology: No chest pain at rest, chest pain with exertion, excessive sweating,dyspnea on exertion, lightheadedness, orthopnea or palpitations Gastro GI: No abdominal pain, change in bowel habits, constipation, cramping, diarrhea,nausea/dyspepsia or vomiting Genitourinary-Female: No burning urination, painful urination, urinary incontinence or urinary frequency Musc Musculoskeletal: No abnormal gait, joint pain, back pain, limited range of motion, muscle weakness, neck pain or numbness Skin Skin: Positive for redness, skin pain and wounds (Right knee); No dry skin, lesions, itchy eyes or rash Neuro Neurology: No abnormal gait, abnormal hearing, weakness, frequent falls, headache(s), memory loss or numbness Psych Psychiatric: No anxiety, No change in appetite, No depression, No memory loss and No Thoughts of harming yourself/Others Endo Endocrine: Positive for weight change; No cold intolerance, excessive sweating, fatigue, flushing, heat intolerance, increased thirst/drinking or increased hunger Aller/Imm Allergy/Immunologic: No itchy eyes, seasonal allergy symptoms, hives or wheezing Lev/Lymp Hematologic/Lymphatic: No easy bleeding or easy bruising Coding Level of Care Code Off vis,est,level 3 Diagnoses Contusion of right tibia S80.11XA Wound of skin T14.8XXA Diabetes E11.9 Obesity (BMI 30-39.9) E66.9 Time Spent (min) 30 Assessment and Plan Assessment and Plan (1) Contusion of right tibia: Status: Acute (2) Wound of skin: Status: Acute (3) Diabetes: Status: Chronic (4) Obesity (BMI 30-39.9): Status: Acute Orders: Orders Tibia & Fibula 2 Views Today S80.11XA - Contusion of right lower leg, initial encounter Plan Details Additional Comments: Patient presented today in follow-up after contused leg, skin wound. Again fellon the , went to urgent care at [facility] on the . Was given doxycycline 100 mg p.o. twice daily x 7 days reportedly and topical mupirocin. She then presented back to [facility] on the as the wound was still present, tender. They referred her to the wound center. I asked her to stop putting on topical medication of any kind, kept the wound clean and dry over the weekend and she presented to the office here for follow-up this morning. Examination shows the wound to be actually healing as I think is appropriate. She landed onthe anterior tibia just below the patella, with basically full weight on concrete. Undoubtedly contused the bone, and this was probably more of a crush of the skin than it was simple abrasion. Still a bit of tenderness of the anterior tibia as might be appropriate for a contused bone as we discussed. There is no drainage currently. Will go ahead and get x-ray right tibia to relook at the tibia once again, to make sure there is no findings that would be consistent with developing deeper infection but I am not highly suspicious necessarily of that right now. Hold off on any further antibiotic. We can justcover this with a dry dressing here in the office for now. Otherwise again if there is no concerning findings I would continue observation and expect that there will be very slow resolution to the bone tenderness. We also spent considerable time discussing her diabetes, weight. Weight has been slowly goingback up. She was losing a fair amount for a while but she was also having a lotof nausea during the time of the weight loss, which was at least partly related to the Ozempic. She continues on Ozempic at 0.5 mg currently. I spent a lot oftime discussing dietary nutritional patterns once again. Overall is doing well. Continue new good high-quality diet. I have asked her to really try to curb and cut out any of the energy dense carbohydrates such as wheat products, flour,rice and potatoes for at least the short-term to see if this helps. She is exercising. She does get frustrated because she is not losing additional weightat this point. We discussed perhaps a trial of tirzepatide and she will contacther insurance and see if that is covered under her insurance. Overall 30-minutevisit. Also discussed that perhaps needs to have a regular follow-up with cardiology to consider getting off of atenolol in the future as it could be hampering some of her weight issues. 11/13/24 1612 <Electronically signed by Bhavana garner MD> Date _ Bhavana Rodríguez MD Cosigner Signature: Date (if applicable) CC: ~ [place] [employer] Work Phone: [phone]) 736-391805-28-2025 NoteHNO ID: [id number] Author: CRYSTAL ASHFORD APRN.N[employer]SE [employer]CHOOL Service: ? Author Type: Nurse Practitioner Type: Progress Notes Filed: 11/08/2024 18:53 Note Text: [facility] Subjective Sylvia Mancuso is a 54 year old female. Patient presents with: Derm Problem: R knee x2 weeks, seen 10/30 for same, no improvement Patient presents with wound on right knee that is painful to the touch. Patient has a cement burn on right knee and was here a few weeks ago and treated with doxycycline and topical cream. Patient states that wound has not improved despite treatment. Patient is a diabetic, takes ozempic, and does not monitor sugars at home. Patient reports occasional chills. Denies fevers. The history is provided by the patient. No high school foreign language teacher was used. Review of Systems Constitutional: Positive for chills. Negative for fatigue and fever. Skin: Positive for wound. Neurological: Negative for numbness. PAST MEDICAL HISTORY Diagnosis Date Allergies Cardiac defibrillator in place Cough variant asthma (HCC) Cyst of Bartholin's gland GERD (gastroesophageal reflux disease) History of COVID-19 IBS (irritable bowel syndrome) Pacemaker PMH - PAST MEDICAL HISTORY OF 06/14/2004 Cardiomyopathy PAST SURGICAL HISTORY Procedure Laterality Date APPENDECTOMY age 22 COLONOSCOPY FLX DX W/COLLJ SPEC WHEN PFRMD 03/11/2020 Colonoscopy ESOPHAGOGASTRODUODENOSCOPY TRANSORAL DIAGNOSTIC 03/11/2020 EGD IANDD OF BARTHOLINS GLAND ABSCESS 1999 ICD (ICD) 2010 LAPAROSCOPY SURG CHOLECYSTECTOMY 2005 Cholecystectomy, lap PAST SURGICAL HISTORY OF Left 2005 ankle /screws and plate PAST SURGICAL HISTORY OF ~2014 cervical spine surgery- unsure of what occured- states they tried to make the hole bigger on my spine ALLERGIES Carvedilol, Naproxen, Seasonal Allergies, and Vancomycin MEDICATIONS mupirocin (BACTROBAN) 2 % ointment Apply to affected area three times a day for 10 days. albuterol HFA (PROVENTIL HFA, VENTOLIN HFA) 90 mcg/actuation inhaler Inhale 2 Puffs as instructed every 4 hours as needed for wheezing/shortness of breath. aspirin, enteric coated (ASPIRIN, ENTERIC COATED) 81 mg EC tablet Take 81 mg by mouth once daily. budesonide-formoterol (SYMBICORT) 160-4.5 mcg/actuation inhaler Inhale 2 Puffs as instructed two times a day. potassium chloride (K-TAB) 10 mEq tablet Take 10 mEq by mouth two times a day. benzonatate (TESSALON PERLE) 100 mg capsule Take 2 capsules by mouth three times a day as needed. (Patient not taking: Reported on 07/12/2024) atorvastatin (LIPITOR) 20 mg tablet clobetasol (TEMOVATE) 0.05 % cream APPLY CREAM TOPICALLY TWICE DAILY TO RASH FOR UP TO 2 WEEKS A MONTH NEEDED (Patient not taking: Reported on 08/11/2024) [employer]ner[employer] 14 DAY SENSOR kit as directed. (Patient not taking: Reported on 08/11/2024) furosemide (LASIX) 20 mg tablet Take 1 tablet by mouth every afternoon. OZEMPIC 0.25 mg or 0.5 mg (2 mg/3 mL) pen INJECT 0.25 MG SUBCUTANEOUSLY ONCE EVERY WEEK atenolol (TENORMIN) 25 mg tablet Take 1 tablet by mouth once daily. albuterol HFA (PROVENTIL HFA, VENTOLIN HFA) 90 mcg/actuation inhaler Inhale 2 Puffs as instructed every 4 hours as needed for wheezing/shortness of breath. venlafaxine ER (EFFEXOR XR) 150 mg 24 hr capsule Take 1 capsule by mouth once daily. omeprazole (PRILOSEC) 40 mg capsule Take 1 capsule by mouth once daily MULTIVITAMIN ORAL Take by mouth. FAMILY HISTORY Problem Relation Age of Onset Colon Cancer Mother Lipids Mother Stroke Maternal Grandmother Anesthesia Problems No Family History Blood Clots No Family History Clotting Disorder No Family History Social History Tobacco Use Smoking status: Never Smokeless tobacco: Never Vaping Use Vaping status: Never Used Substance Use Topics Alcohol use: No Drug use: No Objective BP 105/70 Pulse 82 Temp 36.6 ?C (97.8 ?F) Resp 18 Wt 82.5 kg (181 lb 14.1 oz) LMP (LMP Unknown) SpO2 98% BMI 31.22 kg/m? Physical Exam Constitutional: Appearance: Normal appearance. HENT: Head: Normocephalic. Cardiovascular: Rate and Rhythm: Normal rate and regular rhythm. Heart sounds: Normal heart sounds. Pulmonary: Effort: Pulmonary effort is normal. Breath sounds: Normal breath sounds. Musculoskeletal: General: Tenderness and signs of injury present. Right knee: Tenderness present. Skin: General: Skin is warm. Findings: Wound present. Comments: Patient has a wound on right knee that is moist with some granulation. Neurological: Mental Status: She is alert and oriented to person, place, and time. Patient's wound does appear to be improving patient feels that it is not improving at the rate that it should be. Patient concerned it is progressing. Willing to give a wound care consult to patient. {ASSESSMENT/PLAN: 1. Skin burn - ICD9: 949.0, ICD10: T30.0 - Patient consulted to wound center for further workup regarding wound care (more content not included)...[facility]05-28-2025 History of Present illness Narrative* Crystal Ashford APRN.[facility] - 11/08/2024 6:36 PM EDT [facility] Subjective Sylvia Mancuso is a 54 year old female. Patient presents with: Derm Problem: R knee x2 weeks, seen 10/30 for same, no improvement Patient presents with wound on right knee that is painful to the touch. Patient has a cement burn on right knee and was here a few weeks ago and treated with doxycycline and topical cream. Patient states that wound has not improved despite treatment. Patient is a diabetic, takes ozempic, and does not monitor sugars at home. Patient reports occasional chills. Denies fevers. The history is provided by the patient. No high school foreign language teacher was used. Review of Systems Constitutional: Positive for chills. Negative for fatigue and fever. Skin: Positive for wound. Neurological: Negative for numbness. PAST MEDICAL HISTORY Diagnosis Date Allergies Cardiac defibrillator in place Cough variant asthma (HCC) Cyst of Bartholin's gland GERD (gastroesophageal reflux [...] hole bigger on my spine ALLERGIES Carvedilol, Naproxen, Seasonal Allergies, and Vancomycin MEDICATIONS mupirocin (BACTROBAN) 2 % ointment Apply to affected area three times a day for 10 days. albuterol HFA (PROVENTIL HFA, VENTOLIN HFA) 90 mcg/actuation inhaler Inhale 2 Puffs as instructed every 4 hours as needed for wheezing/shortness of breath. aspirin, enteric coated (ASPIRIN, ENTERIC COATED) 81 mg EC tablet Take 81 mg by mouth once daily. budesonide-formoterol (SYMBICORT) 160-4.5 mcg/actuation inhaler Inhale 2 Puffs as instructed two times a day. potassium chloride (K-TAB) 10 mEq tablet Take 10 mEq by mouth two times a day. benzonatate (TESSALON PERLE) 100 mg capsule Take 2 capsules by mouth three times a day as needed. (Patient not taking: Reported on 07/12/2024) atorvastatin (LIPITOR) 20 mg tablet clobetasol (TEMOVATE) 0.05 % cream APPLY CREAM TOPICALLY TWICE DAILY TO RASH FOR UP TO 2 WEEKS A MONTH NEEDED (Patient not taking: Reported on 08/11/2024) Zadby 14 DAY SENSOR kit as directed. (Patient not taking: Reported on 08/11/2024) furosemide (LASIX) 20 mg tablet Take 1 tablet by mouth every afternoon. OZEMPIC 0.25 mg or 0.5 mg (2 mg/3 mL) pen INJECT 0.25 MG SUBCUTANEOUSLY ONCE EVERY WEEK atenolol (TENORMIN) 25 mg tablet Take 1 tablet by mouth once daily. albuterol HFA (PROVENTIL HFA, VENTOLIN HFA) 90 mcg/actuation inhaler Inhale 2 Puffs as instructed every 4 hours as needed for wheezing/shortness of breath. venlafaxine ER (EFFEXOR XR) 150 mg 24 hr capsule Take 1 capsule by mouth once daily. omeprazole (PRILOSEC) 40 mg capsule Take 1 capsule by mouth once daily MULTIVITAMIN ORAL Take by mouth. FAMILY HISTORY Problem Relation Age of Onset Colon Cancer Mother Lipids Mother Stroke Maternal Grandmother Anesthesia Problems No Family History Blood Clots No Family History Clotting Disorder No Family History Social History Tobacco Use Smoking status: Never Smokeless tobacco: Never Vaping Use Vaping status: Never Used Substance Use Topics Alcohol use: No Drug use: No Objective BP 105/70 Pulse 82 Temp 36.6 C (97.8 F) Resp 18 Wt 82.5 kg (181 lb 14.1 oz) LMP (LMP Unknown) SpO2 98% BMI 31.22 kg/m Physical Exam Constitutional: Appearance: Normal appearance. HENT: Head: Normocephalic. Cardiovascular: Rate and Rhythm: Normal rate and regular rhythm. Heart sounds: Normal heart sounds. Pulmonary: Effort: Pulmonary effort is normal. Breath sounds: Normal breath sounds. Musculoskeletal: General: Tenderness and signs of injury present. Right knee: Tenderness present. Skin: General: Skin is warm. Findings: Wound present. Comments: Patient has a wound on right knee that is moist with some granulation. Neurological: Mental Status: She is alert and oriented to person, place, and time. Patient's wound does appear to be improving patient feels that it is not improving at the rate thatit should be. Patient concerned it is progressing. Willing to give a wound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 diagnosis) X one week Worsening Lungs CTA Refilled albuterol inhaler - XR CHEST 2V FRONTAL/LAT-will reach out with results 2. Rhinosinusitis - ICD9: 473.9, ICD10: J32.9 - Will begin treatment with as per antibiotic as written, see orders - The patient should also be given OTC cough and cold meds as needed, warm salt water gargles, throat lozenges and/or OTC throat spray as needed, and nasal saline gtts and suction prn for the first 5-7 days of treatment. - Supportive care with plenty of fluids, rest, and analgesia prn. - Follow up in 3-5 days if symptoms persist or worsen. Brittany Florian APRN.NURSE SCHOOL documented in this encounterUniversity [facility]als [facility]01-29-[facility]25 History of Present illness Narrative* Solomon Jessica RT(R) - 07/12/2024 11:10 AM EST Radiology Service Progress Note PATIENT NAME: Sylvia Mancuso DATE OF SERVICE: July 12, 2024 TIME: 11:22 AM PATIENT IDENTITY VERIFICATION COMPLETED USING TWO (2) IDENTIFIERS: Name and Date of confirmedby patient verbally. FALL SCREENING: Has the patient had 2 falls in the last year or 1 fall with injury or currently using an Ambulatory Assistive Device (Walker, Cane, Wheelchair, Crutches, etc.)? No PATIENT GENDER DATA: Assigned female at . status: : No status:NO. PATIENT RELEVANT IMPLANT DATA REVIEWED: Not Applicable PATIENT PRESENTS WITH AN IMPLANTABLE OR ATTACHED NARROW FABRIC CALENDERER: No RADIOLOGY DEPARTMENT: General X-ray: Exam(s) Completed: Upper Extremity X- Ray(s): Hand, right PERIPHERAL IV DATA: Not applicable SIGNED BY: RT Jennifer(R) July 12, 2024 11:22 AM documented in this encounterUniversity Hospitals [facility]01-29-2025 NoteHNO ID: [id number] Author: SOLOMON JESSICA RT(R) Service: Radiology Author Type: Technologist Type: Progress Notes Filed: 07/12/2024 11:29 Note Text: Radiology Service Progress Note PATIENT NAME: Sylvia Mancuso DATE OF SERVICE: July 12, 2024 TIME: 11:22 AM PATIENT IDENTITY VERIFICATION COMPLETED USING TWO (2) IDENTIFIERS: Name and Date of confirmed by patient verbally. FALL SCREENING: Has the patient had 2 falls in the last year or 1 fall with injury or currently using an Ambulatory Assistive Device (Walker, Cane, Wheelchair, Crutches, etc.)? No PATIENT GENDER DATA: Assigned female at . status: : No status: NO. PATIENT RELEVANT IMPLANT DATA REVIEWED: Not Applicable PATIENT PRESENTS WITH AN IMPLANTABLE OR ATTACHED NARROW FABRIC CALENDERER: No RADIOLOGY DEPARTMENT: General X-ray: Exam(s) Completed: Upper Extremity X-Ray(s): Hand, right PERIPHERAL IV DATA: Not applicable SIGNED BY: RT Jennifer(R) July 12, 2024 11:22 [facility]01-29-2025 NoteHNO ID: [id number] Author: CHARANJIT COKER APRN.NURSE SCHOOL Service: ? Author Type: Nurse Practitioner Type: Progress Notes Filed: 07/12/2024 11:53 Note Text: Subjective HPI HPI Sylvia Mancuso is a 54 year old female who presents today for CC of fall, hand injury 3 days ago. Has tried nothing for relief. Symptoms are worsened by rom of hand. .Patient presents with: Hand Injury: right x 3 days, fell PAST MEDICAL HISTORY Diagnosis Date Allergies Cardiac [...] hole bigger on my spine ALLERGIES Carvedilol, Naproxen, Seasonal Allergies, and Vancomycin MEDICATIONS aspirin, enteric coated (ASPIRIN, ENTERIC COATED) 81 mg EC tablet Take 81 mg by mouth once daily. budesonide-formoterol (SYMBICORT) 160-4.5 mcg/actuation inhaler Inhale 2 Puffs as instructed two times a day. potassium chloride (K-TAB) 10 mEq tablet Take 10 mEq by mouth two times a day. atorvastatin (LIPITOR) 20 mg tablet clobetasol (TEMOVATE) 0.05 % cream APPLY CREAM TOPICALLY TWICE DAILY TO RASH FOR UP TO 2 WEEKS A MONTH NEEDED [employer] 14 DAY SENSOR kit as directed. furosemide (LASIX) 20 mg tablet Take 1 tablet by mouth every afternoon. OZEMPIC 0.25 mg or 0.5 mg (2 mg/3 mL) pen INJECT 0.25 MG SUBCUTANEOUSLY ONCE EVERY WEEK atenolol (TENORMIN) 25 mg tablet Take 1 tablet by mouth once daily. albuterol HFA (PROVENTIL HFA, VENTOLIN HFA) 90 mcg/actuation inhaler Inhale 2 Puffs as instructed every 4 hours as needed for wheezing/shortness of breath. omeprazole (PRILOSEC) 40 mg capsule Take 1 capsule by mouth once daily MULTIVITAMIN ORAL Take by mouth. benzonatate (TESSALON PERLE) 100 mg capsule Take 2 capsules by mouth three times a day as needed. (Patient not taking: Reported on 07/12/2024) venlafaxine ER (EFFEXOR XR) 150 mg 24 hr capsule Take 1 capsule by mouth once daily. FAMILY HISTORY Problem Relation Age of Onset Colon Cancer Mother Lipids Mother Stroke Maternal Grandmother Anesthesia Problems No Family History Blood Clots No Family History Clotting Disorder No Family History Social History Tobacco Use Smoking status: Never Smokeless tobacco: Never Vaping Use Vaping status: Never Used Substance Use Topics Alcohol use: No Drug use: No ROS Objective Blood pressure 110/70, pulse 88, temperature 37.1 ?C (98.7 ?F), resp. rate 16, weight 81.8 kg (180 lb 5.4 oz), SpO2 97%. Physical Exam Constitutional: General: She is not in acute distress. Appearance: She is not toxic-appearing or diaphoretic. HENT: Head: Normocephalic and atraumatic. Pulmonary: Effort: Pulmonary effort is normal. No accessory muscle usage or respiratory distress. Musculoskeletal: Hands: Neurological: Mental Status: She is alert and oriented to person, place, and time. ASSESSMENT/PLAN: 1. Injury of right hand, initial encounter - ICD9: 959.4, ICD10: S69.91XA -no bony abnormality noted on xray -Rest, Ice, Compression, Elevation discussed -discussed use of ibuprofen -follow up with primary care if symptoms persist/worsen in 10-14 days - XR HAND GENERAL 3V PA/LAT/OBL RIGHT IMPRESSION: No acute radiographic abnormalities seen in the right hand. Dictated by : MD Charanjit PEREIRA APRN.[facility]ITALake [facility] History of Present illness Narrative* Charanjit Coker APRN.NURSE SCHOOL - 07/12/2024 10:48 AM EST Images from the original note were not included. Subjective HPI HPI Sylvia Mancuso is a 54 year old female who presents today for CC of fall, hand injury 3 days ago.Has tried nothing for relief. Symptoms are worsened by rom of hand. .Patient presents with: Hand Injury: right x 3 days, fell PAST MEDICAL HISTORY Diagnosis Date Allergies Cardiac [...] hole bigger on my spine ALLERGIES Carvedilol, Naproxen, Seasonal Allergies, and Vancomycin MEDICATIONS aspirin, enteric coated (ASPIRIN, ENTERIC COATED) 81 mg EC tablet Take 81 mg by mouth once daily. budesonide-formoterol (SYMBICORT) 160-4.5 mcg/actuation inhaler Inhale 2 Puffs as instructed two times a day. potassium chloride (K-TAB) 10 mEq tablet Take 10 mEq by mouth two times a day. atorvastatin (LIPITOR) 20 mg tablet clobetasol (TEMOVATE) 0.05 % cream APPLY CREAM TOPICALLY TWICE DAILY TO RASH FOR UP TO 2 WEEKS A MONTH NEEDED [employer]LI 14 DAY SENSOR kit as directed. furosemide (LASIX) 20 mg tablet Take 1 tablet by mouth every afternoon. OZEMPIC 0.25 mg or 0.5 mg (2 mg/3 mL) pen INJECT 0.25 MG SUBCUTANEOUSLY ONCE EVERY WEEK atenolol (TENORMIN) 25 mg tablet Take 1 tablet by mouth once daily. albuterol HFA (PROVENTIL HFA, VENTOLIN HFA) 90 mcg/actuation inhaler Inhale 2 Puffs as instructed every 4 hours as needed for wheezing/shortness of breath. omeprazole (PRILOSEC) 40 mg capsule Take 1 capsule by mouth once daily MULTIVITAMIN ORAL Take by mouth. benzonatate (TESSALON PERLE) 100 mg capsule Take 2 capsules by mouth three times a day as needed. (Patient not taking: Reported on 07/12/2024) venlafaxine ER (EFFEXOR XR) 150 mg 24 hr capsule Take 1 capsule by mouth once daily. FAMILY HISTORY Problem Relation Age of Onset Colon Cancer Mother Lipids Mother Stroke Maternal Grandmother Anesthesia Problems No Family History Blood Clots No Family History Clotting Disorder No Family History Social History Tobacco Use Smoking status: Never Smokeless tobacco: Never Vaping Use Vaping status: Never Used Substance Use Topics Alcohol use: No Drug use: No ROS Objective Blood pressure 110/70, pulse 88, temperature 37.1 C (98.7 F), resp. rate 16, weight 81.8 kg (180 lb5.4 oz), SpO2 97%. Physical Exam Constitutional: General: She is not in acute distress. Appearance: She is not toxic-appearing or diaphoretic. HENT: Head: Normocephalic and atraumatic. Pulmonary: Effort: Pulmonary effort is normal. No accessory muscle usage or respiratory distress. Musculoskeletal: Hands: Neurological: Mental Status: She is alert and oriented to person, place, and time. ASSESSMENT/PLAN: 1. Injury of right hand, initial encounter - ICD9: 959.4, ICD10: S69.91XA -no bony abnormality noted on xray -Rest, Ice, Compression, Elevation discussed -discussed use of ibuprofen -follow up with primary care if symptoms persist/worsen in 10-14 days - XR HAND GENERAL 3V PA/LAT/OBL RIGHT IMPRESSION: No acute radiographic abnormalities seen in the right hand. Dictated by : MD Charanjit PEREIRA APRN.NURSE SCHOOL documented in this encounterUniversity Hospitals [facility]12-18-2024 Evaluation note* Diagnosis Onset Date Resolution Status Admit Date Asthma chronic May 31, 2024 8:10am Atypical chest pain chronic Decem 2023 8:10am Congestive heart failure (CHF) chronic May 31, 024 8:10am Hoarseness acute August 25 7:57am SOB (shortness of breath) acute August 25, 2024 7:57am Asthma chronic August 25 7:57am Atypical chest pain chronic August 25, 2024 7:57am Congestive heart failure (CHF) chronic August 25, 2024 7:57am [facility] Work Phone: [phone] 129-445510-05-2024 NoteHNO ID: [id number] Author: CRYSTAL ASHFORD APRN.SHERITA Service: ? Author Type: Nurse Practitioner Type: Progress Notes Filed: 03/18/2024 15:28 Note Text: Came in with complaints of possible UTI. Patient says she noticed some blood in her urine. Upon exam patient has severe pain over the right and left flank. Did have a second provider come in and assessed the patient at this time patient is being referred to the emergency room for full evaluation due to 8 out of 10 pain bilaterally. Patient was okay with this care plan. Patient will take her self now.[facility] History of Present illness Narrative* Crystal Ashford APRN.CNP - 03/18/2024 3:17 PM EDT Came in with complaints of possible UTI. Patient says she noticed some blood in her urine. Upon exam patient has severe pain over the right and left flank. Did have a second provider come in and assessed the patient at this time patient is being referred to the emergency room for full evaluation due to 8 out of 10 pain bilaterally. Patient was okay with this care plan. Patient will take her self n ow. documented in this encounterUniversity Hospitals [facility]09-27-2024 NoteHNO ID: [id number] Author: CHARANJIT COKER APRN.CNP Service: ? Author Type: Nurse Practitioner Type: Progress Notes Filed: 03/10/2024 09:04 Note Text: Subjective HPI HPI Sylvia Mancuso is a 54 year old female who presents today for CC of cough. This started 2 weeks ago, seen in express care dx uri and OM on 03/01 finished antibiotics. Risk factors hx of asthma. nonsmoker. .Patient presents with: Cough: Chest congestion, x 2 weeks has worsened PAST MEDICAL HISTORY Diagnosis Date Allergies Cardiac [...] hole bigger on my spine ALLERGIES Carvedilol, Naproxen, Seasonal Allergies, and Vancomycin MEDICATIONS aspirin, enteric coated (ASPIRIN, ENTERIC COATED) 81 mg EC tablet Take 81 mg by mouth once daily. budesonide-formoterol (SYMBICORT) 160-4.5 mcg/actuation inhaler Inhale 2 Puffs as instructed two times a day. potassium chloride (K-TAB) 10 mEq tablet Take 10 mEq by mouth two times a day. atorvastatin (LIPITOR) 20 mg tablet clobetasol (TEMOVATE) 0.05 % cream APPLY CREAM TOPICALLY TWICE DAILY TO RASH FOR UP TO 2 WEEKS A MONTH NEEDED [employer] 14 DAY SENSOR kit as directed. furosemide (LASIX) 20 mg tablet Take 1 tablet by mouth every afternoon. OZEMPIC 0.25 mg or 0.5 mg (2 mg/3 mL) pen INJECT 0.25 MG SUBCUTANEOUSLY ONCE EVERY WEEK benzonatate (TESSALON PERLES) 100 mg capsule Take 1 capsule by mouth three times a day as needed for cough. atenolol (TENORMIN) 25 mg tablet Take 1 tablet by mouth once daily. lisinopril 2.5 mg tablet Take 1 tablet by mouth once daily. (Patient taking differently: Take 2.5 mg by mouth once daily. On hold) albuterol HFA (PROVENTIL HFA, VENTOLIN HFA) 90 mcg/actuation inhaler Inhale 2 Puffs as instructed every 4 hours as needed for wheezing/shortness of breath. venlafaxine ER (EFFEXOR XR) 150 mg 24 hr capsule Take 1 capsule by mouth once daily. omeprazole (PRILOSEC) 40 mg capsule Take 1 capsule by mouth once daily MULTIVITAMIN ORAL Take by mouth. predniSONE (DELTASONE) 20 mg tablet Take 2 tablets by mouth once daily for 5 days. benzonatate (TESSALON PERLE) 100 mg capsule Take 2 capsules by mouth three times a day as needed. diclofenac, EC, (VOLTAREN) 75 mg EC tablet Take 1 tablet by mouth twice daily. For pain/inflammation. Take with food. (Patient not taking: Reported on 03/01/2024) gabapentin (NEURONTIN) 300 mg capsule Take 1 capsule by mouth daily at bedtime for 181 days. omeprazole (PRILOSEC) 40 mg capsule Take 1 capsule by mouth twice daily. (Patient not taking: Reported on 03/01/2024) linaclotide (LINZESS) 145 mcg capsule Take 1 capsule by mouth DAILY (6 AM). (Patient not taking: Reported on 03/01/2024) fluticasone-salmeterol HFA (ADVAIR HFA) 115-21 mcg/actuation inhaler Inhale 2 Puffs as instructed twice daily. (Patient not taking: Reported on 03/01/2024) albuterol (PROVENTIL) 2.5 mg /3 mL (0.083 %) nebulizer solution Use 3 mL via nebulizer every 4 hours as needed for wheezing/shortness of breath. Use over 5-15minutes. (Patient not taking: Reported on 03/01/2024) linaCLOtide (LINZESS) 290 mcg capsule Take 1 capsule by mouth DAILY (6 AM). (Patient not taking: Reported on 03/01/2024) dicyclomine (BENTYL) 10 mg capsule Take 1 capsule by mouth three times daily as needed. (Patient not taking: Reported on 03/01/2024) lactulose (DUPHALAC, CONSTULOSE) 20 gram/30 mL solution Take 30 mL by mouth once daily. (Patient not taking: Reported on 03/01/2024) hydrOXYzine HCl (ATARAX) 25 mg tablet Take 1 tablet by mouth every 6 hours as needed for Anxiety. (Patient not taking: Reported on 03/01/2024) FAMILY HISTORY Problem Relation Age of Onset Colon Cancer Mother Lipids Mother Stroke Maternal Grandmother Anesthesia Problems No Family History Blood Clots No Family History Clotting Disorder No Family History Social History Tobacco Use Smoking status: Never Smokeless tobacco: Never Vaping Use Vaping status: Never Used Substance Use Topics Alcohol use: No Drug use: No Review of Systems Constitutional: Negative for fever. HENT: Negative for congestion, ear pain, nosebleeds and sore throat. Respiratory: Positive for cough. Negative for shortness of breath and wheezing. Cardiovascular: Negative for (more content not included)...[facility]09-27-2024 History of Present illness Narrative* Charanjit Coker APRN.[employer] - 03/10/2024 8:44 AM EDT Subjective HPI HPI Sylvia Mancuso is a 54 year old female who presents today for CC of cough. This started 2 weeks ago, seen in express care dx uri and OM on 03/01 finished antibiotics. Risk factors hx of asthma. nonsmoker. .Patient presents with: Cough: Chest congestion, x 2 weeks has worsened PAST MEDICAL HISTORY Diagnosis Date Allergies Cardiac [...] hole bigger on my spine ALLERGIES Carvedilol, Naproxen, Seasonal Allergies, and Vancomycin MEDICATIONS aspirin, enteric coated (ASPIRIN, ENTERIC COATED) 81 mg EC tablet Take 81 mg by mouth once daily. budesonide-formoterol (SYMBICORT) 160-4.5 mcg/actuation inhaler Inhale 2 Puffs as instructed two times a day. potassium chloride (K-TAB) 10 mEq tablet Take 10 mEq by mouth two times a day. atorvastatin (LIPITOR) 20 mg tablet clobetasol (TEMOVATE) 0.05 % cream APPLY CREAM TOPICALLY TWICE DAILY TO RASH FOR UP TO 2 WEEKS A MONTH NEEDED Zadby 14 DAY SENSOR kit as directed. furosemide (LASIX) 20 mg tablet Take 1 tablet by mouth every afternoon. OZEMPIC 0.25 mg or 0.5 mg (2 mg/3 mL) pen INJECT 0.25 MG SUBCUTANEOUSLY ONCE EVERY WEEK benzonatate (TESSALON PERLES) 100 mg capsule Take 1 capsule by mouth three times a day as needed for cough. atenolol (TENORMIN) 25 mg tablet Take 1 tablet by mouth once daily. lisinopril 2.5 mg tablet Take 1 tablet by mouth once daily. (Patient taking differently: Take 2.5 mg by mouth once daily. On hold) albuterol HFA (PROVENTIL HFA, VENTOLIN HFA) 90 mcg/actuation inhaler Inhale 2 Puffs as instructed every 4 hours as needed for wheezing/shortness of breath. venlafaxine ER (EFFEXOR XR) 150 mg 24 hr capsule Take 1 capsule by mouth once daily. omeprazole (PRILOSEC) 40 mg capsule Take 1 capsule by mouth once daily MULTIVITAMIN ORAL Take by mouth. predniSONE (DELTASONE) 20 mg tablet Take 2 tablets by mouth once daily for 5 days. benzonatate (TESSALON PERLE) 100 mg capsule Take 2 capsules by mouth three times a day as needed. diclofenac, EC, (VOLTAREN) 75 mg EC tablet Take 1 tablet by mouth twice daily. For pain/inflammation. Take with food. (Patient not taking: Reported on 03/01/2024) gabapentin (NEURONTIN) 300 mg capsule Take 1 capsule by mouth daily at bedtime for 181 days. omeprazole (PRILOSEC) 40 mg capsule Take 1 capsule by mouth twice daily. (Patient not taking: Reported on 03/01/2024) linaclotide (LINZESS) 145 mcg capsule Take 1 capsule by mouth DAILY (6 AM). (Patient not taking: Reported on 03/01/2024) fluticasone-salmeterol HFA (ADVAIR HFA) 115-21 mcg/actuation inhaler Inhale 2 Puffs as instructed twice daily. (Patient not taking: Reported on 03/01/2024) albuterol (PROVENTIL) 2.5 mg /3 mL (0.083 %) nebulizer solution Use 3 mL via nebulizer every 4 hours as needed for wheezing/shortness of breath. Use over 5- 15minutes. (Patient not taking: Reported on03/01/2024) linaCLOtide (LINZESS) 290 mcg capsule Take 1 capsule by mouth DAILY (6 AM). (Patient not taking: Reported on 03/01/2024) dicyclomine (BENTYL) 10 mg capsule Take 1 capsule by mouth three times daily as needed. (Patient not taking: Reported on 03/01/2024) lactulose (DUPHALAC, CONSTULOSE) 20 gram/30 mL solution Take 30 mL by mouth once daily. (Patient not taking: Reported on 03/01/2024) hydrOXYzine HCl (ATARAX) 25 mg tablet Take 1 tablet by mouth every 6 hours as needed for Anxiety. (Patient not taking: Reported on 03/01/2024) FAMILY HISTORY Problem Relation Age of Onset Colon Cancer Mother Lipids Mother Stroke Maternal Grandmother Anesthesia Problems No Family History Blood Clots No Family History Clotting Disorder No Family History Social History Tobacco Use Smoking status: Never Smokeless tobacco: Never Vaping Use Vaping status: Never Used Substance Use Topics Alcohol use: No Drug use: No Review of Systems Constitutional: Negative for fever. HENT: Negative for congestion, ear pain, nosebleeds and sore throat. Respiratory: Positive for cough. Negative for shortness of breath and wheezing. Cardiovascular: Negative for chest pain. Musculoskeletal: Negative for neck pain. Skin: Negative for itching and rash. Objective Blood pressure 108/74, pulse 87, temperature 36.7 C (98 F), resp. rate 20, weight 74 kg (163 lb 2.3oz), SpO2 99%. Physical Exam Constitutional: General: She is not in acute distress. Appearance: She is not toxic-appearing or diaphoretic. HENT: Head: Normocephalic and atraumatic. Cardiovascular: Rate and Rhythm: Normal rate and regular rhythm. Heart sounds: Normal heart sounds, S1 normal and S2 normal. Pulmonary: Effort: Pulmonary effort is normal. Breath sounds: Normal breath sounds. Lymphadenopathy: Cervical: No cervical adenopathy. Right cervical: No superficial cervical adenopathy. Left cervical: No superficial cervical adenopathy. Neurological: Mental Status: She is alert and oriented to person, place, and time. Gait: Gait is intact. ASSESSMENT/PLAN: 1. Subacute cough - ICD9: 786.2, ICD10: R05.2 (primary diagnosis) Likely post viral cough with asthma flair -use medication as prescribed -follow up if symptoms persist, worsen, change - with pulmonology or pcp - XR CHEST 2V FRONTAL/LAT IMPRESSION: No acute radiographic abnormality. Dictated by : PHOENIX MORGAN MD - PREDNISONE 20 MG TABLET - BENZONATATE 100 MG CAPSULE 2. History of asthma - ICD9: V12.69, ICD10: Z87.09 - PREDNISONE 20 MG TABLET Charanjit Coker APRN.[employer]SE [employer]CHO[employer] documented in this encounter[facility] History of Present illness Narrative* Attila Barcenas RT(R) - 03/10/2024 8:20 AM EDT Radiology Service Progress Note PATIENT NAME: Sylvia Mancuso DATE OF SERVICE: March 10, 2024 TIME: 8:17 AM PATIENT IDENTITY VERIFICATION COMPLETED USING TWO (2) IDENTIFIERS: Name and Date of confirmedby patient verbally. FALL SCREENING: Has the patient had 2 falls in the last year or 1 fall with injury or currently using an Ambulatory Assistive Device (Walker, Cane, Wheelchair, Crutches, etc.)? No PATIENT GENDER DATA: Female. status: : No status: NO. PATIENT RELEVANT IMPLANT DATA REVIEWED: Yes PATIENT PRESENTS WITH AN IMPLANTABLE OR ATTACHED NARROW FABRIC CALENDERER: No RADIOLOGY DEPARTMENT: General X-ray: Exam(s) Completed: Chest X-Ray PERIPHERAL IV DATA: Not applicable SIGNED BY: RT Terry(R) March 10, 2024 8:17 AM documented in this encounterUniversity [facility]als [facility]09-27-2024 NoteHNO ID: [id number] Author: ATTILA BARCENAS RT(Chelle) Service: ? Author Type: Graphics Specialist Type: Progress Notes Filed: 03/10/2024 08:26 Note Text: Radiology Service Progress Note PATIENT NAME: Sylvia Mancuso DATE OF SERVICE: March 10, 2024 TIME: 8:17 AM PATIENT IDENTITY VERIFICATION COMPLETED USING TWO (2) IDENTIFIERS: Name and Date of confirmed by patient verbally. FALL SCREENING: Has the patient had 2 falls in the last year or 1 fall with injury or currently using an Ambulatory Assistive Device (Walker, Cane, Wheelchair, Crutches, etc.)? No PATIENT GENDER DATA: Female. status: : No status: NO. PATIENT RELEVANT IMPLANT DATA REVIEWED: Yes PATIENT PRESENTS WITH AN IMPLANTABLE OR ATTACHED NARROW FABRIC CALENDERER: No RADIOLOGY DEPARTMENT: General X-ray: Exam(s) Completed: Chest X-Ray PERIPHERAL IV DATA: Not applicable SIGNED BY: RT Terry(R) March 10, 2024 8:17 [facility]09-18-2024 Instructions* Patient Instructions* Shana Marquez APRN.[employer]UR[employer] - 03/01/2024 1:15 PM EDT [facility] PATIENT INFO COMMON COLD OVERVIEW The common cold is one of the most frequent illnesses in the [place]. Although most colds aremild and resolve within a short time period, colds cost billions of dollars per year, mostly due tolost time at work and school. COMMON COLD CAUSES The common cold is a group of symptoms caused by one of a large number of viruses. Rhinoviruses cause the greatest number of colds; there are more than 100 different varieties of rhinovirus. Most viruses cause a person to be ill only once. However, due to the large number of viruses, a person can have a cold multiple times throughout his or her lifetime. The average adult experiences two to threecolds per year, while children average 8 to 12 colds per year. Colds are transmitted from [id number]-[id number]. Less often, the virus can be transmitted by touching asurface. Direct contact -- People with colds typically carry the cold virus on their hands. The virus may remain alive on the skin and capable of infecting another person for at least two hours. Thus, if a sick person shakes someone's hand and that individual then touches his eye, nose, or mouth, the virus can be transmitted and later infect that person. Infection from particles on surfaces -- Some cold viruses can live on surfaces (such as a counter top, door handle, or phone) for several hours. Inhaling viral particles -- Droplets containing viral particles can be breathed, coughed, or sneezed into the air by a person with a cold. The virus can be transmitted to others if another person is standing close (a few feet) and the droplet touches that person s eye, nose, or mouth. Covering the mouth while coughing or sneezing greatly reduces this risk. Most cold viruses are not spread by saliva. Thus, kissing itself is not likely to transmit the common cold, but close direct contact can. Colds are not caused by cold climates or being exposed to cold air. However, some types of virus cause more colds during certain seasons (eg, fall and winter versus spring). COMMON COLD SIGNS AND SYMPTOMS The common cold usually causes nasal congestion, runny nose, and sneezing. A sore throat may be present on the first day but usually resolves quickly. If a cough occurs, it generally develops on about the fourth or fifth day of symptoms, typically when congestion and runny nose are usually resolving. COMMON COLD COMPLICATIONS In most cases, colds do not cause serious illness. Most colds last for three to seven days, although many people continue to have symptoms (coughing, sneezing, congestion) for up to two weeks. Some viruses that cause the common cold can also depress the immune system or cause swelling in thelining of the nose or airways; this can, in turn, lead to a new viral infection or bacterial infection. One of the more common complications is sinusitis, which is usually caused by viruses and rarely (about 2 percent of the time) by bacteria. However, it can be difficult to distinguish bacterial sinusitis from sinusitis caused by a cold because the signs and symptoms can be similar Having thick or yellow to green- colored nasal discharge does not mean that bacterial sinusitis has developed; discolored nasal discharge is a normal phase of the common cold. Lower respiratory infections, such as pneumonia or bronchitis, may develop following a cold. Infection of the middle ear, or otitis media, can accompany or follow a cold. The influenza virus, which causes the flu, can also cause features similar to those of a cold. However, the flu usually causes other signs and symptoms (fever, body aches) and is more serious than a cold. COMMON COLD TREATMENT There is no specific treatment for the viruses that cause the common cold. Most treatments are aimed at relieving some of the symptoms of the cold, but do not shorten or cure the cold. Antibiotics are not useful for treating the common cold; antibiotics are only used to treat illnesses caused by bacteria, not viruses. The symptoms of a cold will resolve over time, even without any treatment. The following are treatments that may reduce the symptoms caused by the common cold. People with underlying medical conditions and those who use other echv-iro-nazxrxi or prescription medications should speak with their healthcare provider or pharmacist to ensure that it is safe to use these treatments. Runny nose and nasal congestion -- Runny nose and congestion may improve with the use of decongestants. Pseudoephedrine is a decongestant that can improve nasal congestion. Most drugstores in the [place] carry pseudoephedrine behind the counter, so it must be requested from the pharmacist (a prescription is not required). Antihistamines such as diphenhydramine (Benadryl ) may also help, but can cause side effects such as drowsiness and drying of the eyes, nose, and mouth. Nasal inhalers, including ipratropium bromide (Atrovent , available by prescription) may relieve runny nose and sneezing while cromolyn sodium (NasalCrom , a non-prescription medicine) may relieve runny nose, cough, and sneezing. Other nasal sprays such an oxymetazoline (Afrin and others) can also give temporary relief of nasalcongestion. However, these sprays should never be used for more than two to three days; use for more than three days use can worsen congestion. Nasal irrigation and saline sprays -- Rinsing the nose with a salt-water (saline) solution is called nasal irrigation or nasal lavage. Saline is also available in a standard nasal spray, although this is not as effective as using larger amounts of water in an irrigation. Nasal irrigation is particularly useful for treating drainage down the back of the throat, sneezing, nasal dryness, and congestion. The treatment helps by rinsing out allergens and irritants from thenose. Saline rinses also clean the nasal lining and can be used before applying sprays containing medications, to get a better effect from the medication. Nasal lavage with warmed saline can be performed as needed, once per day, or twice daily for increased symptoms. Nasal lavage carries few risks when performed correctly. Saline nasal sprays and irrigation kits can be purchased [id number]-[id number]. Saline mixes can also be purchased or patients can make their own solution. A variety of devices, including bulb syringes, Neti pots, and bottle sprayers, may be used to perform nasal lavage; instructions for nasal lavage are provided in the table. At least 200 mL (about 3/4cup) of fluid is recommended for each nostril. Sore throat and headache -- Sore throat and headache are best treated with a mild pain reliever such as acetaminophen (Tylenol ) or a non-steroidal anti- inflammatory agent such as ibuprofen or naproxen (Motrin or Aleve ). Cough -- Common cough medicine ingredients include guaifenesin and dextromethorphan; these are often combined with other medications in sfjc-byh-liwenyc cold formulas. However, the benefit of cough medicines is likely to be small to non-existent. In clinical trials, cough suppressants were no more effective in reducing the duration or severity of coughing due to cold than a placebo (a non-drug substitute). Antibiotics -- Antibiotics should not be used to treat an uncomplicated common cold. As noted above, colds are caused by viruses. Antibiotics treat bacterial, not viral infections. Alternative treatments -- Heated, humidified air can improve symptoms of nasal congestion and runnynose, and causes few to no side effects. PREVENTION Hand washing is an essential and highly effective way to prevent the spread of infection. Hands should be wet with water and plain soap, and rubbed together for 15 to 30 seconds. Special attention should be paid to the fingernails, between the fingers, and the wrists. Hands should be rinsed thoroughly, and dried with a single use towel. Alcohol-based hand rubs are a good alternative for disinfecting hands if a sink is not available. Hand rubs should be spread over the entire surface of hands, fingers, and wrists until dry, and may be used several times. These rubs can be used repeatedly without skin irritation or loss of effectiveness. Hand rubs are available as a liquid or wipe in small, portable sizes that are easy to carry in a pocket or handbag. When a sink is available, visibly soiled hands should be washed with soap and water. Hands should be washed before preparing food and eating, and after coughing, blowing the nose, or sneezing. While it is not always possible to limit contact with people who may be infected with a cold, touching the eyes, nose, or mouth after direct contact should be avoided when possible. In addition, tissues should be used to cover the mouth when sneezing or coughing. These used tissues should be disposed of promptly. Sneezing/coughing into the sleeve of one's clothing (at the inner elbow) is another means of containing sprays of saliva and secretions and does not contaminate the hands. SUMMARY The average adult experiences two to three colds per year, while children average 8 to 12 colds peryear. Symptoms of the common cold usually include nasal congestion, runny nose, and sneezing. They typically last for three to seven days, although many people have symptoms (coughing, sneezing, congestion) for up to two weeks. People with colds typically carry the cold virus on their hands, where it can infect another personfor at least two hours. Some cold viruses can live on surfaces (such as a counter top, door handle,or phone) for several hours. Droplets containing viral particles can be breathed, coughed, or sneezed into the air. There is no specific treatment for colds. Treatment may reduce some of the symptoms of the cold, but do not shorten or cure the cold. Antibiotics are not useful for treating the common cold. Hand washing can prevent the spread of infection. Hands should be wet with water and plain soap, and rubbed together for 15 to 30 seconds. Alcohol-based hand rubs are a good alternative for disinfecting hands if a sink is not available documented in this encounterUniversity [facility]09-18-2024 NoteHNO ID: [id number] Author: SHANA MARQUEZ APRN.[employer]URSE [employer]CHO[employer] Service: ? Author Type: Nurse Practitioner Type: Progress Notes Filed: 03/01/2024 13:20 Note Text: This note was created using BitWave. Sasha Mancuso is a 54 year old female. Patient presents with cough for 1 week Nonsmoker. Denies hx of asthma or COPD Tried allergy medications with no relief Review of Systems Constitutional: Negative for chills and fever. HENT: Positive for congestion and ear pain. Negative for sore throat. Respiratory: Positive for cough and shortness of breath. Negative for wheezing. Objective BP 102/60 Pulse 93 Temp 36.6 ?C (97.8 ?F) Resp 18 Wt 72.4 kg (159 lb 9.8 oz) LMP 10/07/2020 SpO2 97% BMI 27.40 kg/m? Physical Exam Constitutional: General: She is not in acute distress. Appearance: Normal appearance. She is not toxic-appearing. HENT: Head: Normocephalic and atraumatic. Right Ear: Ear canal normal. A middle ear effusion is present. Tympanic membrane is erythematous. Tympanic membrane is not bulging. Left Ear: Ear canal normal. A middle ear effusion is present. Tympanic membrane is not erythematous or bulging. Nose: Congestion present. No rhinorrhea. Mouth/Throat: Pharynx: No oropharyngeal exudate or posterior oropharyngeal erythema. Eyes: Conjunctiva/sclera: Conjunctivae normal. Cardiovascular: Rate and Rhythm: Normal rate and regular rhythm. Heart sounds: Normal heart sounds. Pulmonary: Effort: Pulmonary effort is normal. Breath sounds: Normal breath sounds. Lymphadenopathy: Cervical: No cervical adenopathy. Neurological: Mental Status: She is alert. Assessment and Plan ASSESSMENT/PLAN: 1. Acute otitis media, right - ICD9: 382.9, ICD10: H66.91 (primary diagnosis) - Will begin treatment with as per antibiotic as written, see orders - Supportive care with plenty of fluids, rest, and analgesia prn. - Follow up in 3-5 days if symptoms persist or worsen. - AMOXICILLIN 875 MG TABLET 2. Viral URI with cough - ICD9: 465.9, ICD10: J06.9 - Discussed viral etiology and rationale for treatment. - Symptomatic treatment with prn analgesia - Supportive care with fluids and rest - Follow up in 3-5 days if symptoms persist or sooner if worsening of symptoms - BENZONATATE 100 MG CAPSULE Shana Marquez APRN.[facility]09-18-2024 History of Present illness Narrative* Shana Marquez APRN.[facility] - 03/01/2024 1:03 PM EDT This note was created using NoteWriter. Sasha Mancuso is a 54 year old female. Patient presents with cough for 1 week Nonsmoker. Denies hx of asthma or COPD Tried allergy medications with no relief Review of Systems Constitutional: Negative for chills and fever. HENT: Positive for congestion and ear pain. Negative for sore throat. Respiratory: Positive for cough and shortness of breath. Negative for wheezing. Objective BP 102/60 Pulse 93 Temp 36.6 C (97.8 F) Resp 18 Wt 72.4 kg (159 lb 9.8 oz) LMP 10/07/2020 SpO2 97% BMI 27.40 kg/m Physical Exam Constitutional: General: She is not in acute distress. Appearance: Normal appearance. She is not toxic-appearing. HENT: Head: Normocephalic and atraumatic. Right Ear: Ear canal normal. A middle ear effusion is present. Tympanic membrane is erythematous. Tympanic membrane is not bulging. Left Ear: Ear canal normal. A middle ear effusion is present. Tympanic membrane is not erythematousor bulging. Nose: Congestion present. No rhinorrhea. Mouth/Throat: Pharynx: No oropharyngeal exudate or posterior oropharyngeal erythema. Eyes: Conjunctiva/sclera: Conjunctivae normal. Cardiovascular: Rate and Rhythm: Normal rate and regular rhythm. Heart sounds: Normal heart sounds. Pulmonary: Effort: Pulmonary effort is normal. Breath sounds: Normal breath sounds. Lymphadenopathy: Cervical: No cervical adenopathy. Neurological: Mental Status: She is alert. Assessment and Plan ASSESSMENT/PLAN: 1. Acute otitis media, right - ICD9: 382.9, ICD10: H66.91 (primary diagnosis) - Will begin treatment with as per antibiotic as written, see orders - Supportive care with plenty of fluids, rest, and analgesia prn. - Follow up in 3-5 days if symptoms persist or worsen. - AMOXICILLIN 875 MG TABLET 2. Viral URI with cough - ICD9: 465.9, ICD10: J06.9 - Discussed viral etiology and rationale for treatment. - Symptomatic treatment with prn analgesia - Supportive care with fluids and rest - Follow up in 3-5 days if symptoms persist or sooner if worsening of symptoms - BENZONATATE 100 MG CAPSULE Shana Marquez APRN.[employer] documented in this encounterUniversity [facility]als [facility]09-[facility]24 Telephone encounter Note * Telephone Encounter - Dasia Falcon - 02/21/2024 8:24 AM EDT Call from pharmacy requesting refill. Requested Prescriptions Pending Prescriptions Disp Refills atenolol (TENORMIN) 25 mg tablet [Pharmacy Med Name: Atenolol 25 MG Oral Tablet] 90 tablet 3 Sig: Take 1 tablet by mouth once daily. Patient last seen 03/30/22 By: Dr. Herminio Falcon [facility]09-09-2024 Miscellaneous Notes* Telephone Encounter - Dasia Sierra - 02/21/2024 8:24 AM EDT Call from pharmacy requesting refill. Requested Prescriptions Pending Prescriptions Disp Refills atenolol (TENORMIN) 25 mg tablet [Pharmacy Med Name: Atenolol 25 MG Oral Tablet] 90 tablet 3 Sig: Take 1 tablet by mouth once daily. Patient last seen 03/30/22 By: Dr. Herminio Falcon documented in this encounterUniversity [facility]als [facility]06-10-2024 Telephone encounter Note * Telephone Encounter - Dasia Falcon - 11/22/2023 8:39 AM EDT Call from pharmacy requesting refill. Requested Prescriptions Pending Prescriptions Disp Refills atenolol (TENORMIN) 25 mg tablet [Pharmacy Med Name: Atenolol 25 MG Oral Tablet] 25 tablet 3 Sig: Take 1 tablet by mouth once daily. Patient last seen 03/30/22 By: Dr. Herminio Falcon [facility]06-10-2024 Miscellaneous Notes* Telephone Encounter - Dasia Sierra - 11/22/2023 8:39 AM EDT Call from pharmacy requesting refill. Requested Prescriptions Pending Prescriptions Disp Refills atenolol (TENORMIN) 25 mg tablet [Pharmacy Med Name: Atenolol 25 MG Oral Tablet] 25 tablet 3 Sig: Take 1 tablet by mouth once daily. Patient last seen 03/30/22 By: Dr. Herminio Falcon documented in this encounterUniversity Hospitals [facility]05-06-2024 Telephone encounter Note * Telephone Encounter - Dasia Falcon - 10/18/2023 10:52 AM EDT Patient needs an appt. Dasia Falcon [facility]05-06-2024 Miscellaneous Notes* Telephone Encounter - Dasia Sierra - 10/18/2023 10:52 AM EDT Patient needs an appt. Dasia Falcon documented in this encounterUniversity Hospitals [facility]02-08-2024 Miscellaneous Notes* Telephone Encounter - Dasia Falcon - 07/22/2023 9:37 AM EST Call from pharmacy requesting refill. Requested Prescriptions Pending Prescriptions Disp Refills atenolol (TENORMIN) 25 mg tablet [Pharmacy Med Name: Atenolol 25 MG Oral Tablet] 30 tablet 3 Sig: Take 1 tablet by mouth once daily. Patient last seen 03/30/22 By: Dr. Herminio Falcon documented in this encounterUniversity Hospitals [facility]04-20-2023 Miscellaneous Notes* Telephone Encounter - Junior Humphrey RN - 10/01/2022 4:46 PM EDT Spoke with patient and updated them on their device and its MRI conditionality. Patient verbalized understanding. documented in this encounterUniversity Hospitals [facility]03-08-[address] Ramey [facility] August 19, 2022 5:51pm Note Date/Time August 19, 2022 11:2 2am [facility] Medical Records Department [address] [place] [address] Progress Note 08/19/22 1113 MR#: [id number] Acct: [id number] Name: SYLVIA MANCUSO Rep #:[id number] : 1970 52 From: Shante Ramey MD PCP: Dr. Bhavana Rodríguez MD Status:ADM FARZANA Location: AL3 HI910-8 Subjective Subjective Patient seen and examined. She still feels short of breath, but her wheezing is improving. She denied any chest pain, palpitations, dizziness, nausea, vomiting or diarrhea. Review of systems is otheriwse negative. She has remained hemodynamically stable and remain on room air. Objective Data Objective Data Vital Signs: Vital Signs Temp Pulse Resp BP Pulse Ox O2 Del Method 98.7 F 84 18 108/55 L 99 Room Air 08/19/22 09:00 08/19/22 09:00 08/19/22 09:00 08/19/22 09:00 08/19/22 09:00 08/19/22 09:00 Oxygen Delivery Method Room Air Weight: 196 lb 9.6 oz Body Mass Index (BMI) 32.7 Intake & Output: Intake and Output for Last 24 Hours 08/17/22 08/18/22 08/19/22 23:59 23:59 23:59 Intake Total 941.67 / 941.67 866.67 / 866.67 Balance 941.67 / 941.67 866.67 / 866.67 Lab / Micro Data Result Diagrams: 08/18/22 10:33 08/18/22 10:33 Labs: Laboratory Results - last 24 hr 08/18/22 10:33: Sodium 142, Potassium 3.8, Chloride 109 H, Carbon Dioxide 22.0, Anion Gap 11, BUN 15, Creatinine 1.04 H, Estim Creat Clear Calc 57.59, Est GFR (MDRD) Af Amer 72, Est GFR (MDRD) Non-Af 59 L, BUN/Creatinine Ratio 14.4, Glucose 120 H, Calcium 9.7, Troponin I High Sens 3 08/18/22 10:33: B-Natriuretic Peptide 18.3 Micro: Microbiology 08/18/22 10:55 Nasal Secretion SARS-CoV-2 & FLU Antigen (Rapid) - Final Radiography Diagnostic Testing: Radiology Impression Chest X-Ray 08/18/22 11:05 IMPRESSION: Normal x-ray examination of the chest. Electronically Signed: Abel Lundberg MD at 11:47 EST , Physical Exam Const alert, oriented x3 and no apparent distress General Appearance: cooperative HEENT normocephalic, head/scalp atraumatic, hearing grossly normal bilaterally and moist oral mucous membranes Eyes PERRL, EOMs intact bilaterally and conjunctivae normal Neck no lymphadenopathy and supple Resp Resp Narrative: wheezing has resolved. Diminished breath sounds bibasally, no wheezes or crackles. On room air. Cardio regular rate, regular rhythm, S1 normal heart sound, S2 normal heart sound and no murmurs GI normal to inspection, nondistended, normoactive bowel sounds, soft to palpation,non-tender and non-distended Extremity normal to inspection, full ROM and no clubbing, cyanosis or edema Skin General Skin Exam: no breakdown Neuro oriented x3, CN's II-XII intact bilaterally, moves all extremities and no focal motor deficits Motor Exam: strength 5/5 throughout Psych affect normal Assessment & Plan Assessment/Plan (1) Asthma with acute exacerbation: PLAN: Plan #Acute asthma exacerbation * her breathing is improving. Wheezing has improved. Breath sound still diminished * on IV solumedrol * breathing treatment with bronchodilators * titrate oxygen to maintain sats >90% * * #History of arrhythmia: S/p ICD. Stable. #Hypertension: On lisinopril and atenolol #Depression: On venlafaxine DVT prophylaxis: lovenox Code status: full code * Patient counseled extensively about different types of CODE STATUS including full code, DNR CCA and DNR CCA. Patient elects to be full code. * Total [id number]-wxrb time 17 minutes. * Charges/Coding Visit Charges Inpatient E&M: 38580 Subs Hosp L2 08/19/221729 <Electronically signed by Shante Ramey MD> Shante Ramey MD Cosigner Signature (if applicable): CC: ~ Signed ADDENDUM by Dr. Shante Ramey MD on 08/19/22 at 1751 Addendum I spoke to Dr. 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 Her PFTs showed no evidence of obstruction and despite patient's wheezing she has been on room air. She wishes for patient to complete a methacholine challenge test on outpatient basis when she is discharged. We will monitor patient. 08/19/221750 <Electronically signed by Shante hernandez MD> Date _ Shante Ramey MD Cosigner Signature (if applicable): Date cc: ~* Signed [facility] Work Phone: 1(650) 691-787503-07-2023 History and physical note Author Dr. Ramey [facility] August 18, 2022 4:29pm Note Date/Time August 18, 2022 12:3 4pm [facility] Medical Records Department [address] [place] [address] H&P Exam - Hospitalist 08/18/22 1230 MR#: [id number] Acct: [id number] Name: SYLVIA MANCUSO Rep #:[id number] : 1970 52 From: Shante Ramey MD PCP: Dr. Bhavana Rodríguez MD Status:ADM FARZANA Location: [place] [address] HPI - General General Date of Admission: 08/18/22 Date of Service: 08/18/22 Chief Complaint: shortness of breath HPI Narrative SYLVIA MANCUSO, is a 52 F with a PMH as outlined who presents with a complaint of shortness of breath which had been going on for a week. She had been using her meds as outlined and says she went to see her bran mixer today. She had a pulmonary function test today and her bran mixer was concerned about her pulmonary function test so she was sent to the ED. She denied any fever, chills, chest pain, palpitations, dizziness, nausea, vomiting or diarrhea. Review of systems was otherwise negative. VItals in the ED were blood pressure 109/57, pulse rate of 79, respiratory rate of 22 and temperature of 97.5 Fahrenheit. She was saturating at 98% on room air. CBC was unremarkable and chemistry was also largely unremarkable apart from creatinine of 1.04. Initial troponin was 3 and BNP was 18.3. Chest x-ray showed clear lungs with no acute cardiopulmonary process. EKG also showed no acute ST changes. She has been admitted to be managed for shortness of breath likely secondary to acute asthma exacerbation. [facility] Medical History A-fib Allergic rhinitis due to allergen Arthritis Asthma Asthma with acute exacerbation Back injury Back problem Congestive heart failure (CHF) DDD (degenerative disc disease), lumbar Excessive daytime sleepiness Heart disease ICD (implantable cardioverter-defibrillator) in place Nonischemic cardiomyopathy Primary snoring Home Medications lisinopril 2.5 mg tablet 2.5 mg PO QHS BP 10/03/15 [History Last Taken 08/17/22] atenolol 25 mg tablet (Tenormin) 25 mg PO QHS heart 04/26/18 [History Last Taken 08/17/22] diclofenac sodium 75 mg tablet,delayed release 75 mg PO BID PRN PRN Pain 04/26/18 [History Last Taken Unknown] hydroxyzine HCl 25 mg tablet 25 mg PO Q6H PRN PRN Anxiety 05/02/19 [History Last Taken Unknown] omeprazole 40 mg capsule,delayed release 40 mg PO BID Gerd 10/29/21 [History Last Taken 08/17/22] venlafaxine 150 mg tablet,extended release 24 hr 150 mg PO QHS mood 06/04/22 [History Last Taken 08/17/22] albuterol sulfate 1.25 mg/3 mL solution for nebulization 2.5 mg (6 mL) inhalation TID-QID PRN shortness of breath or wheezing 30 days #90 mL 07/28/22 [Rx Last Taken 08/18/22] albuterol sulfate 90 mcg/actuation aerosol inhaler 1 - 2 puff inhalation Q4H PRNPRN Wheezing ##1 07/28/22 [Rx Last Taken 08/17/22] ipratropium bromide 21 mcg (0.03 %) nasal spray 2 spray intranasal BID-TID PRN allergy symptoms #30 mL 07/28/22 [Rx Last Taken 08/18/22] fluticasone propionate 115 mcg-salmeterol 21 mcg/actuation HFA inhaler (Advair HFA) puff inhalation BID sob 08/18/22 [History Last Taken 08/18/22] meloxicam 7.5 mg tablet 7.5 mg PO LUNCH pain 08/18/22 [History Last Taken Unknown] tizanidine 4 mg tablet 4 mg PO QHS pain 08/18/22 [History Last Taken 08/17/22] Allergy/AdvReac Type Severity Reaction Status Date / Time naproxen Allergy Hives Verified 08/18/22 10:16 vancomycin Allergy Rash Verified 08/18/22 10:16 carvedilol AdvReac Upset Verified 08/18/22 10:16 Stomach Family History Other Arthritis Bladder cancer Cancer Colon cancer Diabetes High cholesterol Hypertension Skin cancer Surgical History History of ankle surgery History of appendectomy History of cholecystectomy History of neck surgery Status post biventricular pacemaker Social History Smoking Status: Never smoker alcohol intake: never substance use type: does not use ROS Constitutional Constitutional: Reports fatigue, malaise and weakness; Denies anorexia, chills or fever(s) Eyes Eyes: Denies change in vision ENT HEENT: Denies dysphagia, headache(s) or sore throat Cardiovascular Cardiovascular: Reports dyspnea on exertion; Denies chest pain, edema, lightheadedness, orthopnea, palpitations, paroxysmal nocturnal dyspnea, rapid heart rate or syncope Respiratory/Chest Respiratory/Chest: Reports cough, dyspnea, shortness of breath at rest, shortness of breath with exertion and wheezing; Denies excessive phlegm production, hemoptysis or productive cough Gastrointestinal Gastrointestinal: Denies abdominal pain, constipation, diarrhea, nausea or vomiting Genitourinary Genitourinary: Denies burning urination or dysuria Musculoskeletal Musculoskeletal: Denies arthralgias Neurologic Neurologic: Denies confusion, dizziness, focal weakness, headache(s), seizures or syncope Psychiatric Psychiatric: Denies anxiety Endocrine Endocrinology: Denies change in body appearance Vital Signs Vital Signs Vital Signs: 08/18/22 10:13 08/18/22 10:23 08/18/22 10:23 Temperature 97.5 F L 98.4 F 98.4 F Temperature Source Temporal Oral Oral Pulse Rate 85 79 79 Respiratory Rate 22 H 20 H 20 H Respiratory Effort Blood Pressure 111/71 108/64 108/64 Blood Pressure Mean 84 78 78 Pulse Ox 100 100 100 Oxygen Delivery Method Room Air Room Air Room Air 08/18/22 10:28 08/18/22 11:24 08/18/22 11:16 Temperature 97.5 F L 97.5 F L Temperature Source Oral Oral Pulse Rate 79 79 Respiratory Rate 22 H 22 H Respiratory Effort Labored Accessory Muscle Use Blood Pressure 109/57 L 109/57 L Blood Pressure Mean 74 74 Pulse Ox 98 96 Oxygen Delivery Method Room Air Room Air Room Air Weight Weight: 207 lb 5.71 oz Body Mass Index (BMI) 34.4 Physical Exam Const alert, oriented x3 and no apparent distress General Appearance: cooperative HEENT normocephalic, head/scalp atraumatic, hearing grossly normal bilaterally and moist oral mucous membranes Mouth: oral and palatal mucosa normal Eyes PERRL, EOMs intact bilaterally and conjunctivae normal Neck no lymphadenopathy and supple Resp Resp Narrative: patient mildly tachypneic, bilateral wheezing and rhonchi in all lung sarabia; nocrackles. On room air. Cardio regular rate, regular rhythm, S1 normal heart sound, S2 normal heart sound and no murmurs GI normal to inspection, nondistended, normoactive bowel sounds, soft to palpation,non-tender and non-distended Extremity normal to inspection, full ROM and no clubbing, cyanosis or edema Neuro oriented x3, CN's II-XII intact bilaterally, moves all extremities and no focal motor deficits Motor Exam: strength 5/5 throughout Psych affect normal Results Lab / Micro Data Result Diagrams: 08/18/22 10:33 08/18/22 10:33 Labs: Laboratory Results - last 24 hr 08/18/22 10:33: WBC 7.0, RBC 5.02, Hgb 13.7, Hct 43.1, MCV 85.9, MCH 27.3, MCHC 31.8 L, RDW Std Deviation 46.5 H, RDW Coeff of Irma 15.1 H, Plt Count 229, MPV 10.1, Immature Gran % (Auto) 0.300, Neut % (Auto) 68.4, Lymph % (Auto) 24.8, [place] % (Auto) 4.9, Eos % (Auto) 1.0, Baso % (Auto) 0.6, Absolute Neuts (auto) 4.8, Absolute Lymphs (auto) 1.73, Nucleated RBC % 0 08/18/22 10:33: Sodium 142, Potassium 3.8, Chloride 109 H, Carbon Dioxide 22.0, Anion Gap 11, BUN 15, Creatinine 1.04 H, Estim Creat Clear Calc 57.59, Est GFR (MDRD) Af Amer 72, Est GFR (MDRD) Non-Af 59 L, BUN/Creatinine Ratio 14.4, Glucose 120 H, Calcium 9.7, Troponin I High Sens 3 08/18/22 10:33: B-Natriuretic Peptide 18.3 Micro: Microbiology 08/18/22 10:55 Nasal Secretion SARS-CoV-2 & FLU Antigen (Rapid) - Final Radiology Impression Chest X-Ray 08/18/22 11:05 IMPRESSION: Normal x-ray examination of the chest. Electronically Signed: Abel Lundberg MD at 11:47 EST , Assessment & Plan Assessment/Plan (1) Asthma with acute exacerbation: PLAN: Plan #Acute asthma exacerbation * She states she was recently diagnosed with asthma. He has been short of breath about a week and has progressively worsened. She has associated wheezing. * She went see her bran mixer today and was found to have abnormal PFT's and sent to the ED. * Has bilateral wheezing but chest x-ray showed no acute cardiopulmonary process. * Started on IV Solu-Medrol 40 mg every 8. Breathing treatments of bronchod ilators. * Titrate oxygen as needed to maintain saturation above 90%. Currently on room air. * #History of arrhythmia: S/p ICD. Stable. #Hypertension: On lisinopril and atenolol #Depression: On venlafaxine DVT prophylaxis: lovenox Code status: full code * Patient counseled extensively about different types of CODE STATUS including full code, DNR CCA and DNR CCA. Patient elects to be full code. * Total ulcr-eu-noai time 17 minutes. * Total time spent on seeing patient and evaluating patient, discussion with ED doctor, discussion of plan with patient, nursing and ancillary staff, reviewing chart and documentation in the EMR: 55 minutes. Charges/Coding Visit Charges Inpatient E&M: 01674 Init Hosp L2 Procedures Hospitalists Procedures: 41204 Advncd Care Plan 30 Min 08/18/22 1629 <Electronically signed by Shante Ramey MD> Cosigner Signature (if applicable): CC: Dr. Bhavana Rodríguez MD; Dr. Shante Ramey MD~ Signed [facility] Work Phone: 1(344) 230-989203-07-[address] Dobbs [facility] August 18, 2022 12:37pm Note Date/Time August 18, 2022 10:3 4am [facility] Medical Records Department [address] [place] [address] Emergency Department Summary 08/18/22 MR#: [id number] Acct: [id number] Name: SYLVIA MANCUSO Rep #:[id number] : 1970 52 From: Naresh Dobbs MD PCP: Dr. Bhavana Rodríguez MD Status:REG ER Location: ED HPI History of Present Illness Chief Complaint: Shortness of Breath Narrative Narrative: 52-year-old female, past medical history of asthma, cardiomyopathy with pacemaker for left bundle branch block, CHF, presents from Dr. Schafer's office with need for admission. She states that she has been having problems with shortness of breath and dyspnea for the last week. She has been using her medications as directed. She had an aerosolized treatment in the office today. She states that her bran mixer was concerned about her PFTs, that were low, and requires admission. She has not been put on steroids yet. She states she had a similar episode like this last month. No fevers or chills, no leg swelling. She presents because of the shortness of breath that has steadily been increasing over the last week. She is coughing. [facility] Medical History A-fib Allergic rhinitis due to allergen Arthritis Asthma Asthma with acute exacerbation Back injury Back problem Congestive heart failure (CHF) DDD (degenerative disc disease), lumbar Excessive daytime sleepiness Heart disease ICD (implantable cardioverter-defibrillator) in place Nonischemic cardiomyopathy Primary snoring Home Medications lisinopril 2.5 mg tablet 2.5 mg PO DAILY 10/03/15 [History Last Taken 09/12/15] atenolol 25 mg tablet (Tenormin) 25 mg PO DAILY 04/26/18 [History Last Taken Unknown] diclofenac sodium 75 mg tablet,delayed release 75 mg PO BID PRN PRN Pain 04/26/18 [History Last Taken Unknown] gabapentin 300 mg capsule 300 mg PO QHS 12/28/18 [History Last Taken Unknown] hydroxyzine HCl 25 mg tablet 25 mg PO Q6H PRN PRN Anxiety 05/02/19 [History Last Taken Unknown] linaclotide 290 mcg capsule (Linzess) 290 mcg PO DAILY 10/29/21 [History Last Taken Unknown] omeprazole 40 mg capsule,delayed release 40 mg PO BID 10/29/21 [History Last Taken Unknown] venlafaxine 150 mg tablet,extended release 24 hr 150 mg PO DAILY 06/04/22 [History Last Taken Unknown] albuterol sulfate 1.25 mg/3 mL solution for nebulization 2.5 mg (6 mL) inhalation TID-QID PRN shortness of breath or wheezing 30 days #90 mL 07/28/22 [Rx Last Taken Unknown] albuterol sulfate 90 mcg/actuation aerosol inhaler 1 - 2 puff inhalation Q4H PRNPRN Wheezing ##1 07/28/22 [Rx Last Taken Unknown] budesonide-formoterol HFA 160 mcg-4.5 mcg/actuation aerosol inhaler (Symbicort) 2 puff inhalation BID #10.2 grams 07/28/22 [Rx Last Taken Unknown] ipratropium bromide 21 mcg (0.03 %) nasal spray 2 spray intranasal BID-TID PRN allergy symptoms #30 mL 07/28/22 [Rx Last Taken Unknown] Allergy/AdvReac Type Severity Reaction Status Date / Time naproxen Allergy Hives Verified 08/18/22 10:16 vancomycin Allergy Rash Verified 08/18/22 10:16 carvedilol AdvReac Upset Verified 08/18/22 10:16 Stomach Family History Other Arthritis Bladder cancer Cancer Colon cancer Diabetes High cholesterol Hypertension Skin cancer Surgical History History of ankle surgery History of appendectomy History of cholecystectomy History of neck surgery Status post biventricular pacemaker Social History Smoking Status: Never smoker alcohol intake: never substance use type: does not use ROS ROS ED ROS Narrative Constitutional: No fever, no chills. HEENT: No sore throat. No neck pain. No loss of vision. No rhinorrhea. Cardiovascular: No chest pain. No palpitations. No pedal edema. Respiratory: Positive cough, increasing shortness of breath. Abdominal: No abdominal pain. No nausea. No vomiting. Genitourinary: No dysuria. No hematuria. Musculoskeletal: No myalgias. No arthralgias. Neurologic: No headaches. No dizziness. No lightheadedness. Skin: No rash. No change in color. Psychiatric: No depression. No anxiety. EXAM Physical Exam Narrative Exam Narrative: Afebrile. Vital signs noted. HEENT: Normocephalic. Atraumatic. PERRL, EOMI. Neck soft and supple. No pointtenderness or step off. Cardiovascular: Regular rate and rhythm. No murmurs, rubs, or gallops appreciated. Respiratory: Positive tachypnea. Moving a fair amount of air. Positive expiratory wheezing. Gastrointestinal: Abdomen soft, nontender, with normoactive bowel sounds. No rebound or guarding. Neurological: Awake. Alert. Nonfocal, nonlateralizing. Skin: No rash. Normal color. No pallor. Musculoskeletal: No pedal edema. Full range of motion extremities. Const Vital Signs: 08/18/22 10:13 08/18/22 10:23 08/18/22 10:23 Temperature 97.5 F L 98.4 F 98.4 F Temperature Source Temporal Oral Oral Pulse Rate 85 79 79 Respiratory Rate 22 H 20 H 20 H Respiratory Effort Blood Pressure 111/71 108/64 108/64 Blood Pressure Mean 84 78 78 Pulse Ox 100 100 100 Oxygen Delivery Method Room Air Room Air Room Air 08/18/22 10:28 08/18/22 11:24 08/18/22 11:16 Temperature 97.5 F L 97.5 F L Temperature Source Oral Oral Pulse Rate 79 79 Respiratory Rate 22 H 22 H Respiratory Effort Labored Accessory Muscle Use Blood Pressure 109/57 L 109/57 L Blood Pressure Mean 74 74 Pulse Ox 98 96 Oxygen Delivery Method Room Air Room Air Room Air MDM MDM MDM Narrative Medical decision making narrative: While her pulse ox is 100% on room air currently, looking at her PFTs, she has alow FVC and FEV1. Comprehensive work-up will be pursued. She has just receivedan aerosolized treatment. She will be administered methylprednisolone 125 mg intravenously. I will obtain an EKG and laboratory work. EKG was obtained and interpreted by myself which demonstrates paced rhythm at 78bpm without acute ST changes or ectopy. There is no significant change from an EKG due to April 27, 2022. I reviewed her outpatient PFTs which show a lowerthan normal FVC and FEV1. Chest x-ray interpreted by myself shows no acute process. I reviewed the radiology report which confirms this. In review of herlaboratory work, she has a normal white count of 7.0, hemoglobin normal at 13.7,so anemia is not the cause of her shortness of breath. Review of her electrolyte panel shows normal sodium of 142, normal potassium of 3.8, chloride slightly elevated at 109. High-sensitivity troponin is 3, so I do not think that she is short of breath from cardiac ischemia. Additionally, her BNP is normal at 18.3, so I do not feel that she is short of breath from CHF. At this point in time, given her abnormal pulmonary function tests, she still felt shortof breath so she was given a DuoNeb aerosolized treatment. I discussed the patient with Dr. Ramey for observation on the general medical floor. Patient isin stable condition. History & Record Review Discussion w/independent historian: Patient Additional record(s) reviewed:: Prior ED visit Lab Data Attestation: I reviewed the patient's lab results. Labs: Laboratory Results - last 24 hr 08/18/22 08/18/22 08/18/22 10:33 10:33 10:33 WBC 7.0 RBC 5.02 Hgb 13.7 Hct 43.1 MCV 85.9 MCH 27.3 MCHC 31.8 L RDW Std Deviation 46.5 H RDW Coeff of Irma 15.1 H Plt Count 229 MPV 10.1 Immature Gran % (Auto) 0.300 Neut % (Auto) 68.4 Lymph % (Auto) 24.8 [place] % (Auto) 4.9 Eos % (Auto) 1.0 Baso % (Auto) 0.6 Absolute Neuts (auto) 4.8 Absolute Lymphs (auto) 1.73 Nucleated RBC % 0 Sodium 142 Potassium 3.8 Chloride 109 H Carbon Dioxide 22.0 Anion Gap 11 BUN 15 Creatinine 1.04 H Estim Creat Clear Calc 57.59 Est GFR (MDRD) Af Amer 72 Est GFR (MDRD) Non-Af 59 L BUN/Creatinine Ratio 14.4 Glucose 120 H Calcium 9.7 Troponin I High Sens 3 B-Natriuretic Peptide 18.3 Radiography Diagnostic Testing: Clinical Impression(s) from Imaging Studies Chest X-Ray 08/18/22 11:05 IMPRESSION: Normal x-ray examination of the chest. Electronically Signed: Abel Lundberg MD at 11:47 EST , Discharge Plan Dx/Rx/DC Orders Clinical Impression: Asthma with acute exacerbation, History of cardiomyopathy, Shortness of breath,Abnormal PFTs Disposition Disposition: Acute Care Hospital [facility] What to do if you have Problems For any increased pain, shortness of breath, bleeding, nausea or vomiting, chestpain, or any unexpected problems, contact your Primary Care Provider. Call [facility] ([phone]) or report to the closest Emergency Room. Call 911 if necessary. 08/18/22 1237 <Electronically signed by Naresh Dobbs MD> Cosigner Signature (if applicable): CC: Dr. Derek Schafer MD; Dr. Bhavana Rodríguez MD ~ Signed [facility] Work Phone: [phone]) 882-153203-07-2023 Procedure [facility] 07-20-2022 Miscellaneous Notes* Telephone Encounter - Dasia Falcon - 07/20/2022 10:55 AM EST Call from pharmacy requesting refill. Requested Prescriptions Pending Prescriptions Disp Refills lisinopril 2.5 mg tablet 90 tablet 3 Sig: Take 1 tablet by mouth once daily. atenolol (TENORMIN) 25 mg tablet 90 tablet 3 Sig: Take 1 tablet by mouth once daily. Patient last seen 10/14/20 By: Amanda Falcon documented in this encounterUniversity Hospitals [facility]11-16-2022 History of Present illness Narrative* Bibiana Field APRN.SHERITA - 04/29/2022 11:00 AM EST This is a 52 year old female who presents today with: No chief complaint on file. HISTORY OF PRESENT ILLNESS: Sylvia Mancuso is a 52 year old female. No chief complaint on file. HOSPITAL/ER FOLLOW UP: Reason for visit: Cough Which facility: [facility] ER Date of visit: 04/27/2022 Diagnosis: Bronchitis [...] the floor with her head in her lap,breathing quickly. Refers that she has been feeling like this for several days which led her to go to the ER. Still taking Z-Mandeep. Refers that she has difficulty catching breath. Requesting to go backto ER by EMS at this time. PAST [...] F) (Left Tympanic) Resp 28 LMP 10/07/2020 [id number]% PHYSICAL EXAM: General Appearance: Well appearing, alert, [...] effects were discussed and patient voices understanding. Bibiana Field APRN.SHERITA This note was partially generated using AdaptiveBlue voice recognition system. Note was reviewed for accuracy. There may be minor misspellings or grammar miscues with AdaptiveBlue voice recognition. documented in this encounterUniversity Hospitals [facility]11-07-2022 Hospital Discharge instructions Patient Education 04/20/2022 12:23:17 [...] (Motrin, Advil) to control fever or pain, unlessanother pain medicine was prescribed. [NOTE: If you [...] loosen secretions in the nose and lung. 5.Ncbt-igd-ollolao cold medicines will not shorten the length [...] pain, ear pain or a stiff neck 9147-7[address] [employer]. [address] [place] [address]. All rights reserved. This information is not intended as a substitute for professional medical care. Always follow yourhealthcare professional's instructions. Follow Up Care 04/20/2022 10:52:59 With:YANIRA LYONS MD Address: [address] [place] [address]- When:3-5 days [facility] 11-07-2022 Note Discharge Instructions Thank you for allowing [facility] to assist you with your healthcare needs. The following is importantdischarge information regarding your hospital visit. Diagnosis from Today's Visit Bronchitis Chest pain with deep breathing What to Do Next Instructions from Your Care Team No qualifying data available. Post Acute Orders No qualifying data available. You Need to Schedule the Following Appointments Follow Up with YANIRA LYONS MD When Within 3-5 days Where: [address] [place] [address]- Allergies Coreg naproxen vancomycin Medications Please ask your primary doctor or pharmacist before taking any other medication not listed, including over the counter drugs, herbal medications, vitamins and or supplements as they may interact withyour home medications. What How Much When Why Instructions Last Dose New codeine-guaifenesin (codeine- guaifenesin 10 mg-100 mg/ 5 mL oral syrup) 10 Milliliter by mouth Every 6 hours as needed for as needed for cough Bronchitis Duration: 3 Days Printed Prescription Unchanged acetaminophen-hydrocodone ([place] 325- 5 mg oral tablet) 1 tab(s) [...] codeine and guaifenesin (JOSEY jimenez and karen ISLAS a sin) Allfen CD, Cheracol with Codeine, Cheratussin [...] breast milk and may cause drowsiness, breathing problems,or in a nursing baby. Do not breast-feed. [...] doses. Never share this medicine with another person,especially someone with a history of drug abuse or addiction. MISUSE OF NARCOTIC MEDICINE CAN CAUSEADDICTION, OVERDOSE, OR , especially in a child or other person using the medicine without a prescription. Selling or giving away codeine is against the law. Measure liquid medicine with the dosing syringe provided, or with a special dose-measuring spoon ormedicine cup. If you do not have a [...] Poison Help line at . A codeine overdosecan be fatal, especially in a child or other person using the medicine without a prescription. Overdose symptoms may include slow breathing and heart rate, severe drowsiness, muscle weakness, cold and clammy skin, pinpoint pupils, and fainting. What should I avoid while taking codeine and guaifenesin? This medicine may impair your thinking or reactions. Avoid driving or operating machinery until youknow how this medicine will affect you. Dizziness [...] older adults and those who are overweight, malnourished,or debilitated. Common side effects may include: constipation; or mild drowsiness. This is not a complete list of side effects and others may occur. Call your doctor for medical advice about side effects. You may report side effects to FDA at 9-706-AAT-2687. What other drugs will affect codeine and [...] with codeine and guaifenesin, including prescription and rpbz-mqn-rkrsbti medicines, vitamins, and herbal products. Tell your [...] to ensure that the information provided by [employer]. ('[employer]') is accurate, up-to-date, and complete, but no guarantee is made to that effect. Drug information contained herein may be time sensitive. [employer] information has been compiled for use by healthcare practitioners and consumers in the [place] and therefore [employer] does not warrant that uses outside of the [place] are appropriate, unless specifically indicated otherwise. [employer] drug information does not endorse drugs, diagnose patients or recommend therapy. [employer] drug information isan informational resource designed to assist licensed healthcare practitioners in caring for their p atients and/or to serve consumers viewing this service as a supplement to, and not a substitute for, the expertise, skill, knowledge and judgment of healthcare practitioners. The absence of a warningfor a given drug or drug combination in no way should be construed to indicate that the drug or drug combination is safe, effective or appropriate for any given patient. [employer] does not assume any responsibility for any aspect of healthcare administered with the aid of information [employer] provides. The information contained herein is not intended to cover all possible uses, directions, precautions, warnings, drug interactions, allergic reactions, or adverse effects. If you have questions about the drugs you are taking, check with your doctor, nurse or pharmacist. Copyright 8777-5581 [employer]. Version: 8.02. Revision Date: 06/28/2017. Education Materials [...] your doctor before using these medicines.] (Aspirin shouldnever be used in anyone under 18 years [...] secretions in the nose and lung. 5. Mgra-jig-kvflkwy cold medicines will not shorten the length [...] pain, ear pain or a stiff neck 5028-8263 [employer]. [address] [place] [address], [place] [address]. All rights reserved. This information is not intended as a substitute for professional medical care. Always follow yourhealthcare professional's instructions. Additional Information VACCINATE! IT SAVES LIVES! Members of the community who have not yet received the COVID-19 vaccine and would like to receive it can visit one of [facility] vaccine clinics. There are many vaccine clinic locations within the [facility]. For locations and available times, please visit [email or web address]. It is important to note that some COVID mobile vaccine clinics are held outdoors and may be canceled in rainy orstormy conditions. To learn more about pediatric vaccinations (ages 5-11), we invite you to visit the [facility] webpage. [email or web address] learn more about the COVID-19 vaccine, we invite you to visit the [facility] website for a list of frequently asked questions. [email or web address] [facility] Patient Portal Access Instructions: Stay connected with your healthcare team and access your personal medical information anytime with the [facility] Patient Portal. If you would like a full copy of your medical records please contact the [facility] Medical Records Department Wednesday through Wednesday between 8a.m. and 4:30p.m. Please follow the directions below to access the portal: 1.Access the email account you provided upon registration to the hospital.2.Look for an invitation email from [facility].3.Open the email and access the invitation link: Accept Invitation to [facility].Fill in the required sarabia to create your account. Sign into [email or web address] with your username and password that you [...] you will allow to register on the [facility] Patient Portal for access to your information. You can also access the [facility] Patient Portal on the [employer] de. Simply click on Health Records under [employer] and then click on the [employer] logo. HOW TO SAFELY DISPOSE OF PRESCRIPTION MEDICATIONS Please use one of the following methods to safely dispose of your unused medications. 1.Use a drug disposal kit: the drug disposal pouch allows you to safely discard your old and unuseddrugs. Ask your nurse to give you one when you are discharged.2.Visit a local take-back location: Many local pharmacies and police departments have programs that collect old and unwanted prescriptiondrugs. Call your local pharmacy or go to http://HitMeUp.Iptune/5S6Cy5g to find one close to you.3.Make use of household items: Use cat litter or old coffee grounds to dispose medications if other options arenot available. Mix your drugs with these household products, seal them in an airtight container andthrow it into the garbage. Call [facility]: [phone] to be sure your drugs can be [...] drowsiness, such as benzodiazepines, also known as benzos,including diazepam and alprazolam, muscle relaxants or sleep aids. Never sell or share prescriptionopioids. This is illegal. Store opioids in a secure place and out of reach of others (including children, family, friends and visitors). The last page(s) of this document has been signed and retained as a CHART COPY Signatures Patient Education Materials BRONCHITIS, No Abx (Adult) Medication Leaflets codeine and guaifenesin My discharge plan and instructions have been reviewed and explained to me and I,BLOUGH, SYLVIA understand my current condition and have read and understand these discharge instructions. I have received a written copy of the plan/instructions. If I have questions, I am aware that I should contact my d octor. Patient/Forensic Examiner Signature: Date/Time: Relationship to Patient: Witness Name/Signature: Date/Time: [facility]11-07-2022 Note ORIGINAL EXAMINATION: ONE XRAY VIEW OF [...] 12:15:32 PM Ordering Provider: MARY ALICE FOREMAN [facility]11-07-2022 SARS-CoV-2 (COVID-19) RNA AMY+probe Ql (Nph)Negative *NA* (04/20/22 11:47 AM)AO Auto Urine [id number] Note ORIGINAL EXAMINATION: ONE XRAY VIEW OF [...] 12:15:32 PM Ordering Provider: MARY ALICE FOREMAN [facility]07-27-2022 History of Present illness Narrative* Alcira Bhandari Ma - 01/07/2022 12:11 PM EDT Scan on 01/07/2022 1:32 AM by External Provider: Miscellaneous Clinical Documents [facility] ER report Alcira Bhandari Ma documented in this encounterUniversity Hospitals [facility]06-20-2022 Miscellaneous Notes* Telephone Encounter - Jennifer Farfan LPN - 12/01/2021 8:11 AM EDT Patient phones requesting refills as follows: Pending Prescriptions Disp Refills ALBUTEROL SULFATE HFA 90 MCG/ACTUATION AEROSOL INHALER 1 Each 3 Sig: Inhale 2 Puffs as instructed every 6 hours as needed for wheezing/shortness of breath. KYARA: No Please review and advise. Jennifer Farfan LPN documented in this encounterUniversity Hospitals [facility]aut [facility]06-06-2022 Miscellaneous Notes* Telephone Encounter - Love Carrillo MA - 11/17/2021 1:11 PM EDT The following approved medication requests have been transmitted electronically. Signed Prescriptions Disp Refills diclofenac, EC, (VOLTAREN) 75 mg EC tablet 60 tablet 5 Sig: Take 1 tablet by mouth twice daily. For pain/inflammation. Take with food. KYARA: No Authorizing Provider: YANIRA LYONS MA * Telephone Encounter - Yanira Lyons MD - 11/17/2021 11:38 AM EDT OK to refill as ordered Yanira Lyons MD * Telephone Encounter - Gaby Ochoa LPN - 11/17/2021 11:32 AM EDT Patient phones requesting refills as follows: Pending Prescriptions Disp Refills DICLOFENAC SODIUM 75 MG TABLET,DELAYED RELEASE 60 tablet 5 Sig: Take 1 tablet by mouth twice daily. For pain/inflammation. Take with food. KYARA: No FATIMAH-08/18/21 Labs-07/22/21 NOV-none med filled 01/03/21 Please review and advise. Gaby Ochoa LPN documented in this encounterUniversity Hospitals [facility]04-25-2022 Miscellaneous Notes* Telephone Encounter - Manuel Lawrence APRN.CNP - 10/06/2021 11:03 AM EDT The following approved medication requests have been transmitted electronically. Pending Prescriptions Disp Refills GABAPENTIN 300 MG CAPSULE 30 capsule 5 Sig: Take 1 capsule by mouth daily at bedtime for 181 days. KYARA: No aMnuel Lawrence APRN.CNP * Telephone Encounter - Ning Rosales LPN - 10/06/2021 11:00 AM EDT fatimah-- 08/18/21 Last refill-- 06/03/21 30 with 5 refills Last labs 07/22/21 documented in this encounterUniversity Hospitals [facility]04-21-2022 History of Present illness Narrative* Mckenna Baeza MD - 10/02/2021 10:30 AM EDT Images from the original note were not included. . [facility] [place] Note Patient name: Sylvia Mancuso PCP: Yanira Loyns MD CC: Follow-up testing HPI: Sylvia Mancuso 51 year old female non-smoker with PMH significant for dilated CMP s/p ICD, LBBB,IBS, allergies, GERD, and COVID 07/01/21. Persistent respiratory symptoms of cough and ROCHA. Chest CTnegative of VTE and no GGO but had small bilateral effusions. PFTs showed mild restriction and no obstruction. Clinical history suspicious for asthma. Ordered methacholine challenge and increased PPI. Changing her proton pump inhibitor to twice daily dosing has dramatically improved her acid refluxsymptoms. Methacholine challenge positive for moderate AHR. Started Advair HFA 115/21 2 weeks ago. So far she has had no adverse reaction to her inhaler therapy. Her coughing has improved especially h er nocturnal coughing but more so since she doubled up on her proton pump inhibitor. She continues to have intermittent shortness of breath. Some days are better than others. No wheezing or chest pain. DATA: Bronchoprovocation challenge to [facility] 08/19/2021: At level 3 patient experienced 23% drop in FEV1. PD 20 FEV1 was noted to be 0.045, indicating the presence of moderate AHR. Postbronchodilator recovery noted. Impression: Positive methacholine challenge, indicative of moderate airways hyperresponsiveness. PAST MEDICAL HISTORY Diagnosis Date Allergies Cardiac defibrillator in place Cough variant asthma Cyst of Bartholin's gland GERD (gastroesophageal reflux disease) History of COVID-19 IBS (irritable bowel syndrome) Pacemaker PMH - PAST MEDICAL HISTORY OF 06/14/2004 Cardiomyopathy ALLERGIES Allergen Reactions Carvedilol Other: See Comments Nausea, headache. Intolerant to Generic only, can tolerate Coreg CR Environmental [Othe* Other: See Comments Head cold, cough Naproxen Hives Vancomycin Other: See Comments developed itching and redness , infusion was slowed down and tolerated fluticasone-salmeterol HFA (ADVAIR HFA) 115-21 mcg/actuation inhaler [...] Take 1 capsule by mouth twice daily. albuterol HFA (PROVENTIL HFA, VENTOLIN HFA) 90 mcg/actuation inhaler Inhale 2 Puffs as instructed every 6 hours as needed for wheezing/shortness of breath. gabapentin (NEURONTIN) 300 mg capsule Take 1 capsule by mouth daily at bedtime for 181 days. albuterol (PROVENTIL) 2.5 mg /3 mL (0.083 %) nebulizer solution Use 3 mL via nebulizer every 4 hours as needed for wheezing/shortness of breath. Use over 5-15minutes. linaCLOtide (LINZESS) 290 mcg capsule Take 1 capsule by mouth DAILY (6 AM). dicyclomine (BENTYL) 10 mg capsule Take 1 capsule by mouth three times daily as needed. diclofenac, EC, (VOLTAREN) 75 mg EC tablet Take 1 tablet by mouth twice daily. For pain/inflammation. Take with food. linaclotide (LINZESS) 145 mcg capsule Take 1 capsule by mouth DAILY (6 AM). MULTIVITAMIN ORAL Take by mouth. lactulose (DUPHALAC, CONSTULOSE) 20 gram/30 mL solution Take 30 mL by mouth once daily. hydrOXYzine HCl (ATARAX) 25 mg tablet Take 1 tablet by mouth every 6 hours as needed for Anxiety. omeprazole (PRILOSEC) 40 mg capsule Take 1 capsule by mouth once daily Social History Tobacco Use Smoking status: Never Smoker Smokeless tobacco: Never Used Vaping Use Vaping Use: Never used Substance Use Topics Alcohol use: No Drug use: No PMH, Social history, family history and surgical history reviewed and updated in EMR REVIEW OF SYSTEMS: CONSTITUTIONAL: No fevers, chills, nightsweats, unintended weight loss. Some persistent fatigue HEENT: Denies headaches, nasal congestion/sinus symptoms, problematic allergies. CARDIOVASCULAR: No chest pain, palpitations, orthopnea, PND, edema. PULM: See HPI GI: Reflux symptoms improved NEURO: No new balance problems, peripheral weakness/paresthesias or numbness of concern. No brain fog MUSC-SKEL: Back pain PSY: No concerns regarding depression, anxiety INTEGUMENTARY: No new skin changes or rashes PHYSICAL EXAMINATION: BP 124/58 Pulse 85 Resp 14 Wt 198 lb (89.8kg) SpO2 99% LMP 10/07/2020 General Appearance: Obese female no acute distress Skin: Skin color, texture, turgor normal, no suspicious rashes or lesions. Head: Normocephalic, no masses, lesions, tenderness or abnormalities. Eyes: Sclera, conjunctiva and Oropharynx: No oral lesions or thrush Neck: No JVD, no masses, no adenopathy Lungs: Not labored, normal to percussion, no wheezes or crackles Heart: Rate and rhythm, no murmurs or gallops Extremities: No edema or clubbing Assessment/Plan: 1. Cough variant asthma -Clear whether she has asthma that was worsened by her COVID infection or airways hyperresponsiveness purely related to COVID infection. Suspect baseline cough variant asthma triggered by COVID infection -She will continue on Advair HFA. To early to assess for adequate response to therapy 2. 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 GERD -Continue twice daily proton pump inhibitor for now Mckenna Baeza MD [facility] [place] documented in this encounterUniversity Hospitals [facility]aut [facility] Center04-11-2022 Hospital Discharge instructions Patient Education 09/22/2021 13:16:31 Back Pain (Acute or Chronic) Back Pain (Acute or Chronic) Back pain is one of the most common problems. The good news is that most people feel better in 1 to2 weeks, and most of the rest in 1 to 2 months. Most people can remain active. People who have pain describe it differently not everyone is the same. The pain can be sharp, stabbing, shooting, aching, cramping or burning. Movement, standing, bending, lifting, sitting, or walking may worsen pain. It can be localized to one spot or area, or it can be more generalized. It can spread or radiate upwards, to the front, or go down your arms or legs (sciatica). It can cause muscle spasm. Most of the time, mechanical problems with the muscles or spine cause the pain. Mechanical problemsare usually caused by an injury to the muscles or ligaments. While illness can cause back pain, it is usually not caused by a serious illness. Mechanical problems include: Physical activity such as sports, exercise, work, or normal activity Overexertion, lifting, pushing, pulling incorrectly or too aggressively Sudden twisting, bending, or stretching from an accident, or accidental movement Poor posture Stretching or moving wrong, without noticing pain at the time Poor coordination, lack of regular exercise (check with your doctor about this) Spinal disc disease or arthritis Stress Pain can also be related to , or illness like appendicitis, bladder or kidney infections, pelvic infections, and many other things. Acute back pain usually gets better in 1 to 2 weeks. Back pain related to disk disease, arthritis in the spinal joints or spinal stenosis (narrowing of the spinal canal) can become chronic and last for months or years. Unless you had a physical injury (for example, a car accident or fall) X-rays are usually not needed for the initial evaluation of back pain. If pain continues and does not respond to medical treatment, X-rays and other tests may be needed. Home care Try these home care recommendations: When in bed, try to find a position of comfort. A firm mattress is best. Try lying flat on your back with pillows under your knees. You can also try lying on your side with your knees bent up towardsyour chest and a pillow between your knees. At first, do not try to stretch out the sore spots. If there is a strain, it is not like the good soreness you get after exercising without an injury. In this case, stretching may make it worse. Don't sit for long periods, as in a long car ride or during other travel. This puts more stress on the lower back than standing or walking. During the first 24 to 72 hours after an acute injury or flare up of chronic back pain, apply an ice pack to the painful area for 20 minutes and then remove it for 20 minutes. Do this over a period of 60 to 90 minutes or several times a day. This will reduce swelling and pain. Wrap the ice pack in a thin towel or plastic to protect your skin. You can start with ice, then switch to heat. Heat (hot shower, hot bath, or heating pad) reduces pain and works well for muscle spasms. Heat can be applied to the painful area for 20 minutes then remove it for 20 minutes. Do this over a period of 60 to 90 minutes or several times a day. Do not sleep on a heating pad. It can lead to skin harper or tissue damage. You can alternate ice and heat therapy. Talk with your doctor about the best treatment for your back pain. Therapeutic massage can help relax the back muscles without stretching them. Be aware of safe lifting methods and do not lift anything without stretching first. Medicines Talk to your doctor before using medicine, especially if you have other medical problems or are taking other medicines. You may use kpwi-zwo-heqnqyk medicine as directed on the bottle to control pain, unless another pain medicine was prescribed. If you have chronic conditions like diabetes, liver or kidney disease, stomach ulcers, or gastrointestinal bleeding, or are taking blood thinners, talk to your doctor beforetaking any medicine. Be careful if you are given a prescription medicines, narcotics, or medicine for muscle spasms. They can cause drowsiness, affect your coordination, reflexes, and judgement. Do not drive or operate heavy machinery. Follow-up care Follow up with your healthcare provider, or as advised. A radiologist will review any X-rays that were taken. Your provide will notify you of any new findings that may affect your care. Call 911 Call 911 if any of the following occur: Trouble breathing Confusion Very drowsy or trouble awakening Fainting or loss of consciousness Rapid or very slow heart rate Loss of bowel or bladder control When to seek medical advice Call your healthcare provider right away if any of these occur: Pain becomes worse or spreads to your legs Weakness or numbness in one or both legs Numbness in the groin or genital area [id number] [employer]. [address] [place] [address]. All rights reserved. This information is not intended as a substitute for professional medical care. Always follow yourhealthcare professional's instructions. Follow Up Care 09/22/2021 11:50:02 With:YANIRA LYONS MD Address: [address] [place] [address]- When:2-4 days Comments:Schedule appointment for follow-up.Position of comfort, limit activity as tolerated.Use Tylenol or Advil for back pain as needed.Use [place] as prescribed for severe pain as needed.Continue prednisone and a muscle relaxant as previously prescribed.Return to the ED if symptoms worsen. [facility] 03-30-2022 Miscellaneous Notes* Telephone Encounter - Jg Bustillo - 09/10/2021 9:26 AM EDT Call from patient requesting refill. Pending Prescriptions Disp Refills LISINOPRIL 2.5 MG TABLET 90 tablet 3 Sig: Take 1 tablet by mouth once daily. KYARA: No ATENOLOL 25 MG TABLET 90 tablet 3 Sig: Take 1 tablet by mouth once daily. KYARA: No Patient last seen 10/14/2020 Jg Bustillo documented in this encounterUniversity [facility]als [facility]03-23-2022 Miscellaneous Notes* Telephone Encounter - Manuel Lawrence APRN.CNP - 09/03/2021 9:00 AM EDT The following approved medication requests have been transmitted electronically. Pending Prescriptions Disp Refills VENLAFAXINE ER 150 MG CAPSULE,EXTENDED RELEASE 24 HR 90 capsule 3 Sig: Take 1 capsule by mouth once daily. KYARA: No Manuel Lawrence APRN.[employer] * Telephone Encounter - Gaby Ochoa LPN - 09/03/2021 8:43 AM EDT Patient phones requesting refills as follows: Pending Prescriptions Disp Refills VENLAFAXINE ER 150 MG CAPSULE,EXTENDED RELEASE 24 HR 90 capsule 0 Sig: Take 1 capsule by mouth once daily. KYARA: No FATIMAH-08/18/20 Labs-11/09/20 NOV-none med filled 06/03/21 Please review and advise. Gaby Ochoa LPN documented in this encounterUniversity Hospitals [facility]02-08-2022 History of Present illness Narrative* Val Jameson, RT(R) - 07/22/2021 4:50 PM EST Radiology Service Progress Note PATIENT NAME: Sylvia Mancuso DATE OF SERVICE: July 22, 2021 TIME: 4:16 PM PATIENT IDENTITY VERIFICATION COMPLETED USING TWO (2) IDENTIFIERS: Name and Date of confirmedby patient verbally. FALL SCREENING: Has the patient had 2 falls in the last year or 1 fall with injury or currently using an Ambulatory Assistive Device (Walker, Cane, Wheelchair, Crutches, etc.)? No PATIENT GENDER DATA: Female. status: : No status: NO. PATIENT RELEVANT IMPLANT DATA REVIEWED: Yes RADIOLOGY DEPARTMENT: General X-ray: Exam(s) Completed: Pelvis X-Ray: Pelvis with Hip Right PERIPHERAL IV DATA: Not applicable SIGNED BY: RT Violet(R) July 22, 2021 4:16 PM documented in this encounterUniversity Hospitals [facility]01-18-2022 History of Present illness Narrative* Val Jameson RT(Chelle) - 07/01/2021 9:20 AM EST Radiology Service Progress Note PATIENT NAME: Sylvia Mancuso DATE OF SERVICE: July 01, 2021 TIME: 9:31 AM PATIENT IDENTITY VERIFICATION COMPLETED USING TWO (2) IDENTIFIERS: Name and Date of confirmedby patient verbally. FALL SCREENING: Has the patient had 2 falls in the last year or 1 fall with injury or currently using an Ambulatory Assistive Device (Walker, Cane, Wheelchair, Crutches, etc.)? No PATIENT GENDER DATA: Female. status: : No status: NO. PATIENT RELEVANT IMPLANT DATA REVIEWED: Yes RADIOLOGY DEPARTMENT: General X-ray: Exam(s) Completed: Chest X-Ray PERIPHERAL IV DATA: Not applicable SIGNED BY: RT Violet(Chelle) July 01, 2021 9:31 AM documented in this encounterUniversity Hospitals [facility]12-07-2021 Hospital Discharge instructions Patient Education 05/20/2021 12:39:55 DYSPNEA Shortness of Breath (Dyspnea) Shortness of breath is the feeling that you can't catch your breath or can't get enough air. It is also known as dyspnea. Dyspnea can be caused by many different conditions. Here are some: Acute asthma attack Worsening of COPD, chronic bronchitis, or emphysema Congestive heart failure, or CHF. This is a weak heart muscle allows extra fluid to collect in the lungs. Panic attacks or anxiety. Fear can cause rapid breathing (hyperventilation). Pneumonia, or an infection in the lung tissue. Exposure to toxic substances, fumes, smoke, or certain medicines Blood clot in the lung (pulmonary embolus) Heart attack or angina Anemia Collapsed lung (pneumothorax) Dehydration Based on your visit today, the exact cause of your shortness of breath is not certain. Your tests don t show any of the serious causes of dyspnea. You may need other tests to find out if you have a serious problem. It s important to watch for any new symptoms or symptoms that get worse. Follow up with your doctor as directed. Home care Follow these tips to take care of yourself at home: When your symptoms are better, go back to your usual activities. If you smoke, you need to stop. Join a stop-smoking program or ask your doctor for help. Eat a healthy diet and get plenty of sleep. Get regular exercise. But talk with your doctor before starting to exercise, especially if you haveother medical problems. Cut down on the amount of caffeine and stimulants you have. Follow-up care Follow up with your health care provider. If a culture was done, you will be told if your treatment needs to be changed. You can call in 2 to3 days, or as directed, for the results. If X-rays were taken, and a radiologist did not see them while you were here, they will be reviewed. You will be told if there is a change in the reading, especially if it affects your treatment. When to call 911 Call 911 if any of these occur: You have trouble breathing You feel confused or it s difficult to wake you You faint or lose consciousness You have a rapid heart rate New pain in your chest, arm, shoulder, neck, or upper back When to seek medical advice Call your health care provider right away if any of these occur: Shortness of breath or wheezing that gets worse Redness, pain or swelling in one leg Swelling in both legs or ankles Unexpected weight gain Chest, arm, shoulder, neck, or upper back pain Dizziness or weakness The sense that your heart is fluttering, or beating fast or hard (palpitations) Fever of 100.4 F (38 C) or higher, or as directed by your health care provider Cough with dark-colored or bloody sputum (mucus) [phone] [employer]. [address] [place] [address], [place] [address]. All rights reserved. This information is not intended as a substitute for professional medical care. Always follow yourhealthcare professional's instructions. Follow Up Care 05/20/2021 08:41:33 With:YANIRA LYONS MD Address: [address] [place] [id number]- When:2-4 days [facility] 11-28-2021 Hospital Discharge instructions Patient Education 05/11/2021 13:01:39 BRONCHITIS w/ Wheezing (Adult) Bronchitis With Wheezing (Viral Or Bacterial: Adult) Bronchitis is an infection of the air passages. It often occurs during the common cold and is usually caused by a virus. Symptoms include cough with mucus (phlegm) and low-grade fever. If there is a lot of inflammation, air flow is restricted. The air passages may also go into spasm,especially if you are an asthmatic. This causes wheezing and difficulty breathing even in persons who do not have asthma. Bronchitis usually lasts 7-14 days. The wheezing should improve with treatment during the first week. An inhaler is often prescribed to relax the air passages and stop wheezing. Antibiotics will be prescribed if your doctor thinks there is also a secondary bacterial infection. Home Care: If symptoms are severe, rest at home for the first 2-3 days. When resuming activity, don't let yourself become overly tired. Do not smoke and avoid exposure to the smoke of others. You may use acetaminophen (Tylenol) or ibuprofen (Motrin, Advil) to control fever, unless another medicine was prescribed. [NOTE: If you have chronic liver or kidney disease or ever had a stomach ulcer or GI bleeding, talk with your doctor before using these medicines.] (Aspirin should never be used in anyone under 18 years of age who is ill with a fever. It may cause severe liver damage.) Your appetite may be poor so a light diet is fine. Avoid dehydration by drinking 6-8 glasses of fluids per day (water, soft, drinks, juices, tea, soup, etc.). Extra fluids will help loosen secretionsin the lungs. Gesa-ppw-dbvihry cough medicines that contain dextromethorphan (such as Robitussin DM) and decongestants (Actifed or Sudafed) may help relieve cough and congestion. [NOTE: Do not use decongestants ifyou have high blood pressure.] If you were given an inhaler, use it exactly as directed. If you need to use it more often than prescribed, your condition may be worsening. Contact your doctor or this facility. If prescribed, finish all antibiotic medicine, even if you are feeling better after only a few days. Follow Up With Your Doctor Or As Directed If You Are Not Starting To Feel Better After Three Days. [NOTE: If you are age 65 or older, or if you have chronic asthma or COPD, we recommend a pneumococcal vaccination every five years and a yearly influenza vaccination (flu shot) every . Ask yourdoctor about this. If you had an x- ray or EKG (electrocardiogram), it will be reviewed by a specialist. You will be notified of any new findings that may affect your care.] Get Prompt Medical Attention If Any Of The Following Occur: Increased wheezing, shortness of breath or pain with breathing Fever of 100.4 F (38 C) oral or higher, not better with fever medication Coughing up blood or increasing amounts of colored sputum Weakness, drowsiness, headache, facial pain, ear pain or a stiff neck Lower leg swelling, tenderness, redness or pain [phone] [employer]. [address] [place] [address]. All rights reserved. This information is not intended as a substitute for professional medical care. Always follow yourhealthcare professional's instructions. Follow Up Care 05/11/2021 12:06:13 With:CARLTON RUANO DO Address: [id number] When:2-4 days [facility] 10-29-2021 Hospital Discharge instructions Patient Education 04/11/2021 19:18:49 BACK PAIN w/ SCIATICA Sciatica Sciatica is a condition that causes pain in the lower back and down into the buttock, hip, and leg.Sometimes the leg pain can happen without any back pain. Sciatica happens when a spinal nerve is irritated or has pressure put on it as comes out of the spinal canal in the lower back. This most often happens when a bulge or rupture of a nearby spinal disk presses on the nerve. Sciatica can also becaused by a narrowing of the spinal canal (spinal stenosis) or spasm of the muscle in the buttocks that the sciatic nerve passes through (pyriform muscle). Sciatica is also called lumbar radiculopathy. Sciatica may begin after a sudden twisting or bending force, such as in a car accident. Or it can happen after a simple awkward movement. In either case, muscle spasm often also happens. Muscle spasmmakes the pain worse. A health care provider makes a diagnosis of sciatica from your symptoms and a physical exam. Unlessyou had an injury from a car accident or fall, you usually won t have X-rays taken at this time. This is because the nerves and disks in your back can t be seen on an X-ray. If the provider sees signs of a compressed nerve, you will need to schedule an MRI scan as an outpatient. Signs of a compressed nerve include loss of strength in a leg. Most sciatica gets better with medicine, exercise, and physical therapy. If your symptoms continue after at least 3 months of medical treatment, you may need surgery. Home care Follow these tips when caring for yourself at home: You may need to stay in bed the first few days. But as soon as possible, begin sitting or walking. This will help you avoid problems that come from staying in bed for long periods. When in bed, try to find a position that is comfortable. A firm mattress is best. Try lying flat onyour back with pillows under your knees. You can also try lying on your side with your knees bent up toward your chest and a pillow between your knees. Avoid sitting for long periods. This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 isits Requested Visits Authorized [id number] Closed Auto-Generate d Referral 07/12/2024 08/11/2025 1 1 [facility] for visit Narrative* Diagnostic Procedure Only (Urgent) - Closed Specialty Diagnoses / Procedures Referred By Contac t Referred To Contact XR IMAGING Diagnoses Hand injuries, left, initial encounter Procedures XR HAND GENERAL 3V PA/LAT/OBL LEFT RADEX HAND MINIMUM 3 VIEWS Charanjit Coker APRN.[employer] [address] [place] [address] [place] [address] Referral ID Status Reason Start Date Expiration Date V isits Requested Visits Authorized [id number] Closed Auto-Generate d Referral 08/13/2021 09/12/2022 1 1 [facility] for visit Narrative* Diagnostic Procedure Only (Routine) - Closed Specialty Diagnoses / Procedures Referred By Contac t Referred To Contact XR IMAGING Diagnoses Irritable bowel syndrome with constipation Procedures XR ABDOMEN 1V SUPINE RADIOLOGIC EXAM ABDOMEN 1 VIEW Natasha Gomez PA-C [address] [facility] [place] [address] [place] [address] Referral ID Status Reason Start Date Expiration Date V isits Requested Visits Authorized [id number] Closed Auto-Generate d Referral 03/13/2021 04/12/2022 1 1 [facility] for visit Narrative* Diagnostic Procedure Only (Urgent) - Closed Specialty Diagnoses / Procedures Referred By Contac t Referred To Contact XR IMAGING Diagnoses Fall, initial encounter Procedures XR HIP GENERAL 3V PELV/AP/LAT RIGHT RADEX HIP UNILATERAL WITH PELVIS 2-3 VIEWS Crystal Ashford APRN.[employer] [address] [place] [address] [place] [address] Referral ID Status Reason Start Date Expiration Date V isits Requested Visits Authorized [id number] Closed Auto-Generate d Referral 07/22/2021 08/21/2022 1 1 [facility] for visit Narrative* Diagnostic Procedure Only (Urgent) - Closed Specialty Diagnoses / Procedures Referred By Contac t Referred To Contact XR IMAGING Diagnoses Injury of right hand, initial encounter Procedures XR HAND GENERAL 3V PA/LAT/OBL RIGHT RADEX HAND MINIMUM 3 VIEWS Charanjit Coker, RON.[employer] [address] [place] [address] [place] [address] Referral ID Status Reason Start Date Expiration Date V isits Requested Visits Authorized [id number] Closed Auto-Generate d Referral 07/12/2024 08/11/2025 1 1 [facility] for visit Narrative* Diagnostic Procedure Only (Urgent) - Closed Specialty Diagnoses / Procedures Referred By Contac t Referred To Contact XR IMAGING Diagnoses Injury of right knee, initial encounter Procedures XR KNEE GENERAL 4V AP BOTH/PA BOTH/LAT/MERC RIGHT RADIOLOGIC EXAM KNEE COMPLETE 4/MORE VIEWS Charanjit Coker, RON.[employer] [address] [place] [address] Phone: tel: fax: [place] [address] Referral ID Status Reason Start Date Expiration Date V isits Requested Visits Authorized [id number] Closed Auto-Generate d Referral 10/30/2024 11/29/2025 1 1 [facility] Summary Purpose Family History No Family History Records Found Relationship Condition Age at Onset Recorded Date/T tracie Unknown Family History?No pertinent history Unkno October 03, 2015 4:36pm Family History?No pertinent history Unkno October 03, 2015 4:36pm Family History?No pertinent history Unkno September 29, 2021 9:55am Relationship Condition Age at Onset Recorded Date/T tracie Unknown Family History?No pertinent history Unkno wn October 03, 2015 3:36pm Family History?No pertinent history Unkno October 03, 2015 3:36pm Family History?No pertinent history Unkno September 29, 2021 8:55am Relationship Condition Age at Onset Recorded Date/T tracie Not Specified Malignant neoplasm of skin Unknown Malignant neoplasm of colon Unknown Diabetes mellitus Unknown Malignant neoplasm of urinary bladder Unk nown High blood cholesterol Unknown Arthritis Unknown Malignant neoplasm Unknown Hypertension Unknown Relationship Condition Age at Onset Recorded Date/T tracie Not Specified Diabetes mellitus Unknown Malignant neoplasm of urinary bladder Unk nown Malignant neoplasm Unknown Hypertension Unknown grandmother Cerebrovascular accident (CVA) Unknown mother Malignant neoplasm of colon Unknown High blood cholesterol Unknown Advance Directives No Advanced Directives Records FoundDocuments on File Type Date 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 Advance Directive(s) 08/28/2020 2:48 PM Advance Directive(s) 03/11/2020 8:15 AM Advance Directive(s) 03/09/2020 3:38 PM Documents on File Type Date 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 Advance Directive(s) 08/28/2020 2:48 PM Advance Directive(s) 03/11/2020 8:15 AM Advance Directive(s) 03/09/2020 3:38 PM Advance Directive Response Recorded Date/ Time Advance Directives No September 29 9:55am Living Will No October 31, 2021 3 :57pm Power of Sales And Marketing Executive No October 31, 2021 3:57pm Advance Directive Response Recorded Date/ Time Advance Directives No September 29 9:55am Living Will No January 06, 2022 3:37pm Power of Sales And Marketing Executive No January 06 3:37pm Advance Directive Response Recorded Date/ Time Advance Directives No September 29 9:55am Living Will No March 08, 2022 9:45pm Power of Sales And Marketing Executive No February 9:45pm Advance Directive Response Recorded Date/ Time Advance Directives No September 29 8:55am Living Will No April 23 7:06pm Power of Sales And Marketing Executive No April 23, 2022 7:06pm Advance Directive Response Recorded Date/ Time Advance Directives No September 29 8:55am Living Will No April 27 10:40am Power of Sales And Marketing Executive No April 27, 2022 10:40am Advance Directive Response Recorded Date/ Time Advance Directives No September 29 8:55am Living Will No August 18, 2022 2:07pm Power of Sales And Marketing Executive No August 18 2:07pm Advance Directive Response Recorded Date/ Time Advance Directives No August 24 9:40am Living Will No August 24, 2022 9:40am Power of Sales And Marketing Executive No August 24 9:40am Advance Directive Response Recorded Date/ Time Advance Directives No August 24, 2 023 9:40am Living Will No February 23, 2023 10:23am Power of Sales And Marketing Executive No February 10:23am Advance Directive Response Recorded Date/ Time Advance Directives No August 24, 2 023 9:40am Living Will No March 02, 2023 7:20am Power of Sales And Marketing Executive No February 7:20am Advance Directive Response Recorded Date/ Time Advance Directives No April 07, 2023 8:56am Living Will No April 07 8:56am Power of Sales And Marketing Executive No April 07, 2023 8:56am Advance Directive Response Recorded Date/ Time Advance Directives No April 07, 2023 7:56am Living Will No April 07 7:56am Power of Sales And Marketing Executive No April 07, 2023 7:56am Advance Directive Response Recorded Date/ Time Living Will No April 07 8:56am Do you have a Healthcare Power of Sales And Marketing Executive? No April 07, 2023 8:56am Advance Directives No April 07, 2023 8:56am Advance Directive Response Recorded Date/ Time Advance Directives No April 07, 2023 8:56am Advance Directive Response Recorded Date/ Time Advance Directives No November 10 11:20am Chief Complaint and Reason for Visit Chief Complaint COVID COUGH (COVID + 07/01/21) FALL POST FALL/ COMMUNITY ACTION/ BWC COUGH Cough LOWER BACK PAIN L/S BACK PAIN 2 W FU COUGH/SHORTNESS OF BREATH CONTUSION LOW BK & PELVIS,CONTUSION LT HIP/RX HERE HIP PAIN LUMBER SPINE DDD Pain BACK Reason for Visit Contusion, hip Contusion of lower back Contusion of lower back Bronchitis Contusion of lower back Contusion, hip DDD (degenerative disc disease), lumbar Chief Complaint COUGH (COVID + ) FALL POST FALL/ COMMUNITY ACTION/ BWC COUGH Cough LOWER BACK PAIN L/S BACK PAIN 2 W FU COUGH/SHORTNESS OF BREATH CONTUSION LOW BK & PELVIS,CONTUSION LT HIP/RX HERE HIP PAIN LUMBER SPINE DDD Pain BACK lumbar Reason for Visit Contusion, hip Contusion of lower back Contusion of lower back Bronchitis Contusion of lower back Contusion, hip DDD (degenerative disc disease), lumbar Lumbosacral radiculopathy at S1 Chief Complaint COUGH/SHORTNESS OF B REATH CONTUSION LOW BK & PELVIS,CONTUSION LT HIP/RX HERE HIP PAIN LUMBER SPINE DDD Pain BACK lumbar LUMBAR SPRAIN BACK PAIN Reason for Visit Bronchitis Contusion of lower back Contusion, hip DDD (degenerative disc disease), lumbar Lumbosacral radiculopathy at S1 Chief Complaint LUMBAR SPRAIN BACK PAIN BACK Chief Complaint LUMBAR SPRAIN BACK PAIN BACK URI Chief Complaint LUMBAR SPRAIN BACK PAIN BACK URI sob Chief Complaint URI sob sob, fever ESTABLISH CARE Asthma TROUBLE BREATHING ASTHMA Asthma ACUTE ASTHMA EXACERBATION Reason for Visit Encounter for wellne ss examination in adult Encounter to establish care History of cardiomyopathy Lumbosacral radiculopathy at S1 Asthma History of implantable cardioverter-defibrillator (ICD) placement Allergic rhinitis due to allergen Asthma Excessive daytime sleepiness Primary snoring Asthma with acute exacerbation Abnormal PFTs Asthma with acute exacerbation History of cardiomyopathy Shortness of breath Chief Complaint URI sob sob, fever ESTABLISH CARE Asthma TROUBLE BREATHING ASTHMA Asthma ACUTE ASTHMA EXACERBATION ACUTE ASTHMA EXACERBATION Reason for Visit Encounter for [facility] examination in adult Encounter to establish care History of cardiomyopathy Lumbosacral radiculopathy at S1 Asthma History of implantable cardioverter-defibrillator (ICD) placement Allergic rhinitis due to allergen Asthma Excessive daytime sleepiness Primary snoring Asthma with acute exacerbation Abnormal PFTs Asthma with acute exacerbation History of cardiomyopathy Shortness of breath Chief Complaint URI sob sob, fever ESTABLISH CARE Asthma TROUBLE BREATHING ASTHMA Asthma ACUTE ASTHMA EXACERBATION ACUTE ASTHMA EXACERBATION ACUTE ASTHMA EXACERBATION SNORING, EDS Reason for Visit Encounter for [facility] ss examination in adult Encounter to establish care History of cardiomyopathy Lumbosacral radiculopathy at S1 Asthma History of implantable cardioverter-defibrillator (ICD) placement Allergic rhinitis due to allergen Asthma Excessive daytime sleepiness Primary snoring Asthma with acute exacerbation Abnormal PFTs Asthma with acute exacerbation History of cardiomyopathy Shortness of breath Chief Complaint sob, fever ESTABLISH CARE Asthma TROUBLE BREATHING ASTHMA Asthma ACUTE ASTHMA EXACERBATION ACUTE ASTHMA EXACERBATION ACUTE ASTHMA EXACERBATION SNORING, EDS Hospital FU e order Reason for Visit Encounter for [facility] ss examination in adult Encounter to establish care Lumbosacral radiculopathy at S1 Asthma History of implantable cardioverter-defibrillator (ICD) placement Allergic rhinitis due to allergen Asthma Excessive daytime sleepiness Primary snoring Asthma with acute exacerbation Asthma with acute exacerbation Shortness of breath Elevated serum creatinine Lumbosacral radiculopathy at S1 Asthma History of implantable cardioverter-defibrillator (ICD) placement Chief Complaint ESTABLISH CARE Asthma TROUBLE BREATHING ASTHMA Asthma ACUTE ASTHMA EXACERBATION ACUTE ASTHMA EXACERBATION ACUTE ASTHMA EXACERBATION SNORING, EDS Hospital FU e order EORDER Reason for Visit Encounter for [facility] ss examination in adult Encounter to establish care Lumbosacral radiculopathy at S1 Asthma History of implantable cardioverter-defibrillator (ICD) placement Allergic rhinitis due to allergen Asthma Excessive daytime sleepiness Primary snoring Asthma with acute exacerbation Asthma with acute exacerbation Shortness of breath Elevated serum creatinine Lumbosacral radiculopathy at S1 Asthma History of implantable cardioverter-defibrillator (ICD) placement Chief Complaint ESTABLISH CARE Asthma TROUBLE BREATHING ASTHMA Asthma ACUTE ASTHMA EXACERBATION ACUTE ASTHMA EXACERBATION ACUTE ASTHMA EXACERBATION SNORING, EDS Hospital FU e order EORDER ELEVATED CREATININE Reason for Visit Encounter for [facility] ss examination in adult Encounter to establish care Lumbosacral radiculopathy at S1 Asthma History of implantable cardioverter-defibrillator (ICD) placement Allergic rhinitis due to allergen Asthma Excessive daytime sleepiness Primary snoring Asthma with acute exacerbation Asthma with acute exacerbation Shortness of breath Elevated serum creatinine Lumbosacral radiculopathy at S1 Asthma History of implantable cardioverter-defibrillator (ICD) placement Chief Complaint HEART FAILURE 3 M FU Amb Documentation CHF / 2ND OPINION (ALEKSANDRA) E ORDERS X 2 [facility] ER FU Reason for Visit Asthma Congestive heart failure (CHF) Asthma Biventricular ICD (implantable cardioverter-defibrillator) in place Chest pain Diastolic dysfunction Dyspnea on exertion History of cardiomyopathy Chief Complaint HEART FAILURE 3 M FU Amb Documentation CHF / 2ND OPINION (ALEKSANDRA) E ORDERS X 2 [facility] ER FU SOB, CHEST PAIN, HEART FAILURE cp Reason for Visit Asthma Congestive heart failure (CHF) Asthma Biventricular ICD (implantable cardioverter-defibrillator) in place Chest pain Diastolic dysfunction Dyspnea on exertion History of cardiomyopathy Elevated TSH Left bundle branch block Lumbosacral radiculopathy at S1 Type 2 diabetes mellitus Biventricular ICD (implantable cardioverter-defibrillator) in place Congestive heart failure (CHF) Chief Complaint 3 M FU Amb Documentation CHF / 2ND OPINION (ALEKSANDRA) E ORDERS X 2 [facility] ER FU SOB, CHEST PAIN, HEART FAILURE cp R06.02 R06.02 Amb Documentation INT LABS ABNORMAL STRESS Reason for Visit Asthma Congestive heart failure (CHF) Asthma Biventricular ICD (implantable cardioverter-defibrillator) in place Chest pain Diastolic dysfunction Dyspnea on exertion History of cardiomyopathy Elevated TSH Left bundle branch block Lumbosacral radiculopathy at S1 Type 2 diabetes mellitus Biventricular ICD (implantable cardioverter-defibrillator) in place Congestive heart failure (CHF) Chief Complaint 3 M FU Amb Documentation CHF / 2ND OPINION (ALEKSANDRA) E ORDERS X 2 [facility] ER FU SOB, CHEST PAIN, HEART FAILURE cp R06.02 R06.02 Amb Documentation INT LABS ABNORMAL STRESS ABNORMAL STRESS HEMATURIA Reason for Visit Asthma Congestive heart failure (CHF) Asthma Biventricular ICD (implantable cardioverter-defibrillator) in place Chest pain Diastolic dysfunction Dyspnea on exertion History of cardiomyopathy Elevated TSH Left bundle branch block Lumbosacral radiculopathy at S1 Type 2 diabetes mellitus Biventricular ICD (implantable cardioverter-defibrillator) in place Congestive heart failure (CHF) Chief Complaint 3 M FU Amb Documentation CHF / 2ND OPINION (ALEKSANDRA) E ORDERS X 2 [facility] ER FU SOB, CHEST PAIN, HEART FAILURE cp R06.02 R06.02 Amb Documentation INT LABS ABNORMAL STRESS ABNORMAL STRESS HEMATURIA 3 M FU Reason for Visit Asthma Congestive heart failure (CHF) Asthma Biventricular ICD (implantable cardioverter-defibrillator) in place Chest pain Diastolic dysfunction Dyspnea on exertion History of cardiomyopathy Elevated TSH Left bundle branch block Lumbosacral radiculopathy at S1 Type 2 diabetes mellitus Biventricular ICD (implantable cardioverter-defibrillator) in place Congestive heart failure (CHF) Asthma Congestive heart failure (CHF) Chief Complaint R06.02 R06.02 Amb Documentation INT LABS ABNORMAL STRESS ABNORMAL STRESS HEMATURIA 3 M FU INT LABS TWO DR'S 3 M FU EST/AR @ 2:15 New enrollee to device clinic INT LABS Reason for Visit Asthma Congestive heart failure (CHF) Elevated TSH Hyperlipidemia Left bundle branch block Asthma Biventricular ICD (implantable cardioverter-defibrillator) in place Diabetes Diastolic dysfunction History of cardiomyopathy Left bundle branch block Biventricular ICD (implantable cardioverter-defibrillator) in place History of cardiomyopathy Chief Complaint Admit Date 3 M FU May 31, 2024 8:10am INT LABS June 01, 2024 7:08am CHF June 16, 2024 1: 44pm ATHSMA June 21, 2024 7: 49am Amb Documentation June 22, 2024 8: 34am ASTHMA June 27, 2024 8 :05am Asthma July 03, 2024 1 0:35am Pacer Check Remote July 17, 2024 1 2:13am E-ORDER August 25, 2024 7:2 4am 6 WK F/U August 25, 2024 7:5 7am Reason for Visit Admit Date Asthma May 31, 2024 8:10am Atypical chest pain May 31, 2024 8:10am Congestive heart failure (CHF) May 31, 2024 8:10am Hoarseness August 25, 2024 7:5 7am SOB (shortness of breath) August 25 7:57am Asthma August 25, 2024 7:5 7am Atypical chest pain August 25, 2024 7:5 7am Congestive heart failure (CHF) August 7:57am Chief Complaint Admit Date CHF June 16, 2024 1: 44pm ATHSMA June 21, 2024 7: 49am Amb Documentation June 22, 2024 8: 34am ASTHMA June 27, 2024 8 :05am Asthma July 03, 2024 1 0:35am Pacer Check Remote July 17, 2024 1 2:13am E-ORDER August 25, 2024 7:2 4am 6 WK F/U August 25, 2024 7:5 7am SOB, PREVIOUS GROUND GLASS OPACITI September 27, 2024 4:43pm LUMBAR RX HERE October 02, 2024 5:5 2pm Reason for Visit Admit Date Hoarseness August 25, 2024 7:5 7am SOB (shortness of breath) August 25 7:57am Asthma August 25, 2024 7:5 7am Atypical chest pain August 25, 2024 7:5 7am Congestive heart failure (CHF) August 7:57am Chief Complaint Admit Date ASTHMA June 27, 2024 8 :05am Asthma July 03, 2024 1 0:35am Pacer Check Remote July 17, 2024 1 2:13am E-ORDER August 25, 2024 7:2 4am 6 WK F/U August 25, 2024 7:5 7am SOB, PREVIOUS GROUND GLASS OPACITI September 27, 2024 4:43pm Pacer Check Remote October 16, 2024 1:56am E-ORDER October 20, 2024 7:51am LUMBAR RX HERE October 23, 2024 6:00p m Chief Complaint Admit Date Pacer Check Remote July 17, 2024 1 2:13am E-ORDER August 25, 2024 7:2 4am 6 WK F/U August 25, 2024 7:5 7am SOB, PREVIOUS GROUND GLASS OPACITI September 27, 2024 4:43pm Pacer Check Remote October 16, 2024 1:56am E-ORDER October 20, 2024 7:51am LUMBAR RX HERE November 09, 2024 5:00p m Knee Infection November 13, 2024 2:56p m Reason for Visit Admit Date Hoarseness August 25, 2024 7:5 7am SOB (shortness of breath) August 25 7:57am Asthma August 25, 2024 7:5 7am Atypical chest pain August 25, 2024 7:5 7am Congestive heart failure (CHF) August 7:57am Contusion of right tibia November 13, 2024 2:56pm Obesity (BMI 30-39.9) November 13, 2024 2:5 6pm Wound of skin November 13, 2024 2:56p m Diabetes November 13, 2024 2:56p m Chief Complaint Admit Date E-ORDER August 25, 2024 7:2 4am 6 WK F/U August 25, 2024 7:5 7am SOB, PREVIOUS GROUND GLASS OPACITI September 27, 2024 4:43pm Pacer Check Remote October 16, 2024 1:56am E-ORDER October 20, 2024 7:51am Knee Infection November 13, 2024 2:56p m Tibial contusion November 13, 2024 4:20p m LUMBAR RX HERE November 16, 2024 5:00p m Chief Complaint Admit Date E-ORDER August 25, 2024 7:2 4am 6 WK F/U August 25, 2024 7:5 7am SOB, PREVIOUS GROUND GLASS OPACITI September 27, 2024 4:43pm Pacer Check Remote October 16, 2024 1:56am E-ORDER October 20, 2024 7:51am Knee Infection November 13, 2024 2:56p m Tibial contusion November 13, 2024 4:20p m LUMBAR RX HERE November 20, 2024 5:00p m Chief Complaint Admit Date E-ORDER August 25, 2024 7:2 4am 6 WK F/U August 25, 2024 7:5 7am SOB, PREVIOUS GROUND GLASS OPACITI September 27, 2024 4:43pm Pacer Check Remote October 16, 2024 1:56am E-ORDER October 20, 2024 7:51am Knee Infection November 13, 2024 2:56p m Tibial contusion November 13, 2024 4:20p m LUMBAR RX HERE November 20, 2024 5:00p m Annual/Physical December 07, 2024 7:57 am Reason for Visit Admit Date Hoarseness August 25, 2024 7:5 7am SOB (shortness of breath) August 25 7:57am Asthma August 25, 2024 7:5 7am Atypical chest pain August 25, 2024 7:5 7am Congestive heart failure (CHF) August 7:57am Contusion of right tibia November 13, 2024 2:56pm Obesity (BMI 30-39.9) November 13, 2024 2:5 6pm Wound of skin November 13, 2024 2:56p m Diabetes November 13, 2024 2:56p m Encounter for wellness examination in ad ult December 07, 2024 7:57am Hyperlipidemia December 07, 2024 7:57 am Obesity (BMI 30-39.9) December 07, 2024 7: 57am Asthma December 07, 2024 7:57 am Biventricular ICD (implantab le cardioverter-defibrillator) in place December 07, 2024 7:57am Diabetes December 07, 2024 7:57 am History of cardiomyopathy December 07 7:57am Health Concerns Infection Onset Date Last Indicated Resolved Time COVID-19 Rule-Out 04/16/2022 04/16/2022 04/17/2022 4:10 AM EDT Reason for Referral * Right Hip Contusion Additional Source Comments INFORMATION SOURCE (unrecogn ized section and content) DATE CREATED AUTHOR 12/07/2017 [place] [facility] [employer] DATE CREATED AUTHOR AUTHOR'S ORGANIZ ATION 03/12/2020 [facility] DATE CREATED AUTHOR AUTHOR'S ORGANIZ ATION 05/13/2021 [facility] DATE CREATED AUTHOR AUTHOR'S ORGANIZ ATION 02/04/2022 [facility] DATE CREATED AUTHOR AUTHOR'S ORGANIZ ATION 05/06/2022 [facility] ([place]) DATE CREATED AUTHOR AUTHOR'S ORGANIZ ATION 02/06/2023 [facility] DATE CREATED AUTHOR AUTHOR'S ORGANIZ ATION 07/23/2024 [facility] DATE CREATED AUTHOR AUTHOR'S ORGANIZ ATION 11/08/2024 [facility] DATE CREATED AUTHOR AUTHOR'S ORGANIZ ATION 12/14/2024 [facility] Source Comments (unrecognize d section and content) In the event this informatio n is protected by the Federal Confidentiality of Alcohol and Drug Abuse Patient Records regulations: The Federal rules restrict any use of the information to criminally investigate or prosecute any alcohol or drug abuse patient.[facility] CenterIn the event this information is protected by the Federal Confidentiality of Alcohol and Drug Abuse Patient Records regulations: The Federal rules restrict any use of the information to criminally investigate or prosecute any alcohol or drug abuse patient.[facility] CenterIn the event this information is protected by the Federal Confidentiality of Alcohol and Drug Abuse Patient Records regulations: The Federal rules restrict any use of the information to criminally investigate or prosecute any alcohol or drug abuse patient.[facility] CenterIn the event this information is protected by the Federal Confidentiality of Alcohol and Drug Abuse Patient Records regulations: The Federal rules restrict any use of the information to criminally investigate or prosecute any alcohol or drug abuse patient.[facility] CenterIn the event this information is protected by the Federal Confidentiality of Alcohol and Drug Abuse Patient Records regulations: The Federal rules restrict any use of the information to criminally investigate or prosecute any alcohol or drug abuse patient.[facility] CenterIn the event this information is protected by the Federal Confidentiality of Alcohol and Drug Abuse Patient Records regulations: The Federal rules restrict any use of the information to criminally investigate or prosecute any alcohol or drug abuse patient.[facility] CenterIn the event this information is protected by the Federal Confidentiality of Alcohol and Drug Abuse Patient Records regulations: The Federal rules restrict any use of the information to criminally investigate or prosecute any alcohol or drug abuse patient.[facility] CenterIn the event this information is protected by the Federal Confidentiality of Alcohol and Drug Abuse Patient Records regulations: The Federal rules restrict any use of the information to criminally investigate or prosecute any alcohol or drug abuse patient.[facility] CenterIn the event this information is protected by the Federal Confidentiality of Alcohol and Drug Abuse Patient Records regulations: The Federal rules restrict any use of the information to criminally investigate or prosecute any alcohol or drug abuse patient.[facility] CenterIn the event this information is protected by the Federal Confidentiality of Alcohol and Drug Abuse Patient Records regulations: The Federal rules restrict any use of the information to criminally investigate or prosecute any alcohol or drug abuse patient.[facility] CenterIn the event this information is protected by the Federal Confidentiality of Alcohol and Drug Abuse Patient Records regulations: The Federal rules restrict any use of the information to criminally investigate or prosecute any alcohol or drug abuse patient.[facility] CenterIn the event this information is protected by the Federal Confidentiality of Alcohol and Drug Abuse Patient Records regulations: The Federal rules restrict any use of the information to criminally investigate or prosecute any alcohol or drug abuse patient.[facility] CenterIn the event this information is protected by the Federal Confidentiality of Alcohol and Drug Abuse Patient Records regulations: The Federal rules restrict any use of the information to criminally investigate or prosecute any alcohol or drug abuse patient.[facility] CenterIn the event this information is protected by the Federal Confidentiality of Alcohol and Drug Abuse Patient Records regulations: The Federal rules restrict any use of the information to criminally investigate or prosecute any alcohol or drug abuse patient.[facility] CenterIn the event this information is protected by the Federal Confidentiality of Alcohol and Drug Abuse Patient Records regulations: The Federal rules restrict any use of the information to criminally investigate or prosecute any alcohol or drug abuse patient.[facility] CenterIn the event this information is protected by the Federal Confidentiality of Alcohol and Drug Abuse Patient Records regulations: The Federal rules restrict any use of the information to criminally investigate or prosecute any alcohol or drug abuse patient.[facility] CenterIn the event this information is protected by the Federal Confidentiality of Alcohol and Drug Abuse Patient Records regulations: The Federal rules restrict any use of the information to criminally investigate or prosecute any alcohol or drug abuse patient.[facility] CenterIn the event this information is protected by the Federal Confidentiality of Alcohol and Drug Abuse Patient Records regulations: The Federal rules restrict any use of the information to criminally investigate or prosecute any alcohol or drug abuse patient.[facility] CenterIn the event this information is protected by the Federal Confidentiality of Alcohol and Drug Abuse Patient Records regulations: The Federal rules restrict any use of the information to criminally investigate or prosecute any alcohol or drug abuse patient.[facility] CenterIn the event this information is protected by the Federal Confidentiality of Alcohol and Drug Abuse Patient Records regulations: The Federal rules restrict any use of the information to criminally investigate or prosecute any alcohol or drug abuse patient.[facility] CenterIn the event this information is protected by the Federal Confidentiality of Alcohol and Drug Abuse Patient Records regulations: The Federal rules restrict any use of the information to criminally investigate or prosecute any alcohol or drug abuse patient.[facility] CenterIn the event this information is protected by the Federal Confidentiality of Alcohol and Drug Abuse Patient Records regulations: The Federal rules restrict any use of the information to criminally investigate or prosecute any alcohol or drug abuse patient.[facility] CenterIn the event this information is protected by the Federal Confidentiality of Alcohol and Drug Abuse Patient Records regulations: The Federal rules restrict any use of the information to criminally investigate or prosecute any alcohol or drug abuse patient.[facility] CenterIn the event this information is protected by the Federal Confidentiality of Alcohol and Drug Abuse Patient Records regulations: The Federal rules restrict any use of the information to criminally investigate or prosecute any alcohol or drug abuse patient.[facility] CenterIn the event this information is protected by the Federal Confidentiality of Alcohol and Drug Abuse Patient Records regulations: The Federal rules restrict any use of the information to criminally investigate or prosecute any alcohol or drug abuse patient.[facility] CenterIn the event this information is protected by the Federal Confidentiality of Alcohol and Drug Abuse Patient Records regulations: The Federal rules restrict any use of the information to criminally investigate or prosecute any alcohol or drug abuse patient.[facility] CenterIn the event this information is protected by the Federal Confidentiality of Alcohol and Drug Abuse Patient Records regulations: The Federal rules restrict any use of the information to criminally investigate or prosecute any alcohol or drug abuse patient.[facility] CenterIn the event this information is protected by the Federal Confidentiality of Alcohol and Drug Abuse Patient Records regulations: The Federal rules restrict any use of the information to criminally investigate or prosecute any alcohol or drug abuse patient.[facility] CenterIn the event this information is protected by the Federal Confidentiality of Alcohol and Drug Abuse Patient Records regulations: The Federal rules restrict any use of the information to criminally investigate or prosecute any alcohol or drug abuse patient.[facility] CenterIn the event this information is protected by the Federal Confidentiality of Alcohol and Drug Abuse Patient Records regulations: The Federal rules restrict any use of the information to criminally investigate or prosecute any alcohol or drug abuse patient.[facility] CenterIn the event this information is protected by the Federal Confidentiality of Alcohol and Drug Abuse Patient Records regulations: The Federal rules restrict any use of the information to criminally investigate or prosecute any alcohol or drug abuse patient.[facility] CenterIn the event this information is protected by the Federal Confidentiality of Alcohol and Drug Abuse Patient Records regulations: The Federal rules restrict any use of the information to criminally investigate or prosecute any alcohol or drug abuse patient.[facility] CenterIn the event this information is protected by the Federal Confidentiality of Alcohol and Drug Abuse Patient Records regulations: The Federal rules restrict any use of the information to criminally investigate or prosecute any alcohol or drug abuse patient.[facility] CenterIn the event this information is protected by the Federal Confidentiality of Alcohol and Drug Abuse Patient Records regulations: The Federal rules restrict any use of the information to criminally investigate or prosecute any alcohol or drug abuse patient.[facility] CenterIn the event this information is protected by the Federal Confidentiality of Alcohol and Drug Abuse Patient Records regulations: The Federal rules restrict any use of the information to criminally investigate or prosecute any alcohol or drug abuse patient.[facility] CenterIn the event this information is protected by the Federal Confidentiality of Alcohol and Drug Abuse Patient Records regulations: The Federal rules restrict any use of the information to criminally investigate or prosecute any alcohol or drug abuse patient.[facility] CenterIn the event this information is protected by the Federal Confidentiality of Alcohol and Drug Abuse Patient Records regulations: The Federal rules restrict any use of the information to criminally investigate or prosecute any alcohol or drug abuse patient.[facility] CenterIn the event this information is protected by the Federal Confidentiality of Alcohol and Drug Abuse Patient Records regulations: The Federal rules restrict any use of the information to criminally investigate or prosecute any alcohol or drug abuse patient.[facility] CenterIn the event this information is protected by the Federal Confidentiality of Alcohol and Drug Abuse Patient Records regulations: The Federal rules restrict any use of the information to criminally investigate or prosecute any alcohol or drug abuse patient.[facility] Center[facility] the event this information is protected by the Federal Confidentiality of Alcohol and Drug Abuse Patient Records regulations: The Federal rules restrict any use of the information to criminally investigate or prosecute any alcohol or drug abuse patient.[facility] CenterIn the event this information is protected by the Federal Confidentiality of Alcohol and Drug Abuse Patient Records regulations: The Federal rules restrict any use of the information to criminally investigate or prosecute any alcohol or drug abuse patient.[facility] CenterIn the event this information is protected by the Federal Confidentiality of Alcohol and Drug Abuse Patient Records regulations: The Federal rules restrict any use of the information to criminally investigate or prosecute any alcohol or drug abuse patient.[facility] CenterIn the event this information is protected by the Federal Confidentiality of Alcohol and Drug Abuse Patient Records regulations: The Federal rules restrict any use of the information to criminally investigate or prosecute any alcohol or drug abuse patient.[facility] Reason for Visit (unrecogniz ed section and content) Reason Onset Date Comments Refill Request 09/02/2021 Reason Onset Date Comments Refill Request 09/09/2021 Reason Comments Established Patient Cough asthma Reason Onset Date Comments Refill Request 10/04/2021 Reason Onset Date Comments Refill Request 11/17/2021 Reason Comments external documents [facility] Reason Onset Date Comments Refill Request 03/19/2022 Reason Onset Date Comments Refill Request 04/16/2022 Reason Comments Follow Up ER follow up for Bro nchitis Reason Onset Date Comments Refill Request 07/17/2022 Reason Comments Patient Question Patient wants to kno w, if her device is MRI compatible. Please call patient at [phone] Reason Comments Refill Request Reason Comments Refill Request Needs an appt. L.ov. was 10/14/20 Reason Comments Cough Chest congestion, ST x1 week Reason Comments Cough Chest congestion, x 2 weeks has worsened Reason Comments Urinary Problem Hematuria, flank corby n urination pain x 2 days Reason Comments Hand Injury right x 3 days, fell Reason Comments Pre-op Exam Reason Comments Cough With chest congestio ns, sob, sinus problem x 1 week Reason Onset Date Comments Results 08/11/2024 Reason Comments Derm Problem R knee x2 weeks, see n 10/30 for same, no improvement Care Teams (unrecognized sec tion and content) Aircraft Navigator Relationship Specialty Start Date End Date Yanira Lyons MD [address] [place] [address] PCP - General Cardiology 12/25/08 Dagoberto Durham MD [address] [place] [address] Primary Staff Physician Cardiology 08/30/18 Aircraft Navigator Relationship Specialty Start Date End Date Yanira Lyons MD [address] [place] [address] PCP - General Cardiology 12/25/08 Dagoberto Durham MD [address] [place] [address] Primary Staff Physician Cardiology 08/30/18 Aircraft Navigator Relationship Specialty Start Date End Date Yanira Lyons MD [address] [place] [address] PCP - General Cardiology 12/25/08 Dagoberto Durham MD [address] [place] [address] Primary Staff Physician Cardiology 08/30/18 Aircraft Navigator Relationship Specialty Start Date End Date Yanira Lyons MD [address] [place] [address] PCP - General Cardiology 12/25/08 Dagoberto Durham MD [address] [place] [address] Primary Staff Physician Cardiology 08/30/18 Aircraft Navigator Relationship Specialty Start Date End Date Yanira Lyons MD [address] [place] [address] PCP - General Cardiology 12/25/08 Dagoberto Durham MD [address] [place] [address] Primary Staff Physician Cardiology 08/30/18 Aircraft Navigator Relationship Specialty Start Date End Date Yanira Lyons MD [address] [place] [address] PCP - General Cardiology 12/25/08 Dagoberto Durham MD [address] [place] [address] Primary Staff Physician Cardiology 08/30/18 Aircraft Navigator Relationship Specialty Start Date End Date Yanira Lyons MD [address] [place] [address] PCP - General Cardiology 12/25/08 Dagoberto Durham MD [address] [place] [address] Primary Staff Physician Cardiology 08/30/18 Aircraft Navigator Relationship Specialty Start Date End Date Yanira Lyons MD [address] [place] [address] PCP - General Cardiology 12/25/08 Dagoberto Durham MD [address] [place] [address] Primary Staff Physician Cardiology 08/30/18 Aircraft Navigator Relationship Specialty Start Date End Date Yanira Lyons MD [address] [place] [address] PCP - General Cardiology 12/25/08 Dagoberto Durham MD [address] [place] [address] Primary Staff Physician Cardiology 08/30/18 Aircraft Navigator Relationship Specialty Start Date End Date Yanira Lyons MD [address] [place] [address] PCP - General Cardiology 12/25/08 Dagoberto Durahm MD [address] [place] [address] Primary Staff Physician Cardiology 08/30/18 Team Status: Active Member Role Status Dates Dr. Yanira Lyons MD Family Provider Active Dr. Bhavana Rodríguez MD Primary Care Provider Active Team Status: Inactive Member Role Status Dates Dr. Bhavana Rodríguez MD Primary Care Provider, Attendi ng Provider Active Team Status: Inactive Member Role Status Dates Dr. Bhavana Rodríguez MD Primary Care Provider, Referri ng Provider Active Dr. Derek Schafer MD Attending Provider Active Team Status: Active Member Role Status Dates Dr. Bhavana Rodríguez MD Primary Care Provider Active Dr. Derek Schafer MD Attending Provider, Other Pro vider Active Team Status: Inactive Member Role Status Dates Dr. Yanira Lyons MD Primary Care Provider Active Dr. Gonzalo Garrido MD Attending Provider, Emergency Provider Active Team Status: Inactive Member Role Status Dates Dr. Yanira Lyons MD Primary Care Provider Active Dr. Shan Forde DO Attending Provider, Emergency P rojenn Active Team Status: Inactive Member Role Status Dates Dr. Bhavana Rodríguez MD Primary Care Provider Active Dr. Lian Piper MD Attending Provider, Referring Pr ovider Active Team Status: Active Member Role Status Dates Dr. Bhavana Rodríguez MD Primary Care Provider Active Dr. Derek Schafer MD Attending Provider Active Team Status: Active Member Role Status Dates Dr. Bhavana Rodrígeuz MD Primary Care Provider Active Naresh Dobbs MD Emergency Provider Active Dr. Shante Ramey MD Admit Provider, Attending Prov ider Active Team Status: Active Member Role Status Dates Dr. Bhavana Rodríguez MD Primary Care Provider Active Naresh Dobbs MD Emergency Provider Active Dr. Shante Ramey MD Admit Provider, Attending Provider, Other Provider Active Team Status: Inactive Member Role Status Dates Dr. Bhavana Rodríguez MD Primary Care Provider Active Naresh Dobbs MD Emergency Provider Active Dr. Shante Ramey MD Admit Provider, Attending Prov ider Active Team Status: Inactive Member Role Status Dates Dr. Bhavana Rodríguez MD Primary Care Provider Active Dr. Derek Schafer MD Attending Provider Active Team Status: Inactive Member Role Status Dates Dr. Bhavana Rodríguez MD Primary Care Pro vider, Attending Provider, Referring Provider Active Aircraft Navigator Relationship Specialty Start Date End Date Yanira Lyons MD [address] [place] [address] PCP - General Cardiology 12/25/08 Dagoberto Durham MD [address] [place] [address] Primary Staff Physician Cardiology 08/30/18 Aircraft Navigator Relationship Specialty Start Date End Date Yanira Lyons MD [address] [place] [address] PCP - General Cardiology 12/25/08 Dagoberto Durham MD [address] [place] [address] Primary Staff Physician Cardiology 08/30/18 Aircraft Navigator Relationship Specialty Start Date End Date Yanira Lyons MD [address] [place] [address] PCP - General Cardiology 12/25/08 Dagoberto Durham MD [address] [place] [address] Primary Staff Physician Cardiology 08/30/18 Team Status: Inactive Member Role Status Dates Dr. Bhavana Rodríguez MD Primary Care Provider, Referri ng Provider Active Dr. Marc Salazar MD Attending Provider Active Team Status: Active Member Role Status Dates Dr. Bhavana Rodríguez MD Primary Care Provider Active Dr. Maynor Meredith MD Attending Provider Active Dr. Marc Salazar MD Referring Provider Active Team Status: Inactive Member Role Status Dates Dr. Bhavana Rodríguez MD Primary Care Provider, Referri ng Provider Active Dr. Natalio Berkowitz MD Attending Provider Active Team Status: Active Member Role Status Dates Dr. Bhavana Rodríguez MD Primary Care Provider Active Marilyn Ambriz RN Attending Provider Active Team Status: Inactive Member Role Status Dates Dr. Bhavana Rodríguez MD Primary Care Provider Active Dr. Marc Salazar MD Attending Provider, Referring Pr ovider Active Team Status: Inactive Member Role Status Dates Dr. Bhavana Rodríguez MD Primary Care Provider Active Dr. Natalio Berkowitz MD Attending Provider, Referring Pr ovider Active Team Status: Inactive Member Role Status Dates Dr. Bhavana Rodríguez MD Primary Care Provider Active Dr. Mainor Wallace DO Emergency Provider Active Team Status: Active Member Role Status Dates Dr. Bhavana Rodríguez MD Primary Care Provider Active Dr. Natalio Berkowitz MD Attending Provider, Referring Pr ovider Active Team Status: Inactive Member Role Status Dates Dr. Bhavana Rodríguez MD Primary Care Provider Active Dr. Mainor Wallace DO Attending Provider, Emergency P rovider Active Team Status: Inactive Member Role Status Dates Dr. Bhavana Rodríguez MD Primary Care Provider Active Dr. Tr Quintanilla DO Emergency Provider Active Team Status: Active Member Role Status Dates Dr. Bhavana Rodríguez MD Primary Care Provider Active Dr. Natalio Berkowitz MD Attending Provider , Referring Provider, Other Provider Active Team Status: Active Member Role Status Dates Dr. Bhavana Rodríguez MD Primary Care Provider Active Cyndi Elizondo ALUMINUM SIDING APPLICATOR, ALUMINUM SIDING APPLICATOR-C Attending Provider Active Team Status: Active Member Role Status Dates Dr. Bhavana Rodríguez MD Primary Care Provider Active Dr. Natalio Berkowitz MD Attending Provider, Other Provid er Active Team Status: Inactive Member Role Status Dates Dr. Bhavana Rodríguez MD Primary Care Pro vider, Attending Provider, Referring Provider Active Cyndi Elizondo ALUMINUM SIDING APPLICATOR, ALUMINUM SIDING APPLICATOR-C Other Provider Active Team Status: Inactive Member Role Status Dates Dr. Bhavana Rodríguez MD Primary Care Provider Active Dr. rT Quintanilla DO Attending Provider, Emergency P rovider Active Aircraft Navigator Relationship Specialty Start Date End Date Yanira Lyons MD [address] [place] [address] PCP - General Cardiology 12/25/08 Dagoberto Durham MD [address] [place] [address] Primary Staff Physician Cardiology 08/30/18 Team Status: Inactive Member Role Status Dates Dr. Bhavana Rodríguez MD Primary Care Provider, Referri ng Provider Active Nadeen Mcclain Attending Provider Active Team Status: Inactive Member Role Status Dates Dr. Bhavana Rodríguez MD Primary Care Pro vider, Attending Provider, Referring Provider Active Aydin Cee ALUMINUM SIDING APPLICATOR, ALUMINUM SIDING APPLICATOR-C Other Provider Active Team Status: Inactive Member Role Status Dates Dr. Bhavana Rodríguez MD Primary Care Provider Active Aydin Cee ALUMINUM SIDING APPLICATOR, ALUMINUM SIDING APPLICATOR-C Attending Provider, Referring Pro vider Active Aircraft Navigator Relationship Specialty Start Date End Date Yanira Lyons MD [address] [place] [address] PCP - General Cardiology 12/25/08 Dagoberto Durham MD [address] [place] [address] Primary Staff Physician Cardiology 08/30/18 Aircraft Navigator Relationship Specialty Start Date End Date Yanira Lyons MD [address] [place], [place] [address] PCP - General Cardiology 12/25/08 Dagoberto Durham MD [address] [place] [address] Primary Staff Physician Cardiology 08/30/18 Aircraft Navigator Relationship Specialty Start Date End Date Bhavana Rodríguez MD [address] [address] PCP - General Internal Medicine 03/01/24 Dagoberto Durham MD [address] [place] [place] [address] Primary Staff Physician Cardiology 08/30/18 Aircraft Navigator Relationship Specialty Start Date End Date Bhavana Rodríguez MD [address] [address] PCP - General Internal Medicine 03/01/24 Dagoberto Durham MD [address] [place], [place] [id number] Primary Staff Physician Cardiology 08/30/18 Aircraft Navigator Relationship Specialty Start Date End Date Yanira Lyons MD [address] [place], [place] [address] PCP - General Cardiology 12/25/08 02/29/24 Dagoberto Durham MD [address] [place], [place] [id number] Primary Staff Physician Cardiology 08/30/18 Aircraft Navigator Relationship Specialty Start Date End Date Bhavana Rodríguez MD [address] [address] PCP - General Internal Medicine 03/01/24 Dagoberto Durham MD [address] [place], [place] [address] Primary Staff Physician Cardiology 08/30/18 Aircraft Navigator Relationship Specialty Start Date End Date Yanira Lyons MD [address] [place] [address] PCP - General Cardiology 12/25/08 02/29/24 Dagoberto Durham MD [address] [place], [place] [address] Primary Staff Physician Cardiology 08/30/18 Aircraft Navigator Relationship Specialty Start Date End Date Yanira Lyons MD [address] [place], [place] [address] PCP - General Cardiology 12/25/08 02/29/24 Dagoberto Durham MD [address] [place], [place] [address] Primary Staff Physician Cardiology 08/30/18 Aircraft Navigator Relationship Specialty Start Date End Date Yanira Lyons MD [address] [place], [place] [address] PCP - General Cardiology 12/25/08 02/29/24 Dagoberto Durham MD [address] [place], [place] [address] Primary Staff Physician Cardiology 08/30/18 Aircraft Navigator Relationship Specialty Start Date End Date Bhavana Rodríguez MD [address] 6[address] PCP - General Internal Medicine 03/01/24 Dagoberto Durham MD [address] [place], [place] [address] Primary Staff Physician Cardiology 08/30/18 Aircraft Navigator Relationship Specialty Start Date End Date Yanira Lyons MD [address] [place], [place] [address] PCP - General Cardiology 12/25/08 02/29/24 Dagoberto Durham MD [address] [place] [address] Primary Staff Physician Cardiology 08/30/18 Aircraft Navigator Relationship Specialty Start Date End Date Bhavana Rodríguez MD [address] [facility] [address] [place], [place] [address] PCP - General Internal Medicine 03/01/24 Dagoberto Durham MD [address] [place] [address] Primary Staff Physician Cardiology 08/30/18 Aircraft Navigator Relationship Specialty Start Date End Date Bhavana Rodríguez MD [address] [address]- PCP - General Internal Medicine 03/01/24 Dagoberto Durham MD [address] [place] [address] Primary Staff Physician Cardiology 08/30/18 Aircraft Navigator Relationship Specialty Start Date End Date Bhavana Rodríguez MD [address] [address]- PCP - General Internal Medicine 03/01/24 Dagoberto Durham MD [address] [place] [address] Primary Staff Physician Cardiology 08/30/18 Aircraft Navigator Relationship Specialty Start Date End Date Bhavana Rodríguez MD [address] [facility] [address] [place] [address] PCP - General Internal Medicine 03/01/24 Dagoberto Durham MD [address] [place] [id number] Primary Staff Physician Cardiology 08/30/18 Team Status: Active Member Role Status Dates Dr. Bhavana Rodríguez MD Primary Care Provider Active Team Status: Inactive Member Role Status Dates Dr. Bhavana Rodríguez MD Primary Care Provider Active Start: May 31, 2024 End: May 31, 2024 Dr. Bhavana Rodríguez MD Referring Provider Active Start: May 31, 2024 End: May 31, 2024 YOGESH Mondragon Attending Provider Active Start: May 31, 2024 End: May 31, 2024 Team Status: Inactive Member Role Status Dates Dr. Bhavana Rodríguez MD Primary Care Provider Active Start: June 01, 2024 End: June 01, 2024 Dr. Bhavana Rodríguez MD Attending Provider Active Start: June 01, 2024 End: June 01, 2024 Dr. Bhavana Rodríguez MD Referring Provider Active Start: June 01, 2024 End: June 01, 2024 Team Status: Inactive Member Role Status Dates Dr. Bhavana Rodríguez MD Primary Care Provider Active Start: June 16, 2024 End: June 16, 2024 Aydin Cee ALUMINUM SIDING APPLICATOR, ALUMINUM SIDING APPLICATOR-C Attending Provider Active S tart: June 16, 2024 End: June 16, 2024 Aydin Cee ALUMINUM SIDING APPLICATOR, ALUMINUM SIDING APPLICATOR-C Referring Provider Active S tart: June 16, 2024 End: June 16, 2024 Team Status: Active Member Role Status Dates Dr. Bhavana Rodríguez MD Primary Care Provider Active Start: June 16, 2024 Dr. Natalio Berkowitz MD Attending Provider Active Start: June 16, 2024 Team Status: Inactive Member Role Status Dates Dr. Bhavana Rodríguez MD Primary Care Provider Active Start: June 21, 2024 End: June 21, 2024 YOGESH Mondragon Attending Provider Active Start: June 21, 2024 End: June 21, 2024 YOGESH Mondragon Referring Provider Active Start: June 21, 2024 End: June 21, 2024 Team Status: Active Member Role Status Dates Dr. Bhavana Rodríguez MD Primary Care Provider Active Start: June 22, 2024 Aydin Cee NP, ALUMINUM SIDING APPLICATOR-C Attending Provider Active S tart: June 22, 2024 Team Status: Inactive Member Role Status Dates Dr. Bhavana Rodríguez MD Primary Care Provider Active Start: June 27, 2024 End: June 27, 2024 Meghan Barbour NP-C Attending Provider Active Start: June 27, 2024 End: June 27, 2024 Meghan Barbour NP-C Referring Provider Active Start: June 27, 2024 End: June 27, 2024 Team Status: Active Member Role Status Dates Dr. Bhavana Rodríguez MD Primary Care Provider Active Start: July 03, 2024 Meghan Barbour NP-C Referring Provider Active Start: July 03, 2024 YOGESH Mondragon Other Provider Active St art: July 03, 2024 Dr. Vincent Baeza DO Attending Provider Active S tart: July 03, 2024 Team Status: Inactive Member Role Status Dates Dr. Bhavana Rodríguez MD Primary Care Provider Active Start: July 17, 2024 End: July 17, 2024 Dr. Maynor Meredith MD Attending Provider Active S tart: July 17, 2024 End: July 17, 2024 Dr. Maynor Meredith MD Referring Provider Active S tart: July 17, 2024 End: July 17, 2024 Team Status: Inactive Member Role Status Dates Dr. Bhavana Rodríguez MD Primary Care Provider Active Start: July 31, 2024 End: July 31, 2024 JOSTIN DAVIS Attending Provider Active Start: July 31, 2024 End: July 31, 2024 JOSTIN DAVIS Referring Provider Active Start: July 31, 2024 End: July 31, 2024 Team Status: Inactive Member Role Status Dates Dr. Bhavana Rodríguez MD Primary Care Provider Active Start: August 25, 2024 End: August 25, 2024 Dr. Bhavana Rodríguez MD Attending Provider Active Start: August 25, 2024 End: August 25, 2024 Dr. Bhavana Rodríguez MD Referring Provider Active Start: August 25, 2024 End: August 25, 2024 Team Status: Inactive Member Role Status Dates Dr. Bhavana Rodríguez MD Primary Care Provider Active Start: August 25, 2024 End: August 25, 2024 Dr. Bhavana Rodríguez MD Referring Provider Active Start: August 25, 2024 End: August 25, 2024 YOGESH Mondragon Attending Provider Active Start: August 25, 2024 End: August 25, 2024 Team Status: Inactive Member Role Status Dates Dr. Bhavana Rodríguez MD Primary Care Provider Active Start: September 27, 2024 End: September 27, 2024 YOGESH Mondragon Attending Provider Active Start: September 27, 2024 End: September 27, 2024 YOGESH Mondragon Referring Provider Active Start: September 27, 2024 End: September 27, 2024 Team Status: Active Member Role Status Dates Dr. Bhavana Rodríguez MD Primary Care Provider Active Start: October 02, 2024 Bang Lynne Attending Provider Active Start: A 2024 Bang Lynne Referring Provider Active Start: A 2024 Aircraft Navigator Relationship Specialty Start Date End Date Bhavana Rodríguez MD [address] [facility] [address] [place] [address] PCP - General Internal Medicine 03/01/24 Dagoberto Durham MD [address] [place] [address] Primary Staff Physician Cardiology 08/30/18 Team Status: Inactive Member Role Status Dates Dr. Bhavana Rodríguez MD Primary Care Provider Active Start: October 16, 2024 End: October 16, 2024 Dr. Maynor Meredith MD Attending Provider Active S tart: October 16, 2024 End: October 16, 2024 Team Status: Inactive Member Role Status Dates Dr. Bhavana Rodríguez MD Primary Care Provider Active Start: October 20, 2024 End: October 20, 2024 Dr. Bhavana Rodríguez MD Attending Provider Active Start: October 20, 2024 End: October 20, 2024 Dr. Bhavana Rodríguez MD Referring Provider Active Start: October 20, 2024 End: October 20, 2024 Team Status: Active Member Role Status Dates Dr. Bhavana Rodríguez MD Primary Care Provider Active Start: October 23, 2024 Bang Lynne Attending Provider Active Start: ay 2024 Bang Shall Referring Provider Active Start: M ay 2024 Aircraft Navigator Relationship Specialty Start Date End Date Bhavana Rodríguez MD [address] [address] PCP - General Internal Medicine 03/01/24 Dagoberto Durham MD [address] [place] [address] Primary Staff Physician Cardiology 08/30/18 Aircraft Navigator Relationship Specialty Start Date End Date Bhavana Rodríguez MD [address] [facility] [address] [place] [address] PCP - General Internal Medicine 03/01/24 Dagoberto Durham MD [address] [place] [address] Primary Staff Physician Cardiology 08/30/18 Team Status: Inactive Member Role Status Dates Dr. Bhavana Rodríguez MD Primary Care Provider Active Start: October 16, 2024 End: October 16, 2024 Dr. Maynor Meredith MD Attending Provider Active S tart: October 16, 2024 End: October 16, 2024 Dr. Maynor Meredith MD Referring Provider Active S tart: October 16, 2024 End: October 16, 2024 Team Status: Active Member Role Status Dates Dr. Bhavana Rodríguez MD Primary Care Provider Active Start: November 09, 2024 Bang Lynne Attending Provider Active Start: ay 2024 Bang Lynne Referring Provider Active Start: M ay 2024 Team Status: Inactive Member Role Status Dates Dr. Bhavana Rodríguez MD Primary Care Provider Active Start: November 13, 2024 End: November 13, 2024 Dr. Bhavana Rodríguez MD Attending Provider Active Start: November 13, 2024 End: November 13, 2024 Team Status: Inactive Member Role Status Dates Dr. Bhavana Rodríguez MD Primary Care Provider Active Start: November 13, 2024 End: November 13, 2024 Dr. Bhavana Rodríguez MD Attending Provider Active Start: November 13, 2024 End: November 13, 2024 Dr. Bhavana Rodríguez MD Referring Provider Active Start: November 13, 2024 End: November 13, 2024 Team Status: Active Member Role Status Dates Dr. Bhavana Rodríguez MD Primary Care Provider Active Start: November 16, 2024 Bang Shall Attending Provider Active Start: J une 2024 Bang Shall Referring Provider Active Start: J une 2024 Team Status: Inactive Member Role Status Dates Dr. Bhavana Rodríguez MD Primary Care Provider Active Start: November 20, 2024 End: November 20, 2024 Bang Shall Attending Provider Active Start: J une 2024 End: November 20, 2024 Bang Shall Referring Provider Active Start: J une 2024 End: November 20, 2024 Team Status: Inactive Member Role Status Dates Dr. Bhavana Rodríguez MD Primary Care Provider Active Start: December 07, 2024 End: December 07, 2024 Dr. Bhavana Rodríguez MD Attending Provider Active Start: December 07, 2024 End: December 07, 2024 Team Status: Active Member Role Status Dates Dr. Bhavana Rodríguez MD Primary Care Provider Active Start: December 07, 2024 Dr. Bhavana Rodríguez MD Attending Provider Active Start: December 07, 2024 Dr. Bhavana Rodríguez MD Referring Provider Active Start: December 07, 2024 Team Status: Active Member Role/Relationship Status Dates Dr. Bhavana Rodríguez MD Primary Care Provider Active Team Status: Inactive Member Role/Relationship Status Dates Dr. Bhavana Rodríguez MD Primary Care Provider Active Start: August 25, 2024 End: August 25, 2024 Dr. Bhavana Rodríguez MD Attending Provider Active Start: August 25, 2024 End: August 25, 2024 Dr. Bhavana Rodríguez MD Referring Provider Active Start: August 25, 2024 End: August 25, 2024 Team Status: Inactive Member Role/Relationship Status Dates Dr. Bhavana Rodríguez MD Primary Care Provider Active Start: August 25, 2024 End: August 25, 2024 Dr. Bhavana Rodríguez MD Referring Provider Active Start: August 25, 2024 End: August 25, 2024 YOGESH Mondragon Attending Provider Active Start: August 25, 2024 End: August 25, 2024 Team Status: Inactive Member Role/Relationship Status Dates Dr. Bhavana Rodríguez MD Primary Care Provider Active Start: September 27, 2024 End: September 27, 2024 YOGESH Mondragon Attending Provider Active Start: September 27, 2024 End: September 27, 2024 YOGESH Mondragon Referring Provider Active Start: September 27, 2024 End: September 27, 2024 Team Status: Inactive Member Role/Relationship Status Dates Dr. Bhavana Rodríguez MD Primary Care Provider Active Start: October 16, 2024 End: October 16, 2024 Dr. Maynor Meredith MD Attending Provider Active S tart: October 16, 2024 End: October 16, 2024 Dr. Maynor Meredith MD Referring Provider Active S tart: October 16, 2024 End: October 16, 2024 Team Status: Inactive Member Role/Relationship Status Dates Dr. Bhavana Rodríguez MD Primary Care Provider Active Start: October 20, 2024 End: October 20, 2024 Dr. Bhavana Rodríguez MD Attending Provider Active Start: October 20, 2024 End: October 20, 2024 Dr. Bhavana Rodríguez MD Referring Provider Active Start: October 20, 2024 End: October 20, 2024 Team Status: Inactive Member Role/Relationship Status Dates Dr. Bhavana Rodríguez MD Primary Care Provider Active Start: November 13, 2024 End: November 13, 2024 Dr. Bhavana Rodríguez MD Attending Provider Active Start: November 13, 2024 End: November 13, 2024 Team Status: Inactive Member Role/Relationship Status Dates Dr. Bhavana Rodríguez MD Primary Care Provider Active Start: November 13, 2024 End: November 13, 2024 Dr. Bhavana Rodríguez MD Attending Provider Active Start: November 13, 2024 End: November 13, 2024 Dr. Bhavana Rodríguez MD Referring Provider Active Start: November 13, 2024 End: November 13, 2024 Team Status: Inactive Member Role/Relationship Status Dates Dr. Bhavana Rodríguez MD Primary Care Provider Active Start: November 20, 2024 End: November 20, 2024 Bang Anabel Attending Provider Active Start: J une 2024 End: November 20, 2024 Bangmerry Lynne Referring Provider Active Start: J une 2024 End: November 20, 2024 Team Status: Inactive Member Role/Relationship Status Dates Dr. Bhavana Rodríguez MD Primary Care Provider Active Start: December 07, 2024 End: December 07, 2024 Dr. Bhavana Rodríguez MD Attending Provider Active Start: December 07, 2024 End: December 07, 2024 Team Status: Inactive Member Role/Relationship Status Dates Dr. Bhavana Rodríguez MD Primary Care Provider Active Start: December 07, 2024 End: December 07, 2024 Dr. Bhavnaa Rodríguez MD Attending Provider Active Start: December 07, 2024 End: December 07, 2024 Dr. Bhavana Rodríguez MD Referring Provider Active Start: December 07, 2024 End: December 07, 2024 Goals (unrecognized section and content) Goals may be documented in a n alternate section Care Team (unrecognized sect ion and content) Care Team Personnel Name: YANIRA LYONS MD Member Role: Primary Care Physician Address: Address: [address] [place] [phone] Name: MARIA EUGENIA Fournier Position: AO RN Member Role: ED RN Name: MARY ALICE CHAVIRA MD Position: Resident Member Role: Resident Address: Address: [address] [place] [id number] Care Team Related Persons Name: DMITRY MANCUSO Address: Home [address] [address] Name: DOMINGA MANCUSO Address: Home [address] [place] [address] Name: YANIRA MANCUSO <item> Privacy Markings (unrecogniz [...] BE BASED ON THE PRIMARY CLINICAL RECORDS. [employer] provides no warranty or guarantee of the accuracy or completeness of information in this document.
--- NOTE | 2024-12-21 07:30 | BI_ITS ---
EXAM: SCRN MAMM (CAD)W/ULISES BILAT DATE: 12/21/2024 CLINICAL HISTORY: F, Age 54 y/o , BREAST CANCER SCREENING TECHNIQUE: SCRN MAMM (CAD)W/ULISES BILAT COMPARISON: Prior exam(s) dated 07/22/2021, 11/01/2020, 01/14/2021. FINDINGS: TISSUE DENSITY: There are scattered areas of fibroglandular density. There is a left chest wall cardiac battery pack, which obscures the underlying axillary tissue and posterior tissues. Bilateral Breast Mammographic Findings: No significant masses, calcifications or other abnormalities are identified. BI/SCRN MAMM (CAD)W/ULISES BILAT IMPRESSION: There is no mammographic evidence of malignancy. OVERALL FINAL ASSESSMENT BI-RADS 1: NEGATIVE. RECOMMENDATION: Routine annual follow-up in 1 Year A letter with findings and recommendations will be mailed to the patient. Reading Location: [id number]
== END | disposition home or self-care (01) ==
PROVIDERS: PCP Internal Medicine; Referring Provider Internal Medicine; Visit Provider Internal Medicine
DX: Z12.31 Encounter for screening mammogram for malignant neoplasm of breast (principal); R74.8 Abnormal levels of other serum enzymes; R10.11 Right upper quadrant pain
CPT/HCPCS: 76705; 77063; 77067